=== PATIENT | female | born 1960 | race Caucasian/White ===

== ENCOUNTER → 2016-11-11 | Outpatient (CLI) | payer MEDICARE, OTHER | END | disposition home or self-care (01) | LOC: LABPAT 07:25 | PROVIDERS: ATTEND Orthopaedic Surgery | DX: Z01.812 Encounter for preprocedural laboratory examination (principal) | CPT/HCPCS: 86850; 86900; 86901; 87070 ==

== ENCOUNTER 2016-11-22 06:30 | Inpatient (IN) | payer MEDICARE, OTHER ==
[2016-11-18 10:45] VITALS: BMI 33.9
--- NOTE | 2016-11-21 20:51 | HP ---
DATE OF ADMISSION: CHIEF COMPLAINT: Right hip pain. HISTORY OF PRESENT ILLNESS: The patient is a 56-year-old female on disability who presents with progressive right hip pain secondary to osteoarthrosis despite conservative measures. She has pain that limits her normal weight-bearing activities. She has been taking Irwin for this. PAST MEDICAL HISTORY: Significant for asthma, arthritis, hypertension, and depression. PAST SURGICAL HISTORY: Significant for right and left knee arthroscopy. FAMILY HISTORY: Significant for heart disease and cancer. SOCIAL HISTORY: Significant for 1 pack per day tobacco use x 40 years; however, she quit 3 years ago. CURRENT MEDICATIONS: 1. Atorvastatin. 2. Lamictal. 3. Hydrochlorothiazide. 4. Losartan. 5. Lyrica. 6. Metformin. 7. Prilosec. 8. Xanax. 9. Irwin. She has GI upset with Motrin; however, no telly drug allergies. On examination, the patient is approximately 5 feet 4 inches, 172 pounds of endomorphic habitus. HEENT exam is nonfocal. Neck is supple. Passive motion of the right hip, flexion 80 degrees, external rotation with the hip flexed 60 degrees, internal rotation is 10 degrees with pain. Clinically, she has got 1 cm shortening of right lower extremity compared to the left. Her distal neurovascular exam appears be intact in the right lower extremity. AP of the pelvis obtained in the office show severe right hip osteoarthrosis. IMPRESSION: Right hip severe osteoarthrosis-symptomatic. RECOMMENDATIONS: I talked to the patient at length regarding her treatment options. At this point, she is quite limited because of pain related to her osteoarthrosis. After thorough discussion of her options, she opts to proceed with surgery. We will plan to proceed with right total hip arthroplasty. Risks and benefits are discussed at length in layman's terms. We will institute DVT prophylaxis postoperatively. Patient underwent preoperative cardiac evaluation by Dr. Salcedo. AYALA
[~2016-11-22 06:30] MED LIST: ACETAMINOPHEN TAB 500 MG TAB PO ONE; DEXAMETHASONE SOD PHOSPHATE 10 MG/ML 1 ML VIAL IV ONE; LIDOCAINE 1% 20 ML VIAL (10MG/ML) FOR IV START INTRADERMA PRN; MELOXICAM 7.5 MG TAB PO ONE; MIDAZOLAM 2 MG/2 ML VIAL IV PRN; ONDANSETRON 4 MG/2 ML VIAL IVP ONE; SCOPOLAMINE 1.5MG/72HR PATCH TRANSDERM ONE; TRANEXAMIC ACID 1,000 MG in SODIUM CHLORIDE 0.9% 100 ML IVPB ONE; ceFAZolin 2 GM in SODIUM CHLORIDE 0.9% 100 ML IVPB ONE
[2016-11-22] MEDS: LACTATED RINGERS 1,000 ML IV SCH ×2 (06:56→11:46)
[2016-11-22 07:12] LABS: Glucose,Whole Blood 122 mg/dL (75-99)
[2016-11-22] MEDS ORDERED: fentaNYL (PF) 50 MCG/ML 2 ML AMP ONE (08:00)
[2016-11-22] MEDS ORDERED: HYDROmorphone (PF) 1 MG/ML ONE (08:00)
[2016-11-22] MEDS ORDERED: SODIUM CHLORIDE 0.9% 100 ML BAG ONE (08:00)
[2016-11-22] MEDS ORDERED: MIDAZOLAM 2 MG/2 ML VIAL ONE (08:00)
[2016-11-22] MEDS ORDERED: PHENYLEPHRINE-0.9% NACL SYG 1 MG/10 ML SYRINGE ONE (08:00)
[2016-11-22] MEDS ORDERED: PROPOFOL 10 MG/ML 20 ML VIAL IV ONE (08:00)
[2016-11-22] MEDS ORDERED: TRANEXAMIC ACID 1,000 MG/10 ML VIAL ONE (08:00)
[2016-11-22] MEDS ORDERED: SODIUM CHLORIDE 0.9% IRRIG 1,000 ML BTL IRRIGATION ONE (08:00)
[2016-11-22] MEDS ORDERED: HEPARIN SODIUM,PORCINE 10,000 UNIT/ML 1 ML VIAL ONE (08:00)
[2016-11-22] MEDS ORDERED: LACTATED RINGERS 1,000 ML IV ONE (08:53)
[2016-11-22] MEDS ORDERED: ceFAZolin 3,000 MG in SODIUM CHLORIDE 0.9% IRRIGATIO 3,000 ML IRRIGATION ONE (10:08)
[2016-11-22] MEDS ORDERED: ONDANSETRON 4 MG/2 ML VIAL IVP PRN ×2 (10:18→11:24)
[2016-11-22] MEDS ORDERED: NALOXONE 0.4 MG/ML 1 ML VIAL IV PRN ×2 (10:18→11:24)
[2016-11-22] MEDS ORDERED: HYDROmorphone 1 MG/ML 1 ML SYRINGE IVP PRN ×2 (10:18)
[2016-11-22] MEDS ORDERED: traMADol 50 MG TAB PO PRN (10:18)
[2016-11-22] MEDS ORDERED: MAGNESIUM HYDROXIDE 2,400 MG/10 ML CUP PO PRN (10:18)
[2016-11-22] MEDS ORDERED: HYDROcodone/APAP 7.5-325MG 1 EACH TAB PO PRN (10:18)
--- NOTE | 2016-11-22 10:41 | P.OP ---
Date of Procedure: 11/22/16 Preoperative Diagnosis: Severe right hip osteoarthrosis-primary Postoperative Diagnosis: Same Procedure(s) Performed: Right total hip arthroplasty/anterior approach/press-fit Implants: Depuy Corail size 9 press-fit high offset collared femoral stem, 32 mm +1 cobalt chrome femoral head, 50 mm acetabular shell with neutral polyethylene liner. Anesthesia: spinal Surgeon: Alex Patel Manager Clinical #1: Chang Ramos Estimated Blood Loss (ml): 750 Pathology: other (Femoral head) Condition: stable Disposition: PACU Indications for Procedure: The patient's a 56-year-old female who presents to progressive right hip pain secondary osteoarthrosis despite conservative measures. A discussion of the risks and benefits of operative intervention versus continued conservative measures was made with the patient. She opted to proceed with surgery. Operative risks to include infection, neurovascular injury, development of blood clots, possible fracture, possible dislocation, possible leg length discrepancy and need for subsequent procedures was discussed. Informed consent was obtained. Operative Findings: As below Description of Procedure: The patient was brought to the operating room, and after induction of spinal anesthesia was placed supine on the Corrie table. Fluoroscopy used to confirm the pelvis was level. The right lower extremity was prepped and draped in normal fashion. Preoperative templating was previously performed to estimate component positioning and sizes. A 12 cm incision was then made starting 3 finger breaths posterior and 2 finger breaths distal to the ASIS. The skin was incised sharply. Subcutaneous tissues were divided sharply. Electrocautery was used for hemostasis. The underlying fascia was identified. This was opened just anterior to the perforators. The muscle fibers were bluntly dissected between the tensor fascia sebas and the sartorius. A retractors placed along the superior femoral neck. The posterior fascia was opened with electrocautery. The lateral circumflex vessels were identified and coagulated prior to transection. A retractor was placed perpendicular to the inguinal ligament over the anterior acetabular rim. A wide capsulotomy was performed. The saddle region was debrided. The hip was then gently dislocated utilizing a corkscrew. It was then relocated. A femoral neck osteotomy was made 1-1/2 cm above the level lesser trochanter with a sagittal saw at a 45 angle the shaft. The head was then extracted. Attention was paid towards preparing the acetabulum. Retractors were placed anterior and posteriorly. The remaining labral and capsular tissue sharply debrided clearly defining the acetabular margins. I began reaming with a 39 mm reamer taking care to initially medialize and then reaming at 45 of abduction and 20 of anteversion. Sequential reaming is performed up to 49 mm. This was down to a bleeding bony surface. A trial 50 mm acetabular shell was inserted in the same orientation and was fully seated. There is good rim fit and stability. This was verified with fluoroscopy. The trial acetabular shell was removed and the final one inserted in the same 45 of abduction and 20 of anteversion. This was fully seated. There was good rim fit and stability. I did place a posterior superior 6.5 mm x 25 mm cancellus screw with good purchase. A neutral polyethylene liner was gently impacted. Care was taken to avoid any soft tissue interposition. Pulsatile lavage was utilized. Attention was then paid towards preparing the proximal femur. The proximal femur was exposed and a box chisel was used to open the metaphyseal region. A canal finder was used to find the femoral canal. Sequential broaching was performed up to a size 9 high offset stem. A calcar mill was used to fashion the medial calcar. Care was taken to lateralize proximally. A high offset neck along with a 32 mm +1 trial head was placed. The hip was gently relocated. Fluoroscopy was used to verify leg length and component positioning. The hip was gently dislocated. The trial components were then removed. The size 9 high offset collared femoral stem was inserted parallel to the posterior cortex of the femur and was fully seated. There was good rotational stability. The 32 mm +1 cobalt chrome femoral head was gently impacted. The hip was gently relocated. Placed in full extension with 60 of external rotation and then 60 of extension and 60 of external rotation and was felt to be stable. I felt there was adequate taoism was leg length and soft tissue tension. Pulsatile lavage was again utilized. The fascia was closed with running 0 Vicryl suture. The subcutaneous tissues reapproximated interrupted 2-0 Vicryl sutures. The skin was reapproximated with 3-0 subcuticular strata fix suture. Skin tape and adhesive was applied. A sterile dressing was applied. The patient was awoken from sedation and transferred to the recovery room in good condition. Blood loss was estimated at 750 mL. She did receive over 300 cc of Cell Saver back. She also received 2 doses of IV TXA. Sponge and needle counts were correct at the end the case. No complications were incurred.
[2016-11-22] MEDS: HYDROmorphone 1 MG/ML 1 ML SYRINGE IVP PRN ×2 (10:54→11:02)
--- NOTE | 2016-11-22 11:08 | XR ---
Limited right hip HISTORY: Status post hip arthroplasty 2 intraoperative C-arm images document the procedure
--- NOTE | 2016-11-22 11:08 | FL ---
Fluoroscopy HISTORY: Pain 57 seconds fluoroscopy time supplied to the referring clinician. 2 intraoperative C-arm images docum ent the procedure. See dictated report from orthopedic surgery.
--- NOTE | 2016-11-22 11:16 | XR ---
Right hip HISTORY: Postop Single frontal view of the right hip is submitted. Patient is status post right hip arthroplasty. There is anatomic alignment. No evident fracture. This density present in the soft tissues compatible with postop day. Small ossific densities are also pre sent which are likely postoperative. IMPRESSION: Orthopedic follow-up
[2016-11-22] MEDS ORDERED: MORPHINE SULFATE 4 MG/ML SYRINGE IVP PRN (11:24)
[2016-11-22] MEDS ORDERED: diphenhydrAMINE 50 MG/ML 1 ML VIAL IVP PRN (11:24)
[2016-11-22 11:56] LABS: Glucose,Whole Blood 141 mg/dL (75-99)
[2016-11-22] MEDS: MORPHINE SULFATE 4 MG/ML SYRINGE IVP PRN ×3 (14:21→20:36)
[2016-11-22] MEDS: ceFAZolin 2 GM in SODIUM CHLORIDE 0.9% 100 ML IVPB SCH ×2 (15:47→23:13)
[2016-11-22 16:37] LABS: Glucose,Whole Blood 218 mg/dL (75-99)
[2016-11-22] MEDS: SENNOSIDES-DOCUSATE SODIUM 1 EACH TAB PO SCH (20:36)
[2016-11-22 20:45] LABS: Glucose,Whole Blood 153 mg/dL (75-99)
[2016-11-22] MEDS ORDERED: ALBUTEROL NEBULIZED 2.5 MG/3 ML INHALATION PRN (21:06)
--- NOTE | 2016-11-22 22:40 | CONS ---
DATE OF CONSULTATION: 11/22/2016 REASON FOR CONSULTATION: Medical management, requested by Dr. Patel. CONSULTATION: This is a very pleasant 56-year-old patient of Dr. Bowers whose chronic stable medical conditions include COPD, diabetes, fibromyalgia, hyperlipidemia, hypertension, bipolar and chronic respiratory failure, on 2 liters of oxygen at home. Patient has undergone a right total hip arthroplasty. Patient had nausea earlier today, which is now settling down. Oxygen is back on. Breathing is stable. Pain is controlled. No chest pain. REVIEW OF SYSTEMS: CONSTITUTIONAL: None. HEENT: None. RESPIRATORY: Occasionally short of breath. CARDIOVASCULAR: None. GASTROINTESTINAL: None. GENITOURINARY: None. MUSCULOSKELETAL: Aches and pains in the joints. DERMATOLOGICAL: None. HEMATOLOGIC: None. LYMPHATICS: None. PSYCHIATRY: None. NEUROLOGICAL: None. PAST MEDICAL HISTORY: 1. COPD. 2. Diabetes mellitus, type 2. 3. Fibromyalgia. 4. Hypertension. 5. Hyperlipidemia. 6. Bipolar disorder. 7. Schizoaffective disorder. 8. Chronic respiratory failure, on 2 liters of oxygen at home. 9. Sleep apnea; does not use a CPAP machine. PAST SURGICAL HISTORY: 1. Appendectomy. 2. Hernia repair. 3. Hysterectomy. 4. Tonsillectomy. 5. Right total knee arthroplasty. 6. ASD repair. 7. Bilateral eye muscle surgery. 8. Right cataract surgery. SOCIAL HISTORY: Patient smoked a pack to a pack and a half a day for 40 years; stopped in 2007. Lives with her daughter. FAMILY HISTORY: Alcoholism, brain cancer, stroke. HOME MEDICATIONS: 1. Metformin 500 mg p.o. b.i.d. 2. Lamictal 150 mg p.o. b.i.d. 3. Lyrica 100 mg p.o. b.i.d. 4. Potassium 10 mEq p.o. b.i.d. 5. Omeprazole 20 mg p.o. b.i.d. 6. Trileptal 150 mg p.o. b.i.d. 7. Antivert 50 mg p.o. b.i.d. 8. Cozaar 50 mg p.o. daily. 9. Garrison 7.5 one tablet q.4 p.r.n. 10. Advair HFA 2 puffs b.i.d. 11. Vitamin D3 1000 units p.o. daily. 12. Hydrochlorothiazide ( ) mg p.o. daily. 13. Lipitor 20 mg p.o. daily. 14. ProAir 1 puff q.6 p.r.n. 15. Xanax 0.5 p.o. q.i.d. 16. Xarelto 10 mg p.o. daily. ALLERGIES: IBUPROFEN causing vomiting. On examination, temperature 97.6, pulse 77, respiration 16, blood pressure 123/73, pulse ox 94% on room air. GENERAL APPEARANCE: Well built; BMI of 33.9. Sitting up in bed. EYES: Pupils equal. Conjunctivae normal. HEENT: External appearance of nose and ears normal. Oral cavity normal. NECK: JVD not raised. Mass not palpable. RESPIRATORY: Effort normal. LUNGS: Diminished breath sounds. CARDIOVASCULAR: First and second sounds normal. No edema. ABDOMEN: Soft, nontender. Liver and spleen not palpable. LYMPHATIC: No lymph node palpable in neck or axillae. PSYCHIATRY: Alert and oriented x3. Mood and affect normal. NEUROLOGICAL: Pupils equal. Cranial nerves grossly intact. INVESTIGATIONS: Accu-Cheks are noted. ASSESSMENT: 1. Right total knee arthroplasty. 2. Chronic obstructive pulmonary disease in an ex-smoker. 3. Diabetes mellitus, type 2, on oral hypoglycemic. 4. Chronic fibromyalgia. 5. Hyperlipidemia. 6. Essential hypertension. 7. Bipolar disorder, stable. 8. Chronic hypoxic respiratory failure, on home oxygen 2 liters. 9. Nausea as a side effect of pain medication, improved. PLAN: Patient's home medications will be resumed. Accu-Cheks will be followed. Patient is on Xarelto for DVT prophylaxis. Care was discussed with the patient. Patient should follow up with Dr. Bowers upon discharge. Thank you, Dr. Patel.
[2016-11-22] MEDS: LOSARTAN 50 MG TAB PO SCH (23:08)
[2016-11-22] MEDS: PREGABALIN 100 MG CAP PO SCH (23:10)
[2016-11-22] MEDS: OXcarbazepine 150 MG TAB PO SCH (23:11)
[2016-11-22] MEDS: PANTOPRAZOLE 40 MG TABLET PO SCH (23:11)
[2016-11-22] MEDS: ALPRAZolam 0.5 MG TAB PO SCH (23:11)
[2016-11-22] MEDS: lamoTRIgine 100 MG TAB PO SCH (23:12)
[2016-11-22] MEDS: POTASSIUM CHLORIDE ER 10 MEQ TAB.ER.PRT PO SCH (23:12)
[2016-11-22] MEDS: metFORMIN 500 MG TAB PO SCH (23:12)
[2016-11-23] MEDS: HYDROcodone/APAP 7.5-325MG 1 EACH TAB PO PRN ×3 (05:57→17:07)
[2016-11-23 07:18] LABS: Anisocytosis Slight; Basophils % (A) 0 %; CH 28.2; Eosinophils # (A) 0.1 k/uL (0-0.7); Eosinophils % (A) 2 %; HCT 32.4 % (34.0-46.0); HDW 2.83; HGB 10.4 gm/dL (11.4-16.0); Luc # (Auto) 0.14; Luc % (Auto) 2; Lymphocytes # (A) 1.9 k/uL (1.0-4.8); Lymphocytes % (A) 26 %; MCH 27.5 pg (25.0-35.0); MCHC 32.1 g/dL (31.0-37.0); MCV 85.7 fL (80.0-100.0); Mean Platelet Volume 6.7; Monocytes # (A) 0.5 k/uL (0-1.0); Monocytes % (A) 7 %; Neutrophils # (A) 4.5 k/uL (1.3-7.7); Neutrophils % (A) 62 %; RBC 3.78 m/uL (3.80-5.40); RDW 16.3 % (11.5-15.5); WBC 7.2 k/uL (3.8-10.6); WBC (Perox) 7.83
--- NOTE | 2016-11-23 07:24 | P.PN ---
Progress Note - Text Date: 11/23/2016 Time: 707 The patient is status post, total right hip arthroplasty. Vital signs stable VAS: 2-3-10 Patient received supplemental pain medications yesterday. Her pain at this time seems to be controlled. The patient incurred some minimal itching yesterday, this itching is now subsiding. Pain meds to be managed by service.
[2016-11-23] MEDS: lamoTRIgine 100 MG TAB PO SCH ×2 (07:37→22:55)
[2016-11-23] MEDS: PANTOPRAZOLE 40 MG TABLET PO SCH ×2 (07:37→17:07)
[2016-11-23] MEDS: POTASSIUM CHLORIDE ER 10 MEQ TAB.ER.PRT PO SCH ×2 (07:37→22:56)
[2016-11-23] MEDS: metFORMIN 500 MG TAB PO SCH ×2 (07:38→22:57)
[2016-11-23] MEDS: OXcarbazepine 150 MG TAB PO SCH ×2 (07:38→22:56)
[2016-11-23] MEDS: ALPRAZolam 0.5 MG TAB PO SCH ×4 (07:38→22:56)
[2016-11-23] MEDS: CHLORTHALIDONE 25 MG TAB PO SCH (07:39)
[2016-11-23] MEDS: PREGABALIN 100 MG CAP PO SCH ×2 (07:39→22:56)
[2016-11-23] MEDS: RIVAROXABAN 10 MG TAB PO SCH (07:39)
[2016-11-23] MEDS: ATORVASTATIN 20 MG TAB PO SCH (07:39)
[2016-11-23] MEDS: LOSARTAN 50 MG TAB PO SCH (07:40)
[2016-11-23 07:45] LABS: Glucose,Whole Blood 114 mg/dL (75-99)
[2016-11-23] MEDS: SYMBICORT 80-4.5 MCG INHALER INHALATION SCH (08:30)
[2016-11-23] MEDS ORDERED: FAMOTIDINE 20 MG TAB PO SCH (09:00)
[2016-11-23 11:14] LABS: Glucose,Whole Blood 117 mg/dL (75-99)
--- NOTE | 2016-11-23 11:53 | P.PN ---
Subjective Principal diagnosis: Status post right total hip arthroplasty Patient seen today resting in a hospital bed, she appears to be no acute distress. Objective - Vital Signs Vital signs: Vital Signs Temp 98.4 F 11/23/16 07:00 Pulse 81 11/23/16 07:00 Resp 16 11/23/16 07:00 BP 115/53 11/23/16 07:00 Pulse Ox 92 L 11/23/16 07:00 Intake & Output 11/22/16 11/23/16 11/23/16 18:59 06:59 18:59 Intake Total 1971 630 180 Output Total 1000 1500 600 Balance 971 -870 -420 Weight 86.183 kg Intake: IV 1851 630 Lactated Ringers 1,000 ml 140 630 @ 70 mls/hr IV .[id number] RAE Rx#:[id number] Oral 120 180 Output: Urine 250 1500 600 Uretheral (Almeida) 1500 500 Estimated Blood Loss 750 Other: Voiding Method Indwelling Catheter Indwelling Catheter Indwelling Catheter # Voids 1 - Exam Right lower extremity: Incision is clean, dry and intact. Minimal ecchymosis present on the medial and lateral aspects of the incision. Calf is soft, no tenderness with palpation. Plantar flexion, dorsiflexion, EHL, FHL are intact. Sensory exam to light touch throughout the extremities intact. Cap refills less than 2 seconds. - Labs CBC & Chem 7: 11/23/16 06:38 Labs: Abnormal Lab Results - Last 24 Hours (Table) 11/22/16 11/22/16 11/22/16 Range/Units 11:36 16:34 20:33 RBC (3.80-5.40) m/uL Hgb (11.4-16.0) gm/dL Hct (34.0-46.0) % RDW (11.5-15.5) % POC Glucose (mg/dL) 141 H 218 H 153 H (75-99) mg/dL 11/23/16 11/23/16 11/23/16 Range/Units 06:38 07:43 11:09 RBC 3.78 L (3.80-5.40) m/uL Hgb 10.4 L (11.4-16.0) gm/dL Hct 32.4 L (34.0-46.0) % RDW 16.3 H (11.5-15.5) % POC Glucose (mg/dL) 114 H 117 H (75-99) mg/dL Assessment and Plan Plan: Assessment: 1. Postop day #1 status post right total hip arthroplasty Plan: 1. Pain control, continue supportive oral medication 2. Continue patient on nasal cannula for oxygen and IV fluids due to lightheadedness with ambulation 3. GI and DVT prophylaxis, continue Xarelto 10 mg 4. Daily dressing changes/ice the hip region 5. Encourage incentive spirometer 6. Medical recommendations 7. Discharge planning: Patient likely be discharged home tomorrow Time with Patient: Less than 30
--- NOTE | 2016-11-23 11:54 | P.DS ---
Providers Date of admission: 11/22/16 06:30 Expected date of discharge: 11/24/16 Attending physician: Alex Patel Consults: 11/22/16 10:18 Consult Physician Routine Consulting Provider: Rhett Garcia Consult Reason/Comments: medical management Do you want consulting provider notified?: Yes Primary care physician: Amado Bowers Hospital Course: Date of admission: 11/22/2016 Date of discharge: 11/24/2016 Admission diagnosis: Status post right total hip arthroplasty Discharge diagnosis: Same Attending physician: Dr. Patel Surgical procedures: Right total hip arthroplasty Brief history: Patient is a 56-year-old female with a history of progressive primary right hip osteoarthritis. At this point patient has failed conservative treatment measures and has opted to proceed with a elective right total hip arthroplasty. Hospital course: Details of patient's surgery can be found in operative report. Patient tolerated the procedure well and was subsequently transported to orthopedic floor. Patient's orthopeidc and medical care was provided daily. Patient had daily laboratory tests performed for evaluation of overall blood counts. Patient had daily physical therapy to include strengthening range of motion as well as education with walker ambulation. Patient was treated with Xarelto for their postoperative DVT prophylaxis during their inpatient stay. Patient was noted to have a relatively uneventful postoperative course. Patient reported satisfactory pain control with oral pain medications by postoperative day 0. Patient showed satisfactory progress with physical therapy. Patient moved steadily through the program and had no difficulty meeting the goals by postoperative day 2. Given patient's otherwise satisfactory course and having met physical therapy goals, plan is to discharge patient home on postoperative day 2. Discharge condition/disposition: Patient will be discharged home in stable condition. Discharge medications: Instructions are given on resumption of patient's normal daily medications per primary care recommendation, in addition patient will be prescribed Roan[place] 7.5 mg/325 mg, Colace 100 mg, Xarelto 10 mg. Discharge instructions: 1. Wound care and infection precautions, keep incision dry and covered while showering, no lotions, creams, moisturizers. No soaking, tubs, pools, hottubs. Do not scrub over the incision. 2. Weight-bear as tolerated with walker / cane until follow-up. 3. Ice and elevate when necessary. Do not exceed 20 minutes per hour with ice pack. 4. Utilize compression sleeve until seen at first follow up appointment. 5. Visiting nursing care. 6. Home physical therapy. 7. Pain meds and anticoagulants per prescription. 8. Pain medication has potential to cause constipation. Increase oral fluid and fiber intake. Contact primary care provider if you have not had a bowel movement within 48 hours after discharge 9. No anti-inflammatory medication until discussed at first post operative visit, this including Motrin, Aleve, Mobic, Diclofenac. 10. Follow up in office at 2 weeks postop with Rolan Ramos PA-C 11. Follow up with your primary care doctor 7-10 days after discharge. 12. Contact [facility] with any questions, . Procedures: Right total hip arthroplasty Patient Condition at Discharge: Good Plan - Discharge Summary New Discharge Prescriptions: Docusate [Colace] 100 mg PO DAILY #30 capsule HYDROcodone/APAP 7.5-325MG [Roanoke 7.5] 1 - 2 each PO Q6HR PRN #60 tab PRN Reason: Pain Rivaroxaban [Xarelto] 10 mg PO DAILY #28 tab Discharge Medication List Atorvastatin [Lipitor] 20 mg PO DAILY tab 04/30/15 [Rx] Chlorthalidone [Hygroton] 50 mg PO DAILY tab 04/30/15 [Rx] Albuterol Sulfate [Proair Respiclick] 1 puff INHALATION RT-Q6H PRN 08/13/15 [ History] Losartan [Cozaar] 50 mg PO DAILY 08/13/15 [History] metFORMIN HCL 500 mg PO BID 08/13/15 [History] ALPRAZolam [Xanax] 0.5 mg PO QID 12/29/15 [History] Cholecalciferol [Vitamin D3] 1,000 unit PO DAILY 12/29/15 [History] Omeprazole 20 mg PO BID 12/29/15 [History] Pregabalin [Lyrica] 100 mg PO BID 01/07/16 [History] Fluticasone/Salmeterol [Advair Hfa 115-21 Mcg Inhaler] 2 puff INHALATION RT-BID 11/18/16 [History] Meclizine [Antivert] 50 mg PO BID 11/18/16 [History] OXcarbazepine [Trileptal] 150 mg PO BID 11/18/16 [History] Potassium Chloride [Klor-Con 10] 10 meq PO BID 11/18/16 [History] lamoTRIgine [LaMICtal] 150 mg PO BID 11/18/16 [History] Rivaroxaban [Xarelto] 10 mg PO DAILY #28 tab 11/22/16 [Rx] Docusate [Colace] 100 mg PO DAILY #30 capsule 11/24/16 [Rx] HYDROcodone/APAP 7.5-325MG [Ro[place] 7.5] 1 - 2 each PO Q6HR PRN #60 tab 11/24/16 [ Rx] Follow up Appointment(s)/Referral(s): [facility], [NON-STAFF] - 1 Week Chang Ramos PAC [PHYSICIAN PLYCOR OPERATOR] - 12/09/16 3:40 pm Activity/Diet/Wound Care/Special Instructions: Orthopedic Discharge Instructions: 1. Wound care and infection precautions, keep incision dry and covered while showering, no lotions, creams, moisturizers. No soaking, pools, hot tubs. Do not scrub over incision. 2. Weight-bear as tolerated with walker / cane until follow-up. 3. Ice and elevate when necessary. Do not exceed 20 minutes per hour with ice pack. 4. Utilize compression sleeve until seen at first follow up appointment. 5. Visiting nursing care. 6. Home physical therap. 7. Pain meds and anticoagulants per prescription. 8. Pain medication has potential to cause constipation. Increase oral fluid and fiber intake. Contact primary care provider if you have not had a bowel movement within 48 hours after discharge. 9. No anti-inflammatory medication until discussed at first post operative visit, this including Motrin, Aleve, Mobic, Diclofenac. 10. Follow up in office at 2 weeks postop with Rolan Ramos PA-C 11. Follow up with your primary care doctor 7-10 days after discharge. 12. Contact [facility] with any questions, . Discharge Disposition: HOME WITH HOME HEALTH SERVICES
[2016-11-23] MEDS: LACTATED RINGERS 1,000 ML IV SCH (16:08)
[2016-11-23] MEDS: INSULIN LISPRO (humaLOG) 300 UNIT/3 ML VIAL SQ SCH ×2 (17:21→22:54)
[2016-11-23 17:25] LABS: Glucose,Whole Blood 138 mg/dL (75-99)
[2016-11-23 20:17] LABS: Glucose,Whole Blood 119 mg/dL (75-99)
[2016-11-23 22:50] LABS: Hemoglobin A1C 6.6 % (4.2-6.1)
[2016-11-23] MEDS: SENNOSIDES-DOCUSATE SODIUM 1 EACH TAB PO SCH (22:56)
[2016-11-24 01:53] VITALS: RESP 16
[2016-11-24] MEDS: HYDROcodone/APAP 7.5-325MG 1 EACH TAB PO PRN ×2 (02:06→08:20)
[2016-11-24] MEDS: LACTATED RINGERS 1,000 ML IV SCH (03:06)
[2016-11-24] MEDS: SYMBICORT 80-4.5 MCG INHALER INHALATION SCH ×2 (05:05→08:49)
--- NOTE | 2016-11-24 06:23 | PN ---
DATE OF SERVICE: 11/23/2016 PRESENTING COMPLAINT: Right ( ) surgery. INTERVAL HISTORY: Patient was seen by me earlier today, status post right total ( ) arthroplasty. Nausea is better. No chest pain or shortness of breath. Has been out of bed. Did tolerate her breakfast. Review of systems done for constitutional, cardiovascular, GI, pulmonary; relevant findings as above. Current medications are reviewed. On examination, temperature 98.4, pulse 81, respirations 16, blood pressure 115/53, pulse ox 92% on room air. GENERAL APPEARANCE: Sitting up, comfortable. EYES: Pupils equal. Conjunctivae normal. NECK: JVD not raised. Mass not palpable. RESPIRATORY: Effort normal. LUNGS: Diminished breath sounds. CARDIOVASCULAR: First and second sounds normal. No edema. ABDOMEN: Soft, nontender. Liver and spleen not palpable. PSYCHIATRY: Alert and oriented x3. Mood and affect normal. INVESTIGATIONS: White count 7.2, hemoglobin 10.4 ASSESSMENT: 1. Right total ( ) arthroplasty. 2. Chronic obstructive pulmonary disease in an ex-smoker. 3. Diabetes mellitus type 2 on oral hypoglycemic. 4. Chronic fibromyalgia. 5. Hyperlipidemia. 6. Essential hypertension. 7. Bipolar disorder, stable. 8. Chronic hypoxic respiratory failure on home oxygen 2 L. 9. Nausea, a side effect of pain medication, improved. PLAN: Continue current medication and treatment plan. Care was discussed with the patient. Thank you, Dr. Patel.
[2016-11-24 07:16] LABS: Glucose,Whole Blood 104 mg/dL (75-99)
[2016-11-24 07:25] VITALS: BP 92/48; PULSE 79; TEMP 98.7
[2016-11-24] MEDS: INSULIN LISPRO (humaLOG) 300 UNIT/3 ML VIAL SQ SCH (08:09)
[2016-11-24] MEDS: ALPRAZolam 0.5 MG TAB PO SCH (08:15)
[2016-11-24] MEDS: lamoTRIgine 100 MG TAB PO SCH (08:17)
[2016-11-24] MEDS: ATORVASTATIN 20 MG TAB PO SCH (08:18)
[2016-11-24] MEDS: OXcarbazepine 150 MG TAB PO SCH (08:18)
[2016-11-24] MEDS: POTASSIUM CHLORIDE ER 10 MEQ TAB.ER.PRT PO SCH (08:18)
[2016-11-24] MEDS: PREGABALIN 100 MG CAP PO SCH (08:18)
[2016-11-24] MEDS: metFORMIN 500 MG TAB PO SCH (08:18)
[2016-11-24] MEDS: LOSARTAN 50 MG TAB PO SCH (08:19)
[2016-11-24] MEDS: PANTOPRAZOLE 40 MG TABLET PO SCH (08:19)
[2016-11-24] MEDS: CHLORTHALIDONE 25 MG TAB PO SCH (08:19)
[2016-11-24] MEDS: RIVAROXABAN 10 MG TAB PO SCH (08:19)
--- NOTE | 2016-11-24 11:10 | P.PN ---
Subjective Principal diagnosis: Status post right total hip arthroplasty Patient seen today resting in a hospital bed, she appears to be no acute distress. Objective - Vital Signs Vital signs: Vital Signs Temp 98.7 F 11/24/16 07:00 Pulse 79 11/24/16 07:00 Resp 16 11/24/16 07:00 BP 92/48 11/24/16 07:00 Pulse Ox 92 L 11/24/16 07:00 Intake & Output 11/23/16 11/24/16 11/24/16 18:59 06:59 18:59 Intake Total 1540 Output Total 600 Balance 940 Intake: IV 800 Lactated Ringers 1,000 ml 800 @ 70 mls/hr IV .[id number] RAE Rx#:[id number] Oral 740 Output: Urine 600 Uretheral ([place]me[place]) 500 Other: Voiding Method Indwelling Catheter Toilet Toilet # Voids 1 1 - Exam Right lower extremity: Incision is clean, dry and intact. Minimal ecchymosis present on the medial and lateral aspects of the incision. Calf is soft, no tenderness with palpation. Plantar flexion, dorsiflexion, EHL, FHL are intact. Sensory exam to light touch throughout the extremities intact. Cap refills less than 2 seconds. - Labs CBC & Chem 7: 11/23/16 06:38 Labs: Abnormal Lab Results - Last 24 Hours (Table) 11/23/16 11/23/16 11/23/16 Range/Units 06:38 11:09 17:09 POC Glucose (mg/dL) 117 H 138 H (75-99) mg/dL Hemoglobin A1c 6.6 H (4.2-6.1) % 11/23/16 11/24/16 Range/Units 20:15 07:11 POC Glucose (mg/dL) 119 H 104 H (75-99) mg/dL Hemoglobin A1c (4.2-6.1) % Assessment and Plan Plan: Assessment: 1. Postop day #2 status post right total hip arthroplasty Plan: 1. Pain control, continue supportive oral medication 2. Continue patient on nasal cannula for oxygen and IV fluids due to lightheadedness with ambulation 3. GI and DVT prophylaxis, continue Xarelto 10 mg 4. Daily dressing changes/ice the hip region 5. Encourage incentive spirometer 6. Medical recommendations 7. Discharge planning: Patient will be discharged home today Time with Patient: Less than 30
[2016-11-24 11:35] LABS: Glucose,Whole Blood 81 mg/dL (75-99)
--- NOTE | 2016-11-25 07:57 | PN ---
DATE OF SERVICE: 11/24/2016 PRESENTING COMPLAINT: Surgery. INTERVAL HISTORY: This is a patient, status post surgery, doing well; sitting up, comfortable. Nausea is much better. Review of systems done for constitutional, cardiovascular , GI, pulmonary; relevant findings as above. Current medications are reviewed. On examination, temperature 98.7, pulse 79, respirations 16, blood pressure 92/48, pulse ox 92% on 3 L. GENERAL APPEARANCE: Sitting up, comfortable. EYES: Pupils equal. Conjunctivae normal. NECK: JVD not raised. Mass not palpable. RESPIRATORY: Effort normal. Lungs are slightly decreased breath sounds. CARDIOVASCULAR: First and second sounds normal. No edema. ABDOMEN: Soft, nontender. Liver and spleen not palpable. PSYCHIATRY: Alert and oriented x3. Mood and affect normal. INVESTIGATIONS: Accu-Cheks are noted. ASSESSMENT AND PLAN: 1. Right total ( ) arthroplasty. 2. Chronic obstructive pulmonary disease in an ex-smoker. 3. Diabetes mellitus type 2 on oral hypoglycemic. 4. Chronic fibromyalgia. 5. Hyperlipidemia. 6. Essential hypertension. 7. Bipolar disorder, stable. 8. Chronic hypoxic respiratory failure on home oxygen 2 L. PLAN: Patient is doing well. Continue current medication and treatment plan. Should follow with her family doctor.
== END 2016-11-24 13:05 | disposition home health service (06) | DRG 470 ==
LOC: 2ORMAIN 06:30 → 3SUR 10:30
PROVIDERS: ADMIT Orthopaedic Surgery; ATTEND Orthopaedic Surgery
PROC: 30233N0 Transfusion of Autologous Red Blood Cells into Peripheral Vein, Percutaneous Approach (ICD-10-PCS; 2016-11-22)
PROC: 0SR902A Replacement of Right Hip Joint with Metal on Polyethylene Synthetic Substitute, Uncemented, Open Approach (ICD-10-PCS; principal; 2016-11-22 08:00)
DX: M16.11 Unilateral primary osteoarthritis, right hip (principal); J96.11 Chronic respiratory failure with hypoxia; Z99.81 Dependence on supplemental oxygen; F25.9 Schizoaffective disorder, unspecified; J45.909 Unspecified asthma, uncomplicated; J44.9 Chronic obstructive pulmonary disease, unspecified; I10 Essential (primary) hypertension; F31.9 Bipolar disorder, unspecified; T40.2X5A Adverse effect of other opioids, initial encounter; E78.5 Hyperlipidemia, unspecified; G47.33 Obstructive sleep apnea (adult) (pediatric); E11.9 Type 2 diabetes mellitus without complications; M79.7 Fibromyalgia; R11.0 Nausea; Z88.6 Allergy status to analgesic agent; Z86.69 Personal history of other diseases of the nervous system and sense organs; Z87.74 Personal history of (corrected) congenital malformations of heart and circulatory system; Z90.710 Acquired absence of both cervix and uterus; Z96.651 Presence of right artificial knee joint; Z80.8 Family history of malignant neoplasm of other organs or systems; Z82.3 Family history of stroke; Z87.891 Personal history of nicotine dependence; Z90.49 Acquired absence of other specified parts of digestive tract; Z98.41 Cataract extraction status, right eye; Z81.1 Family history of alcohol abuse and dependence; Z82.49 Family history of ischemic heart disease and other diseases of the circulatory system; Z79.01 Long term (current) use of anticoagulants; Z79.84 Long term (current) use of oral hypoglycemic drugs; Z79.891 Long term (current) use of opiate analgesic; Z79.899 Other long term (current) drug therapy; Z87.01 Personal history of pneumonia (recurrent); Z91.19 Patient's noncompliance with other medical treatment and regimen
CPT/HCPCS: 73501; 83036; 85025; 86850; 86891; 86900; 86901; 88300; 94640

== ENCOUNTER 2018-10-07 20:15 | Emergency (ER) | payer MEDICARE, OTHER ==
[2018-10-07 20:20] VITALS: RESP 18
--- NOTE | 2018-10-07 21:18 | XR ---
EXAMINATION TYPE: XR Hip Complete RT DATE OF EXAM: 10/07/2018 CLINICAL HISTORY: Right hip pain and osteoarthritis. TECHNIQUE: Single AP portable view of right hip. COMPARISON: Right hip radiograph 11/22/2016 FINDINGS: Metallic hardware from right hip arthroplasty is seen and appears satisfactory in alignment and position. No evidence of periprosthetic fracture or hardware loosening. No evidence of additional fracture. IMPRESSION: No acute fracture or dislocation this patient with a total right hip arthroplasty.
[2018-10-07] MEDS ORDERED: SODIUM CHLORIDE 0.9% 1,000 ML IV STA (21:39)
[2018-10-07 22:58] LABS: Basophils # (A) 0.1 k/uL (0-0.2); Basophils % (A) 1 %; Eosinophils # (A) 0.2 k/uL (0-0.7); Eosinophils % (A) 3 %; HCT 45.9 % (34.0-46.0); HGB 14.8 gm/dL (11.4-16.0); Lymphocytes % (A) 26 %; MCH 28.1 pg (25.0-35.0); MCHC 32.2 g/dL (31.0-37.0); MCV 87.1 fL (80.0-100.0); Mean Platelet Volume 6.3; Monocytes # (A) 0.5 k/uL (0-1.0); Monocytes % (A) 6 %; Neutrophils # (A) 4.6 k/uL (1.3-7.7); Neutrophils % (A) 62 %; Platelet Count 262 k/uL (150-450); RBC 5.26 m/uL (3.80-5.40); RDW 15.5 % (11.5-15.5); WBC 7.5 k/uL (3.8-10.6)
[2018-10-07 23:18] LABS: Albumin 3.9 g/dL (3.5-5.0); Calcium 8.9 mg/dL (8.4-10.2); Potassium 3.7 mmol/L (3.5-5.1); Total Bilirubin 0.4 mg/dL (0.2-1.3); Total Protein 7.1 g/dL (6.3-8.2)
[2018-10-07] MEDS ORDERED: oxyCODONE-APAP 5-325MG 1 EACH TAB PO STA (23:52)
--- NOTE | 2018-10-08 00:23 | CT ---
EXAMINATION TYPE: CT femur RT w con DATE OF EXAM: 10/07/2018 COMPARISON: None HISTORY: right hip pain. No known injury. CT DLP: 910 mGycm Automated exposure control for dose reduction was used. CONTRAST: Performed with IV Contrast, patient injected with 100mL mL of Isovue 300. FINDINGS: There is a right hip prosthesis. Exam is limited slightly by the metal artifact. Components appear in anatomic position. I see no fracture nor dislocation. The visualized right hemipelvis appears intact . The proximal right femur appears intact. There is no evidence of a soft tissue mass. I see no patho logic fluid collection. There is noted in the right knee prosthesis. There is no sign of knee joint e ffusion. I see no pathologic enhancement. IMPRESSION: RIGHT HIP PROSTHESIS. NO FRACTURE SEEN. NO EVIDENCE OF OSTEOMYELITIS.
--- NOTE | 2018-10-08 00:34 | ED ---
General Adult HPI - General Chief complaint: Extremity Problem,Nontraumatic Stated complaint: Hip pain Source: patient, RN notes reviewed, old records reviewed Mode of arrival: ambulatory Limitations: no limitations - History of Present Illness Initial comments: 58-year-old female patient with past medical history of chronic back pain, diabetes type 2, COPD with nighttime O2, schizophrenia, status post total hip arthroplasty of right hip presents to ED with right hip pain. Patient reports that she has been walking more than usual recently in order to improve cardiovascular fitness. Patient reports that she has had a four day exacerbation of right hip pain. Patient reports that she has baseline chronic right hip pain however the quality of this pain is burning in nature as opposed to the dull the pain which she normally experiences. Patient is ambulatory. Patient denies any other symptoms including fever, nausea vomiting diarrhea, chest pain, shortness of breath, abdominal pain. Patient currently takes Percocet 10/325 4 times a day for chronic pain. Systemic: Pt denies fatigue, fever, rash. Pt denies weakness, night sweats, weight loss. Neuro: Pt denies headache, visual disturbances, syncope or pre-syncope. HEENT: Pt denies ocular discharge or irritation, otalgia, rhinorrhea, pharyngitis or notable lymphadenopathy. Cardiopulmonary: Pt denies chest pain, SOB, heart palpitations, dyspnea on exertion. Abdominal/GI: Pt denies abdominal pain, n/v/d. : Pt denies dysuria, burning w/ urination, frequency/urgency. Denies new onset urinary or bowel incontinence. MSK: Pt denies loss of strength or function in extremities. Neuro: Pt denies new onset weakness, paresthesias. - Related Data Home Medications Medication Instructions Recorded Confirmed Albuterol Sulfate [Proair 1 puff INHALATION RT-Q6H PRN 08/13/15 11/22/16 Respiclick] Losartan [Cozaar] 50 mg PO DAILY 08/13/15 11/22/16 metFORMIN HCL 500 mg PO BID 08/13/15 11/22/16 ALPRAZolam [Xanax] 0.5 mg PO QID 12/29/15 11/22/16 Cholecalciferol [Vitamin D3] 1,000 unit PO DAILY 12/29/15 11/22/16 Omeprazole 20 mg PO BID 12/29/15 11/22/16 Pregabalin [Lyrica] 100 mg PO BID 01/07/16 11/22/16 Fluticasone/Salmeterol [Advair Hfa 2 puff INHALATION RT-BID 11/18/16 11/22/16 115-21 Mcg Inhaler] Meclizine [Antivert] 50 mg PO BID 11/18/16 11/22/16 OXcarbazepine [Trileptal] 150 mg PO BID 11/18/16 11/22/16 Potassium Chloride [Klor-Con 10] 10 meq PO BID 11/18/16 11/22/16 lamoTRIgine [LaMICtal] 150 mg PO BID 11/18/16 11/22/16 Previous Rx's Medication Instructions Recorded Atorvastatin [Lipitor] 20 mg PO DAILY tab 04/30/15 Chlorthalidone [Hygroton] 50 mg PO DAILY tab 04/30/15 Rivaroxaban [Xarelto] 10 mg PO DAILY #28 tab 11/22/16 Docusate [Colace] 100 mg PO DAILY #30 capsule 11/24/16 HYDROcodone/APAP 7.5-325MG [[place] 1 - 2 each PO Q6HR PRN #60 tab 11/24/16 7.5] Allergies Allergy/AdvReac Type Severity Reaction Status Date / Time ibuprofen [From Motrin] AdvReac Vomiting Verified 10/07/18 20:21 Review of Systems ROS Statement: Those systems with pertinent positive or pertinent negative responses have been documented in the HPI. ROS Other: All systems not noted in ROS Statement are negative. Past Medical History Past Medical History: Asthma, COPD, Diabetes Mellitus, Fibromyalgia, Hyperlipidemia, Hypertension Additional Past Medical History / Comment(s): uses O2 at night 2 liters n/c, migraines, CHI 16 YRS AGO-NO SKULL FX, frequent nite time urination, no cpap History of Any Multi-Drug Resistant Organisms: None Reported Past Surgical History: Breast Surgery, Hernia Repair, Joint Replacement, Orthopedic Surgery Additional Past Surgical History / Comment(s): rtknee replacement, knee scopes, left foot, cyst removed from ovary, "hole in heart repair > 10 years ago", bilateral eyes as (was cross eyed), cyst removed from rt breast. Past Anesthesia/Blood Transfusion Reactions: No Reported Reaction Additional Past Anesthesia/Blood Transfusion Reaction / Comment(s): PT STATES THAT PULSE OX DOES NOT WORK ON FINGER-NEEDS TO BE PUT ON EAR FOR CORRECT READING RELATED TO COPD Past Psychological History: Anxiety, Bipolar, Depression, Schizoaffective Disorder Smoking Status: Former smoker Past Alcohol Use History: None Reported Past Drug Use History: None Reported - Past Family History Sister(s) Family Medical History: Cancer Father Family Medical History: Congestive Heart Failure (CHF) Mother Family Medical History: Cancer, Seizure Disorder Additional Family Medical History / Comment(s): hx of alchoholiosm, hx brain ca, stroke General Exam - General Exam Comments Initial Comments: Constitutional: NAD, AOX3, Pt has pleasant affect. HEENT: NC/AT, trachea midline, neck supple, no lymphadenopathy. Posterior pharynx non erythematous, without exudates. External ears appear normal, without discharge. Mucous membranes moist. Eyes PERRLA, EOM intact. There is no scleral icterus. No pallor noted. Cardiopulmonary: RRR, no murmurs, rubs or gallops, no JVD noted. Lungs CTAB in anterior and posterior pool. No peripheral edema. Abdominal exam: Abdomen soft and non-distended. Abdomen non-tender to palpation in all 4 quadrants. Bowel sounds active in LLQ. No hepatosplenomegaly. No ecchymosis Neuro: CN II-XII grossly intact. No nuchal rigidity. MSK: No posterior calf tenderness bilaterally, homans sign negative bilaterally. Posterior tibialis and radial pulse +2 bilaterally. Sensation intact in upper and lower extremities. Full active and passive ROM in lower extremities bilaterally. Pt is able to fully range her right hip without difficulty. No localized erythema or drainage on R hip. R hip mildly tender to palpation on lateral asepct. Pt ambulatory, heel to toe walkin intact. 5/5 strength in lower extremities. Limitations: no limitations Course Vital Signs 10/07/18 10/08/18 20:18 00:52 Temperature 98.5 F 98.0 F Pulse Rate 70 67 Respiratory 18 18 Rate Blood Pressure 130/77 129/69 O2 Sat by Pulse 94 L 94 L Oximetry Medical Decision Making - Medical Decision Making 58-year-old female patient with past medical history of chronic back pain, diabetes type 2, COPD with nighttime O2, schizophrenia, status post total hip arthroplasty of right hip presents to ED with right hip pain. Patient reports that she has been walking more than usual recently in order to improve cardiovascular fitness. Patient reports that she has had a four-day exacerbation of right hip pain. Patient reports that she has baseline chronic right hip pain however the quality of this pain is burning in nature as opposed to the dull the pain which she normally experiences. Pt VSS, sp02 at baseline for pt. Physical exam displayed: No posterior calf tenderness bilaterally, homans sign negative bilaterally. Posterior tibialis and radial pulse +2 bilaterally. Sensation intact in upper and lower extremities. Full active and passive ROM in lower extremities bilaterally. Pt is able to fully range her right hip without difficulty. No localized erythema or drainage on R hip. R hip mildly tender to palpation on lateral asepct. Pt ambulatory, heel to toe walkin intact. 5/5 strength in lower extremities. Investigations revealed non- impressive CBC, CMP. Plain film of right hip revealed no acute fracture dislocation. CT of right femur with contrast did not display any acute pathology. Patient reassured that her prosthesis was intact and there were no signs of inflammation. Patient verbalized understanding. Patient pain controlled in ED w/ oral analgesic. Patient has right home with daughter. Patient to follow-up with orthopedic surgeon consult. Patient to follow-up with family. Provider in 1-2 days. Patient to return to ED if new signs or symptoms develop or if condition worsens in any way. Patient seen in case discussed with Dr. Vega. - Lab Data Result diagrams: 10/07/18 22:29 10/07/18 22:29 Lab Results 10/07/18 10/07/18 Range/Units 22:29 22:29 WBC 7.5 (3.8-10.6) k/uL RBC 5.26 (3.80-5.40) m/uL Hgb 14.8 (11.4-16.0) gm/dL Hct 45.9 (34.0-46.0) % MCV 87.1 (80.0-100.0) fL MCH 28.1 (25.0-35.0) pg MCHC 32.2 (31.0-37.0) g/dL RDW 15.5 (11.5-15.5) % Plt Count 262 (150-450) k/uL Neutrophils % 62 % Lymphocytes % 26 % Monocytes % 6 % Eosinophils % 3 % Basophils % 1 % Neutrophils # 4.6 (1.3-7.7) k/uL Lymphocytes # 2.0 (1.0-4.8) k/uL Monocytes # 0.5 (0-1.0) k/uL Eosinophils # 0.2 (0-0.7) k/uL Basophils # 0.1 (0-0.2) k/uL Sodium 137 (137-145) mmol/L Potassium 3.7 (3.5-5.1) mmol/L Chloride 102 (98-107) mmol/L Carbon Dioxide 28 (22-30) mmol/L Anion Gap 7 mmol/L BUN 18 H (7-17) mg/dL Creatinine 0.96 (0.52-1.04) mg/dL Est GFR (CKD-EPI)AfAm 74 (>60 ml/min/1.73 sqM) Est GFR (CKD-EPI)NonAf 65 (>60 ml/min/1.73 sqM) Glucose 123 H (74-99) mg/dL Calcium 8.9 (8.4-10.2) mg/dL Total Bilirubin 0.4 (0.2-1.3) mg/dL AST 28 (14-36) U/L ALT 39 (9-52) U/L Alkaline Phosphatase 95 (38-126) U/L Total Protein 7.1 (6.3-8.2) g/dL Albumin 3.9 (3.5-5.0) g/dL Disposition Clinical Impression: Chronic hip pain Disposition: HOME SELF-CARE Condition: Good Instructions: Arthralgia (ED), Hip Pain (ED) Additional Instructions: Patient to adhere to previously discussed treatment plan and will take medication(s) as directed. Patient to follow up with PCP in 1-2 days. Patient to return to ED if symptoms do not improve. Is patient prescribed a controlled substance at d/c from ED?: No Referrals: Amado Bowers MD [Primary Care Provider] - 1-2 days Domingo Ayers MD [Medical Doctor] - 1-2 days Time of Disposition: 00:34
[2018-10-08 00:53] VITALS: BP 129/69; PULSE 67; TEMP 98
== END 2018-10-08 00:52 | disposition home or self-care (01) ==
LOC: EC 20:15
DX: G89.29 Other chronic pain (principal); M25.552 Pain in left hip; J44.9 Chronic obstructive pulmonary disease, unspecified; E11.9 Type 2 diabetes mellitus without complications; I10 Essential (primary) hypertension; M79.7 Fibromyalgia; F41.9 Anxiety disorder, unspecified; F31.9 Bipolar disorder, unspecified; Z87.891 Personal history of nicotine dependence; Z96.651 Presence of right artificial knee joint; Z79.84 Long term (current) use of oral hypoglycemic drugs; Z79.51 Long term (current) use of inhaled steroids; Z79.899 Other long term (current) drug therapy; Z88.6 Allergy status to analgesic agent
CPT/HCPCS: 36415; 80053; 85025; 73502; 73701; 99284; 96360; Q9967

== ENCOUNTER 2020-10-21 08:18 | Inpatient (IN) | payer MEDICARE, OTHER ==
[2020-10-21] MEDS ORDERED: ALBUTEROL HFA INHALER INHALATION STA (08:44)
[2020-10-21] MEDS ORDERED: ACETAMINOPHEN TAB 500 MG TAB PO STA (08:44)
[2020-10-21] MEDS ORDERED: IBUPROFEN 600 MG TAB PO STA (08:45)
--- NOTE | 2020-10-21 09:05 | ED ---
General Adult HPI - General Chief complaint: Shortness of Breath Stated complaint: fever/headache/chest congestion Time Seen by Provider: 10/21/20 08:20 Source: patient, RN notes reviewed, old records reviewed Mode of arrival: ambulatory Limitations: no limitations - History of Present Illness Initial comments: This is a 60-year-old female presents emergency department with past medical history of COPD and diabetes. Patient states she normally uses 2 L at night but lately she's been using a lot more because her pulse ox is been lowered per patient states his been going on for months. Patient comes in today because she's had 103 fever since chest a slight cough and more short of breath. Patient denies any change in smell or taste. Patient denies any diarrhea. Patient denies any chest pain or palpitations. Patient states she has no leg swelling or calf tenderness. Patient denies any abdominal pain. Patient denies any nausea vomiting. Patient denies any known exposure to COVID. - Related Data Home Medications Medication Instructions Recorded Confirmed Albuterol Sulfate [Proair 1 puff INHALATION RT-Q6H PRN 08/13/15 11/22/16 Respiclick] Losartan [Cozaar] 50 mg PO DAILY 08/13/15 11/22/16 metFORMIN HCL 500 mg PO BID 08/13/15 11/22/16 ALPRAZolam [Xanax] 0.5 mg PO QID 12/29/15 11/22/16 Cholecalciferol [Vitamin D3 (25 1,000 unit PO DAILY 12/29/15 11/22/16 Mcg = 1000 Iu)] Omeprazole 20 mg PO BID 12/29/15 11/22/16 Pregabalin [Lyrica] 100 mg PO BID 01/07/16 11/22/16 Fluticasone/Salmeterol [Advair Hfa 2 puff INHALATION RT-BID 11/18/16 11/22/16 115-21 Mcg Inhaler] Meclizine [Antivert] 50 mg PO BID 11/18/16 11/22/16 OXcarbazepine [Trileptal] 150 mg PO BID 11/18/16 11/22/16 Potassium Chloride [Klor-Con 10] 10 meq PO BID 11/18/16 11/22/16 lamoTRIgine [LaMICtal] 150 mg PO BID 11/18/16 11/22/16 Previous Rx's Medication Instructions Recorded Atorvastatin [Lipitor] 20 mg PO DAILY tab 04/30/15 Chlorthalidone [Hygroton] 50 mg PO DAILY tab 04/30/15 Rivaroxaban [Xarelto] 10 mg PO DAILY #28 tab 11/22/16 Docusate [Colace] 100 mg PO DAILY #30 capsule 11/24/16 HYDROcodone/APAP 7.5-325MG [[place] 1 - 2 each PO Q6HR PRN #60 tab 11/24/16 7.5] Allergies Allergy/AdvReac Type Severity Reaction Status Date / Time ibuprofen [From Motrin] AdvReac Vomiting Verified 10/21/20 08:24 Review of Systems ROS Statement: Those systems with pertinent positive or pertinent negative responses have been documented in the HPI. ROS Other: All systems not noted in ROS Statement are negative. Past Medical History Past Medical History: Asthma, COPD, Diabetes Mellitus, Fibromyalgia, Hyperlipidemia, Hypertension Additional Past Medical History / Comment(s): uses O2 at night 2 liters n/c, migraines, CHI 16 YRS AGO-NO SKULL FX, frequent nite time urination, no cpap History of Any Multi-Drug Resistant Organisms: None Reported Past Surgical History: Breast Surgery, Hernia Repair, Joint Replacement, Orthopedic Surgery Additional Past Surgical History / Comment(s): rtknee replacement, knee scopes, left foot, cyst removed from ovary, "hole in heart repair > 10 years ago", bilateral eyes as (was cross eyed), cyst removed from rt breast. Past Anesthesia/Blood Transfusion Reactions: No Reported Reaction Additional Past Anesthesia/Blood Transfusion Reaction / Comment(s): PT STATES THAT PULSE OX DOES NOT WORK ON FINGER-NEEDS TO BE PUT ON EAR FOR CORRECT READING RELATED TO COPD Past Psychological History: Anxiety, Bipolar, Depression, Schizoaffective Disorder Smoking Status: Former smoker Past Alcohol Use History: None Reported Past Drug Use History: None Reported - Past Family History Sister(s) Family Medical History: Cancer Father Family Medical History: Congestive Heart Failure (CHF) Mother Family Medical History: Cancer, Seizure Disorder Additional Family Medical History / Comment(s): hx of alchoholiosm, hx brain ca,stroke General Exam - General Exam Comments Initial Comments: GENERAL: Patient is well-developed and well-nourished. Patient is nontoxic and well- hydrated and is in mild distress. ENT: Neck is soft and supple. No significant lymphadenopathy is noted. Oropharynx is clear. Moist mucous membranes. Neck has full range of motion without eliciting any pain. EYES: The sclera were anicteric and conjunctiva were pink and moist. Extraocular movements were intact and pupils were equal round and reactive to light. Eyelids were unremarkable. PULMONARY: Patient is crackles bilateral bases CARDIOVASCULAR: There is a regular rate and rhythm without any murmurs gallops or rubs. ABDOMEN: Soft and nontender with normal bowel sounds. SKIN: Skin is clear with no lesions or rashes and otherwise unremarkable. NEUROLOGIC: Patient is alert and oriented x3. Cranial nerves II through XII are grossly intact. Motor and sensory are also intact. Normal speech, volume and content. Symmetrical smile. MUSCULOSKELETAL: Normal extremities with adequate strength and full range of motion. LYMPHATICS: No significant lymphadenopathy is noted PSYCHIATRIC: Normal psychiatric evaluation. Limitations: no limitations Course Vital Signs 10/21/20 10/21/20 10/21/20 08:22 09:05 09:11 Temperature 103 F H Pulse Rate 114 H 108 H Respiratory 22 26 H Rate Blood Pressure 122/62 128/98 O2 Sat by Pulse 87 L 91 L 93 L Oximetry 10/21/20 10/21/20 09:40 09:49 Temperature 102.4 F H Pulse Rate 101 H Respiratory 25 H Rate Blood Pressure 113/64 O2 Sat by Pulse 90 L Oximetry Medical Decision Making - Medical Decision Making EKG shows sinus tachycardia at 100 bpm CA interval 138 QRS is 84 QT interval 326 QTC is 439. Patient's EKG shows no ST segment elevation or depression Chest x-ray shows bilateral infiltrates. Calm test is positive. Patient's: Pneumonia. Patient received Tylenol Motrin for the temperature in the emergency department. Patient also received a breathing treatment emergency department. - Lab Data Result diagrams: 10/21/20 08:49 10/21/20 08:49 Lab Results 10/21/20 10/21/20 10/21/20 Range/Units 08:40 08:49 08:49 WBC 7.2 (3.8-10.6) k/uL RBC 5.33 (3.80-5.40) m/uL Hgb 15.1 (11.4-16.0) gm/dL Hct 46.1 H (34.0-46.0) % MCV 86.6 (80.0-100.0) fL MCH 28.4 (25.0-35.0) pg MCHC 32.8 (31.0-37.0) g/dL RDW 15.4 (11.5-15.5) % Plt Count 212 (150-450) k/uL MPV 7.0 Neutrophils % 81 % Lymphocytes % 9 % Monocytes % 7 % Eosinophils % 1 % Basophils % 1 % Neutrophils # 5.9 (1.3-7.7) k/uL Lymphocytes # 0.6 L (1.0-4.8) k/uL Monocytes # 0.5 (0-1.0) k/uL Eosinophils # 0.1 (0-0.7) k/uL Basophils # 0.1 (0-0.2) k/uL PT 10.4 (9.0-12.0) sec INR 1.0 (<1.2) APTT 23.1 (22.0-30.0) sec D-Dimer 0.85 H (<0.60) mg/L FEU Sodium (137-145) mmol/L Potassium (3.5-5.1) mmol/L Chloride (98-107) mmol/L Carbon Dioxide (22-30) mmol/L Anion Gap mmol/L BUN (7-17) mg/dL Creatinine (0.52-1.04) mg/dL Est GFR (CKD-EPI)AfAm (>60 ml/min/1.73 sqM) Est GFR (CKD-EPI)NonAf (>60 ml/min/1.73 sqM) Glucose (74-99) mg/dL Plasma Lactic Acid Gael (0.7-2.0) mmol/L Calcium (8.4-10.2) mg/dL Magnesium (1.6-2.3) mg/dL Total Bilirubin (0.2-1.3) mg/dL AST (14-36) U/L ALT (4-34) U/L Alkaline Phosphatase (38-126) U/L Lactate Dehydrogenase (313-618) U/L C-Reactive Protein (<10.0) mg/L Total Protein (6.3-8.2) g/dL Albumin (3.5-5.0) g/dL Influenza Type A (PCR) Not Detected (Not Detectd) Influenza Type B (PCR) Not Detected (Not Detectd) RSV (PCR) Not Detected (Not Detectd) SARS-CoV-2 (PCR) Detected A (Not Detectd) 10/21/20 10/21/20 Range/Units 08:49 08:49 WBC (3.8-10.6) k/uL RBC (3.80-5.40) m/uL Hgb (11.4-16.0) gm/dL Hct (34.0-46.0) % MCV (80.0-100.0) fL MCH (25.0-35.0) pg MCHC (31.0-37.0) g/dL RDW (11.5-15.5) % Plt Count (150-450) k/uL MPV Neutrophils % % Lymphocytes % % Monocytes % % Eosinophils % % Basophils % % Neutrophils # (1.3-7.7) k/uL Lymphocytes # (1.0-4.8) k/uL Monocytes # (0-1.0) k/uL Eosinophils # (0-0.7) k/uL Basophils # (0-0.2) k/uL PT (9.0-12.0) sec INR (<1.2) APTT (22.0-30.0) sec D-Dimer (<0.60) mg/L FEU Sodium 135 L (137-145) mmol/L Potassium 3.3 L (3.5-5.1) mmol/L Chloride 98 (98-107) mmol/L Carbon Dioxide 26 (22-30) mmol/L Anion Gap 11 mmol/L BUN 12 (7-17) mg/dL Creatinine 0.90 (0.52-1.04) mg/dL Est GFR (CKD-EPI)AfAm 80 (>60 ml/min/1.73 sqM) Est GFR (CKD-EPI)NonAf 69 (>60 ml/min/1.73 sqM) Glucose 205 H (74-99) mg/dL Plasma Lactic Acid Gael 1.3 (0.7-2.0) mmol/L Calcium 9.2 (8.4-10.2) mg/dL Magnesium 1.4 L (1.6-2.3) mg/dL Total Bilirubin 0.5 (0.2-1.3) mg/dL AST 106 H (14-36) U/L ALT 103 H (4-34) U/L Alkaline Phosphatase 88 (38-126) U/L Lactate Dehydrogenase 645 H (313-618) U/L C-Reactive Protein 37.2 H (<10.0) mg/L Total Protein 7.4 (6.3-8.2) g/dL Albumin 4.2 (3.5-5.0) g/dL Influenza Type A (PCR) (Not Detectd) Influenza Type B (PCR) (Not Detectd) RSV (PCR) (Not Detectd) SARS-CoV-2 (PCR) (Not Detectd) Disposition Clinical Impression: Pneumonia due to COVID-19 virus Disposition: ADMITTED IP TO THIS HOSP Referrals: Amado Bowers MD [Primary Care Provider] - 1-2 days Time of Disposition: 10:10
[2020-10-21 09:08] LABS: Basophils # (A) 0.1 k/uL (0-0.2); Basophils % (A) 1 %; Eosinophils # (A) 0.1 k/uL (0-0.7); Eosinophils % (A) 1 %; HCT 46.1 % (34.0-46.0); HGB 15.1 gm/dL (11.4-16.0); Lymphocytes # (A) 0.6 k/uL (1.0-4.8); Lymphocytes % (A) 9 %; MCH 28.4 pg (25.0-35.0); MCHC 32.8 g/dL (31.0-37.0); MCV 86.6 fL (80.0-100.0); Monocytes # (A) 0.5 k/uL (0-1.0); Monocytes % (A) 7 %; Neutrophils # (A) 5.9 k/uL (1.3-7.7); Neutrophils % (A) 81 %; Platelet Count 212 k/uL (150-450); RBC 5.33 m/uL (3.80-5.40); RDW 15.4 % (11.5-15.5); WBC 7.2 k/uL (3.8-10.6)
[2020-10-21 09:18] LABS: Albumin 4.2 g/dL (3.5-5.0); Calcium 9.2 mg/dL (8.4-10.2); Magnesium 1.4 mg/dL (1.6-2.3); Potassium 3.3 mmol/L (3.5-5.1); Total Bilirubin 0.5 mg/dL (0.2-1.3); Total Protein 7.4 g/dL (6.3-8.2)
--- NOTE | 2020-10-21 09:20 | XR ---
EXAMINATION TYPE: XR chest 1V portable DATE OF EXAM: 10/21/2020 COMPARISON: 01/08/2016 HISTORY: Suspected Covid pneumonia, abnormal chest x-ray TECHNIQUE: Single frontal view of the chest is obtained. FINDINGS: There is persistent elevation of left hemidiaphragm. Bibasilar increased attenuation is ag ain noted. No evident pneumothorax. Cardiac mediastinal silhouette is not significant changed. Inters titium is increased. There are overlying leads. Aorta is dense. IMPRESSION: Possible basilar atelectasis versus pneumonia, difficult to exclude effusion. Consider i nterstitial edema.
[2020-10-21 09:29] LABS: C Reactive Protein 37.2 mg/L (<10.0)
[2020-10-21 09:36] LABS: Partial Thromboplastin Time 23.1 sec (22.0-30.0); Prothrombin Time 10.4 sec (9.0-12.0)
[2020-10-21 09:46] LABS: D-Dimer 0.85 mg/L FEU (<0.60)
[2020-10-21] MEDS ORDERED: HYDROmorphone 0.5 MG/0.5 ML SYRINGE IVP STA (09:53)
[2020-10-21] MEDS ORDERED: SODIUM CHLORIDE 0.9% 1,000 ML IV ONE (10:10)
[2020-10-21] MEDS ORDERED: dexAMETHasone 2 MG TAB PO STA (10:12)
[2020-10-21] MEDS ORDERED: SODIUM CHLORIDE 0.9% 1,000 ML IV STA (10:55)
[2020-10-21] MEDS ORDERED: ALBUTEROL HFA INHALER INHALATION PRN (11:43)
[2020-10-21] MEDS ORDERED: SUMAtriptan succinate 50 MG TAB PO PRN (11:43)
[2020-10-21 12:06] LABS: Glucose,Whole Blood 180 mg/dL (75-99)
[2020-10-21] MEDS: SYMBICORT 160-4.5 MCG INHALER INHALATION SCH ×2 (12:08→20:19)
[2020-10-21] MEDS ORDERED: REMDESIVIR 200 MG in SODIUM CHLORIDE 0.9% 250 ML IVPB ONE (13:00)
[2020-10-21] MEDS: clonazePAM 0.5 MG TAB PO SCH ×2 (13:18→20:26)
[2020-10-21] MEDS: OXcarbazepine 150 MG TAB PO SCH ×2 (13:19→20:28)
[2020-10-21] MEDS: lamoTRIgine 100 MG TAB PO SCH ×2 (13:19→20:27)
[2020-10-21] MEDS: LINAGLIPTIN 5 MG TABLET PO SCH (13:19)
[2020-10-21] MEDS: COLCHICINE 0.6 MG EACH PO SCH ×2 (13:19→20:27)
[2020-10-21] MEDS: LOSARTAN 50 MG TAB PO SCH (13:19)
[2020-10-21] MEDS: PREGABALIN 100 MG CAP PO SCH ×2 (13:20→20:29)
[2020-10-21] MEDS: TOPIRAMATE 25 MG TAB PO SCH ×2 (13:20→20:29)
[2020-10-21] MEDS: ENOXAPARIN 40 MG/0.4 ML SYRINGE SQ SCH (13:43)
[2020-10-21] MEDS: INSULIN ASPART (NovoLOG) 100 UNIT/ML VIAL SQ SCH ×3 (13:43→20:27)
--- NOTE | 2020-10-21 15:52 | P.CNPUL ---
History of Present Illness Consult date: 10/21/20 Requesting physician: Rhett Garcia Reason for consult: pneumonia Chief complaint: Shortness of breath and fever. History of present illness: This is a 60-year-old female with history of multiple medical problems including hypertension, type 2 diabetes, dyslipidemia, COPD, fibromyalgia, patient is also known to have history of obstructive sleep apnea, noncompliant with CPAP, patient uses mostly oxygen at night at 2 L. She is compliant with her oxygen for her presumptive obstructive sleep apnea syndrome and underlying COPD. Patient presented to the ER yesterday with 2 days history of shortness of breath, fever as high as 103, nonproductive cough, but she had no other symptoms, patient has chronic headaches, denies any loss of sensation of taste or smell. Denies any nausea vomiting abdominal pain melena or hematemesis. Patient denies exposure to Mayer virus, however she lives with her daughter was supposedly healthy at home. At any rate patient had a chest x-ray upon presentation to the ER that showed bibasilar infiltrates, the infiltrates were noted to be peripheral, and she had a PCR for covid 19 which came back positive. Patient was placed on 6 L nasal cannula, and her O2 saturations are 93%, she was later transitioned to 5 L and her O2 saturation remained at 95%. C onsidering her Covid 19 pneumonia, this consult was initiated. We saw the patient on consultation, recommended that we start the patient on remdesivir, will also recommended starting the patient on the Covid 19 cocktail, and also started colchicine at 0.6 mg by mouth twice a day. Upon presentation the patient had a temp of 102.4, and her temp this morning is 98.9. Patient had a relatively normal CBC. Normal platelets. She had lymphopenia. And she had a relatively normal electrolytes. Inflammatory markers including LDH and C- reactive protein with 645 and 37.2 respectively. Review of Systems Constitutional: Fever chills no weight loss. HEENT: Negative. Patient does have chronic headaches. Pulmonary: As noted in HPI. Cardiac: Negative. GI: Negative. Genitourinary: Negative. Musculoskeletal: Aches and pains Skin: Negative. Hematologic: No clotting bleeding or bruising. Psychiatric: Negative. Neurologic: Negative. Endocrine history of diabetes. Past Medical History Past Medical History: Asthma, COPD, Diabetes Mellitus, Fibromyalgia, GERD/Reflux, Hyperlipidemia, Hypertension, Osteoarthritis (OA), Pneumonia, Resp iratory Disorder, Sleep Apnea/CPAP/BIPAP Additional Past Medical History / Comment(s): Pt tested covid + 10/21/20 [facility]. Other hx: Chronic respiratory failure/O2 at 3L/NC at HS but has been wearing more often lately, bronchitis, pulse ox works best on her earlobe, NIDDM type II, neuropathy bilateral feet, CHI many years ago and migraines since, KIRA-does not wear cpap, CKD-monitoring labs, elevated liver function labs being monitored, vertigo, arthritis in multiple joints, post op pulmonary edema with hernia repair, benign colon polyps, frequent night time urination, UTIs. History of Any Multi-Drug Resistant Organisms: None Reported Past Surgical History: Breast Surgery, Hernia Repair, Joint Replacement, Orthopedic Surgery, Tonsillectomy Additional Past Surgical History / Comment(s): "hole in heart repaired", bilateral knee arthroscopies, total R knee, total R hip, L foot bunionectomy, l aparascopies, R ovarian cyst removed, colonoscopies/polypectomies, bilateral eye surgery for strabismus, umbilical hernia repair, surgery for deviated septum. Past Anesthesia/Blood Transfusion Reactions: No Reported Reaction Additional Past Anesthesia/Blood Transfusion Reaction / Comment(s): PT STATES THAT PULSE OX DOES NOT WORK ON FINGER-NEEDS TO BE PUT ON EAR FOR CORRECT READING Smoking Status: Former smoker - Past Family History Sister(s) Family Medical History: Cancer Father Family Medical History: Congestive Heart Failure (CHF) Additional Family Medical History / Comment(s): Father of CHF. Mother Family Medical History: Cancer, Seizure Disorder Additional Family Medical History / Comment(s): Mother from gallbladder cancer. Medications and Allergies Home Medications Medication Instructions Recorded Confirmed Type Atorvastatin [Lipitor] 20 mg PO DAILY tab 04/30/15 10/21/20 Rx Losartan [Cozaar] 50 mg PO DAILY 08/13/15 10/21/20 History Pregabalin [Lyrica] 100 mg PO BID 01/07/16 10/21/20 History Fluticasone/Salmeterol [Advair Hfa 2 puff INHALATION RT-BID 11/18/16 10/21/20 History 115-21 Mcg Inhaler] Meclizine [Antivert] 25 mg PO Q8H PRN 11/18/16 10/21/20 History OXcarbazepine [Trileptal] 150 mg PO BID 11/18/16 10/21/20 History Potassium Chloride [Klor-Con 10] 10 meq PO TID 11/18/16 10/21/20 History lamoTRIgine [LaMICtal] 150 mg PO BID 11/18/16 10/21/20 History ARIPiprazole [Abilify] 10 mg PO HS 10/21/20 10/21/20 History ARIPiprazole [Abilify] 20 mg PO DAILY 10/21/20 10/21/20 History Albuterol Sulfate [Accuneb] 0.63 mg INHALATION RT-TID PRN 10/21/20 10/21/20 History Albuterol Sulfate [Ventolin HFA] 2 puff INHALATION RT-QID PRN 10/21/20 10/21/20 History Chlorthalidone 50 mg PO DAILY 10/21/20 10/21/20 History SUMAtriptan SUCCINATE [Imitrex] 100 mg PO BID PRN 10/21/20 10/21/20 History Topiramate [Topamax] 50 mg PO BID 10/21/20 10/21/20 History clonazePAM [KlonoPIN] 0.5 mg PO BID 10/21/20 10/21/20 History dexAMETHasone [Dexamethasone] 2 mg PO Q8H PRN 10/21/20 10/21/20 History oxyCODONE-APAP 10-325MG [Percocet 1 tab PO Q6H PRN 10/21/20 10/21/20 History 10-325 mg] sitaGLIPtin [Januvia] 50 mg PO DAILY 10/21/20 10/21/20 History Allergies Allergy/AdvReac Type Severity Reaction Status Date / Time ibuprofen [From Motrin] AdvReac Vomiting Verified 10/21/20 10:20 Physical Exam Vitals: Vital Signs Temp Pulse Pulse Resp BP BP Pulse Ox 10/21/20 14:00 98.9 F 80 19 83/48 95 10/21/20 11:25 101 F H 96 24 97/58 93 L 10/21/20 11:05 101 F H 95 24 79/49 93 L 10/21/20 11:00 101 F H 96 24 97/58 93 L 10/21/20 09:49 102.4 F H 10/21/20 09:40 101 H 25 H 113/64 90 L 10/21/20 09:11 93 L 10/21/20 09:05 108 H 26 H 128/98 91 L 10/21/20 08:22 103 F H 114 H 22 122/62 87 L Intake and Output 10/21/20 10/21/20 10/21/20 06:59 14:59 22:59 Other: Weight 84.822 kg Physical Exam: Revealed 60-year-old female, obese, on 6 L nasal cannula, in no distress. Head: Atraumatic, normocephalic. HEENT:[Neck is supple.] [No neck masses.] [No thyromegaly.] [No JVD.] Chest: [Symmetrical chest expansion, crackles at the bases.] Cardiac Exam: [Normal S1 and S2, no S3 gallop, no murmur.] Abdomen: [These, Soft, nontender, no megaly, no rebound, no guarding, normal bowel sounds.] Extremities: [No clubbing, no edema, no cyanosis.] Neurological Exam: [No focal neurologic deficit.] Alert and oriented 3. Psychiatric: Normal mood, affect and normal mental status examination. Skin: No rashes. Musculoskeletal: No deformities noted limitation range of motion. Results - Laboratory Findings CBC and BMP: 10/21/20 08:49 10/21/20 08:49 PT/INR, D-dimer PT 10.4 sec (9.0-12.0) 10/21/20 08:49 INR 1.0 (<1.2) 10/21/20 08:49 D-Dimer 0.85 mg/L FEU (<0.60) H 10/21/20 08:49 Abnormal lab findings: Abnormal Labs 10/21/20 10/21/20 10/21/20 08:40 08:49 08:49 Hct 46.1 H Lymphocytes # 0.6 L D-Dimer 0.85 H Sodium Potassium Glucose POC Glucose (mg/dL) Magnesium AST ALT Lactate Dehydrogenase C-Reactive Protein SARS-CoV-2 (PCR) Detected A 10/21/20 10/21/20 08:49 12:04 Hct Lymphocytes # D-Dimer Sodium 135 L Potassium 3.3 L Glucose 205 H POC Glucose (mg/dL) 180 H Magnesium 1.4 L AST 106 H ALT 103 H Lactate Dehydrogenase 645 H C-Reactive Protein 37.2 H SARS-CoV-2 (PCR) - Diagnostic Findings Chest x-ray: image reviewed (As noted in HPI.) Assessment and Plan Assessment: Impression: Acute on chronic hypoxic respiratory failure secondary to acute covid 19 pneumonitis. History of chronic obstructive pulmonary disease Elevated transaminases secondary to Covid 19 infection. Type 2 diabetes. History of fibromyalgia. History of obstructive sleep apnea syndrome. Dyslipidemia. History of degenerative joint disease. History of bipolar disorder. Recommendation: Continue present supportive care measures. Continue Covid 19 cocktail. Continue oxygen and titrate accordingly. Continue colchicine. Started patient on remdesivir Continue Lovenox. Resume home meds. Continue bronchodilators. We will continue to follow. Time with Patient: Greater than 30
[2020-10-21 16:31] LABS: Ferritin 654.9 ng/mL (10.0-291.0)
[2020-10-21] MEDS ORDERED: SYMBICORT 160-4.5 MCG INHALER INHALATION SCH (20:00)
[2020-10-21 20:09] LABS: Glucose,Whole Blood 370 mg/dL (75-99)
[2020-10-21] MEDS: ARIPiprazole 10 MG TAB PO SCH (20:26)
--- NOTE | 2020-10-21 22:48 | P.HPIM ---
History of Present Illness H&P Date: 10/21/20 Chief Complaint: Short of breath History of presenting complaint: This is a 60-year-old patient who follows with Yajaira Barber. Chronic stable medical conditions include diabetes, fibromyalgia, GERD, hypertension, hyperlipidemia, osteoarthritis, obstructive sleep apnea. She is on 3 L of nasal cannula home. Night has been getting it more often lately. Diabetic peripheral neuropathy, obstructive sleep apnea does not use CPAP, chronic kidney disease, arthritis in multiple joints, bipolar schizoaffective disorder. Patient presents of 1 week of increasing shortness of breath. Cough. Slight phlegm. Has had fever for 2 days. Decrease appetite some headaches no loss of taste or smell. No diarrhea. Body aches all over. Patient tested for COVID 19 in the ER. Still somewhat tired rundown. Review of systems: GEN.: Fever tired EYES: None HEENT: None NECK: None RESPIRATORY: As above] CARDIOVASCULAR: None GASTROINTESTINAL: None GENITOURINARY: None MUSCULOSKELETAL: [Joint pains LYMPHATICS: None HEMATOLOGICAL: None PSYCHIATRY: None NEUROLOGICAL: None Past medical history to include: COPD, diabetes, fibromyalgia, GERD, hyperlipidemia, hypertension, obstructive sleep apnea does not use CPAP, home oxygen 3 L normal. Night, diabetic peripheral neuropathy, chronic kidney disease, bipolar depression, schizoaffective disorder. Social history: Lives with her daughter. Disabled. Home oxygen. Smoked from 9065 through 2009. In the past used several street drugs but not so since 1989. Physical examination: VITAL SIGNS: 103, 114, 22, 122 x 62, 87% room air-upon presentation GENERAL: BMI 35.3, propped up in bed, short of breath wheezing tired. EYES: Pupils equal. Conjunctiva normal. HEENT: External appearance of nose and ears normal, oral cavity grossly normal. NECK: JVD not raised; masses not palpable. HEART: First and second heart sounds are normal; no edema. LUNGS: Respiratory rate increased, diminished breath sounds prolonged expiration and wheezing. ABDOMEN: Soft, nontender, liver spleen not palpable, no masses palpable. PSYCH: Alert and oriented x3; mood and affect a bit anxiousl. MUSCULAR skeletal: Evidence of OA NEUROLOGICAL: Cranial nerves grossly intact; no facial asymmetry, power and sensation grossly intact. LYMPHATICS: No lymph nodes palpable in the axilla and neck INVESTIGATIONS, reviewed in the clinical context: White count 7.2 hemoglobin 15.1 decreased lymphocytes d-dimer 0.85 potassium 3.3 creatinine 0.90 glucose 205 EST 106 ALT 103 CRP 37.2 procalcitonin 0.27 Influenza type A, type B both not detected. RSV P/Cr-not detected. Coronavirus [PCR]-detected EKG tracing personally reviewed by me-normal sinus rhythm some slight ST segment changes Chest x-ray film personally reviewed by me-bilateral basilar infiltrates Assessment: -Bilateral COVID 19 pneumonia causing sepsis. Cannot rule out gram-negative bacterial component. Also, with antibiotics. -Acute COPD exacerbation in an ex-smoker -Diabetes mellitus type 2 -Chronic fibromyalgia -GERD -Essential hypertension -Hyperlipidemia -Obstructive sleep apnea does not use CPAP -Diabetic peripheral neuropathy -Primary osteoarthritis of multiple joints Plan: Patient be put on Ventolin bronchodilators every 4 hours. Home medications resumed. Dexamethasone subcu Lovenox. IV fluids. Pulmonary consulted. Started the patient on Remdesivir. Add supplemental vitamin C vitamin D and zinc. Care was discussed with the patient and questions answered. Past Medical History Past Medical History: Asthma, COPD, Diabetes Mellitus, Fibromyalgia, GERD/Reflux, Hyperlipidemia, Hypertension, Osteoarthritis (OA), Pneumonia, Respiratory Disorder, Sleep Apnea/CPAP/BIPAP Additional Past Medical History / Comment(s): Pt tested covid + 10/21/20 [facility]. Other hx: Chronic respiratory failure/O2 at 3L/NC at HS but has been wearing more often lately, bronchitis, pulse ox works best on her earlobe, NIDDM type II, neuropathy bilateral feet, CHI many years ago and migraines since, KIRA-does not wear cpap, CKD-monitoring labs, elevated liver function labs being monitored, vertigo, arthritis in multiple joints, post op pulmonary edema with hernia repair, benign colon polyps, frequent night time urination, UTIs. History of Any Multi-Drug Resistant Organisms: None Reported Past Surgical History: Breast Surgery, Hernia Repair, Joint Replacement, Orthopedic Surgery, Tonsillectomy Additional Past Surgical History / Comment(s): "hole in heart repaired", bilateral knee arthroscopies, total R knee, total R hip, L foot bunionectomy, laparascopies, R ovarian cyst removed, colonoscopies/polypectomies, bilateral eye surgery for strabismus, umbilical hernia repair, surgery for deviated septum. Past Anesthesia/Blood Transfusion Reactions: No Reported Reaction Additional Past Anesthesia/Blood Transfusion Reaction / Comment(s): PT STATES THAT PULSE OX DOES NOT WORK ON FINGER-NEEDS TO BE PUT ON EAR FOR CORRECT READING Smoking Status: Former smoker - Past Family History Sister(s) Family Medical History: Cancer Father Family Medical History: Congestive Heart Failure (CHF) Additional Family Medical History / Comment(s): Father of CHF. Mother Family Medical History: Cancer, Seizure Disorder Additional Family Medical History / Comment(s): Mother from gallbladder cancer. Medications and Allergies Home Medications Medication Instructions Recorded Confirmed Type Atorvastatin [Lipitor] 20 mg PO DAILY tab 04/30/15 10/21/20 Rx Losartan [Cozaar] 50 mg PO DAILY 08/13/15 10/21/20 History Pregabalin [Lyrica] 100 mg PO BID 01/07/16 10/21/20 History Fluticasone/Salmeterol [Advair Hfa 2 puff INHALATION RT-BID 11/18/16 10/21/20 History 115-21 Mcg Inhaler] Meclizine [Antivert] 25 mg PO Q8H PRN 11/18/16 10/21/20 History OXcarbazepine [Trileptal] 150 mg PO BID 11/18/16 10/21/20 History Potassium Chloride [Klor-Con 10] 10 meq PO TID 11/18/16 10/21/20 History lamoTRIgine [LaMICtal] 150 mg PO BID 11/18/16 10/21/20 History ARIPiprazole [Abilify] 10 mg PO HS 10/21/20 10/21/20 History ARIPiprazole [Abilify] 20 mg PO DAILY 10/21/20 10/21/20 History Albuterol Sulfate [Accuneb] 0.63 mg INHALATION RT-TID PRN 10/21/20 10/21/20 History Albuterol Sulfate [Ventolin HFA] 2 puff INHALATION RT-QID PRN 10/21/20 10/21/20 History Chlorthalidone 50 mg PO DAILY 10/21/20 10/21/20 History SUMAtriptan SUCCINATE [Imitrex] 100 mg PO BID PRN 10/21/20 10/21/20 History Topiramate [Topamax] 50 mg PO BID 10/21/20 10/21/20 History clonazePAM [KlonoPIN] 0.5 mg PO BID 10/21/20 10/21/20 History dexAMETHasone [Dexamethasone] 2 mg PO Q8H PRN 10/21/20 10/21/20 History oxyCODONE-APAP 10-325MG [Percocet 1 tab PO Q6H PRN 10/21/20 10/21/20 History 10-325 mg] sitaGLIPtin [Januvia] 50 mg PO DAILY 10/21/20 10/21/20 History Allergies Allergy/AdvReac Type Severity Reaction Status Date / Time ibuprofen [From Motrin] AdvReac Vomiting Verified 10/21/20 10:20 Physical Exam Vitals: Vital Signs Temp Pulse Resp BP Pulse Ox 10/21/20 11:25 101 F H 96 24 97/58 93 L 10/21/20 11:05 101 F H 95 24 79/49 93 L 10/21/20 11:00 101 F H 96 24 97/58 93 L 10/21/20 09:49 102.4 F H 10/21/20 09:40 101 H 25 H 113/64 90 L 10/21/20 09:11 93 L 10/21/20 09:05 108 H 26 H 128/98 91 L 10/21/20 08:22 103 F H 114 H 22 122/62 87 L Intake and Output 10/20/20 10/21/20 10/21/20 22:59 06:59 14:59 Other: Weight 84.822 kg Results CBC & Chem 7: 10/21/20 08:49 10/21/20 08:49 Labs: Abnormal Lab Results - Last 24 Hours (Table) 10/21/20 10/21/20 10/21/20 Range/Units 08:40 08:49 08:49 Hct 46.1 H (34.0-46.0) % Lymphocytes # 0.6 L (1.0-4.8) k/uL D-Dimer 0.85 H (<0.60) mg/L FEU Sodium (137-145) mmol/L Potassium (3.5-5.1) mmol/L Glucose (74-99) mg/dL Magnesium (1.6-2.3) mg/dL AST (14-36) U/L ALT (4-34) U/L Lactate Dehydrogenase (313-618) U/L C-Reactive Protein (<10.0) mg/L SARS-CoV-2 (PCR) Detected A (Not Detectd) 10/21/20 Range/Units 08:49 Hct (34.0-46.0) % Lymphocytes # (1.0-4.8) k/uL D-Dimer (<0.60) mg/L FEU Sodium 135 L (137-145) mmol/L Potassium 3.3 L (3.5-5.1) mmol/L Glucose 205 H (74-99) mg/dL Magnesium 1.4 L (1.6-2.3) mg/dL AST 106 H (14-36) U/L ALT 103 H (4-34) U/L Lactate Dehydrogenase 645 H (313-618) U/L C-Reactive Protein 37.2 H (<10.0) mg/L SARS-CoV-2 (PCR) (Not Detectd) Thrombosis Risk Factor Assmnt - Choose All That Apply Any of the Below Risk Factors Present?: Yes Each Factor Represents 1 point: Abnormal pulmonary function (COPD), Obesity (BMI >25), Serious lung disease incl. pneumonia (< 1month) Other Risk Factors: Yes Each Risk Factor Represents 2 Points: Age 61-74 years Other congenital or acquired thrombophilia - If yes, enter type in comment: No Thrombosis Risk Factor Assessment Total Risk Factor Score: 5 Thrombosis Risk Factor Assessment Level: High Risk
[2020-10-21] MEDS: ZINC SULFATE 220 MG CAP PO SCH (23:03)
[2020-10-21] MEDS: ASCORBIC ACID 500 MG TAB PO SCH (23:03)
[2020-10-21] MEDS: CHOLECALCIFEROL 25 MCG (1000 IU) TABLET PO SCH (23:03)
[2020-10-21] MEDS: oxyCODONE-APAP 10-325MG 1 EACH TAB PO PRN (23:03)
[2020-10-22] MEDS: ALBUTEROL HFA INHALER INHALATION SCH ×6 (00:51→19:24)
[2020-10-22] MEDS: oxyCODONE-APAP 10-325MG 1 EACH TAB PO PRN ×3 (04:44→22:49)
[2020-10-22 07:10] LABS: Glucose,Whole Blood 157 mg/dL (75-99)
[2020-10-22] MEDS: LOSARTAN 50 MG TAB PO SCH (08:02)
[2020-10-22] MEDS: SYMBICORT 160-4.5 MCG INHALER INHALATION SCH ×2 (08:17→19:24)
[2020-10-22] MEDS: lamoTRIgine 100 MG TAB PO SCH ×2 (08:42→20:46)
[2020-10-22] MEDS: ZINC SULFATE 220 MG CAP PO SCH (08:42)
[2020-10-22] MEDS: LINAGLIPTIN 5 MG TABLET PO SCH (08:43)
[2020-10-22] MEDS: dexAMETHasone 2 MG TAB PO SCH (08:43)
[2020-10-22] MEDS: PREGABALIN 100 MG CAP PO SCH ×2 (08:43→20:46)
[2020-10-22] MEDS: CHOLECALCIFEROL 25 MCG (1000 IU) TABLET PO SCH (08:43)
[2020-10-22] MEDS: ATORVASTATIN 20 MG TAB PO SCH (08:43)
[2020-10-22] MEDS: COLCHICINE 0.6 MG EACH PO SCH ×2 (08:43→21:13)
[2020-10-22] MEDS: ASCORBIC ACID 500 MG TAB PO SCH (08:43)
[2020-10-22] MEDS: TOPIRAMATE 25 MG TAB PO SCH ×2 (08:44→21:13)
[2020-10-22] MEDS: INSULIN ASPART (NovoLOG) 100 UNIT/ML VIAL SQ SCH ×4 (08:44→20:47)
[2020-10-22] MEDS: clonazePAM 0.5 MG TAB PO SCH ×2 (08:44→20:47)
[2020-10-22] MEDS: OXcarbazepine 150 MG TAB PO SCH ×2 (08:44→21:13)
[2020-10-22] MEDS: ENOXAPARIN 40 MG/0.4 ML SYRINGE SQ SCH (08:45)
[2020-10-22 11:44] LABS: Glucose,Whole Blood 170 mg/dL (75-99)
[2020-10-22] MEDS: REMDESIVIR 100 MG in SODIUM CHLORIDE 0.9% 250 ML IVPB SCH (12:44)
--- NOTE | 2020-10-22 13:08 | P.PN ---
Subjective Progress Note Date: 10/22/20 Principal diagnosis: Shortness of breath and fever This is a 60-year-old female with history of multiple medical problems including hypertension, type 2 diabetes, dyslipidemia, COPD, fibromyalgia, patient is also known to have history of obstructive sleep apnea, noncompliant with CPAP, patient uses mostly oxygen at night at 2 L. She is compliant with her oxygen for her presumptive obstructive sleep apnea syndrome and underlying COPD. Patient presented to the ER yesterday with 2 days history of shortness of breath, fever as high as 103, nonproductive cough, but she had no other symptoms, patient has chronic headaches, denies any loss of sensation of taste or smell. Denies any nausea vomiting abdominal pain melena or hematemesis. Patient denies exposure to Mayer virus, however she lives with her daughter was supposedly healthy at home. At any rate patient had a chest x-ray upon presentation to the ER that showed bibasilar infiltrates, the infiltrates were noted to be peripheral, and she had a PCR for covid 19 which came back positive. Patient was placed on 6 L nasal cannula, and her O2 saturations are 93%, she was later transitioned to 5 L and her O2 saturation remained at 95%. Considering her Covid 19 pneumonia, this consult was initiated. We saw the p atient on consultation, recommended that we start the patient on remdesivir, will also recommended starting the patient on the Covid 19 cocktail, and also started colchicine at 0.6 mg by mouth twice a day. Upon presentation the patient had a temp of 102.4, and her temp this morning is 98.9. Patient had a relatively normal CBC. Normal platelets. She had lymphopenia. And she had a relatively normal electrolytes. Inflammatory markers including LDH and C- reactive protein with 645 and 37.2 respectively. On 10/22/2020 patient seen in follow-up, she is awake and alert, she remains on 6 L of oxygen her pulse ox is 90-93%, she is breathing comfortably, although still having fever spikes, with a T-max of 101.8F this morning, today's day 2 of Remdesivir, we added colchicine, she is on oral Decadron 6 mg daily, she is on prophylactic dose of Lovenox, in addition to vitamins. Today's labs have been reviewed, showing d-dimer of 0.85, CRP is down to 4.6, associated LDH value from today, her pro-calcitonin level was 0.27, her influenza and RSV screen were negative. Objective - Vital Signs Vital signs: Vital Signs Temp 100.4 F H 10/22/20 10:00 Pulse 87 10/22/20 10:00 Resp 18 10/22/20 10:00 BP 99/59 10/22/20 10:00 Pulse Ox 90 L 10/22/20 10:00 Intake & Output 10/21/20 10/22/20 10/22/20 18:59 06:59 18:59 Weight 84.822 kg Other: Voiding Method Toilet # Voids 1 - Exam GENERAL EXAM: Alert, pleasant, 60-year-old white female, on 6 L of oxygen the pulse ox of 90-92% comfortable in no apparent distress. HEAD: Normocephalic/atraumatic. EYES: Normal reaction of pupils, equal size. Conjunctiva pink, sclera white. NOSE: Clear with pink turbinates. THROAT: No erythema or exudates. NECK: No masses, no JVD, no thyroid enlargement, no adenopathy. CHEST: No chest wall deformity. Symmetrical expansion. LUNGS: Equal air entry with no crackles, wheeze, rhonchi or dullness. CVS: Regular rate and rhythm, normal S1 and S2, no gallops, no murmurs, no rubs ABDOMEN: Soft, nontender. No hepatosplenomegaly, normal bowel sounds, no guarding or rigidity. EXTREMITIES: No clubbing, no edema, no cyanosis, 2+ pulses and upper and lower extremities. MUSCULOSKELETAL: Muscle strength and tone normal. SPINE: No scoliosis or deformity SKIN: No rashes CENTRAL NERVOUS SYSTEM: Alert and oriented -3. No focal deficits, tone is normal in all 4 extremities. PSYCHIATRIC: Alert and oriented -3. Appropriate affect. Intact judgment and insight. - Labs CBC & Chem 7: 10/21/20 08:49 10/21/20 08:49 Labs: Abnormal Lab Results - Last 24 Hours (Table) 10/21/20 10/21/20 10/21/20 Range/Units 08:49 08:49 20:08 D-Dimer (<0.60) mg/L FEU POC Glucose (mg/dL) 370 H (75-99) mg/dL Ferritin 654.9 H (10.0-291.0) ng/mL C-Reactive Protein (0.0-0.8) mg/dL Procalcitonin 0.27 H (0.02-0.09) ng/mL 10/22/20 10/22/20 10/22/20 Range/Units 05:29 05:29 07:08 D-Dimer 0.85 H (<0.60) mg/L FEU POC Glucose (mg/dL) 157 H (75-99) mg/dL Ferritin (10.0-291.0) ng/mL C-Reactive Protein 4.6 H (0.0-0.8) mg/dL Procalcitonin (0.02-0.09) ng/mL 10/22/20 Range/Units 11:42 D-Dimer (<0.60) mg/L FEU POC Glucose (mg/dL) 170 H (75-99) mg/dL Ferritin (10.0-291.0) ng/mL C-Reactive Protein (0.0-0.8) mg/dL Procalcitonin (0.02-0.09) ng/mL Microbiology - Last 24 Hours (Table) 10/21/20 08:48 Blood Culture - Preliminary Blood No Growth after 24 hours Assessment and Plan Plan: Assessment: #1. Acute on chronic hypoxic respiratory failure secondary to acute COVID 19 pneumonitis, influenza and RSV PCR were negative, started Remdesivir treatment on 10/21/2020 #2. History of COPD #3. Elevated transaminases secondary to COVID 19 infection #4. Type 2 diabetes mellitus #5. History of obstructive sleep apnea syndrome #6. Dyslipidemia #7. History of degenerative joint disease #8. History of bipolar disorder Plan: We will continue Remdesivir, today is day 2 of treatment, continue oral Decadron, continue prophylactic dose of Lovenox, continue vitamins, and Pepcid. Patient continues to be febrile, we'll send follow-up inflammatory markers and d-dimer tomorrow, continue monitoring oxygen demand, work of breathing, and fever pattern, we'll continue to follow I performed a history & physical examination of the patient and discussed their management with my nurse practitioner, Melany Stanton. I reviewed the nurse practitioner's note and agree with the documented findings and plan of care. Lung sounds are positive for diminished breath sounds. The findings and the impression was discussed with the patient. I attest to the documentation by the nurse practitioner. Time with Patient: Less than 30
--- NOTE | 2020-10-22 13:34 | CDI ---
Documentation Clarification Form Date: 10/22/2020 01:22:25 PM From: Linh Mcnulty CCS, CCDS Admit Date: 10/21/2020 10:12:00 AM Patient Name: Bobbi Chavira Visit Number: [id number] Discharge Date: ATTENTION: The Clinical Documentation Specialists (CDI) and [facility] Coding Staff appreciate your assistance in clarifying documentation. Please respond to the clarification below the line at the bottom and electronically sign. The CDI & [facility] Coding staff will review the response and follow-up if needed. Please note: Queries are made part of the Legal Health Record. If you have any questions, please contact the author of this message via ITS. Dr. Rhett Garcia: Chronic Kidney Disease is documented in the 10/21 History & Physical without further specificity. History/Risk Factors: IDDM II, Diabetic Peripheral Neuropathy, CKD nos, Hypertension, Hyperlipidemia, KIRA, OA in Multiple Joints, Fibromyalgia, GERD, COPD, Former Smoker. 10/21 History & Physical Assessment: Bilateral COVID-19 Pneumonia causing Sepsis. Clinical Indicators: 60 yo female, presented to the ED on 10/21 with low pulse ox on Home O2 2Lnc, Fever (T 103^), slight cough & more SOB. Tested positive for COVID in ED. ED Impression: Pneumonia due to COVID -19 virus. VS 10/21: T 103^, P 114^, R 22 (SOB, cough), BP 122/62, PO 87 RA Current BUN/CR/GFR 10/21: BUN (12), Cr 0.90), GFR 69. Historical GFR 01/08/2016: >60 Treatment: INH Ventolin, IV Rocephin, IV dilaudid, IV fluid 1,000 mls @ 50 mls/hr q20, po Hexadrol, IV fluid 1,000 mls @ 999 mls/hr q1H, INH Symbicort. Home Meds: Januvia, Percocet, Lamictal, Dexamethasone, Klonopin, Topamax, Imitrex, Lyrica, KlorCon, Trileptal, Antivert, Cozaar, INH Advair, Chlorthalidone, Lipitor, INH Ventolin, INH Accuneb, Abilify. Consults: Pulmonary. Nephrology is not consulted. In order to capture the severity of condition, please clarify the stage of the CKD, if known: CKD Stage 2 (GFR 60-89) CKD Stage 3a (GFR 45-59) Other, please specify Unable to determine [Template Last reviewed: May 2020] NO CKD MTDD
[2020-10-22] MEDS ORDERED: FUROSEMIDE 10 MG/ML 4 ML VIAL IV STA (14:25)
[2020-10-22] MEDS: ACETAMINOPHEN TAB 325 MG TAB PO PRN (15:11)
[2020-10-22 17:00] LABS: Glucose,Whole Blood 266 mg/dL (75-99)
[2020-10-22 20:36] LABS: Glucose,Whole Blood 283 mg/dL (75-99)
[2020-10-22] MEDS: ARIPiprazole 10 MG TAB PO SCH (21:13)
[2020-10-23] MEDS: ALBUTEROL HFA INHALER INHALATION SCH ×6 (00:25→19:51)
--- NOTE | 2020-10-23 00:31 | P.PN ---
Progress Note - Text Progress Note Date: 10/22/20 Chief Complaint: Short of breath History of presenting complaint: This is a 60-year-old patient who follows with Yajaira Barber. Chronic stable medical conditions include diabetes, fibromyalgia, GERD, hypertension, hyperlipidemia, osteoarthritis, obstructive sleep apnea. She is on 3 L of nasal cannula home. Night has been getting it more often lately. Diabetic peripheral neuropathy, obstructive sleep apnea does not use CPAP, chronic kidney disease, arthritis in multiple joints, bipolar schizoaffective disorder. Patient presents of 1 week of increasing shortness of breath. Cough. Slight phlegm. Has had fever for 2 days. Decrease appetite some headaches no loss of taste or smell. No diarrhea. Body aches all over. Patient tested for COVID 19 in the ER. Still somewhat tired rundown. Admitted with bilateral COVID 19 pneumonia causing sepsis, acute COPD exacerbation, acute hypoxic respiratory failure. Today-oxygen requirement about 12 L. Short of breath. Some cough. Fever. Tired. Review of systems: Was done for constitutional, cardiovascular, GI, pulmonary. relevant finding as above Active Medications Acetaminophen (Acetaminophen Tab 325 Mg Tab) 650 mg PO Q6HR PRN PRN Reason: Fever and/ or Pain Last Admin: 10/22/20 15:11 Dose: 650 mg Documented by: Albuterol Sulfate (Albuterol Hfa Inhaler) 4 puff INHALATION Q4H [facility] Last Admin: 10/23/20 00:25 Dose: 4 puff Documented by: Aripiprazole (Aripiprazole 10 Mg Tab) 10 mg PO HS [facility] Last Admin: 10/22/20 21:13 Dose: 10 mg Documented by: Aripiprazole (Aripiprazole 20 Mg Tab) 20 mg PO DAILY [facility] Last Admin: 10/22/20 08:44 Dose: 20 mg Documented by: Ascorbic Acid (Ascorbic Acid 500 Mg Tab) 500 mg PO DAILY [facility] Last Admin: 10/22/20 08:43 Dose: 500 mg Documented by: Atorvastatin Calcium (Atorvastatin 20 Mg Tab) 20 mg PO DAILY [facility] Last Admin: 10/22/20 08:43 Dose: 20 mg Documented by: Budesonide/Formoterol Fumarate (Symbicort 160-4.5 Mcg Inhaler) 2 puff INHALATION RT-BID [facility] Last Admin: 10/22/20 19:24 Dose: 2 puff Documented by: Cholecalciferol (Cholecalciferol 25 Mcg (1000 Iu) Tablet) 100 mcg PO DAILY [facility] Last Admin: 10/22/20 08:43 Dose: 100 mcg Documented by: Clonazepam (Clonazepam 0.5 Mg Tab) 0.5 mg PO BID [facility] Last Admin: 10/22/20 20:47 Dose: 0.5 mg Documented by: Colchicine (Colchicine 0.6 Mg Each) 0.6 mg PO BID [facility] Last Admin: 10/22/20 21:13 Dose: 0.6 mg Documented by: Dexamethasone (Dexamethasone 2 Mg Tab) 6 mg PO DAILY [facility] Last Admin: 10/22/20 08:43 Dose: 6 mg Documented by: Enoxaparin Sodium (Enoxaparin 40 Mg/0.4 Ml Syringe) 40 mg SQ DAILY [facility] Last Admin: 10/22/20 08:45 Dose: 40 mg Documented by: Remdesivir 100 mg/ Sodium (Chloride) 250 mls @ 250 mls/hr IVPB DAILY@1300 [facility] Stop: 10/25/20 13:59 Last Admin: 10/22/20 12:44 Dose: 250 mls/hr Documented by: Ceftriaxone Sodium 1 gm/ (Sodium Chloride) 50 mls @ 100 mls/hr IVPB Q24HR [facility] Last Admin: 10/22/20 08:44 Dose: 100 mls/hr Documented by: Insulin Aspart (Insulin Aspart (Novolog) 100 Unit/Ml Vial) 0 unit SQ ACHS [facility]; Protocol Last Admin: 10/22/20 20:47 Dose: 4 unit Documented by: Lamotrigine (Lamotrigine 100 Mg Tab) 150 mg PO BID [facility] Last Admin: 10/22/20 20:46 Dose: 150 mg Documented by: Linagliptin (Linagliptin 5 Mg Tablet) 5 mg PO DAILY [facility] Last Admin: 10/22/20 08:43 Dose: 5 mg Documented by: Losartan Potassium (Losartan 50 Mg Tab) 50 mg PO DAILY [facility] Last Admin: 10/22/20 08:02 Dose: Not Given Documented by: Oxcarbazepine (Oxcarbazepine 150 Mg Tab) 150 mg PO BID [facility] Last Admin: 10/22/20 21:13 Dose: 150 mg Documented by: Oxycodone/Acetaminophen (Oxycodone-Apap 10-325mg 1 Each Tab) 1 each PO Q6H PRN PRN Reason: Pain Last Admin: 10/22/20 22:49 Dose: 1 each Documented by: Pregabalin (Pregabalin 100 Mg Cap) 100 mg PO BID [facility] Last Admin: 10/22/20 20:46 Dose: 100 mg Documented by: Sumatriptan Succinate (Sumatriptan Succinate 50 Mg Tab) 100 mg PO BID PRN PRN Reason: Migraine Headache Topiramate (Topiramate 25 Mg Tab) 50 mg PO BID [facility] Last Admin: 10/22/20 21:13 Dose: 50 mg Documented by: Zinc Sulfate (Zinc Sulfate 220 Mg Cap) 220 mg PO DAILY [facility] Last Admin: 10/22/20 08:42 Dose: 220 mg Documented by: Past medical history to include: COPD, diabetes, fibromyalgia, GERD, hyperlipidemia, hypertension, obstructive sleep apnea does not use CPAP, home oxygen 3 L normal. Night, diabetic peripheral neuropathy, chronic kidney disease, bipolar depression, schizoaffec tive disorder. Social history: Lives with her daughter. Disabled. Home oxygen. Smoked from 9065 through 2009. In the past used several street drugs but not so since 1989. Physical examination: VITAL SIGNS: 102.4, 92, 18, 111/60, 91% on 2 L GENERAL: BMI 35.3, sitting up, short of breath EYES: Pupils equal. Conjunctiva normal. HEENT: External appearance of nose and ears normal, NEUROLOGICAL: Cranial nerves grossly intact; no facial asymmetry, power and sensation grossly intact. Rest of the exam as per pulmonary, nursing INVESTIGATIONS, reviewed in the clinical context: October 14: D-dimer 0.85, CRP 4.6 White count 7.2 hemoglobin 15.1 decreased lymphocytes d-dimer 0.85 potassium 3.3 creatinine 0.90 glucose 205 EST 106 ALT 103 CRP 37.2 procalcitonin 0.27 Influenza type A, type B both not detected. RSV P/Cr-not detected. Coronavirus [PCR]-detected EKG tracing personally reviewed by me-normal sinus rhythm some slight ST segment changes Chest x-ray film personally reviewed by me-bilateral basilar infiltrates Assessment: -Bilateral COVID 19 pneumonia causing sepsis. Cannot rule out gram-negative bacterial component.-Slow to respond -Acute COPD exacerbation in an [id number] to respond -Acute hypoxic respiratory failure worsening, currently at 12 L of nasal cannula -Diabetes mellitus type 2, uncontrolled with hyperglycemia -Chronic fibromyalgia -GERD -Essential hypertension -Hyperlipidemia -Obstructive sleep apnea does not use CPAP -Diabetic peripheral neuropathy -Primary osteoarthritis of multiple joints Plan: Continue ventilatory inhaler, Symbicort, IV ceftriaxone, Remdesivir, Decadron, other medications to continue.. Oxygen support.
[2020-10-23 06:41] LABS: Glucose,Whole Blood 154 mg/dL (75-99)
[2020-10-23] MEDS: lamoTRIgine 100 MG TAB PO SCH ×2 (08:00→20:51)
[2020-10-23] MEDS: LOSARTAN 50 MG TAB PO SCH (08:00)
[2020-10-23] MEDS: oxyCODONE-APAP 10-325MG 1 EACH TAB PO PRN ×3 (08:00→22:26)
[2020-10-23] MEDS: ASCORBIC ACID 500 MG TAB PO SCH (08:01)
[2020-10-23] MEDS: LINAGLIPTIN 5 MG TABLET PO SCH (08:01)
[2020-10-23] MEDS: ATORVASTATIN 20 MG TAB PO SCH (08:01)
[2020-10-23] MEDS: dexAMETHasone 2 MG TAB PO SCH (08:02)
[2020-10-23] MEDS: CHOLECALCIFEROL 25 MCG (1000 IU) TABLET PO SCH (08:02)
[2020-10-23] MEDS: ZINC SULFATE 220 MG CAP PO SCH (08:02)
[2020-10-23] MEDS: PREGABALIN 100 MG CAP PO SCH ×2 (08:02→20:52)
[2020-10-23] MEDS: clonazePAM 0.5 MG TAB PO SCH ×2 (08:02→20:50)
[2020-10-23] MEDS: ENOXAPARIN 40 MG/0.4 ML SYRINGE SQ SCH ×2 (08:03→20:53)
[2020-10-23] MEDS: INSULIN ASPART (NovoLOG) 100 UNIT/ML VIAL SQ SCH ×4 (08:03→20:53)
[2020-10-23] MEDS: OXcarbazepine 150 MG TAB PO SCH ×2 (08:04→20:52)
[2020-10-23] MEDS: TOPIRAMATE 25 MG TAB PO SCH ×2 (08:04→20:52)
[2020-10-23] MEDS: COLCHICINE 0.6 MG EACH PO SCH ×2 (08:04→20:51)
[2020-10-23] MEDS: SYMBICORT 160-4.5 MCG INHALER INHALATION SCH ×2 (08:16→19:51)
--- NOTE | 2020-10-23 08:19 | XR ---
EXAMINATION TYPE: XR chest 1V portable DATE OF EXAM: 10/23/2020 HISTORY: Shortness of breath. COMPARISON: Is otherwise identified. 10/21/2020 TECHNIQUE: Single view of the chest is submitted. FINDINGS: Demonstrated are scattered senescent parenchymal change. Patchy perihilar and basilar infiltrates persist without significant change. The heart is stable. Hilar and mediastinal structures are within normal limits. Degenerative changes are seen of the dorsal spine. IMPRESSION: 1. Patchy perihilar and basilar infiltrates persist without significant change.
[2020-10-23 09:38] LABS: C Reactive Protein 4.1 mg/dL (0.0-0.8)
[2020-10-23 11:34] LABS: Glucose,Whole Blood 172 mg/dL (75-99)
[2020-10-23] MEDS: REMDESIVIR 100 MG in SODIUM CHLORIDE 0.9% 250 ML IVPB SCH (12:12)
--- NOTE | 2020-10-23 12:53 | P.PN ---
Subjective Progress Note Date: 10/23/20 Principal diagnosis: Shortness of breath and fever This is a 60-year-old female with history of multiple medical problems including hypertension, type 2 diabetes, dyslipidemia, COPD, fibromyalgia, patient is also known to have history of obstructive sleep apnea, noncompliant with CPAP, patient uses mostly oxygen at night at 2 L. She is compliant with her oxygen for her presumptive obstructive sleep apnea syndrome and underlying COPD. Patient presented to the ER yesterday with 2 days history of shortness of breath, fever as high as 103, nonproductive cough, but she had no other symptoms, patient has chronic headaches, denies any loss of sensation of taste or smell. Denies any nausea vomiting abdominal pain melena or hematemesis. Patient denies exposure to Mayer virus, however she lives with her daughter was supposedly healthy at home. At any rate patient had a chest x-ray upon presentation to the ER that showed bibasilar infiltrates, the infiltrates were noted to be peripheral, and she had a PCR for covid 19 which came back positive. Patient was placed on 6 L nasal cannula, and her O2 saturations are 93%, she was later transitioned to 5 L and her O2 saturation remained at 95%. Considering her Covid 19 pneumonia, this consult was initiated. We saw the p atient on consultation, recommended that we start the patient on remdesivir, will also recommended starting the patient on the Covid 19 cocktail, and also started colchicine at 0.6 mg by mouth twice a day. Upon presentation the patient had a temp of 102.4, and her temp this morning is 98.9. Patient had a relatively normal CBC. Normal platelets. She had lymphopenia. And she had a relatively normal electrolytes. Inflammatory markers including LDH and C- reactive protein with 645 and 37.2 respectively. On 10/22/2020 patient seen in follow-up, she is awake and alert, she remains on 6 L of oxygen her pulse ox is 90-93%, she is breathing comfortably, although still having fever spikes, with a T-max of 101.8F this morning, today's day 2 of Remdesivir, we added colchicine, she is on oral Decadron 6 mg daily, she is on prophylactic dose of Lovenox, in addition to vitamins. Today's labs have been reviewed, showing d-dimer of 0.85, CRP is down to 4.6, associated LDH value from today, her pro-calcitonin level was 0.27, her influenza and RSV screen were negative. On 10/23/2020 patient seen in follow-up on medical floor, she is awake and alert, oriented 3, she is wheezy, has a congested cough, she is currently on 2 L of oxygen her pulse ox is between 87-93%, she still having some low-grade fevers, today's chest x-ray showing patchy perihilar and basilar infiltrates without significant change. Patient remains on Remdesivir, today is day 3 of treatment, in addition to Decadron, prophylactic doses of Lovenox in her d-dimer remains low at 0.62, in addition to vitamins and colchicine. Her inflammatory markers are coming down, her procalcitonin level was not elevated to 0.27 Objective - Vital Signs Vital signs: Vital Signs Temp 100.6 F H 10/23/20 09:04 Pulse 88 10/23/20 09:04 Resp 18 10/23/20 09:04 BP 100/58 10/23/20 09:04 Pulse Ox 87 L 10/23/20 09:04 Intake & Output 10/22/20 10/23/20 10/23/20 18:59 06:59 18:59 Other: Voiding Method Toilet Toilet # Voids 6 - Exam GENERAL EXAM: Alert, pleasant, 60-year-old white female, on 15 L of oxygen the pulse ox of 87-93% comfortable in no apparent distress. HEAD: Normocephalic/atraumatic. EYES: Normal reaction of pupils, equal size. Conjunctiva pink, sclera white. NOSE: Clear with pink turbinates. THROAT: No erythema or exudates. NECK: No masses, no JVD, no thyroid enlargement, no adenopathy. CHEST: No chest wall deformity. Symmetrical expansion. LUNGS: Equal air entry with no crackles, wheeze, rhonchi or dullness. CVS: Regular rate and rhythm, normal S1 and S2, no gallops, no murmurs, no rubs ABDOMEN: Soft, nontender. No hepatosplenomegaly, normal bowel sounds, no guar ding or rigidity. EXTREMITIES: No clubbing, no edema, no cyanosis, 2+ pulses and upper and lower extremities. MUSCULOSKELETAL: Muscle strength and tone normal. SPINE: No scoliosis or deformity SKIN: No rashes CENTRAL NERVOUS SYSTEM: Alert and oriented -3. No focal deficits, tone is normal in all 4 extremities. PSYCHIATRIC: Alert and oriented -3. Appropriate affect. Intact judgment and insight. - Labs CBC & Chem 7: 10/21/20 08:49 10/21/20 08:49 Labs: Abnormal Lab Results - Last 24 Hours (Table) 10/22/20 10/22/20 10/23/20 Range/Units 16:58 20:34 05:53 D-Dimer 0.62 H (<0.60) mg/L FEU POC Glucose (mg/dL) 266 H 283 H (75-99) mg/dL Lactate Dehydrogenase (120-246) U/L C-Reactive Protein (0.0-0.8) mg/dL 10/23/20 10/23/20 10/23/20 Range/Units 05:53 06:39 11:32 D-Dimer (<0.60) mg/L FEU POC Glucose (mg/dL) 154 H 172 H (75-99) mg/dL Lactate Dehydrogenase 252 H (120-246) U/L C-Reactive Protein 4.1 H (0.0-0.8) mg/dL Microbiology - Last 24 Hours (Table) 10/21/20 08:48 Blood Culture - Preliminary Blood No Growth after 48 hours Assessment and Plan Plan: Assessment: #1. Acute on chronic hypoxic respiratory failure secondary to acute COVID 19 pneumonitis, influenza and RSV PCR were negative, started Remdesivir treatment on 10/21/2020 #2. History of COPD #3. Elevated transaminases secondary to COVID 19 infection #4. Type 2 diabetes mellitus #5. History of obstructive sleep apnea syndrome #6. Dyslipidemia #7. History of degenerative joint disease #8. History of bipolar disorder Plan: Continue current medical treatment, today is day 3 of Remdesivir, continue current dose Decadron, colchicine, current dose Lovenox, and vitamins. Inflammatory markers are improving, her febrile pattern has improved although patient is still having low-grade fevers, we'll continue to follow, follow-up labs tomorrow including d-dimer, inflammatory markers, LFTs I performed a history & physical examination of the patient and discussed their management with my nurse practitioner, Melany Stanton. I reviewed the nurse practitioner's note and agree with the documented findings and plan of care. Lung sounds are positive for diminished breath sounds. The findings and the impression was discussed with the patient. I attest to the documentation by the nurse practitioner. Time with Patient: Less than 30
[2020-10-23] MEDS ORDERED: MECLIZINE 25 MG TAB PO PRN (14:37)
[2020-10-23] MEDS: POTASSIUM CHLORIDE ER 10 MEQ TAB.ER.PRT PO SCH ×2 (15:41→20:52)
--- NOTE | 2020-10-23 16:26 | CT ---
EXAMINATION TYPE: CT angio chest DATE OF EXAM: 10/23/2020 4:04 PM COMPARISON: CT Chest dated 11/20/2012. HISTORY: Cough, covid +. CT DLP: 426.7 mGycm Automated exposure control for dose reduction was used. CONTRAST: CTA scan of the thorax is performed with IV Contrast, patient injected with 77ml mL of Isovue 370, pu lmonary embolism protocol. MIP images are created and reviewed. FINDINGS: LUNGS: Moderate underlying emphysematous change redemonstrated. There are areas of increased intralob ular septal thickening with groundglass opacities greatest in the periphery of the mid to lower lungs . Additional scattered areas of mild to moderate linear atelectasis. Tiny left pleural effusion infer iorly. Elevated left hemidiaphragm. MEDIASTINUM: There is suboptimal bolus with heterogeneity, there is very little contrast in the right and left heart systems, no obvious acute central or peripheral pulmonary embolism. Satisfactory enha ncement of the aorta without aneurysm or dissection. Internal septal closure device. Heart size upper limits of normal. Coronary calcification is present. There are new enlarged bilateral hilar lymph n odes . No pericardial effusion is seen. OTHER: There is 3.2 cm thin-walled cyst in the anterior superior spleen. Visualized liver is hypoden se consistent with diffuse fatty infiltration. Underlying significant scoliosis with moderate multile karen spurring in the spine. Possible right breast lesion axial image 60, nonemergent follow-up advised with probable mammogram and ultrasound. IMPRESSION: Suboptimal study without acute pulmonary embolism identified. Background of moderate und erlying emphysematous change redemonstrated. Developing multifocal bilateral lower lung edema and/or infiltrates consistent with known covid 19 infection with reactive thoracic adenopathy. Attention to right breast as detailed above.
--- NOTE | 2020-10-23 16:39 | PN ---
PROGRESS NOTE DATE OF SERVICE: 10/23/2020 This 60-year-old woman who was being followed by Dr. Bowers in the outpatient setting was admitted with shortness of breath and bilateral COVID-19 pneumonia and acute hypoxic respiratory failure. The patient is requiring 15 L oxygen and her saturation is only 87%. The patient is being closely monitored. Dr. Virk is following the patient closely. The patient is on broad-spectrum IV antibiotics and dexamethasone as well as remdesivir also. Past medical history reviewed. REVIEW OF SYSTEMS: CARDIOVASCULAR SYSTEM: No angina, palpitations. RESPIRATORY SYSTEM: As mentioned earlier. GI: As mentioned earlier. : No dysuria or retention. NERVOUS SYSTEM: No numbness, weakness. CURRENT MEDICATIONS: Reviewed. They include Tylenol, Ventolin, Abilify, vitamin C, Lipitor, Symbicort, Klonopin, colchicine, NovoLog. Doses are reviewed. PHYSICAL EXAMINATION: Patient is alert, oriented x3. Pulse is 88, blood pressure 100/58, respiration 18, temperature 100.6, pulse 87% on 15 L. HEENT: Conjunctivae normal. NECK: No jugular venous distention. CARDIOVASCULAR SYSTEM: S1, S2 muffled. RESPIRATORY SYSTEM: Breath sounds diminished at the bases. A few scattered rhonchi and crackles. ABDOMEN: Soft, non-tender. LEGS: No edema. No swelling. NERVOUS SYSTEM: No focal deficit. LABS/IMAGING: WBC 7.2, hemoglobin 15.1, sodium 135, potassium 3.3. Chest x-ray reviewed. ASSESSMENT: 1. Acute bilateral COVID-19 pneumonia with acute hypoxic respiratory failure, on high- flow oxygen, with possible sepsis. 2. Elevated D-dimer. 3. Hyponatremia. 4. Hypokalemia. 5. Elevated blood glucose with diabetes mellitus, type 2, uncontrolled. 6. History of asthma, chronic obstructive pulmonary disease. 7. Fibromyalgia. 8. Gastroesophageal reflux disease. 9. Hypertension. 10.Hyperlipidemia. 11.History of degenerative joint disease. 12.History of sleep apnea. 13.Chronic hypoxic respiratory failure, on 3 L nasal cannula. 14.Chronic bronchitis. 15.Obesity with body mass index of 35.3. 16.History of anxiety, bipolar, depression, schizoaffective disorder. 17.Remote history of nicotine dependence. 18.Hypomagnesemia. 19.Elevated inflammatory markers of COVID-19. 20.Increased AST, ALT. 21.Elevated procalcitonin. RECOMMENDATIONS AND DISCUSSION: In this 60-year-old woman who presented with multiple complex medical issues, we will monitor the patient closely, continue the current medications, continue with symptomatic treatment. Chest x-ray, which was personally reviewed by me, showed extensive bilateral infiltrates. I would also recommend a CT angio of the chest to rule out the possibility of acute pulmonary embolism. Otherwise, closely follow with Dr. Virk and continue with remdesivir. Continue with dexamethasone. Continue with Lovenox. Continue the rest of the medications. Guarded prognosis because of multiple complex medical issues. Further recommendations to follow. A copy of this dictation is being forwarded to Dr. Bowers, who is the primary physician. JOSE G / BECK: [id number] /
[2020-10-23 17:02] LABS: Glucose,Whole Blood 262 mg/dL (75-99)
[2020-10-23 20:21] LABS: Glucose,Whole Blood 240 mg/dL (75-99)
[2020-10-23] MEDS: ARIPiprazole 10 MG TAB PO SCH (20:50)
[2020-10-24] MEDS: ALBUTEROL HFA INHALER INHALATION SCH ×7 (00:08→23:34)
[2020-10-24 06:45] LABS: Basophils # (A) 0.1 k/uL (0-0.2); Basophils % (A) 1 %; Eosinophils % (A) 0 %; HCT 40.3 % (34.0-46.0); HGB 13.7 gm/dL (11.4-16.0); Lymphocytes # (A) 1.2 k/uL (1.0-4.8); Lymphocytes % (A) 31 %; MCH 29.8 pg (25.0-35.0); MCHC 34.1 g/dL (31.0-37.0); MCV 87.3 fL (80.0-100.0); Mean Platelet Volume 7.5; Monocytes # (A) 0.3 k/uL (0-1.0); Monocytes % (A) 9 %; Neutrophils # (A) 2.2 k/uL (1.3-7.7); Neutrophils % (A) 57 %; Platelet Count 157 k/uL (150-450); RBC 4.62 m/uL (3.80-5.40); RDW 15.1 % (11.5-15.5); WBC 3.8 k/uL (3.8-10.6)
[2020-10-24] MEDS: SYMBICORT 160-4.5 MCG INHALER INHALATION SCH ×2 (07:42→20:08)
[2020-10-24 08:02] LABS: Glucose,Whole Blood 111 mg/dL (75-99)
[2020-10-24] MEDS: INSULIN ASPART (NovoLOG) 100 UNIT/ML VIAL SQ SCH ×4 (08:21→21:23)
[2020-10-24] MEDS: PREGABALIN 100 MG CAP PO SCH ×2 (08:22→21:25)
[2020-10-24] MEDS: LOSARTAN 50 MG TAB PO SCH (08:22)
[2020-10-24] MEDS: lamoTRIgine 100 MG TAB PO SCH ×2 (08:22→21:24)
[2020-10-24] MEDS: dexAMETHasone 2 MG TAB PO SCH (08:22)
[2020-10-24] MEDS: ZINC SULFATE 220 MG CAP PO SCH (08:22)
[2020-10-24] MEDS: CHLORTHALIDONE 25 MG TAB PO SCH (08:22)
[2020-10-24] MEDS: OXcarbazepine 150 MG TAB PO SCH ×2 (08:23→21:24)
[2020-10-24] MEDS: TOPIRAMATE 25 MG TAB PO SCH ×2 (08:23→21:25)
[2020-10-24] MEDS: ASCORBIC ACID 500 MG TAB PO SCH (08:23)
[2020-10-24] MEDS: LINAGLIPTIN 5 MG TABLET PO SCH (08:23)
[2020-10-24] MEDS: ATORVASTATIN 20 MG TAB PO SCH (08:23)
[2020-10-24] MEDS: POTASSIUM CHLORIDE ER 10 MEQ TAB.ER.PRT PO SCH ×2 (08:23→15:33)
[2020-10-24] MEDS: ENOXAPARIN 40 MG/0.4 ML SYRINGE SQ SCH ×2 (08:30→21:23)
[2020-10-24] MEDS: COLCHICINE 0.6 MG EACH PO SCH ×2 (08:31→21:22)
[2020-10-24] MEDS: CHOLECALCIFEROL 25 MCG (1000 IU) TABLET PO SCH (08:40)
[2020-10-24] MEDS: clonazePAM 0.5 MG TAB PO SCH ×2 (08:40→21:22)
[2020-10-24] MEDS: oxyCODONE-APAP 10-325MG 1 EACH TAB PO PRN ×2 (08:40→21:25)
[2020-10-24 09:42] LABS: African American GFR (CKD) 79.4 (60.0-200.0); Albumin 3.9 g/dL (3.80-4.90); Albumin/Globulin Ratio 1.86 (1.60-3.17); Anion Gap 8.3 mmol/L (4.00-12.00); BUN/Creat Ratio 17.78 Ratio (12.00-20.00); C Reactive Protein 3.8 mg/dL (0.0-0.8); Calcium 8.5 mg/dL (8.7-10.3); Carbon Dioxide 32.7 mmol/L (21.6-31.8); Globulin 2.1 g/dL (1.6-3.3); Non-African American GFR(CKD) 68.5 (60.0-200.0); Potassium 2.8 mmol/L (3.5-5.5); Total Bilirubin 0.3 mg/dL (0.3-1.2)
[2020-10-24 11:49] LABS: Glucose,Whole Blood 214 mg/dL (75-99)
[2020-10-24] MEDS: REMDESIVIR 100 MG in SODIUM CHLORIDE 0.9% 250 ML IVPB SCH (12:57)
--- NOTE | 2020-10-24 14:52 | P.PN ---
Subjective Progress Note Date: 10/24/20 Principal diagnosis: CoVID 19 pneumonia This is a 60-year-old female with history of multiple medical problems including hypertension, type 2 diabetes, dyslipidemia, COPD, fibromyalgia, patient is also known to have history of obstructive sleep apnea, noncompliant with CPAP, pat ient uses mostly oxygen at night at 2 L. She is compliant with her oxygen for her presumptive obstructive sleep apnea syndrome and underlying COPD. Patient presented to the ER yesterday with 2 days history of shortness of breath, fever as high as 103, nonproductive cough, but she had no other symptoms, patient has chronic headaches, denies any loss of sensation of taste or smell. Denies any nausea vomiting abdominal pain melena or hematemesis. Patient denies exposure to Mayer virus, however she lives with her daughter was supposedly healthy at home. At any rate patient had a chest x-ray upon presentation to the ER that showed bibasilar infiltrates, the infiltrates were noted to be peripheral, and she had a PCR for covid 19 which came back positive. Patient was placed on 6 L nasal cannula, and her O2 saturations are 93%, she was later transitioned to 5 L and her O2 saturation remained at 95%. Considering her Covid 19 pneumonia, this consult was initiated. We saw the patient on consultation, recommended that we start the patient on remdesivir, will also recommended starting the patient on the Covid 19 cocktail, and also started colchicine at 0.6 mg by mouth twice a day. Upon presentation the patient had a temp of 102.4, and her temp this morning is 98.9. Patient had a relatively normal CBC. Normal platelets. She had lymphopenia. And she had a relatively normal electrolytes. Inflammatory markers including LDH and C-reactive protein with 645 and 37.2 respectively. On 10/22/2020 patient seen in follow-up, she is awake and alert, she remains on 6 L of oxygen her pulse ox is 90-93%, she is breathing comfortably, although still having fever spikes, with a T-max of 101.8F this morning, today's day 2 of Remdesivir, we added colchicine, she is on oral Decadron 6 mg daily, she is on prophylactic dose of Lovenox, in addition to vitamins. Today's labs have been reviewed, showing d-dimer of 0.85, CRP is down to 4.6, associated LDH value from today, her pro-calcitonin level was 0.27, her influenza and RSV screen were negative. On 10/23/2020 patient seen in follow-up on medical floor, she is awake and alert, oriented 3, she is wheezy, has a congested cough, she is currently on 2 L of oxygen her pulse ox is between 87-93%, she still having some low-grade fev ers, today's chest x-ray showing patchy perihilar and basilar infiltrates without significant change. Patient remains on Remdesivir, today is day 3 of treatment, in addition to Decadron, prophylactic doses of Lovenox in her d-dimer remains low at 0.62, in addition to vitamins and colchicine. Her inflammatory markers are coming down, her procalcitonin level was not elevated to 0.27 The patient is seen today 10/24/2020 in follow-up on the regular medical floor. She is currently sitting up in a chair at the bedside. Awake and alert in no acute distress. He denies any worsening shortness of breath, cough or congestion. Slightly better today compared to yesterday. Still requiring 15 L high flow nasal cannula to maintain O2 saturation the 90s. CT angiogram ruled out pulmonary embolism. Blood cultures revealing no growth. White count 3.8. Hemoglobin 13.7. D-dimer 0.55. Sodium 137. Potassium 3.8. Creatinine 0.9. LDH 309. C-reactive protein 3.8. This is day #4 of Remdesivir. Remains on dexamethasone, colchicine, Lovenox, vitamin supplements. Continue on Symbicort and Ventolin. Ceftriaxone. Objective - Vital Signs Vital signs: Vital Signs Temp 99.2 F 10/24/20 10:00 Pulse 72 10/24/20 10:00 Resp 22 10/24/20 10:00 BP 93/59 10/24/20 10:00 Pulse Ox 89 L 10/24/20 10:00 Intake & Output 10/23/20 10/24/20 10/24/20 18:59 06:59 18:59 Intake Total 1100 Balance 1100 Intake: Intake, IV Titration 300 Amount Remdesivir 100 mg In 250 Sodium Chloride 0.9% 250 ml @ 250 mls/hr IVPB DAILY@1300 [facility] Rx#: [id number] cefTRIAXone 1 gm In 50 Sodium Chloride 0.9% 50 ml @ 100 mls/hr IVPB Q24HR [facility] Rx#:[id number] Oral 800 Other: Voiding Method Toilet Toilet # Voids 3 3 - Exam GENERAL EXAM: Alert, pleasant, obese, 60-year-old female patient, on 15 L of oxygen the pulse ox of 89% comfortable in no apparent distress. HEAD: Normocephalic/atraumatic. EYES: Normal reaction of pupils, equal size. Conjunctiva pink, sclera white. NOSE: Clear with pink turbinates. THROAT: No erythema or exudates. NECK: No masses, no JVD, no thyroid enlargement, no adenopathy. CHEST: No chest wall deformity. Symmetrical expansion. LUNGS: Equal air entry with scattered rhonchi, crackles in the posterior bases. CVS: Regular rate and rhythm, normal S1 and S2, no gallops, no murmurs, no rubs ABDOMEN: Soft, nontender. No hepatosplenomegaly, normal bowel sounds, no guarding or rigidity. EXTREMITIES: No clubbing, no edema, no cyanosis, 2+ pulses and upper and lower extremities. MUSCULOSKELETAL: Muscle strength and tone normal. SPINE: No scoliosis or deformity SKIN: No rashes CENTRAL NERVOUS SYSTEM: No focal deficits, tone is normal in all 4 extremities. PSYCHIATRIC: Alert and oriented -3. Appropriate affect. Intact judgment and insight. - Labs CBC & Chem 7: 10/24/20 06:25 10/24/20 06:25 Labs: Abnormal Lab Results - Last 24 Hours (Table) 10/23/20 10/23/20 10/24/20 Range/Units 17:00 20:19 06:25 Potassium 2.8 L (3.5-5.5) mmol/L Carbon Dioxide 32.7 H (21.6-31.8) mmol/L Glucose 131 H (70-110) mg/dL POC Glucose (mg/dL) 262 H 240 H (75-99) mg/dL Calcium 8.5 L (8.7-10.3) mg/dL AST 60 H (13-35) U/L ALT 67 H (8-44) U/L Lactate Dehydrogenase 309 H (120-246) U/L C-Reactive Protein 3.8 H (0.0-0.8) mg/dL Total Protein 6.0 L (6.2-8.2) g/dL 10/24/20 10/24/20 Range/Units 08:00 11:45 Potassium (3.5-5.5) mmol/L Carbon Dioxide (21.6-31.8) mmol/L Glucose (70-110) mg/dL POC Glucose (mg/dL) 111 H 214 H (75-99) mg/dL Calcium (8.7-10.3) mg/dL AST (13-35) U/L ALT (8-44) U/L Lactate Dehydrogenase (120-246) U/L C-Reactive Protein (0.0-0.8) mg/dL Total Protein (6.2-8.2) g/dL Microbiology - Last 24 Hours (Table) 10/21/20 08:48 Blood Culture - Preliminary Blood No Growth after 72 hours Assessment and Plan Assessment: 1 Acute on chronic hypoxic respiratory failure secondary to acute COVID 19 pneumonitis, influenza and RSV PCR were negative, started Remdesivir treatment on 10/21/2020 2 History of COPD 3 Elevated transaminases secondary to COVID 19 infection 4 Type 2 diabetes mellitus 5 History of obstructive sleep apnea syndrome 6 Dyslipidemia 7 History of degenerative joint disease 8 History of bipolar disorder Plan: The patient was seen and evaluated by Dr. Virk Continue the current treatment plan Titrate down the FiO2 as tolerated Day number 4 of Remdesivir Follow-up chest x-ray, inflammatory markers in a.m. We'll continue to follow I, the cosigning physician, performed a history & physical examination of the patient. Lungs sounds bilateral scattered rhonchi, crackles in the posterior bases. Maintaining good O2 saturations in the 90s on 15 L high flow nasal cannula. I discussed the assessment and plan of care with my nurse practitioner, Nicki Torres. I attest to the above note as dictated by her.
[2020-10-24] MEDS ORDERED: Magnesium Replacement Protocol 1 EACH MISC MISCELLANE PRN (16:53)
[2020-10-24] MEDS ORDERED: Potassium Replacement Protocol 1 EACH MISC MISCELLANE PRN (16:53)
[2020-10-24 17:25] LABS: Glucose,Whole Blood 258 mg/dL (75-99)
[2020-10-24] MEDS: POTASSIUM CHLORIDE ER 20 MEQ TAB.ER PO SCH ×3 (17:40→22:54)
[2020-10-24] MEDS: POTASSIUM CHLORIDE 20 MEQ in WATER FOR INJECTION 1 100ML.BAG IVPB SCH ×3 (17:54→21:32)
--- NOTE | 2020-10-24 20:13 | PN ---
PROGRESS NOTE DATE OF SERVICE: 10/24/2020 This 60-year-old woman who was being followed Dr. Bowers in the outpatient setting, had acute COVID-19 pneumonia, bilateral, with acute hypoxic respiratory failure. The patient also had a chest CT because of elevated D-dimer. The chest CTA showed a 3.2 cm thin-walled cyst in the anterior superior spleen. Otherwise study was thought to be suboptimal, multifocal bilateral infiltrates suspected. CT scan is reviewed personally by me. The patient is on high-flow oxygen also. The CT scan findings very typical of interstitial pneumonia associated with Covid 19 pneumonia. Past medical history reviewed. REVIEW OF SYSTEMS: CARDIOVASCULAR SYSTEM: No angina. RESPIRATORY: As mentioned earlier. GI mentioned earlier. no dysuria. NERVOUS SYSTEM: No numbness or weakness. CURRENT MEDICATIONS: Reviewed and include: Ventolin, Abilify, vitamin C, Lipitor, Symbicort, Rocephin. Klonopin, Colcrys, Hexadrol, Lovenox, Antivert, Trileptal, Cozaar. Doses reviewed. PHYSICAL EXAMINATION: Alert and oriented times three. Pulse 77. Blood pressure 114/60, respiration 20, temperature 98.2, pulse ox 88 percent on 15 L. HEENT: Conjunctivae normal. NECK: No JVD. CARDIOVASCULAR: S1, S2. RESPIRATION: Breath sounds diminished in the bases. Bilateral scattered rhonchi and crackles. ABDOMEN: Soft. Nontender. LEGS are no edema. No swelling. NERVOUS SYSTEM: No focal deficits. LABORATORY DATA: CBC within normal. Potassium 2.8. C-reactive protein noted. Other labs noted. ASSESSMENT: 1. Acute bilateral COVID-19 pneumonia with acute hypoxic respiratory failure on high- flow oxygen with possible sepsis present on admission. 2. Elevated D-dimer. 3. Severe hypokalemia. 4. Hyponatremia. 5. Elevated blood glucose with diabetes mellitus, type 2 uncontrolled with hyperglycemia. 6. History of asthma, chronic obstructive pulmonary disease. 7. Fibromyalgia. 8. Gastroesophageal reflux disease. 9. Hypertension. 10.Hyperlipidemia. 11.History of degenerative joint disease. 12.History of sleep apnea. 13.Chronic hypoxic respiratory failure on 3 L nasal cannula. 14.Chronic bronchitis. 15.Obesity with body mass index of 34.3. 16.History of anxiety, bipolar depression/ schizoaffective disorder. 17.Remote history of nicotine dependence. 18.Hypomagnesemia. 19.Elevated inflammatory markers of Covid 19. 20.Increased AST/ALT. 21.Elevated procalcitonin. RECOMMENDATIONS AND DISCUSSION: In this 60-year-old woman who presented with multiple complex medical issues, at this time I recommend to continue current management and symptomatic treatment. Continue the bronchodilators. Continue the Remdesivir. One more dose remaining at this time. I would recommend potassium and magnesium replacements. Continue to monitor. Guarded prognosis because of multiple complex medical issues. Further recommendations to follow. See orders for details. Please refer for the potassium supplementation. Chest x-ray was also reviewed. MMODL / IJN: [id number] /
[2020-10-24 20:36] LABS: Glucose,Whole Blood 195 mg/dL (75-99)
[2020-10-24] MEDS: ARIPiprazole 10 MG TAB PO SCH (21:22)
[2020-10-25] MEDS: POTASSIUM CHLORIDE ER 20 MEQ TAB.ER PO SCH (00:07)
[2020-10-25] MEDS: POTASSIUM CHLORIDE 20 MEQ in WATER FOR INJECTION 1 100ML.BAG IVPB SCH (00:10)
[2020-10-25] MEDS: ALBUTEROL HFA INHALER INHALATION SCH ×6 (03:44→23:40)
[2020-10-25 06:54] LABS: Glucose,Whole Blood 125 mg/dL (75-99)
[2020-10-25] MEDS: INSULIN ASPART (NovoLOG) 100 UNIT/ML VIAL SQ SCH ×4 (07:06→20:37)
[2020-10-25] MEDS: SYMBICORT 160-4.5 MCG INHALER INHALATION SCH ×2 (07:20→19:43)
[2020-10-25] MEDS: dexAMETHasone 2 MG TAB PO SCH (07:26)
--- NOTE | 2020-10-25 07:26 | XR ---
EXAMINATION TYPE: XR chest 1V portable DATE OF EXAM: 10/25/2020 COMPARISON: Chest x-ray 10/23/2020 HISTORY: Covid pneumonia TECHNIQUE: Single frontal view of the chest is obtained. FINDINGS: Bilateral airspace disease is noted. No evident pneumothorax or pleural effusion. Cardiome diastinal silhouette is unchanged. IMPRESSION: Findings consistent with patient's history of pneumonia
[2020-10-25] MEDS: PREGABALIN 100 MG CAP PO SCH ×2 (07:27→20:38)
[2020-10-25] MEDS: LOSARTAN 50 MG TAB PO SCH (07:27)
[2020-10-25] MEDS: ATORVASTATIN 20 MG TAB PO SCH (07:27)
[2020-10-25] MEDS: ASCORBIC ACID 500 MG TAB PO SCH (07:27)
[2020-10-25] MEDS: lamoTRIgine 100 MG TAB PO SCH ×2 (07:27→20:37)
[2020-10-25] MEDS: LINAGLIPTIN 5 MG TABLET PO SCH (07:27)
[2020-10-25] MEDS: CHLORTHALIDONE 25 MG TAB PO SCH (07:27)
[2020-10-25] MEDS: POTASSIUM CHLORIDE ER 10 MEQ TAB.ER.PRT PO SCH ×3 (07:28→20:38)
[2020-10-25] MEDS: ZINC SULFATE 220 MG CAP PO SCH (07:28)
[2020-10-25] MEDS: OXcarbazepine 150 MG TAB PO SCH ×2 (07:29→20:38)
[2020-10-25] MEDS: TOPIRAMATE 25 MG TAB PO SCH ×2 (07:29→20:38)
[2020-10-25] MEDS: COLCHICINE 0.6 MG EACH PO SCH ×2 (07:33→20:37)
[2020-10-25] MEDS: ENOXAPARIN 40 MG/0.4 ML SYRINGE SQ SCH ×2 (07:33→20:37)
[2020-10-25] MEDS: oxyCODONE-APAP 10-325MG 1 EACH TAB PO PRN ×2 (07:47→22:29)
[2020-10-25] MEDS: CHOLECALCIFEROL 25 MCG (1000 IU) TABLET PO SCH (07:47)
[2020-10-25] MEDS: clonazePAM 0.5 MG TAB PO SCH ×2 (07:47→20:37)
[2020-10-25 11:26] LABS: Glucose,Whole Blood 231 mg/dL (75-99)
[2020-10-25 11:46] LABS: African American GFR (CKD) >90 (>60 ml/min/1.73 sqM); Anion Gap 7 mmol/L; Blood Urea Nitrogen 16 mg/dL (7-17); Calcium 8.4 mg/dL (8.4-10.2); Carbon Dioxide 32 mmol/L (22-30); Chloride 96 mmol/L (98-107); Glucose 136 mg/dL (74-99); Non-African American GFR(CKD) 82 (>60 ml/min/1.73 sqM); Potassium 3.9 mmol/L (3.5-5.1); Sodium 135 mmol/L (137-145)
[2020-10-25] MEDS: FAMOTIDINE 20 MG TAB PO SCH ×2 (11:47→20:37)
[2020-10-25] MEDS: REMDESIVIR 100 MG in SODIUM CHLORIDE 0.9% 250 ML IVPB SCH (11:47)
[2020-10-25] MEDS ORDERED: POTASSIUM CHLORIDE ER 20 MEQ TAB.ER PO STA (11:53)
--- NOTE | 2020-10-25 12:01 | P.PN ---
Subjective Progress Note Date: 10/25/20 Principal diagnosis: CoVID 19 pneumonia This is a 60-year-old female with history of multiple medical problems including hypertension, type 2 diabetes, dyslipidemia, COPD, fibromyalgia, patient is also known to have history of obstructive sleep apnea, noncompliant with CPAP, pat ient uses mostly oxygen at night at 2 L. She is compliant with her oxygen for her presumptive obstructive sleep apnea syndrome and underlying COPD. Patient presented to the ER yesterday with 2 days history of shortness of breath, fever as high as 103, nonproductive cough, but she had no other symptoms, patient has chronic headaches, denies any loss of sensation of taste or smell. Denies any nausea vomiting abdominal pain melena or hematemesis. Patient denies exposure to Mayer virus, however she lives with her daughter was supposedly healthy at home. At any rate patient had a chest x-ray upon presentation to the ER that showed bibasilar infiltrates, the infiltrates were noted to be peripheral, and she had a PCR for covid 19 which came back positive. Patient was placed on 6 L nasal cannula, and her O2 saturations are 93%, she was later transitioned to 5 L and her O2 saturation remained at 95%. Considering her Covid 19 pneumonia, this consult was initiated. We saw the patient on consultation, recommended that we start the patient on remdesivir, will also recommended starting the patient on the Covid 19 cocktail, and also started colchicine at 0.6 mg by mouth twice a day. Upon presentation the patient had a temp of 102.4, and her temp this morning is 98.9. Patient had a relatively normal CBC. Normal platelets. She had lymphopenia. And she had a relatively normal electrolytes. Inflammatory markers including LDH and C-reactive protein with 645 and 37.2 respectively. On 10/22/2020 patient seen in follow-up, she is awake and alert, she remains on 6 L of oxygen her pulse ox is 90-93%, she is breathing comfortably, although still having fever spikes, with a T-max of 101.8F this morning, today's day 2 of Remdesivir, we added colchicine, she is on oral Decadron 6 mg daily, she is on prophylactic dose of Lovenox, in addition to vitamins. Today's labs have been reviewed, showing d-dimer of 0.85, CRP is down to 4.6, associated LDH value from today, her pro-calcitonin level was 0.27, her influenza and RSV screen were negative. On 10/23/2020 patient seen in follow-up on medical floor, she is awake and alert, oriented 3, she is wheezy, has a congested cough, she is currently on 2 L of oxygen her pulse ox is between 87-93%, she still having some low-grade fev ers, today's chest x-ray showing patchy perihilar and basilar infiltrates without significant change. Patient remains on Remdesivir, today is day 3 of treatment, in addition to Decadron, prophylactic doses of Lovenox in her d-dimer remains low at 0.62, in addition to vitamins and colchicine. Her inflammatory markers are coming down, her procalcitonin level was not elevated to 0.27 The patient is seen today 10/24/2020 in follow-up on the regular medical floor. She is currently sitting up in a chair at the bedside. Awake and alert in no acute distress. He denies any worsening shortness of breath, cough or congestion. Slightly better today compared to yesterday. Still requiring 15 L high flow nasal cannula to maintain O2 saturation the 90s. CT angiogram ruled out pulmonary embolism. Blood cultures revealing no growth. White count 3.8. Hemoglobin 13.7. D-dimer 0.55. Sodium 137. Potassium 3.8. Creatinine 0.9. LDH 309. C-reactive protein 3.8. This is day #4 of Remdesivir. Remains on dexamethasone, colchicine, Lovenox, vitamin supplements. Continue on Symbicort and Ventolin. Ceftriaxone. The patient is seen today 10/25/2020 in follow-up on the regular medical floor. She is currently resting comfortably in bed. Awake and alert in no acute distress. She continues to require 15 L high flow nasal cannula to maintain O2 saturation in the mid to upper 80s. She states she is feeling better today compared to yesterday. Her chest x-ray continues to show significant bilateral airspace disease. D-dimer 0.48. Sodium 135. Potassium 3.9. Creatinine 0.78. Today is her last dose of Remdesivir. Remains on dexamethasone, colchicine, Lovenox, vitamin supplements. Continue on Symbicort and Ventolin. Antibiotics in the form of ceftriaxone. Objective - Vital Signs Vital signs: Vital Signs Temp 98.8 F 10/25/20 10:00 Pulse 82 10/25/20 10:00 Resp 22 10/25/20 10:00 BP 107/65 10/25/20 10:00 Pulse Ox 91 L 10/25/20 11:51 Intake & Output 10/24/20 10/25/20 10/25/20 18:59 06:59 18:59 Other: Voiding Method Toilet Toilet # Voids 2 1 # Bowel Movements 1 - Exam GENERAL EXAM: Alert, pleasant, obese, 60-year-old female patient, on 15 L of oxygen the pulse ox of 85% comfortable in no apparent distress. HEAD: Normocephalic/atraumatic. EYES: Normal reaction of pupils, equal size. Conjunctiva pink, sclera white. NOSE: Clear with pink turbinates. THROAT: No erythema or exudates. NECK: No masses, no JVD, no thyroid enlargement, no adenopathy. CHEST: No chest wall deformity. Symmetrical expansion. LUNGS: Equal air entry with scattered rhonchi, crackles in the posterior bases. CVS: Regular rate and rhythm, normal S1 and S2, no gallops, no murmurs, no rubs ABDOMEN: Soft, nontender. No hepatosplenomegaly, normal bowel sounds, no guarding or rigidity. EXTREMITIES: No clubbing, no edema, no cyanosis, 2+ pulses and upper and lower extremities. MUSCULOSKELETAL: Muscle strength and tone normal. SPINE: No scoliosis or deformity SKIN: No rashes CENTRAL NERVOUS SYSTEM: No focal deficits, tone is normal in all 4 extremities. PSYCHIATRIC: Alert and oriented -3. Appropriate affect. Intact judgment and insight. - Labs CBC & Chem 7: 10/24/20 06:25 10/25/20 06:09 Labs: Abnormal Lab Results - Last 24 Hours (Table) 10/24/20 10/24/20 10/25/20 Range/Units 17:15 20:34 06:09 Sodium 135 L (137-145) mmol/L Chloride 96 L (98-107) mmol/L Carbon Dioxide 32 H (22-30) mmol/L Glucose 136 H (74-99) mg/dL POC Glucose (mg/dL) 258 H 195 H (75-99) mg/dL 10/25/20 10/25/20 Range/Units 06:53 11:25 Sodium (137-145) mmol/L Chloride (98-107) mmol/L Carbon Dioxide (22-30) mmol/L Glucose (74-99) mg/dL POC Glucose (mg/dL) 125 H 231 H (75-99) mg/dL Microbiology - Last 24 Hours (Table) 10/21/20 08:48 Blood Culture - Preliminary Blood No Growth after 96 hours Assessment and Plan Assessment: 1 Acute on chronic hypoxic respiratory failure secondary to acute COVID 19 pneumonitis, started Remdesivir treatment on 10/21/2020 2 History of COPD 3 Elevated transaminases secondary to COVID 19 infection 4 Type 2 diabetes mellitus 5 History of obstructive sleep apnea syndrome 6 Dyslipidemia 7 History of degenerative joint disease 8 History of bipolar disorder Plan: The patient was seen and evaluated by Dr. Virk Chest x-ray and labs reviewed Continue the current treatment plan We'll place her on AirVo to maintain O2 saturations greater than 90% Follow-up chest x-ray, inflammatory markers in a.m. We'll continue to follow I, the cosigning physician, performed a history & physical examination of the patient. Lungs sounds bilateral scattered rhonchi, crackles in the posterior bases. Maintaining good O2 saturations in the 90s on 15 L high flow nasal cannula. I discussed the assessment and plan of care with my nurse practitioner, Nicki Torres. I attest to the above note as dictated by her.
[2020-10-25 12:39] LABS: C Reactive Protein 2.9 mg/dL (0.0-0.8); Magnesium 1.7 mg/dL (1.5-2.4); Potassium 3.9 mmol/L (3.5-5.5)
[2020-10-25 16:37] LABS: Glucose,Whole Blood 236 mg/dL (75-99)
[2020-10-25] MEDS: MAGNESIUM SULFATE-D5W PMX 1 GM in DEXTROSE/WATER 1 100ML.BAG IVPB SCH ×2 (18:27→19:54)
--- NOTE | 2020-10-25 18:45 | PN ---
PROGRESS NOTE DATE OF SERVICE: 10/25/2020 This 60-year-old woman who was admitted with acute bilateral Covid pneumonia had significant hypoxia. The patient is on AIRVO at this time. Dr. Virk is following the patient closely. Chest x-ray showed some minimal worsening today. The patient is finishing 5 day course of Remdesivir today. No chest pain. No palpitation. Past medical history reviewed. REVIEW OF SYSTEMS: CARDIOVASCULAR: S1, S2. RESPIRATION: As mentioned earlier. GI as mentioned earlier. : No dysuria. NERVOUS SYSTEM: No numbness or weakness. CURRENT MEDICATIONS: Reviewed and include: Tylenol, Ventolin, Abilify, vitamin C, [place], vitamin D3, Klonopin, Colcrys. Doses reviewed. PHYSICAL EXAMINATION: The patient is alert and oriented times three. Pulse 83, blood pressure 104/50, respiration 20, temperature 98.4, pulse ox 90 percent on 15% nonrebreather. HEENT: Conjunctivae normal. NECK: No JVD. CARDIOVASCULAR: S1, S2 muffled. RESPIRATORY: Breath sounds diminished in the bases. Bilateral scattered rhonchi and crackles. ABDOMEN: Soft. Nontender. LEGS are no edema, no swelling. NERVOUS SYSTEM: No focal deficits. LABS: Sodium 135. C-reactive protein is 2.9. LDH is 337. CBC noted. ASSESSMENT: 1. Acute bilateral Covid interstitial pneumonia with acute hypoxic respiratory failure on high-flow oxygen with possible sepsis present on admission. 2. Elevated D-dimer. 3. Severe hypokalemia improved. 4. Hyponatremia. 5. Elevated blood glucose with diabetes mellitus, type 2 uncontrolled with hyperglycemia. 6. History of asthma, chronic obstructive pulmonary disease. 7. Fibromyalgia. 8. Gastroesophageal reflux disease. 9. Hypertension. 10.Hyperlipidemia. 11.History of degenerative joint disease. 12.History of sleep apnea. 13.Chronic hypoxic respiratory failure on 3 L nasal cannula. 14.Chronic bronchitis. 15.Obesity body, mass index of 34.3. 16.History of anxiety/bipolar depression/ schizoaffective disorder. 17.Remote history of nicotine dependence. 18.Hypomagnesemia. 19.Elevated inflammatory markers of Covid 19. 20.Increased AST/ALT. 21.Elevated procalcitonin. RECOMMENDATIONS AND DISCUSSION: I recommend to continue current medications, continue with monitoring and symptomatic treatment. Continue the bronchodilators. Continue the rest of medications including steroids and Remdesivir. Overall prognosis extremely guarded because of multiple complex medical issues. Further recommendations to follow. The patient might be a candidate for extended course of Remdesivir. MMMIHAELAL / SHON: [id number] /
[2020-10-25 20:18] LABS: Glucose,Whole Blood 175 mg/dL (75-99)
[2020-10-25] MEDS: ARIPiprazole 10 MG TAB PO SCH (20:37)
[2020-10-26] MEDS: ALBUTEROL HFA INHALER INHALATION SCH ×5 (04:01→20:07)
[2020-10-26 06:47] LABS: Basophils # (A) 0.1 k/uL (0-0.2); Basophils % (A) 1 %; Eosinophils % (A) 1 %; HCT 41.8 % (34.0-46.0); HGB 13.9 gm/dL (11.4-16.0); Lymphocytes % (A) 17 %; MCH 29.3 pg (25.0-35.0); MCHC 33.2 g/dL (31.0-37.0); MCV 88.2 fL (80.0-100.0); Mean Platelet Volume 7.4; Monocytes # (A) 0.4 k/uL (0-1.0); Monocytes % (A) 7 %; Neutrophils # (A) 4.2 k/uL (1.3-7.7); Neutrophils % (A) 72 %; Platelet Count 176 k/uL (150-450); RBC 4.74 m/uL (3.80-5.40); RDW 15.1 % (11.5-15.5); WBC 5.8 k/uL (3.8-10.6)
[2020-10-26 07:18] LABS: Glucose,Whole Blood 146 mg/dL (75-99)
[2020-10-26] MEDS: SYMBICORT 160-4.5 MCG INHALER INHALATION SCH ×2 (08:11→20:07)
--- NOTE | 2020-10-26 08:22 | XR ---
EXAMINATION TYPE: XR chest 1V portable DATE OF EXAM: 10/26/2020 HISTORY: Shortness of breath. COMPARISON: 10/25/2020 TECHNIQUE: Single view of the chest is submitted. FINDINGS: Demonstrated are scattered senescent parenchymal change. Coarse perihilar and basilar infiltrates noted unchanged from prior study. The heart is stable. Hilar and mediastinal structures are within normal limits. Degenerative changes are seen of the dorsal spine. IMPRESSION: 1. Coarse perihilar and basilar infiltrates noted unchanged from prior study.
[2020-10-26] MEDS: INSULIN ASPART (NovoLOG) 100 UNIT/ML VIAL SQ SCH ×4 (08:23→21:08)
[2020-10-26] MEDS: CHLORTHALIDONE 25 MG TAB PO SCH (08:25)
[2020-10-26] MEDS: FAMOTIDINE 20 MG TAB PO SCH ×2 (08:26→21:08)
[2020-10-26] MEDS: POTASSIUM CHLORIDE ER 10 MEQ TAB.ER.PRT PO SCH ×3 (08:26→21:08)
[2020-10-26] MEDS: lamoTRIgine 100 MG TAB PO SCH ×2 (08:26→21:09)
[2020-10-26] MEDS: ATORVASTATIN 20 MG TAB PO SCH (08:27)
[2020-10-26] MEDS: ZINC SULFATE 220 MG CAP PO SCH (08:28)
[2020-10-26] MEDS: LOSARTAN 50 MG TAB PO SCH (08:28)
[2020-10-26] MEDS: PREGABALIN 100 MG CAP PO SCH ×2 (08:28→21:08)
[2020-10-26] MEDS: COLCHICINE 0.6 MG EACH PO SCH ×2 (08:28→21:09)
[2020-10-26] MEDS: CHOLECALCIFEROL 25 MCG (1000 IU) TABLET PO SCH (08:29)
[2020-10-26] MEDS: dexAMETHasone 2 MG TAB PO SCH (08:30)
[2020-10-26] MEDS: ASCORBIC ACID 500 MG TAB PO SCH (08:31)
[2020-10-26] MEDS: clonazePAM 0.5 MG TAB PO SCH ×2 (08:31→21:08)
[2020-10-26] MEDS: LINAGLIPTIN 5 MG TABLET PO SCH (08:32)
[2020-10-26] MEDS: OXcarbazepine 150 MG TAB PO SCH ×2 (08:33→21:08)
[2020-10-26] MEDS: TOPIRAMATE 25 MG TAB PO SCH ×2 (08:33→21:08)
[2020-10-26] MEDS: ENOXAPARIN 40 MG/0.4 ML SYRINGE SQ SCH ×2 (08:34→21:09)
[2020-10-26] MEDS: oxyCODONE-APAP 10-325MG 1 EACH TAB PO PRN ×3 (08:42→21:16)
[2020-10-26 08:45] LABS: African American GFR (CKD) 91.6 (60.0-200.0); Anion Gap 7.7 mmol/L (4.00-12.00); BUN/Creat Ratio 18.75 Ratio (12.00-20.00); C Reactive Protein 2.3 mg/dL (0.0-0.8); Calcium 8.9 mg/dL (8.7-10.3); Carbon Dioxide 32.3 mmol/L (21.6-31.8); Potassium 4.2 mmol/L (3.5-5.5)
[2020-10-26 11:21] LABS: Glucose,Whole Blood 179 mg/dL (75-99)
--- NOTE | 2020-10-26 13:51 | P.PN ---
Subjective Progress Note Date: 10/26/20 HISTORY OF PRESENT ILLNESS This is a 60-year-old female admitted to the hospital for COVID 19 pn eumonia and acute on chronic hypoxic respiratory failure. Patient was started on Remdesivir and completed course yesterday. She is also maintained on Rocephin, dexamethasone, Lovenox and supplements. She is currently pulse 91% on high flow Airvo 50%, FiO2 of 82% area and patient states she still has a cough. No chest pain. She states in general she feels decent. She denies abdominal pain, nausea vomiting or diarrhea. She has been afebrile since October 23. Heart rate 72, blood pressure 95/58. CBC 5.8, lymphocytes normal. Creatinine 0.8. LDH 346, C-reactive protein 2.3. PHYSICAL EXAMINATION Gen: This is a 60-year-old female. Patient is resting bed appears to be comfortable at rest. HEENT: Head is atraumatic, normocephalic. Pupils equal, round. Sclerae is anicteric. NECK: Supple. No JVD. No lymphadenopathy. LUNGS: Clear to auscultation. No wheezes or rhonchi. No intercostal retractions. HEART: Regular rate and rhythm. No murmur. ABDOMEN: Soft. Bowel sounds are present. No masses. No tenderness. EXTREMITIES: No pedal edema. No calf tenderness. NEUROLOGICAL: Patient is awake, alert and oriented x3. ASSESSMENT COVID-19 pneumonia Acute on chronic hypoxic respiratory failure PLAN Patient completed a course of Remdesivir Continue Rocephin, dexamethasone, Lovenox and supplements Continue supportive care Further recommendations based upon patient's clinical course. The above dictated assessment and findings were discussed with Dr. Stevens. The impression and plan of care have been directed as dictated. Moon Evans nurse practitioner acting as scribe for Dr. Stevens. Objective - Vital Signs Vital signs: Vital Signs Temp 98.5 F 10/26/20 05:10 Pulse 69 10/26/20 05:10 Resp 20 10/26/20 05:10 BP 132/70 10/26/20 05:10 Pulse Ox 91 L 10/26/20 05:10 Intake & Output 10/25/20 10/26/20 10/26/20 18:59 06:59 18:59 Other: Voiding Method Toilet Toilet # Voids 4 2 # Bowel Movements 2 1 - Labs CBC & Chem 7: 10/26/20 06:10 10/26/20 06:10 Labs: Abnormal Lab Results - Last 24 Hours (Table) 10/25/20 10/25/20 10/25/20 Range/Units 06:09 06:09 11:25 Sodium 135 L (137-145) mmol/L Chloride 96 L (98-107) mmol/L Carbon Dioxide 32 H (22-30) mmol/L Glucose 136 H (74-99) mg/dL POC Glucose (mg/dL) 231 H (75-99) mg/dL Lactate Dehydrogenase 337 H (120-246) U/L C-Reactive Protein 2.9 H (0.0-0.8) mg/dL 10/25/20 10/25/20 10/26/20 Range/Units 16:35 20:16 06:10 Sodium (137-145) mmol/L Chloride (98-107) mmol/L Carbon Dioxide 32.3 H (22-30) mmol/L Glucose 133 H (74-99) mg/dL POC Glucose (mg/dL) 236 H 175 H (75-99) mg/dL Lactate Dehydrogenase 346 H (120-246) U/L C-Reactive Protein 2.3 H (0.0-0.8) mg/dL 10/26/20 Range/Units 07:16 Sodium (137-145) mmol/L Chloride (98-107) mmol/L Carbon Dioxide (22-30) mmol/L Glucose (74-99) mg/dL POC Glucose (mg/dL) 146 H (75-99) mg/dL Lactate Dehydrogenase (120-246) U/L C-Reactive Protein (0.0-0.8) mg/dL Microbiology - Last 24 Hours (Table) 10/21/20 08:48 Blood Culture - Preliminary Blood No Growth after 96 hours
--- NOTE | 2020-10-26 14:59 | P.PN ---
Subjective Progress Note Date: 10/26/20 Principal diagnosis: Shortness of breath and fever This is a 60-year-old female with history of multiple medical problems including hypertension, type 2 diabetes, dyslipidemia, COPD, fibromyalgia, patient is also known to have history of obstructive sleep apnea, noncompliant with CPAP, patient uses mostly oxygen at night at 2 L. She is compliant with her oxygen for her presumptive obstructive sleep apnea syndrome and underlying COPD. Patient presented to the ER yesterday with 2 days history of shortness of breath, fever as high as 103, nonproductive cough, but she had no other symptoms, patient has chronic headaches, denies any loss of sensation of taste or smell. Denies any nausea vomiting abdominal pain melena or hematemesis. Patient denies exposure to Mayer virus, however she lives with her daughter was supposedly healthy at home. At any rate patient had a chest x-ray upon presentation to the ER that showed bibasilar infiltrates, the infiltrates were noted to be peripheral, and she had a PCR for covid 19 which came back positive. Patient was placed on 6 L nasal cannula, and her O2 saturations are 93%, she was later transitioned to 5 L and her O2 saturation remained at 95%. Considering her Covid 19 pneumonia, this consult was initiated. We saw the p atient on consultation, recommended that we start the patient on remdesivir, will also recommended starting the patient on the Covid 19 cocktail, and also started colchicine at 0.6 mg by mouth twice a day. Upon presentation the patient had a temp of 102.4, and her temp this morning is 98.9. Patient had a relatively normal CBC. Normal platelets. She had lymphopenia. And she had a relatively normal electrolytes. Inflammatory markers including LDH and C- reactive protein with 645 and 37.2 respectively. On 10/22/2020 patient seen in follow-up, she is awake and alert, she remains on 6 L of oxygen her pulse ox is 90-93%, she is breathing comfortably, although still having fever spikes, with a T-max of 101.8F this morning, today's day 2 of Remdesivir, we added colchicine, she is on oral Decadron 6 mg daily, she is on prophylactic dose of Lovenox, in addition to vitamins. Today's labs have been reviewed, showing d-dimer of 0.85, CRP is down to 4.6, associated LDH value from today, her pro-calcitonin level was 0.27, her influenza and RSV screen were negative. On 10/23/2020 patient seen in follow-up on medical floor, she is awake and alert, oriented 3, she is wheezy, has a congested cough, she is currently on 2 L of oxygen her pulse ox is between 87-93%, she still having some low-grade fevers, today's chest x-ray showing patchy perihilar and basilar infiltrates without significant change. Patient remains on Remdesivir, today is day 3 of treatment, in addition to Decadron, prophylactic doses of Lovenox in her d-dimer remains low at 0.62, in addition to vitamins and colchicine. Her inflammatory markers are coming down, her procalcitonin level was not elevated to 0.27 On 10/26/2019 patient seen in follow-up on medical floor, she is currently on high flow oxygen per year flow at 50 L and FiO2 of 82%, and her pulse ox is 91%, she states his breathing comfortably, overall her breathing is better, she is feeling better, she's had that no fever or chills, hemodynamically stable, no chest discomfort. 0.9 normal saline is infusing at 20 ML per hour, chest x-ray today showed coarse perihilar and basilar infiltrates unchanged from prior study. She finished her Remdesivir treatment yesterday, she remains on bronchodilators, she remains on dexamethasone 6 mg daily, subcu Lovenox 40 mg twice daily, oral Pepcid, vitamin C D and zinc. Today's labs have been reviewed, CBC is within normal limits, d-dimer 0.49, renal profile is unremarkable, CO2 was mildly elevated at 32, the rest of electrolytes were within normal limits, LDH is 346, and CRP is 2.3. No Altered mentation, patient is tolerating oral diet, no nausea vomiting no abdominal pain Objective - Vital Signs Vital signs: Vital Signs Temp 99.1 F 10/26/20 10:00 Pulse 72 10/26/20 10:00 Resp 16 10/26/20 10:00 BP 95/58 10/26/20 10:00 Pulse Ox 91 L 10/26/20 10:00 Intake & Output 10/25/20 10/26/20 10/26/20 18:59 06:59 18:59 Other: Voiding Method Toilet Toilet # Voids 4 2 # Bowel Movements 2 1 - Exam GENERAL EXAM: Alert, pleasant, 60-year-old white female, on Airvo at 50%, and FiO2 of 82% comfortable in no apparent distress. HEAD: Normocephalic/atraumatic. EYES: Normal reaction of pupils, equal size. Conjunctiva pink, sclera white. NOSE: Clear with pink turbinates. THROAT: No erythema or exudates. NECK: No masses, no JVD, no thyroid enlargement, no adenopathy. CHEST: No chest wall deformity. Symmetrical expansion. LUNGS: Equal air entry with no crackles, wheeze, rhonchi or dullness. CVS: Regular rate and rhythm, normal S1 and S2, no gallops, no murmurs, no rubs ABDOMEN: Soft, nontender. No hepatosplenomegaly, normal bowel sounds, no guardi ng or rigidity. EXTREMITIES: No clubbing, no edema, no cyanosis, 2+ pulses and upper and lower extremities. MUSCULOSKELETAL: Muscle strength and tone normal. SPINE: No scoliosis or deformity SKIN: No rashes CENTRAL NERVOUS SYSTEM: Alert and oriented -3. No focal deficits, tone is normal in all 4 extremities. PSYCHIATRIC: Alert and oriented -3. Appropriate affect. Intact judgment and insight. - Labs CBC & Chem 7: 10/26/20 06:10 10/26/20 06:10 Labs: Abnormal Lab Results - Last 24 Hours (Table) 10/25/20 10/25/20 10/26/20 Range/Units 16:35 20:16 06:10 Carbon Dioxide 32.3 H (21.6-31.8) mmol/L Glucose 133 H (70-110) mg/dL POC Glucose (mg/dL) 236 H 175 H (75-99) mg/dL Lactate Dehydrogenase 346 H (120-246) U/L C-Reactive Protein 2.3 H (0.0-0.8) mg/dL 10/26/20 10/26/20 Range/Units 07:16 11:20 Carbon Dioxide (21.6-31.8) mmol/L Glucose (70-110) mg/dL POC Glucose (mg/dL) 146 H 179 H (75-99) mg/dL Lactate Dehydrogenase (120-246) U/L C-Reactive Protein (0.0-0.8) mg/dL Microbiology - Last 24 Hours (Table) 10/21/20 08:48 Blood Culture - Preliminary Blood No Growth after 120 hours Assessment and Plan Plan: Assessment: #1. Acute on chronic hypoxic respiratory failure secondary to acute COVID 19 pneumonitis, influenza and RSV PCR were negative, started Remdesivir treatment on 10/21/2020, completed Remdesivir on 10/25/2020 #2. History of COPD #3. Elevated transaminases secondary to COVID 19 infection #4. Type 2 diabetes mellitus #5. History of obstructive sleep apnea syndrome #6. Dyslipidemia #7. History of degenerative joint disease #8. History of bipolar disorder Plan: Patient has completed Remdesivir treatment, continues on high flow oxygen, renal inflammatory markers have improved since admission, today's d-dimer was noted, c ontinue with current dose of Lovenox, oral Decadron, vitamin C and zinc. Continue to monitor oxygenation pattern, febrile pattern, work of breathing. We'll follow I performed a history & physical examination of the patient and discussed their management with my nurse practitioner, Melany Stanton. I reviewed the nurse practitioner's note and agree with the documented findings and plan of care. Lung sounds are positive for diminished breath sounds. The findings and the impression was discussed with the patient. I attest to the documentation by the nurse practitioner. Time with Patient: Less than 30
[2020-10-26 16:33] LABS: Glucose,Whole Blood 256 mg/dL (75-99)
--- NOTE | 2020-10-26 18:01 | PN ---
PROGRESS NOTE DATE OF SERVICE: 10/26/2020 This is a 60-year-old woman who was admitted with bilateral COVID interstitial pneumonia and acute hypoxic respiratory failure. She is being closely monitored at this time. Patient is on AIRVO at this time. is following the patient closely. Most recent chest x-ray was reviewed personally by me showed bilateral interstitial pneumonia indicative of COVID pneumonia. PAST MEDICAL HISTORY: Reviewed. REVIEW OF SYSTEMS: CARDIOVASCULAR: As mentioned earlier. RESPIRATORY: As mentioned earlier. GI: As mentioned earlier. : No dysuria. NERVOUS SYSTEM: No numbness or weakness. CURRENT MEDICATIONS: Tylenol, Ventolin, Abilify, vitamin C, Lipitor, Symbicort, hygroton, Klonopin, Colcrys, Hexadrol, Lovenox, Pepcid. PHYSICAL EXAMINATION: GENERAL: Patient is alert, oriented x3. VITAL SIGNS: Pulse 82, blood pressure 140/60, respirations 16, temperature 98.2, pulse ox 89 percent on high-flow AIRVO. HEENT: Conjunctivae normal. Oral mucosa moist. NECK: No jugular venous distention. No carotid bruits. No lymph node enlargement. RESPIRATORY: Breath sounds diminished at the bases. A few scattered rhonchi. HEART: S1 and S2, muffled. ABDOMEN: Soft, obese. NERVOUS: No focal deficits. LABS: CBC within normal limits. Sodium 137, potassium 4.2. C-reactive protein is 2.3, LDH is 346. ASSESSMENT: 1. Acute bilateral COVID interstitial pneumonia with acute hypoxic respiratory failure on high-flow oxygen with possible sepsis present on admission. 2. Elevated D-dimer. 3. Severe hypokalemia, improved. 4. Status post remdesivir. 5. Hyponatremia. 6. Elevated blood glucose with diabetes mellitus, type 2 uncontrolled with hyperglycemia. 7. History of asthma and chronic obstructive pulmonary disease. 8. Fibromyalgia. 9. Gastroesophageal reflux disease. 10.Hypertension. 11.Hyperlipidemia. 12.History of degenerative joint disease. 13.History of sleep apnea. 14.Chronic hypoxic respiratory failure on 3 L nasal cannula. 15.Chronic bronchitis. 16.Obesity with body mass index of 34.3. 17.History of anxiety, bipolar depression, schizoaffective disorder. 18.Remote history of nicotine dependence. 19.Hypomagnesemia. 20.Elevated inflammatory markers of COVID-19. 21.Increased AST and ALT. 22.Elevated procalcitonin. 23.FULL CODE. RECOMMENDATIONS AND DISCUSSION: In this 60-year-old woman who presents with multiple complex medical issues including COVID-19 pneumonia still has significant respiratory failure. The patient has extensive bilateral lung lesions. We will continue to monitor with consult line of management. Continue with Lovenox and dexamethasone. The patient did finish the course of Remdesivir. Otherwise, I would also repeat procalcitonin. Continue to monitor. Further recommendations to follow. MMODL / IJN: [id number] / MTDSilvino
[2020-10-26 21:02] LABS: Glucose,Whole Blood 192 mg/dL (75-99)
[2020-10-26] MEDS: ARIPiprazole 10 MG TAB PO SCH (21:09)
[2020-10-27] MEDS: ALBUTEROL HFA INHALER INHALATION SCH ×7 (00:18→20:56)
[2020-10-27 07:18] LABS: Glucose,Whole Blood 101 mg/dL (75-99)
[2020-10-27] MEDS: SYMBICORT 160-4.5 MCG INHALER INHALATION SCH ×2 (07:48→20:50)
[2020-10-27] MEDS: INSULIN ASPART (NovoLOG) 100 UNIT/ML VIAL SQ SCH ×4 (08:35→21:23)
[2020-10-27] MEDS: FAMOTIDINE 20 MG TAB PO SCH ×2 (08:48→21:25)
[2020-10-27] MEDS: CHLORTHALIDONE 25 MG TAB PO SCH (08:49)
[2020-10-27] MEDS: ASCORBIC ACID 500 MG TAB PO SCH (08:49)
[2020-10-27] MEDS: clonazePAM 0.5 MG TAB PO SCH ×2 (08:49→21:23)
[2020-10-27] MEDS: dexAMETHasone 2 MG TAB PO SCH (08:50)
[2020-10-27] MEDS: POTASSIUM CHLORIDE ER 10 MEQ TAB.ER.PRT PO SCH ×3 (08:50→21:23)
[2020-10-27] MEDS: CHOLECALCIFEROL 25 MCG (1000 IU) TABLET PO SCH (08:51)
[2020-10-27] MEDS: LINAGLIPTIN 5 MG TABLET PO SCH (08:52)
[2020-10-27] MEDS: lamoTRIgine 100 MG TAB PO SCH ×2 (08:53→21:23)
[2020-10-27] MEDS: ATORVASTATIN 20 MG TAB PO SCH (08:53)
[2020-10-27] MEDS: LOSARTAN 50 MG TAB PO SCH (08:53)
[2020-10-27] MEDS: PREGABALIN 100 MG CAP PO SCH ×2 (08:54→21:23)
[2020-10-27] MEDS: ZINC SULFATE 220 MG CAP PO SCH (08:54)
[2020-10-27] MEDS: COLCHICINE 0.6 MG EACH PO SCH ×2 (08:56→21:23)
[2020-10-27] MEDS: ENOXAPARIN 40 MG/0.4 ML SYRINGE SQ SCH ×2 (08:57→21:29)
[2020-10-27] MEDS: OXcarbazepine 150 MG TAB PO SCH ×2 (08:57→21:23)
[2020-10-27] MEDS: oxyCODONE-APAP 10-325MG 1 EACH TAB PO PRN ×2 (08:58→21:29)
[2020-10-27] MEDS: TOPIRAMATE 25 MG TAB PO SCH ×2 (08:58→21:23)
[2020-10-27] MEDS: ACETAMINOPHEN TAB 325 MG TAB PO PRN (08:59)
[2020-10-27 09:18] LABS: Basophils # (A) 0.02 X 10*3/uL (0.00-0.10); Basophils % (A) 0.3 %; Eosinophils # (A) 0.04 X 10*3/uL (0.04-0.35); Eosinophils % (A) 0.6 %; HCT 41.7 % (37.2-46.3); HGB 13.5 g/dL (12.0-15.0); Lymphocytes % (A) 17.2 %; MCH 28.7 pg (27.0-32.0); MCHC 32.4 g/dL (32.0-37.0); MCV 88.5 fL (80.0-97.0); Monocytes # (A) 0.53 X 10*3/uL (0.20-1.00); Monocytes % (A) 7.6 %; Neutrophils # (A) 5.09 X 10*3/uL (1.80-7.70); Neutrophils % (A) 72.7 %; Platelet Count 217 X 10*3/uL (140-440); RBC 4.71 X 10*6/uL (4.10-5.20); RDW 15.6 % (11.5-14.5); WBC 6.99 X 10*3/uL (4.50-10.00)
--- NOTE | 2020-10-27 09:23 | XR ---
EXAMINATION TYPE: XR chest 1V portable DATE OF EXAM: 10/27/2020 HISTORY: Shortness of breath. COMPARISON: 10/26/2020 TECHNIQUE: Single view of the chest is submitted. FINDINGS: Demonstrated are scattered senescent parenchymal change. Patchy perihilar and basilar infiltrates persist although may be slightly improved. The heart is stable. Hilar and mediastinal structures are within normal limits. Degenerative changes are seen of the dorsal spine. IMPRESSION: 1. Patchy perihilar and basilar infiltrates persist although may be slightly improved.
[2020-10-27 10:13] LABS: African American GFR (CKD) 107.6 (60.0-200.0); BUN/Creat Ratio 21.43 Ratio (12.00-20.00); C Reactive Protein 2.7 mg/dL (0.0-0.8); Calcium 8.9 mg/dL (8.7-10.3); Ferritin 629.1 ng/mL (10.0-291.0); Non-African American GFR(CKD) 92.9 (60.0-200.0); Potassium 3.5 mmol/L (3.5-5.5)
[2020-10-27 11:27] LABS: Glucose,Whole Blood 179 mg/dL (75-99)
--- NOTE | 2020-10-27 16:35 | P.PN ---
Subjective Progress Note Date: 10/27/20 Principal diagnosis: Shortness of breath and fever This is a 60-year-old female with history of multiple medical problems including hypertension, type 2 diabetes, dyslipidemia, COPD, fibromyalgia, patient is also known to have history of obstructive sleep apnea, noncompliant with CPAP, patient uses mostly oxygen at night at 2 L. She is compliant with her oxygen for her presumptive obstructive sleep apnea syndrome and underlying COPD. Patient presented to the ER yesterday with 2 days history of shortness of breath, fever as high as 103, nonproductive cough, but she had no other symptoms, patient has chronic headaches, denies any loss of sensation of taste or smell. Denies any nausea vomiting abdominal pain melena or hematemesis. Patient denies exposure to Mayer virus, however she lives with her daughter was supposedly healthy at home. At any rate patient had a chest x-ray upon presentation to the ER that showed bibasilar infiltrates, the infiltrates were noted to be peripheral, and she had a PCR for covid 19 which came back positive. Patient was placed on 6 L nasal cannula, and her O2 saturations are 93%, she was later transitioned to 5 L and her O2 saturation remained at 95%. Considering her Covid 19 pneumonia, this consult was initiated. We saw the p atient on consultation, recommended that we start the patient on remdesivir, will also recommended starting the patient on the Covid 19 cocktail, and also started colchicine at 0.6 mg by mouth twice a day. Upon presentation the patient had a temp of 102.4, and her temp this morning is 98.9. Patient had a relatively normal CBC. Normal platelets. She had lymphopenia. And she had a relatively normal electrolytes. Inflammatory markers including LDH and C- reactive protein with 645 and 37.2 respectively. On 10/22/2020 patient seen in follow-up, she is awake and alert, she remains on 6 L of oxygen her pulse ox is 90-93%, she is breathing comfortably, although still having fever spikes, with a T-max of 101.8F this morning, today's day 2 of Remdesivir, we added colchicine, she is on oral Decadron 6 mg daily, she is on prophylactic dose of Lovenox, in addition to vitamins. Today's labs have been reviewed, showing d-dimer of 0.85, CRP is down to 4.6, associated LDH value from today, her pro-calcitonin level was 0.27, her influenza and RSV screen were negative. On 10/23/2020 patient seen in follow-up on medical floor, she is awake and alert, oriented 3, she is wheezy, has a congested cough, she is currently on 2 L of oxygen her pulse ox is between 87-93%, she still having some low-grade fevers, today's chest x-ray showing patchy perihilar and basilar infiltrates without significant change. Patient remains on Remdesivir, today is day 3 of treatment, in addition to Decadron, prophylactic doses of Lovenox in her d-dimer remains low at 0.62, in addition to vitamins and colchicine. Her inflammatory markers are coming down, her procalcitonin level was not elevated to 0.27 On 10/26/2019 patient seen in follow-up on medical floor, she is currently on high flow oxygen per year flow at 50 L and FiO2 of 82%, and her pulse ox is 91%, she states his breathing comfortably, overall her breathing is better, she is feeling better, she's had that no fever or chills, hemodynamically stable, no chest discomfort. 0.9 normal saline is infusing at 20 ML per hour, chest x-ray today showed coarse perihilar and basilar infiltrates unchanged from prior study. She finished her Remdesivir treatment yesterday, she remains on bronchodilators, she remains on dexamethasone 6 mg daily, subcu Lovenox 40 mg twice daily, oral Pepcid, vitamin C D and zinc. Today's labs have been reviewed, CBC is within normal limits, d-dimer 0.49, renal profile is unremarkable, CO2 was mildly elevated at 32, the rest of electrolytes were within normal limits, LDH is 346, and CRP is 2.3. No Altered mentation, patient is tolerating oral diet, no nausea vomiting no abdominal pain On 10/27/2020 patient seen in follow-up on medical floor. Patient remains on high flow oxygen per Airvo with 50 L and FiO2 of 82%, and her pulse ox has been 87-89%, patient feels more dyspneic on today's exam, she did have a fever spike earlier today in the morning however it is not recorded. She is coughing, however her cough is dry, nonproductive. No chest pain. Today's chest x-ray shows patchy perihilar basilar infiltrates noted to be slightly improved. Patient remains on empiric antibiotics in the form of Rocephin, she is on 6 mg oral dose of Decadron on a daily basis, she is on Lovenox 40 mg twice a day, patient to vitamin C D and zinc. Her last d-dimer yesterday was 0.49, today's labs have been reviewed. Pro-calcitonin is 0.22 on today's labs, inflammatory markers are improving. Objective - Vital Signs Vital signs: Vital Signs Temp 98.9 F 10/27/20 14:00 Pulse 86 10/27/20 14:00 Resp 16 10/27/20 14:00 BP 114/60 10/27/20 14:00 Pulse Ox 92 L 10/27/20 14:00 Intake & Output 10/26/20 10/27/20 10/27/20 18:59 06:59 18:59 Intake Total 100 340 240 Balance 100 340 240 Intake: Oral 100 340 240 Other: # Voids 4 2 - Exam GENERAL EXAM: Alert, pleasant, 60-year-old white female, on Airvo at 50%, and FiO2 of 82% or more dyspneic on today's exam, and her pulse ox is 87-89% comfortable in no apparent distress. HEAD: Normocephalic/atraumatic. EYES: Normal reaction of pupils, equal size. Conjunctiva pink, sclera white. NOSE: Clear with pink turbinates. THROAT: No erythema or exudates. NECK: No masses, no JVD, no thyroid enlargement, no adenopathy. CHEST: No chest wall deformity. Symmetrical expansion. LUNGS: Equal air entry with no crackles, wheeze, rhonchi or dullness. CVS: Regular rate and rhythm, normal S1 and S2, no gallops, no murmurs, no rubs ABDOMEN: Soft, nontender. No hepatosplenomegaly, normal bowel sounds, no guarding or rigidity. EXTREMITIES: No clubbing, no edema, no cyanosis, 2+ pulses and upper and lower extremities. MUSCULOSKELETAL: Muscle strength and tone normal. SPINE: No scoliosis or deformity SKIN: No rashes CENTRAL NERVOUS SYSTEM: Alert and oriented -3. No focal deficits, tone is normal in all 4 extremities. PSYCHIATRIC: Alert and oriented -3. Appropriate affect. Intact judgment and insight. - Labs CBC & Chem 7: 10/27/20 06:09 10/27/20 06:09 Labs: Abnormal Lab Results - Last 24 Hours (Table) 10/26/20 10/26/20 10/26/20 Range/Units 06:10 16:30 20:42 RDW (11.5-14.5) % Immature Gran # (0.00-0.04) X 10*3/uL Chloride (96-109) mmol/L Carbon Dioxide (21.6-31.8) mmol/L BUN/Creatinine Ratio (12.00-20.00) Ratio POC Glucose (mg/dL) 256 H 192 H (75-99) mg/dL Ferritin (10.0-291.0) ng/mL Lactate Dehydrogenase (120-246) U/L C-Reactive Protein (0.0-0.8) mg/dL Procalcitonin 0.30 H (0.02-0.09) ng/mL 10/27/20 10/27/20 10/27/20 Range/Units 06:09 06:09 06:09 RDW 15.6 H (11.5-14.5) % Immature Gran # 0.11 H (0.00-0.04) X 10*3/uL Chloride 94 L (96-109) mmol/L Carbon Dioxide 35.0 H (21.6-31.8) mmol/L BUN/Creatinine Ratio 21.43 H (12.00-20.00) Ratio POC Glucose (mg/dL) (75-99) mg/dL Ferritin 629.1 H (10.0-291.0) ng/mL Lactate Dehydrogenase 339 H (120-246) U/L C-Reactive Protein 2.7 H (0.0-0.8) mg/dL Procalcitonin 0.22 H (0.02-0.09) ng/mL 10/27/20 10/27/20 Range/Units 07:07 11:18 RDW (11.5-14.5) % Immature Gran # (0.00-0.04) X 10*3/uL Chloride (96-109) mmol/L Carbon Dioxide (21.6-31.8) mmol/L BUN/Creatinine Ratio (12.00-20.00) Ratio POC Glucose (mg/dL) 101 H 179 H (75-99) mg/dL Ferritin (10.0-291.0) ng/mL Lactate Dehydrogenase (120-246) U/L C-Reactive Protein (0.0-0.8) mg/dL Procalcitonin (0.02-0.09) ng/mL Microbiology - Last 24 Hours (Table) 10/21/20 08:48 Blood Culture - Final Blood No Growth after 144 hours Assessment and Plan Plan: Assessment: #1. Acute on chronic hypoxic respiratory failure secondary to acute COVID 19 pneumonitis, influenza and RSV PCR were negative, started Remdesivir treatment on 10/21/2020, completed Remdesivir on 10/25/2020 #2. History of COPD #3. Elevated transaminases secondary to COVID 19 infection #4. Type 2 diabetes mellitus #5. History of obstructive sleep apnea syndrome #6. Dyslipidemia #7. History of degenerative joint disease #8. History of bipolar disorder Plan: Continue current medical treatment, continue same dose Lovenox, patient has completed Remdesivir treatment, continue Decadron, vitamin C D and zinc, today's chest x-ray shows some improvement in appearance of perihilar and basilar infiltrates. Provide incentive spirometer, encourage deep breathing and coughing, encouraged patient to sit up in the chair. Titrate FiO2, Airvo up to 60 L and FiO2 of 90% to keep O2 sat at 90% or better. We'll continue to closely follow. I performed a history & physical examination of the patient and discussed their management with my nurse practitioner, Melany Stanton. I reviewed the nurse practitioner's note and agree with the documented findings and plan of care. Lung sounds are positive for diminished breath sounds. The findings and the impression was discussed with the patient. I attest to the documentation by the nurse practitioner. Time with Patient: Less than 30
--- NOTE | 2020-10-27 16:51 | PN ---
PROGRESS NOTE DATE OF SERVICE: 10/27/2020 This 60-year-old woman who was admitted with bilateral COVID-19 pneumonia was significantly hypoxic. Patient is on AIRVO at this time. The patient is still having significant cough and sputum also. The patient has completed a course of remdesivir at this time. The patient still has slightly elevated inflammatory markers of COVID-19. The procalcitonin was also found to be 0.22. Past medical history reviewed. REVIEW OF SYSTEMS: CARDIOVASCULAR SYSTEM: No angina, palpitations. RESPIRATORY SYSTEM: As mentioned earlier. GI: As mentioned earlier. : No dysuria or retention. NERVOUS SYSTEM: No numbness, weakness. CURRENT MEDICATIONS: Tylenol, Ventolin, Abilify, vitamin C, Lipitor, Symbicort, Rocephin 1 gram, vitamin D3, Klonopin, Colcrys, Hexadrol, Lovenox, Lamictal, Tradjenta, Antivert. Doses are reviewed. PHYSICAL EXAMINATION: Patient is alert and oriented x3. Pulse 86, blood pressure 114/60, respirations 16, temperature 98.9, pulse ox 92% on 15 L AIRVO. HEENT: Conjunctivae normal. NECK: No jugular venous distention. CARDIOVASCULAR SYSTEM: S1, S2 muffled. RESPIRATORY SYSTEM: Breath sounds diminished at the bases. A few scattered rhonchi and crackles. ABDOMEN: Soft, non-tender. NERVOUS SYSTEM: No focal deficit. LABS: WBC 6.9, hemoglobin 13.5. Sodium 136, potassium 3.5 and glucose is 101. ASSESSMENT: 1. Acute bilateral COVID-19 interstitial pneumonia with acute hypoxic respiratory failure, on high-flow oxygen with possible sepsis, present on admission. 2. Elevated D-dimer. 3. Severe hypokalemia, improved. 4. Status post remdesivir. 5. Hyponatremia. 6. Elevated blood glucose with diabetes mellitus, type 2, uncontrolled with hyperglycemia. 7. History of asthma, chronic obstructive pulmonary disease. 8. Fibromyalgia. 9. Gastroesophageal reflux disease. 10.Hypertension. 11.Hyperlipidemia. 12.History of degenerative joint disease. 13.History of sleep apnea. 14.Chronic hypoxic respiratory failure, on 3 L nasal cannula. 15.Chronic bronchitis. 16.Obesity with body mass index of 34.3. 17.History of anxiety, bipolar, depression, schizoaffective disorder. 18.Remote history of nicotine dependence. 19.Hypomagnesemia. 20.Elevated inflammatory markers of COVID-19. 21.Increased AST, ALT. 22.Elevated procalcitonin. 23.FULL CODE. RECOMMENDATIONS AND DISCUSSION: I recommend to continue current medications, continue with the monitoring, symptomatic treatment. Otherwise at this time I would recommend continuing the bronchodilators. Continue with oxygenation. Continue with dexamethasone. Continue with the Lovenox. Continue the rest of the supplementation. Closely follow with Pulmonary. Prognosis extremely guarded because of multiple complex medical issues. Further recommendations to follow. MMODL / IJN: [id number] /
[2020-10-27 17:00] LABS: Glucose,Whole Blood 248 mg/dL (75-99)
--- NOTE | 2020-10-27 18:19 | PN ---
PROGRESS NOTE DATE OF SERVICE: 10/27/2020 REASON FOR FOLLOWUP: COVID-19 pneumonia. INTERVAL HISTORY: The patient is currently afebrile. The patient mentioned she is feeling better. She is breathing more comfortably. Still requiring high-flow nasal oxygen. No chest pain. No abdominal pain or diarrhea. PHYSICAL EXAMINATION: Blood pressure 114/60 with a pulse of 86, temperature 98.9. She is 92% on 15 L high- flow oxygen. General description is a middle-aged female lying in bed in no distress. RESPIRATORY SYSTEM: Unlabored breathing with decreased intensity of breath sounds. No wheeze. HEART: S1, S2. Regular rate and rhythm. ABDOMEN: Soft. No tenderness. LABS/IMAGING: Hemoglobin 13.5, white count 6.9, BUN of 15, creatinine 0.7. Chest x-ray: patchy perihilar infiltrate persists. DIAGNOSTIC IMPRESSION AND PLAN: Patient with acute COVID-19 pneumonia. This patient seems to have shown some clinical improvement. The patient is currently covered with dexamethasone, Lovenox, zinc; to continue along with respiratory support. No need for antibiotic therapy bacterial pneumonia. MMODL / IJN: [id number] /
[2020-10-27 20:57] LABS: Glucose,Whole Blood 137 mg/dL (75-99)
[2020-10-27] MEDS: ARIPiprazole 10 MG TAB PO SCH (21:23)
[2020-10-28] MEDS: ACETAMINOPHEN TAB 325 MG TAB PO PRN (00:12)
[2020-10-28] MEDS: ALBUTEROL HFA INHALER INHALATION SCH ×6 (04:29→23:37)
[2020-10-28] MEDS: oxyCODONE-APAP 10-325MG 1 EACH TAB PO PRN ×4 (05:28→23:11)
[2020-10-28 06:53] LABS: Glucose,Whole Blood 94 mg/dL (75-99)
[2020-10-28] MEDS: SYMBICORT 160-4.5 MCG INHALER INHALATION SCH ×2 (07:52→19:43)
[2020-10-28] MEDS: INSULIN ASPART (NovoLOG) 100 UNIT/ML VIAL SQ SCH ×4 (08:15→20:19)
[2020-10-28] MEDS: lamoTRIgine 100 MG TAB PO SCH ×2 (08:38→21:15)
[2020-10-28] MEDS: ENOXAPARIN 40 MG/0.4 ML SYRINGE SQ SCH ×2 (08:38→08:40)
[2020-10-28] MEDS: LINAGLIPTIN 5 MG TABLET PO SCH (08:39)
[2020-10-28] MEDS: CHOLECALCIFEROL 25 MCG (1000 IU) TABLET PO SCH (08:39)
[2020-10-28] MEDS: ZINC SULFATE 220 MG CAP PO SCH (08:39)
[2020-10-28] MEDS: ASCORBIC ACID 500 MG TAB PO SCH (08:39)
[2020-10-28] MEDS: PREGABALIN 100 MG CAP PO SCH ×2 (08:39→21:15)
[2020-10-28] MEDS: FAMOTIDINE 20 MG TAB PO SCH ×2 (08:40→21:15)
[2020-10-28] MEDS: ATORVASTATIN 20 MG TAB PO SCH (08:40)
[2020-10-28] MEDS: TOPIRAMATE 25 MG TAB PO SCH ×2 (08:40→21:15)
[2020-10-28] MEDS: OXcarbazepine 150 MG TAB PO SCH ×2 (08:40→21:40)
[2020-10-28] MEDS: POTASSIUM CHLORIDE ER 10 MEQ TAB.ER.PRT PO SCH ×3 (08:40→21:15)
[2020-10-28] MEDS: dexAMETHasone 2 MG TAB PO SCH (08:40)
[2020-10-28] MEDS: COLCHICINE 0.6 MG EACH PO SCH ×2 (08:40→21:15)
[2020-10-28] MEDS: clonazePAM 0.5 MG TAB PO SCH ×2 (08:40→21:15)
[2020-10-28] MEDS: CHLORTHALIDONE 25 MG TAB PO SCH (08:40)
[2020-10-28] MEDS: LOSARTAN 50 MG TAB PO SCH (08:41)
[2020-10-28 09:17] LABS: Basophils # (A) 0.02 X 10*3/uL (0.00-0.10); Basophils % (A) 0.3 %; Eosinophils # (A) 0.04 X 10*3/uL (0.04-0.35); Eosinophils % (A) 0.7 %; HCT 39.8 % (37.2-46.3); HGB 12.9 g/dL (12.0-15.0); Lymphocytes # (A) 1.01 X 10*3/uL (0.90-5.00); Lymphocytes % (A) 17.7 %; MCH 28.9 pg (27.0-32.0); MCHC 32.4 g/dL (32.0-37.0); Mean Platelet Volume 10.5 fL (9.5-12.2); Neutrophils # (A) 4.23 X 10*3/uL (1.80-7.70); Platelet Count 224 X 10*3/uL (140-440); RBC 4.47 X 10*6/uL (4.10-5.20); RDW 15.5 % (11.5-14.5); WBC 5.72 X 10*3/uL (4.50-10.00)
[2020-10-28 09:42] LABS: African American GFR (CKD) 91.6 (60.0-200.0); Anion Gap 8.8 mmol/L (4.00-12.00); BUN/Creat Ratio 18.75 Ratio (12.00-20.00); Calcium 8.5 mg/dL (8.7-10.3); Carbon Dioxide 31.2 mmol/L (21.6-31.8)
[2020-10-28] MEDS ORDERED: FUROSEMIDE 10 MG/ML 4 ML VIAL IV STA (09:53)
[2020-10-28 11:40] LABS: Glucose,Whole Blood 184 mg/dL (75-99)
--- NOTE | 2020-10-28 14:27 | P.PN ---
Subjective Progress Note Date: 10/28/20 Principal diagnosis: Shortness of breath. On 10/22/2020 patient seen in follow-up, she is awake and alert, she remains on 6 L of oxygen her pulse ox is 90-93%, she is breathing comfortably, although still having fever spikes, with a T-max of 101.8F this morning, today's day 2 o f Remdesivir, we added colchicine, she is on oral Decadron 6 mg daily, she is on prophylactic dose of Lovenox, in addition to vitamins. Today's labs have been reviewed, showing d-dimer of 0.85, CRP is down to 4.6, associated LDH value from today, her pro-calcitonin level was 0.27, her influenza and RSV screen were negative. On 10/23/2020 patient seen in follow-up on medical floor, she is awake and alert, oriented 3, she is wheezy, has a congested cough, she is currently on 2 L of oxygen her pulse ox is between 87-93%, she still having some low-grade fevers, today's chest x-ray showing patchy perihilar and basilar infiltrates without significant change. Patient remains on Remdesivir, today is day 3 of treatment, in addition to Decadron, prophylactic doses of Lovenox in her d-dimer remains low at 0.62, in addition to vitamins and colchicine. Her inflammatory markers are coming down, her procalcitonin level was not elevated to 0.27 On 10/26/2019 patient seen in follow-up on medical floor, she is currently on high flow oxygen per year flow at 50 L and FiO2 of 82%, and her pulse ox is 91%, she states his breathing comfortably, overall her breathing is better, she is feeling better, she's had that no fever or chills, hemodynamically stable, no chest discomfort. 0.9 normal saline is infusing at 20 ML per hour, chest x-ray today showed coarse perihilar and basilar infiltrates unchanged from prior study. She finished her Remdesivir treatment yesterday, she remains on bronchodilators, she remains on dexamethasone 6 mg daily, subcu Lovenox 40 mg twice daily, oral Pepcid, vitamin C D and zinc. Today's labs have been reviewed, CBC is within normal limits, d-dimer 0.49, renal profile is unremarkable, CO2 was mildly elevated at 32, the rest of electrolytes were within normal limits, LDH is 346, and CRP is 2.3. No Altered mentation, patient is tolerating oral diet, no nausea vomiting no abdominal pain On 10/27/2020 patient seen in follow-up on medical floor. Patient remains on high flow oxygen per Airvo with 50 L and FiO2 of 82%, and her pulse ox has been 87-89%, patient feels more dyspneic on today's exam, she did have a fever spike earlier today in the morning however it is not recorded. She is coughing, however her cough is dry, nonproductive. No chest pain. Today's chest x-ray shows patchy perihilar basilar infiltrates noted to be slightly improved. Tory ent remains on empiric antibiotics in the form of Rocephin, she is on 6 mg oral dose of Decadron on a daily basis, she is on Lovenox 40 mg twice a day, patient to vitamin C D and zinc. Her last d-dimer yesterday was 0.49, today's labs have been reviewed. Pro-calcitonin is 0.22 on today's labs, inflammatory markers are improving. Progress note dated 10/28/2020. 60-year-old female with a history of severe hypoxemic respiratory failure, secondary to COVID 19 pneumonia. Today, the patient was on AIRVO at 60 L/m, and 90% FiO2, as well as a partial rebreather mask. Her saturations were only in the mid to high 80s and for that reason, the patient was transferred to the intensive care unit for further monitoring and treatment. The patient really has not shown much improvement over the last couple of days. Her chest x-ray actually looked a bit worse to us, but we did give her some Lasix just in case some of what we were seeing related to fluid overload. White count was 5.72, hemoglobin 12.9, hematocrit 39.8, and platelet count 224,000. Sodium was 134, potassium 4, chloride 94, CO2 31, anion gap 9, BUN 15, and creatinine 0.8. Vital signs showed a blood pressure of 87/45, heart rate 79, respiratory rate 24, and a normal temperature. Medications were reviewed and were appropriate. Objective - Vital Signs Vital signs: Vital Signs Temp 101.5 F H 10/28/20 12:30 Pulse 93 10/28/20 13:00 Resp 21 10/28/20 13:00 BP 97/55 10/28/20 13:00 Pulse Ox 90 L 10/28/20 13:00 Intake & Output 10/27/20 10/28/20 10/28/20 18:59 06:59 18:59 Intake Total 476 20 Output Total 1999 Balance 476 -1980 Weight 84.822 kg Intake: IV 20 0.9NS 20 Oral 476 Output: Urine 1999 Other: Voiding Method Bedside Commode Indwelling Catheter # Voids 1 4 # Bowel Movements 1 - Exam Mild respiratory distress, oriented 3. The patient has AIRVO cannula in place as well as a partial rebreather. HEENT examination is grossly unremarkable. Mucous membranes are moist. No oral lesions. Neck supple. Full range of motion. No adenopathy thyromegaly or neck vein distention. Cardiovascular examination reveals regular rhythm rate. S1-S2 normal. No S3 or S4. No discernible murmur noted. Heart sounds are distant and heart rate is 79 bpm. Lungs reveal coarse bilateral rhonchi, and a few crackles. Breath sounds equal bilaterally but diminished throughout. No wheezes. Abdomen soft bowel sounds are heard. No masses or tenderness. Extremities are intact. No cyanosis clubbing or edema. Skin is without rash or lesion. Neurologic examination is brief but nonfocal. - Labs CBC & Chem 7: 10/28/20 06:16 10/28/20 06:16 Labs: Abnormal Lab Results - Last 24 Hours (Table) 10/27/20 10/27/20 10/28/20 Range/Units 16:58 20:55 06:16 RDW 15.5 H (11.5-14.5) % Sodium (135-145) mmol/L Chloride (96-109) mmol/L POC Glucose (mg/dL) 248 H 137 H (75-99) mg/dL Calcium (8.7-10.3) mg/dL 10/28/20 10/28/20 Range/Units 06:16 11:38 RDW (11.5-14.5) % Sodium 134 L (135-145) mmol/L Chloride 94 L (96-109) mmol/L POC Glucose (mg/dL) 184 H (75-99) mg/dL Calcium 8.5 L (8.7-10.3) mg/dL Microbiology - Last 24 Hours (Table) 10/21/20 08:48 Blood Culture - Final Blood No Growth after 144 hours Assessment and Plan Assessment: #1. Acute on chronic hypoxic respiratory failure secondary to acute COVID 19 pneumonitis, influenza and RSV PCR were negative, started Remdesivir treatment on 10/21/2020, completed Remdesivir on 10/25/2020 #2. History of COPD #3. Elevated transaminases secondary to COVID 19 infection #4. Type 2 diabetes mellitus #5. History of obstructive sleep apnea syndrome #6. Dyslipidemia #7. History of degenerative joint disease #8. History of bipolar disorder Plan: Plan dated 10/28/2020. Because of the patient's worsening oxygenation, the patient was transferred to the intensive care unit for further evaluation and management, as well as further monitoring. Additional recommendations and suggestions are forthcoming. The patient's on appropriate medications. We will continue to follow. These m edications include Decadron, vitamin C, vitamin D3, and zinc. remdesivir The patient also received and has completed remdesivir. Prognosis is guarded, and the patient may end up on mechanical ventilation if she does not improve. Time with Patient: Less than 30
[2020-10-28] MEDS ORDERED: VANCOMYCIN IV PER PHARMACY 1 EACH MISC MISCELLANE PRN (15:39)
[2020-10-28] MEDS: VANCOMYCIN 1,500 MG in SODIUM CHLORIDE 0.9% 250 ML IVPB SCH (16:08)
--- NOTE | 2020-10-28 16:17 | PN ---
PROGRESS NOTE DATE OF SERVICE: 10/28/2020 REASON FOR FOLLOWUP: Pneumonia. INTERVAL HISTORY: The patient had worsening of her respiratory status, became hypoxic and has been transferred to the ICU, currently on BiPAP. The patient also spiked a fever of 101.5 degrees Fahrenheit. The patient is borderline hypotensive with a systolic of 99. The patient she is awake and alert. Denies having any worsening chest pain or shortness of breath. Minimal cough. No abdominal pain or diarrhea. PHYSICAL EXAMINATION: Blood pressure is 99/49 with a pulse of 89, temperature of 101.5. She is 90% on 100% BiPAP. General description is a middle-aged female lying in bed in no distress. RESPIRATORY SYSTEM: Unlabored breathing with decreased intensity of breath sounds. No wheeze. HEART: S1, S2. Regular rate and rhythm. ABDOMEN: Soft. No tenderness. No guarding or rigidity. EXTREMITIES: No edema of the feet. LABS: Hemoglobin is 12.9, white count of 5.72, BUN of 15, creatinine 0.80. DIAGNOSTIC IMPRESSION AND PLAN: Patient with acute respiratory failure, multifactorial, in this patient who did have COVID-19 pneumonia and has completed her remdesivir therapy, now with significant worsening respiratory status with concern for possible secondary bacterial pneumonia versus cytokine storm. The patient has been brought to the ICU. May benefit from escalation of her steroids to q.6 hours. Will leave that to Pulmonary. Will obtain blood cultures, check inflammatory markers and broaden her antibiotics while waiting for her condition to stabilize and cultures to finalize. Overall prognosis remains guarded. Continue supportive care. MMODL / IJN: [id number] /
[2020-10-28 17:28] LABS: Glucose,Whole Blood 190 mg/dL (75-99)
[2020-10-28 20:10] LABS: Glucose,Whole Blood 149 mg/dL (75-99)
[2020-10-28] MEDS ORDERED: CEFEPIME 2 GM in SODIUM CHLORIDE 0.9% 100 ML IVPB ONE (21:00)
[2020-10-28] MEDS: ARIPiprazole 10 MG TAB PO SCH (21:15)
--- NOTE | 2020-10-28 21:19 | P.PN ---
Progress Note - Text Progress Note Date: 10/28/20 Chief Complaint: Short of breath History of presenting complaint: This is a 60-year-old patient who follows with Yajaira Barber. Chronic stable medical conditions include diabetes, fibromyalgia, GERD, hypertension, hyperlipidemia, osteoarthritis, obstructive sleep apnea. She is on 3 L of nasal cannula home. Night has been getting it more often lately. Diabetic peripheral neuropathy, obstructive sleep apnea does not use CPAP, chronic kidney disease, arthritis in multiple joints, bipolar schizoaffective disorder. Patient presents of 1 week of increasing shortness of breath. Cough. Slight phlegm. Has had fever for 2 days. Decrease appetite some headaches no loss of taste or smell. No diarrhea. Body aches all over. Patient tested for COVID 19 in the ER. Still somewhat tired rundown. Admitted with bilateral COVID 19 pneumonia, acute hypoxic respiratory failure, acute COPD exacerbation. Patient was started on dexamethasone, Lovenox, Remdesivir, vitamin C vitamin D and zinc. Pulmonary was consulted. Today-for last 5 days patient was being covered by my colleagues [facility]. Patient remained short of breath. Has been requiring BiPAP. Decreased oral intake.: I came in the room she was on a smart phone. Able to talk no short of breath. Review of systems: Was done for constitutional, cardiovascular, GI, pulmonary. relevant finding as above Active Medications Acetaminophen (Acetaminophen Tab 325 Mg Tab) 650 mg PO Q6HR PRN PRN Reason: Fever and/ or Pain Last Admin: 10/28/20 00:12 Dose: 650 mg Documented by: Albuterol Sulfate (Albuterol Hfa Inhaler) 4 puff INHALATION Q4H [facility] Last Admin: 10/28/20 19:33 Dose: 4 puff Documented by: Aripiprazole (Aripiprazole 10 Mg Tab) 10 mg PO HS [facility] Last Admin: 10/27/20 21:23 Dose: 10 mg Documented by: Aripiprazole (Aripiprazole 20 Mg Tab) 20 mg PO DAILY [facility] Last Admin: 10/28/20 08:40 Dose: 20 mg Documented by: Ascorbic Acid (Ascorbic Acid 500 Mg Tab) 500 mg PO DAILY [facility] Last Admin: 10/28/20 08:39 Dose: 500 mg Documented by: Atorvastatin Calcium (Atorvastatin 20 Mg Tab) 20 mg PO DAILY [facility] Last Admin: 10/28/20 08:40 Dose: 20 mg Documented by: Budesonide/Formoterol Fumarate (Symbicort 160-4.5 Mcg Inhaler) 2 puff INHALATIO N RT-BID [facility] Last Admin: 10/28/20 19:43 Dose: 2 puff Documented by: Chlorthalidone (Chlorthalidone 25 Mg Tab) 50 mg PO DAILY [facility] Last Admin: 10/28/20 08:40 Dose: 50 mg Documented by: Cholecalciferol (Cholecalciferol 25 Mcg (1000 Iu) Tablet) 100 mcg PO DAILY [facility] Last Admin: 10/28/20 08:39 Dose: 100 mcg Documented by: Clonazepam (Clonazepam 0.5 Mg Tab) 0.5 mg PO BID [facility] Last Admin: 10/28/20 08:40 Dose: 0.5 mg Documented by: Colchicine (Colchicine 0.6 Mg Each) 0.6 mg PO BID [facility] Last Admin: 10/28/20 08:40 Dose: 0.6 mg Documented by: Dexamethasone (Dexamethasone 2 Mg Tab) 6 mg PO DAILY [facility] Last Admin: 10/28/20 08:40 Dose: 6 mg Documented by: Enoxaparin Sodium (Enoxaparin 40 Mg/0.4 Ml Syringe) 40 mg SQ BID [facility] Last Admin: 10/28/20 08:40 Dose: 40 mg Documented by: Famotidine (Famotidine 20 Mg Tab) 20 mg PO BID [facility] Last Admin: 10/28/20 08:40 Dose: 20 mg Documented by: Cefepime HCl 2 gm/ Sodium (Chloride) 100 mls @ 25 mls/hr IVPB Q12HR RAE Cefepime HCl 2 gm/ Sodium (Chloride) 100 mls @ 200 mls/hr IVPB ONCE ONE Stop: 10/28/20 21:29 Vancomycin HCl 1,500 mg/ (Sodium Chloride) 250 mls @ 125 mls/hr IVPB Q16H [facility] Last Admin: 10/28/20 16:08 Dose: 125 mls/hr Documented by: Insulin Aspart (Insulin Aspart (Novolog) 100 Unit/Ml Vial) 0 unit SQ ACHS [facility]; Protocol Last Admin: 10/28/20 20:19 Dose: 1 unit Documented by: Lamotrigine (Lamotrigine 100 Mg Tab) 150 mg PO BID [facility] Last Admin: 10/28/20 08:38 Dose: 150 mg Documented by: Linagliptin (Linagliptin 5 Mg Tablet) 5 mg PO DAILY [facility] Last Admin: 10/28/20 08:39 Dose: 5 mg Documented by: Losartan Potassium (Losartan 50 Mg Tab) 50 mg PO DAILY [facility] Last Admin: 10/28/20 08:41 Dose: 50 mg Documented by: Meclizine HCl (Meclizine 25 Mg Tab) 25 mg PO Q8H PRN PRN Reason: Nausea And Vomiting Miscellaneous Information (Magnesium Replacement Protocol 1 Each Misc) 1 each MISCELLANE DAILY PRN; Protocol PRN Reason: Per Protocol Miscellaneous Information (Potassium Replacement Protocol 1 Each Misc) 1 each MISCELLANE DAILY PRN; Protocol PRN Reason: Per Protocol Oxcarbazepine (Oxcarbazepine 150 Mg Tab) 150 mg PO BID [facility] Last Admin: 10/28/20 08:40 Dose: 150 mg Documented by: Oxycodone/Acetaminophen (Oxycodone-Apap 10-325mg 1 Each Tab) 1 each PO Q6H PRN PRN Reason: Pain Last Admin: 10/28/20 16:08 Dose: 1 each Documented by: Potassium Chloride (Potassium Chloride Er 10 Meq Tab.Er.Prt) 10 meq PO TID [facility] Last Admin: 10/28/20 16:08 Dose: 10 meq Documented by: Pregabalin (Pregabalin 100 Mg Cap) 100 mg PO BID [facility] Last Admin: 10/28/20 08:39 Dose: 100 mg Documented by: Sumatriptan Succinate (Sumatriptan Succinate 50 Mg Tab) 100 mg PO BID PRN PRN Reason: Migraine Headache Topiramate (Topiramate 25 Mg Tab) 50 mg PO BID [facility] Last Admin: 10/28/20 08:40 Dose: 50 mg Documented by: Zinc Sulfate (Zinc Sulfate 220 Mg Cap) 220 mg PO DAILY [facility] Last Admin: 10/28/20 08:39 Dose: 220 mg Documented by: Past medical history to include: COPD, diabetes, fibromyalgia, GERD, hyperlipidemia, hypertension, obstructive sleep apnea does not use CPAP, home oxygen 3 L normal. Night, diabetic peripheral neuropathy, chronic kidney disease, bipolar depression, schizoaf fective disorder. Social history: Lives with her daughter. Disabled. Home oxygen. Smoked from 9065 through 2009. In the past used several street drugs but not so since 1989. Physical examination: VITAL SIGNS: 101.5, 90, 24, 97/55, 88% on BiPAP GENERAL: Reclining in bed, short of breath, using a smartphone Psychiatry: AO 3, mood and affect normal Neurological: Moving all 4 limbs. Rest of exam as per pulmonary and nursing INVESTIGATIONS, reviewed in the clinical context: October 28: D-dimer 0.78 CRP 169 pro-calcitonin 0.38 Chest x-ray from yesterday-scattered infiltrates Admission labs: White count 7.2 hemoglobin 15.1 decreased lymphocytes d-dimer 0.85 potassium 3.3 creatinine 0.90 glucose 205 EST 106 ALT 103 CRP 37.2 procalcitonin 0.27 Influenza type A, type B both not detected. RSV P/Cr-not detected. Coronavirus [PCR]-detected EKG tracing personally reviewed by me-normal sinus rhythm some slight ST segment changes Chest x-ray film personally reviewed by me-bilateral basilar infiltrates Assessment: -Bilateral COVID 19 pneumonia causing sepsis. Worsening -Acute COPD exacerbation in an [id number] to respond -acute hypoxic respiratory failure, worsening on BiPAP -Diabetes mellitus type 2 -Chronic fibromyalgia -GERD -Essential hypertension -Hyperlipidemia -Obstructive sleep apnea does not use CPAP -Diabetic peripheral neuropathy -Primary osteoarthritis of multiple joints Plan: IV cefepime is being added. For secondary infection. Also vancomycin. By pulmonary. We'll check a nasal swab for MRSA. Patient is requiring more oxygen. Other medications to continue. Follow d-dimer and procalcitonin. Follow with pulmonary
[2020-10-29] MEDS: ALBUTEROL HFA INHALER INHALATION SCH ×5 (03:44→20:04)
[2020-10-29 04:23] LABS: Basophils % (A) 0 %; Eosinophils % (A) 0 %; HGB 12.9 gm/dL (11.4-16.0); Lymphocytes # (A) 0.7 k/uL (1.0-4.8); Lymphocytes % (A) 12 %; MCH 29.2 pg (25.0-35.0); MCHC 33.8 g/dL (31.0-37.0); MCV 86.3 fL (80.0-100.0); Mean Platelet Volume 7.3; Monocytes # (A) 0.3 k/uL (0-1.0); Monocytes % (A) 6 %; Neutrophils # (A) 4.5 k/uL (1.3-7.7); Neutrophils % (A) 80 %; Platelet Count 217 k/uL (150-450); RDW 14.7 % (11.5-15.5); WBC 5.6 k/uL (3.8-10.6)
[2020-10-29 04:52] LABS: ALT 77 U/L (4-34); AST 72 U/L (14-36); African American GFR (CKD) >90 (>60 ml/min/1.73 sqM); Albumin 3.3 g/dL (3.5-5.0); Alkaline Phosphatase 71 U/L (38-126); Anion Gap 9 mmol/L; Blood Urea Nitrogen 16 mg/dL (7-17); Calcium 8.1 mg/dL (8.4-10.2); Carbon Dioxide 32 mmol/L (22-30); Chloride 90 mmol/L (98-107); Glucose 94 mg/dL (74-99); LDH 757 U/L (313-618); Non-African American GFR(CKD) 88 (>60 ml/min/1.73 sqM); Potassium 3.3 mmol/L (3.5-5.1); Sodium 131 mmol/L (137-145); Total Bilirubin 0.7 mg/dL (0.2-1.3); Total Protein 6.4 g/dL (6.3-8.2)
[2020-10-29 05:44] LABS: ABG Base Excess 7.6 mmol/L; ABG HCO3 32 mmol/L (21-25); ABG Oxygen Saturation 93.3 % (94-97); ABG PCO2 46 mmHg (35-45); ABG PH 7.45 (7.35-7.45); ABG PO2 65 mmHg (83-108); ABG TCO2 33 mmol/L (19-24); Allen Test Performed? Yes
[2020-10-29] MEDS: POTASSIUM CHLORIDE 10 MEQ in WATER FOR INJECTION 1 100ML.BAG IVPB SCH ×4 (05:45→10:59)
[2020-10-29 06:13] LABS: C Reactive Protein 179.6 mg/L (<10.0)
[2020-10-29] MEDS: INSULIN ASPART (NovoLOG) 100 UNIT/ML VIAL SQ SCH ×4 (06:58→21:30)
[2020-10-29 07:07] LABS: Glucose,Whole Blood 87 mg/dL (75-99)
--- NOTE | 2020-10-29 07:38 | XR ---
EXAMINATION TYPE: XR chest 1V portable DATE OF EXAM: 10/29/2020 COMPARISON: 10/27/2020 INDICATION: Covid TECHNIQUE: Single frontal view of the chest is obtained. FINDINGS: The heart size is normal. The pulmonary vasculature is normal. Bibasilar infiltrates are present. This is nonspecific. Atypical pneumonia would be within the differ ential. IMPRESSION: 1. Nonspecific bibasilar infiltrates similar to prior exam. Findings can be compatible with atypical pneumonia.
[2020-10-29] MEDS: SYMBICORT 160-4.5 MCG INHALER INHALATION SCH ×2 (08:49→20:04)
--- NOTE | 2020-10-29 08:52 | P.PN ---
Subjective Progress Note Date: 10/29/20 Principal diagnosis: Shortness of breath and fever This is a 60-year-old female with history of multiple medical problems including hypertension, type 2 diabetes, dyslipidemia, COPD, fibromyalgia, patient is also known to have history of obstructive sleep apnea, noncompliant with CPAP, patient uses mostly oxygen at night at 2 L. She is compliant with her oxygen for her presumptive obstructive sleep apnea syndrome and underlying COPD. Patient presented to the ER yesterday with 2 days history of shortness of breath, fever as high as 103, nonproductive cough, but she had no other symptoms, patient has chronic headaches, denies any loss of sensation of taste or smell. Denies any nausea vomiting abdominal pain melena or hematemesis. Patient denies exposure to Mayer virus, however she lives with her daughter was supposedly healthy at home. At any rate patient had a chest x-ray upon presentation to the ER that showed bibasilar infiltrates, the infiltrates were noted to be peripheral, and she had a PCR for covid 19 which came back positive. Patient was placed on 6 L nasal cannula, and her O2 saturations are 93%, she was later transitioned to 5 L and her O2 saturation remained at 95%. Considering her Covid 19 pneumonia, this consult was initiated. We saw the p atient on consultation, recommended that we start the patient on remdesivir, will also recommended starting the patient on the Covid 19 cocktail, and also started colchicine at 0.6 mg by mouth twice a day. Upon presentation the patient had a temp of 102.4, and her temp this morning is 98.9. Patient had a relatively normal CBC. Normal platelets. She had lymphopenia. And she had a relatively normal electrolytes. Inflammatory markers including LDH and C- reactive protein with 645 and 37.2 respectively. On 10/22/2020 patient seen in follow-up, she is awake and alert, she remains on 6 L of oxygen her pulse ox is 90-93%, she is breathing comfortably, although still having fever spikes, with a T-max of 101.8F this morning, today's day 2 of Remdesivir, we added colchicine, she is on oral Decadron 6 mg daily, she is on prophylactic dose of Lovenox, in addition to vitamins. Today's labs have been reviewed, showing d-dimer of 0.85, CRP is down to 4.6, associated LDH value from today, her pro-calcitonin level was 0.27, her influenza and RSV screen were negative. On 10/23/2020 patient seen in follow-up on medical floor, she is awake and alert, oriented 3, she is wheezy, has a congested cough, she is currently on 2 L of oxygen her pulse ox is between 87-93%, she still having some low-grade fevers, today's chest x-ray showing patchy perihilar and basilar infiltrates without significant change. Patient remains on Remdesivir, today is day 3 of treatment, in addition to Decadron, prophylactic doses of Lovenox in her d-dimer remains low at 0.62, in addition to vitamins and colchicine. Her inflammatory markers are coming down, her procalcitonin level was not elevated to 0.27 On 10/26/2019 patient seen in follow-up on medical floor, she is currently on high flow oxygen per year flow at 50 L and FiO2 of 82%, and her pulse ox is 91%, she states his breathing comfortably, overall her breathing is better, she is feeling better, she's had that no fever or chills, hemodynamically stable, no chest discomfort. 0.9 normal saline is infusing at 20 ML per hour, chest x-ray today showed coarse perihilar and basilar infiltrates unchanged from prior study. She finished her Remdesivir treatment yesterday, she remains on bronchodilators, she remains on dexamethasone 6 mg daily, subcu Lovenox 40 mg twice daily, oral Pepcid, vitamin C D and zinc. Today's labs have been reviewed, CBC is within normal limits, d-dimer 0.49, renal profile is unremarkable, CO2 was mildly elevated at 32, the rest of electrolytes were within normal limits, LDH is 346, and CRP is 2.3. No Altered mentation, patient is tolerating oral diet, no nausea vomiting no abdominal pain On 10/27/2020 patient seen in follow-up on medical floor. Patient remains on high flow oxygen per [employer] with 50 L and FiO2 of 82%, and her pulse ox has been 87-89%, patient feels more dyspneic on today's exam, she did have a fever spike earlier today in the morning however it is not recorded. She is coughing, however her cough is dry, nonproductive. No chest pain. Today's chest x-ray shows patchy perihilar basilar infiltrates noted to be slightly improved. Patient remains on empiric antibiotics in the form of Rocephin, she is on 6 mg oral dose of Decadron on a daily basis, she is on Lovenox 40 mg twice a day, patient to vitamin C D and zinc. Her last d-dimer yesterday was 0.49, today's labs have been reviewed. Pro-calcitonin is 0.22 on today's labs, inflammatory markers are improving. On 10/28/2020 patient seen in follow-up in intensive care unit. Patient was transferred from the medical surgical floor to the intensive care unit yesterday in view of worsening dyspnea and hypoxemia, patient is on BiPAP support with pressures of 12 and 6 and FiO2 of 100%. Patient was febrile in the last 24 hours, with a T-max of 101.5F. Low-grade fevers overnight. today's chest x-ray shows nonspecific bibasilar infiltrates similar to prior exam.this morning his blood gases revealed pO2 of 65 pCO2 46, and pH of 7.45 this was done on FiO2 100%, CBC was within normal limits except with a lymphocyte count which was low at 0.7, d-dimer today 0.65, sodium is 131, potassium 3.3, chloride is 90, CO2 is 32. CRP is up to 179, LDH is 757. patient continues on cefepime and vancomycin for empiric antibiotic coverage, Decadron and yesterday she received 1 dose of IV Lasix. Anticoagulation in the form of Lovenox 40 mg twice daily. Objective - Vital Signs Vital signs: Vital Signs Temp 99.4 F 10/29/20 04:00 Pulse 76 10/29/20 07:00 Resp 13 10/29/20 07:00 BP 140/62 10/29/20 07:00 Pulse Ox 86 L 10/29/20 07:00 Intake & Output 10/28/20 10/29/20 10/29/20 18:59 06:59 18:59 Intake Total 370 540 120 Output Total 2795 515 40 Balance -2425 25 80 Weight 84.822 kg 85.5 kg Intake: IV 120 440 120 0.9NS 120 240 20 Cefepime 2 gm In Sodium 100 Chloride 0.9% 100 ml @ 200 mls/hr IVPB ONCE ONE Rx#:[id number] Potassium Chloride 10 meq 100 100 In Water For Injection 1 100ml.bag @ 100 mls/hr IVPB Q1HR [facility] Rx#: [id number] Intake, IV Titration 250 Amount Vancomycin 1,500 mg In 250 Sodium Chloride 0.9% 250 ml @ 125 mls/hr IVPB Q16H [facility] Rx#:[id number] Oral 100 Output: Urine 2795 515 40 Other: Voiding Method Indwelling Catheter Indwelling Catheter - Exam GENERAL EXAM: Alert, pleasant, 60-year-old white female, on the BiPAP support with pressures of 12 and 6 and FiO2 of 100%. HEAD: Normocephalic/atraumatic. EYES: Normal reaction of pupils, equal size. Conjunctiva pink, sclera white. NOSE: Clear with pink turbinates. THROAT: No erythema or exudates. NECK: No masses, no JVD, no thyroid enlargement, no adenopathy. CHEST: No chest wall deformity. Symmetrical expansion. LUNGS: Equal air entry with no crackles, wheeze, rhonchi or dullness. CVS: Regular rate and rhythm, normal S1 and S2, no gallops, no murmurs, no rubs ABDOMEN: Soft, nontender. No hepatosplenomegaly, normal bowel sounds, no guarding or rigidity. EXTREMITIES: No clubbing, no edema, no cyanosis, 2+ pulses and upper and lower extremities. MUSCULOSKELETAL: Muscle strength and tone normal. SPINE: No scoliosis or deformity SKIN: No rashes CENTRAL NERVOUS SYSTEM: Alert and oriented -3. No focal deficits, tone is normal in all 4 extremities. PSYCHIATRIC: Alert and oriented -3. Appropriate affect. Intact judgment and insight. - Labs CBC & Chem 7: 10/29/20 04:00 10/29/20 03:31 Labs: Abnormal Lab Results - Last 24 Hours (Table) 10/28/20 10/28/20 10/28/20 Range/Units 06:16 06:16 11:38 RDW 15.5 H (11.5-14.5) % Lymphocytes # (1.0-4.8) k/uL D-Dimer (<0.60) mg/L FEU ABG pCO2 (35-45) mmHg ABG pO2 (83-108) mmHg ABG HCO3 (21-25) mmol/L ABG Total CO2 (19-24) mmol/L ABG O2 Saturation (94-97) % Sodium 134 L (135-145) mmol/L Potassium (3.5-5.1) mmol/L Chloride 94 L (96-109) mmol/L Carbon Dioxide (22-30) mmol/L POC Glucose (mg/dL) 184 H (75-99) mg/dL Calcium 8.5 L (8.7-10.3) mg/dL AST (14-36) U/L ALT (4-34) U/L Lactate Dehydrogenase (313-618) U/L C-Reactive Protein (<10.0) mg/L Albumin (3.5-5.0) g/dL Procalcitonin (0.02-0.09) ng/mL 10/28/20 10/28/20 10/28/20 Range/Units 15:41 15:41 15:41 RDW (11.5-14.5) % Lymphocytes # (1.0-4.8) k/uL D-Dimer 0.78 H (<0.60) mg/L FEU ABG pCO2 (35-45) mmHg ABG pO2 (83-108) mmHg ABG HCO3 (21-25) mmol/L ABG Total CO2 (19-24) mmol/L ABG O2 Saturation (94-97) % Sodium (135-145) mmol/L Potassium (3.5-5.1) mmol/L Chloride (96-109) mmol/L Carbon Dioxide (22-30) mmol/L POC Glucose (mg/dL) (75-99) mg/dL Calcium (8.7-10.3) mg/dL AST (14-36) U/L ALT (4-34) U/L Lactate Dehydrogenase 837 H (313-618) U/L C-Reactive Protein 169.0 H (<10.0) mg/L Albumin (3.5-5.0) g/dL Procalcitonin 0.38 H (0.02-0.09) ng/mL 10/28/20 10/28/20 10/29/20 Range/Units 17:26 20:08 03:31 RDW (11.5-14.5) % Lymphocytes # (1.0-4.8) k/uL D-Dimer (<0.60) mg/L FEU ABG pCO2 (35-45) mmHg ABG pO2 (83-108) mmHg ABG HCO3 (21-25) mmol/L ABG Total CO2 (19-24) mmol/L ABG O2 Saturation (94-97) % Sodium 131 L (135-145) mmol/L Potassium 3.3 L (3.5-5.1) mmol/L Chloride 90 L (96-109) mmol/L Carbon Dioxide 32 H (22-30) mmol/L POC Glucose (mg/dL) 190 H 149 H (75-99) mg/dL Calcium 8.1 L (8.7-10.3) mg/dL AST 72 H (14-36) U/L ALT 77 H (4-34) U/L Lactate Dehydrogenase 757 H (313-618) U/L C-Reactive Protein 179.6 H (<10.0) mg/L Albumin 3.3 L (3.5-5.0) g/dL Procalcitonin (0.02-0.09) ng/mL 10/29/20 10/29/20 10/29/20 Range/Units 04:00 04:00 05:32 RDW (11.5-14.5) % Lymphocytes # 0.7 L (1.0-4.8) k/uL D-Dimer 0.65 H (<0.60) mg/L FEU ABG pCO2 46 H (35-45) mmHg ABG pO2 65 L (83-108) mmHg ABG HCO3 32 H (21-25) mmol/L ABG Total CO2 33 H (19-24) mmol/L ABG O2 Saturation 93.3 L (94-97) % Sodium (135-145) mmol/L Potassium (3.5-5.1) mmol/L Chloride (96-109) mmol/L Carbon Dioxide (22-30) mmol/L POC Glucose (mg/dL) (75-99) mg/dL Calcium (8.7-10.3) mg/dL AST (14-36) U/L ALT (4-34) U/L Lactate Dehydrogenase (313-618) U/L C-Reactive Protein (<10.0) mg/L Albumin (3.5-5.0) g/dL Procalcitonin (0.02-0.09) ng/mL Assessment and Plan Plan: Assessment: #1. Acute on chronic hypoxic respiratory failure secondary to acute COVID 19 pneumonitis, influenza and RSV PCR were negative, started Remdesivir treatment on 10/21/2020, completed Remdesivir on 10/25/2020 On 10/28/2020 patient has been transferred to the ICU in view of worsening dyspnea and hypoxemia and was placed on BiPAP support with pressures of 12.6 on FiO2 100% #2. History of COPD #3. Elevated transaminases secondary to COVID 19 infection #4. Type 2 diabetes mellitus #5. History of obstructive sleep apnea syndrome #6. Dyslipidemia #7. History of degenerative joint disease #8. History of bipolar disorder Plan: continue current dose of Decadron, continue current dose Lovenox, continue BiPAP support, correct potassium per protocol, antibiotics per ID service recommendations.continue following d-dimer inflammatory markers, she close monitoring in the intensive care unit. I performed a history & physical examination of the patient and discussed their management with my nurse practitioner, Melany Stanton. I reviewed the nurse practitioner's note and agree with the documented findings and plan of care. Lung sounds are positive for diminished breath sounds. The findings and the impression was discussed with the patient. I attest to the documentation by the nurse practitioner. Time with Patient: Greater than 30
[2020-10-29] MEDS: ATORVASTATIN 20 MG TAB PO SCH (09:10)
[2020-10-29] MEDS: CHOLECALCIFEROL 25 MCG (1000 IU) TABLET PO SCH (09:10)
[2020-10-29] MEDS: CEFEPIME 2 GM in SODIUM CHLORIDE 0.9% 100 ML IVPB SCH ×2 (09:10→21:32)
[2020-10-29] MEDS: clonazePAM 0.5 MG TAB PO SCH ×2 (09:10→21:31)
[2020-10-29] MEDS: ASCORBIC ACID 500 MG TAB PO SCH (09:10)
[2020-10-29] MEDS: FAMOTIDINE 20 MG TAB PO SCH ×2 (09:11→21:31)
[2020-10-29] MEDS: LOSARTAN 50 MG TAB PO SCH (09:11)
[2020-10-29] MEDS: LINAGLIPTIN 5 MG TABLET PO SCH (09:11)
[2020-10-29] MEDS: lamoTRIgine 100 MG TAB PO SCH ×2 (09:11→21:31)
[2020-10-29] MEDS: COLCHICINE 0.6 MG EACH PO SCH ×2 (09:11→21:33)
[2020-10-29] MEDS: dexAMETHasone 2 MG TAB PO SCH (09:11)
[2020-10-29] MEDS: ENOXAPARIN 40 MG/0.4 ML SYRINGE SQ SCH ×2 (09:11→22:34)
[2020-10-29] MEDS: TOPIRAMATE 25 MG TAB PO SCH ×2 (09:12→21:32)
[2020-10-29] MEDS: OXcarbazepine 150 MG TAB PO SCH ×2 (09:12→21:33)
[2020-10-29] MEDS: PREGABALIN 100 MG CAP PO SCH ×2 (09:12→21:31)
[2020-10-29] MEDS: POTASSIUM CHLORIDE ER 10 MEQ TAB.ER.PRT PO SCH ×3 (09:12→21:31)
[2020-10-29] MEDS: ZINC SULFATE 220 MG CAP PO SCH (09:13)
[2020-10-29] MEDS: VANCOMYCIN 1,500 MG in SODIUM CHLORIDE 0.9% 250 ML IVPB SCH (10:59)
[2020-10-29 11:46] LABS: Glucose,Whole Blood 139 mg/dL (75-99)
--- NOTE | 2020-10-29 13:20 | PN ---
PROGRESS NOTE DATE OF SERVICE: 10/29/2020 REASON FOR FOLLOWUP: Pneumonia. INTERVAL HISTORY: The patient is currently afebrile. The patient remains to be on a BiPAP, sating around 86% to 87% . The patient though denies having any chest pain. Mentioned breathing slightly comfortably. Minimal cough. No abdominal pain. No diarrhea. PHYSICAL EXAMINATION: Blood pressure 115/50 with a pulse of 87, temperature 99.1. She is 87% on 100% BiPAP. General description is a middle-aged female up in the bed in no distress. RESPIRATORY SYSTEM: Unlabored breathing, decreased intensity of breath sounds. No wheeze. HEART: S1, S2. Regular rate and rhythm. ABDOMEN: Soft. No tenderness. LABS: Hemoglobin is 12.9, white count 5.6. D-dimer is 0.65. BUN of 16, creatinine 0.74. Liver enzymes mildly elevated. CRP is 179. Blood cultures currently pending. DIAGNOSTIC IMPRESSION AND PLAN: Patient with acute respiratory failure which is multifactorial in this patient who did have COVID-19 infection. This patient completed her remdesivir therapy subsequently with a new fever and worsening respiratory status. Concern for possible secondary bacterial pneumonia. Will wait for the procalcitonin to finalize. Continue cefepime and vancomycin and adjust antibiotic further on the basis of culture and clinical response. MMODL / IJN: [id number] /
[2020-10-29 17:49] LABS: Glucose,Whole Blood 180 mg/dL (75-99)
[2020-10-29] MEDS ORDERED: ARTIFICIAL TEARS-HYPROMELLOSE DROPS 15 ML BTL BOTH EYES PRN (17:56)
--- NOTE | 2020-10-29 19:29 | P.PN ---
Progress Note - Text Progress Note Date: 10/29/20 Chief Complaint: Short of breath History of presenting complaint: This is a 60-year-old patient who follows with Yajaira Barber. Chronic stable medical conditions include diabetes, fibromyalgia, GERD, hypertension, hyperlipidemia, osteoarthritis, obstructive sleep apnea. She is on 3 L of nasal cannula home. Night has been getting it more often lately. Diabetic peripheral neuropathy, obstructive sleep apnea does not use CPAP, chronic kidney disease, arthritis in multiple joints, bipolar schizoaffective disorder. Patient presents of 1 week of increasing shortness of breath. Cough. Slight phlegm. Has had fever for 2 days. Decrease appetite some headaches no loss of taste or smell. No diarrhea. Body aches all over. Patient tested for COVID 19 in the ER. Still somewhat tired rundown. Admitted with bilateral COVID 19 pneumonia, acute hypoxic respiratory failure, acute COPD exacerbation. Patient was started on dexamethasone, Lovenox, Remdesivir, vitamin C vitamin D and zinc. Pulmonary was consulted. Patient has been requiring BiPAP. On October 28 because of increasing oxygen requirement patient is moved to the ICU. Patient was started on IV cefepime and vancomycin. Today-ICU: patient on BiPAP. Awake. Short of breath. Reclining in bed Review of systems: Was done for constitutional, cardiovascular, GI, pulmonary. relevant finding as above Active Medications Acetaminophen (Acetaminophen Tab 325 Mg Tab) 650 mg PO Q6HR PRN PRN Reason: Fever and/ or Pain Last Admin: 10/28/20 00:12 Dose: 650 mg Documented by: Albuterol Sulfate (Albuterol Hfa Inhaler) 4 puff INHALATION Q4H [facility] Last Admin: 10/29/20 15:15 Dose: 4 puff Documented by: Aripiprazole (Aripiprazole 10 Mg Tab) 10 mg PO HS [facility] Last Admin: 10/28/20 21:15 Dose: 10 mg Documented by: Aripiprazole (Aripiprazole 20 Mg Tab) 20 mg PO DAILY [facility] Last Admin: 10/29/20 09:09 Dose: 20 mg Documented by: Artificial Tears (Artificial Tears-Hypromellose Drops 15 Ml Btl) 1 drops BOTH EYES QID PRN PRN Reason: Dry Eye(s) Last Admin: 10/29/20 18:47 Dose: 1 drops Documented by: Ascorbic Acid (Ascorbic Acid 500 Mg Tab) 500 mg PO DAILY [facility] Last Admin: 10/29/20 09:10 Dose: 500 mg Documented by: Atorvastatin Calcium (Atorvastatin 20 Mg Tab) 20 mg PO DAILY [facility] Last Admin: 10/29/20 09:10 Dose: 20 mg Documented by: Budesonide/Formoterol Fumarate (Symbicort 160-4.5 Mcg Inhaler) 2 puff INHALATION RT-BID [facility] Last Admin: 10/29/20 08:49 Dose: 2 puff Documented by: Cholecalciferol (Cholecalciferol 25 Mcg (1000 Iu) Tablet) 100 mcg PO DAILY [facility] Last Admin: 10/29/20 09:10 Dose: 100 mcg Documented by: Clonazepam (Clonazepam 0.5 Mg Tab) 0.5 mg PO BID [facility] Last Admin: 10/29/20 09:10 Dose: 0.5 mg Documented by: Colchicine (Colchicine 0.6 Mg Each) 0.6 mg PO BID [facility] Last Admin: 10/29/20 09:11 Dose: 0.6 mg Documented by: Dexamethasone (Dexamethasone 2 Mg Tab) 6 mg PO DAILY [facility] Last Admin: 10/29/20 09:11 Dose: 6 mg Documented by: Enoxaparin Sodium (Enoxaparin 40 Mg/0.4 Ml Syringe) 40 mg SQ BID [facility] Last Admin: 10/29/20 09:11 Dose: 40 mg Documented by: Famotidine (Famotidine 20 Mg Tab) 20 mg PO BID [facility] Last Admin: 10/29/20 09:11 Dose: 20 mg Documented by: Cefepime HCl 2 gm/ Sodium (Chloride) 100 mls @ 25 mls/hr IVPB Q12HR [facility] Last Admin: 10/29/20 09:10 Dose: 25 mls/hr Documented by: Vancomycin HCl 1,500 mg/ (Sodium Chloride) 250 mls @ 125 mls/hr IVPB Q16H [facility] Last Admin: 10/29/20 10:59 Dose: 125 mls/hr Documented by: Insulin Aspart (Insulin Aspart (Novolog) 100 Unit/Ml Vial) 0 unit SQ ACHS [facility]; Protocol Last Admin: 10/29/20 17:59 Dose: 2 unit Documented by: Lamotrigine (Lamotrigine 100 Mg Tab) 150 mg PO BID [facility] Last Admin: 10/29/20 09:11 Dose: 150 mg Documented by: Linagliptin (Linagliptin 5 Mg Tablet) 5 mg PO DAILY [facility] Last Admin: 10/29/20 09:11 Dose: 5 mg Documented by: Losartan Potassium (Losartan 50 Mg Tab) 50 mg PO DAILY [facility] Last Admin: 10/29/20 09:11 Dose: 50 mg Documented by: Meclizine HCl (Meclizine 25 Mg Tab) 25 mg PO Q8H PRN PRN Reason: Nausea And Vomiting Miscellaneous Information (Magnesium Replacement Protocol 1 Each Misc) 1 each MISCELLANE DAILY PRN; Protocol PRN Reason: Per Protocol Miscellaneous Information (Potassium Replacement Protocol 1 Each Misc) 1 each MISCELLANE DAILY PRN; Protocol PRN Reason: Per Protocol Oxcarbazepine (Oxcarbazepine 150 Mg Tab) 150 mg PO BID [facility] Last Admin: 10/29/20 09:12 Dose: 150 mg Documented by: Oxycodone/Acetaminophen (Oxycodone-Apap 10-325mg 1 Each Tab) 1 each PO Q6H PRN PRN Reason: Pain Last Admin: 10/28/20 23:11 Dose: 1 each Documented by: Potassium Chloride (Potassium Chloride Er 10 Meq Tab.Er.Prt) 10 meq PO TID [facility] Last Admin: 10/29/20 17:34 Dose: 10 meq Documented by: Pregabalin (Pregabalin 100 Mg Cap) 100 mg PO BID [facility] Last Admin: 10/29/20 09:12 Dose: 100 mg Documented by: Sumatriptan Succinate (Sumatriptan Succinate 50 Mg Tab) 100 mg PO BID PRN PRN Reason: Migraine Headache Topiramate (Topiramate 25 Mg Tab) 50 mg PO BID [facility] Last Admin: 10/29/20 09:12 Dose: 50 mg Documented by: Zinc Sulfate (Zinc Sulfate 220 Mg Cap) 220 mg PO DAILY [facility] Last Admin: 10/29/20 09:13 Dose: 220 mg Documented by: Past medical history to include: COPD, diabetes, fibromyalgia, GERD, hyperlipidemia, hypertension, obstructive sleep apnea does not use CPAP, home oxygen 3 L normal. Night, diabetic peripheral neuropathy, chronic kidney disease, bipolar depression, schizoaffective disorder. Social history: Lives with her daughter. Disabled. Home oxygen. Smoked from 9065 through 2009. In the past used several street drugs but not so since 1989. Physical examination: VITAL SIGNS: 99.8, 94, 21, 116/50, 89% on BiPAP GENERAL: Reclining in bed, short of breath, awake Psychiatry: AO 3, mood and affect normal Neurological: Moving all 4 limbs. Rest of exam as per pulmonary and nursing INVESTIGATIONS, reviewed in the clinical context: October 29: D-dimer 0.65 CRP 179 sodium 131 potassium 3.3 white count 32 October 28: D-dimer 0.78 CRP 169 pro-calcitonin 0.38 Chest x-ray from yesterday-scattered infiltrates Admission labs: White count 7.2 hemoglobin 15.1 decreased lymphocytes d-dimer 0.85 potassium 3.3 creatinine 0.90 glucose 205 EST 106 ALT 103 CRP 37.2 procalcitonin 0.27 Influenza type A, type B both not detected. RSV P/Cr-not detected. Coronavirus [PCR]-detected EKG tracing personally reviewed by me-normal sinus rhythm some slight ST segment changes Chest x-ray film personally reviewed by me-bilateral basilar infiltrates Assessment: -Bilateral COVID 19 pneumonia causing sepsis. Slow to respond -Acute COPD exacerbation in an [id number] to respond -acute hypoxic respiratory failure, requiring BiPAP-slow to respond -Diabetes mellitus type 2 -Chronic fibromyalgia -GERD -Essential hypertension -Hyperlipidemia -Obstructive sleep apnea does not use CPAP -Diabetic peripheral neuropathy -Primary osteoarthritis of multiple joints Plan: IV cefepime, vancomycin. Requiring BiPAP. Other medications to continue. Follow with machine fancy stitcher. Critical
[2020-10-29 20:34] LABS: Glucose,Whole Blood 141 mg/dL (75-99)
[2020-10-29] MEDS: ARIPiprazole 10 MG TAB PO SCH (21:33)
[2020-10-29] MEDS: oxyCODONE-APAP 10-325MG 1 EACH TAB PO PRN (21:45)
[2020-10-29 22:38] LABS: LD Isoenzymes 1 18 % (19-38); LD Isoenzymes 2 37 % (30-43); LD Isoenzymes 3 23 % (16-26); LD Isoenzymes 4 8 % (3-12); LD Isoenzymes 5 14 % (3-14); Lactacte Dehydrogenase(LD) ISO 299 U/L (120-250)
[2020-10-30] MEDS: ALBUTEROL HFA INHALER INHALATION SCH ×6 (00:06→21:33)
[2020-10-30] MEDS: VANCOMYCIN 1,500 MG in SODIUM CHLORIDE 0.9% 250 ML IVPB SCH ×2 (00:25→17:24)
[2020-10-30 04:49] LABS: Basophils % (A) 1 %; Eosinophils % (A) 0 %; HCT 40.3 % (34.0-46.0); HGB 13.4 gm/dL (11.4-16.0); Lymphocytes # (A) 0.5 k/uL (1.0-4.8); Lymphocytes % (A) 8 %; MCHC 33.1 g/dL (31.0-37.0); MCV 87.6 fL (80.0-100.0); Monocytes # (A) 0.3 k/uL (0-1.0); Monocytes % (A) 6 %; Neutrophils # (A) 4.7 k/uL (1.3-7.7); Neutrophils % (A) 84 %; Platelet Count 268 k/uL (150-450); RDW 14.7 % (11.5-15.5); WBC 5.7 k/uL (3.8-10.6)
[2020-10-30 05:00] LABS: ALT 66 U/L (4-34); AST 71 U/L (14-36); African American GFR (CKD) >90 (>60 ml/min/1.73 sqM); Albumin 3.2 g/dL (3.5-5.0); Alkaline Phosphatase 70 U/L (38-126); Anion Gap 8 mmol/L; Blood Urea Nitrogen 24 mg/dL (7-17); Calcium 8.5 mg/dL (8.4-10.2); Carbon Dioxide 30 mmol/L (22-30); Chloride 96 mmol/L (98-107); Glucose 103 mg/dL (74-99); Non-African American GFR(CKD) 80 (>60 ml/min/1.73 sqM); Potassium 3.8 mmol/L (3.5-5.1); Sodium 134 mmol/L (137-145); Total Bilirubin 0.7 mg/dL (0.2-1.3); Total Protein 6.6 g/dL (6.3-8.2)
[2020-10-30] MEDS: oxyCODONE-APAP 10-325MG 1 EACH TAB PO PRN ×2 (05:07→21:48)
[2020-10-30 05:14] LABS: C Reactive Protein 201.7 mg/L (<10.0)
[2020-10-30] MEDS: INSULIN ASPART (NovoLOG) 100 UNIT/ML VIAL SQ SCH ×4 (06:47→20:32)
[2020-10-30 06:48] LABS: Glucose,Whole Blood 101 mg/dL (75-99)
[2020-10-30] MEDS ORDERED: POTASSIUM CHLORIDE ER 20 MEQ TAB.ER PO SCH (07:00)
--- NOTE | 2020-10-30 07:38 | XR ---
EXAMINATION TYPE: XR chest 1V portable DATE OF EXAM: 10/30/2020 HISTORY: Shortness of breath. COMPARISON: 10/29/2020 TECHNIQUE: Single view of the chest is submitted. FINDINGS: Demonstrated are scattered senescent parenchymal change. Persistent but slightly improving infiltrates at the lung bases and midlung zones. The heart is stable. Hilar and mediastinal structures are within normal limits. Degenerative changes are seen of the dorsal spine. IMPRESSION: 1. Persistent but slightly improving infiltrates at the lung bases and midlung zones.
[2020-10-30] MEDS: ZINC SULFATE 220 MG CAP PO SCH (08:00)
[2020-10-30] MEDS: PREGABALIN 100 MG CAP PO SCH ×2 (08:00→20:03)
[2020-10-30] MEDS: OXcarbazepine 150 MG TAB PO SCH ×2 (08:00→20:03)
[2020-10-30] MEDS: POTASSIUM CHLORIDE ER 10 MEQ TAB.ER.PRT PO SCH ×3 (08:00→20:02)
[2020-10-30] MEDS: lamoTRIgine 100 MG TAB PO SCH ×2 (08:00→20:02)
[2020-10-30] MEDS: COLCHICINE 0.6 MG EACH PO SCH ×2 (08:03→20:03)
[2020-10-30] MEDS: CEFEPIME 2 GM in SODIUM CHLORIDE 0.9% 100 ML IVPB SCH ×2 (08:03→20:03)
[2020-10-30] MEDS: ASCORBIC ACID 500 MG TAB PO SCH (08:03)
[2020-10-30] MEDS: ATORVASTATIN 20 MG TAB PO SCH (08:03)
[2020-10-30] MEDS: methylPREDNISolone SOD SUCCI 125 MG/2 ML VIAL IV SCH ×4 (08:03→23:20)
[2020-10-30] MEDS: clonazePAM 0.5 MG TAB PO SCH ×2 (08:04→20:02)
[2020-10-30] MEDS: LOSARTAN 50 MG TAB PO SCH (08:04)
[2020-10-30] MEDS: ENOXAPARIN 40 MG/0.4 ML SYRINGE SQ SCH ×3 (08:04→20:01)
[2020-10-30] MEDS: LINAGLIPTIN 5 MG TABLET PO SCH (08:04)
[2020-10-30] MEDS: TOPIRAMATE 25 MG TAB PO SCH ×2 (08:04→20:02)
[2020-10-30] MEDS: FAMOTIDINE 20 MG TAB PO SCH ×2 (08:04→20:03)
[2020-10-30] MEDS: CHOLECALCIFEROL 25 MCG (1000 IU) TABLET PO SCH (08:04)
[2020-10-30 08:21] LABS: Prothrombin Time 10.5 sec (9.0-12.0)
[2020-10-30] MEDS: SYMBICORT 160-4.5 MCG INHALER INHALATION SCH ×2 (08:27→21:33)
--- NOTE | 2020-10-30 10:41 | P.PN ---
Subjective Progress Note Date: 10/30/20 Principal diagnosis: Shortness of breath. On 10/22/2020 patient seen in follow-up, she is awake and alert, she remains on 6 L of oxygen her pulse ox is 90-93%, she is breathing comfortably, although still having fever spikes, with a T-max of 101.8F this morning, today's day 2 o f Remdesivir, we added colchicine, she is on oral Decadron 6 mg daily, she is on prophylactic dose of Lovenox, in addition to vitamins. Today's labs have been reviewed, showing d-dimer of 0.85, CRP is down to 4.6, associated LDH value from today, her pro-calcitonin level was 0.27, her influenza and RSV screen were negative. On 10/23/2020 patient seen in follow-up on medical floor, she is awake and alert, oriented 3, she is wheezy, has a congested cough, she is currently on 2 L of oxygen her pulse ox is between 87-93%, she still having some low-grade fevers, today's chest x-ray showing patchy perihilar and basilar infiltrates without significant change. Patient remains on Remdesivir, today is day 3 of treatment, in addition to Decadron, prophylactic doses of Lovenox in her d-dimer remains low at 0.62, in addition to vitamins and colchicine. Her inflammatory markers are coming down, her procalcitonin level was not elevated to 0.27 On 10/26/2019 patient seen in follow-up on medical floor, she is currently on high flow oxygen per year flow at 50 L and FiO2 of 82%, and her pulse ox is 91%, she states his breathing comfortably, overall her breathing is better, she is feeling better, she's had that no fever or chills, hemodynamically stable, no chest discomfort. 0.9 normal saline is infusing at 20 ML per hour, chest x-ray today showed coarse perihilar and basilar infiltrates unchanged from prior study. She finished her Remdesivir treatment yesterday, she remains on bronchodilators, she remains on dexamethasone 6 mg daily, subcu Lovenox 40 mg twice daily, oral Pepcid, vitamin C D and zinc. Today's labs have been reviewed, CBC is within normal limits, d-dimer 0.49, renal profile is unremarkable, CO2 was mildly elevated at 32, the rest of electrolytes were within normal limits, LDH is 346, and CRP is 2.3. No Altered mentation, patient is tolerating oral diet, no nausea vomiting no abdominal pain On 10/27/2020 patient seen in follow-up on medical floor. Patient remains on high flow oxygen per Airvo with 50 L and FiO2 of 82%, and her pulse ox has been 87-89%, patient feels more dyspneic on today's exam, she did have a fever spike earlier today in the morning however it is not recorded. She is coughing, however her cough is dry, nonproductive. No chest pain. Today's chest x-ray shows patchy perihilar basilar infiltrates noted to be slightly improved. Tory ent remains on empiric antibiotics in the form of Rocephin, she is on 6 mg oral dose of Decadron on a daily basis, she is on Lovenox 40 mg twice a day, patient to vitamin C D and zinc. Her last d-dimer yesterday was 0.49, today's labs have been reviewed. Pro-calcitonin is 0.22 on today's labs, inflammatory markers are improving. Progress note dated 10/28/2020. 60-year-old female with a history of severe hypoxemic respiratory failure, secondary to COVID 19 pneumonia. Today, the patient was on AIRVO at 60 L/m, and 90% FiO2, as well as a partial rebreather mask. Her saturations were only in the mid to high 80s and for that reason, the patient was transferred to the intensive care unit for further monitoring and treatment. The patient really has not shown much improvement over the last couple of days. Her chest x-ray actually looked a bit worse to us, but we did give her some Lasix just in case some of what we were seeing related to fluid overload. White count was 5.72, hemoglobin 12.9, hematocrit 39.8, and platelet count 224,000. Sodium was 134, potassium 4, chloride 94, CO2 31, anion gap 9, BUN 15, and creatinine 0.8. Vital signs showed a blood pressure of 87/45, heart rate 79, respiratory rate 24, and a normal temperature. Medications were reviewed and were appropriate. Progress note dated 10/30/2020 60-year-old female with a history of severe hypoxemic respiratory failure. The patient has a history of COVID 19 pneumonia. Currently, the patient is on BiPAP with an IPAP of 12 and EPAP of 6, and 100%. Yesterday, the nurse had a conversation with the patient and before the end that shift, the patient had decided to be a DO NOT RESUSCITATE. Sometime after that, the patient changed her mind. In addition to BiPAP, the patient is on saline at 10 mL an hour. The patient was admitted on 10/21/2020. We did have a long discussion again today about CODE STATUS. The patient did agree to go on life support if necessary. She stated though that if it appeared that she was not going to improve, that she would want to come off of life support and be made comfortable. The patient would not agree to tracheostomy or PEG tube placement. She has not eaten anyt warner she's been on the BiPAP 17/04. Today, we'll place a PICC line, and start her on total parenteral nutrition. Today's temperature is 97.9, heart rate 95, respiratory rate 17, blood pressure 108/59, and saturations between 85-90%. White count is 5.7, hemoglobin 13.4, hematocrit 40.3, and platelet count 268,000. D-dimer is 0.92. Sodium 134, potassium 3.8, chloride 96, CO2 30, anion gap 8, BUN 24, and creatinine 0.8. LDH is 905, C-reactive protein is 202. Chest x-ray stable to minimally improved. Objective - Vital Signs Vital signs: Vital Signs Temp 98.7 F 10/30/20 04:00 Pulse 69 10/30/20 07:00 Resp 10 L 10/30/20 07:00 BP 125/60 10/30/20 07:00 Pulse Ox 90 L 10/30/20 07:00 Intake & Output 10/29/20 10/30/20 10/30/20 18:59 06:59 18:59 Intake Total 340 320 20 Output Total 545 1045 50 Balance -205 -725 -30 Weight 89.6 kg Intake: IV 340 320 20 0.9NS 240 220 20 Cefepime 2 gm In Sodium 100 Chloride 0.9% 100 ml @ 25 mls/hr IVPB Q12HR [facility] Rx #:[id number] Potassium Chloride 10 meq 100 In Water For Injection 1 100ml.bag @ 100 mls/hr IVPB Q1HR [facility] Rx#: [id number] Output: Urine 545 1045 50 Other: Voiding Method Indwelling Catheter Indwelling Catheter - Exam Mild respiratory distress, oriented 3. The patient's on BiPAP with settings of IPAP 12/EPAP 6, and 100%. HEENT examination is grossly unremarkable. Mucous membranes are moist. No oral lesions. Neck supple. Full range of motion. No adenopathy thyromegaly or neck vein distention. Cardiovascular examination reveals regular rhythm rate. S1-S2 normal. No S3 or S4. No discernible murmur noted. Heart sounds are distant and heart rate is 95 bpm. Lungs reveal coarse bilateral rhonchi, and a few crackles. Breath sounds equal bilaterally but diminished throughout. No wheezes. Abdomen soft bowel sounds are heard. No masses or tenderness. Extremities are intact. No cyanosis clubbing or edema. Skin is without rash or lesion. Neurologic examination is brief but nonfocal. - Labs CBC & Chem 7: 10/30/20 04:15 10/30/20 04:15 Labs: Abnormal Lab Results - Last 24 Hours (Table) 10/27/20 10/29/20 10/29/20 Range/Units 10:30 11:45 17:48 Lymphocytes # (1.0-4.8) k/uL D-Dimer (<0.60) mg/L FEU Sodium (137-145) mmol/L Chloride (98-107) mmol/L BUN (7-17) mg/dL Glucose (74-99) mg/dL POC Glucose (mg/dL) 139 H 180 H (75-99) mg/dL AST (14-36) U/L ALT (4-34) U/L Lactate Dehydrogenase (313-618) U/L LD Isoenzymes 299 H (120-250) U/L LD 1 18 L (19-38) % C-Reactive Protein (<10.0) mg/L Albumin (3.5-5.0) g/dL 10/29/20 10/30/20 10/30/20 Range/Units 20:32 04:15 04:15 Lymphocytes # 0.5 L (1.0-4.8) k/uL D-Dimer (<0.60) mg/L FEU Sodium 134 L (137-145) mmol/L Chloride 96 L (98-107) mmol/L BUN 24 H (7-17) mg/dL Glucose 103 H (74-99) mg/dL POC Glucose (mg/dL) 141 H (75-99) mg/dL AST 71 H (14-36) U/L ALT 66 H (4-34) U/L Lactate Dehydrogenase (313-618) U/L LD Isoenzymes (120-250) U/L LD 1 (19-38) % C-Reactive Protein (<10.0) mg/L Albumin 3.2 L (3.5-5.0) g/dL 10/30/20 10/30/20 10/30/20 Range/Units 04:15 04:15 06:46 Lymphocytes # (1.0-4.8) k/uL D-Dimer 0.92 H (<0.60) mg/L FEU Sodium (137-145) mmol/L Chloride (98-107) mmol/L BUN (7-17) mg/dL Glucose (74-99) mg/dL POC Glucose (mg/dL) 101 H (75-99) mg/dL AST (14-36) U/L ALT (4-34) U/L Lactate Dehydrogenase 905 H (313-618) U/L LD Isoenzymes (120-250) U/L LD 1 (19-38) % C-Reactive Protein 201.7 H (<10.0) mg/L Albumin (3.5-5.0) g/dL Microbiology - Last 24 Hours (Table) 10/28/20 15:41 Blood Culture - Preliminary Blood No Growth after 24 hours Assessment and Plan Assessment: #1. Acute on chronic hypoxic respiratory failure secondary to acute COVID 19 pneumonitis, status post remdesivir. #2. History of COPD #3. Elevated transaminases secondary to COVID 19 infection #4. Type 2 diabetes mellitus #5. History of obstructive sleep apnea syndrome #6. Dyslipidemia #7. History of degenerative joint disease #8. History of bipolar disorder Plan: Plan dated 10/30/2020. The patient remains on all appropriate medications. Currently, she is on BiPAP, at 100%. IPAP is 12 and EPAP of 6. She's getting saline at 10 mL an hour. A PICC line will be placed. She'll get TPN. Patient has not been able to take any nutrition orally because of her high oxygen requirements. We had a conversation today about CODE STATUS. The patient does agree to intubation and mechanical ventilation for a short period of time anyway. If it appears that she is not going to improve, she would not want a tracheostomy and/or a PEG tube. The patient would like to be taken off of life support and just be made comfortable. Time with Patient: Greater than 30
[2020-10-30 11:59] LABS: Glucose,Whole Blood 150 mg/dL (75-99)
[2020-10-30 12:43] LABS: Ionized Calcium 4.9 mg/dL (4.5-5.3)
[2020-10-30] MEDS ORDERED: IV FLUID CONTINUATION 1,000 ML IV ONE (12:59)
[2020-10-30 13:06] LABS: Magnesium 2.2 mg/dL (1.6-2.3)
[2020-10-30] MEDS ORDERED: LIDOCAINE 1% INJ 10MG/ML (20 ML MDV) SQ ONE (13:08)
--- NOTE | 2020-10-30 13:40 | XR ---
EXAMINATION TYPE: XR chest 1V portable DATE OF EXAM: 10/30/2020 HISTORY: Shortness of breath. COMPARISON: 10/30/2020 TECHNIQUE: Single view of the chest is submitted. FINDINGS: Demonstrated are scattered senescent parenchymal change. Persistent reticulonodular infiltrates throughout both lungs greatest at the lung bases. Left-sided P ICC line with its distal tip overlying the SVC. No evidence for pneumothorax. The heart is stable. Hilar and mediastinal structures are within normal limits. Degenerative changes are seen of the dorsal spine. IMPRESSION: 1. Persistent reticulonodular infiltrates throughout both lungs greatest at the lung bases. Left-leyda ed PICC line with its distal tip overlying the SVC. No evidence for pneumothorax.
[2020-10-30] MEDS ORDERED: FAT EMULSION 20% 250 ML IV SCH (15:00)
[2020-10-30] MEDS ORDERED: MVI, ADULT NO.4 WITH VIT K 10 ML, TRACE (CONC-1ML/DOSE) 1 ML in AMINO ACID 5%-D15W+LYTE... IV SCH ×3 (15:00)
[2020-10-30] MEDS: FAT EMULSION 20% 250 ML IV SCH (15:27)
--- NOTE | 2020-10-30 15:29 | PN ---
PROGRESS NOTE DATE OF SURGERY: 10/30/2020 REASON FOR FOLLOWUP: Pneumonia. INTERVAL HISTORY: The patient is currently afebrile. The patient remains BiPAP-dependent. The patient denies having any chest pain, though. Minimal cough. No nausea. No vomiting. No abdominal pain or diarrhea. PHYSICAL EXAMINATION: Blood pressure 107/82 with a pulse of 86, temperature 98.4. She is 90% on BiPAP. General description is a middle-aged female lying in bed in no distress. RESPIRATORY SYSTEM: Unlabored breathing with decreased intensity of breath sounds. No wheeze. HEART: S1, S2. Regular rate and rhythm. ABDOMEN: Soft. No tenderness. LABS: Hemoglobin is 13.4, white count 5.7, creatinine 0.80. Blood culture has been negative. DIAGNOSTIC IMPRESSION AND PLAN: Patient with pneumonia in this patient initially diagnosed with COVID-19. She completed her remdesivir therapy, now with significant worsening and concern for possible secondary bacterium. Procalcitonin was ordered and was elevated at 0.38. We will keep the patient on cefepime and vancomycin. Try to obtain a sputum sample and monitor her clinical course closely. Continue with supportive care. MMODL / IJN: [id number] /
--- NOTE | 2020-10-30 16:30 | IR ---
EXAMINATION TYPE: IR cvc insert >=5 years DATE OF EXAM: 10/30/2020 COMPARISON: NONE HISTORY: Needs long-term intravenous access for total parenteral nutrition FINDINGS: Maximal barrier technique was utilized. Hand hygiene obtained with soap and water and alco hol-based hand rub. The skin overlying the left basilic vein was localized with ultrasound and noted to be compressible and patent by ultrasound. An ultrasound image was obtained [facility]. Sterile technique utilized with the ultrasound machine. The skin overlying was prepped an d draped and Lidocaine used for local anesthesia. A skin antoine was made with a scalpel. Access was g ained to the vein under direct ultrasound guidance with a 21-gauge needle and a 0.018 inch wire was a dvanced. Access site was dilated with a peel-away sheath and the catheter tailored to length. Mojgan ter advanced centrally and a post procedure chest x-ray verified placement. Catheter was fixed to th e skin and a sterile dressing placed. Hemostasis achieved and the catheter was aspirated and flushed with sterile saline. The patient remained in stable condition. IMPRESSION: STATUS POST ULTRASOUND GUIDED PICC LINE PLACEMENT, READY FOR USE. THIS PROCEDURE WAS PER FORMED BY THE UNDERSIGNED.
[2020-10-30 17:09] LABS: Glucose,Whole Blood 218 mg/dL (75-99)
--- NOTE | 2020-10-30 19:20 | P.PN ---
Progress Note - Text Progress Note Date: 10/30/20 Chief Complaint: Short of breath History of presenting complaint: This is a 60-year-old patient who follows with Yajaira Barber. Chronic stable medical conditions include diabetes, fibromyalgia, GERD, hypertension, hyperlipidemia, osteoarthritis, obstructive sleep apnea. She is on 3 L of nasal cannula home. Night has been getting it more often lately. Diabetic peripheral neuropathy, obstructive sleep apnea does not use CPAP, chronic kidney disease, arthritis in multiple joints, bipolar schizoaffective disorder. Patient presents of 1 week of increasing shortness of breath. Cough. Slight phlegm. Has had fever for 2 days. Decrease appetite some headaches no loss of taste or smell. No diarrhea. Body aches all over. Patient tested for COVID 19 in the ER. Still somewhat tired rundown. Admitted with bilateral COVID 19 pneumonia, acute hypoxic respiratory failure, acute COPD exacerbation. Patient was started on dexamethasone, Lovenox, Remdesivir, vitamin C vitamin D and zinc. Pulmonary was consulted. Patient has been requiring BiPAP. On October 28 because of increasing oxygen requirement patient is moved to the ICU. Patient was started on IV cefepime and vancomycin. Today-ICU: Remains on BiPAP at all times. Not able to take oral intake because of the same. Desaturates rapidly. PICC line was placed earlier today. Feeding purposes. Short of breath. Some cough. Review of systems: Was done for constitutional, cardiovascular, GI, pulmonary. relevant finding as above Active Medications Acetaminophen (Acetaminophen Tab 325 Mg Tab) 650 mg PO Q6HR PRN PRN Reason: Fever and/ or Pain Last Admin: 10/28/20 00:12 Dose: 650 mg Documented by: Albuterol Sulfate (Albuterol Hfa Inhaler) 4 puff INHALATION Q4H [facility] Last Admin: 10/30/20 15:36 Dose: 4 puff Documented by: Aripiprazole (Aripiprazole 10 Mg Tab) 10 mg PO HS [facility] Last Admin: 10/29/20 21:33 Dose: 10 mg Documented by: Aripiprazole (Aripiprazole 20 Mg Tab) 20 mg PO DAILY [facility] Last Admin: 10/30/20 08:03 Dose: 20 mg Documented by: Artificial Tears (Artificial Tears-Hypromellose Drops 15 Ml Btl) 1 drops BOTH EYES QID PRN PRN Reason: Dry Eye(s) Last Admin: 10/29/20 18:47 Dose: 1 drops Documented by: Ascorbic Acid (Ascorbic Acid 500 Mg Tab) 500 mg PO DAILY [facility] Last Admin: 10/30/20 08:03 Dose: 500 mg Documented by: Atorvastatin Calcium (Atorvastatin 20 Mg Tab) 20 mg PO DAILY [facility] Last Admin: 10/30/20 08:03 Dose: 20 mg Documented by: Budesonide/Formoterol Fumarate (Symbicort 160-4.5 Mcg Inhaler) 2 puff INHALATION RT-BID [facility] Last Admin: 10/30/20 08:27 Dose: 2 puff Documented by: Cholecalciferol (Cholecalciferol 25 Mcg (1000 Iu) Tablet) 100 mcg PO DAILY [facility] Last Admin: 10/30/20 08:04 Dose: 100 mcg Documented by: Clonazepam (Clonazepam 0.5 Mg Tab) 0.5 mg PO BID [facility] Last Admin: 10/30/20 08:04 Dose: 0.5 mg Documented by: Colchicine (Colchicine 0.6 Mg Each) 0.6 mg PO BID [facility] Last Admin: 10/30/20 08:03 Dose: 0.6 mg Documented by: Enoxaparin Sodium (Enoxaparin 40 Mg/0.4 Ml Syringe) 40 mg SQ BID [facility] Last Admin: 10/30/20 13:57 Dose: 40 mg Documented by: Famotidine (Famotidine 20 Mg Tab) 20 mg PO BID [facility] Last Admin: 10/30/20 08:04 Dose: 20 mg Documented by: Cefepime HCl 2 gm/ Sodium (Chloride) 100 mls @ 25 mls/hr IVPB Q12HR [facility] Last Admin: 10/30/20 08:03 Dose: 25 mls/hr Documented by: Vancomycin HCl 1,500 mg/ (Sodium Chloride) 250 mls @ 125 mls/hr IVPB Q16H [facility] Last Admin: 10/30/20 17:24 Dose: 125 mls/hr Documented by: Parenteral Vitamin Supplement 10 ml/ Chromium/Copper/Manganese/Seleni/Zn 1 ml/Amino Ac/Electrol/Dextrose/Calcium 1,011 mls @ 30 mls/hr IV .Q24H [facility] Stop: 10/31/20 14:59 Last Admin: 10/30/20 15:27 Dose: 30 mls/hr Documented by: Amino Ac/Electrol/Dextrose/Calcium (Clinimix E 5%-D15% Solution) 1,000 mls @ 60 mls/hr IV .BY DURATION [facility] Parenteral Vitamin Supplement 10 ml/ Chromium/Copper/Manganese/Seleni/Zn 1 ml/Amino Ac/Electrol/Dextrose/Calcium 1,011 mls @ 60 mls/hr IV .BY DURATION [facility] Fat Emulsion Intravenous (Lipids 20%) 250 mls @ 20.833 mls/hr IV MoWeFr [facility] Last Admin: 10/30/20 15:27 Dose: 20.833 mls/hr Documented by: Insulin Aspart (Insulin Aspart (Novolog) 100 Unit/Ml Vial) 0 unit SQ ACHS [facility]; Protocol Last Admin: 10/30/20 17:24 Dose: 7 unit Documented by: Lamotrigine (Lamotrigine 100 Mg Tab) 150 mg PO BID [facility] Last Admin: 10/30/20 08:00 Dose: 150 mg Documented by: Linagliptin (Linagliptin 5 Mg Tablet) 5 mg PO DAILY [facility] Last Admin: 10/30/20 08:04 Dose: 5 mg Documented by: Losartan Potassium (Losartan 50 Mg Tab) 50 mg PO DAILY [facility] Last Admin: 10/30/20 08:04 Dose: 50 mg Documented by: Meclizine HCl (Meclizine 25 Mg Tab) 25 mg PO Q8H PRN PRN Reason: Nausea And Vomiting Methylprednisolone Sodium Succinate (Methylprednisolone Sod Succi 125 Mg/2 Ml Vial) 60 mg IV Q6HR [facility] Last Admin: 10/30/20 17:27 Dose: 60 mg Documented by: Miscellaneous Information (Magnesium Replacement Protocol 1 Each Misc) 1 each MISCELLANE DAILY PRN; Protocol PRN Reason: Per Protocol Miscellaneous Information (Potassium Replacement Protocol 1 Each Misc) 1 each MISCELLANE DAILY PRN; Protocol PRN Reason: Per Protocol Miscellaneous Information (Vancomycin Trough Due 1 Each Misc) 0 each MISCELLANE DIRECTED ONE Stop: 10/31/20 07:01 Oxcarbazepine (Oxcarbazepine 150 Mg Tab) 150 mg PO BID [facility] Last Admin: 10/30/20 08:00 Dose: 150 mg Documented by: Oxycodone/Acetaminophen (Oxycodone-Apap 10-325mg 1 Each Tab) 1 each PO Q6H PRN PRN Reason: Pain Last Admin: 10/30/20 05:07 Dose: 1 each Documented by: Potassium Chloride (Potassium Chloride Er 10 Meq Tab.Er.Prt) 10 meq PO TID [facility] Last Admin: 10/30/20 17:24 Dose: 10 meq Documented by: Pregabalin (Pregabalin 100 Mg Cap) 100 mg PO BID [facility] Last Admin: 10/30/20 08:00 Dose: 100 mg Documented by: Sumatriptan Succinate (Sumatriptan Succinate 50 Mg Tab) 100 mg PO BID PRN PRN Reason: Migraine Headache Topiramate (Topiramate 25 Mg Tab) 50 mg PO BID [facility] Last Admin: 10/30/20 08:04 Dose: 50 mg Documented by: Zinc Sulfate (Zinc Sulfate 220 Mg Cap) 220 mg PO DAILY [facility] Last Admin: 10/30/20 08:00 Dose: 220 mg Documented by: Past medical history to include: COPD, diabetes, fibromyalgia, GERD, hyperlipidemia, hypertension, obstructive sleep apnea does not use CPAP, home oxygen 3 L normal. Night, diabetic peripheral neuropathy, chronic kidney disease, bipolar depression, schizoaffective disorder. Social history: Lives with her daughter. Disabled. Home oxygen. Smoked from 9065 through 2009. In the past used several street drugs but not so since 1989. Physical examination: VITAL SIGNS: 98.6, 89, 19, 97/47, 86% on BiPAP GENERAL: Reclining in bed, short of breath, awake Psychiatry: AO 3, mood and affect normal Neurological: Moving all 4 limbs. Rest of exam as per pulmonary and nursing INVESTIGATIONS, reviewed in the clinical context: October 30: CRP 201.7 October 29: D-dimer 0.65 CRP 179 sodium 131 potassium 3.3 white count October 28: D-dimer 0.78 CRP 169 pro-calcitonin 0.38 Chest x-ray from yesterday-scattered infiltrates Admission labs: White count 7.2 hemoglobin 15.1 decreased lymphocytes d-dimer 0.85 potassium 3.3 creatinine 0.90 glucose 205 EST 106 ALT 103 CRP 37.2 procalcitonin 0.27 Influenza type A, type B both not detected. RSV P/Cr-not detected. Coronavirus [PCR]-detected EKG tracing personally reviewed by me-normal sinus rhythm some slight ST segment changes Chest x-ray film personally reviewed by me-bilateral basilar infiltrates Assessment: -Bilateral COVID 19 pneumonia causing sepsis. Slow to respond -Acute COPD exacerbation in an [id number] to respond -acute hypoxic respiratory failure, requiring BiPAP-slow to respond -Diabetes mellitus type 2 -Chronic fibromyalgia -GERD -Essential hypertension -Hyperlipidemia -Obstructive sleep apnea does not use CPAP -Diabetic peripheral neuropathy -Primary osteoarthritis of multiple joints Plan: IV cefepime, vancomycin. Requiring BiPAP-at all times. PICC line was placed to start peripheral nutrition.. TPN and lipids ordered.
[2020-10-30] MEDS: ARIPiprazole 10 MG TAB PO SCH (20:02)
[2020-10-30 20:20] LABS: Glucose,Whole Blood 203 mg/dL (75-99)
[2020-10-31] MEDS: ALBUTEROL HFA INHALER INHALATION SCH ×6 (00:58→19:23)
[2020-10-31] MEDS: methylPREDNISolone SOD SUCCI 125 MG/2 ML VIAL IV SCH ×4 (05:51→23:13)
[2020-10-31 05:58] LABS: Glucose,Whole Blood 211 mg/dL (75-99)
[2020-10-31] MEDS: INSULIN ASPART (NovoLOG) 100 UNIT/ML VIAL SQ SCH ×5 (05:59→23:31)
[2020-10-31] MEDS: clonazePAM 0.5 MG TAB PO SCH ×2 (06:29→20:05)
[2020-10-31] MEDS ORDERED: VANCOMYCIN TROUGH DUE 1 EACH MISC MISCELLANE ONE (07:00)
--- NOTE | 2020-10-31 07:28 | XR ---
EXAMINATION TYPE: XR chest 1V portable DATE OF EXAM: 10/31/2020 HISTORY: Shortness of breath. COMPARISON: 10/30/2020 TECHNIQUE: Single view of the chest is submitted. FINDINGS: Demonstrated are scattered senescent parenchymal change. Reticulonodular infiltrates throughout both lung pool are essentially unchanged. The heart is stable. Hilar and mediastinal structures are within normal limits. Degenerative changes are seen of the dorsal spine. IMPRESSION: 1. Reticulonodular infiltrates throughout both lung pool are essentially unchanged.
[2020-10-31] MEDS: VANCOMYCIN 1,500 MG in SODIUM CHLORIDE 0.9% 250 ML IVPB SCH ×2 (07:48→17:37)
[2020-10-31 07:54] LABS: Basophils % (A) 0 %; Eosinophils % (A) 0 %; HCT 40.5 % (34.0-46.0); HGB 13.5 gm/dL (11.4-16.0); Lymphocytes # (A) 0.3 k/uL (1.0-4.8); Lymphocytes % (A) 4 %; MCH 28.9 pg (25.0-35.0); MCHC 33.4 g/dL (31.0-37.0); MCV 86.6 fL (80.0-100.0); Mean Platelet Volume 6.8; Monocytes # (A) 0.4 k/uL (0-1.0); Monocytes % (A) 5 %; Neutrophils # (A) 6.7 k/uL (1.3-7.7); Neutrophils % (A) 89 %; Platelet Count 283 k/uL (150-450); RBC 4.68 m/uL (3.80-5.40); RDW 14.6 % (11.5-15.5); WBC 7.5 k/uL (3.8-10.6)
[2020-10-31 08:11] LABS: ALT 62 U/L (4-34); AST 64 U/L (14-36); African American GFR (CKD) >90 (>60 ml/min/1.73 sqM); Albumin 3.2 g/dL (3.5-5.0); Alkaline Phosphatase 70 U/L (38-126); Anion Gap 8 mmol/L; Blood Urea Nitrogen 23 mg/dL (7-17); Calcium 8.7 mg/dL (8.4-10.2); Carbon Dioxide 27 mmol/L (22-30); Chloride 99 mmol/L (98-107); Creatine Kinase 55 U/L (30-135); Glucose 156 mg/dL (74-99); LDH 906 U/L (313-618); Magnesium 2.2 mg/dL (1.6-2.3); Non-African American GFR(CKD) >90 (>60 ml/min/1.73 sqM); Potassium 3.8 mmol/L (3.5-5.1); Sodium 134 mmol/L (137-145); Total Bilirubin 0.6 mg/dL (0.2-1.3); Total Protein 6.4 g/dL (6.3-8.2)
[2020-10-31] MEDS: SYMBICORT 160-4.5 MCG INHALER INHALATION SCH ×2 (08:21→19:23)
[2020-10-31] MEDS: lamoTRIgine 100 MG TAB PO SCH ×2 (08:44→20:06)
[2020-10-31] MEDS: ASCORBIC ACID 500 MG TAB PO SCH (08:44)
[2020-10-31] MEDS: CHOLECALCIFEROL 25 MCG (1000 IU) TABLET PO SCH (08:44)
[2020-10-31] MEDS: oxyCODONE-APAP 10-325MG 1 EACH TAB PO PRN ×3 (08:45→21:18)
[2020-10-31] MEDS: FAMOTIDINE 20 MG TAB PO SCH ×2 (08:45→20:06)
[2020-10-31] MEDS: ZINC SULFATE 220 MG CAP PO SCH (08:45)
[2020-10-31] MEDS: LOSARTAN 50 MG TAB PO SCH (08:45)
[2020-10-31] MEDS: ATORVASTATIN 20 MG TAB PO SCH (08:45)
[2020-10-31] MEDS: POTASSIUM CHLORIDE ER 10 MEQ TAB.ER.PRT PO SCH ×3 (08:45→20:05)
[2020-10-31] MEDS: PREGABALIN 100 MG CAP PO SCH ×2 (08:45→20:06)
[2020-10-31] MEDS: ENOXAPARIN 40 MG/0.4 ML SYRINGE SQ SCH ×2 (08:46→20:10)
[2020-10-31] MEDS: CEFEPIME 2 GM in SODIUM CHLORIDE 0.9% 100 ML IVPB SCH ×2 (08:46→20:04)
[2020-10-31] MEDS: LINAGLIPTIN 5 MG TABLET PO SCH (08:47)
[2020-10-31] MEDS: OXcarbazepine 150 MG TAB PO SCH ×2 (08:48→20:09)
[2020-10-31] MEDS: TOPIRAMATE 25 MG TAB PO SCH ×2 (08:48→20:10)
[2020-10-31] MEDS: COLCHICINE 0.6 MG EACH PO SCH ×2 (09:12→20:07)
--- NOTE | 2020-10-31 10:44 | P.PN ---
Subjective Progress Note Date: 10/31/20 Principal diagnosis: Shortness of breath. On 10/22/2020 patient seen in follow-up, she is awake and alert, she remains on 6 L of oxygen her pulse ox is 90-93%, she is breathing comfortably, although still having fever spikes, with a T-max of 101.8F this morning, today's day 2 o f Remdesivir, we added colchicine, she is on oral Decadron 6 mg daily, she is on prophylactic dose of Lovenox, in addition to vitamins. Today's labs have been reviewed, showing d-dimer of 0.85, CRP is down to 4.6, associated LDH value from today, her pro-calcitonin level was 0.27, her influenza and RSV screen were negative. On 10/23/2020 patient seen in follow-up on medical floor, she is awake and alert, oriented 3, she is wheezy, has a congested cough, she is currently on 2 L of oxygen her pulse ox is between 87-93%, she still having some low-grade fevers, today's chest x-ray showing patchy perihilar and basilar infiltrates without significant change. Patient remains on Remdesivir, today is day 3 of treatment, in addition to Decadron, prophylactic doses of Lovenox in her d-dimer remains low at 0.62, in addition to vitamins and colchicine. Her inflammatory markers are coming down, her procalcitonin level was not elevated to 0.27 On 10/26/2019 patient seen in follow-up on medical floor, she is currently on high flow oxygen per year flow at 50 L and FiO2 of 82%, and her pulse ox is 91%, she states his breathing comfortably, overall her breathing is better, she is feeling better, she's had that no fever or chills, hemodynamically stable, no chest discomfort. 0.9 normal saline is infusing at 20 ML per hour, chest x-ray today showed coarse perihilar and basilar infiltrates unchanged from prior study. She finished her Remdesivir treatment yesterday, she remains on bronchodilators, she remains on dexamethasone 6 mg daily, subcu Lovenox 40 mg twice daily, oral Pepcid, vitamin C D and zinc. Today's labs have been reviewed, CBC is within normal limits, d-dimer 0.49, renal profile is unremarkable, CO2 was mildly elevated at 32, the rest of electrolytes were within normal limits, LDH is 346, and CRP is 2.3. No Altered mentation, patient is tolerating oral diet, no nausea vomiting no abdominal pain On 10/27/2020 patient seen in follow-up on medical floor. Patient remains on high flow oxygen per Airvo with 50 L and FiO2 of 82%, and her pulse ox has been 87-89%, patient feels more dyspneic on today's exam, she did have a fever spike earlier today in the morning however it is not recorded. She is coughing, however her cough is dry, nonproductive. No chest pain. Today's chest x-ray shows patchy perihilar basilar infiltrates noted to be slightly improved. Tory ent remains on empiric antibiotics in the form of Rocephin, she is on 6 mg oral dose of Decadron on a daily basis, she is on Lovenox 40 mg twice a day, patient to vitamin C D and zinc. Her last d-dimer yesterday was 0.49, today's labs have been reviewed. Pro-calcitonin is 0.22 on today's labs, inflammatory markers are improving. Progress note dated 10/28/2020. 60-year-old female with a history of severe hypoxemic respiratory failure, secondary to COVID 19 pneumonia. Today, the patient was on AIRVO at 60 L/m, and 90% FiO2, as well as a partial rebreather mask. Her saturations were only in the mid to high 80s and for that reason, the patient was transferred to the intensive care unit for further monitoring and treatment. The patient really has not shown much improvement over the last couple of days. Her chest x-ray actually looked a bit worse to us, but we did give her some Lasix just in case some of what we were seeing related to fluid overload. White count was 5.72, hemoglobin 12.9, hematocrit 39.8, and platelet count 224,000. Sodium was 134, potassium 4, chloride 94, CO2 31, anion gap 9, BUN 15, and creatinine 0.8. Vital signs showed a blood pressure of 87/45, heart rate 79, respiratory rate 24, and a normal temperature. Medications were reviewed and were appropriate. Progress note dated 10/30/2020 60-year-old female with a history of severe hypoxemic respiratory failure. The patient has a history of COVID 19 pneumonia. Currently, the patient is on BiPAP with an IPAP of 12 and EPAP of 6, and 100%. Yesterday, the nurse had a conversation with the patient and before the end that shift, the patient had decided to be a DO NOT RESUSCITATE. Sometime after that, the patient changed her mind. In addition to BiPAP, the patient is on saline at 10 mL an hour. The patient was admitted on 10/21/2020. We did have a long discussion again today about CODE STATUS. The patient did agree to go on life support if necessary. She stated though that if it appeared that she was not going to improve, that she would want to come off of life support and be made comfortable. The patient would not agree to tracheostomy or PEG tube placement. She has not eaten anyt warner she's been on the BiPAP 17/04. Today, we'll place a PICC line, and start her on total parenteral nutrition. Today's temperature is 97.9, heart rate 95, respiratory rate 17, blood pressure 108/59, and saturations between 85-90%. White count is 5.7, hemoglobin 13.4, hematocrit 40.3, and platelet count 268,000. D-dimer is 0.92. Sodium 134, potassium 3.8, chloride 96, CO2 30, anion gap 8, BUN 24, and creatinine 0.8. LDH is 905, C-reactive protein is 202. Chest x-ray stable to minimally improved. Progress note dated 10/31/2020. 60-year-old female, with a history of severe hypoxemic respiratory failure, secondary to COVID 19 pneumonia. The patient remains about the same. The patient is currently on BiPAP, with an IPAP of 12 pending EPAP 6. The patient's FiO2 is set at 100%. She's getting saline at 20 mL an hour and TPN at 30 mL/h with a goal of 60. She has a PICC line in place. The patient did receive, convalescent plasma yesterday. We have talked to her numerous times about CODE STATUS. The patient is currently a full code and would agree to at least short- term intubation and mechanical ventilation. She would not agree to tracheostomy or PEG tube placement. Currently, her white count is 7.5, hemoglobin 13.5, hematocrit 40.5, platelet count 283,000. The patient's d-dimer is 1.03. Sodium 134, potassium 3.8, chlorides 99, CO2 27, anion gap 8, BUN 23, and creatinine 0.67. Chest x-ray is stable to slightly improved. Objective - Vital Signs Vital signs: Vital Signs Temp 99.2 F 10/31/20 08:00 Pulse 70 10/31/20 10:00 Resp 16 10/31/20 10:00 BP 104/67 10/31/20 10:00 Pulse Ox 87 L 10/31/20 10:00 Intake & Output 10/30/20 10/31/20 10/31/20 18:59 06:59 18:59 Intake Total 469 818 240 Output Total 590 715 210 Balance -121 103 30 Weight 89.6 kg 82.6 kg Intake: IV 260 220 80 0.9NS 240 220 80 Intake, IV Titration 598 60 Amount Cefepime 2 gm In Sodium 100 Chloride 0.9% 100 ml @ 25 mls/hr IVPB Q12HR [facility] Rx #:[id number] Fat Emulsion 20% 250 ml @ 168 0 20.833 mls/hr IV MoWeFr [facility] Rx#:[id number] Mvi, Adult No.4 with Vit 330 60 K 10 ml Trace (Conc-1Ml/ Dose) 1 ml In Amino Acid 5%-D15w+Lytes*E* 1,000 ml @ 30 mls/hr IV .Q24H [facility] Rx#:[id number] Oral 100 Blood Product 209 Ffp Pher Conval Covid19 209 Acda 2 Unit [id number] Output: Urine 590 715 210 Other: Voiding Method Indwelling Catheter Indwelling Catheter Indwelling Catheter - Exam Mild respiratory distress, oriented 3. The patient's on BiPAP with settings of IPAP 12/EPAP 6, and 100%. HEENT examination is grossly unremarkable. Mucous membranes are moist. No oral lesions. Neck supple. Full range of motion. No adenopathy thyromegaly or neck vein distention. Cardiovascular examination reveals regular rhythm rate. S1-S2 normal. No S3 or S4. No discernible murmur noted. Heart sounds are distant and heart rate is 970 bpm. Lungs reveal coarse bilateral rhonchi, and a few crackles. Breath sounds equal bilaterally but diminished throughout. No wheezes. Breath sounds aren't changed compared to the last 2 days examinations. Abdomen soft bowel sounds are heard. No masses or tenderness. Extremities are intact. No cyanosis clubbing or edema. Skin is without rash or lesion. Neurologic examination is brief but nonfocal. - Labs CBC & Chem 7: 10/31/20 07:37 10/31/20 07:37 Labs: Abnormal Lab Results - Last 24 Hours (Table) 10/30/20 10/30/20 10/30/20 Range/Units 11:46 11:58 16:57 Lymphocytes # (1.0-4.8) k/uL D-Dimer (<0.60) mg/L FEU Sodium (137-145) mmol/L BUN (7-17) mg/dL Glucose (74-99) mg/dL POC Glucose (mg/dL) 150 H 218 H (75-99) mg/dL AST (14-36) U/L ALT (4-34) U/L Lactate Dehydrogenase (313-618) U/L C-Reactive Protein (<10.0) mg/L Albumin (3.5-5.0) g/dL Triglycerides 154 H (<150) mg/dL 10/30/20 10/31/20 10/31/20 Range/Units 20:18 05:56 07:37 Lymphocytes # 0.3 L (1.0-4.8) k/uL D-Dimer (<0.60) mg/L FEU Sodium (137-145) mmol/L BUN (7-17) mg/dL Glucose (74-99) mg/dL POC Glucose (mg/dL) 203 H 211 H (75-99) mg/dL AST (14-36) U/L ALT (4-34) U/L Lactate Dehydrogenase (313-618) U/L C-Reactive Protein (<10.0) mg/L Albumin (3.5-5.0) g/dL Triglycerides (<150) mg/dL 10/31/20 10/31/20 Range/Units 07:37 07:37 Lymphocytes # (1.0-4.8) k/uL D-Dimer 1.03 H (<0.60) mg/L FEU Sodium 134 L (137-145) mmol/L BUN 23 H (7-17) mg/dL Glucose 156 H (74-99) mg/dL POC Glucose (mg/dL) (75-99) mg/dL AST 64 H (14-36) U/L ALT 62 H (4-34) U/L Lactate Dehydrogenase 906 H (313-618) U/L C-Reactive Protein 74.0 H (<10.0) mg/L Albumin 3.2 L (3.5-5.0) g/dL Triglycerides (<150) mg/dL Microbiology - Last 24 Hours (Table) 10/28/20 15:41 Blood Culture - Preliminary Blood No Growth after 48 hours Assessment and Plan Assessment: #1. Acute on chronic hypoxic respiratory failure secondary to acute COVID 19 pneumonitis, status post remdesivir. #2. History of COPD #3. Elevated transaminases secondary to COVID 19 infection #4. Type 2 diabetes mellitus #5. History of obstructive sleep apnea syndrome #6. Dyslipidemia #7. History of degenerative joint disease #8. History of bipolar disorder Plan: Plan dated 10/31/2020. The patient remains on 100% oxygen, and is BiPAP dependent. The patient would agree to short-term mechanical ventilation if it came to that. She would not want long-term mechanical ventilation, and she would not want a tracheostomy tube and a PEG tube, and potential transfer to long-term acute care. Currently, she is holding her own. She is a full code. She did receive convalescent plasma yesterday. She remains on TPN with a goal of 60 mL an hour. She's half of that right now. Prognosis is guarded. We will continue to follow make additional recommendations were appropriate. Time with Patient: Greater than 30
[2020-10-31 11:57] LABS: Glucose,Whole Blood 221 mg/dL (75-99)
[2020-10-31] MEDS: POTASSIUM CHLORIDE 10 MEQ in WATER FOR INJECTION 1 100ML.BAG IVPB SCH ×2 (14:19→15:16)
[2020-10-31] MEDS: 1: AMINO ACID 5%-D15W+LYTES*E* 1,000 ML 2: MVI, ADULT NO.4 WITH VIT K 10 ML, TRACE (CON IV SCH ×3 (15:16)
[2020-10-31 17:06] LABS: Glucose,Whole Blood 192 mg/dL (75-99)
--- NOTE | 2020-10-31 18:14 | PN ---
PROGRESS NOTE DATE OF SERVICE: 10/31/2020 REASON FOR FOLLOWUP: Pneumonia. INTERVAL HISTORY: Patient is currently afebrile. Patient is breathing comfortably. Patient denies having any chest pain. Did have cough. No sputum. No nausea. No vomiting. No abdominal pain. No diarrhea. PHYSICAL EXAMINATION: Blood pressure 105/54, pulse of 80, temperature of 98. She is 91% on BiPAP. General description is a middle-aged female lying in bed in no distress. Respiratory system: Unlabored breathing with decreased breath sounds in the base, with no wheeze. Heart S1, S2. Regular rate and rhythm. Abdomen soft. No tenderness. LABS: Hemoglobin 13.5, white count 7.0, BUN of 23, creatinine 0.67. DIAGNOSTIC IMPRESSION AND PLAN: Patient admitted to the hospital initially with Covid 19 pneumonia, subsequently did have worsening of her respiratory status. Did have elevated procalcitonin, concern for possible secondary bacterial pneumonia. Patient is covered with Cefepime and Vanco though the Vanco trough is low. Blood culture has been negative. Continue supportive care. MMODL / IJN: [id number] /
--- NOTE | 2020-10-31 19:51 | P.PN ---
Progress Note - Text Progress Note Date: 10/31/20 Chief Complaint: Short of breath History of presenting complaint: This is a 60-year-old patient who follows with Yajaira Barber. Chronic stable medical conditions include diabetes, fibromyalgia, GERD, hypertension, hyperlipidemia, osteoarthritis, obstructive sleep apnea. She is on 3 L of nasal cannula home. Night has been getting it more often lately. Diabetic peripheral neuropathy, obstructive sleep apnea does not use CPAP, chronic kidney disease, arthritis in multiple joints, bipolar schizoaffective disorder. Patient presents of 1 week of increasing shortness of breath. Cough. Slight phlegm. Has had fever for 2 days. Decrease appetite some headaches no loss of taste or smell. No diarrhea. Body aches all over. Patient tested for COVID 19 in the ER. Still somewhat tired rundown. Admitted with bilateral COVID 19 pneumonia, acute hypoxic respiratory failure, acute COPD exacerbation. Patient was started on dexamethasone, Lovenox, Remdesivir, vitamin C vitamin D and zinc. Pulmonary was consulted. Patient has been requiring BiPAP. On October 28 because of increasing oxygen requirement patient is moved to the ICU. Patient was started on IV cefepime and vancomycin. Given convalescent plasma on October 30. Today-ICU: Remains on BiPAP at all times. PICC line placed yesterday. Started on TPN and lipids. Remains short of breath. Able to communicate Review of systems: Was done for constitutional, cardiovascular, GI, pulmonary. relevant finding as above Active Medications Acetaminophen (Acetaminophen Tab 325 Mg Tab) 650 mg PO Q6HR PRN PRN Reason: Fever and/ or Pain Last Admin: 10/28/20 00:12 Dose: 650 mg Documented by: Albuterol Sulfate (Albuterol Hfa Inhaler) 4 puff INHALATION Q4H [facility] Last Admin: 10/31/20 19:23 Dose: 4 puff Documented by: Aripiprazole (Aripiprazole 10 Mg Tab) 10 mg PO HS [facility] Last Admin: 10/30/20 20:02 Dose: 10 mg Documented by: Aripiprazole (Aripiprazole 20 Mg Tab) 20 mg PO DAILY [facility] Last Admin: 10/31/20 08:46 Dose: 20 mg Documented by: Artificial Tears (Artificial Tears-Hypromellose Drops 15 Ml Btl) 1 drops BOTH EYES QID PRN PRN Reason: Dry Eye(s) Last Admin: 10/29/20 18:47 Dose: 1 drops Documented by: Ascorbic Acid (Ascorbic Acid 500 Mg Tab) 500 mg PO DAILY [facility] Last Admin: 10/31/20 08:44 Dose: 500 mg Documented by: Atorvastatin Calcium (Atorvastatin 20 Mg Tab) 20 mg PO DAILY [facility] Last Admin: 10/31/20 08:45 Dose: 20 mg Documented by: Budesonide/Formoterol Fumarate (Symbicort 160-4.5 Mcg Inhaler) 2 puff INHALATION RT-BID [facility] Last Admin: 10/31/20 19:23 Dose: 2 puff Documented by: Cholecalciferol (Cholecalciferol 25 Mcg (1000 Iu) Tablet) 100 mcg PO DAILY [facility] Last Admin: 10/31/20 08:44 Dose: 100 mcg Documented by: Clonazepam (Clonazepam 0.5 Mg Tab) 0.5 mg PO BID [facility] Last Admin: 10/31/20 06:29 Dose: 0.5 mg Documented by: Colchicine (Colchicine 0.6 Mg Each) 0.6 mg PO BID [facility] Last Admin: 10/31/20 09:12 Dose: 0.6 mg Documented by: Enoxaparin Sodium (Enoxaparin 40 Mg/0.4 Ml Syringe) 40 mg SQ BID [facility] Last Admin: 10/31/20 08:46 Dose: 40 mg Documented by: Famotidine (Famotidine 20 Mg Tab) 20 mg PO BID [facility] Last Admin: 10/31/20 08:45 Dose: 20 mg Documented by: Cefepime HCl 2 gm/ Sodium (Chloride) 100 mls @ 25 mls/hr IVPB Q12HR [facility] Last Admin: 10/31/20 08:46 Dose: 25 mls/hr Documented by: Amino Ac/Electrol/Dextrose/Calcium (Clinimix E 5%-D15% Solution) 1,000 mls @ 60 mls/hr IV .BY DURATION [facility] Last Admin: 10/31/20 15:16 Dose: 60 mls/hr Documented by: Parenteral Vitamin Supplement 10 ml/ Chromium/Copper/Manganese/Seleni/Zn 1 ml/Amino Ac/Electrol/Dextrose/Calcium 1,011 mls @ 60 mls/hr IV .BY DURATION [facility] Fat Emulsion Intravenous (Lipids 20%) 250 mls @ 20.833 mls/hr IV MoWeFr [facility] Last Admin: 10/30/20 15:27 Dose: 20.833 mls/hr Documented by: Vancomycin HCl 1,500 mg/ (Sodium Chloride) 250 mls @ 125 mls/hr IVPB Q12H [facility] Last Admin: 10/31/20 17:37 Dose: 125 mls/hr Documented by: Insulin Aspart (Insulin Aspart (Novolog) 100 Unit/Ml Vial) 0 unit SQ Q6H [facility]; Protocol Last Admin: 10/31/20 17:33 Dose: 5 unit Documented by: Insulin Detemir (Insulin Detemir (Levemir) 100 Unit/Ml Syr) 15 unit SQ [facility] Lamotrigine (Lamotrigine 100 Mg Tab) 150 mg PO BID [facility] Last Admin: 10/31/20 08:44 Dose: 150 mg Documented by: Linagliptin (Linagliptin 5 Mg Tablet) 5 mg PO DAILY [facility] Last Admin: 10/31/20 08:47 Dose: 5 mg Documented by: Losartan Potassium (Losartan 50 Mg Tab) 50 mg PO DAILY [facility] Last Admin: 10/31/20 08:45 Dose: 50 mg Documented by: Meclizine HCl (Meclizine 25 Mg Tab) 25 mg PO Q8H PRN PRN Reason: Nausea And Vomiting Methylprednisolone Sodium Succinate (Methylprednisolone Sod Succi 125 Mg/2 Ml Vial) 60 mg IV Q6HR [facility] Last Admin: 10/31/20 17:33 Dose: 60 mg Documented by: Miscellaneous Information (Magnesium Replacement Protocol 1 Each Misc) 1 each MISCELLANE DAILY PRN; Protocol PRN Reason: Per Protocol Miscellaneous Information (Potassium Replacement Protocol 1 Each Misc) 1 each MISCELLANE DAILY PRN; Protocol PRN Reason: Per Protocol Oxcarbazepine (Oxcarbazepine 150 Mg Tab) 150 mg PO BID [facility] Last Admin: 10/31/20 08:48 Dose: 150 mg Documented by: Oxycodone/Acetaminophen (Oxycodone-Apap 10-325mg 1 Each Tab) 1 each PO Q6H PRN PRN Reason: Pain Last Admin: 10/31/20 15:51 Dose: 1 each Documented by: Potassium Chloride (Potassium Chloride Er 10 Meq Tab.Er.Prt) 10 meq PO TID [facility] Last Admin: 10/31/20 15:51 Dose: 10 meq Documented by: Pregabalin (Pregabalin 100 Mg Cap) 100 mg PO BID [facility] Last Admin: 10/31/20 08:45 Dose: 100 mg Documented by: Sumatriptan Succinate (Sumatriptan Succinate 50 Mg Tab) 100 mg PO BID PRN PRN Reason: Migraine Headache Topiramate (Topiramate 25 Mg Tab) 50 mg PO BID [facility] Last Admin: 10/31/20 08:48 Dose: 50 mg Documented by: Zinc Sulfate (Zinc Sulfate 220 Mg Cap) 220 mg PO DAILY [facility] Last Admin: 10/31/20 08:45 Dose: 220 mg Documented by: Past medical history to include: COPD, diabetes, fibromyalgia, GERD, hyperlipidemia, hypertension, obstructive sleep apnea does not use CPAP, home oxygen 3 L normal. Night, diabetic peripheral neuropathy, chronic kidney disease, bipolar depression, schizoaffective disorder. Social history: Lives with her daughter. Disabled. Home oxygen. Smoked from 9065 through 2009. In the past used several street drugs but not so since 1989. Physical examination: VITAL SIGNS: 98, 80, 16, 105/54, 91% on BiPAP GENERAL: Reclining in bed, short of breath, awake Psychiatry: AO 3, mood and affect normal Neurological: Moving all 4 limbs. Rest of exam as per pulmonary and nursing INVESTIGATIONS, reviewed in the clinical context: Fabry 16: D-dimer 1.03 CRP 74 October 30: CRP 201.7 October 29: D-dimer 0.65 CRP 179 sodium 131 potassium 3.3 white count October 28: D-dimer 0.78 CRP 169 pro-calcitonin 0.38 Chest x-ray from yesterday-scattered infiltrates Admission labs: White count 7.2 hemoglobin 15.1 decreased lymphocytes d-dimer 0.85 potassium 3.3 creatinine 0.90 glucose 205 EST 106 ALT 103 CRP 37.2 procalcitonin 0.27 Influenza type A, type B both not detected. RSV P/Cr-not detected. Coronavirus [PCR]-detected EKG tracing personally reviewed by me-normal sinus rhythm some slight ST segment changes Chest x-ray film personally reviewed by me-bilateral basilar infiltrates Assessment: -Bilateral COVID 19 pneumonia causing sepsis. Slow to respond. Has received Remdesivir. Convalescent plasma. On colchicine. Change from dexamethasone to IV Solu-Medrol on October 30. -Acute COPD exacerbation in an [id number] to respond -acute hypoxic respiratory failure, requiring BiPAP-slow to respond -Diabetes mellitus type 2, uncontrolled with hyperglycemia from steroids -Chronic fibromyalgia -GERD -Essential hypertension -Hyperlipidemia -Obstructive sleep apnea does not use CPAP -Diabetic peripheral neuropathy -Primary osteoarthritis of multiple joints -TPN and lipids Plan: IV cefepime, vancomycin. Requiring BiPAP-at all times. On TPN and lipids. Dose of Solu-Medrol increased by pulmonary.
[2020-10-31] MEDS: ARIPiprazole 10 MG TAB PO SCH (20:08)
[2020-10-31] MEDS: INSULIN DETEMIR (LEVEMIR) 100 UNIT/ML SYR SQ SCH (20:12)
[2020-10-31 20:21] LABS: Glucose,Whole Blood 206 mg/dL (75-99)
[2020-10-31 23:29] LABS: Glucose,Whole Blood 225 mg/dL (75-99)
[2020-11-01] MEDS: ALBUTEROL HFA INHALER INHALATION SCH ×7 (00:25→23:32)
[2020-11-01 03:53] LABS: African American GFR (CKD) >90 (>60 ml/min/1.73 sqM); Anion Gap 5 mmol/L; Blood Urea Nitrogen 23 mg/dL (7-17); C Reactive Protein 33.4 mg/L (<10.0); Calcium 8.5 mg/dL (8.4-10.2); Carbon Dioxide 30 mmol/L (22-30); Chloride 101 mmol/L (98-107); Creatine Kinase 41 U/L (30-135); Glucose 160 mg/dL (74-99); LDH 802 U/L (313-618); Magnesium 2.1 mg/dL (1.6-2.3); Non-African American GFR(CKD) >90 (>60 ml/min/1.73 sqM); Phosphorus 3.2 mg/dL (2.5-4.5); Potassium 4.1 mmol/L (3.5-5.1); Sodium 136 mmol/L (137-145)
[2020-11-01 05:29] LABS: Glucose,Whole Blood 203 mg/dL (75-99)
[2020-11-01] MEDS: methylPREDNISolone SOD SUCCI 125 MG/2 ML VIAL IV SCH ×4 (05:49→23:16)
[2020-11-01] MEDS: INSULIN ASPART (NovoLOG) 100 UNIT/ML VIAL SQ SCH ×4 (05:49→23:24)
[2020-11-01] MEDS: VANCOMYCIN 1,500 MG in SODIUM CHLORIDE 0.9% 250 ML IVPB SCH ×2 (05:50→17:30)
[2020-11-01] MEDS: oxyCODONE-APAP 10-325MG 1 EACH TAB PO PRN ×3 (06:07→20:52)
--- NOTE | 2020-11-01 07:27 | XR ---
EXAMINATION TYPE: XR chest 1V portable DATE OF EXAM: 11/01/2020 HISTORY: Shortness of breath. COMPARISON: October 31, 2020 TECHNIQUE: Single view of the chest is submitted. FINDINGS: Demonstrated are scattered senescent parenchymal change. Bilateral patchy infiltrates persist. Small effusions are noted. The heart is stable. Hilar and mediastinal structures are within normal limits. Degenerative changes are seen of the dorsal spine. IMPRESSION: 1. Stable appearance of the chest.
[2020-11-01] MEDS: SYMBICORT 160-4.5 MCG INHALER INHALATION SCH ×2 (07:50→19:11)
[2020-11-01] MEDS: 1: AMINO ACID 5%-D15W+LYTES*E* 1,000 ML 2: MVI, ADULT NO.4 WITH VIT K 10 ML, TRACE (CON IV SCH ×3 (07:59)
[2020-11-01] MEDS: POTASSIUM CHLORIDE ER 10 MEQ TAB.ER.PRT PO SCH ×3 (08:36→20:52)
[2020-11-01] MEDS: lamoTRIgine 100 MG TAB PO SCH ×2 (08:36→20:51)
[2020-11-01] MEDS: LOSARTAN 50 MG TAB PO SCH (08:36)
[2020-11-01] MEDS: FAMOTIDINE 20 MG TAB PO SCH ×2 (08:36→20:51)
[2020-11-01] MEDS: PREGABALIN 100 MG CAP PO SCH ×2 (08:36→20:51)
[2020-11-01] MEDS: clonazePAM 0.5 MG TAB PO SCH ×2 (08:36→20:50)
[2020-11-01] MEDS: ASCORBIC ACID 500 MG TAB PO SCH (08:36)
[2020-11-01] MEDS: ZINC SULFATE 220 MG CAP PO SCH (08:36)
[2020-11-01] MEDS: ENOXAPARIN 40 MG/0.4 ML SYRINGE SQ SCH ×2 (08:36→20:50)
[2020-11-01] MEDS: ATORVASTATIN 20 MG TAB PO SCH (08:36)
[2020-11-01] MEDS: CHOLECALCIFEROL 25 MCG (1000 IU) TABLET PO SCH (08:36)
[2020-11-01] MEDS: CEFEPIME 2 GM in SODIUM CHLORIDE 0.9% 100 ML IVPB SCH ×2 (08:36→20:53)
[2020-11-01] MEDS: TOPIRAMATE 25 MG TAB PO SCH ×2 (08:38→20:52)
[2020-11-01] MEDS: OXcarbazepine 150 MG TAB PO SCH ×2 (08:38→20:51)
[2020-11-01] MEDS: LINAGLIPTIN 5 MG TABLET PO SCH (08:38)
[2020-11-01] MEDS: COLCHICINE 0.6 MG EACH PO SCH ×2 (08:38→20:50)
[2020-11-01 11:47] LABS: Glucose,Whole Blood 213 mg/dL (75-99)
--- NOTE | 2020-11-01 11:51 | P.PN ---
Subjective Progress Note Date: 11/01/20 Principal diagnosis: Shortness of breath. On 10/22/2020 patient seen in follow-up, she is awake and alert, she remains on 6 L of oxygen her pulse ox is 90-93%, she is breathing comfortably, although still having fever spikes, with a T-max of 101.8F this morning, today's day 2 o f Remdesivir, we added colchicine, she is on oral Decadron 6 mg daily, she is on prophylactic dose of Lovenox, in addition to vitamins. Today's labs have been reviewed, showing d-dimer of 0.85, CRP is down to 4.6, associated LDH value from today, her pro-calcitonin level was 0.27, her influenza and RSV screen were negative. On 10/23/2020 patient seen in follow-up on medical floor, she is awake and alert, oriented 3, she is wheezy, has a congested cough, she is currently on 2 L of oxygen her pulse ox is between 87-93%, she still having some low-grade fevers, today's chest x-ray showing patchy perihilar and basilar infiltrates without significant change. Patient remains on Remdesivir, today is day 3 of treatment, in addition to Decadron, prophylactic doses of Lovenox in her d-dimer remains low at 0.62, in addition to vitamins and colchicine. Her inflammatory markers are coming down, her procalcitonin level was not elevated to 0.27 On 10/26/2019 patient seen in follow-up on medical floor, she is currently on high flow oxygen per year flow at 50 L and FiO2 of 82%, and her pulse ox is 91%, she states his breathing comfortably, overall her breathing is better, she is feeling better, she's had that no fever or chills, hemodynamically stable, no chest discomfort. 0.9 normal saline is infusing at 20 ML per hour, chest x-ray today showed coarse perihilar and basilar infiltrates unchanged from prior study. She finished her Remdesivir treatment yesterday, she remains on bronchodilators, she remains on dexamethasone 6 mg daily, subcu Lovenox 40 mg twice daily, oral Pepcid, vitamin C D and zinc. Today's labs have been reviewed, CBC is within normal limits, d-dimer 0.49, renal profile is unremarkable, CO2 was mildly elevated at 32, the rest of electrolytes were within normal limits, LDH is 346, and CRP is 2.3. No Altered mentation, patient is tolerating oral diet, no nausea vomiting no abdominal pain On 10/27/2020 patient seen in follow-up on medical floor. Patient remains on high flow oxygen per Airvo with 50 L and FiO2 of 82%, and her pulse ox has been 87-89%, patient feels more dyspneic on today's exam, she did have a fever spike earlier today in the morning however it is not recorded. She is coughing, however her cough is dry, nonproductive. No chest pain. Today's chest x-ray shows patchy perihilar basilar infiltrates noted to be slightly improved. Tory ent remains on empiric antibiotics in the form of Rocephin, she is on 6 mg oral dose of Decadron on a daily basis, she is on Lovenox 40 mg twice a day, patient to vitamin C D and zinc. Her last d-dimer yesterday was 0.49, today's labs have been reviewed. Pro-calcitonin is 0.22 on today's labs, inflammatory markers are improving. Progress note dated 10/28/2020. 60-year-old female with a history of severe hypoxemic respiratory failure, secondary to COVID 19 pneumonia. Today, the patient was on AIRVO at 60 L/m, and 90% FiO2, as well as a partial rebreather mask. Her saturations were only in the mid to high 80s and for that reason, the patient was transferred to the intensive care unit for further monitoring and treatment. The patient really has not shown much improvement over the last couple of days. Her chest x-ray actually looked a bit worse to us, but we did give her some Lasix just in case some of what we were seeing related to fluid overload. White count was 5.72, hemoglobin 12.9, hematocrit 39.8, and platelet count 224,000. Sodium was 134, potassium 4, chloride 94, CO2 31, anion gap 9, BUN 15, and creatinine 0.8. Vital signs showed a blood pressure of 87/45, heart rate 79, respiratory rate 24, and a normal temperature. Medications were reviewed and were appropriate. Progress note dated 10/30/2020 60-year-old female with a history of severe hypoxemic respiratory failure. The patient has a history of COVID 19 pneumonia. Currently, the patient is on BiPAP with an IPAP of 12 and EPAP of 6, and 100%. Yesterday, the nurse had a conversation with the patient and before the end that shift, the patient had decided to be a DO NOT RESUSCITATE. Sometime after that, the patient changed her mind. In addition to BiPAP, the patient is on saline at 10 mL an hour. The patient was admitted on 10/21/2020. We did have a long discussion again today about CODE STATUS. The patient did agree to go on life support if necessary. She stated though that if it appeared that she was not going to improve, that she would want to come off of life support and be made comfortable. The patient would not agree to tracheostomy or PEG tube placement. She has not eaten anyt warner she's been on the BiPAP 17/04. Today, we'll place a PICC line, and start her on total parenteral nutrition. Today's temperature is 97.9, heart rate 95, respiratory rate 17, blood pressure 108/59, and saturations between 85-90%. White count is 5.7, hemoglobin 13.4, hematocrit 40.3, and platelet count 268,000. D-dimer is 0.92. Sodium 134, potassium 3.8, chloride 96, CO2 30, anion gap 8, BUN 24, and creatinine 0.8. LDH is 905, C-reactive protein is 202. Chest x-ray stable to minimally improved. Progress note dated 10/31/2020. 60-year-old female, with a history of severe hypoxemic respiratory failure, secondary to COVID 19 pneumonia. The patient remains about the same. The patient is currently on BiPAP, with an IPAP of 12 pending EPAP 6. The patient's FiO2 is set at 100%. She's getting saline at 20 mL an hour and TPN at 30 mL/h with a goal of 60. She has a PICC line in place. The patient did receive, convalescent plasma yesterday. We have talked to her numerous times about CODE STATUS. The patient is currently a full code and would agree to at least short- term intubation and mechanical ventilation. She would not agree to tracheostomy or PEG tube placement. Currently, her white count is 7.5, hemoglobin 13.5, hematocrit 40.5, platelet count 283,000. The patient's d-dimer is 1.03. Sodium 134, potassium 3.8, chlorides 99, CO2 27, anion gap 8, BUN 23, and creatinine 0.67. Chest x-ray is stable to slightly improved. Progress note dated 11/01/2020. 60-year-old female, with a history of severe hypoxemic respiratory failure, secondary to COVID 19 pneumonia. The patient remains in the intensive care unit. She is in room 251. She is on BiPAP with settings of IPAP 12 and EPAP 6, and 100%. She's getting TPN at 60 mL and saline at KVO. The patient's x-ray continues to show bilateral diffuse patchy infiltrates. Today's sodium is 136, potassium 4.1, chloride 101, CO2 30, anion gap 5, BUN 23, and creatinine 0.65. LDH is 8 O2. C-reactive protein is 33.4. Chest x-ray shows bilateral patchy infiltrates, which are unchanged. The patient remains on appropriate medications. Objective - Vital Signs Vital signs: Vital Signs Temp 98.2 F 11/01/20 08:00 Pulse 64 11/01/20 11:00 Resp 17 11/01/20 11:00 BP 101/61 11/01/20 11:00 Pulse Ox 89 L 11/01/20 11:00 Intake & Output 10/31/20 11/01/20 11/01/20 18:59 06:59 18:59 Intake Total 1150 1120 520 Output Total 905 1020 225 Balance 245 100 295 Weight 84.1 kg 84.1 kg Intake: IV 240 340 180 0.9NS 240 240 80 Cefepime 2 gm In Sodium 100 100 Chloride 0.9% 100 ml @ 25 mls/hr IVPB Q12HR [facility] Rx #:[id number] Intake, IV Titration 710 780 240 Amount Amino Acid 5%-D15w+Lytes* 720 E* 1,000 ml @ 60 mls/hr IV .BY DURATION [facility] Rx#: [id number] Fat Emulsion 20% 250 ml @ 0 20.833 mls/hr IV MoWeFr [facility] Rx#:[id number] Mvi, Adult No.4 with Vit 240 K 10 ml Trace (Conc-1Ml/ Dose) 1 ml In Amino Acid 5%-D15w+Lytes*E* 1,000 ml @ 30 mls/hr IV .Q24H [facility] Rx#:[id number] Mvi, Adult No.4 with Vit 120 60 240 K 10 ml Trace (Conc-1Ml/ Dose) 1 ml In Amino Acid 5%-D15w+Lytes*E* 1,000 ml @ 60 mls/hr IV .BY DURATION [facility] Rx#: [id number] Potassium Chloride 10 meq 100 In Water For Injection 1 100ml.bag @ 100 mls/hr IVPB Q1H [facility] Rx#: [id number] Vancomycin 1,500 mg In 250 Sodium Chloride 0.9% 250 ml @ 125 mls/hr IVPB Q12H [facility] Rx#:[id number] Oral 200 100 Output: Urine 905 1020 225 Other: Voiding Method Indwelling Catheter Indwelling Catheter Indwelling Catheter - Exam Mild respiratory distress, oriented 3. The patient's on BiPAP with settings of IPAP 12/EPAP 6, and 100%. HEENT examination is grossly unremarkable. Mucous membranes are moist. No oral lesions. Neck supple. Full range of motion. No adenopathy thyromegaly or neck vein distention. Cardiovascular examination reveals regular rhythm rate. S1-S2 normal. No S3 or S4. No discernible murmur noted. Heart sounds are distant and heart rate is 64 bpm. Lungs reveal coarse bilateral rhonchi, and a few crackles. Breath sounds equal bilaterally but diminished throughout. No wheezes. Breath sounds have not changed. Abdomen soft bowel sounds are heard. No masses or tenderness. Extremities are intact. No cyanosis clubbing or edema. Skin is without rash or lesion. Neurologic examination is brief but nonfocal. - Labs CBC & Chem 7: 10/31/20 07:37 11/01/20 03:16 Labs: Abnormal Lab Results - Last 24 Hours (Table) 10/31/20 10/31/20 10/31/20 Range/Units 07:37 11:56 17:05 Sodium (137-145) mmol/L BUN (7-17) mg/dL Glucose (74-99) mg/dL POC Glucose (mg/dL) 221 H 192 H (75-99) mg/dL Lactate Dehydrogenase (313-618) U/L C-Reactive Protein (<10.0) mg/L Procalcitonin 0.30 H (0.02-0.09) ng/mL 10/31/20 10/31/20 11/01/20 Range/Units 20:20 23:27 03:16 Sodium 136 L (137-145) mmol/L BUN 23 H (7-17) mg/dL Glucose 160 H (74-99) mg/dL POC Glucose (mg/dL) 206 H 225 H (75-99) mg/dL Lactate Dehydrogenase 802 H (313-618) U/L C-Reactive Protein 33.4 H (<10.0) mg/L Procalcitonin (0.02-0.09) ng/mL 11/01/20 Range/Units 05:27 Sodium (137-145) mmol/L BUN (7-17) mg/dL Glucose (74-99) mg/dL POC Glucose (mg/dL) 203 H (75-99) mg/dL Lactate Dehydrogenase (313-618) U/L C-Reactive Protein (<10.0) mg/L Procalcitonin (0.02-0.09) ng/mL Microbiology - Last 24 Hours (Table) 10/28/20 15:41 Blood Culture - Preliminary Blood No Growth after 72 hours Assessment and Plan Assessment: #1. Acute on chronic hypoxemic respiratory failure secondary to acute COVID 19 pneumonitis, status post remdesivir. #2. History of COPD #3. Elevated transaminases secondary to COVID 19 infection #4. Type 2 diabetes mellitus #5. History of obstructive sleep apnea syndrome #6. Dyslipidemia #7. History of degenerative joint disease #8. History of bipolar disorder Plan: Plan dated 11/01/2020. The patient remains on BiPAP and 100%. She's getting nurse with TPN at 60 mL an hour. We will attempt to get her off the BiPAP today so she can take something by mouth. The patient's prognosis is very guarded. We had a conversation with the patient a couple days ago about intubation and mechanical ventilation. She would agree to that for a short period of time maybe 3-5 days or up to 7 days, but she would not want long-term mechanical ventilation before meals certainly would not want a tracheostomy tube or a feeding tube. She made that very clear to me. I'm hoping that we can get her through this without intubation or mechanical ventilation. Her medications are appropriate. Chest x-ray is unchanged. We will continue to follow and make recommendations when necessary. Prognosis is guarded. Time with Patient: Greater than 30
--- NOTE | 2020-11-01 17:10 | P.PN ---
Progress Note - Text Progress Note Date: 11/01/20 Chief Complaint: Short of breath History of presenting complaint: This is a 60-year-old patient who follows with Yajaira Barber. Chronic stable medical conditions include diabetes, fibromyalgia, GERD, hypertension, hyperlipidemia, osteoarthritis, obstructive sleep apnea. She is on 3 L of nasal cannula home. Night has been getting it more often lately. Diabetic peripheral neuropathy, obstructive sleep apnea does not use CPAP, chronic kidney disease, arthritis in multiple joints, bipolar schizoaffective disorder. Patient presents of 1 week of increasing shortness of breath. Cough. Slight phlegm. Has had fever for 2 days. Decrease appetite some headaches no loss of taste or smell. No diarrhea. Body aches all over. Patient tested for COVID 19 in the ER. Still somewhat tired rundown. Admitted with bilateral COVID 19 pneumonia, acute hypoxic respiratory failure, acute COPD exacerbation. Patient was started on dexamethasone, Lovenox, Remdesivir, vitamin C vitamin D and zinc. Pulmonary was consulted. Patient has been requiring BiPAP. On October 28 because of increasing oxygen requirement patient is moved to the ICU. Patient was started on IV cefepime and vancomycin. Given convalescent plasma on October 30. PICC line placed-started on TPN and lipids Today-ICU: Remains on BiPAP at all times. on TPN and lipids. Remains short of breath. Able to communicate Review of systems: Was done for constitutional, cardiovascular, GI, pulmonary. relevant finding as above Active Medications Acetaminophen (Acetaminophen Tab 325 Mg Tab) 650 mg PO Q6HR PRN PRN Reason: Fever and/ or Pain Last Admin: 10/28/20 00:12 Dose: 650 mg Documented by: Albuterol Sulfate (Albuterol Hfa Inhaler) 4 puff INHALATION Q4H [facility] Last Admin: 11/01/20 15:15 Dose: 4 puff Documented by: Aripiprazole (Aripiprazole 10 Mg Tab) 10 mg PO HS [facility] Last Admin: 10/31/20 20:08 Dose: 10 mg Documented by: Aripiprazole (Aripiprazole 20 Mg Tab) 20 mg PO DAILY [facility] Last Admin: 11/01/20 08:38 Dose: 20 mg Documented by: Artificial Tears (Artificial Tears-Hypromellose Drops 15 Ml Btl) 1 drops BOTH EYES QID PRN PRN Reason: Dry Eye(s) Last Admin: 10/29/20 18:47 Dose: 1 drops Documented by: Ascorbic Acid (Ascorbic Acid 500 Mg Tab) 500 mg PO DAILY [facility] Last Admin: 11/01/20 08:36 Dose: 500 mg Documented by: Atorvastatin Calcium (Atorvastatin 20 Mg Tab) 20 mg PO DAILY [facility] Last Admin: 11/01/20 08:36 Dose: 20 mg Documented by: Budesonide/Formoterol Fumarate (Symbicort 160-4.5 Mcg Inhaler) 2 puff INHALATION RT-BID [facility] Last Admin: 11/01/20 07:50 Dose: 2 puff Documented by: Cholecalciferol (Cholecalciferol 25 Mcg (1000 Iu) Tablet) 100 mcg PO DAILY [facility] Last Admin: 11/01/20 08:36 Dose: 100 mcg Documented by: Clonazepam (Clonazepam 0.5 Mg Tab) 0.5 mg PO BID [facility] Last Admin: 11/01/20 08:36 Dose: 0.5 mg Documented by: Colchicine (Colchicine 0.6 Mg Each) 0.6 mg PO BID [facility] Last Admin: 11/01/20 08:38 Dose: 0.6 mg Documented by: Enoxaparin Sodium (Enoxaparin 40 Mg/0.4 Ml Syringe) 40 mg SQ BID [facility] Last Admin: 11/01/20 08:36 Dose: 40 mg Documented by: Famotidine (Famotidine 20 Mg Tab) 20 mg PO BID [facility] Last Admin: 11/01/20 08:36 Dose: 20 mg Documented by: Cefepime HCl 2 gm/ Sodium (Chloride) 100 mls @ 25 mls/hr IVPB Q12HR [facility] Last Admin: 11/01/20 08:36 Dose: 25 mls/hr Documented by: Amino Ac/Electrol/Dextrose/Calcium (Clinimix E 5%-D15% Solution) 1,000 mls @ 60 mls/hr IV .BY DURATION [facility] Last Admin: 10/31/20 15:16 Dose: 60 mls/hr Documented by: Parenteral Vitamin Supplement 10 ml/ Chromium/Copper/Manganese/Seleni/Zn 1 ml/Amino Ac/Electrol/Dextrose/Calcium 1,011 mls @ 60 mls/hr IV .BY DURATION [facility] Last Admin: 11/01/20 07:59 Dose: 60 mls/hr Documented by: Fat Emulsion Intravenous (Lipids 20%) 250 mls @ 20.833 mls/hr IV MoWeFr [facility] Last Admin: 10/30/20 15:27 Dose: 20.833 mls/hr Documented by: Vancomycin HCl 1,500 mg/ (Sodium Chloride) 250 mls @ 125 mls/hr IVPB Q12H [facility] Last Admin: 11/01/20 05:50 Dose: 125 mls/hr Documented by: Insulin Aspart (Insulin Aspart (Novolog) 100 Unit/Ml Vial) 0 unit SQ Q6H [facility]; Protocol Last Admin: 11/01/20 11:49 Dose: 6 unit Documented by: Insulin Detemir (Insulin Detemir (Levemir) 100 Unit/Ml Syr) 15 unit SQ HS [facility] Last Admin: 10/31/20 20:12 Dose: 15 unit Documented by: Lamotrigine (Lamotrigine 100 Mg Tab) 150 mg PO BID [facility] Last Admin: 11/01/20 08:36 Dose: 150 mg Documented by: Linagliptin (Linagliptin 5 Mg Tablet) 5 mg PO DAILY [facility] Last Admin: 11/01/20 08:38 Dose: 5 mg Documented by: Losartan Potassium (Losartan 50 Mg Tab) 50 mg PO DAILY [facility] Last Admin: 11/01/20 08:36 Dose: 50 mg Documented by: Meclizine HCl (Meclizine 25 Mg Tab) 25 mg PO Q8H PRN PRN Reason: Nausea And Vomiting Methylprednisolone Sodium Succinate (Methylprednisolone Sod Succi 125 Mg/2 Ml Vial) 60 mg IV Q6HR [facility] Last Admin: 11/01/20 11:49 Dose: 60 mg Documented by: Miscellaneous Information (Magnesium Replacement Protocol 1 Each Misc) 1 each MISCELLANE DAILY PRN; Protocol PRN Reason: Per Protocol Miscellaneous Information (Potassium Replacement Protocol 1 Each Misc) 1 each MISCELLANE DAILY PRN; Protocol PRN Reason: Per Protocol Miscellaneous Information (Vancomycin Trough Due 1 Each Misc) 0 each MISCELLANE DIRECTED ONE Stop: 11/03/20 05:01 Oxcarbazepine (Oxcarbazepine 150 Mg Tab) 150 mg PO BID [facility] Last Admin: 11/01/20 08:38 Dose: 150 mg Documented by: Oxycodone/Acetaminophen (Oxycodone-Apap 10-325mg 1 Each Tab) 1 each PO Q6H PRN PRN Reason: Pain Last Admin: 11/01/20 15:08 Dose: 1 each Documented by: Potassium Chloride (Potassium Chloride Er 10 Meq Tab.Er.Prt) 10 meq PO TID [facility] Last Admin: 11/01/20 08:36 Dose: 10 meq Documented by: Pregabalin (Pregabalin 100 Mg Cap) 100 mg PO BID [facility] Last Admin: 11/01/20 08:36 Dose: 100 mg Documented by: Sumatriptan Succinate (Sumatriptan Succinate 50 Mg Tab) 100 mg PO BID PRN PRN Reason: Migraine Headache Topiramate (Topiramate 25 Mg Tab) 50 mg PO BID [facility] Last Admin: 11/01/20 08:38 Dose: 50 mg Documented by: Zinc Sulfate (Zinc Sulfate 220 Mg Cap) 220 mg PO DAILY [facility] Last Admin: 11/01/20 08:36 Dose: 220 mg Documented by: Past medical history to include: COPD, diabetes, fibromyalgia, GERD, hyperlipidemia, hypertension, obstructive sleep apnea does not use CPAP, home oxygen 3 L normal. Night, diabetic peripheral neuropathy, chronic kidney disease, bipolar depression, schizoaffective disorder. Social history: Lives with her daughter. Disabled. Home oxygen. Smoked from 9065 through 2009. In the past used several street drugs but not so since 1989. Physical examination: VITAL SIGNS: 98.7, 68, 15, 89/65, 92% on BiPAP GENERAL: Reclining in bed, short of breath, awake, tired Psychiatry: AO 3, mood and affect anxious Neurological: Moving all 4 limbs. Rest of exam as per pulmonary and nursing INVESTIGATIONS, reviewed in the clinical context: November 01: Potassium 4.1 creatinine 0.65 CRP 33.4 Fabry 6: D-dimer 1.03 CRP 74 October 5: CRP 201.7 October 4: D-dimer 0.65 CRP 179 sodium 131 potassium 3.3 white count October 3: D-dimer 0.78 CRP 169 pro-calcitonin 0.38 Chest x-ray from yesterday-scattered infiltrates Admission labs: White count 7.2 hemoglobin 15.1 decreased lymphocytes d-dimer 0.85 potassium 3.3 creatinine 0.90 glucose 205 EST 106 ALT 103 CRP 37.2 procalcitonin 0.27 Influenza type A, type B both not detected. RSV P/Cr-not detected. Coronavirus [PCR]-detected EKG tracing personally reviewed by me-normal sinus rhythm some slight ST segment changes Chest x-ray film personally reviewed by me-bilateral basilar infiltrates Assessment: -Bilateral COVID 19 pneumonia causing sepsis. Slow to respond. Has received Remdesivir. Convalescent plasma. On colchicine. Change from dexamethasone to IV Solu-Medrol on October 30. -Acute COPD exacerbation in an [id number] to respond -acute hypoxic respiratory failure, requiring BiPAP-slow to respond -Diabetes mellitus type 2, uncontrolled with hyperglycemia from steroids -Chronic fibromyalgia -GERD -Essential hypertension -Hyperlipidemia -Obstructive sleep apnea does not use CPAP -Diabetic peripheral neuropathy -Primary osteoarthritis of multiple joints -TPN and lipids Plan: IV cefepime, vancomycin. Requiring BiPAP-at all times. On TPN and lipids. IV Solu-Medrol. Prognosis guarded
[2020-11-01 17:19] LABS: Glucose,Whole Blood 258 mg/dL (75-99)
[2020-11-01] MEDS: ARIPiprazole 10 MG TAB PO SCH (20:50)
[2020-11-01] MEDS: INSULIN DETEMIR (LEVEMIR) 100 UNIT/ML SYR SQ SCH (20:51)
--- NOTE | 2020-11-01 22:51 | PN ---
PROGRESS NOTE DATE OF SERVICE: 11/01/2020 REASON FOR FOLLOWUP: Pneumonia. INTERVAL HISTORY: Patient is currently afebrile. The patient is hemodynamically stable, still requiring to be BiPAP dependent though sating better. No vomiting or diarrhea has been reported. PHYSICAL EXAMINATION: Blood pressure is 139/51 with a pulse of 72, temperature 98. She is 91% on 100% BIPAP. General description is a middle-aged female lying in bed in no distress. Respiratory system: Unlabored breathing. Diminished breath sounds. No wheeze. Heart S1, S2. Regular rate and rhythm. Abdomen: Soft, no tenderness. LABS: BUN of 23, creatinine 0.65. DIAGNOSTIC IMPRESSION AND PLAN: Patient with acute respiratory failure which is multifactorial, the patient did have a component of pneumonia concerning for possible bacterial component in this patient Pt is covered with vancomycin and cefepime. We will try to obtain a sputum to narrow down antibiotics and monitor clinical course closely. MMODL / IJN: [id number] / MTDD
[2020-11-01 23:23] LABS: Glucose,Whole Blood 250 mg/dL (75-99)
[2020-11-01] MEDS: ACETAMINOPHEN TAB 325 MG TAB PO PRN (23:44)
[2020-11-02] MEDS: 1: AMINO ACID 5%-D15W+LYTES*E* 1,000 ML 2: MVI, ADULT NO.4 WITH VIT K 10 ML, TRACE (CON IV SCH ×6 (01:36→15:47)
[2020-11-02] MEDS: ALBUTEROL HFA INHALER INHALATION SCH ×6 (03:31→23:54)
[2020-11-02 05:00] LABS: Glucose,Whole Blood 185 mg/dL (75-99)
[2020-11-02] MEDS: VANCOMYCIN 1,500 MG in SODIUM CHLORIDE 0.9% 250 ML IVPB SCH ×2 (05:11→18:04)
[2020-11-02] MEDS: methylPREDNISolone SOD SUCCI 125 MG/2 ML VIAL IV SCH ×3 (05:11→18:03)
[2020-11-02] MEDS: INSULIN ASPART (NovoLOG) 100 UNIT/ML VIAL SQ SCH ×3 (05:11→18:04)
[2020-11-02] MEDS: oxyCODONE-APAP 10-325MG 1 EACH TAB PO PRN ×3 (05:19→18:18)
[2020-11-02 05:54] LABS: Appearance,Urine Clear (Clear); Bacteria,Urine Rare /hpf; Bilirubin,Urine Negative (Negative); Blood,Urine Large (Negative); Color,Urine Yellow; Glucose,Urine (UA) Negative (Negative); Ketones,Urine Negative (Negative); Leukocyte Esterase,Urine Small (Negative); Mucus,Urine Occasional /hpf; Nitrite,Urine Negative (Negative); PH, Urine 6.5 (5.0-8.0); Protein,Urine 1+ (Negative); RBC,Urine >182 /hpf (0-5); Specific Gravity,Urine 1.019 (1.001-1.035); Squamous Epithelial Cell,Urine <1 /hpf (0-4); Urobilinogen,Urine <2.0 mg/dL (<2.0); WBC,Urine 19 /hpf (0-5)
[2020-11-02 06:29] LABS: Basophils % (A) 0 %; Eosinophils % (A) 0 %; HCT 40.9 % (34.0-46.0); HGB 13.7 gm/dL (11.4-16.0); Lymphocytes # (A) 0.3 k/uL (1.0-4.8); Lymphocytes % (A) 3 %; MCH 29.6 pg (25.0-35.0); MCHC 33.5 g/dL (31.0-37.0); MCV 88.4 fL (80.0-100.0); Monocytes # (A) 0.5 k/uL (0-1.0); Monocytes % (A) 5 %; Neutrophils % (A) 90 %; Platelet Count 309 k/uL (150-450); RBC 4.63 m/uL (3.80-5.40); RDW 14.4 % (11.5-15.5)
[2020-11-02 06:41] LABS: ALT 69 U/L (4-34); AST 65 U/L (14-36); African American GFR (CKD) >90 (>60 ml/min/1.73 sqM); Albumin 3.2 g/dL (3.5-5.0); Alkaline Phosphatase 81 U/L (38-126); Anion Gap 6 mmol/L; Blood Urea Nitrogen 22 mg/dL (7-17); C Reactive Protein 16.7 mg/L (<10.0); Calcium 8.9 mg/dL (8.4-10.2); Carbon Dioxide 30 mmol/L (22-30); Chloride 101 mmol/L (98-107); Glucose 194 mg/dL (74-99); Magnesium 2.1 mg/dL (1.6-2.3); Non-African American GFR(CKD) >90 (>60 ml/min/1.73 sqM); Phosphorus 3.9 mg/dL (2.5-4.5); Potassium 4.2 mmol/L (3.5-5.1); Sodium 137 mmol/L (137-145); Total Bilirubin 0.5 mg/dL (0.2-1.3); Total Protein 6.3 g/dL (6.3-8.2)
[2020-11-02] MEDS: SYMBICORT 160-4.5 MCG INHALER INHALATION SCH ×2 (07:55→20:05)
--- NOTE | 2020-11-02 08:32 | XR ---
EXAMINATION TYPE: XR chest 1V portable DATE OF EXAM: 11/02/2020 Comparison: 11/01/2020 Clinical History: 60-year-old female COVID pneumonia, assess lungs FINDINGS: Dextroconvex curvature of the thoracic and lumbar spines suggesting underlying scoliosis. Left PICC t ip at the lower SVC. Heart upper limits of normal in size. Diffuse interstitial and patchy peripheral and basilar airspace opacities persist. Densities may be slightly less confluent in the right lower lung. No sizable effusion. Impression: Diffuse interstitial and patchy peripheral and basilar airspace infiltrates persist. There may be sli ght improvement in the right lower lung.
[2020-11-02] MEDS: ATORVASTATIN 20 MG TAB PO SCH (08:43)
[2020-11-02] MEDS: TOPIRAMATE 25 MG TAB PO SCH ×2 (08:43→20:28)
[2020-11-02] MEDS: ZINC SULFATE 220 MG CAP PO SCH (08:44)
[2020-11-02] MEDS: lamoTRIgine 100 MG TAB PO SCH ×2 (08:44→20:29)
[2020-11-02] MEDS: CEFEPIME 2 GM in SODIUM CHLORIDE 0.9% 100 ML IVPB SCH ×2 (08:44→20:29)
[2020-11-02] MEDS: ENOXAPARIN 40 MG/0.4 ML SYRINGE SQ SCH (08:44)
[2020-11-02] MEDS: LINAGLIPTIN 5 MG TABLET PO SCH (08:45)
[2020-11-02] MEDS: CHOLECALCIFEROL 25 MCG (1000 IU) TABLET PO SCH (08:45)
[2020-11-02] MEDS: COLCHICINE 0.6 MG EACH PO SCH ×2 (08:45→20:29)
[2020-11-02] MEDS: FAMOTIDINE 20 MG TAB PO SCH ×2 (08:45→20:28)
[2020-11-02] MEDS: ASCORBIC ACID 500 MG TAB PO SCH (08:45)
[2020-11-02] MEDS: POTASSIUM CHLORIDE ER 10 MEQ TAB.ER.PRT PO SCH ×3 (08:45→20:28)
[2020-11-02] MEDS: clonazePAM 0.5 MG TAB PO SCH ×2 (08:45→20:28)
[2020-11-02] MEDS: OXcarbazepine 150 MG TAB PO SCH ×2 (08:45→20:30)
[2020-11-02] MEDS: PREGABALIN 100 MG CAP PO SCH ×2 (08:50→20:28)
[2020-11-02] MEDS: LOSARTAN 50 MG TAB PO SCH (08:50)
--- NOTE | 2020-11-02 09:05 | P.PN ---
Subjective Progress Note Date: 11/02/20 This is a 58-year-old female patient with COVID 19 related pneumonia. The patient has developed progressive worsening and hypoxic respiratory failure secondary to coronavirus/COVID 19 pneumonia. The patient was treated with a combination of treatment including Remdesivir and steroids and the patient was also treated with colchicine. The patient was given anticoagulation with Lovenox. With progressive respiratory failure, the patient was placed on high flow oxygen and subsequently the patient was switched to BiPAP for respiratory support. The patient was initially a DNR/DNI status and somewhat at a later stage she changed her mind and she was consented for short-term intubation mechanical ventilation if needed. She did not want any form of long-term aspiratory support, tracheostomy and feeding tube. The patient currently is on a BiPAP at a pressure of 12/6 cm of water and FiO2 of 100%. Chest x-ray has not shown any significant improvement. For now, the patient is on BiPAP for respira tory support, she is receiving colchicine 0.6 mg by mouth twice a day. She is on Lovenox 40 mg subcu every 12 hours. She is on Levemir insulin 15 units at bedtime in addition to a sliding scale coverage. She is receiving albuterol HFA 4 puffs every 4 hours when necessary and his Symbicort on a 160/4.52 puffs twice a day. The patient is also on IV Solu-Medrol 60 mg every 6 hours. The patient is also on antibiotic coverage with vancomycin. The patient is on BiPAP at a pressure of 12/6 cm of water with an FiO2 of 100%. The chest x-ray shows stable findings. While on the BiPAP, she is able to generate a tidal volume as high as 800. Nevertheless she is quite tachypneic and her minute ventilation is around 18-20 L per minute. Her pulse ox is order of 91%. Even while being given her medication, she seems to be desaturating out of it. Otherwise, she is hemodynamically stable. No chest pain. No altered mentation. No fever. No chills. She was unable to eat and she is currently on TPN for nutritional support. Is a PICC line in the left upper extremity. She remains on IV Solu-Medrol Objective - Vital Signs Vital signs: Vital Signs Temp 98.6 F 11/02/20 08:00 Pulse 92 11/02/20 08:00 Resp 25 H 11/02/20 08:00 BP 117/50 11/02/20 08:00 Pulse Ox 87 L 11/02/20 08:00 Intake & Output 11/01/20 11/02/20 11/02/20 18:59 06:59 18:59 Intake Total 2430 800 270 Output Total 1350 945 210 Balance 1080 -145 60 Weight 84.1 kg 83.9 kg Intake: IV 320 320 20 0.9NS 220 220 20 Cefepime 2 gm In Sodium 100 100 Chloride 0.9% 100 ml @ 25 mls/hr IVPB Q12HR [facility] Rx #:[id number] Intake, IV Titration 1910 480 250 Amount Amino Acid 5%-D15w+Lytes* 1000 120 E* 1,000 ml @ 60 mls/hr IV .BY DURATION [facility] Rx#: [id number] Mvi, Adult No.4 with Vit 660 360 K 10 ml Trace (Conc-1Ml/ Dose) 1 ml In Amino Acid 5%-D15w+Lytes*E* 1,000 ml @ 60 mls/hr IV .BY DURATION [facility] Rx#: [id number] Vancomycin 1,500 mg In 250 250 Sodium Chloride 0.9% 250 ml @ 125 mls/hr IVPB Q12H [facility] Rx#:[id number] Oral 200 Output: Urine 1350 945 210 Other: Voiding Method Indwelling Catheter Indwelling Catheter - Exam Mild respiratory distress, oriented 3. The patient's on BiPAP with settings of IPAP 12/EPAP 6, and 100%. HEENT examination is grossly unremarkable. Mucous membranes are moist. No oral lesions. Neck supple. Full range of motion. No adenopathy thyromegaly or neck vein distention. Cardiovascular examination reveals regular rhythm rate. S1-S2 normal. No S3 or S4. No discernible murmur noted. Heart sounds are distant Lungs reveal coarse bilateral rhonchi, and a few crackles. Breath sounds equal bilaterally but diminished throughout. No wheezes. Breath sounds aren't brady ged compared to the last 2 days examinations. Abdomen soft bowel sounds are heard. No masses or tenderness. Extremities are intact. No cyanosis clubbing or edema. Skin is without rash or lesion. Neurologic examination is brief but nonfocal. - Labs CBC & Chem 7: 11/02/20 06:03 11/02/20 06:03 Labs: Abnormal Lab Results - Last 24 Hours (Table) 11/01/20 11/01/20 11/01/20 Range/Units 11:36 17:17 23:21 Neutrophils # (1.3-7.7) k/uL Lymphocytes # (1.0-4.8) k/uL D-Dimer (<0.60) mg/L FEU BUN (7-17) mg/dL Glucose (74-99) mg/dL POC Glucose (mg/dL) 213 H 258 H 250 H (75-99) mg/dL AST (14-36) U/L ALT (4-34) U/L Lactate Dehydrogenase (313-618) U/L C-Reactive Protein (<10.0) mg/L Albumin (3.5-5.0) g/dL Urine Protein (Negative) Urine Blood (Negative) Ur Leukocyte Esterase (Negative) Urine RBC (0-5) /hpf Urine WBC (0-5) /hpf Urine Bacteria (None) /hpf Urine Mucus (None) /hpf 11/02/20 11/02/20 11/02/20 Range/Units 04:58 05:25 06:03 Neutrophils # (1.3-7.7) k/uL Lymphocytes # (1.0-4.8) k/uL D-Dimer (<0.60) mg/L FEU BUN (7-17) mg/dL Glucose (74-99) mg/dL POC Glucose (mg/dL) 185 H (75-99) mg/dL AST (14-36) U/L ALT (4-34) U/L Lactate Dehydrogenase 878 H (313-618) U/L C-Reactive Protein 16.7 H (<10.0) mg/L Albumin (3.5-5.0) g/dL Urine Protein 1+ H (Negative) Urine Blood Large H (Negative) Ur Leukocyte Esterase Small H (Negative) Urine RBC >182 H (0-5) /hpf Urine WBC 19 H (0-5) /hpf Urine Bacteria Rare H (None) /hpf Urine Mucus Occasional H (None) /hpf 11/02/20 11/02/20 11/02/20 Range/Units 06:03 06:03 06:03 Neutrophils # 9.0 H (1.3-7.7) k/uL Lymphocytes # 0.3 L (1.0-4.8) k/uL D-Dimer 1.95 H (<0.60) mg/L FEU BUN 22 H (7-17) mg/dL Glucose 194 H (74-99) mg/dL POC Glucose (mg/dL) (75-99) mg/dL AST 65 H (14-36) U/L ALT 69 H (4-34) U/L Lactate Dehydrogenase (313-618) U/L C-Reactive Protein (<10.0) mg/L Albumin 3.2 L (3.5-5.0) g/dL Urine Protein (Negative) Urine Blood (Negative) Ur Leukocyte Esterase (Negative) Urine RBC (0-5) /hpf Urine WBC (0-5) /hpf Urine Bacteria (None) /hpf Urine Mucus (None) /hpf Microbiology - Last 24 Hours (Table) 10/28/20 15:41 Blood Culture - Preliminary Blood No Growth after 96 hours Assessment and Plan Plan: #1. Acute on chronic hypoxemic respiratory failure secondary to acute COVID 19 pneumonitis, status post remdesivir, currently on IV Solu-Medrol, and she is also on colchicine and Lovenox today. The d-dimer is at 1.95. Rest of the inflammatory markers show shows a CRP of 16.7 which is lower compared to yesterday and the LDH is down to 878, essentially comparable over the past 1 we ek.. Patient is BIPAP dependent and the patient is receiving TPN for nutritional support. The chest x-ray findings are stable for now. #2. History of COPD #3. Elevated transaminases secondary to COVID 19 infection #4. Type 2 diabetes mellitus #5. History of obstructive sleep apnea syndrome #6. Dyslipidemia #7. History of degenerative joint disease #8. History of bipolar disorder Plan: The patient is able to generate enough tidal volume. I'm going to drop the IPAP down to 10 and will try EPAP of 5 and will continue with FiO2 of 100%. She is able to tolerate, we'll may transition her to high flow oxygen at a later stage. Monitor the minute ventilation. Continue Decadron, continue Lovenox, repeat inflammatory markers, daily chest x-rays, TPN for nutritional support, questionable value of colchicine in the patient's yet we'll give the patient the benefit of the doubt and will continue to follow.
[2020-11-02 11:59] LABS: Glucose,Whole Blood 212 mg/dL (75-99)
[2020-11-02] MEDS: FAT EMULSION 20% 250 ML IV SCH (15:43)
[2020-11-02 17:56] LABS: Glucose,Whole Blood 220 mg/dL (75-99)
[2020-11-02] MEDS: ARIPiprazole 10 MG TAB PO SCH (20:29)
--- NOTE | 2020-11-02 20:39 | P.PN ---
Progress Note - Text Progress Note Date: 11/02/20 Chief Complaint: Short of breath History of presenting complaint: This is a 60-year-old patient who follows with Yajaira Barber. Chronic stable medical conditions include diabetes, fibromyalgia, GERD, hypertension, hyperlipidemia, osteoarthritis, obstructive sleep apnea. She is on 3 L of nasal cannula home. Night has been getting it more often lately. Diabetic peripheral neuropathy, obstructive sleep apnea does not use CPAP, chronic kidney disease, arthritis in multiple joints, bipolar schizoaffective disorder. Patient presents of 1 week of increasing shortness of breath. Cough. Slight phlegm. Has had fever for 2 days. Decrease appetite some headaches no loss of taste or smell. No diarrhea. Body aches all over. Patient tested for COVID 19 in the ER. Still somewhat tired rundown. Admitted with bilateral COVID 19 pneumonia, acute hypoxic respiratory failure, acute COPD exacerbation. Patient was started on dexamethasone, Lovenox, Remdesivir, vitamin C vitamin D and zinc. Pulmonary was consulted. Patient has been requiring BiPAP. On October 28 because of increasing oxygen requirement patient is moved to the ICU. Patient was started on IV cefepime and vancomycin. Given convalescent plasma on October 30. PICC line placed-started on TPN and lipids Today-ICU: Remains on BiPAP at all times. on TPN and lipids. Remains short of breath. Hasn't been out of bed. Sinus rhythm. Review of systems: Was done for constitutional, cardiovascular, GI, pulmonary. relevant finding as above Active Medications Acetaminophen (Acetaminophen Tab 325 Mg Tab) 650 mg PO Q6HR PRN PRN Reason: Fever and/ or Pain Last Admin: 11/01/20 23:44 Dose: 650 mg Documented by: Albuterol Sulfate (Albuterol Hfa Inhaler) 4 puff INHALATION Q4H [facility] Last Admin: 11/02/20 20:04 Dose: 4 puff Documented by: Aripiprazole (Aripiprazole 10 Mg Tab) 10 mg PO HS [facility] Last Admin: 11/02/20 20:29 Dose: 10 mg Documented by: Aripiprazole (Aripiprazole 20 Mg Tab) 20 mg PO DAILY [facility] Last Admin: 11/02/20 08:45 Dose: 20 mg Documented by: Artificial Tears (Artificial Tears-Hypromellose Drops 15 Ml Btl) 1 drops BOTH EYES QID PRN PRN Reason: Dry Eye(s) Last Admin: 10/29/20 18:47 Dose: 1 drops Documented by: Ascorbic Acid (Ascorbic Acid 500 Mg Tab) 500 mg PO DAILY [facility] Last Admin: 11/02/20 08:45 Dose: 500 mg Documented by: Atorvastatin Calcium (Atorvastatin 20 Mg Tab) 20 mg PO DAILY [facility] Last Admin: 11/02/20 08:43 Dose: 20 mg Documented by: Budesonide/Formoterol Fumarate (Symbicort 160-4.5 Mcg Inhaler) 2 puff INHALATION RT-BID [facility] Last Admin: 11/02/20 20:05 Dose: 2 puff Documented by: Cholecalciferol (Cholecalciferol 25 Mcg (1000 Iu) Tablet) 100 mcg PO DAILY [facility] Last Admin: 11/02/20 08:45 Dose: 100 mcg Documented by: Clonazepam (Clonazepam 0.5 Mg Tab) 0.5 mg PO BID [facility] Last Admin: 11/02/20 20:28 Dose: 0.5 mg Documented by: Colchicine (Colchicine 0.6 Mg Each) 0.6 mg PO BID [facility] Last Admin: 11/02/20 20:29 Dose: 0.6 mg Documented by: Enoxaparin Sodium (Enoxaparin 40 Mg/0.4 Ml Syringe) 40 mg SQ DAILY [facility] Famotidine (Famotidine 20 Mg Tab) 20 mg PO BID [facility] Last Admin: 11/02/20 20:28 Dose: 20 mg Documented by: Cefepime HCl 2 gm/ Sodium (Chloride) 100 mls @ 25 mls/hr IVPB Q12HR [facility] Last Admin: 11/02/20 20:29 Dose: 25 mls/hr Documented by: Amino Ac/Electrol/Dextrose/Calcium (Clinimix E 5%-D15% Solution) 1,000 mls @ 60 mls/hr IV .BY DURATION [facility] Last Admin: 11/02/20 01:36 Dose: 60 mls/hr Documented by: Parenteral Vitamin Supplement 10 ml/ Chromium/Copper/Manganese/Seleni/Zn 1 ml/Amino Ac/Electrol/Dextrose/Calcium 1,011 mls @ 60 mls/hr IV .BY DURATION [facility] Last Admin: 11/02/20 15:47 Dose: 60 mls/hr Documented by: Fat Emulsion Intravenous (Lipids 20%) 250 mls @ 20.833 mls/hr IV MoWeFr [facility] Last Admin: 11/02/20 15:43 Dose: 20.833 mls/hr Documented by: Vancomycin HCl 1,500 mg/ (Sodium Chloride) 250 mls @ 125 mls/hr IVPB Q12H [facility] Last Admin: 11/02/20 18:04 Dose: 125 mls/hr Documented by: Insulin Aspart (Insulin Aspart (Novolog) 100 Unit/Ml Vial) 0 unit SQ Q6H [facility]; Protocol Last Admin: 11/02/20 18:04 Dose: 7 unit Documented by: Insulin Detemir (Insulin Detemir (Levemir) 100 Unit/Ml Syr) 22 unit SQ [facility] Lamotrigine (Lamotrigine 100 Mg Tab) 150 mg PO BID [facility] Last Admin: 11/02/20 20:29 Dose: 150 mg Documented by: Linagliptin (Linagliptin 5 Mg Tablet) 5 mg PO DAILY [facility] Last Admin: 11/02/20 08:45 Dose: 5 mg Documented by: Losartan Potassium (Losartan 50 Mg Tab) 50 mg PO DAILY [facility] Last Admin: 11/02/20 08:50 Dose: 50 mg Documented by: Meclizine HCl (Meclizine 25 Mg Tab) 25 mg PO Q8H PRN PRN Reason: Nausea And Vomiting Methylprednisolone Sodium Succinate (Methylprednisolone Sod Succi 125 Mg/2 Ml Vial) 60 mg IV Q6HR [facility] Last Admin: 11/02/20 18:03 Dose: 60 mg Documented by: Miscellaneous Information (Magnesium Replacement Protocol 1 Each Misc) 1 each MISCELLANE DAILY PRN; Protocol PRN Reason: Per Protocol Miscellaneous Information (Potassium Replacement Protocol 1 Each Misc) 1 each MISCELLANE DAILY PRN; Protocol PRN Reason: Per Protocol Miscellaneous Information (Vancomycin Trough Due 1 Each Misc) 0 each MISCELLANE DIRECTED ONE Stop: 11/03/20 05:01 Oxcarbazepine (Oxcarbazepine 150 Mg Tab) 150 mg PO BID [facility] Last Admin: 11/02/20 20:30 Dose: 150 mg Documented by: Oxycodone/Acetaminophen (Oxycodone-Apap 10-325mg 1 Each Tab) 1 each PO Q6H PRN PRN Reason: Pain Last Admin: 11/02/20 18:18 Dose: 1 each Documented by: Potassium Chloride (Potassium Chloride Er 10 Meq Tab.Er.Prt) 10 meq PO TID [facility] Last Admin: 11/02/20 20:28 Dose: 10 meq Documented by: Pregabalin (Pregabalin 100 Mg Cap) 100 mg PO BID [facility] Last Admin: 11/02/20 20:28 Dose: 100 mg Documented by: Sumatriptan Succinate (Sumatriptan Succinate 50 Mg Tab) 100 mg PO BID PRN PRN Reason: Migraine Headache Topiramate (Topiramate 25 Mg Tab) 50 mg PO BID [facility] Last Admin: 11/02/20 20:28 Dose: 50 mg Documented by: Zinc Sulfate (Zinc Sulfate 220 Mg Cap) 220 mg PO DAILY [facility] Last Admin: 11/02/20 08:44 Dose: 220 mg Documented by: Past medical history to include: COPD, diabetes, fibromyalgia, GERD, hyperlipidemia, hypertension, obstructive sleep apnea does not use CPAP, home oxygen 3 L normal. Night, diabetic perip heral neuropathy, chronic kidney disease, bipolar depression, schizoaffective disorder. Social history: Lives with her daughter. Disabled. Home oxygen. Smoked from 9065 through 2009. In the past used several street drugs but not so since 1989. Physical examination: VITAL SIGNS: 98.6, 24, 111/57, 91% on 100% BiPAP. GENERAL: Reclining in bed, short of breath, awake, using smart phone Psychiatry: AO 3, mood and affect anxious Neurological: Moving all 4 limbs. Rest of exam as per pulmonary and nursing INVESTIGATIONS, reviewed in the clinical context: November 02: White count 10 lymphocytes 0.3 d-dimer 1.95 CRP 16.7 November 01: Potassium 4.1 creatinine 0.65 CRP 33.4 Fabry 6: D-dimer 1.03 CRP 74 October 5: CRP 201.7 October 29: D-dimer 0.65 CRP 179 sodium 131 potassium 3.3 white count October 3: D-dimer 0.78 CRP 169 pro-calcitonin 0.38 Chest x-ray from yesterday-scattered infiltrates Admission labs: White count 7.2 hemoglobin 15.1 decreased lymphocytes d-dimer 0.85 potassium 3.3 creatinine 0.90 glucose 205 EST 106 ALT 103 CRP 37.2 procalcitonin 0.27 Influenza type A, type B both not detected. RSV P/Cr-not detected. Coronavirus [PCR]-detected EKG tracing personally reviewed by me-normal sinus rhythm some slight ST segment changes Chest x-ray film personally reviewed by me-bilateral basilar infiltrates Assessment: -Bilateral COVID 19 pneumonia causing sepsis. Slow to respond. Has received Remdesivir. Convalescent plasma. On colchicine. Change from dexamethasone to IV Solu-Medrol on October 30. -Also being covered for secondary bacterial infection with antibiotics. -Acute COPD exacerbation in an [id number] to respond -acute hypoxic respiratory failure, requiring BiPAP-slow to respond -Diabetes mellitus type 2, uncontrolled with hyperglycemia from steroids -Chronic fibromyalgia -GERD -Essential hypertension -Hyperlipidemia -Obstructive sleep apnea does not use CPAP -Diabetic peripheral neuropathy -Primary osteoarthritis of multiple joints -TPN and lipids Plan: IV cefepime, vancomycin. Requiring BiPAP-at all times. On TPN and lipids. Cutback on Solu-Medrol to 40 mg IV every 8. Spoke to the nurse and patient to sit the patient had the side of the bed.
[2020-11-02] MEDS ORDERED: INSULIN DETEMIR (LEVEMIR) 100 UNIT/ML SYR SQ SCH (21:00)
--- NOTE | 2020-11-02 22:16 | P.PN ---
Progress Note - Text Progress Note Date: 11/02/20 REASON FOR FOLLOWUP: Pneumonia. INTERVAL HISTORY: Patient is afebrile. The patient is hemodynamically stable, Pt still requiring BiPAP for respiratory support . No vomiting or diarrhea has been reported. PHYSICAL EXAMINATION: Blood pressure is 130/50 with a pulse of 70, temperature 98. She is 91% on 100% BIPAP. General description is a middle-aged female lying in bed in no distress. Respiratory system: Unlabored breathing. coarse breath sounds. No wheeze. Heart S1, S2. Regular rate and rhythm. Abdomen: Soft, no tenderness. LABS: reviewed DIAGNOSTIC IMPRESSION AND PLAN: Patient with acute respiratory failure which is multifactorial, the patient did have a component of Covid 19 pneumonia with subsequent worsening respiratory status concerning for possible bacterial component in this patient currently covered with vancomycin and cefepime. We will try to obtain a sputum to narrow down antibiotics and monitor clinical course closely.
--- NOTE | 2020-11-02 23:35 | XR ---
EXAMINATION TYPE: XR chest 1V portable DATE OF EXAM: 11/02/2020 COMPARISON: Today HISTORY: Short of breath TECHNIQUE: FINDINGS: There is coarse interstitial edema throughout the lungs. There is some coalescent infiltrat e left lung base. There are chest leads. IMPRESSION: There is moderate pulmonary interstitial edema that could relate to heart failure or RDS that is not changed compared to the exam this morning.
[2020-11-03 00:01] LABS: Glucose,Whole Blood 240 mg/dL (75-99)
[2020-11-03] MEDS: methylPREDNISolone SOD SUCCI 40 MG/ML 1 ML VIAL IV SCH ×4 (00:01→23:36)
[2020-11-03] MEDS: oxyCODONE-APAP 10-325MG 1 EACH TAB PO PRN ×4 (00:01→18:58)
[2020-11-03] MEDS: INSULIN ASPART (NovoLOG) 100 UNIT/ML VIAL SQ SCH ×5 (00:14→23:36)
[2020-11-03] MEDS: ALBUTEROL HFA INHALER INHALATION SCH ×5 (04:15→19:21)
[2020-11-03] MEDS ORDERED: VANCOMYCIN TROUGH DUE 1 EACH MISC MISCELLANE ONE (05:00)
[2020-11-03 06:48] LABS: Glucose,Whole Blood 218 mg/dL (75-99)
[2020-11-03 06:54] LABS: African American GFR (CKD) >90 (>60 ml/min/1.73 sqM); Anion Gap 5 mmol/L; Blood Urea Nitrogen 19 mg/dL (7-17); C Reactive Protein 13.6 mg/L (<10.0); Calcium 9.2 mg/dL (8.4-10.2); Carbon Dioxide 34 mmol/L (22-30); Chloride 99 mmol/L (98-107); Glucose 233 mg/dL (74-99); LDH 864 U/L (313-618); Magnesium 2.2 mg/dL (1.6-2.3); Non-African American GFR(CKD) 89 (>60 ml/min/1.73 sqM); Phosphorus 3.6 mg/dL (2.5-4.5); Sodium 138 mmol/L (137-145)
[2020-11-03] MEDS: SYMBICORT 160-4.5 MCG INHALER INHALATION SCH ×2 (07:31→19:22)
[2020-11-03] MEDS: VANCOMYCIN 1,500 MG in SODIUM CHLORIDE 0.9% 250 ML IVPB SCH ×2 (07:35→18:17)
[2020-11-03] MEDS: FAMOTIDINE 20 MG TAB PO SCH ×2 (08:30→20:55)
[2020-11-03] MEDS: POTASSIUM CHLORIDE ER 10 MEQ TAB.ER.PRT PO SCH ×3 (08:30→20:55)
[2020-11-03] MEDS: ZINC SULFATE 220 MG CAP PO SCH (08:30)
[2020-11-03] MEDS: CHOLECALCIFEROL 25 MCG (1000 IU) TABLET PO SCH (08:30)
[2020-11-03] MEDS: clonazePAM 0.5 MG TAB PO SCH ×2 (08:31→20:56)
[2020-11-03] MEDS: CEFEPIME 2 GM in SODIUM CHLORIDE 0.9% 100 ML IVPB SCH ×2 (08:31→20:54)
[2020-11-03] MEDS: PREGABALIN 100 MG CAP PO SCH ×2 (08:31→20:55)
[2020-11-03] MEDS: ASCORBIC ACID 500 MG TAB PO SCH (08:31)
[2020-11-03] MEDS: ATORVASTATIN 20 MG TAB PO SCH (08:31)
[2020-11-03] MEDS: lamoTRIgine 100 MG TAB PO SCH ×2 (08:31→20:55)
[2020-11-03] MEDS: LOSARTAN 50 MG TAB PO SCH (08:31)
[2020-11-03] MEDS: LINAGLIPTIN 5 MG TABLET PO SCH (08:32)
[2020-11-03] MEDS: COLCHICINE 0.6 MG EACH PO SCH ×2 (08:32→20:56)
[2020-11-03] MEDS: OXcarbazepine 150 MG TAB PO SCH ×2 (08:33→20:56)
[2020-11-03] MEDS: TOPIRAMATE 25 MG TAB PO SCH ×2 (08:33→20:55)
[2020-11-03] MEDS ORDERED: ENOXAPARIN 40 MG/0.4 ML SYRINGE SQ SCH (09:00)
[2020-11-03] MEDS: 1: AMINO ACID 5%-D15W+LYTES*E* 1,000 ML 2: MVI, ADULT NO.4 WITH VIT K 10 ML, TRACE (CON IV SCH ×3 (09:11)
--- NOTE | 2020-11-03 09:35 | P.PN ---
Subjective Progress Note Date: 11/03/20 This is a 58-year-old female patient with COVID 19 related pneumonia. The patient has developed progressive worsening and hypoxic respiratory failure secondary to coronavirus/COVID 19 pneumonia. The patient was treated with a combination of treatment including Remdesivir and steroids and the patient was also treated with colchicine. The patient was given anticoagulation with Lovenox. With progressive respiratory failure, the patient was placed on high flow oxygen and subsequently the patient was switched to BiPAP for respiratory support. The patient was initially a DNR/DNI status and somewhat at a later stage she changed her mind and she was consented for short-term intubation mechanical ventilation if needed. She did not want any form of long-term aspiratory support, tracheostomy and feeding tube. The patient currently is on a BiPAP at a pressure of 12/6 cm of water and FiO2 of 100%. Chest x-ray has not shown any significant improvement. For now, the patient is on BiPAP for respir atory support, she is receiving colchicine 0.6 mg by mouth twice a day. She is on Lovenox 40 mg subcu every 12 hours. She is on Levemir insulin 15 units at bedtime in addition to a sliding scale coverage. She is receiving albuterol HFA 4 puffs every 4 hours when necessary and his Symbicort on a 160/4.52 puffs twice a day. The patient is also on IV Solu-Medrol 60 mg every 6 hours. The patient is also on antibiotic coverage with vancomycin. The patient is on BiPAP at a pressure of 12/6 cm of water with an FiO2 of 100%. The chest x-ray shows stable findings. While on the BiPAP, she is able to generate a tidal volume as high as 800. Nevertheless she is quite tachypneic and her minute ventilation is around 18-20 L per minute. Her pulse ox is order of 91%. Even while being given her medication, she seems to be desaturating out of it. Otherwise, she is hemodynamically stable. No chest pain. No altered mentation. No fever. No chills. She was unable to eat and she is currently on TPN for nutritional support. Is a PICC line in the left upper extremity. She remains on IV Solu-Medrol On 11/03/2020, the patient is being seen for a follow-up in the ICU. The patient is essentially the same as yesterday. I did some adjustment on a BiPAP setting knowing that the patient was able to generate adequate tidal volumes. Based on that, I put on a pressure of 10/5 cm of water and FiO2 started on the percent. On today's evaluation, while off the BiPAP mask for less than a mini te, the patient desaturated to the low 80s and she seems to be very much BiPAP dependent for now. The patient is sexually yesterday evening and the chest x- ray showed diffuse bilateral pulmonary infiltrates which is essentially unchanged compared to the previous chest x-ray. There may be a small effusion the left lung. In terms of her blood work, the patient's d-dimer is at 3.21 which is higher compared to yesterday. She also has an LDH which is a 64 which is comparable to yesterday and his CRP is down to 13.6, slightly improved compared to yesterday. Her blood cultures of been negative. The white cell count was not elevated from yesterday. She remains on IV Solu-Medrol 60 mg every 6 hours. She is also on a combination of colchicine 0.6 mg by mouth twice a day, Lovenox 40 mg subcu daily, zinc and the patient also is on a combination antibiotics including cefepime and vancomycin due to suspicion for a superimposed bacterial infection. Objective - Vital Signs Vital signs: Vital Signs Temp 98.7 F 11/03/20 08:00 Pulse 72 11/03/20 09:00 Resp 24 11/03/20 09:00 BP 106/58 11/03/20 09:00 Pulse Ox 89 L 11/03/20 09:00 Intake & Output 11/02/20 11/03/20 11/03/20 18:59 06:59 18:59 Intake Total 2021 320 160 Output Total 1340 1150 350 Balance 682 -830 -190 Weight 83.5 kg Intake: IV 250 220 160 0.9NS 200 220 60 Cefepime 2 gm In Sodium 50 100 Chloride 0.9% 100 ml @ 25 mls/hr IVPB Q12HR [facility] Rx #:[id number] Intake, IV Titration 1772 Amount Amino Acid 5%-D15w+Lytes* 1000 E* 1,000 ml @ 60 mls/hr IV .BY DURATION RAE Rx#: [id number] Fat Emulsion 20% 250 ml @ 42 20.833 mls/hr IV MoWeFr RAE Rx#:[id number] Mvi, Adult No.4 with Vit 480 K 10 ml Trace (Conc-1Ml/ Dose) 1 ml In Amino Acid 5%-D15w+Lytes*E* 1,000 ml @ 60 mls/hr IV .BY DURATION RAE Rx#: [id number] Vancomycin 1,500 mg In 250 Sodium Chloride 0.9% 250 ml @ 125 mls/hr IVPB Q12H RAE Rx#:[id number] Oral 100 Output: Urine 1340 1150 350 Other: Voiding Method Indwelling Catheter Indwelling Catheter Indwelling Catheter - Exam Mild respiratory distress, oriented 3. The patient's on BiPAP with settings of IPAP 10/EPAP 5, and 100%. HEENT examination is grossly unremarkable. Mucous membranes are moist. No oral lesions. Neck supple. Full range of motion. No adenopathy thyromegaly or neck vein distention. Cardiovascular examination reveals regular rhythm rate. S1-S2 normal. No S3 or S4. No discernible murmur noted. Heart sounds are distant Lungs reveal coarse bilateral rhonchi, and a few crackles. Breath sounds equal bilaterally but diminished throughout. No wheezes. Breath sounds aren't changed compared to the last 2 days examinations. Abdomen soft bowel sounds are heard. No masses or tenderness. Extremities are intact. No cyanosis clubbing or edema. Skin is without rash or lesion. Neurologic examination is brief but nonfocal. - Labs CBC & Chem 7: 11/02/20 06:03 11/03/20 05:21 Labs: Abnormal Lab Results - Last 24 Hours (Table) 11/02/20 11/02/20 11/02/20 Range/Units 11:58 17:44 23:59 D-Dimer (<0.60) mg/L FEU Carbon Dioxide (22-30) mmol/L BUN (7-17) mg/dL Glucose (74-99) mg/dL POC Glucose (mg/dL) 212 H 220 H 240 H (75-99) mg/dL Lactate Dehydrogenase (313-618) U/L C-Reactive Protein (<10.0) mg/L 11/03/20 11/03/20 11/03/20 Range/Units 05:21 05:21 06:47 D-Dimer 3.21 H (<0.60) mg/L FEU Carbon Dioxide 34 H (22-30) mmol/L BUN 19 H (7-17) mg/dL Glucose 233 H (74-99) mg/dL POC Glucose (mg/dL) 218 H (75-99) mg/dL Lactate Dehydrogenase 864 H (313-618) U/L C-Reactive Protein 13.6 H (<10.0) mg/L Microbiology - Last 24 Hours (Table) 10/28/20 15:41 Blood Culture - Preliminary Blood No Growth after 120 hours 11/02/20 05:25 Urine Culture - Preliminary Urine,Voided Assessment and Plan Plan: #1. Acute on chronic hypoxemic respiratory failure secondary to acute COVID 19 pneumonitis, status post remdesivir, currently on IV Solu-Medrol, and she is also on colchicine and Lovenox today. The d-dimer is at 3.21. Rest of the inflammatory markers show shows a CRP of 13 which is lower compared to yesterday and the LDH is down to 864, essentially comparable over the past 1 week.. Patient is BIPAP dependent and the patient is receiving TPN for nutritional support. The chest x-ray findings are stable for now. No major interval change compared to yesterday. The patient's BiPAP setting is currently 10/5 with an FiO2 of 100%. Chest x-ray findings are stable and the patient is seen broad- spectrum antibiotics for a suspected superinfection although this is unclear. The pro calcitonin level was also consistently low in the last one was 0.3. #2. History of COPD #3. Elevated transaminases secondary to COVID 19 infection #4. Type 2 diabetes mellitus #5. History of obstructive sleep apnea syndrome #6. Dyslipidemia #7. History of degenerative joint disease #8. History of bipolar disorder Plan: The patient is on BiPAP and will continue the same setting IPAP down to 10 and will try EPAP of 5 and will continue with FiO2 of 100%. Unable to tolerate high flow oxygen for now. Monitor the minute ventilation. Continue Solu-Medrol, continue Lovenox, repeat inflammatory markers, daily chest x-rays, TPN for nutritional support, questionable value of colchicine in the patient's yet we'll give the patient the benefit of the doubt and will continue to follow. Condition is critical. The patient will be kept. ICU. She has limited reserving the patient desaturates very easily once off the BiPAP. The value of antibiotics is questionable. We'll raise this with infectious disease and discuss. Increase the Lovenox 40 mg subcu every 12 hours, we'll continue to follow make further recommendations based on her progress. Should be kept in ICU for now.
[2020-11-03 11:59] LABS: Glucose,Whole Blood 152 mg/dL (75-99)
--- NOTE | 2020-11-03 12:48 | PN ---
PROGRESS NOTE DATE OF SERVICE: 11/03/2020 REASON FOR FOLLOWUP: Pneumonia. INTERVAL HISTORY: The patient is currently afebrile. The patient is hemodynamically stable on pressor support. The patient remains to be BiPAP dependent and currently maintaining saturations are 90%. No vomiting or diarrhea or any other changes reported by nursing staff. PHYSICAL EXAMINATION: Blood pressure 112/68 with a pulse of 105, temperature 98.5. She is 90% on 100% BiPAP. General description is a middle-aged female lying in bed in no distress. RESPIRATORY SYSTEM: Unlabored breathing with coarse breath sounds bilaterally. ABDOMEN: Soft. EXTREMITIES: No edema of the feet. LABS: BUN of 19, creatinine 0.73. Vancomycin trough is 14.5. CRP is 13.6. Blood culture has been negative. Chest x-ray this morning, moderate pulmonary interstitial edema could be related to heart failure or RDS. No change compared to yesterday. DIAGNOSTIC IMPRESSION AND PLAN: Patient admitted to hospital with acute COVID-19 pneumonia, subsequently did have significant worsening and new fever with concern for possible secondary bacterial pneumonia with elevated procalcitonin. Patient covered with vancomycin and cefepime. minimal improvement. Continue normal supportive care. Prognosis remains to be guarded. MMODL / IJN: [id number] /
--- NOTE | 2020-11-03 17:46 | P.PN ---
Progress Note - Text Progress Note Date: 11/03/20 Chief Complaint: Short of breath History of presenting complaint: This is a 60-year-old patient who follows with Yajaira Barber. Chronic stable medical conditions include diabetes, fibromyalgia, GERD, hypertension, hyperlipidemia, osteoarthritis, obstructive sleep apnea. She is on 3 L of nasal cannula home. Night has been getting it more often lately. Diabetic peripheral neuropathy, obstructive sleep apnea does not use CPAP, chronic kidney disease, arthritis in multiple joints, bipolar schizoaffective disorder. Patient presents of 1 week of increasing shortness of breath. Cough. Slight phlegm. Has had fever for 2 days. Decrease appetite some headaches no loss of taste or smell. No diarrhea. Body aches all over. Patient tested for COVID 19 in the ER. Still somewhat tired rundown. Admitted with bilateral COVID 19 pneumonia, acute hypoxic respiratory failure, acute COPD exacerbation. Patient was started on dexamethasone, Lovenox, Remdesivir, vitamin C vitamin D and zinc. Pulmonary was consulted. Patient has been requiring BiPAP. On October 28 because of increasing oxygen requirement patient is moved to the ICU. Patient was started on IV cefepime and vancomycin. Given convalescent plasma on October 30. PICC line placed-started on TPN and lipids Today-ICU: Remains failure on BiPAP. Laying in bed. Able to answer questions. Getting TPN and lipids. Review of systems: Was done for constitutional, cardiovascular, GI, pulmonary. relevant finding as above Active Medications Acetaminophen (Acetaminophen Tab 325 Mg Tab) 650 mg PO Q6HR PRN PRN Reason: Fever and/ or Pain Last Admin: 11/01/20 23:44 Dose: 650 mg Documented by: Albuterol Sulfate (Albuterol Hfa Inhaler) 4 puff INHALATION Q4H COUNT INCLUDES THE [facility] Last Admin: 11/03/20 16:39 Dose: 4 puff Documented by: Aripiprazole (Aripiprazole 10 Mg Tab) 10 mg PO HS COUNT INCLUDES THE [facility] Last Admin: 11/02/20 20:29 Dose: 10 mg Documented by: Aripiprazole (Aripiprazole 20 Mg Tab) 20 mg PO DAILY COUNT INCLUDES THE [facility] Last Admin: 11/03/20 08:32 Dose: 20 mg Documented by: Artificial Tears (Artificial Tears-Hypromellose Drops 15 Ml Btl) 1 drops BOTH EYES QID PRN PRN Reason: Dry Eye(s) Last Admin: 10/29/20 18:47 Dose: 1 drops Documented by: Ascorbic Acid (Ascorbic Acid 500 Mg Tab) 500 mg PO DAILY COUNT INCLUDES THE [facility] Last Admin: 11/03/20 08:31 Dose: 500 mg Documented by: Atorvastatin Calcium (Atorvastatin 20 Mg Tab) 20 mg PO DAILY COUNT INCLUDES THE [facility] Last Admin: 11/03/20 08:31 Dose: 20 mg Documented by: Budesonide/Formoterol Fumarate (Symbicort 160-4.5 Mcg Inhaler) 2 puff INHALATION RT-BID COUNT INCLUDES THE [facility] Last Admin: 11/03/20 07:31 Dose: 2 puff Documented by: Cholecalciferol (Cholecalciferol 25 Mcg (1000 Iu) Tablet) 100 mcg PO DAILY COUNT INCLUDES THE [facility] Last Admin: 11/03/20 08:30 Dose: 100 mcg Documented by: Clonazepam (Clonazepam 0.5 Mg Tab) 0.5 mg PO BID COUNT INCLUDES THE [facility] Last Admin: 11/03/20 08:31 Dose: 0.5 mg Documented by: Colchicine (Colchicine 0.6 Mg Each) 0.6 mg PO BID COUNT INCLUDES THE [facility] Last Admin: 11/03/20 08:32 Dose: 0.6 mg Documented by: Enoxaparin Sodium (Enoxaparin 40 Mg/0.4 Ml Syringe) 40 mg SQ BID COUNT INCLUDES THE [facility] Famotidine (Famotidine 20 Mg Tab) 20 mg PO BID COUNT INCLUDES THE [facility] Last Admin: 11/03/20 08:30 Dose: 20 mg Documented by: Cefepime HCl 2 gm/ Sodium (Chloride) 100 mls @ 25 mls/hr IVPB Q12HR COUNT INCLUDES THE [facility] Last Admin: 11/03/20 08:31 Dose: 25 mls/hr Documented by: Amino Ac/Electrol/Dextrose/Calcium (Clinimix E 5%-D15% Solution) 1,000 mls @ 60 mls/hr IV .BY DURATION COUNT INCLUDES THE [facility] Last Admin: 11/03/20 09:11 Dose: 60 mls/hr Documented by: Parenteral Vitamin Supplement 10 ml/ Chromium/Copper/Manganese/Seleni/Zn 1 ml/Amino Ac/Electrol/Dextrose/Calcium 1,011 mls @ 60 mls/hr IV .BY DURATION COUNT INCLUDES THE [facility] Last Admin: 11/02/20 15:47 Dose: 60 mls/hr Documented by: Fat Emulsion Intravenous (Lipids 20%) 250 mls @ 20.833 mls/hr IV MoWeFr COUNT INCLUDES THE [facility] Last Admin: 11/02/20 15:43 Dose: 20.833 mls/hr Documented by: Vancomycin HCl 1,500 mg/ (Sodium Chloride) 250 mls @ 125 mls/hr IVPB Q12H COUNT INCLUDES THE [facility] Last Admin: 11/03/20 07:35 Dose: 125 mls/hr Documented by: Insulin Aspart (Insulin Aspart (Novolog) 100 Unit/Ml Vial) 0 unit SQ Q6H COUNT INCLUDES THE [facility]; Protocol Last Admin: 11/03/20 12:02 Dose: 2 unit Documented by: Insulin Detemir (Insulin Detemir (Levemir) 100 Unit/Ml Syr) 22 unit SQ HS COUNT INCLUDES THE [facility] Last Admin: 11/02/20 21:28 Dose: 22 unit Documented by: Lamotrigine (Lamotrigine 100 Mg Tab) 150 mg PO BID COUNT INCLUDES THE [facility] Last Admin: 11/03/20 08:31 Dose: 150 mg Documented by: Linagliptin (Linagliptin 5 Mg Tablet) 5 mg PO DAILY COUNT INCLUDES THE [facility] Last Admin: 11/03/20 08:32 Dose: 5 mg Documented by: Losartan Potassium (Losartan 50 Mg Tab) 50 mg PO DAILY COUNT INCLUDES THE [facility] Last Admin: 11/03/20 08:31 Dose: 50 mg Documented by: Meclizine HCl (Meclizine 25 Mg Tab) 25 mg PO Q8H PRN PRN Reason: Nausea And Vomiting Methylprednisolone Sodium Succinate (Methylprednisolone Sod Succi 40 Mg/Ml 1 Ml Vial) 40 mg IV Q8HR COUNT INCLUDES THE [facility] Last Admin: 11/03/20 15:50 Dose: 40 mg Documented by: Miscellaneous Information (Magnesium Replacement Protocol 1 Each Misc) 1 each MISCELLANE DAILY PRN; Protocol PRN Reason: Per Protocol Miscellaneous Information (Potassium Replacement Protocol 1 Each Misc) 1 each MISCELLANE DAILY PRN; Protocol PRN Reason: Per Protocol Oxcarbazepine (Oxcarbazepine 150 Mg Tab) 150 mg PO BID COUNT INCLUDES THE [facility] Last Admin: 11/03/20 08:33 Dose: 150 mg Documented by: Oxycodone/Acetaminophen (Oxycodone-Apap 10-325mg 1 Each Tab) 1 each PO Q6H PRN PRN Reason: Pain Last Admin: 11/03/20 12:02 Dose: 1 each Documented by: Potassium Chloride (Potassium Chloride Er 10 Meq Tab.Er.Prt) 10 meq PO TID COUNT INCLUDES THE [facility] Last Admin: 11/03/20 15:50 Dose: 10 meq Documented by: Pregabalin (Pregabalin 100 Mg Cap) 100 mg PO BID COUNT INCLUDES THE [facility] Last Admin: 11/03/20 08:31 Dose: 100 mg Documented by: Sumatriptan Succinate (Sumatriptan Succinate 50 Mg Tab) 100 mg PO BID PRN PRN Reason: Migraine Headache Topiramate (Topiramate 25 Mg Tab) 50 mg PO BID COUNT INCLUDES THE [facility] Last Admin: 11/03/20 08:33 Dose: 50 mg Documented by: Zinc Sulfate (Zinc Sulfate 220 Mg Cap) 220 mg PO DAILY COUNT INCLUDES THE [facility] Last Admin: 11/03/20 08:30 Dose: 220 mg Documented by: Past medical history to include: COPD, diabetes, fibromyalgia, GERD, hyperlipidemia, hypertension, obstructive sleep apnea does not use CPAP, home oxygen 3 L normal. Night, diabetic peripheral neuropathy, chronic kidney disease, bipolar depression, schizoaffective disorder. Social history: Lives with her daughter. Disabled. Home oxygen. Smoked from 9065 through 2009. In the past used several street drugs but not so since 1989. Physical examination: VITAL SIGNS: 98.4, 86, 25, 106/48, 90% on BiPAP GENERAL: Reclining in bed, short of breath, awake, Psychiatry: AO 3, mood and affect anxious Neurological: Moving all 4 limbs. Rest of exam as per pulmonary and nursing INVESTIGATIONS, reviewed in the clinical context: November 03: D-dimer 3.21 CRP 13.6 November 02: White count 10 lymphocytes 0.3 d-dimer 1.95 CRP 16.7 November 01: Potassium 4.1 creatinine 0.65 CRP 33.4 Fabry 6: D-dimer 1.03 CRP 74 October 5: CRP 201.7 October 29: D-dimer 0.65 CRP 179 sodium 131 potassium 3.3 white count 32 October 3: D-dimer 0.78 CRP 169 pro-calcitonin 0.38 Chest x-ray from yesterday-scattered infiltrates Admission labs: White count 7.2 hemoglobin 15.1 decreased lymphocytes d-dimer 0.85 potassium 3.3 creatinine 0.90 glucose 205 EST 106 ALT 103 CRP 37.2 procalcitonin 0.27 Influenza type A, type B both not detected. RSV P/Cr-not detected. Coronavirus [PCR]-detected EKG tracing personally reviewed by me-normal sinus rhythm some slight ST segment changes Chest x-ray film personally reviewed by me-bilateral basilar infiltrates Assessment: -Bilateral COVID 19 pneumonia causing sepsis. Slow to respond. Has received Remdesivir. Convalescent plasma. On colchicine. Change from dexamethasone to IV Solu-Medrol on October 30. Subcu Lovenox -Also being covered for secondary bacterial infection with antibiotics. -Acute COPD exacerbation in an [id number] to respond -acute hypoxic respiratory failure, requiring BiPAP-slow to respond -Diabetes mellitus type 2, uncontrolled with hyperglycemia from steroids -Chronic fibromyalgia -GERD -Essential hypertension -Hyperlipidemia -Obstructive sleep apnea does not use CPAP -Diabetic peripheral neuropathy -Primary osteoarthritis of multiple joints -TPN and lipids Plan: IV cefepime, vancomycin. Requiring BiPAP-at all times. On TPN and lipids. IV Solu-Medrol colchicine. Increase Levemir to 26 units at night. Discussed with patient.
[2020-11-03 17:59] LABS: Glucose,Whole Blood 212 mg/dL (75-99)
[2020-11-03] MEDS: ENOXAPARIN 40 MG/0.4 ML SYRINGE SQ SCH (20:54)
[2020-11-03] MEDS: ARIPiprazole 10 MG TAB PO SCH (20:56)
[2020-11-03] MEDS ORDERED: INSULIN DETEMIR (LEVEMIR) 100 UNIT/ML SYR SQ SCH (21:00)
[2020-11-03 23:28] LABS: Glucose,Whole Blood 177 mg/dL (75-99)
[2020-11-03] MEDS: ACETAMINOPHEN TAB 325 MG TAB PO PRN (23:48)
[2020-11-04] MEDS: ALBUTEROL HFA INHALER INHALATION SCH ×6 (00:46→20:59)
[2020-11-04] MEDS: oxyCODONE-APAP 10-325MG 1 EACH TAB PO PRN ×4 (02:43→20:52)
[2020-11-04] MEDS: 1: AMINO ACID 5%-D15W+LYTES*E* 1,000 ML 2: MVI, ADULT NO.4 WITH VIT K 10 ML, TRACE (CON IV SCH ×9 (02:44→17:37)
[2020-11-04 04:22] LABS: African American GFR (CKD) >90 (>60 ml/min/1.73 sqM); Anion Gap 8 mmol/L; Blood Urea Nitrogen 20 mg/dL (7-17); C Reactive Protein 40.1 mg/L (<10.0); Carbon Dioxide 29 mmol/L (22-30); Chloride 101 mmol/L (98-107); Glucose 154 mg/dL (74-99); LDH 911 U/L (313-618); Magnesium 2.1 mg/dL (1.6-2.3); Non-African American GFR(CKD) >90 (>60 ml/min/1.73 sqM); Phosphorus 3.7 mg/dL (2.5-4.5); Potassium 4.8 mmol/L (3.5-5.1); Sodium 138 mmol/L (137-145)
[2020-11-04] MEDS: INSULIN ASPART (NovoLOG) 100 UNIT/ML VIAL SQ SCH ×3 (05:23→17:40)
[2020-11-04 05:24] LABS: Glucose,Whole Blood 244 mg/dL (75-99)
[2020-11-04] MEDS: VANCOMYCIN 1,500 MG in SODIUM CHLORIDE 0.9% 250 ML IVPB SCH ×2 (05:24→17:41)
--- NOTE | 2020-11-04 07:46 | XR ---
EXAMINATION TYPE: XR chest 1V portable DATE OF EXAM: 11/04/2020 Comparison: 11/02/2020 Clinical History: 60-year-old female assess lungs, covid Findings: Left PICC tip at the mid to lower SVC. Heart upper limits of normal size. Diffuse interstitial densit y in fact a confluent peripheral and basilar opacities persist without significant change. Aeration m ay be minimally worsened at the peripheral right base. Impression: Continued diffuse interstitial as well as patchy and confluent peripheral and basilar airspace diseas e. Aeration may be slightly worsened at the peripheral right base.
[2020-11-04] MEDS: FAMOTIDINE 20 MG TAB PO SCH ×2 (07:58→21:04)
[2020-11-04] MEDS: clonazePAM 0.5 MG TAB PO SCH ×2 (07:58→20:54)
[2020-11-04] MEDS: CHOLECALCIFEROL 25 MCG (1000 IU) TABLET PO SCH (07:58)
[2020-11-04] MEDS: ASCORBIC ACID 500 MG TAB PO SCH (07:58)
[2020-11-04] MEDS: lamoTRIgine 100 MG TAB PO SCH ×2 (07:59→20:55)
[2020-11-04] MEDS: COLCHICINE 0.6 MG EACH PO SCH ×2 (08:02→20:54)
[2020-11-04] MEDS: SYMBICORT 160-4.5 MCG INHALER INHALATION SCH ×2 (08:24→21:04)
[2020-11-04] MEDS: CEFEPIME 2 GM in SODIUM CHLORIDE 0.9% 100 ML IVPB SCH ×2 (08:33→20:54)
[2020-11-04] MEDS: methylPREDNISolone SOD SUCCI 40 MG/ML 1 ML VIAL IV SCH ×2 (09:06→16:07)
[2020-11-04] MEDS: LINAGLIPTIN 5 MG TABLET PO SCH (09:06)
[2020-11-04] MEDS: ENOXAPARIN 40 MG/0.4 ML SYRINGE SQ SCH (09:07)
[2020-11-04] MEDS: TOPIRAMATE 25 MG TAB PO SCH ×2 (09:07→20:54)
[2020-11-04] MEDS: LOSARTAN 50 MG TAB PO SCH (09:08)
[2020-11-04] MEDS: ATORVASTATIN 20 MG TAB PO SCH (09:08)
[2020-11-04] MEDS: OXcarbazepine 150 MG TAB PO SCH ×2 (09:08→20:54)
[2020-11-04] MEDS: PREGABALIN 100 MG CAP PO SCH ×2 (09:13→20:54)
[2020-11-04] MEDS: POTASSIUM CHLORIDE ER 10 MEQ TAB.ER.PRT PO SCH ×2 (09:13→10:30)
[2020-11-04] MEDS: ZINC SULFATE 220 MG CAP PO SCH (09:13)
--- NOTE | 2020-11-04 09:49 | P.PN ---
Subjective Progress Note Date: 11/04/20 This is a 58-year-old female patient with COVID 19 related pneumonia. The patient has developed progressive worsening and hypoxic respiratory failure secondary to coronavirus/COVID 19 pneumonia. The patient was treated with a combination of treatment including Remdesivir and steroids and the patient was also treated with colchicine. The patient was given anticoagulation with Lovenox. With progressive respiratory failure, the patient was placed on high flow oxygen and subsequently the patient was switched to BiPAP for respiratory support. The patient was initially a DNR/DNI status and somewhat at a later stage she changed her mind and she was consented for short-term intubation mechanical ventilation if needed. She did not want any form of long-term aspiratory support, tracheostomy and feeding tube. The patient currently is on a BiPAP at a pressure of 12/6 cm of water and FiO2 of 100%. Chest x-ray has not shown any significant improvement. For now, the patient is on BiPAP for respir atory support, she is receiving colchicine 0.6 mg by mouth twice a day. She is on Lovenox 40 mg subcu every 12 hours. She is on Levemir insulin 15 units at bedtime in addition to a sliding scale coverage. She is receiving albuterol HFA 4 puffs every 4 hours when necessary and his Symbicort on a 160/4.52 puffs twice a day. The patient is also on IV Solu-Medrol 60 mg every 6 hours. The patient is also on antibiotic coverage with vancomycin. The patient is on BiPAP at a pressure of 12/6 cm of water with an FiO2 of 100%. The chest x-ray shows stable findings. While on the BiPAP, she is able to generate a tidal volume as high as 800. Nevertheless she is quite tachypneic and her minute ventilation is around 18-20 L per minute. Her pulse ox is order of 91%. Even while being given her medication, she seems to be desaturating out of it. Otherwise, she is hemodynamically stable. No chest pain. No altered mentation. No fever. No chills. She was unable to eat and she is currently on TPN for nutritional support. Is a PICC line in the left upper extremity. She remains on IV Solu-Medrol On 11/03/2020, the patient is being seen for a follow-up in the ICU. The patient is essentially the same as yesterday. I did some adjustment on a BiPAP setting knowing that the patient was able to generate adequate tidal volumes. Based on that, I put on a pressure of 10/5 cm of water and FiO2 started on the percent. On today's evaluation, while off the BiPAP mask for less than a mini te, the patient desaturated to the low 80s and she seems to be very much BiPAP dependent for now. The patient is sexually yesterday evening and the chest x- ray showed diffuse bilateral pulmonary infiltrates which is essentially unchanged compared to the previous chest x-ray. There may be a small effusion the left lung. In terms of her blood work, the patient's d-dimer is at 3.21 which is higher compared to yesterday. She also has an LDH which is a 64 which is comparable to yesterday and his CRP is down to 13.6, slightly improved compared to yesterday. Her blood cultures of been negative. The white cell count was not elevated from yesterday. She remains on IV Solu-Medrol 60 mg every 6 hours. She is also on a combination of colchicine 0.6 mg by mouth twice a day, Lovenox 40 mg subcu daily, zinc and the patient also is on a combination antibiotics including cefepime and vancomycin due to suspicion for a superimposed bacterial infection. 11/04/2020 I'm seeing patient for a follow-up. The patient is still struggling with her breathing. Very much BiPAP dependent at the pressure of 10/5 and FiO2 has been reduced down to 90%. The chest x-ray still showing stable bilateral pulmonary infiltrates. The patient is afebrile. The patient is on IV Solu- Medrol. The patient is on colchicine. Inflammatory markers from today show an LDH level which is slightly higher at 911 and his CRP which is slightly higher at 40.1. Renal function is stable. Her IV Solu-Medrol is currently at a dose of 40 mg every 8 hours. She remains on IV cefepime. She remains on IV vancomycin. No chest pain. She is still receiving TPN for nutritional support. This will be very difficult for this patient to take oral medication for feeding as the patient has limited reserve and she would desaturate within a few minutes after taken off the BiPAP.She is also on a combination of colchicine 0.6 mg by mouth twice a day, Lovenox 40 mg subcu daily, zinc and the patient also is on a combination antibiotics including cefepime and vancomycin due to suspicion for a superimposed bacterial infection. Objective - Vital Signs Vital signs: Vital Signs Temp 98.6 F 11/04/20 08:00 Pulse 92 11/04/20 08:00 Resp 27 H 11/04/20 08:00 BP 104/54 11/04/20 08:00 Pulse Ox 92 L 11/04/20 08:00 Intake & Output 11/03/20 11/04/20 11/04/20 18:59 06:59 18:59 Intake Total 1901 1570 140 Output Total 1450 1180 150 Balance 451 390 -10 Weight 84.3 kg Intake: IV 340 320 140 0.9NS 240 220 40 Cefepime 2 gm In Sodium 100 100 100 Chloride 0.9% 100 ml @ 25 mls/hr IVPB Q12HR [facility] Rx #:[id number] Intake, IV Titration 1261 1000 Amount Amino Acid 5%-D15w+Lytes* 1000 E* 1,000 ml @ 60 mls/hr IV .BY DURATION [facility] Rx#: [id number] Mvi, Adult No.4 with Vit 1011 K 10 ml Trace (Conc-1Ml/ Dose) 1 ml In Amino Acid 5%-D15w+Lytes*E* 1,000 ml @ 60 mls/hr IV .BY DURATION [facility] Rx#: [id number] Vancomycin 1,500 mg In 250 Sodium Chloride 0.9% 250 ml @ 125 mls/hr IVPB Q12H [facility] Rx#:[id number] Oral 300 250 Output: Urine 1450 1180 150 Other: Voiding Method Indwelling Catheter Indwelling Catheter # Bowel Movements 1 1 - Exam Mild respiratory distress, oriented 3. The patient's on BiPAP with settings of IPAP 10/EPAP 5, and 100%. HEENT examination is grossly unremarkable. Mucous membranes are moist. No oral lesions. Neck supple. Full range of motion. No adenopathy thyromegaly or neck vein dis tention. Cardiovascular examination reveals regular rhythm rate. S1-S2 normal. No S3 or S4. No discernible murmur noted. Heart sounds are distant Lungs reveal coarse bilateral rhonchi, and a few crackles. Breath sounds equal bilaterally but diminished throughout. No wheezes. Breath sounds aren't changed compared to the last 2 days examinations. Abdomen soft bowel sounds are heard. No masses or tenderness. Extremities are intact. No cyanosis clubbing or edema. Skin is without rash or lesion. Neurologic examination is brief but nonfocal. - Labs CBC & Chem 7: 11/02/20 06:03 11/04/20 02:56 Labs: Abnormal Lab Results - Last 24 Hours (Table) 11/03/20 11/03/20 11/03/20 Range/Units 11:58 17:57 23:26 D-Dimer (<0.60) mg/L FEU BUN (7-17) mg/dL Glucose (74-99) mg/dL POC Glucose (mg/dL) 152 H 212 H 177 H (75-99) mg/dL Lactate Dehydrogenase (313-618) U/L C-Reactive Protein (<10.0) mg/L 11/04/20 11/04/20 11/04/20 Range/Units 02:56 02:56 05:22 D-Dimer 4.40 H (<0.60) mg/L FEU BUN 20 H (7-17) mg/dL Glucose 154 H (74-99) mg/dL POC Glucose (mg/dL) 244 H (75-99) mg/dL Lactate Dehydrogenase 911 H (313-618) U/L C-Reactive Protein 40.1 H (<10.0) mg/L Microbiology - Last 24 Hours (Table) 11/03/20 18:30 Nasal Screen MRSA/MSSA - Preliminary Nasal Swab 10/28/20 15:41 Blood Culture - Final Blood No Growth after 144 hours 11/02/20 05:25 Urine Culture - Final Urine,Voided Assessment and Plan Plan: #1. Acute on chronic hypoxemic respiratory failure secondary to acute COVID 19 pneumonitis, status post remdesivir, currently on IV Solu-Medrol, and she is also on colchicine and Lovenox today. The d-dimer is at 3.21. Rest of the inflammatory markers show shows a CRP of 13 which is lower compared to yesterday and the LDH is down to 864, essentially comparable over the past 1 week.. Patient is BIPAP dependent and the patient is receiving TPN for nutritional support. The chest x-ray findings are stable for now. No major interval change compared to yesterday. The patient's BiPAP setting is currently 10/5 with an FiO2 of 90%Chest x-ray findings are stable and the CRP and LDH is slightly higher on today's evaluation. The patient is currently on Solu-Medrol 40 mg every 8 hours. She is on Lovenox 40 mg subcu every 12 hours. She is also on colchicine in addition to the rest of the supplements. No major improvement in her condition compared to yesterday. Chest x-ray findings are stable. #2. History of COPD #3. Elevated transaminases secondary to COVID 19 infection #4. Type 2 diabetes mellitus #5. History of obstructive sleep apnea syndrome #6. Dyslipidemia #7. History of degenerative joint disease #8. History of bipolar disorder Plan: The patient is on BiPAP and will continue the same setting IPAP down to 10 and will try EPAP of 5 and will continue with FiO2 of 90% , and a minute ventilation remains quite elevated at 17-18 L per minute. The patient is able to generate higher tidal volumes at her respiratory rate is quite high above 25 times a minutes. As such, I do not think she will tolerate a high flow nasal cannula. Continue Solu-Medrol, continue Lovenox, repeat inflammatory markers, daily chest x-rays, TPN for nutritional support, questionable value of colchicine in the patient's yet we'll give the patient the benefit of the doubt and will continue to follow. Condition is critical. The patient will be kept. ICU.
[2020-11-04 11:51] LABS: Glucose,Whole Blood 201 mg/dL (75-99)
[2020-11-04] MEDS: LIDOCAINE 5% PATCH TOPICAL SCH (12:25)
[2020-11-04] MEDS: FAT EMULSION 20% 250 ML IV SCH (16:04)
[2020-11-04 17:16] LABS: Glucose,Whole Blood 252 mg/dL (75-99)
--- NOTE | 2020-11-04 19:54 | P.PN ---
Progress Note - Text Progress Note Date: 11/04/20 Chief Complaint: Short of breath History of presenting complaint: This is a 60-year-old patient who follows with Yajaira Barber. Chronic stable medical conditions include diabetes, fibromyalgia, GERD, hypertension, hyperlipidemia, osteoarthritis, obstructive sleep apnea. She is on 3 L of nasal cannula home. Night has been getting it more often lately. Diabetic peripheral neuropathy, obstructive sleep apnea does not use CPAP, chronic kidney disease, arthritis in multiple joints, bipolar schizoaffective disorder. Patient presents of 1 week of increasing shortness of breath. Cough. Slight phlegm. Has had fever for 2 days. Decrease appetite some headaches no loss of taste or smell. No diarrhea. Body aches all over. Patient tested for COVID 19 in the ER. Still somewhat tired rundown. Admitted with bilateral COVID 19 pneumonia, acute hypoxic respiratory failure, acute COPD exacerbation. Patient was started on dexamethasone, Lovenox, Remdesivir, vitamin C vitamin D and zinc. Pulmonary was consulted. Patient has been requiring BiPAP. On October 28 because of increasing oxygen requirement patient is moved to the ICU. Patient was started on IV cefepime and vancomycin. Given convalescent plasma on October 30. PICC line placed-started on TPN and lipids Today-ICU: Remains failure on BiPAP. Getting TPN and lipids. Able to communicate. Short of breath. Tired. Sinus rhythm Review of systems: Was done for constitutional, cardiovascular, GI, pulmonary. relevant finding as above Active Medications Acetaminophen (Acetaminophen Tab 325 Mg Tab) 650 mg PO Q6HR PRN PRN Reason: Fever and/ or Pain Last Admin: 11/03/20 23:48 Dose: 650 mg Documented by: Albuterol Sulfate (Albuterol Hfa Inhaler) 4 puff INHALATION Q4H [facility] Last Admin: 11/04/20 15:56 Dose: 4 puff Documented by: Aripiprazole (Aripiprazole 10 Mg Tab) 10 mg PO HS [facility] Last Admin: 11/03/20 20:56 Dose: 10 mg Documented by: Aripiprazole (Aripiprazole 20 Mg Tab) 20 mg PO DAILY [facility] Last Admin: 11/04/20 09:08 Dose: 20 mg Documented by: Artificial Tears (Artificial Tears-Hypromellose Drops 15 Ml Btl) 1 drops BOTH EYES QID PRN PRN Reason: Dry Eye(s) Last Admin: 10/29/20 18:47 Dose: 1 drops Documented by: Ascorbic Acid (Ascorbic Acid 500 Mg Tab) 500 mg PO DAILY [facility] Last Admin: 11/04/20 07:58 Dose: 500 mg Documented by: Atorvastatin Calcium (Atorvastatin 20 Mg Tab) 20 mg PO DAILY [facility] Last Admin: 11/04/20 09:08 Dose: 20 mg Documented by: Budesonide/Formoterol Fumarate (Symbicort 160-4.5 Mcg Inhaler) 2 puff INHALATION RT-BID [facility] Last Admin: 11/04/20 08:24 Dose: 2 puff Documented by: Cholecalciferol (Cholecalciferol 25 Mcg (1000 Iu) Tablet) 100 mcg PO DAILY [facility] Last Admin: 11/04/20 07:58 Dose: 100 mcg Documented by: Clonazepam (Clonazepam 0.5 Mg Tab) 0.5 mg PO BID [facility] Last Admin: 11/04/20 07:58 Dose: 0.5 mg Documented by: Colchicine (Colchicine 0.6 Mg Each) 0.6 mg PO BID [facility] Last Admin: 11/04/20 08:02 Dose: 0.6 mg Documented by: Enoxaparin Sodium (Enoxaparin 40 Mg/0.4 Ml Syringe) 40 mg SQ BID [facility] Last Admin: 11/04/20 09:07 Dose: 40 mg Documented by: Famotidine (Famotidine 20 Mg Tab) 20 mg PO BID [facility] Last Admin: 11/04/20 07:58 Dose: 20 mg Documented by: Cefepime HCl 2 gm/ Sodium (Chloride) 100 mls @ 25 mls/hr IVPB Q12HR [facility] Last Admin: 11/04/20 08:33 Dose: 25 mls/hr Documented by: Amino Ac/Electrol/Dextrose/Calcium (Clinimix E 5%-D15% Solution) 1,000 mls @ 60 mls/hr IV .BY DURATION [facility] Last Admin: 11/04/20 17:37 Dose: 60 mls/hr Documented by: Parenteral Vitamin Supplement 10 ml/ Chromium/Copper/Manganese/Seleni/Zn 1 ml/Amino Ac/Electrol/Dextrose/Calcium 1,011 mls @ 60 mls/hr IV .BY DURATION [facility] Last Admin: 11/04/20 02:58 Dose: 60 mls/hr Documented by: Fat Emulsion Intravenous (Lipids 20%) 250 mls @ 20.833 mls/hr IV MoWeFr [facility] Last Admin: 11/04/20 16:04 Dose: 20.833 mls/hr Documented by: Vancomycin HCl 1,500 mg/ (Sodium Chloride) 250 mls @ 125 mls/hr IVPB Q12H [facility] Last Admin: 11/04/20 17:41 Dose: 125 mls/hr Documented by: Insulin Aspart (Insulin Aspart (Novolog) 100 Unit/Ml Vial) 0 unit SQ Q6H [facility]; Protocol Last Admin: 11/04/20 17:40 Dose: 8 unit Documented by: Insulin Detemir (Insulin Detemir (Levemir) 100 Unit/Ml Syr) 26 unit SQ HS [facility] Last Admin: 11/03/20 20:54 Dose: 26 unit Documented by: Lamotrigine (Lamotrigine 100 Mg Tab) 150 mg PO BID [facility] Last Admin: 11/04/20 07:59 Dose: 150 mg Documented by: Lidocaine (Lidocaine 5% Patch) 1 patch TOPICAL DAILY [facility] Last Admin: 11/04/20 12:25 Dose: 1 patch Documented by: Linagliptin (Linagliptin 5 Mg Tablet) 5 mg PO DAILY [facility] Last Admin: 11/04/20 09:06 Dose: 5 mg Documented by: Losartan Potassium (Losartan 50 Mg Tab) 50 mg PO DAILY [facility] Last Admin: 11/04/20 09:08 Dose: 50 mg Documented by: Meclizine HCl (Meclizine 25 Mg Tab) 25 mg PO Q8H PRN PRN Reason: Nausea And Vomiting Methylprednisolone Sodium Succinate (Methylprednisolone Sod Succi 40 Mg/Ml 1 Ml Vial) 40 mg IV Q8HR [facility] Last Admin: 11/04/20 16:07 Dose: 40 mg Documented by: Miscellaneous Information (Magnesium Replacement Protocol 1 Each Misc) 1 each MISCELLANE DAILY PRN; Protocol PRN Reason: Per Protocol Miscellaneous Information (Potassium Replacement Protocol 1 Each Misc) 1 each MISCELLANE DAILY PRN; Protocol PRN Reason: Per Protocol Oxcarbazepine (Oxcarbazepine 150 Mg Tab) 150 mg PO BID [facility] Last Admin: 11/04/20 09:08 Dose: 150 mg Documented by: Oxycodone/Acetaminophen (Oxycodone-Apap 10-325mg 1 Each Tab) 1 each PO Q6H PRN PRN Reason: Pain Last Admin: 11/04/20 14:43 Dose: 1 each Documented by: Pregabalin (Pregabalin 100 Mg Cap) 100 mg PO BID [facility] Last Admin: 11/04/20 09:13 Dose: 100 mg Documented by: Sumatriptan Succinate (Sumatriptan Succinate 50 Mg Tab) 100 mg PO BID PRN PRN Reason: Migraine Headache Topiramate (Topiramate 25 Mg Tab) 50 mg PO BID [facility] Last Admin: 11/04/20 09:07 Dose: 50 mg Documented by: Zinc Sulfate (Zinc Sulfate 220 Mg Cap) 220 mg PO DAILY [facility] Last Admin: 11/04/20 09:13 Dose: 220 mg Documented by: Past medical history to include: COPD, diabetes, fibromyalgia, GERD, hyperlipidemia, hypertension, obstructive sleep apnea does not use CPAP, home oxygen 3 L normal. Night, diabetic peripheral neuropathy, chronic kidney disease, bipolar depression, schizoaffective disorder. Social history: Lives with her daughter. Disabled. Home oxygen. Smoked from 9065 through 2009. In the past used several street drugs but not so since 1989. Physical examination: VITAL SIGNS: 99.4, 90, 19, 116/56, 87% on BiPAP GENERAL: Reclining in bed, short of breath, awake, Psychiatry: AO 3, mood and affect anxious Neurological: Moving all 4 limbs. Rest of exam as per pulmonary and nursing INVESTIGATIONS, reviewed in the clinical context: November 04: D-dimer 4.4 CRP 40.1 pro-calcitonin 0.11 November 03: D-dimer 3.21 CRP 13.6 October 8: White count 10 lymphocytes 0.3 d-dimer 1.95 CRP 16.7 October 7: Potassium 4.1 creatinine 0.65 CRP 33.4 Fabry 6: D-dimer 1.03 CRP 74 October 5: CRP 201.7 October 4: D-dimer 0.65 CRP 179 sodium 131 potassium 3.3 white count 32 October 3: D-dimer 0.78 CRP 169 pro-calcitonin 0.38 Chest x-ray from yesterday-scattered infiltrates Admission labs: White count 7.2 hemoglobin 15.1 decreased lymphocytes d-dimer 0.85 potassium 3.3 creatinine 0.90 glucose 205 EST 106 ALT 103 CRP 37.2 procalcitonin 0.27 Influenza type A, type B both not detected. RSV P/Cr-not detected. Coronavirus [PCR]-detected EKG tracing personally reviewed by me-normal sinus rhythm some slight ST segment changes Chest x-ray film personally reviewed by me-bilateral basilar infiltrates Assessment: -Bilateral COVID 19 pneumonia causing sepsis. Slow to respond. Has received Remdesivir. Convalescent plasma. On colchicine. Change from dexamethasone to IV Solu-Medrol on October 30. Subcu Lovenox-increased dose to 80 mg subcu every 12. Has COVID 19 doesn't thrombogenic condition and d-dimer is going up -Also being covered for secondary bacterial pneumonia infection with IV cefepime, IV vancomycin.. Pending MRSA nasal screening results -Acute COPD exacerbation in an [id number] to respond -acute hypoxic respiratory failure, requiring BiPAP-slow to respond -Diabetes mellitus type 2, uncontrolled with hyperglycemia from steroids. Increase Levemir to 32 units subcu daily at bedtime -Chronic fibromyalgia -GERD -Essential hypertension -Hyperlipidemia -Obstructive sleep apnea does not use CPAP -Diabetic peripheral neuropathy -Primary osteoarthritis of multiple joints -TPN and lipids
[2020-11-04] MEDS: ARIPiprazole 10 MG TAB PO SCH (20:54)
[2020-11-04] MEDS: ENOXAPARIN 80 MG/0.8 ML SYRINGE SQ SCH (20:57)
[2020-11-04] MEDS: INSULIN DETEMIR (LEVEMIR) 100 UNIT/ML SYR SQ SCH (20:58)
--- NOTE | 2020-11-04 22:03 | PN ---
PROGRESS NOTE DATE OF SERVICE: 11/04/2020 REASON FOR FOLLOWUP: Pneumonia. INTERVAL HISTORY: The patient is currently afebrile. The patient is hemodynamically stable, not on any pressor support. Patient's FiO2 is currently down to 90% on BiPAP. The patient denies having any chest pain. Cough but no sputum. No abdominal pain or diarrhea. PHYSICAL EXAMINATION: Blood pressure is 122/67, pulse of 90, temperature 98. She is 89% on BiPAP. General description is a middle-aged female lying in bed in no distress. RESPIRATORY SYSTEM: Unlabored breathing with decreased intensity of breath sounds. No wheeze. HEART: S1, S2. Regular rate and rhythm. ABDOMEN: Soft. No tenderness. LABS: BUN of 20, creatinine 0.63. Procalcitonin 0.11. CRP 40.1. DIAGNOSTIC IMPRESSION AND PLAN: Patient with acute respiratory failure which is multifactorial in this patient who did have a component of COVID-19 infection followed by pneumonia, possible bacterial. With elevated Procalcitonin, the patient is covered with cefepime and vancomycin; to continue and monitor clinical course closely. MMODL / IJN: [id number] /
[2020-11-04 23:59] LABS: Glucose,Whole Blood 215 mg/dL (75-99)
[2020-11-05] MEDS: ACETAMINOPHEN TAB 325 MG TAB PO PRN (00:06)
[2020-11-05] MEDS: methylPREDNISolone SOD SUCCI 40 MG/ML 1 ML VIAL IV SCH ×2 (00:11→07:50)
[2020-11-05] MEDS: INSULIN ASPART (NovoLOG) 100 UNIT/ML VIAL SQ SCH ×6 (00:11→23:33)
[2020-11-05] MEDS: ALBUTEROL HFA INHALER INHALATION SCH ×7 (01:16→23:20)
[2020-11-05] MEDS: oxyCODONE-APAP 10-325MG 1 EACH TAB PO PRN ×4 (03:02→23:58)
[2020-11-05 04:34] LABS: Basophils % (A) 0 %; Eosinophils # (A) 0.1 k/uL (0-0.7); Eosinophils % (A) 1 %; HCT 40.1 % (34.0-46.0); HGB 13.1 gm/dL (11.4-16.0); Lymphocytes # (A) 0.3 k/uL (1.0-4.8); Lymphocytes % (A) 2 %; MCH 29.2 pg (25.0-35.0); MCHC 32.6 g/dL (31.0-37.0); MCV 89.4 fL (80.0-100.0); Mean Platelet Volume 7.1; Monocytes # (A) 0.5 k/uL (0-1.0); Monocytes % (A) 4 %; Neutrophils # (A) 13.2 k/uL (1.3-7.7); Neutrophils % (A) 93 %; Platelet Count 281 k/uL (150-450); RBC 4.49 m/uL (3.80-5.40); RDW 14.6 % (11.5-15.5); WBC 14.2 k/uL (3.8-10.6)
[2020-11-05 04:52] LABS: African American GFR (CKD) >90 (>60 ml/min/1.73 sqM); Anion Gap 3 mmol/L; Blood Urea Nitrogen 20 mg/dL (7-17); C Reactive Protein 45.2 mg/L (<10.0); Calcium 8.9 mg/dL (8.4-10.2); Carbon Dioxide 32 mmol/L (22-30); Chloride 101 mmol/L (98-107); Glucose 133 mg/dL (74-99); LDH 1030 U/L (313-618); Non-African American GFR(CKD) >90 (>60 ml/min/1.73 sqM); Phosphorus 3.4 mg/dL (2.5-4.5); Potassium 4.8 mmol/L (3.5-5.1); Sodium 136 mmol/L (137-145)
[2020-11-05 05:59] LABS: Glucose,Whole Blood 193 mg/dL (75-99)
[2020-11-05] MEDS: VANCOMYCIN 1,500 MG in SODIUM CHLORIDE 0.9% 250 ML IVPB SCH ×2 (06:06→17:01)
--- NOTE | 2020-11-05 07:34 | XR ---
EXAMINATION TYPE: XR chest 1V portable DATE OF EXAM: 11/05/2020 COMPARISON: 11/04/2020 INDICATION: Covid pneumonia TECHNIQUE: Single frontal view of the chest is obtained. FINDINGS: The heart size is normal. The pulmonary vasculature is normal. There is diffuse increased lung markings present bilaterally which can be compatible with Covid pneum onia IMPRESSION: 1. Stable appearing infiltrates which can be compatible with atypical pneumonia.
[2020-11-05] MEDS: lamoTRIgine 100 MG TAB PO SCH ×2 (07:50→20:33)
[2020-11-05] MEDS: OXcarbazepine 150 MG TAB PO SCH ×2 (07:51→21:12)
[2020-11-05] MEDS: FAMOTIDINE 20 MG TAB PO SCH ×2 (07:51→20:33)
[2020-11-05] MEDS: TOPIRAMATE 25 MG TAB PO SCH ×2 (07:52→21:12)
[2020-11-05] MEDS: CEFEPIME 2 GM in SODIUM CHLORIDE 0.9% 100 ML IVPB SCH ×2 (07:52→20:32)
[2020-11-05] MEDS: ENOXAPARIN 80 MG/0.8 ML SYRINGE SQ SCH (07:52)
[2020-11-05] MEDS: ATORVASTATIN 20 MG TAB PO SCH (07:53)
[2020-11-05] MEDS: LOSARTAN 50 MG TAB PO SCH (07:53)
[2020-11-05] MEDS: PREGABALIN 100 MG CAP PO SCH ×2 (07:53→20:33)
[2020-11-05] MEDS: ZINC SULFATE 220 MG CAP PO SCH (07:54)
[2020-11-05] MEDS: ASCORBIC ACID 500 MG TAB PO SCH (07:54)
[2020-11-05] MEDS: COLCHICINE 0.6 MG EACH PO SCH ×2 (07:54→21:12)
[2020-11-05] MEDS: CHOLECALCIFEROL 25 MCG (1000 IU) TABLET PO SCH (07:55)
[2020-11-05] MEDS: LINAGLIPTIN 5 MG TABLET PO SCH (07:58)
[2020-11-05 08:54] LABS: ABG Base Excess 4.5 mmol/L; ABG HCO3 30 mmol/L (21-25); ABG Oxygen Saturation 89.7 % (94-97); ABG PCO2 50 mmHg (35-45); ABG PH 7.38 (7.35-7.45); ABG TCO2 31 mmol/L (19-24); Allen Test Performed? Yes
[2020-11-05 08:58] LABS: ABG PO2 57 mmHg (83-108)
[2020-11-05] MEDS: SYMBICORT 160-4.5 MCG INHALER INHALATION SCH ×2 (08:59→20:13)
--- NOTE | 2020-11-05 09:47 | P.PN ---
Subjective Progress Note Date: 11/05/20 This is a 58-year-old female patient with COVID 19 related pneumonia. The patient has developed progressive worsening and hypoxic respiratory failure secondary to coronavirus/COVID 19 pneumonia. The patient was treated with a combination of treatment including Remdesivir and steroids and the patient was also treated with colchicine. The patient was given anticoagulation with Lovenox. With progressive respiratory failure, the patient was placed on high flow oxygen and subsequently the patient was switched to BiPAP for respiratory support. The patient was initially a DNR/DNI status and somewhat at a later stage she changed her mind and she was consented for short-term intubation mechanical ventilation if needed. She did not want any form of long-term aspiratory support, tracheostomy and feeding tube. The patient currently is on a BiPAP at a pressure of 12/6 cm of water and FiO2 of 100%. Chest x-ray has not shown any significant improvement. For now, the patient is on BiPAP for respir atory support, she is receiving colchicine 0.6 mg by mouth twice a day. She is on Lovenox 40 mg subcu every 12 hours. She is on Levemir insulin 15 units at bedtime in addition to a sliding scale coverage. She is receiving albuterol HFA 4 puffs every 4 hours when necessary and his Symbicort on a 160/4.52 puffs twice a day. The patient is also on IV Solu-Medrol 60 mg every 6 hours. The patient is also on antibiotic coverage with vancomycin. The patient is on BiPAP at a pressure of 12/6 cm of water with an FiO2 of 100%. The chest x-ray shows stable findings. While on the BiPAP, she is able to generate a tidal volume as high as 800. Nevertheless she is quite tachypneic and her minute ventilation is around 18-20 L per minute. Her pulse ox is order of 91%. Even while being given her medication, she seems to be desaturating out of it. Otherwise, she is hemodynamically stable. No chest pain. No altered mentation. No fever. No chills. She was unable to eat and she is currently on TPN for nutritional support. Is a PICC line in the left upper extremity. She remains on IV Solu-Medrol On 11/03/2020, the patient is being seen for a follow-up in the ICU. The patient is essentially the same as yesterday. I did some adjustment on a BiPAP setting knowing that the patient was able to generate adequate tidal volumes. Based on that, I put on a pressure of 10/5 cm of water and FiO2 started on the percent. On today's evaluation, while off the BiPAP mask for less than a mini te, the patient desaturated to the low 80s and she seems to be very much BiPAP dependent for now. The patient is sexually yesterday evening and the chest x- ray showed diffuse bilateral pulmonary infiltrates which is essentially unchanged compared to the previous chest x-ray. There may be a small effusion the left lung. In terms of her blood work, the patient's d-dimer is at 3.21 which is higher compared to yesterday. She also has an LDH which is a 64 which is comparable to yesterday and his CRP is down to 13.6, slightly improved compared to yesterday. Her blood cultures of been negative. The white cell count was not elevated from yesterday. She remains on IV Solu-Medrol 60 mg every 6 hours. She is also on a combination of colchicine 0.6 mg by mouth twice a day, Lovenox 40 mg subcu daily, zinc and the patient also is on a combination antibiotics including cefepime and vancomycin due to suspicion for a superimposed bacterial infection. 11/04/2020 I'm seeing patient for a follow-up. The patient is still struggling with her breathing. Very much BiPAP dependent at the pressure of 10/5 and FiO2 has been reduced down to 90%. The chest x-ray still showing stable bilateral pulmonary infiltrates. The patient is afebrile. The patient is on IV Solu- Medrol. The patient is on colchicine. Inflammatory markers from today show an LDH level which is slightly higher at 911 and his CRP which is slightly higher at 40.1. Renal function is stable. Her IV Solu-Medrol is currently at a dose of 40 mg every 8 hours. She remains on IV cefepime. She remains on IV vancomycin. No chest pain. She is still receiving TPN for nutritional support. This will be very difficult for this patient to take oral medication for feeding as the patient has limited reserve and she would desaturate within a few minutes after taken off the BiPAP.She is also on a combination of colchicine 0.6 mg by mouth twice a day, Lovenox 40 mg subcu daily, zinc and the patient also is on a combination antibiotics including cefepime and vancomycin due to suspicion for a superimposed bacterial infection. On 11/05/2020, the patient is being seen for a follow-up. Unfortunately she is struggling with her breathing and she seems to be more short of breath. I would say she is slightly worse compared to yesterday. I reviewed the chest x-ray and there is diffuse bilateral pulmonary infiltration and more than 50 in the right lower lobe and the area and the right lower lobe is quite dense. States that she's having some pain on the right lateral chest wall area extending posteriorly. In terms of her inflammatory markers, the patient has an LDH level of 1030 which is higher compared to yesterday. She also has a CRP of 45 which is higher compared to yesterday. Her blood gases from today was done on a BiPAP at a pressure of 10/6 6 cm of water with an FiO2 of 100% showed a pH of 7.38 with a pCO2 of 50 and pO2 of 57. Note that the patient or the covered with broad-spectrum antibiotics. She is on a combination of cefepime and vancomycin for a possible superinfection involving the right lower lobe. I also noted an elevation of d-dimer up to 5.41. As such, the patient's condition is gradually decompensating. She remains on TPN for nutritional support. She remains on Lovenox and the dose has been modified. I would suggest half a dose of Lovenox due to increased risk of bleeding on going to suggest 40 mg of Lovenox every 12 hours. She is on colchicine 0.6 mg by mouth twice a day. She is on Levemir insulin 50 units at bedtime addition to his thigh scale coverage. She remains on IV Solu-Medrol. Objective - Vital Signs Vital signs: Vital Signs Temp 98.6 F 11/05/20 04:00 Pulse 96 11/05/20 09:00 Resp 25 H 11/05/20 09:00 BP 119/67 11/05/20 09:00 Pulse Ox 87 L 11/05/20 09:00 Intake & Output 11/04/20 11/05/20 11/05/20 18:59 06:59 18:59 Intake Total 403 381 40 Output Total 1150 1385 95 Balance -747 -1004 -55 Weight 84.3 kg 84.7 kg Intake: IV 340 360 40 0.9NS 240 260 40 Cefepime 2 gm In Sodium 100 100 Chloride 0.9% 100 ml @ 25 mls/hr IVPB Q12HR RAE Rx #:[id number] Intake, IV Titration 63 21 Amount Fat Emulsion 20% 250 ml @ 63 21 20.833 mls/hr IV MoWeFr RAE Rx#:[id number] Output: Urine 1150 1385 95 Other: Voiding Method Indwelling Catheter Indwelling Catheter - Exam Mild moderate amount of respiratory distress, oriented 3. The patient's on BiPAP with settings of IPAP 10/EPAP 5, and 100%. HEENT examination is grossly unremarkable. Mucous membranes are moist. No oral lesions. Neck supple. Full range of motion. No adenopathy thyromegaly or neck vein distention. Cardiovascular examination reveals regular rhythm rate. S1-S2 normal. No S3 or S4. No discernible murmur noted. Heart sounds are distant Lungs reveal coarse bilateral rhonchi, and a few crackles. Breath sounds equal bilaterally but diminished throughout. No wheezes. Breath sounds aren't changed compared to the last 2 days examinations. Abdomen soft bowel sounds are heard. No masses or tenderness. Extremities are intact. No cyanosis clubbing or edema. Skin is without rash or lesion. Neurologic examination is brief but nonfocal. - Labs CBC & Chem 7: 11/05/20 04:02 11/05/20 04:02 Labs: Abnormal Lab Results - Last 24 Hours (Table) 11/04/20 11/04/20 11/04/20 Range/Units 02:56 11:50 17:14 WBC (3.8-10.6) k/uL Neutrophils # (1.3-7.7) k/uL Lymphocytes # (1.0-4.8) k/uL D-Dimer (<0.60) mg/L FEU ABG pCO2 (35-45) mmHg ABG pO2 (83-108) mmHg ABG HCO3 (21-25) mmol/L ABG Total CO2 (19-24) mmol/L ABG O2 Saturation (94-97) % Sodium (137-145) mmol/L Carbon Dioxide (22-30) mmol/L BUN (7-17) mg/dL Glucose (74-99) mg/dL POC Glucose (mg/dL) 201 H 252 H (75-99) mg/dL Lactate Dehydrogenase (313-618) U/L C-Reactive Protein (<10.0) mg/L Procalcitonin 0.11 H (0.02-0.09) ng/mL 11/04/20 11/05/20 11/05/20 Range/Units 23:58 04:02 04:02 WBC (3.8-10.6) k/uL Neutrophils # (1.3-7.7) k/uL Lymphocytes # (1.0-4.8) k/uL D-Dimer 5.41 H (<0.60) mg/L FEU ABG pCO2 (35-45) mmHg ABG pO2 (83-108) mmHg ABG HCO3 (21-25) mmol/L ABG Total CO2 (19-24) mmol/L ABG O2 Saturation (94-97) % Sodium 136 L (137-145) mmol/L Carbon Dioxide 32 H (22-30) mmol/L BUN 20 H (7-17) mg/dL Glucose 133 H (74-99) mg/dL POC Glucose (mg/dL) 215 H (75-99) mg/dL Lactate Dehydrogenase 1030 H (313-618) U/L C-Reactive Protein 45.2 H (<10.0) mg/L Procalcitonin (0.02-0.09) ng/mL 11/05/20 11/05/20 11/05/20 Range/Units 04:02 05:57 08:52 WBC 14.2 H (3.8-10.6) k/uL Neutrophils # 13.2 H (1.3-7.7) k/uL Lymphocytes # 0.3 L (1.0-4.8) k/uL D-Dimer (<0.60) mg/L FEU ABG pCO2 50 H (35-45) mmHg ABG pO2 57 L* (83-108) mmHg ABG HCO3 30 H (21-25) mmol/L ABG Total CO2 31 H (19-24) mmol/L ABG O2 Saturation 89.7 L (94-97) % Sodium (137-145) mmol/L Carbon Dioxide (22-30) mmol/L BUN (7-17) mg/dL Glucose (74-99) mg/dL POC Glucose (mg/dL) 193 H (75-99) mg/dL Lactate Dehydrogenase (313-618) U/L C-Reactive Protein (<10.0) mg/L Procalcitonin (0.02-0.09) ng/mL Assessment and Plan Plan: #1. Acute on chronic hypoxemic respiratory failure secondary to acute COVID 19 pneumonitis, status post remdesivir, currently on IV Solu-Medrol, and she is also on colchicine and Lovenox today. Condition is gradually decompensating. The patient's inflammatory markers on the rise. Chest x-ray is not showing any improvement and in fact there is worsening in the consolidation of the right lower lobe. The patient is currently on a combination of colchicine, IV Solu- Medrol, Lovenox, and she is utilizing BiPAP for respiratory support. TPN is being utilized for nutritional support.. #2. History of COPD #3. Elevated transaminases secondary to COVID 19 infection #4. Type 2 diabetes mellitus, currently on Levemir insulin 30 units at bedtime addition to a slight scale coverage. She is receiving TPN for nutritional sup port. Current blood sugars are in the range of 200 #5. History of obstructive sleep apnea syndrome #6. Dyslipidemia #7. History of degenerative joint disease #8. History of bipolar disorder Plan: Change the BiPAP to 12 at 8 cm of water. By visiting the EPAP, I'm hoping to obtain a better oxygenation. The patient is an FiO2 of 100%. Repeated blood In 2 hours Will stop the IV Solu-Medrol we'll try high-dose Decadron for the next few days at a dose of 20 mg IV every 24 hours Drop the Lovenox dose to 40 mg every 12 hours as the patient has not confirmed to have any venous thrombolic disease and this is prophylactic Continue colchicine for now Monitor inflammatory markers and repeat them in a.m. Continue same antibiotic coverage Blood sugar management as per medicine. With increased dose of Decadron, she may need a higher dose of Levemir and will make adjustments based on her blood sugar control Continue TPN for nutritional support Condition is critical and we'll keep the patient ICU for now.
[2020-11-05] MEDS ORDERED: DEXAMETHASONE SOD PHOSPHATE 10 MG/ML 1 ML VIAL IV SCH (10:00)
[2020-11-05] MEDS: LIDOCAINE 5% PATCH TOPICAL SCH (10:24)
[2020-11-05] MEDS: 1: AMINO ACID 5%-D15W+LYTES*E* 1,000 ML 2: MVI, ADULT NO.4 WITH VIT K 10 ML, TRACE (CON IV SCH ×3 (10:24)
[2020-11-05] MEDS: DEXAMETHASONE SOD PHOSPHATE 20 MG in DEXTROSE 5% IN WATER 50 ML IV SCH ×2 (10:25)
[2020-11-05 11:55] LABS: Glucose,Whole Blood 231 mg/dL (75-99)
[2020-11-05 12:19] LABS: ABG Base Excess 4.5 mmol/L; ABG HCO3 30 mmol/L (21-25); ABG PCO2 51 mmHg (35-45); ABG PH 7.37 (7.35-7.45); ABG TCO2 31 mmol/L (19-24); Allen Test Performed? Yes
[2020-11-05 12:21] LABS: ABG PO2 54 mmHg (83-108)
--- NOTE | 2020-11-05 12:21 | CDI ---
Documentation Clarification Form Date: 11/05/2020 12:01:48 PM From: Linh Mcnulty CCS, CCDS Admit Date: 10/21/2020 10:12:00 AM Patient Name: Bobbi Chavira Visit Number: [id number] Discharge Date: ATTENTION: The Clinical Documentation Specialists (CDI) and [facility] Coding Staff appreciate your assistance in clarifying documentation. Please respond to the clarification below the line at the bottom and electronically sign. The CDI & [facility] Coding staff will review the response and follow-up if needed. Please note: Queries are made part of the Legal Health Record. If you have any questions, please contact the author of this message via ITS. Dr. Edin Brice: RDS is documented in the 11/02 CXR Impression and also in the 11/03 Infectious Disease Progress Note. History/Risk Factors Per the 10/21 History & Physical Patient Past Medical History: DM, CKD, Fibromyalgia, GERD, Hypertension, Hyperlipidemia, Osteoarthritis, COPD, KIRA, Home O2 2Lnc at night, Diabetic Neuropathy, Former Smoker. Clinical Indicators: The patient presented to the ED on 10/21 with SOB, Fever, Headache, Chest Congestion. ED Clinical Impression: Pneumonia due to COVID 19 virus. VS 10/21: T 103, P 114, R 22 (sob, cough) - 26; BP 122/62, PO 87 RA - 91 6Lnc BMI: 35.3 VS 11/05: T 98.6, P 104, R 25, BP 130/78, PO 87 BiPAP 100% LAB 10/21: Lymph 0.6, D Dimer 0.85, Na 135, K 3.3, Glucose 205, Lactic Acid 1.3, Mag 1.4, Ferritin 654.9, AST 106, ALT 103, LDH 645, CRP 37.2, Procalcitonin 0.27 LAB 11/05: WBC 14.2, Neut 13.2, Lymph 0.3, D Dimer 5.41, Na 136, CO2 32, BUN 20, Gluc 133, LDH 1030, CRP 45.2 ABG 11/05: pH 7.38, pCO2 50, pO2 57, HCO3 30, Total CO2 31, O2 Sat 89.7 RAD: 10/21 CXR: Possible basilar atelectasis vs pneumonia, difficult to exclude effusion. Consider interstitial edema. 11/05 CXR: There is diffuse increased lung markings present bilaterally which can be compatible with COVID pneumonia. IMPRESSION: Stable appearing infiltrates which can be compatible with atypical pneumonia. Treatment 10/21: INH Ventolin, IV Rocephin, IV Dilaudid, IV fluid 1,000 mls @ 50, IV fluid bolus 1,000 mls @ 999 mls/hr q1H, INH Symbicort, Lovenox sq, Insulin sq, IV Remdesivir, Vit C, Vit D3, Orazinc, po Hexadrol. 10/22: IV Remdesivir, IV Lasix. 10/31 IV Vancomycin. 10/30 PICC Line for TPN, Convalescent Plasma Transfusion The patient has been on BiPAP since 10/28, desats when off BiPAP per the 11/03 Pulmonary Progress Note. In order to accurately reflect the severity of condition, please indicate if the above clinical findings and treatment signify a respiratory condition, such as: Acute Respiratory Distress Syndrome Other Respiratory Condition, please specify: Other, please specify Unable to determine (Last Revision: June 2017) Acute Respiratory Distress Syndrome MTDD
[2020-11-05] MEDS: MORPHINE SULFATE 2 MG/ML SYRINGE IVP PRN ×3 (12:51→21:11)
[2020-11-05 15:30] LABS: Glucose,Whole Blood 241 mg/dL (75-99)
[2020-11-05 18:01] LABS: Glucose,Whole Blood 206 mg/dL (75-99)
--- NOTE | 2020-11-05 19:55 | P.PN ---
Progress Note - Text Progress Note Date: 11/05/20 Chief Complaint: Short of breath History of presenting complaint: This is a 60-year-old patient who follows with Yajaira Barber. Chronic stable medical conditions include diabetes, fibromyalgia, GERD, hypertension, hyperlipidemia, osteoarthritis, obstructive sleep apnea. She is on 3 L of nasal cannula home. Night has been getting it more often lately. Diabetic peripheral neuropathy, obstructive sleep apnea does not use CPAP, chronic kidney disease, arthritis in multiple joints, bipolar schizoaffective disorder. Patient presents of 1 week of increasing shortness of breath. Cough. Slight phlegm. Has had fever for 2 days. Decrease appetite some headaches no loss of taste or smell. No diarrhea. Body aches all over. Patient tested for COVID 19 in the ER. Still somewhat tired rundown. Admitted with bilateral COVID 19 pneumonia, acute hypoxic respiratory failure, acute COPD exacerbation. Patient was started on dexamethasone, Lovenox, Remdesivir, vitamin C vitamin D and zinc. Pulmonary was consulted. Patient has been requiring BiPAP. On October 28 because of increasing oxygen requirement patient is moved to the ICU. Patient was started on IV cefepime and vancomycin. Given convalescent plasma on October 30. PICC line placed-started on TPN and lipids Today-ICU: Patient remains on BiPAP dependent. TPN and lipids. Mostly been in bed. Tired. Short of breath Review of systems: Was done for constitutional, cardiovascular, GI, pulmonary. r elevant finding as above Active Medications Acetaminophen (Acetaminophen Tab 325 Mg Tab) 650 mg PO Q6HR PRN PRN Reason: Fever and/ or Pain Last Admin: 11/05/20 00:06 Dose: 650 mg Documented by: Albuterol Sulfate (Albuterol Hfa Inhaler) 4 puff INHALATION Q4H [facility] Last Admin: 11/05/20 16:22 Dose: 4 puff Documented by: Aripiprazole (Aripiprazole 10 Mg Tab) 10 mg PO HS [facility] Last Admin: 11/04/20 20:54 Dose: 10 mg Documented by: Aripiprazole (Aripiprazole 20 Mg Tab) 20 mg PO DAILY [facility] Last Admin: 11/05/20 07:51 Dose: 20 mg Documented by: Artificial Tears (Artificial Tears-Hypromellose Drops 15 Ml Btl) 1 drops BOTH EYES QID PRN PRN Reason: Dry Eye(s) Last Admin: 10/29/20 18:47 Dose: 1 drops Documented by: Ascorbic Acid (Ascorbic Acid 500 Mg Tab) 500 mg PO DAILY [facility] Last Admin: 11/05/20 07:54 Dose: 500 mg Documented by: Atorvastatin Calcium (Atorvastatin 20 Mg Tab) 20 mg PO DAILY [facility] Last Admin: 11/05/20 07:53 Dose: 20 mg Documented by: Budesonide/Formoterol Fumarate (Symbicort 160-4.5 Mcg Inhaler) 2 puff INHALATION RT-BID [facility] Last Admin: 11/05/20 08:59 Dose: 2 puff Documented by: Cholecalciferol (Cholecalciferol 25 Mcg (1000 Iu) Tablet) 100 mcg PO DAILY [facility] Last Admin: 11/05/20 07:55 Dose: 100 mcg Documented by: Clonazepam (Clonazepam 0.5 Mg Tab) 0.5 mg PO HS [facility] Last Admin: 11/04/20 20:54 Dose: 0.5 mg Documented by: Colchicine (Colchicine 0.6 Mg Each) 0.6 mg PO BID [facility] Last Admin: 11/05/20 07:54 Dose: 0.6 mg Documented by: Enoxaparin Sodium (Enoxaparin 40 Mg/0.4 Ml Syringe) 40 mg SQ Q12HR [facility] Famotidine (Famotidine 20 Mg Tab) 20 mg PO BID [facility] Last Admin: 11/05/20 07:51 Dose: 20 mg Documented by: Cefepime HCl 2 gm/ Sodium (Chloride) 100 mls @ 25 mls/hr IVPB Q12HR [facility] Last Admin: 11/05/20 07:52 Dose: 25 mls/hr Documented by: Amino Ac/Electrol/Dextrose/Calcium (Clinimix E 5%-D15% Solution) 1,000 mls @ 60 mls/hr IV .BY DURATION [facility] Last Admin: 11/04/20 17:37 Dose: 60 mls/hr Documented by: Parenteral Vitamin Supplement 10 ml/ Chromium/Copper/Manganese/Seleni/Zn 1 ml/Amino Ac/Electrol/Dextrose/Calcium 1,011 mls @ 60 mls/hr IV .BY DURATION [facility] Last Admin: 11/05/20 10:24 Dose: 60 mls/hr Documented by: Fat Emulsion Intravenous (Lipids 20%) 250 mls @ 20.833 mls/hr IV MoWeFr [facility] Last Admin: 11/04/20 16:04 Dose: 20.833 mls/hr Documented by: Vancomycin HCl 1,500 mg/ (Sodium Chloride) 250 mls @ 125 mls/hr IVPB Q12H [facility] Last Admin: 11/05/20 17:01 Dose: 125 mls/hr Documented by: Dexamethasone Sodium Phosphate (20 mg/ Dextrose/Water) 52 mls @ 100 mls/hr IV DAILY [facility] Stop: 11/07/20 09:32 Last Admin: 11/05/20 10:25 Dose: 100 mls/hr Documented by: Insulin Aspart (Insulin Aspart (Novolog) 100 Unit/Ml Vial) 0 unit SQ Q4H [facility]; Protocol Last Admin: 11/05/20 15:41 Dose: 8 unit Documented by: Insulin Detemir (Insulin Detemir (Levemir) 100 Unit/Ml Syr) 32 unit SQ HS [facility] Last Admin: 11/04/20 20:58 Dose: 32 unit Documented by: Lamotrigine (Lamotrigine 100 Mg Tab) 150 mg PO BID [facility] Last Admin: 11/05/20 07:50 Dose: 150 mg Documented by: Lidocaine (Lidocaine 5% Patch) 1 patch TOPICAL DAILY [facility] Last Admin: 11/05/20 10:24 Dose: 1 patch Documented by: Linagliptin (Linagliptin 5 Mg Tablet) 5 mg PO DAILY [facility] Last Admin: 11/05/20 07:58 Dose: 5 mg Documented by: Losartan Potassium (Losartan 50 Mg Tab) 50 mg PO DAILY [facility] Last Admin: 11/05/20 07:53 Dose: 50 mg Documented by: Meclizine HCl (Meclizine 25 Mg Tab) 25 mg PO Q8H PRN PRN Reason: Nausea And Vomiting Miscellaneous Information (Magnesium Replacement Protocol 1 Each Misc) 1 each MISCELLANE DAILY PRN; Protocol PRN Reason: Per Protocol Miscellaneous Information (Potassium Replacement Protocol 1 Each Misc) 1 each MISCELLANE DAILY PRN; Protocol PRN Reason: Per Protocol Miscellaneous Information (Vancomycin Trough Due 1 Each Misc) 0 each MISCELLANE DIRECTED ONE Stop: 11/06/20 05:01 Morphine Sulfate (Morphine Sulfate 2 Mg/Ml Syringe) 2 mg IVP Q4H PRN PRN Reason: Pain/Discomfort Last Admin: 11/05/20 17:02 Dose: 2 mg Documented by: Oxcarbazepine (Oxcarbazepine 150 Mg Tab) 150 mg PO BID [facility] Last Admin: 11/05/20 07:51 Dose: 150 mg Documented by: Oxycodone/Acetaminophen (Oxycodone-Apap 10-325mg 1 Each Tab) 1 each PO Q6H PRN PRN Reason: Pain Last Admin: 11/05/20 15:42 Dose: 1 each Documented by: Pregabalin (Pregabalin 100 Mg Cap) 100 mg PO BID [facility] Last Admin: 11/05/20 07:53 Dose: 100 mg Documented by: Sumatriptan Succinate (Sumatriptan Succinate 50 Mg Tab) 100 mg PO BID PRN PRN Reason: Migraine Headache Topiramate (Topiramate 25 Mg Tab) 50 mg PO BID [facility] Last Admin: 11/05/20 07:52 Dose: 50 mg Documented by: Zinc Sulfate (Zinc Sulfate 220 Mg Cap) 220 mg PO DAILY [facility] Last Admin: 11/05/20 07:54 Dose: 220 mg Documented by: Past medical history to include: COPD, diabetes, fibromyalgia, GERD, hyperlipidemia, hypertension, obstructive sleep apnea does not use CPAP, home oxygen 3 L normal. Night, diabetic peripheral neuropathy, chronic kidney disease, bipolar depression, schizoaffective disorder. Social history: Lives with her daughter. Disabled. Home oxygen. Smoked from 9065 through 2009. In the past used several street drugs but not so since 1989. Physical examination: VITAL SIGNS: 99.3, 80, 27, 118/58, 88% on BiPAP/100% GENERAL: Laying in bed, short of breath, awake, Psychiatry: AO 3, mood and affect anxious Neurological: Moving all 4 limbs. Rest of exam as per pulmonary and nursing INVESTIGATIONS, reviewed in the clinical context: November 05: WBC-14.2 lymphocytes 0.3 d-dimer 5.41, CRP 45.2. ABG-pH 7.38, pO2 57 pCO2 50 MRSA nasal screen-negative. November 04: D-dimer 4.4 CRP 40.1 pro-calcitonin 0.11 November 03: D-dimer 3.21 CRP 13.6 October 8: White count 10 lymphocytes 0.3 d-dimer 1.95 CRP 16.7 October 7: Potassium 4.1 creatinine 0.65 CRP 33.4 Fabry 6: D-dimer 1.03 CRP 74 October 5: CRP 201.7 October 29: D-dimer 0.65 CRP 179 sodium 131 potassium 3.3 white count October 28: D-dimer 0.78 CRP 169 pro-calcitonin 0.38 Chest x-ray from yesterday-scattered infiltrates Admission labs: White count 7.2 hemoglobin 15.1 decreased lymphocytes d-dimer 0.85 potassium 3.3 creatinine 0.90 glucose 205 EST 106 ALT 103 CRP 37.2 procalcitonin 0.27 Influenza type A, type B both not detected. RSV P/Cr-not detected. Coronavirus [PCR]-detected EKG tracing personally reviewed by me-normal sinus rhythm some slight ST segment changes Chest x-ray film personally reviewed by me-bilateral basilar infiltrates Assessment and plan: -Bilateral COVID 19 pneumonia causing sepsis. Slow to respond. Has received Remdesivir. Convalescent plasma. On colchicine. Change from dexamethasone to IV Solu-Medrol on October 30. Dr. Brice today adjusted and DC'd the Solu- Medrol. Started the patient dexamethasone 20 mg IV daily, and Lovenox was decreased to 40 mg subcu every 12 -Also being covered for secondary bacterial pneumonia infection with IV cefepime, IV vancomycin.. MRSA nasal screen negative. Will DC vancomycin, if okay with Dr. Stevens. -Acute COPD exacerbation in an [id number] to respond -acute hypoxic respiratory failure, requiring BiPAP-slow to respond -Diabetes mellitus type 2, uncontrolled with hyperglycemia from steroids. Increase Levemir to 32 units subcu daily at bedtime -Chronic fibromyalgia -GERD -Essential hypertension, on Cozaar -Hyperlipidemia, on Lipitor -Obstructive sleep apnea does not use CPAP -Diabetic peripheral neuropathy -Primary osteoarthritis of multiple joints -TPN and lipids
[2020-11-05 20:25] LABS: Glucose,Whole Blood 176 mg/dL (75-99)
[2020-11-05] MEDS: INSULIN DETEMIR (LEVEMIR) 100 UNIT/ML SYR SQ SCH (20:32)
[2020-11-05] MEDS: clonazePAM 0.5 MG TAB PO SCH (20:33)
[2020-11-05] MEDS: ENOXAPARIN 40 MG/0.4 ML SYRINGE SQ SCH (20:33)
[2020-11-05] MEDS: ARIPiprazole 10 MG TAB PO SCH (21:12)
--- NOTE | 2020-11-05 21:51 | PN ---
PROGRESS NOTE DATE OF SERVICE: 11/05/2020 REASON FOR FOLLOWUP: Pneumonia. INTERVAL HISTORY: The patient is currently afebrile. The patient is breathing slightly comfortably still requiring BiPAP for respiratory support; currently on 100% FiO2. Denies having any chest pain. Cough but no sputum. No abdominal pain. No diarrhea has been reported. PHYSICAL EXAMINATION: Blood pressure 140/76, pulse of 89, temperature 99.3. She is 91% on BiPAP. General description is a middle-aged female lying in bed in no distress. RESPIRATORY SYSTEM: Unlabored breathing. Some coarse breath sounds at the bases. HEART: S1, S2. Regular rate and rhythm. ABDOMEN: Soft. No tenderness. LABS: Hemoglobin is 13.1, white count 14.2, BUN of 20, creatinine 0.54. LDH is elevated. DIAGNOSTIC IMPRESSION AND PLAN: Patient with acute respiratory failure which is multifactorial in this patient who did have COVID-19 infection with concern for possible secondary bacterial pneumonia. Patient is covered with cefepime. MRSA nasal swab came back negative. Vancomycin will be discontinued. Discussed with the admitting physician. Continue with supportive care. MMODL / IJN: [id number] /
[2020-11-05 23:16] LABS: Glucose,Whole Blood 173 mg/dL (75-99)
[2020-11-06] MEDS: MORPHINE SULFATE 2 MG/ML SYRINGE IVP PRN ×2 (01:22→08:43)
[2020-11-06] MEDS: ALBUTEROL HFA INHALER INHALATION SCH ×6 (02:57→23:44)
[2020-11-06] MEDS: 1: AMINO ACID 5%-D15W+LYTES*E* 1,000 ML 2: MVI, ADULT NO.4 WITH VIT K 10 ML, TRACE (CON IV SCH ×3 (03:36)
[2020-11-06 03:45] LABS: Glucose,Whole Blood 136 mg/dL (75-99)
[2020-11-06] MEDS: INSULIN ASPART (NovoLOG) 100 UNIT/ML VIAL SQ SCH ×5 (03:47→20:32)
[2020-11-06] MEDS ORDERED: VANCOMYCIN TROUGH DUE 1 EACH MISC MISCELLANE ONE (05:00)
[2020-11-06 06:34] LABS: African American GFR (CKD) >90 (>60 ml/min/1.73 sqM); Anion Gap 7 mmol/L; Blood Urea Nitrogen 22 mg/dL (7-17); Calcium 8.9 mg/dL (8.4-10.2); Carbon Dioxide 30 mmol/L (22-30); Chloride 100 mmol/L (98-107); Glucose 136 mg/dL (74-99); Magnesium 1.9 mg/dL (1.6-2.3); Non-African American GFR(CKD) >90 (>60 ml/min/1.73 sqM); Phosphorus 3.6 mg/dL (2.5-4.5); Potassium 3.9 mmol/L (3.5-5.1); Sodium 137 mmol/L (137-145)
--- NOTE | 2020-11-06 07:19 | XR ---
EXAMINATION TYPE: XR chest 1V portable DATE OF EXAM: 11/06/2020 HISTORY: Shortness of breath. COMPARISON: 11/05/2020 TECHNIQUE: Single view of the chest is submitted. FINDINGS: Demonstrated are scattered senescent parenchymal change. Coarse infiltrates throughout both lung pool with more confluent process right lower lobe remain un changed. PICC line is stable in position. The heart is stable. Hilar and mediastinal structures are within normal limits. Degenerative changes are seen of the dorsal spine. IMPRESSION: 1. Stable chest
[2020-11-06 07:24] LABS: Basophils # (A) 0.1 k/uL (0-0.2); Basophils % (A) 1 %; Eosinophils # (A) 0.3 k/uL (0-0.7); Eosinophils % (A) 2 %; HCT 39.1 % (34.0-46.0); HGB 12.5 gm/dL (11.4-16.0); Lymphocytes # (A) 0.8 k/uL (1.0-4.8); Lymphocytes % (A) 6 %; MCH 28.6 pg (25.0-35.0); MCV 89.4 fL (80.0-100.0); Monocytes # (A) 0.8 k/uL (0-1.0); Monocytes % (A) 5 %; Neutrophils # (A) 12.3 k/uL (1.3-7.7); Neutrophils % (A) 85 %; Platelet Count 277 k/uL (150-450); RBC 4.37 m/uL (3.80-5.40); RDW 14.7 % (11.5-15.5); WBC 14.5 k/uL (3.8-10.6)
[2020-11-06] MEDS: SYMBICORT 160-4.5 MCG INHALER INHALATION SCH ×2 (08:31→19:50)
[2020-11-06 08:40] LABS: Glucose,Whole Blood 134 mg/dL (75-99)
[2020-11-06] MEDS: LIDOCAINE 5% PATCH TOPICAL SCH (08:42)
[2020-11-06] MEDS: DEXAMETHASONE SOD PHOSPHATE 20 MG in DEXTROSE 5% IN WATER 50 ML IV SCH ×2 (08:44)
[2020-11-06] MEDS: ENOXAPARIN 40 MG/0.4 ML SYRINGE SQ SCH ×2 (08:44→20:31)
[2020-11-06] MEDS: CEFEPIME 2 GM in SODIUM CHLORIDE 0.9% 100 ML IVPB SCH ×2 (08:44→20:30)
[2020-11-06] MEDS: COLCHICINE 0.6 MG EACH PO SCH ×2 (08:45→20:31)
[2020-11-06] MEDS: ATORVASTATIN 20 MG TAB PO SCH (08:45)
[2020-11-06] MEDS: ZINC SULFATE 220 MG CAP PO SCH (08:45)
[2020-11-06] MEDS: OXcarbazepine 150 MG TAB PO SCH ×2 (08:46→20:31)
[2020-11-06] MEDS: ASCORBIC ACID 500 MG TAB PO SCH (08:46)
[2020-11-06] MEDS: FAMOTIDINE 20 MG TAB PO SCH (08:46)
[2020-11-06] MEDS: PREGABALIN 100 MG CAP PO SCH ×2 (08:46→20:31)
[2020-11-06] MEDS: CHOLECALCIFEROL 25 MCG (1000 IU) TABLET PO SCH (08:46)
[2020-11-06] MEDS: LINAGLIPTIN 5 MG TABLET PO SCH (08:46)
[2020-11-06] MEDS: TOPIRAMATE 25 MG TAB PO SCH ×2 (08:47→20:31)
[2020-11-06] MEDS: lamoTRIgine 100 MG TAB PO SCH ×2 (08:49→20:31)
[2020-11-06] MEDS: LOSARTAN 50 MG TAB PO SCH (08:50)
--- NOTE | 2020-11-06 10:52 | P.PN ---
Subjective Progress Note Date: 11/06/20 This is a 58-year-old female patient with COVID 19 related pneumonia. The patient has developed progressive worsening and hypoxic respiratory failure secondary to coronavirus/COVID 19 pneumonia. The patient was treated with a combination of treatment including Remdesivir and steroids and the patient was also treated with colchicine. The patient was given anticoagulation with Lovenox. With progressive respiratory failure, the patient was placed on high flow oxygen and subsequently the patient was switched to BiPAP for respiratory support. The patient was initially a DNR/DNI status and somewhat at a later stage she changed her mind and she was consented for short-term intubation mechanical ventilation if needed. She did not want any form of long-term aspiratory support, tracheostomy and feeding tube. The patient currently is on a BiPAP at a pressure of 12/6 cm of water and FiO2 of 100%. Chest x-ray has not shown any significant improvement. For now, the patient is on BiPAP for respir atory support, she is receiving colchicine 0.6 mg by mouth twice a day. She is on Lovenox 40 mg subcu every 12 hours. She is on Levemir insulin 15 units at bedtime in addition to a sliding scale coverage. She is receiving albuterol HFA 4 puffs every 4 hours when necessary and his Symbicort on a 160/4.52 puffs twice a day. The patient is also on IV Solu-Medrol 60 mg every 6 hours. The patient is also on antibiotic coverage with vancomycin. The patient is on BiPAP at a pressure of 12/6 cm of water with an FiO2 of 100%. The chest x-ray shows stable findings. While on the BiPAP, she is able to generate a tidal volume as high as 800. Nevertheless she is quite tachypneic and her minute ventilation is around 18-20 L per minute. Her pulse ox is order of 91%. Even while being given her medication, she seems to be desaturating out of it. Otherwise, she is hemodynamically stable. No chest pain. No altered mentation. No fever. No chills. She was unable to eat and she is currently on TPN for nutritional support. Is a PICC line in the left upper extremity. She remains on IV Solu-Medrol On 11/03/2020, the patient is being seen for a follow-up in the ICU. The patient is essentially the same as yesterday. I did some adjustment on a BiPAP setting knowing that the patient was able to generate adequate tidal volumes. Based on that, I put on a pressure of 10/5 cm of water and FiO2 started on the percent. On today's evaluation, while off the BiPAP mask for less than a mini te, the patient desaturated to the low 80s and she seems to be very much BiPAP dependent for now. The patient is sexually yesterday evening and the chest x- ray showed diffuse bilateral pulmonary infiltrates which is essentially unchanged compared to the previous chest x-ray. There may be a small effusion the left lung. In terms of her blood work, the patient's d-dimer is at 3.21 which is higher compared to yesterday. She also has an LDH which is a 64 which is comparable to yesterday and his CRP is down to 13.6, slightly improved compared to yesterday. Her blood cultures of been negative. The white cell count was not elevated from yesterday. She remains on IV Solu-Medrol 60 mg every 6 hours. She is also on a combination of colchicine 0.6 mg by mouth twice a day, Lovenox 40 mg subcu daily, zinc and the patient also is on a combination antibiotics including cefepime and vancomycin due to suspicion for a superimposed bacterial infection. 11/04/2020 I'm seeing patient for a follow-up. The patient is still struggling with her breathing. Very much BiPAP dependent at the pressure of 10/5 and FiO2 has been reduced down to 90%. The chest x-ray still showing stable bilateral pulmonary infiltrates. The patient is afebrile. The patient is on IV Solu- Medrol. The patient is on colchicine. Inflammatory markers from today show an LDH level which is slightly higher at 911 and his CRP which is slightly higher at 40.1. Renal function is stable. Her IV Solu-Medrol is currently at a dose of 40 mg every 8 hours. She remains on IV cefepime. She remains on IV vancomycin. No chest pain. She is still receiving TPN for nutritional support. This will be very difficult for this patient to take oral medication for feeding as the patient has limited reserve and she would desaturate within a few minutes after taken off the BiPAP.She is also on a combination of colchicine 0.6 mg by mouth twice a day, Lovenox 40 mg subcu daily, zinc and the patient also is on a combination antibiotics including cefepime and vancomycin due to suspicion for a superimposed bacterial infection. On 11/05/2020, the patient is being seen for a follow-up. Unfortunately she is struggling with her breathing and she seems to be more short of breath. I would say she is slightly worse compared to yesterday. I reviewed the chest x-ray and there is diffuse bilateral pulmonary infiltration and more than 50 in the right lower lobe and the area and the right lower lobe is quite dense. States that she's having some pain on the right lateral chest wall area extending posteriorly. In terms of her inflammatory markers, the patient has an LDH level of 1030 which is higher compared to yesterday. She also has a CRP of 45 which is higher compared to yesterday. Her blood gases from today was done on a BiPAP at a pressure of 10/6 6 cm of water with an FiO2 of 100% showed a pH of 7.38 with a pCO2 of 50 and pO2 of 57. Note that the patient or the covered with broad-spectrum antibiotics. She is on a combination of cefepime and vancomycin for a possible superinfection involving the right lower lobe. I also noted an elevation of d-dimer up to 5.41. As such, the patient's condition is gradually decompensating. She remains on TPN for nutritional support. She remains on Lovenox and the dose has been modified. I would suggest half a dose of Lovenox due to increased risk of bleeding on going to suggest 40 mg of Lovenox every 12 hours. She is on colchicine 0.6 mg by mouth twice a day. She is on Levemir insulin 50 units at bedtime addition to his thigh scale coverage. She remains on IV Solu-Medrol. On 11/06/2020 the patient is being seen for a follow-up. Still very much BiPAP dependent which is running at a pressure of 12 and 5 cm of water with an FiO2 of 20%. The patient is becoming progressively more fatigued, more discouraged, as the patient has been hospital for [facility]. The family she feels she is unable to do much progress. I concur that affected the patient hasn't done much progress despite our treatment. She is still short of breath. Minute ventilation remains high around 18-19 L per minute. She is able to generate a adequate tidal volume, however, her respiratory rate remains quite elevated. Her chest x-ray still showing diffuse breath and pulmonary infiltrates. I did make some adjustments yesterday. I increased the Decadron up to 20 mg IV for the next 3 days. I kept on the colchicine. She is on Lovenox 40 mg subcu every 12 hours. Inflammatory markers were high and repeat levels were not obtained today. Chest x-ray is unchanged. She has a congested cough. Unable to bring up much sputum. The right-sided chest wall is still sore. She still receiving TPN for nutrition support. She is on broad-spectrum antibiotics with a combination of c efepime and vancomycin due to suspicion for superinfection and the vancomycin has been discontinued. No fever. No chills. She is anxious. She is taking Klonopin 0.5 mg twice a day and she is also getting intermittent doses of morphine Objective - Vital Signs Vital signs: Vital Signs Temp 98.2 F 11/06/20 03:00 Pulse 99 11/06/20 09:00 Resp 40 H 11/06/20 09:00 BP 131/87 11/06/20 09:00 Pulse Ox 86 L 11/06/20 09:00 Intake & Output 11/05/20 11/06/20 11/06/20 18:59 06:59 18:59 Intake Total 1240 795 160 Output Total 1130 1250 225 Balance 110 -455 -65 Weight 82.5 kg Intake: IV 240 295 160 0.9NS 240 220 40 Cefepime 2 gm In Sodium 75 Chloride 0.9% 100 ml @ 25 mls/hr IVPB Q12HR RAE Rx #:[id number] TPN 120 Intake, IV Titration 1000 Amount Amino Acid 5%-D15w+Lytes* 1000 E* 1,000 ml @ 60 mls/hr IV .BY DURATION RAE Rx#: [id number] Oral 500 Output: Urine 1130 1250 225 Other: Voiding Method Indwelling Catheter Indwelling Catheter - Exam Mild moderate amount of respiratory distress, oriented 3. The patient's on BiPAP with settings of IPAP 12/EPAP 5, and 100%. HEENT examination is grossly unremarkable. Mucous membranes are moist. No oral lesions. Neck supple. Full range of motion. No adenopathy thyromegaly or neck vein distention. Cardiovascular examination reveals regular rhythm rate. S1-S2 normal. No S3 or S4. No discernible murmur noted. Heart sounds are distant Lungs reveal coarse bilateral rhonchi, and a few crackles. Breath sounds equal bilaterally but diminished throughout. No wheezes. Breath sounds aren't changed compared to the last 2 days examinations. Abdomen soft bowel sounds are heard. No masses or tenderness. Extremities are intact. No cyanosis clubbing or edema. Skin is without rash or lesion. Neurologic examination is brief but nonfocal. Patient is anxious. The patient is awake and alert. She is communicating. His heart to talk to her as the patient is very much BiPAP dependent and she desaturates upon talking and she also has coughing spells. She is moving all 4 extremities without any limitation. No altered mentation this point in time. She has been also communicated by writing. - Labs CBC & Chem 7: 11/06/20 05:40 11/06/20 05:40 Labs: Abnormal Lab Results - Last 24 Hours (Table) 11/05/20 11/05/20 11/05/20 Range/Units 11:54 12:17 15:28 WBC (3.8-10.6) k/uL Neutrophils # (1.3-7.7) k/uL Lymphocytes # (1.0-4.8) k/uL ABG pCO2 51 H (35-45) mmHg ABG pO2 54 L* (83-108) mmHg ABG HCO3 30 H (21-25) mmol/L ABG Total CO2 31 H (19-24) mmol/L ABG O2 Saturation 88.0 L (94-97) % BUN (7-17) mg/dL Glucose (74-99) mg/dL POC Glucose (mg/dL) 231 H 241 H (75-99) mg/dL Procalcitonin (0.02-0.09) ng/mL 11/05/20 11/05/20 11/05/20 Range/Units 17:49 20:24 23:14 WBC (3.8-10.6) k/uL Neutrophils # (1.3-7.7) k/uL Lymphocytes # (1.0-4.8) k/uL ABG pCO2 (35-45) mmHg ABG pO2 (83-108) mmHg ABG HCO3 (21-25) mmol/L ABG Total CO2 (19-24) mmol/L ABG O2 Saturation (94-97) % BUN (7-17) mg/dL Glucose (74-99) mg/dL POC Glucose (mg/dL) 206 H 176 H 173 H (75-99) mg/dL Procalcitonin (0.02-0.09) ng/mL 11/06/20 11/06/20 11/06/20 Range/Units 03:43 05:40 05:40 WBC (3.8-10.6) k/uL Neutrophils # (1.3-7.7) k/uL Lymphocytes # (1.0-4.8) k/uL ABG pCO2 (35-45) mmHg ABG pO2 (83-108) mmHg ABG HCO3 (21-25) mmol/L ABG Total CO2 (19-24) mmol/L ABG O2 Saturation (94-97) % BUN 22 H (7-17) mg/dL Glucose 136 H (74-99) mg/dL POC Glucose (mg/dL) 136 H (75-99) mg/dL Procalcitonin 0.10 H (0.02-0.09) ng/mL 11/06/20 11/06/20 Range/Units 05:40 08:39 WBC 14.5 H (3.8-10.6) k/uL Neutrophils # 12.3 H (1.3-7.7) k/uL Lymphocytes # 0.8 L (1.0-4.8) k/uL ABG pCO2 (35-45) mmHg ABG pO2 (83-108) mmHg ABG HCO3 (21-25) mmol/L ABG Total CO2 (19-24) mmol/L ABG O2 Saturation (94-97) % BUN (7-17) mg/dL Glucose (74-99) mg/dL POC Glucose (mg/dL) 134 H (75-99) mg/dL Procalcitonin (0.02-0.09) ng/mL Microbiology - Last 24 Hours (Table) 11/03/20 18:30 Nasal Screen MRSA/MSSA - Final Nasal Swab Assessment and Plan Plan: #1. Acute on chronic hypoxemic respiratory failure secondary to acute COVID 19 pneumonitis, status post remdesivir, currently on IV Decadron and she is also on colchicine and Lovenox today. Condition is gradually decompensating. The patient's inflammatory markers from yesterday were elevated and the chest x-ray from today shows no major interval change. Progressively becoming more fatigued and anxious and tired while being on a BiPAP. We discussed the possibility of intubation mechanical ventilation. She is open to this idea. However I would suggest an early tracheostomy tube insertion if we go that route as the patient may end up having a prolonged course and a prolonged recovery and I would like to support her with a trach rather than regular orotracheal tube, knowing that the patient will and up having a prolonged intubation mechanical ventilation. #2. History of COPD #3. Elevated transaminases secondary to COVID 19 infection #4. Type 2 diabetes mellitus, currently on Levemir insulin 32 units at bedtime addition to a slight scale coverage, and addition to oral hypoglycemic medication including Januvia and Tradjenta. She is receiving TPN for nutritional support. #5. History of obstructive sleep apnea syndrome #6. Dyslipidemia #7. History of degenerative joint disease #8. History of bipolar disorder Plan: Highly considering intubation mechanical ventilation this patient. She is progressively decompensating and she is developing respiratory insufficiency and she would benefit from mechanical ventilation. I acknowledge the fact that this may end up being a lengthy process and I may suggest early tracheostomy tube insertion of this patient. Continue Decadron for the next few days at a dose of 20 mg IV every 24 hours Drop the Lovenox dose to 40 mg every 12 hours as the patient has not confirmed to have any venous thrombolic disease and this is prophylactic Continue colchicine for now Monitor inflammatory markers Continue same antibiotic coverage Blood sugar management as per medicine. With increased dose of Decadron, she may need a higher dose of Levemir and will make adjustments based on her blood sugar control Continue TPN for nutritional support Condition is critical and we'll keep the patient ICU for now. Condition is critical. Intubation process will be done in the ICU and will make further recommendations based on her progress. Critical care evaluation, >30min. Time with Patient: Greater than 30
[2020-11-06] MEDS ORDERED: ROCURONIUM 10 MG/ML (5 ML VIAL) IV ONE (11:00)
[2020-11-06] MEDS ORDERED: DEXMEDETOMIDINE/0.9% NACL(PMX) 400 MCG in EMPTY BAG 1 BAG IV SCH (11:00)
[2020-11-06] MEDS ORDERED: PROPOFOL 10 MG/ML 20 ML VIAL IV ONE (11:00)
[2020-11-06] MEDS ORDERED: SUCCINYLCHOLINE CHLORIDE VIAL 200 MG/10 ML VIAL IV ONE (11:00)
[2020-11-06] MEDS ORDERED: propofoL 50 ML IV ONE (11:19)
[2020-11-06 11:48] LABS: ABG Base Excess 3.2 mmol/L; ABG HCO3 31 mmol/L (21-25); ABG Oxygen Saturation 33.3 % (94-97); ABG PH 7.23 (7.35-7.45); ABG TCO2 33 mmol/L (19-24); Allen Test Performed? Yes
[2020-11-06 11:51] LABS: ABG PCO2 74 mmHg (35-45); ABG PO2 24 mmHg (83-108)
[2020-11-06] MEDS ORDERED: CISATRACURIUM 2 MG/ML 5 ML VIAL IV ONE (11:53)
[2020-11-06] MEDS ORDERED: CLEVIDIPINE BUTYRATE 25 MG/50 ML VIAL IV ONE (12:03)
[2020-11-06] MEDS: CLEVIDIPINE BUTYRATE 25 MG in EMPTY BAG 1 BAG IV SCH (12:06)
--- NOTE | 2020-11-06 12:10 | XR ---
EXAMINATION TYPE: XR chest 1V portable DATE OF EXAM: 11/06/2020 COMPARISON: 1221 HISTORY: SOB, Follow Up FINDINGS: Endotracheal tube is well-positioned. NG tube is seen coursing into the stomach. Left-sided PICC line is unchanged in position. Coarse bilateral infiltrates persist bilaterally with more confluent process at the bases with interv al progression. Stable appearance of the cardio-mediastinal structures at this time. Pleural effusion unchanged. IMPRESSION: 1. Indwelling tubes and catheters as noted. Progressive infiltrates.
[2020-11-06 12:24] LABS: Glucose,Whole Blood 227 mg/dL (75-99)
[2020-11-06 12:57] LABS: ABG Base Excess 1.9 mmol/L; ABG HCO3 30 mmol/L (21-25); ABG Oxygen Saturation 98.8 % (94-97); ABG PH 7.21 (7.35-7.45); ABG PO2 159 mmHg (83-108); ABG TCO2 32 mmol/L (19-24); Allen Test Performed? Yes
[2020-11-06 13:00] LABS: ABG PCO2 75 mmHg (35-45)
[2020-11-06] MEDS: FAT EMULSION 20% 250 ML IV SCH (15:31)
[2020-11-06] MEDS: PANTOPRAZOLE 40 MG/10 ML VIAL IVP SCH (15:38)
[2020-11-06 16:26] LABS: Glucose,Whole Blood 281 mg/dL (75-99)
--- NOTE | 2020-11-06 16:33 | PN ---
PROGRESS NOTE DATE OF SERVICE: 11/06/2020 REASON FOR FOLLOWUP: Pneumonia. INTERVAL HISTORY: The patient did have overall worsening on her clinical condition. This patient went into respiratory distress. The patient ended up getting intubated. reported by the nursing staff. The patient is currently hemodynamically stable, not on pressor support. Currently on 100% FiO2. No significant purulent secretions in the ET has been reported or any diarrhea. PHYSICAL EXAMINATION: Blood pressure 147/91 with a pulse of 125, temperature 98. She is 96% on 100% on FiO2. General description is a middle-aged female lying in bed, intubated on the vent. RESPIRATORY SYSTEM: Unlabored breathing, coarse breath sounds bilaterally. HEART: S1, S2. Tachycardic. ABDOMEN: Soft. LABS: Hemoglobin 12.5, white count 14.5, BUN of 22, creatinine 0.60. DIAGNOSTIC IMPRESSION AND PLAN: Patient with acute respiratory failure, multifactorial in this patient did have a component of pneumonia and possible ARDS pattern from COVID-19. The patient has been intubated. Sputum culture has been requested. On empiric cefepime to continue and monitor clinical course closely. MMODL / IJN: [id number] /
--- NOTE | 2020-11-06 18:53 | P.PN ---
Progress Note - Text Progress Note Date: 11/06/20 Chief Complaint: Short of breath History of presenting complaint: This is a 60-year-old patient who follows with Yajaira Barber. Chronic stable medical conditions include diabetes, fibromyalgia, GERD, hypertension, hyperlipidemia, osteoarthritis, obstructive sleep apnea. She is on 3 L of nasal cannula home. Night has been getting it more often lately. Diabetic peripheral neuropathy, obstructive sleep apnea does not use CPAP, chronic kidney disease, arthritis in multiple joints, bipolar schizoaffective disorder. Patient presents of 1 week of increasing shortness of breath. Cough. Slight phlegm. Has had fever for 2 days. Decrease appetite some headaches no loss of taste or smell. No diarrhea. Body aches all over. Patient tested for COVID 19 in the ER. Still somewhat tired rundown. Admitted with bilateral COVID 19 pneumonia, acute hypoxic respiratory failure, acute COPD exacerbation. Patient was started on dexamethasone, Lovenox, Remdesivir, vitamin C vitamin D and zinc. Pulmonary was consulted. Patient has been requiring BiPAP. On October 28 because of increasing oxygen requirement patient is moved to the ICU. Patient was started on IV cefepime and vancomycin. Given convalescent plasma on October 30. PICC line placed-started on TPN and lipids. intubated November 06 Today-ICU: Patient was intubated earlier today. On FiO2 100% and a PEEP of 20. Sinus tachycardia. On a propofol drip. Prone position. Review of systems: Patient intubated Active Medications Acetaminophen (Acetaminophen Tab 325 Mg Tab) 650 mg PO Q6HR PRN PRN Reason: Fever and/ or Pain Last Admin: 11/05/20 00:06 Dose: 650 mg Documented by: Albuterol Sulfate (Albuterol Hfa Inhaler) 4 puff INHALATION Q4H [facility] Last Admin: 11/06/20 15:58 Dose: 4 puff Documented by: Aripiprazole (Aripiprazole 10 Mg Tab) 10 mg PO HS [facility] Last Admin: 11/05/20 21:12 Dose: 10 mg Documented by: Aripiprazole (Aripiprazole 20 Mg Tab) 20 mg PO DAILY [facility] Last Admin: 11/06/20 08:46 Dose: 20 mg Documented by: Artificial Tears (Artificial Tears-Hypromellose Drops 15 Ml Btl) 1 drops BOTH EYES QID PRN PRN Reason: Dry Eye(s) Last Admin: 10/29/20 18:47 Dose: 1 drops Documented by: Ascorbic Acid (Ascorbic Acid 500 Mg Tab) 500 mg PO DAILY [facility] Last Admin: 11/06/20 08:46 Dose: 500 mg Documented by: Atorvastatin Calcium (Atorvastatin 20 Mg Tab) 20 mg PO DAILY [facility] Last Admin: 11/06/20 08:45 Dose: 20 mg Documented by: Budesonide/Formoterol Fumarate (Symbicort 160-4.5 Mcg Inhaler) 2 puff INHALATION RT-BID [facility] Last Admin: 11/06/20 08:31 Dose: 2 puff Documented by: Chlorhexidine Gluconate (Chlorhexidine Gluconate 15 Ml Cup) 15 ml MUCOUS MEM BID [facility] Cholecalciferol (Cholecalciferol 25 Mcg (1000 Iu) Tablet) 100 mcg PO DAILY [facility] Last Admin: 11/06/20 08:46 Dose: 100 mcg Documented by: Clonazepam (Clonazepam 0.5 Mg Tab) 0.5 mg PO HS [facility] Last Admin: 11/05/20 20:33 Dose: 0.5 mg Documented by: Colchicine (Colchicine 0.6 Mg Each) 0.6 mg PO BID [facility] Last Admin: 11/06/20 08:45 Dose: 0.6 mg Documented by: Enoxaparin Sodium (Enoxaparin 40 Mg/0.4 Ml Syringe) 40 mg SQ Q12HR [facility] Last Admin: 11/06/20 08:44 Dose: 40 mg Documented by: Cefepime HCl 2 gm/ Sodium (Chloride) 100 mls @ 25 mls/hr IVPB Q12HR [facility] Last Admin: 11/06/20 08:44 Dose: 25 mls/hr Documented by: Amino Ac/Electrol/Dextrose/Calcium (Clinimix E 5%-D15% Solution) 1,000 mls @ 60 mls/hr IV .BY DURATION [facility] Stop: 11/06/20 19:59 Last Admin: 11/06/20 03:36 Dose: 60 mls/hr Documented by: Parenteral Vitamin Supplement 10 ml/ Chromium/Copper/Manganese/Seleni/Zn 1 ml/Amino Ac/Electrol/Dextrose/Calcium 1,011 mls @ 60 mls/hr IV .BY DURATION [facility] Stop: 11/06/20 19:59 Last Admin: 11/05/20 10:24 Dose: 60 mls/hr Documented by: Fat Emulsion Intravenous (Lipids 20%) 250 mls @ 20.833 mls/hr IV MoWeFr [facility] Last Admin: 11/06/20 15:31 Dose: Not Given Documented by: Dexamethasone Sodium Phosphate (20 mg/ Dextrose/Water) 52 mls @ 100 mls/hr IV DAILY [facility] Stop: 11/07/20 09:32 Last Admin: 11/06/20 08:44 Dose: 100 mls/hr Documented by: Propofol 500 mg/ IV Solution 50 mls @ 0 mls/hr IV .Q0M [facility]; Protocol Last Admin: 11/06/20 18:00 Dose: 60 mcg/kg/min, 29.7 mls/hr Documented by: Clevidipine 25 mg/ IV Solution 50 mls @ 2 mls/hr IV .Q24H [facility]; Protocol Last Admin: 11/06/20 12:06 Dose: 1 mg/hr, 2 mls/hr Documented by: Parenteral Vitamin Supplement 10 ml/ Zinc/Copper/Manganese/Selenium 1 ml/ Amino Ac/Electrol/Dextrose/Calcium 1,011 mls @ 40 mls/hr IV .Q24H [facility] Insulin Aspart (Insulin Aspart (Novolog) 100 Unit/Ml Vial) 0 unit SQ Q4H [facility]; Protocol Last Admin: 11/06/20 16:40 Dose: 8 unit Documented by: Insulin Detemir (Insulin Detemir (Levemir) 100 Unit/Ml Syr) 32 unit SQ HS [facility] Last Admin: 11/05/20 20:32 Dose: 32 unit Documented by: Lamotrigine (Lamotrigine 100 Mg Tab) 150 mg PO BID [facility] Last Admin: 11/06/20 08:49 Dose: 150 mg Documented by: Lidocaine (Lidocaine 5% Patch) 1 patch TOPICAL DAILY [facility] Last Admin: 11/06/20 08:42 Dose: 1 patch Documented by: Linagliptin (Linagliptin 5 Mg Tablet) 5 mg PO DAILY [facility] Last Admin: 11/06/20 08:46 Dose: 5 mg Documented by: Losartan Potassium (Losartan 50 Mg Tab) 50 mg PO DAILY [facility] Last Admin: 11/06/20 08:50 Dose: 50 mg Documented by: Meclizine HCl (Meclizine 25 Mg Tab) 25 mg PO Q8H PRN PRN Reason: Nausea And Vomiting Miscellaneous Information (Magnesium Replacement Protocol 1 Each Misc) 1 each MISCELLANE DAILY PRN; Protocol PRN Reason: Per Protocol Miscellaneous Information (Potassium Replacement Protocol 1 Each Mis) 1 each MISCELLANE DAILY PRN; Protocol PRN Reason: Per Protocol Morphine Sulfate (Morphine Sulfate 2 Mg/Ml Syringe) 2 mg IVP Q4H PRN PRN Reason: Pain/Discomfort Last Admin: 11/06/20 08:43 Dose: 2 mg Documented by: Oxcarbazepine (Oxcarbazepine 150 Mg Tab) 150 mg PO BID [facility] Last Admin: 11/06/20 08:46 Dose: 150 mg Documented by: Pantoprazole Sodium (Pantoprazole 40 Mg/10 Ml Vial) 40 mg IVP DAILY [facility] Last Admin: 11/06/20 15:38 Dose: 40 mg Documented by: Pregabalin (Pregabalin 100 Mg Cap) 100 mg PO BID [facility] Last Admin: 11/06/20 08:46 Dose: 100 mg Documented by: Sumatriptan Succinate (Sumatriptan Succinate 50 Mg Tab) 100 mg PO BID PRN PRN Reason: Migraine Headache Topiramate (Topiramate 25 Mg Tab) 50 mg PO BID [facility] Last Admin: 11/06/20 08:47 Dose: 50 mg Documented by: Zinc Sulfate (Zinc Sulfate 220 Mg Cap) 220 mg PO DAILY [facility] Last Admin: 11/06/20 08:45 Dose: 220 mg Documented by: Past medical history to include: COPD, diabetes, fibromyalgia, GERD, hyperlipidemia, hypertension, obstructive sleep apnea does not use CPAP, home oxygen 3 L normal. Night, diabetic periphe ral neuropathy, chronic kidney disease, bipolar depression, schizoaffective disorder. Social history: Lives with her daughter. Disabled. Home oxygen. Smoked from 9065 through 2009. In the past used several street drugs but not so since 1989. Physical examination: VITAL SIGNS: 99.1, 126, 23, 147/91, 95% on ventilator GENERAL: Prone position, intubated Physical exam as per pulmonary and nursing INVESTIGATIONS, reviewed in the clinical context: November 06: WBC 14.5 hemoglobin 12.5 potassium 3.9 creatinine 0.60 pro- calcitonin 0.106 November 05: WBC-14.2 lymphocytes 0.3 d-dimer 5.41, CRP 45.2. ABG-pH 7.38, pO2 57 pCO2 50 MRSA nasal screen-negative. November 04: D-dimer 4.4 CRP 40.1 pro-calcitonin 0.11 November 03: D-dimer 3.21 CRP 13.6 October 8: White count 10 lymphocytes 0.3 d-dimer 1.95 CRP 16.7 October 7: Potassium 4.1 creatinine 0.65 CRP 33.4 Fabry 6: D-dimer 1.03 CRP 74 October 5: CRP 201.7 October 4: D-dimer 0.65 CRP 179 sodium 131 potassium 3.3 white count 32 October 28: D-dimer 0.78 CRP 169 pro-calcitonin 0.38 Chest x-ray from yesterday-scattered infiltrates Admission labs: White count 7.2 hemoglobin 15.1 decreased lymphocytes d-dimer 0.85 potassium 3.3 creatinine 0.90 glucose 205 EST 106 ALT 103 CRP 37.2 procalcitonin 0.27 Influenza type A, type B both not detected. RSV P/Cr-not detected. Coronavirus [PCR]-detected EKG tracing personally reviewed by me-normal sinus rhythm some slight ST segment changes Chest x-ray film personally reviewed by me-bilateral basilar infiltrates Assessment and plan: -Bilateral COVID 19 pneumonia causing sepsis. Slow to respond. Has received Remdesivir. Convalescent plasma. On colchicine. Change from dexamethasone to IV Solu-Medrol on October 30. then changed over to dexamethasone 20 mg IV daily, and Lovenox was decreased to 40 mg subcu every 12 -Also being covered for secondary bacterial pneumonia infection with IV cefepime, IV vancomycin.. MRSA nasal screen negative. vancomycin discontinued -Acute COPD exacerbation in an [id number] to respond -acute hypoxic respiratory failure, requiring BiPAP-; intubated November 06. Worsening on 100% FiO2 -Diabetes mellitus type 2, uncontrolled with hyperglycemia from steroids. Levemir to 32 units bedtime -Chronic fibromyalgia -GERD -Essential hypertension, on Cozaar -Hyperlipidemia, on Lipitor -Obstructive sleep apnea does not use CPAP -Diabetic peripheral neuropathy -Primary osteoarthritis of multiple joint -TPN and lipids Prognosis guardeds
[2020-11-06] MEDS ORDERED: 1: AMINO ACID 5%-D15W+LYTES*E* 1,000 ML 2: MVI, ADULT NO.4 WITH VIT K 10 ML, TRACE (CON IV SCH ×3 (20:00)
[2020-11-06 20:02] LABS: Glucose,Whole Blood 239 mg/dL (75-99)
[2020-11-06] MEDS: CHLORHEXIDINE GLUCONATE 15 ML CUP MUCOUS MEM SCH (20:30)
[2020-11-06] MEDS: ARIPiprazole 10 MG TAB PO SCH (20:31)
[2020-11-06] MEDS: clonazePAM 0.5 MG TAB PO SCH (20:31)
[2020-11-06] MEDS: MVI, ADULT NO.4 WITH VIT K 10 ML, TRACE (CONC-1ML/DOSE) 1 ML in AMINO ACID 4.25%-D10W+L... IV SCH ×3 (20:31)
[2020-11-06] MEDS: INSULIN DETEMIR (LEVEMIR) 100 UNIT/ML SYR SQ SCH (20:32)
[2020-11-06 23:44] LABS: Glucose,Whole Blood 192 mg/dL (75-99)
[2020-11-07] MEDS: INSULIN ASPART (NovoLOG) 100 UNIT/ML VIAL SQ SCH ×7 (00:21→23:54)
[2020-11-07] MEDS: ALBUTEROL HFA INHALER INHALATION SCH ×5 (03:47→19:55)
[2020-11-07 04:22] LABS: Basophils % (A) 0 %; Eosinophils % (A) 0 %; HCT 38.7 % (34.0-46.0); HGB 12.6 gm/dL (11.4-16.0); Lymphocytes # (A) 0.2 k/uL (1.0-4.8); Lymphocytes % (A) 1 %; MCH 29.1 pg (25.0-35.0); MCHC 32.5 g/dL (31.0-37.0); MCV 89.6 fL (80.0-100.0); Mean Platelet Volume 7.5; Monocytes # (A) 0.2 k/uL (0-1.0); Monocytes % (A) 2 %; Neutrophils # (A) 12.1 k/uL (1.3-7.7); Neutrophils % (A) 96 %; Platelet Count 321 k/uL (150-450); RBC 4.32 m/uL (3.80-5.40); WBC 12.6 k/uL (3.8-10.6)
[2020-11-07 04:42] LABS: African American GFR (CKD) >90 (>60 ml/min/1.73 sqM); Anion Gap 5 mmol/L; Blood Urea Nitrogen 33 mg/dL (7-17); Calcium 8.7 mg/dL (8.4-10.2); Carbon Dioxide 34 mmol/L (22-30); Chloride 96 mmol/L (98-107); Glucose 248 mg/dL (74-99); LDH 782 U/L (313-618); Magnesium 2.2 mg/dL (1.6-2.3); Non-African American GFR(CKD) 79 (>60 ml/min/1.73 sqM); Phosphorus 5.1 mg/dL (2.5-4.5); Potassium 4.6 mmol/L (3.5-5.1); Sodium 135 mmol/L (137-145)
[2020-11-07 04:57] LABS: Glucose,Whole Blood 230 mg/dL (75-99)
[2020-11-07 04:58] LABS: ABG Base Excess 6.1 mmol/L; ABG HCO3 32 mmol/L (21-25); ABG Oxygen Saturation 99.4 % (94-97); ABG PCO2 61 mmHg (35-45); ABG PH 7.33 (7.35-7.45); ABG PO2 139 mmHg (83-108); ABG TCO2 34 mmol/L (19-24); Allen Test Performed? Yes
[2020-11-07 05:11] LABS: C Reactive Protein 179.2 mg/L (<10.0)
[2020-11-07] MEDS ORDERED: SODIUM CHLORIDE 0.9% 250 ML IV ONE (06:00)
[2020-11-07 07:40] LABS: Glucose,Whole Blood 211 mg/dL (75-99)
[2020-11-07] MEDS: lamoTRIgine 100 MG TAB PO SCH ×2 (09:12→20:01)
[2020-11-07] MEDS: OXcarbazepine 150 MG TAB PO SCH ×2 (09:13→20:04)
[2020-11-07] MEDS: PANTOPRAZOLE 40 MG/10 ML VIAL IVP SCH (09:13)
[2020-11-07] MEDS: LINAGLIPTIN 5 MG TABLET PO SCH (09:13)
[2020-11-07] MEDS: LOSARTAN 50 MG TAB PO SCH (09:13)
[2020-11-07] MEDS: LIDOCAINE 5% PATCH TOPICAL SCH (09:13)
[2020-11-07] MEDS: TOPIRAMATE 25 MG TAB PO SCH ×2 (09:14→20:04)
[2020-11-07] MEDS: PREGABALIN 100 MG CAP PO SCH ×2 (09:14→20:01)
[2020-11-07] MEDS: ZINC SULFATE 220 MG CAP PO SCH (09:14)
[2020-11-07] MEDS: CHLORHEXIDINE GLUCONATE 15 ML CUP MUCOUS MEM SCH ×2 (09:15→20:07)
[2020-11-07] MEDS: ATORVASTATIN 20 MG TAB PO SCH (09:15)
[2020-11-07] MEDS: CEFEPIME 2 GM in SODIUM CHLORIDE 0.9% 100 ML IVPB SCH ×2 (09:15→20:07)
[2020-11-07] MEDS: COLCHICINE 0.6 MG EACH PO SCH ×2 (09:15→20:04)
[2020-11-07] MEDS: ASCORBIC ACID 500 MG TAB PO SCH (09:15)
[2020-11-07] MEDS: CHOLECALCIFEROL 25 MCG (1000 IU) TABLET PO SCH (09:15)
[2020-11-07] MEDS: SYMBICORT 160-4.5 MCG INHALER INHALATION SCH ×2 (09:22→19:55)
[2020-11-07] MEDS: DEXAMETHASONE SOD PHOSPHATE 20 MG in DEXTROSE 5% IN WATER 50 ML IV SCH ×2 (10:41)
--- NOTE | 2020-11-07 11:13 | P.PN ---
Subjective Progress Note Date: 11/07/20 This is a 58-year-old female patient with COVID 19 related pneumonia. The patient has developed progressive worsening and hypoxic respiratory failure secondary to coronavirus/COVID 19 pneumonia. The patient was treated with a combination of treatment including Remdesivir and steroids and the patient was also treated with colchicine. The patient was given anticoagulation with Lovenox. With progressive respiratory failure, the patient was placed on high flow oxygen and subsequently the patient was switched to BiPAP for respiratory support. The patient was initially a DNR/DNI status and somewhat at a later stage she changed her mind and she was consented for short-term intubation mechanical ventilation if needed. She did not want any form of long-term aspiratory support, tracheostomy and feeding tube. The patient currently is on a BiPAP at a pressure of 12/6 cm of water and FiO2 of 100%. Chest x-ray has not shown any significant improvement. For now, the patient is on BiPAP for respir atory support, she is receiving colchicine 0.6 mg by mouth twice a day. She is on Lovenox 40 mg subcu every 12 hours. She is on Levemir insulin 15 units at bedtime in addition to a sliding scale coverage. She is receiving albuterol HFA 4 puffs every 4 hours when necessary and his Symbicort on a 160/4.52 puffs twice a day. The patient is also on IV Solu-Medrol 60 mg every 6 hours. The patient is also on antibiotic coverage with vancomycin. The patient is on BiPAP at a pressure of 12/6 cm of water with an FiO2 of 100%. The chest x-ray shows stable findings. While on the BiPAP, she is able to generate a tidal volume as high as 800. Nevertheless she is quite tachypneic and her minute ventilation is around 18-20 L per minute. Her pulse ox is order of 91%. Even while being given her medication, she seems to be desaturating out of it. Otherwise, she is hemodynamically stable. No chest pain. No altered mentation. No fever. No chills. She was unable to eat and she is currently on TPN for nutritional support. Is a PICC line in the left upper extremity. She remains on IV Solu-Medrol On 11/03/2020, the patient is being seen for a follow-up in the ICU. The patient is essentially the same as yesterday. I did some adjustment on a BiPAP setting knowing that the patient was able to generate adequate tidal volumes. Based on that, I put on a pressure of 10/5 cm of water and FiO2 started on the percent. On today's evaluation, while off the BiPAP mask for less than a mini te, the patient desaturated to the low 80s and she seems to be very much BiPAP dependent for now. The patient is sexually yesterday evening and the chest x- ray showed diffuse bilateral pulmonary infiltrates which is essentially unchanged compared to the previous chest x-ray. There may be a small effusion the left lung. In terms of her blood work, the patient's d-dimer is at 3.21 which is higher compared to yesterday. She also has an LDH which is a 64 which is comparable to yesterday and his CRP is down to 13.6, slightly improved compared to yesterday. Her blood cultures of been negative. The white cell count was not elevated from yesterday. She remains on IV Solu-Medrol 60 mg every 6 hours. She is also on a combination of colchicine 0.6 mg by mouth twice a day, Lovenox 40 mg subcu daily, zinc and the patient also is on a combination antibiotics including cefepime and vancomycin due to suspicion for a superimposed bacterial infection. 11/04/2020 I'm seeing patient for a follow-up. The patient is still struggling with her breathing. Very much BiPAP dependent at the pressure of 10/5 and FiO2 has been reduced down to 90%. The chest x-ray still showing stable bilateral pulmonary infiltrates. The patient is afebrile. The patient is on IV Solu- Medrol. The patient is on colchicine. Inflammatory markers from today show an LDH level which is slightly higher at 911 and his CRP which is slightly higher at 40.1. Renal function is stable. Her IV Solu-Medrol is currently at a dose of 40 mg every 8 hours. She remains on IV cefepime. She remains on IV vancomycin. No chest pain. She is still receiving TPN for nutritional support. This will be very difficult for this patient to take oral medication for feeding as the patient has limited reserve and she would desaturate within a few minutes after taken off the BiPAP.She is also on a combination of colchicine 0.6 mg by mouth twice a day, Lovenox 40 mg subcu daily, zinc and the patient also is on a combination antibiotics including cefepime and vancomycin due to suspicion for a superimposed bacterial infection. On 11/05/2020, the patient is being seen for a follow-up. Unfortunately she is struggling with her breathing and she seems to be more short of breath. I would say she is slightly worse compared to yesterday. I reviewed the chest x-ray and there is diffuse bilateral pulmonary infiltration and more than 50 in the right lower lobe and the area and the right lower lobe is quite dense. States that she's having some pain on the right lateral chest wall area extending posteriorly. In terms of her inflammatory markers, the patient has an LDH level of 1030 which is higher compared to yesterday. She also has a CRP of 45 which is higher compared to yesterday. Her blood gases from today was done on a BiPAP at a pressure of 10/6 6 cm of water with an FiO2 of 100% showed a pH of 7.38 with a pCO2 of 50 and pO2 of 57. Note that the patient or the covered with broad-spectrum antibiotics. She is on a combination of cefepime and vancomycin for a possible superinfection involving the right lower lobe. I also noted an elevation of d-dimer up to 5.41. As such, the patient's condition is gradually decompensating. She remains on TPN for nutritional support. She remains on Lovenox and the dose has been modified. I would suggest half a dose of Lovenox due to increased risk of bleeding on going to suggest 40 mg of Lovenox every 12 hours. She is on colchicine 0.6 mg by mouth twice a day. She is on Levemir insulin 50 units at bedtime addition to his thigh scale coverage. She remains on IV Solu-Medrol. On 11/06/2020 the patient is being seen for a follow-up. Still very much BiPAP dependent which is running at a pressure of 12 and 5 cm of water with an FiO2 of 20%. The patient is becoming progressively more fatigued, more discouraged, as the patient has been hospital for [facility]. The family she feels she is unable to do much progress. I concur that affected the patient hasn't done much progress despite our treatment. She is still short of breath. Minute ventilation remains high around 18-19 L per minute. She is able to generate a adequate tidal volume, however, her respiratory rate remains quite elevated. Her chest x-ray still showing diffuse breath and pulmonary infiltrates. I did make some adjustments yesterday. I increased the Decadron up to 20 mg IV for the next 3 days. I kept on the colchicine. She is on Lovenox 40 mg subcu every 12 hours. Inflammatory markers were high and repeat levels were not obtained today. Chest x-ray is unchanged. She has a congested cough. Unable to bring up much sputum. The right-sided chest wall is still sore. She still receiving TPN for nutrition support. She is on broad-spectrum antibiotics with a combination of c efepime and vancomycin due to suspicion for superinfection and the vancomycin has been discontinued. No fever. No chills. She is anxious. She is taking Klonopin 0.5 mg twice a day and she is also getting intermittent doses of morphine On 11/07/2020, the patient is being seen in follow-up. The patient was intubated yesterday and postintubation she became profoundly hypoxic and based on that, the appropriate ventilator changes were done. I ultimately put the patient on an assist-control mode at the rate of 78 with a tidal volume of 350 and the PEEP was at 20 with an FiO2 of 100%. Subsequently, we were able to wean down the PEEP down to 75%. The most recent blood gases was a 75% FiO2 showed a pH of 7.33 with a pCO2 of 51 and pO2 of 139. She is currently in a prone body positioning. I'm going to liver back to supine today after being thrown for the past 16 hours. No chest x-rays available from today. Meanwhile, the patient has a peak airway pressure that around 33 while she is been in a prone body position. On today's evaluation, she is sedated with propofol which is curren tly running at 45 micrograms per KG per minute. She is still on TPN for nutritional support. She is hemodynamically stable on no pressors. IV fluids are all. She has a PICC line and she also has an arterial line. On today's blood work, his CRP level is up to 179, pro calcitonin from yesterday was 0.1, her LDH level is at 782, there was a causative 12.6 with a hemoglobin of 12.6. Platelet count is at 96. Renal function stable with a creatinine of 0.1. The net fluid balance over the past 24 hours is been negative to 45 mL. The patient remains on Decadron 20 mg IV, colchicine 0.6 mg by mouth twice a day, she is also on zinc sulfate and multivitamins. Antibiotic coverage is with IV ce fepime. Lovenox Discontinued yesterday as the patient developed coffee-ground emesis and this was also noted in her OG. Based on that, no enteral feeding has been done and the patient is still on TPN for nutritional support. Objective - Vital Signs Vital signs: Vital Signs Temp 101.3 F H 11/06/20 20:00 Pulse 108 H 11/07/20 07:00 Resp 30 H 11/07/20 07:00 BP 147/91 11/06/20 19:00 Pulse Ox 96 11/07/20 07:00 Intake & Output 11/06/20 11/07/20 11/07/20 18:59 06:59 18:59 Intake Total 233.148 0157.708 19.599 Output Total 675 975 Balance 266.875 170.708 19.599 Weight 82.5 kg 82.7 kg Intake: IV 880 909 .9 NS pressure bag 9 0.9NS 220 260 Cefepime 2 gm In Sodium 100 Chloride 0.9% 100 ml @ 25 mls/hr IVPB Q12HR RAE Rx #:[id number] TPN 660 540 Intake, IV Titration 61.875 236.708 19.599 Amount propofoL 500 mg In Empty 61.875 236.708 19.599 Bag 1 bag @ Titrate IV . Q0M RAE Rx#:[id number] Output: Gastric Drainage 450 Urine 675 525 Other: Voiding Method Indwelling Catheter Indwelling Catheter ABP, PAP, CO, CI - Last Documented Arterial Blood Pressure 104/57 - Exam The patient is currently in a prone body positioning. The patient is intubated on a mechanical ventilator. She is been prone for the past 16 hours and I'm going to put her back supine. Head exam was generally normal. There was no scleral icterus or corneal arcus. Mucous membranes were moist. Neck was supple and without jugular venous distension, thyromegaly, or carotid bruits. Carotids were easily palpable bilaterally. There was no adenopathy. Orogastric and orotracheal tube are both in place No nausea. No adenopathy thyromegaly or neck vein distention. Cardiovascular examination reveals regular rhythm rate. S1-S2 normal. No S3 or S4. No discernible murmur noted. Heart sounds are distant Lungs reveal coarse bilateral rhonchi, and a few crackles. Breath sounds equal bilaterally but diminished throughout. No wheezes. Breath sounds aren't changed compared to the last 2 days examinations. Abdomen soft bowel sounds are heard. No masses or tenderness. Extremities are intact. No cyanosis clubbing or edema. Skin is without rash or lesion. Neurologic examination is brief but nonfocal. Patient is sedated. The patient is not paralyzed for now. - Labs CBC & Chem 7: 11/07/20 04:05 11/07/20 04:05 Labs: Abnormal Lab Results - Last 24 Hours (Table) 11/06/20 11/06/20 11/06/20 Range/Units 11:47 12:23 12:55 WBC (3.8-10.6) k/uL Neutrophils # (1.3-7.7) k/uL Lymphocytes # (1.0-4.8) k/uL D-Dimer (<0.60) mg/L FEU ABG pH 7.23 L 7.21 L (7.35-7.45) ABG pCO2 74 H* 75 H* (35-45) mmHg ABG pO2 24 L* 159 H (83-108) mmHg ABG HCO3 31 H 30 H (21-25) mmol/L ABG Total CO2 33 H 32 H (19-24) mmol/L ABG O2 Saturation 33.3 L 98.8 H (94-97) % Sodium (137-145) mmol/L Chloride (98-107) mmol/L Carbon Dioxide (22-30) mmol/L BUN (7-17) mg/dL Glucose (74-99) mg/dL POC Glucose (mg/dL) 227 H (75-99) mg/dL Phosphorus (2.5-4.5) mg/dL Lactate Dehydrogenase (313-618) U/L C-Reactive Protein (<10.0) mg/L 11/06/20 11/06/20 11/06/20 Range/Units 16:24 20:00 23:42 WBC (3.8-10.6) k/uL Neutrophils # (1.3-7.7) k/uL Lymphocytes # (1.0-4.8) k/uL D-Dimer (<0.60) mg/L FEU ABG pH (7.35-7.45) ABG pCO2 (35-45) mmHg ABG pO2 (83-108) mmHg ABG HCO3 (21-25) mmol/L ABG Total CO2 (19-24) mmol/L ABG O2 Saturation (94-97) % Sodium (137-145) mmol/L Chloride (98-107) mmol/L Carbon Dioxide (22-30) mmol/L BUN (7-17) mg/dL Glucose (74-99) mg/dL POC Glucose (mg/dL) 281 H 239 H 192 H (75-99) mg/dL Phosphorus (2.5-4.5) mg/dL Lactate Dehydrogenase (313-618) U/L C-Reactive Protein (<10.0) mg/L 11/07/20 11/07/20 11/07/20 Range/Units 04:05 04:05 04:05 WBC 12.6 H (3.8-10.6) k/uL Neutrophils # 12.1 H (1.3-7.7) k/uL Lymphocytes # 0.2 L (1.0-4.8) k/uL D-Dimer 2.46 H (<0.60) mg/L FEU ABG pH (7.35-7.45) ABG pCO2 (35-45) mmHg ABG pO2 (83-108) mmHg ABG HCO3 (21-25) mmol/L ABG Total CO2 (19-24) mmol/L ABG O2 Saturation (94-97) % Sodium 135 L (137-145) mmol/L Chloride 96 L (98-107) mmol/L Carbon Dioxide 34 H (22-30) mmol/L BUN 33 H (7-17) mg/dL Glucose 248 H (74-99) mg/dL POC Glucose (mg/dL) (75-99) mg/dL Phosphorus 5.1 H (2.5-4.5) mg/dL Lactate Dehydrogenase 782 H (313-618) U/L C-Reactive Protein 179.2 H (<10.0) mg/L 11/07/20 11/07/20 11/07/20 Range/Units 04:55 04:55 07:39 WBC (3.8-10.6) k/uL Neutrophils # (1.3-7.7) k/uL Lymphocytes # (1.0-4.8) k/uL D-Dimer (<0.60) mg/L FEU ABG pH 7.33 L (7.35-7.45) ABG pCO2 61 H (35-45) mmHg ABG pO2 139 H (83-108) mmHg ABG HCO3 32 H (21-25) mmol/L ABG Total CO2 34 H (19-24) mmol/L ABG O2 Saturation 99.4 H (94-97) % Sodium (137-145) mmol/L Chloride (98-107) mmol/L Carbon Dioxide (22-30) mmol/L BUN (7-17) mg/dL Glucose (74-99) mg/dL POC Glucose (mg/dL) 230 H 211 H (75-99) mg/dL Phosphorus (2.5-4.5) mg/dL Lactate Dehydrogenase (313-618) U/L C-Reactive Protein (<10.0) mg/L Microbiology - Last 24 Hours (Table) 11/06/20 16:16 Gram Stain - Preliminary Sputum Sputum Culture - Preliminary Assessment and Plan Plan: #1. Acute on chronic hypoxemic respiratory failure secondary to acute COVID 19 pneumonitis, status post remdesivir, currently on IV Decadron and she is also on colchicine and Lovenox had to be discontinued because of an upper GI bleeding. The patient was intubated and started on a mechanical ventilator yesterday. We are allowing permissive hypercapnia and the patient is on low tidal volume ventilation. The patient was in a prone body positioning for the past 16 hours and she is going to be turned back supine and his chest x-rays to follow and the blood gases to follow. She is currently on a PEEP of 20 with an FiO2 of 75%. Oxidation is improved in the morning blood gases showed a pO2 of 139. I'm going to repeat the blood gases prior to doing any weaning on an FiO2. Meanwhile inflammatory markers showed an elevated CRP, reduced LDH level, her d-dimer is at 2.46.. Is intubation day #1. #2. History of COPD #3. Elevated transaminases secondary to COVID 19 infection #4. Type 2 diabetes mellitus, currently on Levemir insulin 32 units at bedtime addition to a slight scale coverage, and addition to oral hypoglycemic medication including Januvia and Tradjenta. She is receiving TPN for nutritional support. #5. History of obstructive sleep apnea syndrome #6. Dyslipidemia #7. History of degenerative joint disease #8. History of bipolar disorder #9 upper GI bleed with a fasting is coffee-ground emesis Plan: Continue ventilator support and prone positioning was done for the past 16 hours and the patient will be turned back to supine Continue Decadron for the next few days at a dose of 6 mg IV every 24 hours Continue colchicine Stop Lovenox for now because of a coffee-ground emesis and suspected upper GI bleeding put the patient IV Protonix Monitor inflammatory markers Continue same antibiotic coverage Continue TPN for nutritional support Condition is critical and we'll keep the patient ICU for now. Condition is critical. Intubation process will be done in the ICU and will make further recommendations based on her progress. Critical care evaluation, >30min. Time with Patient: Greater than 30
[2020-11-07 11:25] LABS: Glucose,Whole Blood 196 mg/dL (75-99)
[2020-11-07] MEDS ORDERED: SODIUM CHLORIDE 0.9% 1,000 ML IV ONE (11:35)
[2020-11-07] MEDS: CLEVIDIPINE BUTYRATE 25 MG in EMPTY BAG 1 BAG IV SCH (11:40)
[2020-11-07 12:02] LABS: ABG Base Excess 5.2 mmol/L; ABG HCO3 32 mmol/L (21-25); ABG Oxygen Saturation 99.1 % (94-97); ABG PCO2 64 mmHg (35-45); ABG PO2 131 mmHg (83-108); ABG TCO2 34 mmol/L (19-24)
--- NOTE | 2020-11-07 12:22 | XR ---
EXAMINATION TYPE: XR chest 1V portable DATE OF EXAM: 11/07/2020 Comparison: 11/06/2020 Clinical History: 60-year-old female Tube placement Findings: The patient is obliqued towards the left. Heart upper limits of normal in size. Hyperinflation. A sma ll left effusion may have slightly decreased in the interval. Extensive interstitial density bilatera lly and consolidation throughout the periphery of the right lung and right base. Left PICC tip not we ll seen, probably in the SVC. NG tube courses below the diaphragm. However, the sidehole appears to b e in the distal chest. Overlying catheter limits assessment. Attention on follow-up. PFO closure jenifer ce. ET tube satisfactory. Impression: 1. COPD. Correlate for asymmetric pulmonary edema, right greater than left, versus pneumonia. 2. Attention on follow-up for the patient's NG tube. The sidehole seems to be above the GE junction.
[2020-11-07 12:29] LABS: HCT 36.3 % (34.0-46.0); HGB 11.7 gm/dL (11.4-16.0); MCHC 32.2 g/dL (31.0-37.0); MCV 90.1 fL (80.0-100.0); Mean Platelet Volume 7.1; Platelet Count 270 k/uL (150-450); RBC 4.03 m/uL (3.80-5.40); WBC 13.9 k/uL (3.8-10.6)
[2020-11-07 12:51] LABS: D-Dimer 1.86 mg/L FEU (<0.60); INR 0.9 (<1.2); Partial Thromboplastin Time 22.8 sec (22.0-30.0); Prothrombin Time 10.1 sec (9.0-12.0)
[2020-11-07 15:26] LABS: Glucose,Whole Blood 169 mg/dL (75-99)
[2020-11-07] MEDS: MVI, ADULT NO.4 WITH VIT K 10 ML, TRACE (CONC-1ML/DOSE) 1 ML, PARENTERAL ELECTROLYTES 2... IV SCH ×4 (20:00)
[2020-11-07] MEDS: clonazePAM 0.5 MG TAB PO SCH (20:01)
[2020-11-07] MEDS: ARIPiprazole 10 MG TAB PO SCH (20:16)
[2020-11-07 20:36] LABS: Glucose,Whole Blood 253 mg/dL (75-99)
[2020-11-07] MEDS: INSULIN DETEMIR (LEVEMIR) 100 UNIT/ML SYR SQ SCH (20:38)
[2020-11-07] MEDS: MVI, ADULT NO.4 WITH VIT K 10 ML, TRACE (CONC-1ML/DOSE) 1 ML in AMINO ACID 4.25%-D10W+L... IV SCH ×3 (20:39)
[2020-11-07 20:50] LABS: Glucose,Whole Blood 295 mg/dL (75-99)
--- NOTE | 2020-11-07 20:52 | P.PN ---
Progress Note - Text Progress Note Date: 11/07/20 Chief Complaint: Short of breath History of presenting complaint: This is a 60-year-old patient who follows with Yajaira Barber. Chronic stable medical conditions include diabetes, fibromyalgia, GERD, hypertension, hyperlipidemia, osteoarthritis, obstructive sleep apnea. She is on 3 L of nasal cannula home. Night has been getting it more often lately. Diabetic peripheral neuropathy, obstructive sleep apnea does not use CPAP, chronic kidney disease, arthritis in multiple joints, bipolar schizoaffective disorder. Patient presents of 1 week of increasing shortness of breath. Cough. Slight phlegm. Has had fever for 2 days. Decrease appetite some headaches no loss of taste or smell. No diarrhea. Body aches all over. Patient tested for COVID 19 in the ER. Still somewhat tired rundown. Admitted with bilateral COVID 19 pneumonia, acute hypoxic respiratory failure, acute COPD exacerbation. Patient was started on dexamethasone, Lovenox, Remdesivir, vitamin C vitamin D and zinc. Pulmonary was consulted. Patient has been requiring BiPAP. On October 28 because of increasing oxygen requirement patient is moved to the ICU. Patient was started on IV cefepime and vancomycin. Given convalescent plasma on October 30. PICC line placed-started on TPN and lipids. intubated November 06 Today-ICU: Intubated: On the ventilator. Drips included propofol. Telemetry- sinus rhythm. Sedated Review of systems: Patient intubated Active Medications Acetaminophen (Acetaminophen Tab 325 Mg Tab) 650 mg PO Q6HR PRN PRN Reason: Fever and/ or Pain Last Admin: 11/05/20 00:06 Dose: 650 mg Documented by: Albuterol Sulfate (Albuterol Hfa Inhaler) 4 puff INHALATION Q4H [facility] Last Admin: 11/07/20 19:55 Dose: 4 puff Documented by: Aripiprazole (Aripiprazole 10 Mg Tab) 10 mg PO HS [facility] Last Admin: 11/07/20 20:16 Dose: 10 mg Documented by: Aripiprazole (Aripiprazole 20 Mg Tab) 20 mg PO DAILY [facility] Last Admin: 11/07/20 09:16 Dose: 20 mg Documented by: Artificial Tears (Artificial Tears-Hypromellose Drops 15 Ml Btl) 1 drops BOTH EYES QID PRN PRN Reason: Dry Eye(s) Last Admin: 10/29/20 18:47 Dose: 1 drops Documented by: Ascorbic Acid (Ascorbic Acid 500 Mg Tab) 500 mg PO DAILY [facility] Last Admin: 11/07/20 09:15 Dose: 500 mg Documented by: Atorvastatin Calcium (Atorvastatin 20 Mg Tab) 20 mg PO DAILY [facility] Last Admin: 11/07/20 09:15 Dose: 20 mg Documented by: Budesonide/Formoterol Fumarate (Symbicort 160-4.5 Mcg Inhaler) 2 puff INHALATION RT-BID [facility] Last Admin: 11/07/20 19:55 Dose: 2 puff Documented by: Chlorhexidine Gluconate (Chlorhexidine Gluconate 15 Ml Cup) 15 ml MUCOUS MEM BID [facility] Last Admin: 11/07/20 20:07 Dose: 15 ml Documented by: Cholecalciferol (Cholecalciferol 25 Mcg (1000 Iu) Tablet) 100 mcg PO DAILY [facility] Last Admin: 11/07/20 09:15 Dose: 100 mcg Documented by: Clonazepam (Clonazepam 0.5 Mg Tab) 0.5 mg PO HS [facility] Last Admin: 11/07/20 20:01 Dose: 0.5 mg Documented by: Colchicine (Colchicine 0.6 Mg Each) 0.6 mg PO BID [facility] Last Admin: 11/07/20 20:04 Dose: 0.6 mg Documented by: Dexamethasone Sodium Phosphate (Dexamethasone Sod Phosphate 10 Mg/Ml 1 Ml Vial) 6 mg IV DAILY [facility] Cefepime HCl 2 gm/ Sodium (Chloride) 100 mls @ 25 mls/hr IVPB Q12HR [facility] Last Admin: 11/07/20 20:07 Dose: 25 mls/hr Documented by: Fat Emulsion Intravenous (Lipids 20%) 250 mls @ 20.833 mls/hr IV MoWeFr [facility] Last Admin: 11/06/20 15:31 Dose: Not Given Documented by: Propofol 500 mg/ IV Solution 50 mls @ 0 mls/hr IV .Q0M [facility]; Protocol Last Admin: 11/07/20 20:00 Dose: 45 mcg/kg/min, 22.329 mls/hr Documented by: Clevidipine 25 mg/ IV Solution 50 mls @ 2 mls/hr IV .Q24H [facility]; Protocol Last Admin: 11/07/20 11:40 Dose: Not Given Documented by: Parenteral Vitamin Supplement 10 ml/ Zinc/Copper/Manganese/Selenium 1 ml/ Amino Ac/Electrol/Dextrose/Calcium 1,011 mls @ 40 mls/hr IV .Q24H [facility] Stop: 11/07/20 20:59 Last Admin: 11/07/20 20:39 Dose: Not Given Documented by: Parenteral Vitamin Supplement 10 ml/ Zinc/Copper/Manganese/Selenium 1 ml/ Parenteral Electrolytes 20 ml/ Amino Acids/Dextrose 1,031 mls @ 40 mls/hr IV .Q24H [facility] Last Admin: 11/07/20 20:00 Dose: 40 mls/hr Documented by: Insulin Aspart (Insulin Aspart (Novolog) 100 Unit/Ml Vial) 0 unit SQ Q4H [facility]; Protocol Last Admin: 11/07/20 20:38 Dose: 8 unit Documented by: Insulin Detemir (Insulin Detemir (Levemir) 100 Unit/Ml Syr) 32 unit SQ HS [facility] Last Admin: 11/07/20 20:38 Dose: 32 unit Documented by: Lamotrigine (Lamotrigine 100 Mg Tab) 150 mg PO BID [facility] Last Admin: 11/07/20 20:01 Dose: 150 mg Documented by: Lidocaine (Lidocaine 5% Patch) 1 patch TOPICAL DAILY [facility] Last Admin: 11/07/20 09:13 Dose: 1 patch Documented by: Linagliptin (Linagliptin 5 Mg Tablet) 5 mg PO DAILY [facility] Last Admin: 11/07/20 09:13 Dose: 5 mg Documented by: Losartan Potassium (Losartan 50 Mg Tab) 50 mg PO DAILY [facility] Last Admin: 11/07/20 09:13 Dose: 50 mg Documented by: Meclizine HCl (Meclizine 25 Mg Tab) 25 mg PO Q8H PRN PRN Reason: Nausea And Vomiting Miscellaneous Information (Magnesium Replacement Protocol 1 Each Misc) 1 each MISCELLANE DAILY PRN; Protocol PRN Reason: Per Protocol Miscellaneous Information (Potassium Replacement Protocol 1 Each Misc) 1 each MISCELLANE DAILY PRN; Protocol PRN Reason: Per Protocol Morphine Sulfate (Morphine Sulfate 2 Mg/Ml Syringe) 2 mg IVP Q4H PRN PRN Reason: Pain/Discomfort Last Admin: 11/06/20 08:43 Dose: 2 mg Documented by: Oxcarbazepine (Oxcarbazepine 150 Mg Tab) 150 mg PO BID [facility] Last Admin: 11/07/20 20:04 Dose: 150 mg Documented by: Pantoprazole Sodium (Pantoprazole 40 Mg/10 Ml Vial) 40 mg IVP DAILY [facility] Last Admin: 11/07/20 09:13 Dose: 40 mg Documented by: Pregabalin (Pregabalin 100 Mg Cap) 100 mg PO BID [facility] Last Admin: 11/07/20 20:01 Dose: 100 mg Documented by: Sumatriptan Succinate (Sumatriptan Succinate 50 Mg Tab) 100 mg PO BID PRN PRN Reason: Migraine Headache Topiramate (Topiramate 25 Mg Tab) 50 mg PO BID [facility] Last Admin: 11/07/20 20:04 Dose: 50 mg Documented by: Zinc Sulfate (Zinc Sulfate 220 Mg Cap) 220 mg PO DAILY [facility] Last Admin: 11/07/20 09:14 Dose: 220 mg Documented by: Past medical history to include: COPD, diabetes, fibromyalgia, GERD, hyperlipidemia, hypertension, obstructive sleep apnea does not use CPAP, home oxygen 3 L normal. Night, diabetic peripheral neuropathy, chronic kidney disease, bipolar depression, schizoaffective disorder. Social history: Lives with her daughter. Disabled. Home oxygen. Smoked from 9065 through 2009. In the past used several street drugs but not so since 1989. Physical examination: VITAL SIGNS: 100, 106, 39, 75/65, 70 6/76, 96% on the ventilator GENERAL: Prone position, intubated Physical exam as per pulmonary and nursing INVESTIGATIONS, reviewed in the clinical context: November 07: WBC 13.9 hemoglobin 11.7 platelets 270 ABG-pH 7.3 pCO2 64 pO2 131 MRSA nasal screen-negative. November 04: D-dimer 4.4 CRP 40.1 pro-calcitonin 0.11 October 28: D-dimer 0.78 CRP 169 pro-calcitonin 0.38 Chest x-ray from yesterday-scattered infiltrates Admission labs: White count 7.2 hemoglobin 15.1 decreased lymphocytes d-dimer 0.85 potassium 3.3 creatinine 0.90 glucose 205 EST 106 ALT 103 CRP 37.2 procalcitonin 0.27 Influenza type A, type B both not detected. RSV P/Cr-not detected. Coronavirus [PCR]-detected EKG tracing personally reviewed by me-normal sinus rhythm some slight ST segment changes Chest x-ray film personally reviewed by me-bilateral basilar infiltrates Assessment and plan: -Bilateral COVID 19 pneumonia causing sepsis. Slow to respond. Has received Remdesivir. Convalescent plasma. On colchicine. from dexamethasone to IV Solu-Medrol on October 30.- changed over to dexamethasone 20 mg IV daily-, and Lovenox -Also being covered for secondary bacterial pneumonia infection with IV cefepime, IV vancomycin.. MRSA nasal screen negative. vancomycin discontinued -Acute COPD exacerbation in an [id number] to respond -acute hypoxic respiratory failure, requiring BiPAP-; intubated November 06. Slow to respond on the ventilator -Diabetes mellitus 2, uncontrolled with hyperglycemia from steroids. Levemir to 32 units bedtime -Chronic fibromyalgia -GERD -Essential hypertension, on Cozaar -Hyperlipidemia, on Lipitor -Obstructive sleep apnea does not use CPAP -Diabetic peripheral neuropathy -Primary osteoarthritis of multiple joint -TPN and lipids Prognosis guardeds
[2020-11-07 21:25] LABS: Glucose,Whole Blood 217 mg/dL (75-99)
--- NOTE | 2020-11-07 22:37 | PN ---
PROGRESS NOTE DATE OF SERVICE: 11/07/2020. REASON FOR FOLLOW UP: Pneumonia. INTERVAL HISTORY: Patient is currently afebrile. Patient remains to be intubated on the vent. FiO2 is currently 60%. The patient did have a fever last night of 100.3. No diarrhea or other changes reported by the nursing staff. PHYSICAL EXAMINATION: Blood pressure 117/60 with a pulse of 112. Temperature 98. He is 95% on 50% FiO2. General description: Middle aged female intubated on the vent. Respiratory system: Unlabored breathing with diminished breath sounds per staff. HEART: S1, S2. Regular rate and rhythm. ABDOMEN: Soft. LABS: Hemoglobin 11.1, white count of 13.9. Sputum culture so far negative. DIAGNOSTIC IMPRESSION AND PLAN: Patient with acute respiratory failure which is multifactorial in this patient who did have a Covid-19 pneumonia with concern for pneumonia with worsening respiratory status and requiring intubation. Covered with cefepime to continue while waiting for the sputum culture to finalize. Continue supportive care. MMODL / IJN: [id number] /
[2020-11-07 23:53] LABS: Glucose,Whole Blood 208 mg/dL (75-99)
[2020-11-08] MEDS: ALBUTEROL HFA INHALER INHALATION SCH ×7 (00:59→23:03)
[2020-11-08 03:51] LABS: Glucose,Whole Blood 166 mg/dL (75-99)
[2020-11-08] MEDS: INSULIN ASPART (NovoLOG) 100 UNIT/ML VIAL SQ SCH ×6 (04:01→23:24)
[2020-11-08 04:28] LABS: Basophils % (A) 0 %; Eosinophils % (A) 0 %; HCT 36.7 % (34.0-46.0); HGB 11.4 gm/dL (11.4-16.0); Hypochromasia Slight; Lymphocytes # (A) 0.5 k/uL (1.0-4.8); Lymphocytes % (A) 4 %; MCHC 31.2 g/dL (31.0-37.0); MCV 89.8 fL (80.0-100.0); Mean Platelet Volume 7.4; Monocytes # (A) 0.8 k/uL (0-1.0); Monocytes % (A) 5 %; Neutrophils # (A) 12.9 k/uL (1.3-7.7); Neutrophils % (A) 90 %; Platelet Count 316 k/uL (150-450); RBC 4.08 m/uL (3.80-5.40); WBC 14.4 k/uL (3.8-10.6)
[2020-11-08 04:33] LABS: African American GFR (CKD) >90 (>60 ml/min/1.73 sqM); Anion Gap 2 mmol/L; Blood Urea Nitrogen 31 mg/dL (7-17); C Reactive Protein 83.1 mg/L (<10.0); Calcium 8.4 mg/dL (8.4-10.2); Carbon Dioxide 35 mmol/L (22-30); Chloride 101 mmol/L (98-107); Glucose 175 mg/dL (74-99); LDH 745 U/L (313-618); Magnesium 2.4 mg/dL (1.6-2.3); Non-African American GFR(CKD) >90 (>60 ml/min/1.73 sqM); Phosphorus 3.3 mg/dL (2.5-4.5); Potassium 4.6 mmol/L (3.5-5.1); Sodium 138 mmol/L (137-145)
[2020-11-08] MEDS: MORPHINE SULFATE 2 MG/ML SYRINGE IVP PRN (04:39)
[2020-11-08 05:19] LABS: ABG Base Excess 6.6 mmol/L; ABG HCO3 33 mmol/L (21-25); ABG PCO2 67 mmHg (35-45); ABG PO2 101 mmHg (83-108); ABG TCO2 35 mmol/L (19-24); Allen Test Performed? Yes
[2020-11-08 07:34] LABS: Glucose,Whole Blood 168 mg/dL (75-99)
[2020-11-08] MEDS: CHOLECALCIFEROL 25 MCG (1000 IU) TABLET PO SCH (07:55)
[2020-11-08] MEDS: LOSARTAN 50 MG TAB PO SCH (07:56)
[2020-11-08] MEDS: DEXAMETHASONE SOD PHOSPHATE 10 MG/ML 1 ML VIAL IV SCH (07:56)
[2020-11-08] MEDS: ATORVASTATIN 20 MG TAB PO SCH (07:56)
[2020-11-08] MEDS: PANTOPRAZOLE 40 MG/10 ML VIAL IVP SCH (07:56)
[2020-11-08] MEDS: lamoTRIgine 100 MG TAB PO SCH ×2 (07:56→20:38)
[2020-11-08] MEDS: PREGABALIN 100 MG CAP PO SCH ×2 (07:56→20:36)
[2020-11-08] MEDS: CEFEPIME 2 GM in SODIUM CHLORIDE 0.9% 100 ML IVPB SCH ×2 (07:57→20:37)
[2020-11-08] MEDS: ASCORBIC ACID 500 MG TAB PO SCH (07:57)
[2020-11-08] MEDS: ZINC SULFATE 220 MG CAP PO SCH (07:57)
[2020-11-08] MEDS: COLCHICINE 0.6 MG EACH PO SCH (08:02)
[2020-11-08] MEDS: CHLORHEXIDINE GLUCONATE 15 ML CUP MUCOUS MEM SCH ×2 (08:02→20:34)
[2020-11-08] MEDS: LINAGLIPTIN 5 MG TABLET PO SCH (08:02)
[2020-11-08] MEDS: LIDOCAINE 5% PATCH TOPICAL SCH (08:02)
[2020-11-08] MEDS: OXcarbazepine 150 MG TAB PO SCH ×2 (08:02→20:37)
[2020-11-08] MEDS: TOPIRAMATE 25 MG TAB PO SCH ×2 (08:03→20:36)
[2020-11-08] MEDS: SYMBICORT 160-4.5 MCG INHALER INHALATION SCH ×2 (08:17→19:29)
--- NOTE | 2020-11-08 10:45 | P.PN ---
Subjective Progress Note Date: 11/08/20 Principal diagnosis: Acute on chronic hypoxic respiratory failure secondary to covid 19 pneumonitis. This is a 58-year-old female patient with COVID 19 related pneumonia. The kailey ent has developed progressive worsening and hypoxic respiratory failure secondary to coronavirus/COVID 19 pneumonia. The patient was treated with a combination of treatment including Remdesivir and steroids and the patient was also treated with colchicine. The patient was given anticoagulation with Lovenox. With progressive respiratory failure, the patient was placed on high flow oxygen and subsequently the patient was switched to BiPAP for respiratory support. The patient was initially a DNR/DNI status and somewhat at a later stage she changed her mind and she was consented for short-term intubation mechanical ventilation if needed. She did not want any form of long-term aspiratory support, tracheostomy and feeding tube. The patient currently is on a BiPAP at a pressure of 12/6 cm of water and FiO2 of 100%. Chest x-ray has not shown any significant improvement. For now, the patient is on BiPAP for respiratory support, she is receiving colchicine 0.6 mg by mouth twice a day. She is on Lovenox 40 mg subcu every 12 hours. She is on Levemir insulin 15 units at bedtime in addition to a sliding scale coverage. She is receiving albuterol HFA 4 puffs every 4 hours when necessary and his Symbicort on a 160/4.52 puffs twice a day. The patient is also on IV Solu-Medrol 60 mg every 6 hours. The patient is also on antibiotic coverage with vancomycin. The patient is on BiPAP at a pressure of 12/6 cm of water with an FiO2 of 100%. The chest x-ray shows stable findings. While on the BiPAP, she is able to generate a tidal volume as high as 800. Nevertheless she is quite tachypneic and her minute ventilation is around 18-20 L per minute. Her pulse ox is order of 91%. Even while being given her medication, she seems to be desaturating out of it. Otherwise, she is hemodynamically stable. No chest pain. No altered mentation. No fever. No chills. She was unable to eat and she is currently on TPN for nutritional support. On 11/07/2020, the patient is being seen in follow-up. The patient was intubated yesterday and postintubation she became profoundly hypoxic and based on that, the appropriate ventilator changes were done. I ultimately put the patient on an assist-control mode at the rate of 78 with a tidal volume of 350 and the PEEP was at 20 with an FiO2 of 100%. Subsequently, we were able to wean down the PEEP down to 75%. The most recent blood gases was a 75% FiO2 showed a pH of 7.33 with a pCO2 of 51 and pO2 of 139. She is currently in a prone body positioning. I'm going to liver back to supine today after being thrown for the past 16 hours. No chest x-rays available from today. Meanwhile, the patient has a peak airway pressure that around 33 while she is been in a prone body position. On today's evaluation, she is sedated with propofol which is currently running at 45 micrograms per KG per minute. She is still on TPN for nutritional support. She is hemodynamically stable on no pressors. IV fluids are all. She has a PICC line and she also has an arterial line. On today's blood work, his CRP level is up to 179, pro calcitonin from yesterday was 0.1, her LDH level is at 782, there was a causative 12.6 with a hemoglobin of 12.6. Platelet count is at 96. Renal function stable with a creatinine of 0.1. The net fluid balance over the past 24 hours is been negative to 45 mL. The patient remains on Decadron 20 mg IV, colchicine 0.6 mg by mouth twice a day, she is also on zinc sulfate and multivitamins. Antibiotic coverage is with IV cefepime. Lovenox Discontinued yesterday as the patient developed coffee-ground emesis and this was also noted in her OG. Based on that, no enteral feeding has been done and the patient is still on TPN for nutritional support. Patient was reevaluated today on 11/08/2020, patient remains in the ICU, intubated and mechanically ventilated. She is presently on assist control mode of mechanical ventilation, tidal volume is 350 rate of 28 FiO2 60% PEEP was 18 and I cut it down to 16. ABG showed a pO2 of 106 pCO2 of 67 pH of 7.30. Patient is now in prone position. She remains on propofol at 45 mcg/kg/m, she is also on TPN. She is not requiring any pressors. Chest x-ray showed significant interstitial edema involving the right lung, more so than the left lung. CBC showed WBC count of 14.4, hemoglobin is 11.4 d-dimer is 1.90, electrolytes and renal profile are normal LDH is 745 C-reactive protein 83.1 blood sugar is 168. Patient is on TPN. Continues to have some coffee-ground material in the orogastric tube. Patient has been intermittently in prone position for about 16 hours. And this morning she was still in prone position from earlier today. After reviewing the ABG, I recommended cutting down the PEEP from 18-16 and kept her on 60% FiO2. Patient remains on Decadron, colchicine, she is also on zinc and multivitamins. Remains on cefepime, Lovenox is presently on hold. Objective - Vital Signs Vital signs: Vital Signs Temp 100.2 F H 11/08/20 08:00 Pulse 100 11/08/20 10:00 Resp 28 H 11/08/20 10:00 BP 98/55 11/07/20 22:00 Pulse Ox 96 11/08/20 10:00 Intake & Output 11/07/20 11/08/20 11/08/20 18:59 06:59 18:59 Intake Total 8990.848 1237.744 349 Output Total 450 765 210 Balance 654.652 381.744 139 Weight 82.7 kg 84.7 kg Intake: IV 843 916 289 .9 NS pressure bag 33 36 9 0.9NS 220 300 60 Cefepime 2 gm In Sodium 100 100 100 Chloride 0.9% 100 ml @ 25 mls/hr IVPB Q12HR [facility] Rx #:[id number] Dexamethasone Sod 50 Phosphate 20 mg In Dextrose 5% in Water 50 ml @ 100 mls/hr IV DAILY [facility] Rx#:[id number] TPN 440 480 120 Intake, IV Titration 161.652 200.744 Amount propofoL 500 mg In Empty 161.652 200.744 Bag 1 bag @ Titrate IV . Q0M [facility] Rx#:[id number] Oral 100 60 Other 30 Output: Gastric Drainage 100 Urine 450 665 210 Other: Voiding Method Indwelling Catheter Indwelling Catheter Indwelling Catheter # Bowel Movements 1 1 ABP, PAP, CO, CI - Last Documented Arterial Blood Pressure 112/56 - Exam Physical Exam: Revealed a 60-year-old female in prone position, on mechanical ventilation, sedated, in no distress. Head: Atraumatic, normocephalic. HEENT:[Neck is supple.] [No neck masses.] [No thyromegaly.] [No JVD.] brandon,eomi, orogastric tube and endotracheal tube are intact. No neck masses, no JVD. Chest: [Symmetrical chest expansion, crackles and rhonchi noted bilaterally..] Cardiac Exam: [Normal S1 and S2, no S3 gallop, no murmur.] Abdomen: [Obese, Soft, nontender, no megaly, no rebound, no guarding, normal bowel sounds.] Extremities: [No clubbing, no edema, no cyanosis.] Skin: No rashes. Neurological Exam: Could not assess, patient is intubated, and sedated on propofol. Not requiring any fentanyl or Nimbex at this point yet. Psychiatric: Could not be assessed - Labs CBC & Chem 7: 11/08/20 04:00 11/08/20 04:00 Labs: Abnormal Lab Results - Last 24 Hours (Table) 11/07/20 11/07/20 11/07/20 Range/Units 11:23 11:59 12:26 WBC 13.9 H (3.8-10.6) k/uL Neutrophils # (1.3-7.7) k/uL Lymphocytes # (1.0-4.8) k/uL D-Dimer (<0.60) mg/L FEU ABG pH 7.30 L (7.35-7.45) ABG pCO2 64 H (35-45) mmHg ABG pO2 131 H (83-108) mmHg ABG HCO3 32 H (21-25) mmol/L ABG Total CO2 34 H (19-24) mmol/L ABG O2 Saturation 99.1 H (94-97) % Carbon Dioxide (22-30) mmol/L BUN (7-17) mg/dL Glucose (74-99) mg/dL POC Glucose (mg/dL) 196 H (75-99) mg/dL Magnesium (1.6-2.3) mg/dL Lactate Dehydrogenase (313-618) U/L C-Reactive Protein (<10.0) mg/L 11/07/20 11/07/20 11/07/20 Range/Units 12:26 15:24 20:35 WBC (3.8-10.6) k/uL Neutrophils # (1.3-7.7) k/uL Lymphocytes # (1.0-4.8) k/uL D-Dimer 1.86 H (<0.60) mg/L FEU ABG pH (7.35-7.45) ABG pCO2 (35-45) mmHg ABG pO2 (83-108) mmHg ABG HCO3 (21-25) mmol/L ABG Total CO2 (19-24) mmol/L ABG O2 Saturation (94-97) % Carbon Dioxide (22-30) mmol/L BUN (7-17) mg/dL Glucose (74-99) mg/dL POC Glucose (mg/dL) 169 H 253 H (75-99) mg/dL Magnesium (1.6-2.3) mg/dL Lactate Dehydrogenase (313-618) U/L C-Reactive Protein (<10.0) mg/L 11/07/20 11/07/20 11/07/20 Range/Units 20:50 21:24 23:51 WBC (3.8-10.6) k/uL Neutrophils # (1.3-7.7) k/uL Lymphocytes # (1.0-4.8) k/uL D-Dimer (<0.60) mg/L FEU ABG pH (7.35-7.45) ABG pCO2 (35-45) mmHg ABG pO2 (83-108) mmHg ABG HCO3 (21-25) mmol/L ABG Total CO2 (19-24) mmol/L ABG O2 Saturation (94-97) % Carbon Dioxide (22-30) mmol/L BUN (7-17) mg/dL Glucose (74-99) mg/dL POC Glucose (mg/dL) 295 H 217 H 208 H (75-99) mg/dL Magnesium (1.6-2.3) mg/dL Lactate Dehydrogenase (313-618) U/L C-Reactive Protein (<10.0) mg/L 11/08/20 11/08/20 11/08/20 Range/Units 03:50 04:00 04:00 WBC 14.4 H (3.8-10.6) k/uL Neutrophils # 12.9 H (1.3-7.7) k/uL Lymphocytes # 0.5 L (1.0-4.8) k/uL D-Dimer (<0.60) mg/L FEU ABG pH (7.35-7.45) ABG pCO2 (35-45) mmHg ABG pO2 (83-108) mmHg ABG HCO3 (21-25) mmol/L ABG Total CO2 (19-24) mmol/L ABG O2 Saturation (94-97) % Carbon Dioxide 35 H (22-30) mmol/L BUN 31 H (7-17) mg/dL Glucose 175 H (74-99) mg/dL POC Glucose (mg/dL) 166 H (75-99) mg/dL Magnesium 2.4 H (1.6-2.3) mg/dL Lactate Dehydrogenase 745 H (313-618) U/L C-Reactive Protein 83.1 H (<10.0) mg/L 11/08/20 11/08/20 11/08/20 Range/Units 04:00 05:15 07:32 WBC (3.8-10.6) k/uL Neutrophils # (1.3-7.7) k/uL Lymphocytes # (1.0-4.8) k/uL D-Dimer 1.90 H (<0.60) mg/L FEU ABG pH 7.30 L (7.35-7.45) ABG pCO2 67 H (35-45) mmHg ABG pO2 (83-108) mmHg ABG HCO3 33 H (21-25) mmol/L ABG Total CO2 35 H (19-24) mmol/L ABG O2 Saturation 98.0 H (94-97) % Carbon Dioxide (22-30) mmol/L BUN (7-17) mg/dL Glucose (74-99) mg/dL POC Glucose (mg/dL) 168 H (75-99) mg/dL Magnesium (1.6-2.3) mg/dL Lactate Dehydrogenase (313-618) U/L C-Reactive Protein (<10.0) mg/L Microbiology - Last 24 Hours (Table) 11/06/20 16:16 Gram Stain - Final Sputum Sputum Culture - Final Assessment and Plan Assessment: Impression: Acute on chronic hypoxic respiratory failure secondary to acute covid 19 pneumonitis. Patient has received them to severe, remains on IV Decadron, rem ains on colchicine, Lovenox is presently on hold. Mostly because of GI bleeding. Patient remains intubated and mechanically ventilated. Still requiring significantly high FiO2 of 60% and high PEEP of 16. History of severe COPD. Elevated transaminases secondary to Covid 19 infection Type 2 diabetes. History of dyslipidemia. Obstructive sleep apnea syndrome. History of bipolar disorder. Acute upper GI bleeding with coffee-ground emesis, most likely secondary to erosive gastritis. Recommendation: Continue ventilatory support. Continue nutritional support. Continue intermittent prone positions. Cut down colchicine to 0.6 mg daily. Stop Lovenox. Continue to monitor inflammatory markers. Continue present antibiotics coverage. Continue GI and DVT prophylaxis. Continue intermittent prone positions. Patient remains extremely ill and prognosis is extremely poor and guarded. We'll discuss CODE STATUS again with the family in the next 24 hours. Critical care time is over 30 minutes. Time with Patient: Greater than 30
[2020-11-08] MEDS: CLEVIDIPINE BUTYRATE 25 MG in EMPTY BAG 1 BAG IV SCH (11:12)
[2020-11-08 13:02] LABS: Glucose,Whole Blood 242 mg/dL (75-99)
[2020-11-08 15:23] LABS: Glucose,Whole Blood 240 mg/dL (75-99)
--- NOTE | 2020-11-08 15:23 | XR ---
EXAMINATION TYPE: XR chest 1V portable DATE OF EXAM: 11/08/2020 COMPARISON: 11/07/2020. HISTORY: 2 placement. TECHNIQUE: Single frontal view of the chest is obtained. FINDINGS: Stable line and tubes. Again NG tube side-port is seen at the level of the GE junction. Th ere is unchanged bilateral interstitial opacities, diffuse on the right and mild on the left. No sign ificant pleural effusion, or pneumothorax seen. The cardiac silhouette size is within normal limits. The osseous structures are intact. IMPRESSION: No significant interval change.
--- NOTE | 2020-11-08 20:17 | P.PN ---
Progress Note - Text Progress Note Date: 11/08/20 Chief Complaint: Short of breath History of presenting complaint: This is a 60-year-old patient who follows with Yajaira Barber. Chronic stable medical conditions include diabetes, fibromyalgia, GERD, hypertension, hyperlipidemia, osteoarthritis, obstructive sleep apnea. She is on 3 L of nasal cannula home. Night has been getting it more often lately. Diabetic peripheral neuropathy, obstructive sleep apnea does not use CPAP, chronic kidney disease, arthritis in multiple joints, bipolar schizoaffective disorder. Patient presents of 1 week of increasing shortness of breath. Cough. Slight phlegm. Has had fever for 2 days. Decrease appetite some headaches no loss of taste or smell. No diarrhea. Body aches all over. Patient tested for COVID 19 in the ER. Still somewhat tired rundown. Admitted with bilateral COVID 19 pneumonia, acute hypoxic respiratory failure, acute COPD exacerbation. Patient was started on dexamethasone, Lovenox, Remdesivir, vitamin C vitamin D and zinc. Pulmonary was consulted. Patient has been requiring BiPAP. On October 28 because of increasing oxygen requirement patient is moved to the ICU. Patient was started on IV cefepime and vancomycin. Given convalescent plasma on October 30. PICC line placed-started on TPN and lipids. intubated November 06 Today-ICU: On the ventilator: FiO2 -60, PEEP of 16. Drips include propofol, TPN. Telemetry-sinus rhythm. Review of systems: Patient intubated Active Medications Acetaminophen (Acetaminophen Tab 325 Mg Tab) 650 mg PO Q6HR PRN PRN Reason: Fever and/ or Pain Last Admin: 11/05/20 00:06 Dose: 650 mg Documented by: Albuterol Sulfate (Albuterol Hfa Inhaler) 4 puff INHALATION Q4H [facility] Last Admin: 11/08/20 19:28 Dose: 4 puff Documented by: Aripiprazole (Aripiprazole 10 Mg Tab) 10 mg PO HS [facility] Last Admin: 11/07/20 20:16 Dose: 10 mg Documented by: Aripiprazole (Aripiprazole 20 Mg Tab) 20 mg PO DAILY [facility] Last Admin: 11/08/20 08:02 Dose: 20 mg Documented by: Artificial Tears (Artificial Tears-Hypromellose Drops 15 Ml Btl) 1 drops BOTH EYES QID PRN PRN Reason: Dry Eye(s) Last Admin: 10/29/20 18:47 Dose: 1 drops Documented by: Ascorbic Acid (Ascorbic Acid 500 Mg Tab) 500 mg PO DAILY [facility] Last Admin: 11/08/20 07:57 Dose: 500 mg Documented by: Atorvastatin Calcium (Atorvastatin 20 Mg Tab) 20 mg PO DAILY [facility] Last Admin: 11/08/20 07:56 Dose: 20 mg Documented by: Budesonide/Formoterol Fumarate (Symbicort 160-4.5 Mcg Inhaler) 2 puff INHALATION RT-BID [facility] Last Admin: 11/08/20 19:29 Dose: 2 puff Documented by: Chlorhexidine Gluconate (Chlorhexidine Gluconate 15 Ml Cup) 15 ml MUCOUS MEM BID [facility] Last Admin: 11/08/20 08:02 Dose: 15 ml Documented by: Cholecalciferol (Cholecalciferol 25 Mcg (1000 Iu) Tablet) 100 mcg PO DAILY [facility] Last Admin: 11/08/20 07:55 Dose: 100 mcg Documented by: Clonazepam (Clonazepam 0.5 Mg Tab) 0.5 mg PO HS [facility] Last Admin: 11/07/20 20:01 Dose: 0.5 mg Documented by: Colchicine (Colchicine 0.6 Mg Each) 0.6 mg PO DAILY [facility] Dexamethasone Sodium Phosphate (Dexamethasone Sod Phosphate 10 Mg/Ml 1 Ml Vial) 6 mg IV DAILY [facility] Last Admin: 11/08/20 07:56 Dose: 6 mg Documented by: Cefepime HCl 2 gm/ Sodium (Chloride) 100 mls @ 25 mls/hr IVPB Q12HR [facility] Last Admin: 11/08/20 07:57 Dose: 25 mls/hr Documented by: Fat Emulsion Intravenous (Lipids 20%) 250 mls @ 20.833 mls/hr IV MoWeFr [facility] Last Admin: 11/06/20 15:31 Dose: Not Given Documented by: Propofol 500 mg/ IV Solution 50 mls @ 0 mls/hr IV .Q0M [facility]; Protocol Last Admin: 11/08/20 20:14 Dose: 45 mcg/kg/min, 22.869 mls/hr Documented by: Clevidipine 25 mg/ IV Solution 50 mls @ 2 mls/hr IV .Q24H [facility]; Protocol Last Admin: 11/08/20 11:12 Dose: Not Given Documented by: Parenteral Vitamin Supplement 10 ml/ Zinc/Copper/Manganese/Selenium 1 ml/ Parenteral Electrolytes 20 ml/ Amino Acids/Dextrose 1,031 mls @ 40 mls/hr IV .Q24H [facility] Last Admin: 11/07/20 20:00 Dose: 40 mls/hr Documented by: Insulin Aspart (Insulin Aspart (Novolog) 100 Unit/Ml Vial) 0 unit SQ Q4H [facility]; Protocol Last Admin: 11/08/20 17:09 Dose: 8 unit Documented by: Insulin Detemir (Insulin Detemir (Levemir) 100 Unit/Ml Syr) 32 unit SQ HS [facility] Last Admin: 11/07/20 20:38 Dose: 32 unit Documented by: Lamotrigine (Lamotrigine 100 Mg Tab) 150 mg PO BID [facility] Last Admin: 11/08/20 07:56 Dose: 150 mg Documented by: Lidocaine (Lidocaine 5% Patch) 1 patch TOPICAL DAILY [facility] Last Admin: 11/08/20 08:02 Dose: 1 patch Documented by: Linagliptin (Linagliptin 5 Mg Tablet) 5 mg PO DAILY [facility] Last Admin: 11/08/20 08:02 Dose: 5 mg Documented by: Losartan Potassium (Losartan 50 Mg Tab) 50 mg PO DAILY [facility] Last Admin: 11/08/20 07:56 Dose: 50 mg Documented by: Meclizine HCl (Meclizine 25 Mg Tab) 25 mg PO Q8H PRN PRN Reason: Nausea And Vomiting Miscellaneous Information (Magnesium Replacement Protocol 1 Each Misc) 1 each MISCELLANE DAILY PRN; Protocol PRN Reason: Per Protocol Miscellaneous Information (Potassium Replacement Protocol 1 Each Misc) 1 each MISCELLANE DAILY PRN; Protocol PRN Reason: Per Protocol Morphine Sulfate (Morphine Sulfate 2 Mg/Ml Syringe) 2 mg IVP Q4H PRN PRN Reason: Pain/Discomfort Last Admin: 11/08/20 04:39 Dose: 2 mg Documented by: Oxcarbazepine (Oxcarbazepine 150 Mg Tab) 150 mg PO BID [facility] Last Admin: 11/08/20 08:02 Dose: 150 mg Documented by: Pantoprazole Sodium (Pantoprazole 40 Mg/10 Ml Vial) 40 mg IVP DAILY [facility] Last Admin: 11/08/20 07:56 Dose: 40 mg Documented by: Pregabalin (Pregabalin 100 Mg Cap) 100 mg PO BID [facility] Last Admin: 11/08/20 07:56 Dose: 100 mg Documented by: Sumatriptan Succinate (Sumatriptan Succinate 50 Mg Tab) 100 mg PO BID PRN PRN Reason: Migraine Headache Topiramate (Topiramate 25 Mg Tab) 50 mg PO BID [facility] Last Admin: 11/08/20 08:03 Dose: 50 mg Documented by: Zinc Sulfate (Zinc Sulfate 220 Mg Cap) 220 mg PO DAILY [facility] Last Admin: 11/08/20 07:57 Dose: 220 mg Documented by: Past medical history to include: COPD, diabetes, fibromyalgia, GERD, hyperlipidemia, hypertension, obstructive sleep apnea does not use CPAP, home oxygen 3 L normal. Night, diabetic peripheral neuropathy, chronic kidney disease, bipolar depression, schizoaffective disorder. Social history: Lives with her daughter. Disabled. Home oxygen. Smoked from 9065 through 2009. In the past used several street drugs but not so since 1989. Physical examination: VITAL SIGNS: 100, 101, 29, 116/58, 96% on the ventilator GENERAL: Laying in bed, intubated Physical exam as per pulmonary and nursing INVESTIGATIONS, reviewed in the clinical context: November 08: WBC 40.4 hemoglobin 11.4 d-dimer 1.9 potassium 4.6 creatinine 0.71 CRP 83 November 07: WBC 13.9 hemoglobin 11.7 platelets 270 ABG-pH 7.3 pCO2 64 pO2 131 MRSA nasal screen-negative. November 04: D-dimer 4.4 CRP 40.1 pro-calcitonin 0.11 October 28: D-dimer 0.78 CRP 169 pro-calcitonin 0.38 Chest x-ray from yesterday-scattered infiltrates Admission labs: White count 7.2 hemoglobin 15.1 decreased lymphocytes d-dimer 0.85 potassium 3.3 creatinine 0.90 glucose 205 EST 106 ALT 103 CRP 37.2 procalcitonin 0.27 Influenza type A, type B both not detected. RSV P/Cr-not detected. Coronavirus [PCR]-detected EKG tracing personally reviewed by me-normal sinus rhythm some slight ST segment changes Chest x-ray film personally reviewed by me-bilateral basilar infiltrates Assessment and plan: -Bilateral COVID 19 pneumonia causing sepsis. Slow to respond. Has received Remdesivir. Convalescent plasma. On colchicine. from dexamethasone to IV Solu-Medrol on October 30.- changed over to dexamethasone 20 mg IV daily-being changed over to Decadron, and Lovenox -Also being covered for secondary bacterial pneumonia infection with IV cefepime, IV vancomycin.. MRSA nasal screen negative. vancomycin discontinued -Acute COPD exacerbation in an [id number] to respond -acute hypoxic respiratory failure, requiring BiPAP-; intubated November 06. Slow to respond on the ventilator -Diabetes mellitus 2, uncontrolled with hyperglycemia from steroids. Increase Levemir to 36 units -Chronic fibromyalgia -GERD -Essential hypertension, on Cozaar -Hyperlipidemia, on Lipitor -Obstructive sleep apnea does not use CPAP -Diabetic peripheral neuropathy -Primary osteoarthritis of multiple joint -TPN and lipids Prognosis guarded
[2020-11-08] MEDS: clonazePAM 0.5 MG TAB PO SCH (20:35)
[2020-11-08] MEDS: ARIPiprazole 10 MG TAB PO SCH (20:36)
[2020-11-08 20:52] LABS: Glucose,Whole Blood 175 mg/dL (75-99)
[2020-11-08] MEDS: MVI, ADULT NO.4 WITH VIT K 10 ML, TRACE (CONC-1ML/DOSE) 1 ML, PARENTERAL ELECTROLYTES 2... IV SCH ×4 (20:57)
[2020-11-08] MEDS: INSULIN DETEMIR (LEVEMIR) 100 UNIT/ML SYR SQ SCH (21:06)
--- NOTE | 2020-11-08 21:16 | PN ---
PROGRESS NOTE DATE OF SERVICE: 11/08/2020 REASON FOR FOLLOWUP: Pneumonia. INTERVAL HISTORY: The patient has been running a low-grade fever with a T-max of 100.8 Fahrenheit. The patient is hemodynamically stable, not on any pressor support. FiO2 is currently 60%. No significant purulent secretions through the ET or any diarrhea reported by the nursing staff. PHYSICAL EXAMINATION: Blood pressure 118/60 with a pulse of 108. Temperature of 99, T-max 100.3. She is 96% on 60% FiO2. General description is a middle-aged female lying in bed in no distress. Respiratory system: Unlabored breathing with decreased breath sounds at the bases. No wheeze. HEART: S1, S2. Regular rate and rhythm. ABDOMEN: Soft. LABS: Hemoglobin 11.4, white count 14.4, BUN of 21, creatinine 0.71. Sputum has been . Those are negative so far. DIAGNOSTIC IMPRESSION AND PLAN: Patient admitted with acute respiratory failure which is multifactorial in this patient who had Covid 19 pneumonia now with worsening respiratory failure, elevated procalcitonin, concern for possible bacterial component. Sputum has been negative for resistant pathogen. She is covered with cefepime to continue in view of the fever. Blood cultures will be checked and clinical course monitored closely. MMODL / IJN: [id number] /
[2020-11-08 23:23] LABS: Glucose,Whole Blood 135 mg/dL (75-99)
[2020-11-09] MEDS: ALBUTEROL HFA INHALER INHALATION SCH ×6 (03:07→23:01)
[2020-11-09 04:47] LABS: Glucose,Whole Blood 175 mg/dL (75-99)
[2020-11-09] MEDS: INSULIN ASPART (NovoLOG) 100 UNIT/ML VIAL SQ SCH ×5 (04:58→21:16)
[2020-11-09 05:05] LABS: Basophils % (A) 0 %; Eosinophils # (A) 0.2 k/uL (0-0.7); Eosinophils % (A) 1 %; HCT 33.4 % (34.0-46.0); HGB 10.3 gm/dL (11.4-16.0); Hypochromasia Slight; Lymphocytes # (A) 0.8 k/uL (1.0-4.8); Lymphocytes % (A) 6 %; MCH 28.4 pg (25.0-35.0); MCHC 30.9 g/dL (31.0-37.0); MCV 91.8 fL (80.0-100.0); Mean Platelet Volume 7.9; Monocytes # (A) 0.7 k/uL (0-1.0); Monocytes % (A) 6 %; Neutrophils # (A) 10.8 k/uL (1.3-7.7); Neutrophils % (A) 86 %; Platelet Count 268 k/uL (150-450); RBC 3.64 m/uL (3.80-5.40); RDW 15.2 % (11.5-15.5); WBC 12.6 k/uL (3.8-10.6)
[2020-11-09 05:17] LABS: African American GFR (CKD) >90 (>60 ml/min/1.73 sqM); Anion Gap 1 mmol/L; Blood Urea Nitrogen 33 mg/dL (7-17); C Reactive Protein 36.3 mg/L (<10.0); Calcium 8.5 mg/dL (8.4-10.2); Carbon Dioxide 35 mmol/L (22-30); Chloride 102 mmol/L (98-107); Glucose 179 mg/dL (74-99); LDH 593 U/L (313-618); Magnesium 2.2 mg/dL (1.6-2.3); Non-African American GFR(CKD) >90 (>60 ml/min/1.73 sqM); Phosphorus 2.8 mg/dL (2.5-4.5); Potassium 4.6 mmol/L (3.5-5.1); Sodium 138 mmol/L (137-145)
[2020-11-09 05:26] LABS: ABG Base Excess 7.2 mmol/L; ABG HCO3 34 mmol/L (21-25); ABG PCO2 67 mmHg (35-45); ABG PH 7.31 (7.35-7.45); ABG PO2 114 mmHg (83-108); ABG TCO2 36 mmol/L (19-24); Allen Test Performed? Yes
[2020-11-09] MEDS: SYMBICORT 160-4.5 MCG INHALER INHALATION SCH ×2 (08:29→20:07)
[2020-11-09] MEDS: CEFEPIME 2 GM in SODIUM CHLORIDE 0.9% 100 ML IVPB SCH ×2 (08:57→21:18)
[2020-11-09] MEDS: ASCORBIC ACID 500 MG TAB PO SCH (08:57)
[2020-11-09] MEDS: CHOLECALCIFEROL 25 MCG (1000 IU) TABLET PO SCH (08:57)
[2020-11-09] MEDS: CHLORHEXIDINE GLUCONATE 15 ML CUP MUCOUS MEM SCH ×2 (08:57→21:16)
[2020-11-09] MEDS: ATORVASTATIN 20 MG TAB PO SCH (08:57)
[2020-11-09] MEDS: LIDOCAINE 5% PATCH TOPICAL SCH (08:58)
[2020-11-09] MEDS: COLCHICINE 0.6 MG EACH PO SCH (08:58)
[2020-11-09] MEDS: DEXAMETHASONE SOD PHOSPHATE 10 MG/ML 1 ML VIAL IV SCH (08:58)
[2020-11-09] MEDS: lamoTRIgine 100 MG TAB PO SCH ×2 (08:58→21:17)
[2020-11-09] MEDS: LINAGLIPTIN 5 MG TABLET PO SCH (08:59)
[2020-11-09] MEDS: PREGABALIN 100 MG CAP PO SCH ×2 (08:59→21:18)
[2020-11-09] MEDS: TOPIRAMATE 25 MG TAB PO SCH ×2 (08:59→21:21)
[2020-11-09] MEDS: OXcarbazepine 150 MG TAB PO SCH ×2 (08:59→21:19)
[2020-11-09] MEDS: PANTOPRAZOLE 40 MG/10 ML VIAL IVP SCH (08:59)
[2020-11-09] MEDS: LOSARTAN 50 MG TAB PO SCH (08:59)
[2020-11-09] MEDS: ZINC SULFATE 220 MG CAP PO SCH (09:00)
[2020-11-09 09:54] LABS: Glucose,Whole Blood 184 mg/dL (75-99)
[2020-11-09 11:47] LABS: Glucose,Whole Blood 179 mg/dL (75-99)
--- NOTE | 2020-11-09 13:07 | PN ---
PROGRESS NOTE DATE OF SERVICE: 11/09/2019 REASON FOR FOLLOWUP: Pneumonia. INTERVAL HISTORY: The patient is currently running a low-grade fever of 99.7. The patient is hemodynamically stable, currently not on any pressor support. The patient's FiO2 is down to 55% with a PEEP of 14. No significant purulent secretions through the ET or any diarrhea reported by nursing staff. PHYSICAL EXAMINATION: Blood pressure is 127/54 with a pulse of 96, temperature 99.7. She is 97% on 55% FiO2. General description is a middle-aged female lying in bed in no distress. RESPIRATORY SYSTEM: Unlabored breathing with diminished breath sounds. No wheeze. HEART: ABDOMEN: Soft. EXTREMITIES: No edema of feet. LABS: Hemoglobin is 10.3, white count 12.6. BUN of 33, creatinine 0.70. Sputum culture repeat has been negative. DIAGNOSTIC IMPRESSION AND PLAN: Patient with acute respiratory failure, multifactorial in this patient who did have COVID-19 infection, subsequently did have worsening of respiratory status and with concern for possible bacterial pneumonia. The patient is currently covered with cefepime. Culture has been negative for resistant pathogen. Prognosis remains to be guarded. MMODL / IJN: [id number] /
--- NOTE | 2020-11-09 14:00 | P.PN ---
Subjective Progress Note Date: 11/09/20 Principal diagnosis: Acute on chronic hypoxic respiratory failure secondary to covid 19 pneumonitis. This is a 58-year-old female patient with COVID 19 related pneumonia. The kailey ent has developed progressive worsening and hypoxic respiratory failure secondary to coronavirus/COVID 19 pneumonia. The patient was treated with a combination of treatment including Remdesivir and steroids and the patient was also treated with colchicine. The patient was given anticoagulation with Lovenox. With progressive respiratory failure, the patient was placed on high flow oxygen and subsequently the patient was switched to BiPAP for respiratory support. The patient was initially a DNR/DNI status and somewhat at a later stage she changed her mind and she was consented for short-term intubation mechanical ventilation if needed. She did not want any form of long-term aspiratory support, tracheostomy and feeding tube. The patient currently is on a BiPAP at a pressure of 12/6 cm of water and FiO2 of 100%. Chest x-ray has not shown any significant improvement. For now, the patient is on BiPAP for respiratory support, she is receiving colchicine 0.6 mg by mouth twice a day. She is on Lovenox 40 mg subcu every 12 hours. She is on Levemir insulin 15 units at bedtime in addition to a sliding scale coverage. She is receiving albuterol HFA 4 puffs every 4 hours when necessary and his Symbicort on a 160/4.52 puffs twice a day. The patient is also on IV Solu-Medrol 60 mg every 6 hours. The patient is also on antibiotic coverage with vancomycin. The patient is on BiPAP at a pressure of 12/6 cm of water with an FiO2 of 100%. The chest x-ray shows stable findings. While on the BiPAP, she is able to generate a tidal volume as high as 800. Nevertheless she is quite tachypneic and her minute ventilation is around 18-20 L per minute. Her pulse ox is order of 91%. Even while being given her medication, she seems to be desaturating out of it. Otherwise, she is hemodynamically stable. No chest pain. No altered mentation. No fever. No chills. She was unable to eat and she is currently on TPN for nutritional support. On 11/07/2020, the patient is being seen in follow-up. The patient was intubated yesterday and postintubation she became profoundly hypoxic and based on that, the appropriate ventilator changes were done. I ultimately put the patient on an assist-control mode at the rate of 78 with a tidal volume of 350 and the PEEP was at 20 with an FiO2 of 100%. Subsequently, we were able to wean down the PEEP down to 75%. The most recent blood gases was a 75% FiO2 showed a pH of 7.33 with a pCO2 of 51 and pO2 of 139. She is currently in a prone body positioning. I'm going to liver back to supine today after being thrown for the past 16 hours. No chest x-rays available from today. Meanwhile, the patient has a peak airway pressure that around 33 while she is been in a prone body position. On today's evaluation, she is sedated with propofol which is currently running at 45 micrograms per KG per minute. She is still on TPN for nutritional support. She is hemodynamically stable on no pressors. IV fluids are all. She has a PICC line and she also has an arterial line. On today's blood work, his CRP level is up to 179, pro calcitonin from yesterday was 0.1, her LDH level is at 782, there was a causative 12.6 with a hemoglobin of 12.6. Platelet count is at 96. Renal function stable with a creatinine of 0.1. The net fluid balance over the past 24 hours is been negative to 45 mL. The patient remains on Decadron 20 mg IV, colchicine 0.6 mg by mouth twice a day, she is also on zinc sulfate and multivitamins. Antibiotic coverage is with IV cefepime. Lovenox Discontinued yesterday as the patient developed coffee-ground emesis and this was also noted in her OG. Based on that, no enteral feeding has been done and the patient is still on TPN for nutritional support. Patient was reevaluated today on 11/08/2020, patient remains in the ICU, intubated and mechanically ventilated. She is presently on assist control mode of mechanical ventilation, tidal volume is 350 rate of 28 FiO2 60% PEEP was 18 and I cut it down to 16. ABG showed a pO2 of 106 pCO2 of 67 pH of 7.30. Patient is now in prone position. She remains on propofol at 45 mcg/kg/m, she is also on TPN. She is not requiring any pressors. Chest x-ray showed significant interstitial edema involving the right lung, more so than the left lung. CBC showed WBC count of 14.4, hemoglobin is 11.4 d-dimer is 1.90, electrolytes and renal profile are normal LDH is 745 C-reactive protein 83.1 blood sugar is 168. Patient is on TPN. Continues to have some coffee-ground material in the orogastric tube. Patient has been intermittently in prone position for about 16 hours. And this morning she was still in prone position from earlier today. After reviewing the ABG, I recommended cutting down the PEEP from 18-16 and kept her on 60% FiO2. Patient remains on Decadron, colchicine, she is also on zinc and multivitamins. Remains on cefepime, Lovenox is presently on hold. Reevaluated today on 11/09/2020, patient remains in the ICU, intubated and mechanically ventilated. She is back in a prone position this morning. Her ventilator settings are assist control rate of 28 tidal volume 350 FiO2 is 60% PEEP is 16 after reviewing her ABG, I cut down her PEEP down to 14 and her FiO2 is down to 55%. ABG showed a pO2 of 114 pCO2 of 67 pH of 7.31. Patient remains on propofol at 45 mcg/kg/m, she is also on TPN which is presently on hold and the patient is receiving enteral feeding. Patient was intubated on 11/06/2020, and she has been intermittently late in prone positioning. Chest x-ray continues to show bilateral infiltrates, right more so than left. CBC is relatively normal. Basic metabolic profile is normal. Renal profile is normal. C-reactive protein is 36 and her LDH is 593, both are trending down Objective - Vital Signs Vital signs: Vital Signs Temp 99.7 F H 11/09/20 08:00 Pulse 108 H 11/09/20 13:00 Resp 28 H 11/09/20 13:00 BP 98/55 11/07/20 22:00 Pulse Ox 95 11/09/20 13:00 Intake & Output 11/08/20 11/09/20 11/09/20 18:59 06:59 18:59 Intake Total 2664.818 5721.549 528.381 Output Total 690 655 400 Balance 953.944 0208.549 128.381 Weight 85.6 kg 85.6 kg Intake: IV 856 756 478 .9 NS pressure bag 36 36 18 0.9NS 240 240 120 Cefepime 2 gm In Sodium 100 100 Chloride 0.9% 100 ml @ 25 mls/hr IVPB Q12HR [facility] Rx #:[id number] TPN 480 480 240 Intake, IV Titration 876.234 9268.549 50.381 Amount Mvi, Adult No.4 with Vit 998 K 10 ml Trace (Conc-1Ml/ Dose) 1 ml Parenteral Electrolytes 20 ml In Amino Acid 4.25%-D10w 1, 000 ml @ 40 mls/hr IV . Q24H [facility] Rx#:[id number] propofoL 500 mg In Empty 150.753 149.549 50.381 Bag 1 bag @ Titrate IV . Q0M [facility] Rx#:[id number] Oral 60 Other 30 Output: Gastric Drainage 50 Urine 690 605 400 Other: Voiding Method Indwelling Catheter Indwelling Catheter Indwelling Catheter ABP, PAP, CO, CI - Last Documented Arterial Blood Pressure 140/59 - Exam Physical Exam: Revealed a 60-year-old female in prone position, on mechanical ventilation, sedated, in no distress. Head: Atraumatic, normocephalic. HEENT:[Neck is supple.] [No neck masses.] [No thyromegaly.] [No JVD.] brandon,eomi, orogastric tube and endotracheal tube are intact. No neck masses, no JVD. Chest: [Symmetrical chest expansion, crackles and rhonchi noted bilaterally..] Cardiac Exam: [Normal S1 and S2, no S3 gallop, no murmur.] Abdomen: [Obese, Soft, nontender, no megaly, no rebound, no guarding, normal bowel sounds.] Extremities: [No clubbing, no edema, no cyanosis.] Skin: No rashes. Neurological Exam: Could not assess, patient is intubated, and sedated on propofol. Not requiring any fentanyl or Nimbex at this point yet. Psychiatric: Could not be assessed - Labs CBC & Chem 7: 11/09/20 04:55 11/09/20 04:55 Labs: Abnormal Lab Results - Last 24 Hours (Table) 11/08/20 11/08/20 11/08/20 Range/Units 15:22 20:51 23:21 WBC (3.8-10.6) k/uL RBC (3.80-5.40) m/uL Hgb (11.4-16.0) gm/dL Hct (34.0-46.0) % MCHC (31.0-37.0) g/dL Neutrophils # (1.3-7.7) k/uL Lymphocytes # (1.0-4.8) k/uL ABG pH (7.35-7.45) ABG pCO2 (35-45) mmHg ABG pO2 (83-108) mmHg ABG HCO3 (21-25) mmol/L ABG Total CO2 (19-24) mmol/L ABG O2 Saturation (94-97) % Carbon Dioxide (22-30) mmol/L BUN (7-17) mg/dL Glucose (74-99) mg/dL POC Glucose (mg/dL) 240 H 175 H 135 H (75-99) mg/dL C-Reactive Protein (<10.0) mg/L 11/09/20 11/09/20 11/09/20 Range/Units 04:45 04:55 04:55 WBC 12.6 H (3.8-10.6) k/uL RBC 3.64 L (3.80-5.40) m/uL Hgb 10.3 L (11.4-16.0) gm/dL Hct 33.4 L (34.0-46.0) % MCHC 30.9 L (31.0-37.0) g/dL Neutrophils # 10.8 H (1.3-7.7) k/uL Lymphocytes # 0.8 L (1.0-4.8) k/uL ABG pH (7.35-7.45) ABG pCO2 (35-45) mmHg ABG pO2 (83-108) mmHg ABG HCO3 (21-25) mmol/L ABG Total CO2 (19-24) mmol/L ABG O2 Saturation (94-97) % Carbon Dioxide 35 H (22-30) mmol/L BUN 33 H (7-17) mg/dL Glucose 179 H (74-99) mg/dL POC Glucose (mg/dL) 175 H (75-99) mg/dL C-Reactive Protein 36.3 H (<10.0) mg/L 11/09/20 11/09/20 11/09/20 Range/Units 05:22 09:52 11:46 WBC (3.8-10.6) k/uL RBC (3.80-5.40) m/uL Hgb (11.4-16.0) gm/dL Hct (34.0-46.0) % MCHC (31.0-37.0) g/dL Neutrophils # (1.3-7.7) k/uL Lymphocytes # (1.0-4.8) k/uL ABG pH 7.31 L (7.35-7.45) ABG pCO2 67 H (35-45) mmHg ABG pO2 114 H (83-108) mmHg ABG HCO3 34 H (21-25) mmol/L ABG Total CO2 36 H (19-24) mmol/L ABG O2 Saturation 99.0 H (94-97) % Carbon Dioxide (22-30) mmol/L BUN (7-17) mg/dL Glucose (74-99) mg/dL POC Glucose (mg/dL) 184 H 179 H (75-99) mg/dL C-Reactive Protein (<10.0) mg/L Assessment and Plan Assessment: Impression: Acute on chronic hypoxic respiratory failure secondary to acute covid 19 pneumonitis. Patient has received remdesivir, remains on IV Decadron, remains on colchicine, Lovenox is presently on hold. Mostly because of GI bleeding. Patient remains intubated and mechanically ventilated. FiO2 is down to 55% and PEEP is down to 14 History of severe COPD. Elevated transaminases secondary to Covid 19 infection Type 2 diabetes. History of dyslipidemia. Obstructive sleep apnea syndrome. History of bipolar disorder. Acute upper GI bleeding with coffee-ground emesis, most likely secondary to erosive gastritis. Recommendation: Continue ventilatory support. Continue nutritional support. Continue intermittent prone positions. Stop Lovenox. Keep Lovenox on hold for now because of her GI bleed. Continue to monitor inflammatory markers. Seem to be trending down nicely. Continue present antibiotics coverage. Continue GI and DVT prophylaxis. Continue intermittent prone positions. Patient remains extremely ill and prognosis is extremely poor and guarded. Her daughter today change her CODE STATUS to DO NOT RESUSCITATE. Critical care time is over 30 minutes. Time with Patient: Greater than 30
[2020-11-09] MEDS: CLEVIDIPINE BUTYRATE 25 MG in EMPTY BAG 1 BAG IV SCH (14:49)
[2020-11-09 15:55] LABS: Glucose,Whole Blood 213 mg/dL (75-99)
--- NOTE | 2020-11-09 16:16 | XR ---
EXAMINATION TYPE: XR chest 1V portable DATE OF EXAM: 11/09/2020 Comparison: 11/08/2020 Clinical History: 60-year-old female Tube placement Findings: ET tube tip just below the level of the medial clavicular heads. NG tube sidehole at the level of the GE junction. Left PICC tip near the cavoatrial junction region. Scoliosis. Heart borderline in size. The outflow occluded device. Diffuse interstitial and patchy air space opacity redemonstrated. Opacity has become slightly less confluent within the periphery of the right base. No sizable effusion. IMPRESSION: Diffuse bilateral interstitial and patchy airspace infiltrates persist. Slightly improving aeration a t the right base.
[2020-11-09] MEDS: FAT EMULSION 20% 250 ML IV SCH (16:32)
[2020-11-09 21:03] LABS: Glucose,Whole Blood 172 mg/dL (75-99)
[2020-11-09] MEDS: clonazePAM 0.5 MG TAB PO SCH (21:18)
[2020-11-09] MEDS: INSULIN DETEMIR (LEVEMIR) 100 UNIT/ML SYR SQ SCH (21:19)
[2020-11-09] MEDS: ARIPiprazole 10 MG TAB PO SCH (21:19)
[2020-11-09] MEDS: MVI, ADULT NO.4 WITH VIT K 10 ML, TRACE (CONC-1ML/DOSE) 1 ML, PARENTERAL ELECTROLYTES 2... IV SCH ×4 (22:16)
--- NOTE | 2020-11-09 23:18 | P.PN ---
Subjective From records: Patient is intubated and cannot provide information This is a 60-year-old patient who follows with Yajaira Barber. Chronic stable medical conditions include diabetes, fibromyalgia, GERD, hypertension, hyperlipidemia, osteoarthritis, obstructive sleep apnea. She is on 3 L of nasal cannula home. Night has been getting it more often lately. Diabetic peripheral neuropathy, obstructive sleep apnea does not use CPAP, chronic kidney disease, arthritis in multiple joints, bipolar schizoaffective disorder. Patient presents of 1 week of increasing shortness of breath. Cough. Slight phlegm. Has had fever for 2 days. Decrease appetite some headaches no loss of taste or smell. No diarrhea. Body aches all over. Patient tested for COVID 19 in the ER. Still somewhat tired rundown. Admitted with bilateral COVID 19 pneumonia, acute hypoxic respiratory failure, acute COPD exacerbation. Patient was started on dexamethasone, Lovenox, Remdesivir, vitamin C vitamin D and zinc. Pulmonary was consulted. Patient has been requiring BiPAP. On October 28 because of increasing oxygen requirement patient is moved to the ICU. Patient was started on IV cefepime and vancomycin. Given convalescent plasma on October 30. PICC line placed-started on TPN and lipids. intubated November 06 Today-ICU: On the ventilator: FiO2 -60, PEEP of 16. Drips include propofol, TPN. Telemetry-sinus rhythm. 11/09/2020 Patient remains in the ICU, intubated and sedated, she is minimally for bilateral Covid pneumonia Patient is not doing well and her prognosis looks guarded She is exposed to Marla hour of prone position with little improvement and blood gases today Daughter today May the patient DO NOT RESUSCITATE per staff Pulmonary/critical care team on the case Review of systems: N/a Active Medications Generic Name Dose Route Start Last Admin Trade Name Freq PRN Reason Stop Dose Admin Acetaminophen 650 mg 10/22/20 14:24 11/05/20 00:06 Acetaminophen Tab 325 Mg Tab PO 650 mg Q6HR PRN Administration Fever and/ or Pain Albuterol Sulfate 4 puff 10/21/20 23:00 11/09/20 23:01 Albuterol Hfa Inhaler INHALATION 4 puff Q4H RAE Administration Aripiprazole 10 mg 10/21/20 21:00 11/09/20 21:19 Aripiprazole 10 Mg Tab PO 10 mg HS RAE Administration Aripiprazole 20 mg 10/21/20 11:45 11/09/20 08:59 Aripiprazole 20 Mg Tab PO 20 mg DAILY RAE Administration Artificial Tears 1 drops 10/29/20 17:56 10/29/20 18:47 Artificial Tears-Hypromellose Drops 15 Ml Btl BOTH EYES 1 drops QID PRN Administration Dry Eye(s) Ascorbic Acid 500 mg 10/21/20 23:00 11/09/20 08:57 Ascorbic Acid 500 Mg Tab PO 500 mg DAILY RAE Administration Atorvastatin Calcium 20 mg 10/22/20 09:00 11/09/20 08:57 Atorvastatin 20 Mg Tab PO 20 mg DAILY RAE Administration Budesonide/Formoterol Fumarate 2 puff 10/21/20 11:43 11/09/20 20:07 Symbicort 160-4.5 Mcg Inhaler INHALATION 2 puff RT-BID REA Administration Chlorhexidine Gluconate 15 ml 11/06/20 21:00 11/09/20 21:16 Chlorhexidine Gluconate 15 Ml Cup MUCOUS MEM 15 ml BID RAE Administration Cholecalciferol 100 mcg 10/21/20 23:00 11/09/20 08:57 Cholecalciferol 25 Mcg (1000 Iu) Tablet PO 100 mcg DAILY RAE Administration Clonazepam 0.5 mg 11/04/20 21:00 11/09/20 21:18 Clonazepam 0.5 Mg Tab PO 0.5 mg HS RAE Administration Colchicine 0.6 mg 11/09/20 09:00 11/09/20 08:58 Colchicine 0.6 Mg Each PO 0.6 mg DAILY RAE Administration Dexamethasone Sodium Phosphate 6 mg 11/08/20 09:00 11/09/20 08:58 Dexamethasone Sod Phosphate 10 Mg/Ml 1 Ml Vial IV 6 mg DAILY RAE Administration Cefepime HCl 2 gm/ Sodium 100 mls @ 25 mls/hr 10/29/20 09:00 11/09/20 21:18 Chloride IVPB 25 mls/hr Q12HR RAE Administration Fat Emulsion Intravenous 250 mls @ 20.833 mls/hr 10/30/20 15:00 11/09/20 16:32 Lipids 20% IV 20.833 mls/hr MoWeFr RAE Administration Propofol 500 mg/ IV Solution 50 mls @ 0 mls/hr 11/06/20 11:45 11/09/20 23:03 IV 40 mcg/kg/min .Q0M RAE 20.544 mls/hr Administration Protocol Titrate Clevidipine 25 mg/ IV Solution 50 mls @ 2 mls/hr 11/06/20 12:15 11/09/20 14:49 IV Not Given .Q24H RAE Protocol 1 MG/HR Parenteral Vitamin Supplement 1,031 mls @ 40 mls/hr 11/07/20 21:00 11/09/20 22:16 10 ml/ Zinc/Copper/Manganese/ IV 40 mls/hr Selenium 1 ml/ Parenteral .Q24H RAE Administration Electrolytes 20 ml/ Amino Acids/Dextrose Insulin Aspart 0 unit 11/05/20 12:00 11/09/20 21:16 Insulin Aspart (Novolog) 100 Unit/Ml Vial SQ 4 unit Q4H RAE Administration Protocol Insulin Detemir 36 unit 11/08/20 21:00 11/09/20 21:19 Insulin Detemir (Levemir) 100 Unit/Ml Syr SQ 36 unit HS RAE Administration Lamotrigine 150 mg 10/21/20 11:45 11/09/20 21:17 Lamotrigine 100 Mg Tab PO 150 mg BID RAE Administration Lidocaine 1 patch 11/04/20 10:45 11/09/20 08:58 Lidocaine 5% Patch TOPICAL 1 patch DAILY RAE Administration Linagliptin 5 mg 10/21/20 11:45 11/09/20 08:59 Linagliptin 5 Mg Tablet PO 5 mg DAILY RAE Administration Losartan Potassium 50 mg 10/21/20 11:45 11/09/20 08:59 Losartan 50 Mg Tab PO 50 mg DAILY RAE Administration Meclizine HCl 25 mg 10/23/20 14:37 Meclizine 25 Mg Tab PO Q8H PRN Nausea And Vomiting Miscellaneous Information 1 each 10/24/20 16:53 Magnesium Replacement Protocol 1 Each Misc MISCELLANE DAILY PRN Per Protocol Protocol Miscellaneous Information 1 each 10/24/20 16:53 Potassium Replacement Protocol 1 Each Misc MISCELLANE DAILY PRN Per Protocol Protocol Morphine Sulfate 2 mg 11/05/20 09:59 11/08/20 04:39 Morphine Sulfate 2 Mg/Ml Syringe IVP 2 mg Q4H PRN Administration Pain/Discomfort Oxcarbazepine 150 mg 10/21/20 11:45 11/09/20 21:19 Oxcarbazepine 150 Mg Tab PO 150 mg BID RAE Administration Pantoprazole Sodium 40 mg 11/06/20 11:00 11/09/20 08:59 Pantoprazole 40 Mg/10 Ml Vial IVP 40 mg DAILY RAE Administration Pregabalin 100 mg 10/21/20 11:45 11/09/20 21:18 Pregabalin 100 Mg Cap PO 100 mg BID RAE Administration Sumatriptan Succinate 100 mg 10/21/20 11:43 Sumatriptan Succinate 50 Mg Tab PO BID PRN Migraine Headache Topiramate 50 mg 10/21/20 11:45 11/09/20 21:21 Topiramate 25 Mg Tab PO 50 mg BID RAE Administration Zinc Sulfate 220 mg 10/21/20 23:00 11/09/20 09:00 Zinc Sulfate 220 Mg Cap PO 220 mg DAILY RAE Administration Objective - Vital Signs Vital signs: Vital Signs Temp 99.7 F H 11/09/20 08:00 Pulse 108 H 11/09/20 13:00 Resp 28 H 11/09/20 13:00 BP 98/55 11/07/20 22:00 Pulse Ox 95 11/09/20 13:00 Intake & Output 11/08/20 11/09/20 11/09/20 18:59 06:59 18:59 Intake Total 7694.305 1630.549 528.381 Output Total 690 655 400 Balance 618.650 2562.549 128.381 Weight 85.6 kg 85.6 kg Intake: IV 856 756 478 .9 NS pressure bag 36 36 18 0.9NS 240 240 120 Cefepime 2 gm In Sodium 100 100 Chloride 0.9% 100 ml @ 25 mls/hr IVPB Q12HR [facility] [place] Rx #:[id number] TPN 480 480 240 Intake, IV Titration 912.648 1831.549 50.381 Amount Mvi, Adult No.4 with Vit 998 K 10 ml Trace (Conc-1Ml/ Dose) 1 ml Parenteral Electrolytes 20 ml In Amino Acid 4.25%-D10w 1, 000 ml @ 40 mls/hr IV . Q24H [facility] [place] Rx#:[id number] propofoL 500 mg In Empty 150.753 149.549 50.381 Bag 1 bag @ Titrate IV . Q0M [facility] Rx#:[id number] Oral 60 Other 30 Output: Gastric Drainage 50 Urine 690 605 400 Other: Voiding Method Indwelling Catheter Indwelling Catheter Indwelling Catheter ABP, PAP, CO, CI - Last Documented Arterial Blood Pressure 140/59 - Exam -GENERAL: The patient is intubated and sedated. HEENT: Pupils are round and equally reacting to light. EOMI. No scleral icterus. No conjunctival pallor. Normocephalic, atraumatic. No pharyngeal erythema. No thyromegaly. CARDIOVASCULAR: S1 and S2 present. No murmurs, rubs, or gallops. PULMONARY: Chest is clear to auscultation, no wheezing or crackles. ABDOMEN: Soft, nontender, nondistended, normoactive bowel sounds. No palpable organomegaly. MUSCULOSKELETAL: No joint swelling or deformity. EXTREMITIES: No cyanosis, clubbing, or pedal edema. NEUROLOGICAL: Gross neurological examination did not reveal any focal deficits. SKIN: No rashes. no petechiae. - Labs CBC & Chem 7: 11/09/20 04:55 11/09/20 04:55 Labs: Abnormal Lab Results - Last 24 Hours (Table) 11/08/20 11/08/20 11/08/20 Range/Units 15:22 20:51 23:21 WBC (3.8-10.6) k/uL RBC (3.80-5.40) m/uL Hgb (11.4-16.0) gm/dL Hct (34.0-46.0) % MCHC (31.0-37.0) g/dL Neutrophils # (1.3-7.7) k/uL Lymphocytes # (1.0-4.8) k/uL ABG pH (7.35-7.45) ABG pCO2 (35-45) mmHg ABG pO2 (83-108) mmHg ABG HCO3 (21-25) mmol/L ABG Total CO2 (19-24) mmol/L ABG O2 Saturation (94-97) % Carbon Dioxide (22-30) mmol/L BUN (7-17) mg/dL Glucose (74-99) mg/dL POC Glucose (mg/dL) 240 H 175 H 135 H (75-99) mg/dL C-Reactive Protein (<10.0) mg/L 11/09/20 11/09/20 11/09/20 Range/Units 04:45 04:55 04:55 WBC 12.6 H (3.8-10.6) k/uL RBC 3.64 L (3.80-5.40) m/uL Hgb 10.3 L (11.4-16.0) gm/dL Hct 33.4 L (34.0-46.0) % MCHC 30.9 L (31.0-37.0) g/dL Neutrophils # 10.8 H (1.3-7.7) k/uL Lymphocytes # 0.8 L (1.0-4.8) k/uL ABG pH (7.35-7.45) ABG pCO2 (35-45) mmHg ABG pO2 (83-108) mmHg ABG HCO3 (21-25) mmol/L ABG Total CO2 (19-24) mmol/L ABG O2 Saturation (94-97) % Carbon Dioxide 35 H (22-30) mmol/L BUN 33 H (7-17) mg/dL Glucose 179 H (74-99) mg/dL POC Glucose (mg/dL) 175 H (75-99) mg/dL C-Reactive Protein 36.3 H (<10.0) mg/L 11/09/20 11/09/20 11/09/20 Range/Units 05:22 09:52 11:46 WBC (3.8-10.6) k/uL RBC (3.80-5.40) m/uL Hgb (11.4-16.0) gm/dL Hct (34.0-46.0) % MCHC (31.0-37.0) g/dL Neutrophils # (1.3-7.7) k/uL Lymphocytes # (1.0-4.8) k/uL ABG pH 7.31 L (7.35-7.45) ABG pCO2 67 H (35-45) mmHg ABG pO2 114 H (83-108) mmHg ABG HCO3 34 H (21-25) mmol/L ABG Total CO2 36 H (19-24) mmol/L ABG O2 Saturation 99.0 H (94-97) % Carbon Dioxide (22-30) mmol/L BUN (7-17) mg/dL Glucose (74-99) mg/dL POC Glucose (mg/dL) 184 H 179 H (75-99) mg/dL C-Reactive Protein (<10.0) mg/L Assessment and Plan Assessment: -Bilateral COVID 19 pneumonia causing sepsis. Slow to respond. Has received Remdesivir. Convalescent plasma. on dexamethasone 20 mg IV daily-being changed over to Decadron, -Also being covered for secondary bacterial pneumonia infection with IV cefepime -Acute COPD exacerbation in an [id number] to respond -acute hypoxic respiratory failure, requiring BiPAP-; intubated November 06. Slow to respond on the ventilator -Possible GI bleed -Diabetes mellitus 2, uncontrolled with hyperglycemia from steroids. Increase Levemir to 36 units -Chronic fibromyalgia -GERD -Essential hypertension, on Cozaar -Hyperlipidemia, on Lipitor -Obstructive sleep apnea does not use CPAP -Diabetic peripheral neuropathy -Primary osteoarthritis of multiple joint -TPN and lipids DVT prophylaxis: Mechanical, hold Lovenox for possible GI bleed GI prophylaxis: PPI Prognosis guarded
[2020-11-10 00:17] LABS: Glucose,Whole Blood 164 mg/dL (75-99)
[2020-11-10] MEDS: INSULIN ASPART (NovoLOG) 100 UNIT/ML VIAL SQ SCH ×6 (00:17→20:21)
[2020-11-10] MEDS: ALBUTEROL HFA INHALER INHALATION SCH ×6 (03:21→23:17)
[2020-11-10 04:14] LABS: Glucose,Whole Blood 167 mg/dL (75-99)
[2020-11-10 04:38] LABS: Basophils % (A) 0 %; Eosinophils # (A) 0.2 k/uL (0-0.7); Eosinophils % (A) 2 %; HCT 34.4 % (34.0-46.0); HGB 10.7 gm/dL (11.4-16.0); Hypochromasia Slight; Lymphocytes # (A) 0.8 k/uL (1.0-4.8); Lymphocytes % (A) 6 %; MCH 28.5 pg (25.0-35.0); MCHC 31.1 g/dL (31.0-37.0); MCV 91.9 fL (80.0-100.0); Mean Platelet Volume 7.4; Monocytes # (A) 0.7 k/uL (0-1.0); Monocytes % (A) 5 %; Neutrophils # (A) 11.2 k/uL (1.3-7.7); Neutrophils % (A) 86 %; Platelet Count 289 k/uL (150-450); RBC 3.74 m/uL (3.80-5.40); RDW 14.8 % (11.5-15.5)
[2020-11-10 04:43] LABS: Ionized Calcium 5.2 mg/dL (4.5-5.3)
[2020-11-10 04:47] LABS: ALT 67 U/L (4-34); AST 53 U/L (14-36); African American GFR (CKD) >90 (>60 ml/min/1.73 sqM); Albumin 2.6 g/dL (3.5-5.0); Alkaline Phosphatase 78 U/L (38-126); Anion Gap 0 mmol/L; Blood Urea Nitrogen 29 mg/dL (7-17); Calcium 8.3 mg/dL (8.4-10.2); Carbon Dioxide 38 mmol/L (22-30); Chloride 101 mmol/L (98-107); Glucose 180 mg/dL (74-99); Non-African American GFR(CKD) >90 (>60 ml/min/1.73 sqM); Phosphorus 2.7 mg/dL (2.5-4.5); Potassium 4.2 mmol/L (3.5-5.1); Sodium 139 mmol/L (137-145); Total Bilirubin 0.5 mg/dL (0.2-1.3); Total Protein 5.4 g/dL (6.3-8.2); Triglycerides 174 mg/dL (<150)
[2020-11-10 05:11] LABS: ABG Base Excess 9.4 mmol/L; ABG HCO3 35 mmol/L (21-25); ABG Oxygen Saturation 98.7 % (94-97); ABG PCO2 59 mmHg (35-45); ABG PH 7.38 (7.35-7.45); ABG PO2 109 mmHg (83-108); ABG TCO2 36 mmol/L (19-24); Allen Test Performed? Yes
[2020-11-10] MEDS: SYMBICORT 160-4.5 MCG INHALER INHALATION SCH ×2 (07:38→19:28)
[2020-11-10 08:01] LABS: Glucose,Whole Blood 172 mg/dL (75-99)
[2020-11-10] MEDS: CHLORHEXIDINE GLUCONATE 15 ML CUP MUCOUS MEM SCH ×2 (08:24→20:21)
[2020-11-10] MEDS: PANTOPRAZOLE 40 MG/10 ML VIAL IVP SCH (08:24)
[2020-11-10] MEDS: DEXAMETHASONE SOD PHOSPHATE 10 MG/ML 1 ML VIAL IV SCH (08:24)
[2020-11-10] MEDS: lamoTRIgine 100 MG TAB PO SCH ×2 (08:25→20:22)
[2020-11-10] MEDS: ASCORBIC ACID 500 MG TAB PO SCH (08:25)
[2020-11-10] MEDS: CHOLECALCIFEROL 25 MCG (1000 IU) TABLET PO SCH (08:25)
[2020-11-10] MEDS: CEFEPIME 2 GM in SODIUM CHLORIDE 0.9% 100 ML IVPB SCH ×2 (08:26→20:21)
[2020-11-10] MEDS: LIDOCAINE 5% PATCH TOPICAL SCH (08:26)
[2020-11-10] MEDS: ZINC SULFATE 220 MG CAP PO SCH (08:26)
[2020-11-10] MEDS: ATORVASTATIN 20 MG TAB PO SCH (08:26)
[2020-11-10] MEDS: PREGABALIN 100 MG CAP PO SCH ×2 (08:26→20:22)
[2020-11-10] MEDS: OXcarbazepine 150 MG TAB PO SCH ×2 (08:27→20:22)
[2020-11-10] MEDS: COLCHICINE 0.6 MG EACH PO SCH (08:27)
[2020-11-10] MEDS: TOPIRAMATE 25 MG TAB PO SCH ×2 (08:28→20:23)
[2020-11-10] MEDS: LOSARTAN 50 MG TAB PO SCH (08:30)
[2020-11-10] MEDS: LINAGLIPTIN 5 MG TABLET PO SCH (08:30)
--- NOTE | 2020-11-10 12:43 | P.PN ---
Subjective Progress Note Date: 11/10/20 Principal diagnosis: Acute on chronic hypoxic respiratory failure secondary to covid 19 pneumonitis. This is a 58-year-old female patient with COVID 19 related pneumonia. The kailey ent has developed progressive worsening and hypoxic respiratory failure secondary to coronavirus/COVID 19 pneumonia. The patient was treated with a combination of treatment including Remdesivir and steroids and the patient was also treated with colchicine. The patient was given anticoagulation with Lovenox. With progressive respiratory failure, the patient was placed on high flow oxygen and subsequently the patient was switched to BiPAP for respiratory support. The patient was initially a DNR/DNI status and somewhat at a later stage she changed her mind and she was consented for short-term intubation mechanical ventilation if needed. She did not want any form of long-term aspiratory support, tracheostomy and feeding tube. The patient currently is on a BiPAP at a pressure of 12/6 cm of water and FiO2 of 100%. Chest x-ray has not shown any significant improvement. For now, the patient is on BiPAP for respiratory support, she is receiving colchicine 0.6 mg by mouth twice a day. She is on Lovenox 40 mg subcu every 12 hours. She is on Levemir insulin 15 units at bedtime in addition to a sliding scale coverage. She is receiving albuterol HFA 4 puffs every 4 hours when necessary and his Symbicort on a 160/4.52 puffs twice a day. The patient is also on IV Solu-Medrol 60 mg every 6 hours. The patient is also on antibiotic coverage with vancomycin. The patient is on BiPAP at a pressure of 12/6 cm of water with an FiO2 of 100%. The chest x-ray shows stable findings. While on the BiPAP, she is able to generate a tidal volume as high as 800. Nevertheless she is quite tachypneic and her minute ventilation is around 18-20 L per minute. Her pulse ox is order of 91%. Even while being given her medication, she seems to be desaturating out of it. Otherwise, she is hemodynamically stable. No chest pain. No altered mentation. No fever. No chills. She was unable to eat and she is currently on TPN for nutritional support. On 11/07/2020, the patient is being seen in follow-up. The patient was intubated yesterday and postintubation she became profoundly hypoxic and based on that, the appropriate ventilator changes were done. I ultimately put the patient on an assist-control mode at the rate of 78 with a tidal volume of 350 and the PEEP was at 20 with an FiO2 of 100%. Subsequently, we were able to wean down the PEEP down to 75%. The most recent blood gases was a 75% FiO2 showed a pH of 7.33 with a pCO2 of 51 and pO2 of 139. She is currently in a prone body positioning. I'm going to liver back to supine today after being thrown for the past 16 hours. No chest x-rays available from today. Meanwhile, the patient has a peak airway pressure that around 33 while she is been in a prone body position. On today's evaluation, she is sedated with propofol which is currently running at 45 micrograms per KG per minute. She is still on TPN for nutritional support. She is hemodynamically stable on no pressors. IV fluids are all. She has a PICC line and she also has an arterial line. On today's blood work, his CRP level is up to 179, pro calcitonin from yesterday was 0.1, her LDH level is at 782, there was a causative 12.6 with a hemoglobin of 12.6. Platelet count is at 96. Renal function stable with a creatinine of 0.1. The net fluid balance over the past 24 hours is been negative to 45 mL. The patient remains on Decadron 20 mg IV, colchicine 0.6 mg by mouth twice a day, she is also on zinc sulfate and multivitamins. Antibiotic coverage is with IV cefepime. Lovenox Discontinued yesterday as the patient developed coffee-ground emesis and this was also noted in her OG. Based on that, no enteral feeding has been done and the patient is still on TPN for nutritional support. Patient was reevaluated today on 11/08/2020, patient remains in the ICU, intubated and mechanically ventilated. She is presently on assist control mode of mechanical ventilation, tidal volume is 350 rate of 28 FiO2 60% PEEP was 18 and I cut it down to 16. ABG showed a pO2 of 106 pCO2 of 67 pH of 7.30. Patient is now in prone position. She remains on propofol at 45 mcg/kg/m, she is also on TPN. She is not requiring any pressors. Chest x-ray showed significant interstitial edema involving the right lung, more so than the left lung. CBC showed WBC count of 14.4, hemoglobin is 11.4 d-dimer is 1.90, electrolytes and renal profile are normal LDH is 745 C-reactive protein 83.1 blood sugar is 168. Patient is on TPN. Continues to have some coffee-ground material in the orogastric tube. Patient has been intermittently in prone position for about 16 hours. And this morning she was still in prone position from earlier today. After reviewing the ABG, I recommended cutting down the PEEP from 18-16 and kept her on 60% FiO2. Patient remains on Decadron, colchicine, she is also on zinc and multivitamins. Remains on cefepime, Lovenox is presently on hold. Reevaluated today on 11/09/2020, patient remains in the ICU, intubated and mechanically ventilated. She is back in a prone position this morning. Her ventilator settings are assist control rate of 28 tidal volume 350 FiO2 is 60% PEEP is 16 after reviewing her ABG, I cut down her PEEP down to 14 and her FiO2 is down to 55%. ABG showed a pO2 of 114 pCO2 of 67 pH of 7.31. Patient remains on propofol at 45 mcg/kg/m, she is also on TPN which is presently on hold and the patient is receiving enteral feeding. Patient was intubated on 11/06/2020, and she has been intermittently late in prone positioning. Chest x-ray continues to show bilateral infiltrates, right more so than left. CBC is relatively normal. Basic metabolic profile is normal. Renal profile is normal. C-reactive protein is 36 and her LDH is 593, both are trending down Patient was reevaluated today on 11/10/2020, patient remains in the ICU, remains intubated and mechanically ventilated. Her ventilator settings are assist control rate of 28, tidal volume 350 FiO2 is down to 55% this morning and the PEEP is down to 12. ABG on 60% and PEEP of 14 showed a pO2 of 109 pCO2 of 59 pH of 7.38. Patient remains on TPN, up to goal, propofol at 45 mcg/kg/m, I will fluid at KVO. Pressure is 25 her plateau pressure is 20 chest x-ray continues to show diffuse interstitial infiltrates bilaterally. Right more so than left. Today after reevaluating the patient, I have recommended cutting down the PEEP to 12 and FiO2 down to 50%. I also increased the flow to 75 L/m. Patient is now in prone position, however when she is in supine position, I have instructed holding sedation, and assessment of mental status today this afternoon. Chest x-ray was reviewed CBC is relatively normal ABG was reviewed. Basic metabolic profile is normal and her renal profile is normal. Liver profile is relatively unremarkable except for slightly elevated transaminases. Patient remains on the Coumadin 19 cocktail, she is also on cefepime. Colchicine Decadron 6 mg IV push daily, insulin Trileptal, Protonix, and zinc. Is also on cefepime which I will continue for the time being. Objective - Vital Signs Vital signs: Vital Signs Temp 99 F 11/10/20 08:00 Pulse 98 11/10/20 10:00 Resp 30 H 11/10/20 10:00 BP 98/53 11/10/20 10:00 Pulse Ox 95 11/10/20 10:00 Intake & Output 11/09/20 11/10/20 11/10/20 18:59 06:59 18:59 Intake Total 4762.398 9033.248 212 Output Total 950 665 540 Balance 81.618 1209.248 -328 Weight 85.6 kg 85 kg Intake: IV 877 716 212 .9 NS pressure bag 36 36 12 0.9NS 240 200 80 Cefepime 2 gm In Sodium 100 Chloride 0.9% 100 ml @ 25 mls/hr IVPB Q12HR [facility] Rx #:[id number] Fat Emulsion 20% 250 ml @ 21 20.833 mls/hr IV MoWeFr [facility] Rx#:[id number] TPN 480 480 120 Intake, IV Titration 764.120 4320.248 Amount Mvi, Adult No.4 with Vit 1012.667 K 10 ml Trace (Conc-1Ml/ Dose) 1 ml Parenteral Electrolytes 20 ml In Amino Acid 4.25%-D10w 1, 000 ml @ 40 mls/hr IV . Q24H [facility] Rx#:[id number] propofoL 500 mg In Empty 154.618 145.581 Bag 1 bag @ Titrate IV . Q0M [facility] Rx#:[id number] Output: Gastric Drainage 300 Urine 950 665 240 Other: Voiding Method Indwelling Catheter Indwelling Catheter Indwelling Catheter # Bowel Movements 2 ABP, PAP, CO, CI - Last Documented Arterial Blood Pressure 114/51 - Exam Physical Exam: Revealed a 60-year-old female in prone position, until 3 PM this afternoon on mechanical ventilation, sedated, in no distress. On propofol only. Head: Atraumatic, normocephalic. HEENT:[Neck is supple.] [No neck masses.] [No thyromegaly.] [No JVD.] brandon,eomi, orogastric tube and endotracheal tube are intact. No neck masses, no JVD. Chest: [Symmetrical chest expansion, crackles and rhonchi noted bilaterally..] Cardiac Exam: [Normal S1 and S2, no S3 gallop, no murmur.] Abdomen: [Obese, Soft, nontender, no megaly, no rebound, no guarding, normal bowel sounds.] Extremities: [No clubbing, no edema, no cyanosis.] Skin: No rashes. Neurological Exam: Could not assess, patient is intubated, and sedated on propofol. Not requiring any fentanyl or Nimbex at this point yet. Psychiatric: Could not be assessed - Labs CBC & Chem 7: 11/10/20 04:15 11/10/20 04:15 Labs: Abnormal Lab Results - Last 24 Hours (Table) 11/06/20 11/09/20 11/09/20 Range/Units 05:40 15:54 21:01 WBC (3.8-10.6) k/uL RBC (3.80-5.40) m/uL Hgb (11.4-16.0) gm/dL Neutrophils # (1.3-7.7) k/uL Lymphocytes # (1.0-4.8) k/uL ABG pCO2 (35-45) mmHg ABG pO2 (83-108) mmHg ABG HCO3 (21-25) mmol/L ABG Total CO2 (19-24) mmol/L ABG O2 Saturation (94-97) % Carbon Dioxide (22-30) mmol/L BUN (7-17) mg/dL Glucose (74-99) mg/dL POC Glucose (mg/dL) 213 H 172 H (75-99) mg/dL Calcium (8.4-10.2) mg/dL AST (14-36) U/L ALT (4-34) U/L Total Protein (6.3-8.2) g/dL Albumin (3.5-5.0) g/dL Triglycerides (<150) mg/dL Procalcitonin 0.10 H (0.02-0.09) ng/mL 11/10/20 11/10/20 11/10/20 Range/Units 00:06 04:11 04:15 WBC 13.0 H (3.8-10.6) k/uL RBC 3.74 L (3.80-5.40) m/uL Hgb 10.7 L (11.4-16.0) gm/dL Neutrophils # 11.2 H (1.3-7.7) k/uL Lymphocytes # 0.8 L (1.0-4.8) k/uL ABG pCO2 (35-45) mmHg ABG pO2 (83-108) mmHg ABG HCO3 (21-25) mmol/L ABG Total CO2 (19-24) mmol/L ABG O2 Saturation (94-97) % Carbon Dioxide (22-30) mmol/L BUN (7-17) mg/dL Glucose (74-99) mg/dL POC Glucose (mg/dL) 164 H 167 H (75-99) mg/dL Calcium (8.4-10.2) mg/dL AST (14-36) U/L ALT (4-34) U/L Total Protein (6.3-8.2) g/dL Albumin (3.5-5.0) g/dL Triglycerides (<150) mg/dL Procalcitonin (0.02-0.09) ng/mL 11/10/20 11/10/20 11/10/20 Range/Units 04:15 05:07 08:00 WBC (3.8-10.6) k/uL RBC (3.80-5.40) m/uL Hgb (11.4-16.0) gm/dL Neutrophils # (1.3-7.7) k/uL Lymphocytes # (1.0-4.8) k/uL ABG pCO2 59 H (35-45) mmHg ABG pO2 109 H (83-108) mmHg ABG HCO3 35 H (21-25) mmol/L ABG Total CO2 36 H (19-24) mmol/L ABG O2 Saturation 98.7 H (94-97) % Carbon Dioxide 38 H (22-30) mmol/L BUN 29 H (7-17) mg/dL Glucose 180 H (74-99) mg/dL POC Glucose (mg/dL) 172 H (75-99) mg/dL Calcium 8.3 L (8.4-10.2) mg/dL AST 53 H (14-36) U/L ALT 67 H (4-34) U/L Total Protein 5.4 L (6.3-8.2) g/dL Albumin 2.6 L (3.5-5.0) g/dL Triglycerides 174 H (<150) mg/dL Procalcitonin (0.02-0.09) ng/mL Microbiology - Last 24 Hours (Table) 11/08/20 20:58 Blood Culture - Preliminary Blood No Growth after 24 hours Assessment and Plan Assessment: Impression: Acute on chronic hypoxic respiratory failure secondary to acute covid 19 pneumonitis. Patient has been treated with multiple regimens for her pneumonitis, I believe there is definite slight improvement but the patient remains critically ill. And my plan is to cut down the FiO2 further, cut down the PEEP further, and today I plan to assess mental status off for possibly on a lower dose of propofol. Elevated transaminases secondary to Covid 19 infection, improving Type 2 diabetes. History of dyslipidemia. Obstructive sleep apnea syndrome. History of bipolar disorder. Acute upper GI bleeding with coffee-ground emesis, most likely secondary to erosive gastritis. Recommendation: Continue ventilatory support. Cut down her FiO2 to 55% cut down PEEP to 12 increased flow rates to 75 L/m Continue nutritional support. Patient is on TPN, may transitioned to enteral feeding. Her GI bleeding has resolved Continue intermittent prone positions. Keep Lovenox on hold for now because of her GI bleed. Continue cefepime. Continue GI and DVT prophylaxis. Continue intermittent prone positions. Patient remains extremely ill and prognosis is extremely poor and guarded. CODE STATUS has been changed to DO NOT RESUSCITATE Critical care time is over 30 minutes. Time with Patient: Greater than 30
[2020-11-10 12:59] LABS: Glucose,Whole Blood 190 mg/dL (75-99)
[2020-11-10] MEDS: CLEVIDIPINE BUTYRATE 25 MG in EMPTY BAG 1 BAG IV SCH (13:00)
--- NOTE | 2020-11-10 16:02 | XR ---
EXAMINATION TYPE: XR chest 1V portable DATE OF EXAM: 11/10/2020 COMPARISON: 11/09/2020 INDICATION: Tube placement TECHNIQUE: Single frontal view of the chest is obtained. FINDINGS: The heart size is normal. The pulmonary vasculature is normal. Diffuse increased lung markings are present bilaterally. Greater focal consolidations at the lung bas es bilaterally. Endotracheal tube tip is above the sancho. Nasogastric tube transverses the thorax with tip in the pr oximal left upper quadrant of the abdomen. PICC line enters on the left with the tip in the distal waddell perior vena cava region. IMPRESSION: 1. Diffuse bilateral lung infiltrates similar to comparison.
[2020-11-10 16:20] LABS: Glucose,Whole Blood 201 mg/dL (75-99)
[2020-11-10 20:09] LABS: Glucose,Whole Blood 145 mg/dL (75-99)
[2020-11-10] MEDS: clonazePAM 0.5 MG TAB PO SCH (20:21)
[2020-11-10] MEDS: ARIPiprazole 10 MG TAB PO SCH (20:21)
[2020-11-10] MEDS: INSULIN DETEMIR (LEVEMIR) 100 UNIT/ML SYR SQ SCH (20:21)
--- NOTE | 2020-11-10 20:56 | P.PN ---
Subjective From records: Patient is intubated and cannot provide information This is a 60-year-old patient who follows with Yajaira Barber. Chronic stable medical conditions include diabetes, fibromyalgia, GERD, hypertension, hyperlipidemia, osteoarthritis, obstructive sleep apnea. She is on 3 L of nasal cannula home. Night has been getting it more often lately. Diabetic peripheral neuropathy, obstructive sleep apnea does not use CPAP, chronic kidney disease, arthritis in multiple joints, bipolar schizoaffective disorder. Patient presents of 1 week of increasing shortness of breath. Cough. Slight phlegm. Has had fever for 2 days. Decrease appetite some headaches no loss of taste or smell. No diarrhea. Body aches all over. Patient tested for COVID 19 in the ER. Still somewhat tired rundown. Admitted with bilateral COVID 19 pneumonia, acute hypoxic respiratory failure, acute COPD exacerbation. Patient was started on dexamethasone, Lovenox, Remdesivir, vitamin C vitamin D and zinc. Pulmonary was consulted. Patient has been requiring BiPAP. On October 28 because of increasing oxygen requirement patient is moved to the ICU. Patient was started on IV cefepime and vancomycin. Given convalescent plasma on October 30. PICC line placed-started on TPN and lipids. intubated November 06 Today-ICU: On the ventilator: FiO2 -60, PEEP of 16. Drips include propofol, TPN. Telemetry-sinus rhythm. 11/09/2020 Patient remains in the ICU, intubated and sedated, she is minimally for bilateral Covid pneumonia Patient is not doing well and her prognosis looks guarded She is exposed to Marla hour of prone position with little improvement and blood gases today Daughter today May the patient DO NOT RESUSCITATE per staff Pulmonary/critical care team on the case 11/10/2020 pt remains in the ICU intubated and sedated and she is followed closely by pulmonary/critical care team who manage her vent setting. Patient remains in critical condition and slowly to progress. She spends about 16 hours in the prone position, however in supine position she is undergoing weaning off sedation to assess her mental status. Suctioning showing moderate amount of whitish secretion, we will send for sputum culture. Also patient has Almeida cat heter. She is still running fever around 100. She is tachypneic. Blood pressure is stable with no need for pressors. With that showed leukocytosis of 13 K today. While creatinine and electrolytes are normal. LDH was normal yesterday and C-reactive protein trending down to 36.3. D-dimer is 1.92 days ago. Patient is not on anticoagulation because of possible upper GI bleed Review of systems: N/a Active Medications Generic Name Dose Route Start Last Admin Trade Name Freq PRN Reason Stop Dose Admin Acetaminophen 650 mg 10/22/20 14:24 11/05/20 00:06 Acetaminophen Tab 325 Mg Tab PO 650 mg Q6HR PRN Administration Fever and/ or Pain Albuterol Sulfate 4 puff 10/21/20 23:00 11/10/20 11:18 Albuterol Hfa Inhaler INHALATION 4 puff Q4H RAE Administration Aripiprazole 10 mg 10/21/20 21:00 11/09/20 21:19 Aripiprazole 10 Mg Tab PO 10 mg HS RAE Administration Aripiprazole 20 mg 10/21/20 11:45 11/10/20 08:29 Aripiprazole 20 Mg Tab PO 20 mg DAILY RAE Administration Artificial Tears 1 drops 10/29/20 17:56 10/29/20 18:47 Artificial Tears-Hypromellose Drops 15 Ml Btl BOTH EYES 1 drops QID PRN Administration Dry Eye(s) Ascorbic Acid 500 mg 10/21/20 23:00 11/10/20 08:25 Ascorbic Acid 500 Mg Tab PO 500 mg DAILY RAE Administration Atorvastatin Calcium 20 mg 10/22/20 09:00 11/10/20 08:26 Atorvastatin 20 Mg Tab PO 20 mg DAILY RAE Administration Budesonide/Formoterol Fumarate 2 puff 10/21/20 11:43 11/10/20 07:38 Symbicort 160-4.5 Mcg Inhaler INHALATION 2 puff RT-BID RAE Administration Chlorhexidine Gluconate 15 ml 11/06/20 21:00 11/10/20 08:24 Chlorhexidine Gluconate 15 Ml Cup MUCOUS MEM 15 ml BID RAE Administration Cholecalciferol 100 mcg 10/21/20 23:00 11/10/20 08:25 Cholecalciferol 25 Mcg (1000 Iu) Tablet PO 100 mcg DAILY RAE Administration Clonazepam 0.5 mg 11/04/20 21:00 11/09/20 21:18 Clonazepam 0.5 Mg Tab PO 0.5 mg HS RAE Administration Colchicine 0.6 mg 11/09/20 09:00 11/10/20 08:27 Colchicine 0.6 Mg Each PO 0.6 mg DAILY RAE Administration Dexamethasone Sodium Phosphate 6 mg 11/08/20 09:00 11/10/20 08:24 Dexamethasone Sod Phosphate 10 Mg/Ml 1 Ml Vial IV 6 mg DAILY RAE Administration Cefepime HCl 2 gm/ Sodium 100 mls @ 25 mls/hr 10/29/20 09:00 11/10/20 08:26 Chloride IVPB 25 mls/hr Q12HR RAE Administration Fat Emulsion Intravenous 250 mls @ 20.833 mls/hr 10/30/20 15:00 11/09/20 16:32 Lipids 20% IV 20.833 mls/hr MoWeFr RAE Administration Propofol 500 mg/ IV Solution 50 mls @ 0 mls/hr 11/06/20 11:45 11/10/20 05:40 IV 45 mcg/kg/min .Q0M RAE 23.112 mls/hr Administration Protocol Titrate Clevidipine 25 mg/ IV Solution 50 mls @ 2 mls/hr 11/06/20 12:15 11/09/20 14:49 IV Not Given .Q24H RAE Protocol 1 MG/HR Parenteral Vitamin Supplement 1,031 mls @ 40 mls/hr 11/07/20 21:00 11/09/20 22:16 10 ml/ Zinc/Copper/Manganese/ IV 40 mls/hr Selenium 1 ml/ Parenteral .Q24H RAE Administration Electrolytes 20 ml/ Amino Acids/Dextrose Insulin Aspart 0 unit 11/05/20 12:00 11/10/20 08:31 Insulin Aspart (Novolog) 100 Unit/Ml Vial SQ 4 unit Q4H RAE Administration Protocol Insulin Detemir 36 unit 11/08/20 21:00 11/09/20 21:19 Insulin Detemir (Levemir) 100 Unit/Ml Syr SQ 36 unit HS RAE Administration Lamotrigine 150 mg 10/21/20 11:45 11/10/20 08:25 Lamotrigine 100 Mg Tab PO 150 mg BID RAE Administration Lidocaine 1 patch 11/04/20 10:45 11/10/20 08:26 Lidocaine 5% Patch TOPICAL 1 patch DAILY RAE Administration Linagliptin 5 mg 10/21/20 11:45 11/10/20 08:30 Linagliptin 5 Mg Tablet PO 5 mg DAILY RAE Administration Losartan Potassium 50 mg 10/21/20 11:45 11/10/20 08:30 Losartan 50 Mg Tab PO 50 mg DAILY RAE Administration Meclizine HCl 25 mg 10/23/20 14:37 Meclizine 25 Mg Tab PO Q8H PRN Nausea And Vomiting Miscellaneous Information 1 each 10/24/20 16:53 Magnesium Replacement Protocol 1 Each Misc MISCELLANE DAILY PRN Per Protocol Protocol Miscellaneous Information 1 each 10/24/20 16:53 Potassium Replacement Protocol 1 Each Misc MISCELLANE DAILY PRN Per Protocol Protocol Morphine Sulfate 2 mg 11/05/20 09:59 11/08/20 04:39 Morphine Sulfate 2 Mg/Ml Syringe IVP 2 mg Q4H PRN Administration Pain/Discomfort Oxcarbazepine 150 mg 10/21/20 11:45 11/10/20 08:27 Oxcarbazepine 150 Mg Tab PO 150 mg BID RAE Administration Pantoprazole Sodium 40 mg 11/06/20 11:00 11/10/20 08:24 Pantoprazole 40 Mg/10 Ml Vial IVP 40 mg DAILY RAE Administration Pregabalin 100 mg 10/21/20 11:45 11/10/20 08:26 Pregabalin 100 Mg Cap PO 100 mg BID RAE Administration Sumatriptan Succinate 100 mg 10/21/20 11:43 Sumatriptan Succinate 50 Mg Tab PO BID PRN Migraine Headache Topiramate 50 mg 10/21/20 11:45 11/10/20 08:28 Topiramate 25 Mg Tab PO 50 mg BID RAE Administration Zinc Sulfate 220 mg 10/21/20 23:00 11/10/20 08:26 Zinc Sulfate 220 Mg Cap PO 220 mg DAILY RAE Administration Objective - Vital Signs Vital signs: Vital Signs Temp 99 F 11/10/20 08:00 Pulse 98 11/10/20 10:00 Resp 30 H 11/10/20 10:00 BP 98/53 11/10/20 10:00 Pulse Ox 95 11/10/20 10:00 Intake & Output 11/09/20 11/10/20 11/10/20 18:59 06:59 18:59 Intake Total 5447.542 2289.248 212 Output Total 950 665 540 Balance 81.618 1209.248 -328 Weight 85.6 kg 85 kg Intake: IV 877 716 212 .9 NS pressure bag 36 36 12 0.9NS 240 200 80 Cefepime 2 gm In Sodium 100 Chloride 0.9% 100 ml @ 25 mls/hr IVPB Q12HR RAE Rx #:[id number] Fat Emulsion 20% 250 ml @ 21 20.833 mls/hr IV MoWeFr RAE Rx#:[id number] TPN 480 480 120 Intake, IV Titration 834.315 2296.248 Amount Mvi, Adult No.4 with Vit 1012.667 K 10 ml Trace (Conc-1Ml/ Dose) 1 ml Parenteral Electrolytes 20 ml In Amino Acid 4.25%-D10w 1, 000 ml @ 40 mls/hr IV . Q24H RAE Rx#:[id number] propofoL 500 mg In Empty 154.618 145.581 Bag 1 bag @ Titrate IV . Q0M RAE Rx#:[id number] Output: Gastric Drainage 300 Urine 950 665 240 Other: Voiding Method Indwelling Catheter Indwelling Catheter Indwelling Catheter # Bowel Movements 2 ABP, PAP, CO, CI - Last Documented Arterial Blood Pressure 114/51 - Exam -GENERAL: The patient is intubated and sedated. HEENT: Pupils are round and equally reacting to light. EOMI. No scleral icterus. No conjunctival pallor. Normocephalic, atraumatic. No pharyngeal erythema. No thyromegaly. CARDIOVASCULAR: S1 and S2 present. No murmurs, rubs, or gallops. PULMONARY: Chest is clear to auscultation, no wheezing or crackles. ABDOMEN: Soft, nontender, nondistended, normoactive bowel sounds. No palpable organomegaly. MUSCULOSKELETAL: No joint swelling or deformity. EXTREMITIES: No cyanosis, clubbing, or pedal edema. NEUROLOGICAL: Gross neurological examination did not reveal any focal deficits. SKIN: No rashes. no petechiae. - Labs CBC & Chem 7: 11/10/20 04:15 11/10/20 04:15 Labs: Abnormal Lab Results - Last 24 Hours (Table) 11/09/20 11/09/20 11/09/20 Range/Units 11:46 15:54 21:01 WBC (3.8-10.6) k/uL RBC (3.80-5.40) m/uL Hgb (11.4-16.0) gm/dL Neutrophils # (1.3-7.7) k/uL Lymphocytes # (1.0-4.8) k/uL ABG pCO2 (35-45) mmHg ABG pO2 (83-108) mmHg ABG HCO3 (21-25) mmol/L ABG Total CO2 (19-24) mmol/L ABG O2 Saturation (94-97) % Carbon Dioxide (22-30) mmol/L BUN (7-17) mg/dL Glucose (74-99) mg/dL POC Glucose (mg/dL) 179 H 213 H 172 H (75-99) mg/dL Calcium (8.4-10.2) mg/dL AST (14-36) U/L ALT (4-34) U/L Total Protein (6.3-8.2) g/dL Albumin (3.5-5.0) g/dL Triglycerides (<150) mg/dL 11/10/20 11/10/20 11/10/20 Range/Units 00:06 04:11 04:15 WBC 13.0 H (3.8-10.6) k/uL RBC 3.74 L (3.80-5.40) m/uL Hgb 10.7 L (11.4-16.0) gm/dL Neutrophils # 11.2 H (1.3-7.7) k/uL Lymphocytes # 0.8 L (1.0-4.8) k/uL ABG pCO2 (35-45) mmHg ABG pO2 (83-108) mmHg ABG HCO3 (21-25) mmol/L ABG Total CO2 (19-24) mmol/L ABG O2 Saturation (94-97) % Carbon Dioxide (22-30) mmol/L BUN (7-17) mg/dL Glucose (74-99) mg/dL POC Glucose (mg/dL) 164 H 167 H (75-99) mg/dL Calcium (8.4-10.2) mg/dL AST (14-36) U/L ALT (4-34) U/L Total Protein (6.3-8.2) g/dL Albumin (3.5-5.0) g/dL Triglycerides (<150) mg/dL 11/10/20 11/10/20 11/10/20 Range/Units 04:15 05:07 08:00 WBC (3.8-10.6) k/uL RBC (3.80-5.40) m/uL Hgb (11.4-16.0) gm/dL Neutrophils # (1.3-7.7) k/uL Lymphocytes # (1.0-4.8) k/uL ABG pCO2 59 H (35-45) mmHg ABG pO2 109 H (83-108) mmHg ABG HCO3 35 H (21-25) mmol/L ABG Total CO2 36 H (19-24) mmol/L ABG O2 Saturation 98.7 H (94-97) % Carbon Dioxide 38 H (22-30) mmol/L BUN 29 H (7-17) mg/dL Glucose 180 H (74-99) mg/dL POC Glucose (mg/dL) 172 H (75-99) mg/dL Calcium 8.3 L (8.4-10.2) mg/dL AST 53 H (14-36) U/L ALT 67 H (4-34) U/L Total Protein 5.4 L (6.3-8.2) g/dL Albumin 2.6 L (3.5-5.0) g/dL Triglycerides 174 H (<150) mg/dL Microbiology - Last 24 Hours (Table) 11/08/20 20:58 Blood Culture - Preliminary Blood No Growth after 24 hours Assessment and Plan Assessment: -Bilateral COVID 19 pneumonia causing sepsis. Slow to respond. Has received Remdesivir. Convalescent plasma. on dexamethasone -Also being covered for secondary bacterial pneumonia infection with IV cefepime -Acute COPD exacerbation in an [id number] to respond -acute hypoxic respiratory failure, requiring BiPAP-; intubated November 06. Slow to respond on the ventilator -Upper GI bleed, hold anticoagulation -Diabetes mellitus 2, uncontrolled with hyperglycemia from steroids. Increase Levemir to 36 units -Chronic fibromyalgia -GERD -Essential hypertension, on Cozaar -Hyperlipidemia, on Lipitor -Obstructive sleep apnea does not use CPAP -Diabetic peripheral neuropathy -Primary osteoarthritis of multiple joint -TPN and lipids DVT prophylaxis: Mechanical, hold Lovenox for possible GI bleed GI prophylaxis: PPI Prognosis guarded No code
--- NOTE | 2020-11-10 21:54 | PN ---
PROGRESS NOTE DATE OF SERVICE: 11/10/2020 REASON FOR FOLLOWUP: Pneumonia. INTERVAL HISTORY: The patient is currently afebrile. The patient remains intubated on the vent. FiO2 is cut down to 55%. No significant purulent secretions in ET or diarrhea or any other changes reported by the nursing staff. PHYSICAL EXAMINATION: Blood pressure 145/58 with a pulse of 90, temperature 98.8. She is 93% on 55% FiO2. General description is a middle-aged female intubated on the vent. RESPIRATORY SYSTEM: Unlabored breathing with decreased intensity of breath sounds. HEART: S1, S2 ABDOMEN: Soft. No tenderness. LABS: Hemoglobin is 10.7, white count 13,000. BUN of 29, creatinine 0.70. Liver enzymes are mildly elevated. DIAGNOSTIC IMPRESSION AND PLAN: Patient with acute respiratory failure, multifactorial, in this patient who did have a confirmed COVID-19 infection and completed her remdesivir therapy, with subsequent worsening. Did have elevated Procalcitonin and was empirically treated with cefepime. Culture has been negative. Monitor clinical course closely. Continue supportive care. MMODL / IJN: [id number] /
[2020-11-10 23:57] LABS: Glucose,Whole Blood 123 mg/dL (75-99)
[2020-11-11] MEDS: INSULIN ASPART (NovoLOG) 100 UNIT/ML VIAL SQ SCH ×6 (00:30→20:18)
[2020-11-11] MEDS: MVI, ADULT NO.4 WITH VIT K 10 ML, TRACE (CONC-1ML/DOSE) 1 ML, PARENTERAL ELECTROLYTES 2... IV SCH ×4 (01:27)
[2020-11-11] MEDS: ALBUTEROL HFA INHALER INHALATION SCH ×6 (03:04→22:58)
[2020-11-11 04:25] LABS: Glucose,Whole Blood 160 mg/dL (75-99)
[2020-11-11 04:29] LABS: HGB 9.9 gm/dL (11.4-16.0); MCH 28.8 pg (25.0-35.0); MCHC 31.8 g/dL (31.0-37.0); MCV 90.6 fL (80.0-100.0); Mean Platelet Volume 7.5; Platelet Count 242 k/uL (150-450); RBC 3.42 m/uL (3.80-5.40); RDW 14.9 % (11.5-15.5); WBC 11.4 k/uL (3.8-10.6)
[2020-11-11 04:51] LABS: ALT 56 U/L (4-34); AST 46 U/L (14-36); African American GFR (CKD) >90 (>60 ml/min/1.73 sqM); Albumin 2.5 g/dL (3.5-5.0); Alkaline Phosphatase 71 U/L (38-126); Anion Gap 2 mmol/L; Blood Urea Nitrogen 26 mg/dL (7-17); C Reactive Protein 31.2 mg/L (<10.0); Calcium 8.2 mg/dL (8.4-10.2); Carbon Dioxide 35 mmol/L (22-30); Chloride 102 mmol/L (98-107); Glucose 160 mg/dL (74-99); LDH 505 U/L (313-618); Magnesium 1.9 mg/dL (1.6-2.3); Non-African American GFR(CKD) >90 (>60 ml/min/1.73 sqM); Phosphorus 2.8 mg/dL (2.5-4.5); Potassium 3.8 mmol/L (3.5-5.1); Sodium 139 mmol/L (137-145); Total Bilirubin 0.5 mg/dL (0.2-1.3); Total Protein 5.2 g/dL (6.3-8.2)
[2020-11-11 04:58] LABS: ABG HCO3 34 mmol/L (21-25); ABG Oxygen Saturation 98.3 % (94-97); ABG PCO2 59 mmHg (35-45); ABG PH 7.37 (7.35-7.45); ABG PO2 97 mmHg (83-108); ABG TCO2 36 mmol/L (19-24)
[2020-11-11 05:07] LABS: Allen Test Performed? no
[2020-11-11] MEDS ORDERED: POTASSIUM BICARBONATE/CIT AC 20 MEQ TABLET.EFF NG-TUBE SCH (06:00)
[2020-11-11] MEDS: SYMBICORT 160-4.5 MCG INHALER INHALATION SCH ×2 (07:17→19:24)
[2020-11-11 07:46] LABS: Glucose,Whole Blood 134 mg/dL (75-99)
[2020-11-11] MEDS: PANTOPRAZOLE 40 MG/10 ML VIAL IVP SCH (08:12)
[2020-11-11] MEDS: DEXAMETHASONE SOD PHOSPHATE 10 MG/ML 1 ML VIAL IV SCH (08:12)
[2020-11-11] MEDS: ATORVASTATIN 20 MG TAB PO SCH (08:12)
[2020-11-11] MEDS: CHLORHEXIDINE GLUCONATE 15 ML CUP MUCOUS MEM SCH ×2 (08:12→20:22)
[2020-11-11] MEDS: ASCORBIC ACID 500 MG TAB PO SCH (08:13)
[2020-11-11] MEDS: CHOLECALCIFEROL 25 MCG (1000 IU) TABLET PO SCH (08:13)
[2020-11-11] MEDS: ZINC SULFATE 220 MG CAP PO SCH (08:13)
[2020-11-11] MEDS: CEFEPIME 2 GM in SODIUM CHLORIDE 0.9% 100 ML IVPB SCH ×2 (08:13→20:23)
[2020-11-11] MEDS: lamoTRIgine 100 MG TAB PO SCH ×2 (08:13→20:23)
[2020-11-11] MEDS: LOSARTAN 50 MG TAB PO SCH (08:13)
[2020-11-11] MEDS: PREGABALIN 100 MG CAP PO SCH ×2 (08:13→20:22)
[2020-11-11] MEDS: LIDOCAINE 5% PATCH TOPICAL SCH (08:14)
[2020-11-11] MEDS: TOPIRAMATE 25 MG TAB PO SCH ×2 (08:15→20:25)
[2020-11-11] MEDS: LINAGLIPTIN 5 MG TABLET PO SCH (08:16)
[2020-11-11] MEDS: COLCHICINE 0.6 MG EACH PO SCH (08:16)
[2020-11-11] MEDS: OXcarbazepine 150 MG TAB PO SCH ×2 (08:16→20:25)
[2020-11-11 11:56] LABS: Glucose,Whole Blood 159 mg/dL (75-99)
--- NOTE | 2020-11-11 12:33 | P.PN ---
Subjective Progress Note Date: 11/11/20 Principal diagnosis: Acute on chronic hypoxic respiratory failure secondary to covid 19 pneumonitis. This is a 58-year-old female patient with COVID 19 related pneumonia. The kailey ent has developed progressive worsening and hypoxic respiratory failure secondary to coronavirus/COVID 19 pneumonia. The patient was treated with a combination of treatment including Remdesivir and steroids and the patient was also treated with colchicine. The patient was given anticoagulation with Lovenox. With progressive respiratory failure, the patient was placed on high flow oxygen and subsequently the patient was switched to BiPAP for respiratory support. The patient was initially a DNR/DNI status and somewhat at a later stage she changed her mind and she was consented for short-term intubation mechanical ventilation if needed. She did not want any form of long-term aspiratory support, tracheostomy and feeding tube. The patient currently is on a BiPAP at a pressure of 12/6 cm of water and FiO2 of 100%. Chest x-ray has not shown any significant improvement. For now, the patient is on BiPAP for respiratory support, she is receiving colchicine 0.6 mg by mouth twice a day. She is on Lovenox 40 mg subcu every 12 hours. She is on Levemir insulin 15 units at bedtime in addition to a sliding scale coverage. She is receiving albuterol HFA 4 puffs every 4 hours when necessary and his Symbicort on a 160/4.52 puffs twice a day. The patient is also on IV Solu-Medrol 60 mg every 6 hours. The patient is also on antibiotic coverage with vancomycin. The patient is on BiPAP at a pressure of 12/6 cm of water with an FiO2 of 100%. The chest x-ray shows stable findings. While on the BiPAP, she is able to generate a tidal volume as high as 800. Nevertheless she is quite tachypneic and her minute ventilation is around 18-20 L per minute. Her pulse ox is order of 91%. Even while being given her medication, she seems to be desaturating out of it. Otherwise, she is hemodynamically stable. No chest pain. No altered mentation. No fever. No chills. She was unable to eat and she is currently on TPN for nutritional support. On 11/07/2020, the patient is being seen in follow-up. The patient was intubated yesterday and postintubation she became profoundly hypoxic and based on that, the appropriate ventilator changes were done. I ultimately put the patient on an assist-control mode at the rate of 78 with a tidal volume of 350 and the PEEP was at 20 with an FiO2 of 100%. Subsequently, we were able to wean down the PEEP down to 75%. The most recent blood gases was a 75% FiO2 showed a pH of 7.33 with a pCO2 of 51 and pO2 of 139. She is currently in a prone body positioning. I'm going to liver back to supine today after being thrown for the past 16 hours. No chest x-rays available from today. Meanwhile, the patient has a peak airway pressure that around 33 while she is been in a prone body position. On today's evaluation, she is sedated with propofol which is currently running at 45 micrograms per KG per minute. She is still on TPN for nutritional support. She is hemodynamically stable on no pressors. IV fluids are all. She has a PICC line and she also has an arterial line. On today's blood work, his CRP level is up to 179, pro calcitonin from yesterday was 0.1, her LDH level is at 782, there was a causative 12.6 with a hemoglobin of 12.6. Platelet count is at 96. Renal function stable with a creatinine of 0.1. The net fluid balance over the past 24 hours is been negative to 45 mL. The patient remains on Decadron 20 mg IV, colchicine 0.6 mg by mouth twice a day, she is also on zinc sulfate and multivitamins. Antibiotic coverage is with IV cefepime. Lovenox Discontinued yesterday as the patient developed coffee-ground emesis and this was also noted in her OG. Based on that, no enteral feeding has been done and the patient is still on TPN for nutritional support. Patient was reevaluated today on 11/08/2020, patient remains in the ICU, intubated and mechanically ventilated. She is presently on assist control mode of mechanical ventilation, tidal volume is 350 rate of 28 FiO2 60% PEEP was 18 and I cut it down to 16. ABG showed a pO2 of 106 pCO2 of 67 pH of 7.30. Patient is now in prone position. She remains on propofol at 45 mcg/kg/m, she is also on TPN. She is not requiring any pressors. Chest x-ray showed significant interstitial edema involving the right lung, more so than the left lung. CBC showed WBC count of 14.4, hemoglobin is 11.4 d-dimer is 1.90, electrolytes and renal profile are normal LDH is 745 C-reactive protein 83.1 blood sugar is 168. Patient is on TPN. Continues to have some coffee-ground material in the orogastric tube. Patient has been intermittently in prone position for about 16 hours. And this morning she was still in prone position from earlier today. After reviewing the ABG, I recommended cutting down the PEEP from 18-16 and kept her on 60% FiO2. Patient remains on Decadron, colchicine, she is also on zinc and multivitamins. Remains on cefepime, Lovenox is presently on hold. Reevaluated today on 11/09/2020, patient remains in the ICU, intubated and mechanically ventilated. She is back in a prone position this morning. Her ventilator settings are assist control rate of 28 tidal volume 350 FiO2 is 60% PEEP is 16 after reviewing her ABG, I cut down her PEEP down to 14 and her FiO2 is down to 55%. ABG showed a pO2 of 114 pCO2 of 67 pH of 7.31. Patient remains on propofol at 45 mcg/kg/m, she is also on TPN which is presently on hold and the patient is receiving enteral feeding. Patient was intubated on 11/06/2020, and she has been intermittently late in prone positioning. Chest x-ray continues to show bilateral infiltrates, right more so than left. CBC is relatively normal. Basic metabolic profile is normal. Renal profile is normal. C-reactive protein is 36 and her LDH is 593, both are trending down Patient was reevaluated today on 11/10/2020, patient remains in the ICU, remains intubated and mechanically ventilated. Her ventilator settings are assist control rate of 28, tidal volume 350 FiO2 is down to 55% this morning and the PEEP is down to 12. ABG on 60% and PEEP of 14 showed a pO2 of 109 pCO2 of 59 pH of 7.38. Patient remains on TPN, up to goal, propofol at 45 mcg/kg/m, I will fluid at KVO. Pressure is 25 her plateau pressure is 20 chest x-ray continues to show diffuse interstitial infiltrates bilaterally. Right more so than left. Today after reevaluating the patient, I have recommended cutting down the PEEP to 12 and FiO2 down to 50%. I also increased the flow to 75 L/m. Patient is now in prone position, however when she is in supine position, I have instructed holding sedation, and assessment of mental status today this afternoon. Chest x-ray was reviewed CBC is relatively normal ABG was reviewed. Basic metabolic profile is normal and her renal profile is normal. Liver profile is relatively unremarkable except for slightly elevated transaminases. Patient remains on the Coumadin 19 cocktail, she is also on cefepime. Colchicine Decadron 6 mg IV push daily, insulin Trileptal, Protonix, and zinc. Is also on cefepime which I will continue for the time being. Patient was reevaluated today on 11/11/2020, remains in the ICU, intubated and mechanically ventilated, intermittently in prone position for 16 hours every day. Today she is back in prone position, however considering the patient's improvement in oxygenation, I was able to cut down her FiO2 to 50%, and her PEEP is down to 12. Patient was awakened yesterday, sedation was placed on hold, and the patient was appropriate according to the nurse taking care of the patient, and she was following very simple instructions. Chest x-ray continues to show diffuse bilateral infiltrates. Patient remains on TPN, and she'll be transitioned today to enteral feeding. ABG showed a pO2 of 97 pCO2 of 59 pH of 7.37. Her ventilator settings at present are FiO2 of 50% PEEP of 12 tidal volume is 350 rate is 28. Remains on propofol at 40 mcg/kg/m. CBC is relatively low-normal normal, hemoglobin is 9.9. Electrolytes are normal renal profile is normal. Inflammatory markers have trended down significantly. LDH is 505 and C-reactive protein is 31.2 Objective - Vital Signs Vital signs: Vital Signs Temp 99.7 F H 11/11/20 08:00 Pulse 92 11/11/20 11:00 Resp 28 H 11/11/20 11:00 BP 104/50 11/11/20 11:00 Pulse Ox 92 L 11/11/20 11:34 Intake & Output 11/10/20 11/11/20 11/11/20 18:59 06:59 18:59 Intake Total 900.439 0877.102 315 Output Total 1130 610 800 Balance -103.958 4697.102 -485 Weight 86.1 kg 86.1 kg Intake: IV 716 746 315 .9 NS pressure bag 36 36 15 0.9NS 240 240 100 TPN 440 470 200 Intake, IV Titration 277.151 6596.102 Amount Mvi, Adult No.4 with Vit 1031 K 10 ml Trace (Conc-1Ml/ Dose) 1 ml Parenteral Electrolytes 20 ml In Amino Acid 4.25%-D10w 1, 000 ml @ 40 mls/hr IV . Q24H R[facility] Rx#:[id number] propofoL 500 mg In Empty 147.812 188.102 Bag 1 bag @ Titrate IV . Q0M RAE Rx#:[id number] Output: Gastric Drainage 300 150 Urine 830 610 650 Other: Voiding Method Indwelling Catheter Indwelling Catheter Indwelling Catheter # Bowel Movements 2 1 ABP, PAP, CO, CI - Last Documented Arterial Blood Pressure 115/39 - Exam Physical Exam: Revealed a 60-year-old female in prone position, sedated, on propofol, not requiring any paralytic agents. Head: Atraumatic, normocephalic. HEENT:[Neck is supple.] [No neck masses.] [No thyromegaly.] [No JVD.] brandon,eomi, orogastric tube and endotracheal tube are intact. No neck masses, no JVD. Chest: [Symmetrical chest expansion, crackles and rhonchi noted bilaterally..] Cardiac Exam: [Normal S1 and S2, no S3 gallop, no murmur.] Abdomen: [Obese, Soft, nontender, no megaly, no rebound, no guarding, normal bowel sounds.] Extremities: [No clubbing, no edema, no cyanosis.] Skin: No rashes. Neurological Exam: Could not assess, patient is intubated, and sedated on propofol. Patient was appropriate yesterday off propofol and she followed simple instructions based on the nurses findings Psychiatric: Could not be assessed - Labs CBC & Chem 7: 11/11/20 04:15 11/11/20 04:15 Labs: Abnormal Lab Results - Last 24 Hours (Table) 11/10/20 11/10/20 11/10/20 Range/Units 12:55 16:19 20:07 WBC (3.8-10.6) k/uL RBC (3.80-5.40) m/uL Hgb (11.4-16.0) gm/dL Hct (34.0-46.0) % ABG pCO2 (35-45) mmHg ABG HCO3 (21-25) mmol/L ABG Total CO2 (19-24) mmol/L ABG O2 Saturation (94-97) % Carbon Dioxide (22-30) mmol/L BUN (7-17) mg/dL Glucose (74-99) mg/dL POC Glucose (mg/dL) 190 H 201 H 145 H (75-99) mg/dL Calcium (8.4-10.2) mg/dL AST (14-36) U/L ALT (4-34) U/L C-Reactive Protein (<10.0) mg/L Total Protein (6.3-8.2) g/dL Albumin (3.5-5.0) g/dL 11/10/20 11/11/20 11/11/20 Range/Units 23:55 04:13 04:15 WBC (3.8-10.6) k/uL RBC (3.80-5.40) m/uL Hgb (11.4-16.0) gm/dL Hct (34.0-46.0) % ABG pCO2 (35-45) mmHg ABG HCO3 (21-25) mmol/L ABG Total CO2 (19-24) mmol/L ABG O2 Saturation (94-97) % Carbon Dioxide 35 H (22-30) mmol/L BUN 26 H (7-17) mg/dL Glucose 160 H (74-99) mg/dL POC Glucose (mg/dL) 123 H 160 H (75-99) mg/dL Calcium 8.2 L (8.4-10.2) mg/dL AST 46 H (14-36) U/L ALT 56 H (4-34) U/L C-Reactive Protein 31.2 H (<10.0) mg/L Total Protein 5.2 L (6.3-8.2) g/dL Albumin 2.5 L (3.5-5.0) g/dL 11/11/20 11/11/20 11/11/20 Range/Units 04:15 04:57 07:44 WBC 11.4 H (3.8-10.6) k/uL RBC 3.42 L (3.80-5.40) m/uL Hgb 9.9 L (11.4-16.0) gm/dL Hct 31.0 L (34.0-46.0) % ABG pCO2 59 H (35-45) mmHg ABG HCO3 34 H (21-25) mmol/L ABG Total CO2 36 H (19-24) mmol/L ABG O2 Saturation 98.3 H (94-97) % Carbon Dioxide (22-30) mmol/L BUN (7-17) mg/dL Glucose (74-99) mg/dL POC Glucose (mg/dL) 134 H (75-99) mg/dL Calcium (8.4-10.2) mg/dL AST (14-36) U/L ALT (4-34) U/L C-Reactive Protein (<10.0) mg/L Total Protein (6.3-8.2) g/dL Albumin (3.5-5.0) g/dL 11/11/20 Range/Units 11:55 WBC (3.8-10.6) k/uL RBC (3.80-5.40) m/uL Hgb (11.4-16.0) gm/dL Hct (34.0-46.0) % ABG pCO2 (35-45) mmHg ABG HCO3 (21-25) mmol/L ABG Total CO2 (19-24) mmol/L ABG O2 Saturation (94-97) % Carbon Dioxide (22-30) mmol/L BUN (7-17) mg/dL Glucose (74-99) mg/dL POC Glucose (mg/dL) 159 H (75-99) mg/dL Calcium (8.4-10.2) mg/dL AST (14-36) U/L ALT (4-34) U/L C-Reactive Protein (<10.0) mg/L Total Protein (6.3-8.2) g/dL Albumin (3.5-5.0) g/dL Microbiology - Last 24 Hours (Table) 11/08/20 20:58 Blood Culture - Preliminary Blood No Growth after 48 hours Assessment and Plan Assessment: Impression: Acute on chronic hypoxic respiratory failure secondary to acute covid 19 pneumonitis. Patient has been treated with multiple regimens for her pneumonitis, continues to improve slowly, hence I recommended today no more pronating, also recommending cutting down the FiO2 to 50%. Keep the PEEP at 12. Elevated transaminases secondary to Covid 19 infection, improving Type 2 diabetes. History of dyslipidemia. Obstructive sleep apnea syndrome. History of bipolar disorder. Acute upper GI bleeding with coffee-ground emesis, most likely secondary to erosive gastritis. Resolved. Remains on Protonix. Recommendation: Continue ventilatory support. FiO2 down to 50% PEEP remains at 12. No more pronating position. Consider starting enteral feeding and discontinue TPN. Daily assessment of mental status and possibly weaning parameters off sedat ion/propofol. Keep Lovenox on hold for now because of her GI bleed. Continue cefepime. Continue GI and DVT prophylaxis. Continue Decadron at 6 mg IV push daily. Continue colchicine 0.6 mg daily Continue home medications. Patient remains extremely ill and prognosis is extremely poor and guarded. But nonetheless patient is showing slow but definite improvement CODE STATUS has been changed to DO NOT RESUSCITATE Critical care time is over 30 minutes. Time with Patient: Greater than 30
[2020-11-11] MEDS: CLEVIDIPINE BUTYRATE 25 MG in EMPTY BAG 1 BAG IV SCH (12:44)
[2020-11-11] MEDS: FAT EMULSION 20% 250 ML IV SCH (15:14)
--- NOTE | 2020-11-11 15:25 | XR ---
EXAMINATION TYPE: XR chest 1V portable DATE OF EXAM: 11/11/2020 COMPARISON: 11/10/2020 HISTORY: SOB, Follow Up FINDINGS: Indwelling tubes and catheters are unchanged. Diffuse coarse infiltrates noted without significant interval change. Stable appearance of the cardio-mediastinal structures at this time. Pleural effusion unchanged. IMPRESSION: 1. Stable portable chest. Clinical correlation and follow up until resolution is recommended.
--- NOTE | 2020-11-11 15:32 | PN ---
PROGRESS NOTE DATE OF SERVICE: 11/11/2020 REASON FOR FOLLOWUP: Pneumonia. INTERVAL HISTORY: The patient is currently afebrile. The patient is hemodynamically stable, not on any pressor support. FiO2 is currently down to 50%. She is on 12 of PEEP. No significant purulent secretion reported currently and no diarrhea has been reported or any other change in her clinical condition. PHYSICAL EXAMINATION: Blood pressure 104/50 with a pulse of 80, temperature 99.2. She is 92% on 50% FiO2. General description is a middle-aged female intubated on the vent. RESPIRATORY SYSTEM: Unlabored breathing with bilateral rhonchi. HEART: S1, S2. Regular. ABDOMEN: Soft. No tenderness. LABS: Hemoglobin is 9.8, white count 11.4, BUN of 26, creatinine 0.66. Blood culture has been negative. Sputum is negative. DIAGNOSTIC IMPRESSION AND PLAN: Patient with acute respiratory failure which is multifactorial in this patient who completed her treatment for COVID-19 infection, now with concern for possible bacterial pneumonia, covered with empiric cefepime. Culture has been negative. She seems to have shown clinical response. Continue current treatment protocol and monitor clinical course closely. MMODL / IJN: [id number] /
[2020-11-11 15:46] LABS: Glucose,Whole Blood 217 mg/dL (75-99)
[2020-11-11 20:18] LABS: Glucose,Whole Blood 130 mg/dL (75-99)
[2020-11-11] MEDS: clonazePAM 0.5 MG TAB PO SCH (20:23)
[2020-11-11] MEDS: INSULIN DETEMIR (LEVEMIR) 100 UNIT/ML SYR SQ SCH (20:23)
[2020-11-11] MEDS: ARIPiprazole 10 MG TAB PO SCH (20:39)
--- NOTE | 2020-11-11 23:44 | P.PN ---
Subjective From records: Patient is intubated and cannot provide information This is a 60-year-old patient who follows with Yajaira Barber. Chronic stable medical conditions include diabetes, fibromyalgia, GERD, hypertension, hyperlipidemia, osteoarthritis, obstructive sleep apnea. She is on 3 L of nasal cannula home. Night has been getting it more often lately. Diabetic peripheral neuropathy, obstructive sleep apnea does not use CPAP, chronic kidney disease, arthritis in multiple joints, bipolar schizoaffective disorder. Patient presents of 1 week of increasing shortness of breath. Cough. Slight phlegm. Has had fever for 2 days. Decrease appetite some headaches no loss of taste or smell. No diarrhea. Body aches all over. Patient tested for COVID 19 in the ER. Still somewhat tired rundown. Admitted with bilateral COVID 19 pneumonia, acute hypoxic respiratory failure, acute COPD exacerbation. Patient was started on dexamethasone, Lovenox, Remdesivir, vitamin C vitamin D and zinc. Pulmonary was consulted. Patient has been requiring BiPAP. On October 28 because of increasing oxygen requirement patient is moved to the ICU. Patient was started on IV cefepime and vancomycin. Given convalescent plasma on October 30. PICC line placed-started on TPN and lipids. intubated November 06 Today-ICU: On the ventilator: FiO2 -60, PEEP of 16. Drips include propofol, TPN. Telemetry-sinus rhythm. 11/09/2020 Patient remains in the ICU, intubated and sedated, she is minimally for bilateral Covid pneumonia Patient is not doing well and her prognosis looks guarded She is exposed to Marla hour of prone position with little improvement and blood gases today Daughter today May the patient DO NOT RESUSCITATE per staff Pulmonary/critical care team on the case 11/10/2020 pt remains in the ICU intubated and sedated and she is followed closely by pulmonary/critical care team who manage her vent setting. Patient remains in critical condition and slowly to progress. She spends about 16 hours in the prone position, however in supine position she is undergoing weaning off sedation to assess her mental status. Suctioning showing moderate amount of whitish secretion, we will send for sputum culture. Also patient has Almeida cat heter. She is still running fever around 100. She is tachypneic. Blood pressure is stable with no need for pressors. With that showed leukocytosis of 13 K today. While creatinine and electrolytes are normal. LDH was normal yesterday and C-reactive protein trending down to 36.3. D-dimer is 1.92 days ago. Patient is not on anticoagulation because of possible upper GI bleed 11/11/2020 Patient remains intubated and sedated in the ICU with pulmonary/critical care team on the case, they help with vent management She has some improvement where she was awakened, showing understanding and follo w some commands Patient remains febrile at 99.8. She is tachycardic, tachypneic, saturating 90% on FiO2 50%, Slight improvement from 55% to day earlier WBC is 11.4 K. Hemoglobin stable at 9.9. LDH still normal at 505, C-reactive protein is still low at 31.2 Chest x-ray showing diffuse coarse infiltrates without significant change She's a still on cefepime per ID team. Basically for bacterial pneumonia. Also she is on dexamethasone. Also she is getting TPN Review of systems: N/a Active Medications Generic Name Dose Route Start Last Admin Trade Name Freq PRN Reason Stop Dose Admin Acetaminophen 650 mg 10/22/20 14:24 11/05/20 00:06 Acetaminophen Tab 325 Mg Tab PO 650 mg Q6HR PRN Administration Fever and/ or Pain Albuterol Sulfate 4 puff 10/21/20 23:00 11/10/20 11:18 Albuterol Hfa Inhaler INHALATION 4 puff Q4H RAE Administration Aripiprazole 10 mg 10/21/20 21:00 11/09/20 21:19 Aripiprazole 10 Mg Tab PO 10 mg HS RAE Administration Aripiprazole 20 mg 10/21/20 11:45 11/10/20 08:29 Aripiprazole 20 Mg Tab PO 20 mg DAILY RAE Administration Artificial Tears 1 drops 10/29/20 17:56 10/29/20 18:47 Artificial Tears-Hypromellose Drops 15 Ml Btl BOTH EYES 1 drops QID PRN Administration Dry Eye(s) Ascorbic Acid 500 mg 10/21/20 23:00 11/10/20 08:25 Ascorbic Acid 500 Mg Tab PO 500 mg DAILY RAE Administration Atorvastatin Calcium 20 mg 10/22/20 09:00 11/10/20 08:26 Atorvastatin 20 Mg Tab PO 20 mg DAILY RAE Administration Budesonide/Formoterol Fumarate 2 puff 10/21/20 11:43 11/10/20 07:38 Symbicort 160-4.5 Mcg Inhaler INHALATION 2 puff RT-BID RAE Administration Chlorhexidine Gluconate 15 ml 11/06/20 21:00 11/10/20 08:24 Chlorhexidine Gluconate 15 Ml Cup MUCOUS MEM 15 ml BID RAE Administration Cholecalciferol 100 mcg 10/21/20 23:00 11/10/20 08:25 Cholecalciferol 25 Mcg (1000 Iu) Tablet PO 100 mcg DAILY RAE Administration Clonazepam 0.5 mg 11/04/20 21:00 11/09/20 21:18 Clonazepam 0.5 Mg Tab PO 0.5 mg HS RAE Administration Colchicine 0.6 mg 11/09/20 09:00 11/10/20 08:27 Colchicine 0.6 Mg Each PO 0.6 mg DAILY RAE Administration Dexamethasone Sodium Phosphate 6 mg 11/08/20 09:00 11/10/20 08:24 Dexamethasone Sod Phosphate 10 Mg/Ml 1 Ml Vial IV 6 mg DAILY RAE Administration Cefepime HCl 2 gm/ Sodium 100 mls @ 25 mls/hr 10/29/20 09:00 11/10/20 08:26 Chloride IVPB 25 mls/hr Q12HR RAE Administration Fat Emulsion Intravenous 250 mls @ 20.833 mls/hr 10/30/20 15:00 11/09/20 16:32 Lipids 20% IV 20.833 mls/hr MoWeFr RAE Administration Propofol 500 mg/ IV Solution 50 mls @ 0 mls/hr 11/06/20 11:45 11/10/20 05:40 IV 45 mcg/kg/min .Q0M RAE 23.112 mls/hr Administration Protocol Titrate Clevidipine 25 mg/ IV Solution 50 mls @ 2 mls/hr 11/06/20 12:15 11/09/20 14:49 IV Not Given .Q24H RAE Protocol 1 MG/HR Parenteral Vitamin Supplement 1,031 mls @ 40 mls/hr 11/07/20 21:00 11/09/20 22:16 10 ml/ Zinc/Copper/Manganese/ IV 40 mls/hr Selenium 1 ml/ Parenteral .Q24H RAE Administration Electrolytes 20 ml/ Amino Acids/Dextrose Insulin Aspart 0 unit 11/05/20 12:00 11/10/20 08:31 Insulin Aspart (Novolog) 100 Unit/Ml Vial SQ 4 unit Q4H RAE Administration Protocol Insulin Detemir 36 unit 11/08/20 21:00 11/09/20 21:19 Insulin Detemir (Levemir) 100 Unit/Ml Syr SQ 36 unit HS RAE Administration Lamotrigine 150 mg 10/21/20 11:45 11/10/20 08:25 Lamotrigine 100 Mg Tab PO 150 mg BID RAE Administration Lidocaine 1 patch 11/04/20 10:45 11/10/20 08:26 Lidocaine 5% Patch TOPICAL 1 patch DAILY RAE Administration Linagliptin 5 mg 10/21/20 11:45 11/10/20 08:30 Linagliptin 5 Mg Tablet PO 5 mg DAILY RAE Administration Losartan Potassium 50 mg 10/21/20 11:45 11/10/20 08:30 Losartan 50 Mg Tab PO 50 mg DAILY RAE Administration Meclizine HCl 25 mg 10/23/20 14:37 Meclizine 25 Mg Tab PO Q8H PRN Nausea And Vomiting Miscellaneous Information 1 each 10/24/20 16:53 Magnesium Replacement Protocol 1 Each Misc MISCELLANE DAILY PRN Per Protocol Protocol Miscellaneous Information 1 each 10/24/20 16:53 Potassium Replacement Protocol 1 Each Misc MISCELLANE DAILY PRN Per Protocol Protocol Morphine Sulfate 2 mg 11/05/20 09:59 11/08/20 04:39 Morphine Sulfate 2 Mg/Ml Syringe IVP 2 mg Q4H PRN Administration Pain/Discomfort Oxcarbazepine 150 mg 10/21/20 11:45 11/10/20 08:27 Oxcarbazepine 150 Mg Tab PO 150 mg BID RAE Administration Pantoprazole Sodium 40 mg 11/06/20 11:00 11/10/20 08:24 Pantoprazole 40 Mg/10 Ml Vial IVP 40 mg DAILY RAE Administration Pregabalin 100 mg 10/21/20 11:45 11/10/20 08:26 Pregabalin 100 Mg Cap PO 100 mg BID RAE Administration Sumatriptan Succinate 100 mg 10/21/20 11:43 Sumatriptan Succinate 50 Mg Tab PO BID PRN Migraine Headache Topiramate 50 mg 10/21/20 11:45 11/10/20 08:28 Topiramate 25 Mg Tab PO 50 mg BID RAE Administration Zinc Sulfate 220 mg 10/21/20 23:00 11/10/20 08:26 Zinc Sulfate 220 Mg Cap PO 220 mg DAILY RAE Administration Objective - Vital Signs Vital signs: Vital Signs Temp 99.7 F H 11/11/20 08:00 Pulse 100 11/11/20 09:00 Resp 30 H 11/11/20 09:00 BP 104/50 11/11/20 09:00 Pulse Ox 95 11/11/20 09:00 Intake & Output 11/10/20 11/11/20 11/11/20 18:59 06:59 18:59 Intake Total 517.999 5164.102 63 Output Total 1130 610 200 Balance -746.261 1456.102 -137 Weight 86.1 kg Intake: IV 716 746 63 .9 NS pressure bag 36 36 3 0.9NS 240 240 20 TPN 440 470 40 Intake, IV Titration 137.781 3990.102 Amount Mvi, Adult No.4 with Vit 1031 K 10 ml Trace (Conc-1Ml/ Dose) 1 ml Parenteral Electrolytes 20 ml In Amino Acid 4.25%-D10w 1, 000 ml @ 40 mls/hr IV . Q24H RAE Rx#:[id number] propofoL 500 mg In Empty 147.812 188.102 Bag 1 bag @ Titrate IV . Q0M RAE Rx#:[id number] Output: Gastric Drainage 300 150 Urine 830 610 50 Other: Voiding Method Indwelling Catheter Indwelling Catheter Indwelling Catheter # Bowel Movements 2 1 ABP, PAP, CO, CI - Last Documented Arterial Blood Pressure 135/49 - Exam -GENERAL: The patient is intubated and sedated. HEENT: Pupils are round and equally reacting to light. EOMI. No scleral icterus. No conjunctival pallor. Normocephalic, atraumatic. No pharyngeal erythema. No thyromegaly. CARDIOVASCULAR: S1 and S2 present. No murmurs, rubs, or gallops. PULMONARY: Chest is clear to auscultation, no wheezing or crackles. ABDOMEN: Soft, nontender, nondistended, normoactive bowel sounds. No palpable organomegaly. MUSCULOSKELETAL: No joint swelling or deformity. EXTREMITIES: No cyanosis, clubbing, or pedal edema. NEUROLOGICAL: Gross neurological examination did not reveal any focal deficits. SKIN: No rashes. no petechiae. - Labs CBC & Chem 7: 11/11/20 04:15 11/11/20 04:15 Labs: Abnormal Lab Results - Last 24 Hours (Table) 11/06/20 11/10/20 11/10/20 Range/Units 05:40 12:55 16:19 WBC (3.8-10.6) k/uL RBC (3.80-5.40) m/uL Hgb (11.4-16.0) gm/dL Hct (34.0-46.0) % ABG pCO2 (35-45) mmHg ABG HCO3 (21-25) mmol/L ABG Total CO2 (19-24) mmol/L ABG O2 Saturation (94-97) % Carbon Dioxide (22-30) mmol/L BUN (7-17) mg/dL Glucose (74-99) mg/dL POC Glucose (mg/dL) 190 H 201 H (75-99) mg/dL Calcium (8.4-10.2) mg/dL AST (14-36) U/L ALT (4-34) U/L C-Reactive Protein (<10.0) mg/L Total Protein (6.3-8.2) g/dL Albumin (3.5-5.0) g/dL Procalcitonin 0.10 H (0.02-0.09) ng/mL 11/10/20 11/10/20 11/11/20 Range/Units 20:07 23:55 04:13 WBC (3.8-10.6) k/uL RBC (3.80-5.40) m/uL Hgb (11.4-16.0) gm/dL Hct (34.0-46.0) % ABG pCO2 (35-45) mmHg ABG HCO3 (21-25) mmol/L ABG Total CO2 (19-24) mmol/L ABG O2 Saturation (94-97) % Carbon Dioxide (22-30) mmol/L BUN (7-17) mg/dL Glucose (74-99) mg/dL POC Glucose (mg/dL) 145 H 123 H 160 H (75-99) mg/dL Calcium (8.4-10.2) mg/dL AST (14-36) U/L ALT (4-34) U/L C-Reactive Protein (<10.0) mg/L Total Protein (6.3-8.2) g/dL Albumin (3.5-5.0) g/dL Procalcitonin (0.02-0.09) ng/mL 11/11/20 11/11/20 11/11/20 Range/Units 04:15 04:15 04:57 WBC 11.4 H (3.8-10.6) k/uL RBC 3.42 L (3.80-5.40) m/uL Hgb 9.9 L (11.4-16.0) gm/dL Hct 31.0 L (34.0-46.0) % ABG pCO2 59 H (35-45) mmHg ABG HCO3 34 H (21-25) mmol/L ABG Total CO2 36 H (19-24) mmol/L ABG O2 Saturation 98.3 H (94-97) % Carbon Dioxide 35 H (22-30) mmol/L BUN 26 H (7-17) mg/dL Glucose 160 H (74-99) mg/dL POC Glucose (mg/dL) (75-99) mg/dL Calcium 8.2 L (8.4-10.2) mg/dL AST 46 H (14-36) U/L ALT 56 H (4-34) U/L C-Reactive Protein 31.2 H (<10.0) mg/L Total Protein 5.2 L (6.3-8.2) g/dL Albumin 2.5 L (3.5-5.0) g/dL Procalcitonin (0.02-0.09) ng/mL 11/11/20 Range/Units 07:44 WBC (3.8-10.6) k/uL RBC (3.80-5.40) m/uL Hgb (11.4-16.0) gm/dL Hct (34.0-46.0) % ABG pCO2 (35-45) mmHg ABG HCO3 (21-25) mmol/L ABG Total CO2 (19-24) mmol/L ABG O2 Saturation (94-97) % Carbon Dioxide (22-30) mmol/L BUN (7-17) mg/dL Glucose (74-99) mg/dL POC Glucose (mg/dL) 134 H (75-99) mg/dL Calcium (8.4-10.2) mg/dL AST (14-36) U/L ALT (4-34) U/L C-Reactive Protein (<10.0) mg/L Total Protein (6.3-8.2) g/dL Albumin (3.5-5.0) g/dL Procalcitonin (0.02-0.09) ng/mL Microbiology - Last 24 Hours (Table) 11/08/20 20:58 Blood Culture - Preliminary Blood No Growth after 48 hours Assessment and Plan Assessment: -Bilateral COVID 19 pneumonia causing sepsis. Slow to respond. Has received Remdesivir. Convalescent plasma. on dexamethasone -Also being covered for secondary bacterial pneumonia infection with IV cefepime, patient showing marginal improvement -Acute COPD exacerbation in an [id number] to respond -acute hypoxic respiratory failure, requiring BiPAP-; intubated November 06. Slow to respond on the ventilator -Upper GI bleed, hold anticoagulation -Diabetes mellitus 2, uncontrolled with hyperglycemia from steroids. Increase Levemir to 36 units -Chronic fibromyalgia -GERD -Essential hypertension, on Cozaar -Hyperlipidemia, on Lipitor -Obstructive sleep apnea does not use CPAP -Diabetic peripheral neuropathy -Primary osteoarthritis of multiple joint -TPN and lipids DVT prophylaxis: Mechanical, hold Lovenox for possible GI bleed GI prophylaxis: PPI Prognosis guarded No code
[2020-11-12 00:15] LABS: Glucose,Whole Blood 130 mg/dL (75-99)
[2020-11-12] MEDS: INSULIN ASPART (NovoLOG) 100 UNIT/ML VIAL SQ SCH ×6 (00:17→20:12)
[2020-11-12] MEDS ORDERED: MVI, ADULT NO.4 WITH VIT K 10 ML, TRACE (CONC-1ML/DOSE) 1 ML, PARENTERAL ELECTROLYTES 2... IV SCH ×4 (01:30)
[2020-11-12] MEDS: ALBUTEROL HFA INHALER INHALATION SCH ×6 (02:58→23:13)
[2020-11-12 05:01] LABS: Glucose,Whole Blood 144 mg/dL (75-99)
[2020-11-12 05:13] LABS: Basophils % (A) 0 %; Eosinophils # (A) 0.3 k/uL (0-0.7); Eosinophils % (A) 3 %; HCT 30.8 % (34.0-46.0); HGB 9.8 gm/dL (11.4-16.0); Lymphocytes # (A) 0.9 k/uL (1.0-4.8); Lymphocytes % (A) 9 %; MCV 90.7 fL (80.0-100.0); Mean Platelet Volume 8.3; Monocytes # (A) 0.4 k/uL (0-1.0); Monocytes % (A) 4 %; Neutrophils # (A) 8.9 k/uL (1.3-7.7); Neutrophils % (A) 84 %; Platelet Count 240 k/uL (150-450); RBC 3.39 m/uL (3.80-5.40); RDW 15.1 % (11.5-15.5); WBC 10.6 k/uL (3.8-10.6)
[2020-11-12 05:18] LABS: ABG Base Excess 8.1 mmol/L; ABG HCO3 33 mmol/L (21-25); ABG Oxygen Saturation 94.7 % (94-97); ABG PCO2 53 mmHg (35-45); ABG PO2 67 mmHg (83-108); ABG TCO2 34 mmol/L (19-24); Allen Test Performed? Yes
[2020-11-12 05:22] LABS: ALT 55 U/L (4-34); AST 47 U/L (14-36); African American GFR (CKD) >90 (>60 ml/min/1.73 sqM); Albumin 2.7 g/dL (3.5-5.0); Alkaline Phosphatase 69 U/L (38-126); Anion Gap 2 mmol/L; Blood Urea Nitrogen 29 mg/dL (7-17); Calcium 8.6 mg/dL (8.4-10.2); Carbon Dioxide 33 mmol/L (22-30); Chloride 102 mmol/L (98-107); Glucose 145 mg/dL (74-99); Non-African American GFR(CKD) >90 (>60 ml/min/1.73 sqM); Sodium 137 mmol/L (137-145); Total Bilirubin 0.6 mg/dL (0.2-1.3); Total Protein 5.4 g/dL (6.3-8.2)
--- NOTE | 2020-11-12 07:57 | XR ---
EXAMINATION TYPE: XR chest 1V portable DATE OF EXAM: 11/12/2020 Comparison: 11/11/2020 Clinical History: 60-year-old female Tube placement Findings: ET tube satisfactory. NG tube courses below the diaphragm. Left CVC tip at the lower SVC level. Heart normal size. PFO closure device. Diffuse interstitial opacities persist. More patchy and confluent o pacities especially in the periphery of the right lung and at the lung bases. Slight improving aerati on on the left. Impression: Persistent diffuse interstitial infiltrates and patchy peripheral and basilar infiltrates with slight improving aeration on the left.
[2020-11-12 08:07] LABS: Glucose,Whole Blood 131 mg/dL (75-99)
[2020-11-12] MEDS: CEFEPIME 2 GM in SODIUM CHLORIDE 0.9% 100 ML IVPB SCH ×2 (09:46→20:15)
[2020-11-12] MEDS: CHLORHEXIDINE GLUCONATE 15 ML CUP MUCOUS MEM SCH ×2 (09:47→20:14)
[2020-11-12] MEDS: PANTOPRAZOLE 40 MG/10 ML VIAL IVP SCH (09:52)
[2020-11-12] MEDS: LINAGLIPTIN 5 MG TABLET PO SCH (09:57)
[2020-11-12] MEDS: LOSARTAN 50 MG TAB PO SCH (09:59)
[2020-11-12] MEDS: PREGABALIN 100 MG CAP PO SCH ×2 (09:59→20:28)
[2020-11-12] MEDS: OXcarbazepine 150 MG TAB PO SCH ×2 (09:59→20:14)
[2020-11-12] MEDS: ZINC SULFATE 220 MG CAP PO SCH (10:00)
[2020-11-12] MEDS: TOPIRAMATE 25 MG TAB PO SCH ×2 (10:00→20:16)
[2020-11-12] MEDS: CHOLECALCIFEROL 25 MCG (1000 IU) TABLET PO SCH (10:01)
[2020-11-12] MEDS: ATORVASTATIN 20 MG TAB PO SCH (10:01)
[2020-11-12] MEDS: ASCORBIC ACID 500 MG TAB PO SCH (10:01)
[2020-11-12] MEDS: COLCHICINE 0.6 MG EACH PO SCH (10:02)
[2020-11-12] MEDS: lamoTRIgine 100 MG TAB PO SCH ×2 (10:02→20:13)
[2020-11-12] MEDS: DEXAMETHASONE SOD PHOSPHATE 10 MG/ML 1 ML VIAL IV SCH (10:02)
[2020-11-12] MEDS: LIDOCAINE 5% PATCH TOPICAL SCH (10:03)
--- NOTE | 2020-11-12 11:40 | P.PN ---
Subjective Progress Note Date: 11/12/20 Principal diagnosis: Acute on chronic hypoxic respiratory failure secondary to covid 19 pneumonitis. This is a 58-year-old female patient with COVID 19 related pneumonia. The kailey ent has developed progressive worsening and hypoxic respiratory failure secondary to coronavirus/COVID 19 pneumonia. The patient was treated with a combination of treatment including Remdesivir and steroids and the patient was also treated with colchicine. The patient was given anticoagulation with Lovenox. With progressive respiratory failure, the patient was placed on high flow oxygen and subsequently the patient was switched to BiPAP for respiratory support. The patient was initially a DNR/DNI status and somewhat at a later stage she changed her mind and she was consented for short-term intubation mechanical ventilation if needed. She did not want any form of long-term aspiratory support, tracheostomy and feeding tube. The patient currently is on a BiPAP at a pressure of 12/6 cm of water and FiO2 of 100%. Chest x-ray has not shown any significant improvement. For now, the patient is on BiPAP for respiratory support, she is receiving colchicine 0.6 mg by mouth twice a day. She is on Lovenox 40 mg subcu every 12 hours. She is on Levemir insulin 15 units at bedtime in addition to a sliding scale coverage. She is receiving albuterol HFA 4 puffs every 4 hours when necessary and his Symbicort on a 160/4.52 puffs twice a day. The patient is also on IV Solu-Medrol 60 mg every 6 hours. The patient is also on antibiotic coverage with vancomycin. The patient is on BiPAP at a pressure of 12/6 cm of water with an FiO2 of 100%. The chest x-ray shows stable findings. While on the BiPAP, she is able to generate a tidal volume as high as 800. Nevertheless she is quite tachypneic and her minute ventilation is around 18-20 L per minute. Her pulse ox is order of 91%. Even while being given her medication, she seems to be desaturating out of it. Otherwise, she is hemodynamically stable. No chest pain. No altered mentation. No fever. No chills. She was unable to eat and she is currently on TPN for nutritional support. On 11/07/2020, the patient is being seen in follow-up. The patient was intubated yesterday and postintubation she became profoundly hypoxic and based on that, the appropriate ventilator changes were done. I ultimately put the patient on an assist-control mode at the rate of 78 with a tidal volume of 350 and the PEEP was at 20 with an FiO2 of 100%. Subsequently, we were able to wean down the PEEP down to 75%. The most recent blood gases was a 75% FiO2 showed a pH of 7.33 with a pCO2 of 51 and pO2 of 139. She is currently in a prone body positioning. I'm going to liver back to supine today after being thrown for the past 16 hours. No chest x-rays available from today. Meanwhile, the patient has a peak airway pressure that around 33 while she is been in a prone body position. On today's evaluation, she is sedated with propofol which is currently running at 45 micrograms per KG per minute. She is still on TPN for nutritional support. She is hemodynamically stable on no pressors. IV fluids are all. She has a PICC line and she also has an arterial line. On today's blood work, his CRP level is up to 179, pro calcitonin from yesterday was 0.1, her LDH level is at 782, there was a causative 12.6 with a hemoglobin of 12.6. Platelet count is at 96. Renal function stable with a creatinine of 0.1. The net fluid balance over the past 24 hours is been negative to 45 mL. The patient remains on Decadron 20 mg IV, colchicine 0.6 mg by mouth twice a day, she is also on zinc sulfate and multivitamins. Antibiotic coverage is with IV cefepime. Lovenox Discontinued yesterday as the patient developed coffee-ground emesis and this was also noted in her OG. Based on that, no enteral feeding has been done and the patient is still on TPN for nutritional support. Patient was reevaluated today on 11/08/2020, patient remains in the ICU, intubated and mechanically ventilated. She is presently on assist control mode of mechanical ventilation, tidal volume is 350 rate of 28 FiO2 60% PEEP was 18 and I cut it down to 16. ABG showed a pO2 of 106 pCO2 of 67 pH of 7.30. Patient is now in prone position. She remains on propofol at 45 mcg/kg/m, she is also on TPN. She is not requiring any pressors. Chest x-ray showed significant interstitial edema involving the right lung, more so than the left lung. CBC showed WBC count of 14.4, hemoglobin is 11.4 d-dimer is 1.90, electrolytes and renal profile are normal LDH is 745 C-reactive protein 83.1 blood sugar is 168. Patient is on TPN. Continues to have some coffee-ground material in the orogastric tube. Patient has been intermittently in prone position for about 16 hours. And this morning she was still in prone position from earlier today. After reviewing the ABG, I recommended cutting down the PEEP from 18-16 and kept her on 60% FiO2. Patient remains on Decadron, colchicine, she is also on zinc and multivitamins. Remains on cefepime, Lovenox is presently on hold. Reevaluated today on 11/09/2020, patient remains in the ICU, intubated and mechanically ventilated. She is back in a prone position this morning. Her ventilator settings are assist control rate of 28 tidal volume 350 FiO2 is 60% PEEP is 16 after reviewing her ABG, I cut down her PEEP down to 14 and her FiO2 is down to 55%. ABG showed a pO2 of 114 pCO2 of 67 pH of 7.31. Patient remains on propofol at 45 mcg/kg/m, she is also on TPN which is presently on hold and the patient is receiving enteral feeding. Patient was intubated on 11/06/2020, and she has been intermittently late in prone positioning. Chest x-ray continues to show bilateral infiltrates, right more so than left. CBC is relatively normal. Basic metabolic profile is normal. Renal profile is normal. C-reactive protein is 36 and her LDH is 593, both are trending down Patient was reevaluated today on 11/10/2020, patient remains in the ICU, remains intubated and mechanically ventilated. Her ventilator settings are assist control rate of 28, tidal volume 350 FiO2 is down to 55% this morning and the PEEP is down to 12. ABG on 60% and PEEP of 14 showed a pO2 of 109 pCO2 of 59 pH of 7.38. Patient remains on TPN, up to goal, propofol at 45 mcg/kg/m, I will fluid at KVO. Pressure is 25 her plateau pressure is 20 chest x-ray continues to show diffuse interstitial infiltrates bilaterally. Right more so than left. Today after reevaluating the patient, I have recommended cutting down the PEEP to 12 and FiO2 down to 50%. I also increased the flow to 75 L/m. Patient is now in prone position, however when she is in supine position, I have instructed holding sedation, and assessment of mental status today this afternoon. Chest x-ray was reviewed CBC is relatively normal ABG was reviewed. Basic metabolic profile is normal and her renal profile is normal. Liver profile is relatively unremarkable except for slightly elevated transaminases. Patient remains on the Coumadin 19 cocktail, she is also on cefepime. Colchicine Decadron 6 mg IV push daily, insulin Trileptal, Protonix, and zinc. Is also on cefepime which I will continue for the time being. Patient was reevaluated today on 11/11/2020, remains in the ICU, intubated and mechanically ventilated, intermittently in prone position for 16 hours every day. Today she is back in prone position, however considering the patient's improvement in oxygenation, I was able to cut down her FiO2 to 50%, and her PEEP is down to 12. Patient was awakened yesterday, sedation was placed on hold, and the patient was appropriate according to the nurse taking care of the patient, and she was following very simple instructions. Chest x-ray continues to show diffuse bilateral infiltrates. Patient remains on TPN, and she'll be transitioned today to enteral feeding. ABG showed a pO2 of 97 pCO2 of 59 pH of 7.37. Her ventilator settings at present are FiO2 of 50% PEEP of 12 tidal volume is 350 Patient was reevaluated today on 11/12/2020, patient remains in the ICU, remains intubated and mechanically ventilated. She is not in prone position today anymore, her ventilator settings are assist control rate 28 tidal volume is 350 FiO2 50% and PEEP of 12. ABG showed a pO2 of 67 pCO2 of 53 pH of 7.40. Patient is on IV fluid at KVO, propofol at 35 mcg/kg/m, she is also on enteral feeding, and TPN is off. Chest x-ray is showing slight improvement especially on the left side. Patient is arousable even with propofol on board, and she'll follow simple instructions like wiggling toes and squeezing hands. However she is noted to be generally weak, and considering his overall picture I believe the patient has critical illness polyneuropathy. Hence I am feeling that the patient will not wean easily, and tracheostomy and PEG tube placement would be appropriate at this time. We will consult general surgery for possible tracheostomy in the next 24 hours CBC is relatively normal ABG as noted above electrolytes are normal renal profile is normal. Liver enzymes are normalizing. Objective - Vital Signs Vital signs: Vital Signs Temp 100.1 F H 11/12/20 08:00 Pulse 94 11/12/20 11:00 Resp 28 H 11/12/20 11:00 BP 104/50 11/11/20 15:00 Pulse Ox 92 L 11/12/20 11:00 Intake & Output 11/11/20 11/12/20 11/12/20 18:59 06:59 18:59 Intake Total 1014.780 801.597 363 Output Total 1485 385 375 Balance -470.220 416.597 -12 Weight 86.1 kg 87.7 kg Intake: IV 799 463 215 .9 NS pressure bag 39 33 15 0.9NS 260 220 100 Cefepime 2 gm In Sodium 100 100 Chloride 0.9% 100 ml @ 25 mls/hr IVPB Q12HR RAE Rx #:[id number] Fat Emulsion 20% 250 ml @ 60 20.833 mls/hr IV MoWeFr RAE Rx#:[id number] TPN 440 110 Intake, IV Titration 215.780 68.597 Amount propofoL 500 mg In Empty 215.780 68.597 Bag 1 bag @ Titrate IV . Q0M RAE Rx#:[id number] Tube Feeding 180 148 Other 90 Output: Gastric Drainage 150 Urine 1335 385 375 Other: Voiding Method Indwelling Catheter Indwelling Catheter Indwelling Catheter # Bowel Movements 1 ABP, PAP, CO, CI - Last Documented Arterial Blood Pressure 133/51 - Exam Physical Exam: Revealed a 60-year-old female intubated, in no distress. Head: Atraumatic, normocephalic. HEENT:[Neck is supple.] [No neck masses.] [No thyromegaly.] [No JVD.] brandon,eomi, orogastric tube and endotracheal tube are intact. No neck masses, no JVD. Chest: [Symmetrical chest expansion, crackles and rhonchi noted bilaterally..] Cardiac Exam: [Normal S1 and S2, no S3 gallop, no murmur.] Abdomen: [Obese, Soft, nontender, no megaly, no rebound, no guarding, normal bowel sounds.] Extremities: [No clubbing, no edema, no cyanosis.] Skin: No rashes. Neurological Exam: Arousable, follows eyes upon verbal commands, follows simple instructions like wiggling toes and squeezing hands, however the patient is profoundly weak. Psychiatric: Depressed mood, blunt affect, could not fully assess mental status but seems to follow simple instructions. - Labs CBC & Chem 7: 11/12/20 05:00 11/12/20 05:00 Labs: Abnormal Lab Results - Last 24 Hours (Table) 11/11/20 11/11/20 11/11/20 Range/Units 11:00 11:55 15:45 RBC (3.80-5.40) m/uL Hgb (11.4-16.0) gm/dL Hct (34.0-46.0) % Neutrophils # (1.3-7.7) k/uL Lymphocytes # (1.0-4.8) k/uL ABG pCO2 (35-45) mmHg ABG pO2 (83-108) mmHg ABG HCO3 (21-25) mmol/L ABG Total CO2 (19-24) mmol/L Carbon Dioxide (22-30) mmol/L BUN (7-17) mg/dL Glucose (74-99) mg/dL POC Glucose (mg/dL) 159 H 217 H (75-99) mg/dL AST (14-36) U/L ALT (4-34) U/L Total Protein (6.3-8.2) g/dL Albumin (3.5-5.0) g/dL Coronavirus (PCR) Detected A (Not Detected) 11/11/20 11/12/20 11/12/20 Range/Units 20:17 00:15 04:59 RBC (3.80-5.40) m/uL Hgb (11.4-16.0) gm/dL Hct (34.0-46.0) % Neutrophils # (1.3-7.7) k/uL Lymphocytes # (1.0-4.8) k/uL ABG pCO2 (35-45) mmHg ABG pO2 (83-108) mmHg ABG HCO3 (21-25) mmol/L ABG Total CO2 (19-24) mmol/L Carbon Dioxide (22-30) mmol/L BUN (7-17) mg/dL Glucose (74-99) mg/dL POC Glucose (mg/dL) 130 H 130 H 144 H (75-99) mg/dL AST (14-36) U/L ALT (4-34) U/L Total Protein (6.3-8.2) g/dL Albumin (3.5-5.0) g/dL Coronavirus (PCR) (Not Detected) 11/12/20 11/12/20 11/12/20 Range/Units 05:00 05:00 05:12 RBC 3.39 L (3.80-5.40) m/uL Hgb 9.8 L (11.4-16.0) gm/dL Hct 30.8 L (34.0-46.0) % Neutrophils # 8.9 H (1.3-7.7) k/uL Lymphocytes # 0.9 L (1.0-4.8) k/uL ABG pCO2 53 H (35-45) mmHg ABG pO2 67 L (83-108) mmHg ABG HCO3 33 H (21-25) mmol/L ABG Total CO2 34 H (19-24) mmol/L Carbon Dioxide 33 H (22-30) mmol/L BUN 29 H (7-17) mg/dL Glucose 145 H (74-99) mg/dL POC Glucose (mg/dL) (75-99) mg/dL AST 47 H (14-36) U/L ALT 55 H (4-34) U/L Total Protein 5.4 L (6.3-8.2) g/dL Albumin 2.7 L (3.5-5.0) g/dL Coronavirus (PCR) (Not Detected) 11/12/20 Range/Units 08:05 RBC (3.80-5.40) m/uL Hgb (11.4-16.0) gm/dL Hct (34.0-46.0) % Neutrophils # (1.3-7.7) k/uL Lymphocytes # (1.0-4.8) k/uL ABG pCO2 (35-45) mmHg ABG pO2 (83-108) mmHg ABG HCO3 (21-25) mmol/L ABG Total CO2 (19-24) mmol/L Carbon Dioxide (22-30) mmol/L BUN (7-17) mg/dL Glucose (74-99) mg/dL POC Glucose (mg/dL) 131 H (75-99) mg/dL AST (14-36) U/L ALT (4-34) U/L Total Protein (6.3-8.2) g/dL Albumin (3.5-5.0) g/dL Coronavirus (PCR) (Not Detected) Microbiology - Last 24 Hours (Table) 11/08/20 20:58 Blood Culture - Preliminary Blood No Growth after 72 hours Assessment and Plan Assessment: Impression: Acute on chronic hypoxic respiratory failure secondary to acute covid 19 pneumonitis. Still requiring mechanical ventilation. Will be difficult to wean this patient considering her critical illness polyneuropathy. Elevated transaminases secondary to Covid 19 infection, improving Type 2 diabetes. History of dyslipidemia. Obstructive sleep apnea syndrome. History of bipolar disorder. Acute upper GI bleeding with coffee-ground emesis, most likely secondary to erosive gastritis. Resolved. Remains on Protonix. Critical illness polyneuropathy with generalized weakness. Recommendation: Continue ventilatory support. Keep FiO2 at 50% and keep PEEP of 12. Surgical consultation for possible tracheostomy and PEG tube placement. Continue nutritional support/enteral feedings. Daily assessment of mental status , not quite ready for weaning trials. Keep Lovenox on hold for now because of her GI bleed. Continue cefepime. Continue GI and DVT prophylaxis. Continue Decadron at 6 mg IV push daily. Continue colchicine 0.6 mg daily Daily assessment of mental status on lower dose of propofol. Patient remains extremely ill and prognosis is extremely poor and guarded. But nonetheless patient is showing slow but definite improvement Critical care time is over 30 minutes. Time with Patient: Greater than 30
[2020-11-12 12:11] LABS: Glucose,Whole Blood 139 mg/dL (75-99)
--- NOTE | 2020-11-12 14:24 | P.GSCN ---
History of Present Illness Consult date: 11/12/20 History of present illness: CHIEF COMPLAINT: Shortness of breath HISTORY OF PRESENT ILLNESS: This is a 60-year-old female with a past medical history of COPD, diabetes mellitus, hyperlipidemia, hypertension and fibromyalgia. Patient admitted to the hospital on 10/21/2020 with the diagnoses Covid 19 pneumonia. She has undergone treatment for over 19 related pneumonia. Patient remains in the ICU and is intubated and on mechanical ventilation. Patient is considerably weak. Critical care service feels that patient will be difficult to wean considering her critical illness polyneuropathy. Surgical consult was placed for tracheostomy and PEG tube placement. Patient seen and examined with Dr. Herrera PAST MEDICAL HISTORY: See list. PAST SURGICAL HISTORY: See list. MEDICATIONS: See list. ALLERGIES: See list. SOCIAL HISTORY: No illicit drug use. REVIEW OF SYSTEMS: CONSTITUTIONAL: Denies fever or chills. HEENT: Denies blurred vision, vision changes, or eye pain. Denies hemoptysis CARDIOVASCULAR: Denies chest pain or pressure. RESPIRATORY: No shortness of breath. GASTROINTESTINAL: See HPI for pertinent findings HEMATOLOGIC: Denies bleeding disorders. GENITOURINARY: Denies any blood in urine or increased urinary frequency. SKIN: Denies pruitis. Denies rash. PHYSICAL EXAM: VITAL SIGNS: Reviewed GENERAL: Well-developed in no acute distress. HEENT: No sclera icterus. Extraocular movements grossly intact. Moist buccal mucosa. Head is atraumatic, normocephalic. No nasal drainage. ABDOMEN: Soft. Nondistended. Nontender NEUROLOGIC: Patient is intubated and is able to follow a few commands. LABORATORY DATA: WBC 10.6 Hgb 9.8 Albumin 2.7 AST 47 ALT 55 IMAGING: ASSESSMENT: 1. Acute on chronic hypoxic respiratory failure secondary to Covid 19 pneumonitis 2. Generalized weakness 3. Severe protein calorie malnutrition PLAN: -Patient scheduled for tracheostomy and PEG tube placement tomorrow, 11/13/[address] Herrera Thank you for this consult Physician Hydraulic Chair Assembler note has been reviewed by physician. Signing provider agrees with the documented findings, assessment, and plan of care. Past Medical History Past Medical History: Asthma, COPD, Diabetes Mellitus, Fibromyalgia, GERD/Reflux, Hyperlipidemia, Hypertension, Osteoarthritis (OA), Pneumonia, Respiratory Disorder, Sleep Apnea/CPAP/BIPAP Additional Past Medical History / Comment(s): Pt tested covid + 10/21/20 [facility]. Other hx: Chronic respiratory failure/O2 at 3L/NC at HS but has been wearing more often lately, bronchitis, pulse ox works best on her earlobe, NIDDM type II, neuropathy bilateral feet, CHI many years ago and migraines since, KIRA-does not wear cpap, CKD-monitoring labs, elevated liver function labs being monitored, vertigo, arthritis in multiple joints, post op pulmonary edema with hernia repair, benign colon polyps, frequent night time urination, UTIs. History of Any Multi-Drug Resistant Organisms: None Reported Past Surgical History: Breast Surgery, Hernia Repair, Joint Replacement, Orthopedic Surgery, Tonsillectomy Additional Past Surgical History / Comment(s): "hole in heart repaired", bilateral knee arthroscopies, total R knee, total R hip, L foot bunionectomy, laparascopies, R ovarian cyst removed, colonoscopies/polypectomies, bilateral eye surgery for strabismus, umbilical hernia repair, surgery for deviated septum. Past Anesthesia/Blood Transfusion Reactions: No Reported Reaction Additional Past Anesthesia/Blood Transfusion Reaction / Comm: PT STATES THAT PULSE OX DOES NOT WORK ON FINGER-NEEDS TO BE PUT ON EAR FOR CORRECT READING Smoking Status: Former smoker - Past Family History Sister(s) Family Medical History: Cancer Father Family Medical History: Congestive Heart Failure (CHF) Additional Family Medical History / Comment(s): Father of CHF. Mother Family Medical History: Cancer, Seizure Disorder Additional Family Medical History / Comment(s): Mother from gallbladder cancer. Medications and Allergies Home Medications Medication Instructions Recorded Confirmed Type Atorvastatin [Lipitor] 20 mg PO DAILY tab 04/30/15 10/21/20 Rx Losartan [Cozaar] 50 mg PO DAILY 08/13/15 10/21/20 History Pregabalin [Lyrica] 100 mg PO BID 01/07/16 10/21/20 History Fluticasone/Salmeterol [Advair Hfa 2 puff INHALATION RT-BID 11/18/16 10/21/20 History 115-21 Mcg Inhaler] Meclizine [Antivert] 25 mg PO Q8H PRN 11/18/16 10/21/20 History OXcarbazepine [Trileptal] 150 mg PO BID 11/18/16 10/21/20 History Potassium Chloride [Klor-Con 10] 10 meq PO TID 11/18/16 10/21/20 History lamoTRIgine [LaMICtal] 150 mg PO BID 11/18/16 10/21/20 History ARIPiprazole [Abilify] 10 mg PO HS 10/21/20 10/21/20 History ARIPiprazole [Abilify] 20 mg PO DAILY 10/21/20 10/21/20 History Albuterol Sulfate [Accuneb] 0.63 mg INHALATION RT-TID PRN 10/21/20 10/21/20 History Albuterol Sulfate [Ventolin HFA] 2 puff INHALATION RT-QID PRN 10/21/20 10/21/20 History Chlorthalidone 50 mg PO DAILY 10/21/20 10/21/20 History SUMAtriptan SUCCINATE [Imitrex] 100 mg PO BID PRN 10/21/20 10/21/20 History Topiramate [Topamax] 50 mg PO BID 10/21/20 10/21/20 History clonazePAM [KlonoPIN] 0.5 mg PO BID 10/21/20 10/21/20 History dexAMETHasone [Dexamethasone] 2 mg PO Q8H PRN 10/21/20 10/21/20 History oxyCODONE-APAP 10-325MG [Percocet 1 tab PO Q6H PRN 10/21/20 10/21/20 History 10-325 mg] sitaGLIPtin [Januvia] 50 mg PO DAILY 10/21/20 10/21/20 History Allergies Allergy/AdvReac Type Severity Reaction Status Date / Time ibuprofen [From Motrin] AdvReac Vomiting Verified 10/21/20 10:20 Surgical - Exam Vital Signs Temp Pulse Resp BP Pulse Ox 103 F H 114 H 22 122/62 87 L 10/21/20 08:22 10/21/20 08:22 10/21/20 08:22 10/21/20 08:22 10/21/20 08:22 Results - Labs 11/12/20 05:00 11/12/20 05:00 Abnormal Lab Results - Last 24 Hours (Table) 11/11/20 11/11/20 11/11/20 Range/Units 11:00 15:45 20:17 RBC (3.80-5.40) m/uL Hgb (11.4-16.0) gm/dL Hct (34.0-46.0) % Neutrophils # (1.3-7.7) k/uL Lymphocytes # (1.0-4.8) k/uL ABG pCO2 (35-45) mmHg ABG pO2 (83-108) mmHg ABG HCO3 (21-25) mmol/L ABG Total CO2 (19-24) mmol/L Carbon Dioxide (22-30) mmol/L BUN (7-17) mg/dL Glucose (74-99) mg/dL POC Glucose (mg/dL) 217 H 130 H (75-99) mg/dL AST (14-36) U/L ALT (4-34) U/L Total Protein (6.3-8.2) g/dL Albumin (3.5-5.0) g/dL Coronavirus (PCR) Detected A (Not Detected) 11/12/20 11/12/20 11/12/20 Range/Units 00:15 04:59 05:00 RBC (3.80-5.40) m/uL Hgb (11.4-16.0) gm/dL Hct (34.0-46.0) % Neutrophils # (1.3-7.7) k/uL Lymphocytes # (1.0-4.8) k/uL ABG pCO2 (35-45) mmHg ABG pO2 (83-108) mmHg ABG HCO3 (21-25) mmol/L ABG Total CO2 (19-24) mmol/L Carbon Dioxide 33 H (22-30) mmol/L BUN 29 H (7-17) mg/dL Glucose 145 H (74-99) mg/dL POC Glucose (mg/dL) 130 H 144 H (75-99) mg/dL AST 47 H (14-36) U/L ALT 55 H (4-34) U/L Total Protein 5.4 L (6.3-8.2) g/dL Albumin 2.7 L (3.5-5.0) g/dL Coronavirus (PCR) (Not Detected) 11/12/20 11/12/20 11/12/20 Range/Units 05:00 05:12 08:05 RBC 3.39 L (3.80-5.40) m/uL Hgb 9.8 L (11.4-16.0) gm/dL Hct 30.8 L (34.0-46.0) % Neutrophils # 8.9 H (1.3-7.7) k/uL Lymphocytes # 0.9 L (1.0-4.8) k/uL ABG pCO2 53 H (35-45) mmHg ABG pO2 67 L (83-108) mmHg ABG HCO3 33 H (21-25) mmol/L ABG Total CO2 34 H (19-24) mmol/L Carbon Dioxide (22-30) mmol/L BUN (7-17) mg/dL Glucose (74-99) mg/dL POC Glucose (mg/dL) 131 H (75-99) mg/dL AST (14-36) U/L ALT (4-34) U/L Total Protein (6.3-8.2) g/dL Albumin (3.5-5.0) g/dL Coronavirus (PCR) (Not Detected) 11/12/20 Range/Units 12:09 RBC (3.80-5.40) m/uL Hgb (11.4-16.0) gm/dL Hct (34.0-46.0) % Neutrophils # (1.3-7.7) k/uL Lymphocytes # (1.0-4.8) k/uL ABG pCO2 (35-45) mmHg ABG pO2 (83-108) mmHg ABG HCO3 (21-25) mmol/L ABG Total CO2 (19-24) mmol/L Carbon Dioxide (22-30) mmol/L BUN (7-17) mg/dL Glucose (74-99) mg/dL POC Glucose (mg/dL) 139 H (75-99) mg/dL AST (14-36) U/L ALT (4-34) U/L Total Protein (6.3-8.2) g/dL Albumin (3.5-5.0) g/dL Coronavirus (PCR) (Not Detected) Microbiology - Last 24 Hours (Table) 11/08/20 20:58 Blood Culture - Preliminary Blood No Growth after 72 hours Diabetes panel 11/12/20 Range/Units 05:00 Sodium 137 (137-145) mmol/L Potassium 4.0 (3.5-5.1) mmol/L Chloride 102 (98-107) mmol/L Carbon Dioxide 33 H (22-30) mmol/L BUN 29 H (7-17) mg/dL Creatinine 0.54 (0.52-1.04) mg/dL Glucose 145 H (74-99) mg/dL Calcium 8.6 (8.4-10.2) mg/dL AST 47 H (14-36) U/L ALT 55 H (4-34) U/L Alkaline Phosphatase 69 (38-126) U/L Total Protein 5.4 L (6.3-8.2) g/dL Albumin 2.7 L (3.5-5.0) g/dL Calcium panel 11/12/20 Range/Units 05:00 Calcium 8.6 (8.4-10.2) mg/dL Phosphorus 3.0 (2.5-4.5) mg/dL Albumin 2.7 L (3.5-5.0) g/dL Pituitary panel 11/12/20 Range/Units 05:00 Sodium 137 (137-145) mmol/L Potassium 4.0 (3.5-5.1) mmol/L Chloride 102 (98-107) mmol/L Carbon Dioxide 33 H (22-30) mmol/L BUN 29 H (7-17) mg/dL Creatinine 0.54 (0.52-1.04) mg/dL Glucose 145 H (74-99) mg/dL Calcium 8.6 (8.4-10.2) mg/dL Adrenal panel 11/12/20 Range/Units 05:00 Sodium 137 (137-145) mmol/L Potassium 4.0 (3.5-5.1) mmol/L Chloride 102 (98-107) mmol/L Carbon Dioxide 33 H (22-30) mmol/L BUN 29 H (7-17) mg/dL Creatinine 0.54 (0.52-1.04) mg/dL Glucose 145 H (74-99) mg/dL Calcium 8.6 (8.4-10.2) mg/dL Total Bilirubin 0.6 (0.2-1.3) mg/dL AST 47 H (14-36) U/L ALT 55 H (4-34) U/L Alkaline Phosphatase 69 (38-126) U/L Total Protein 5.4 L (6.3-8.2) g/dL Albumin 2.7 L (3.5-5.0) g/dL
[2020-11-12] MEDS: SYMBICORT 160-4.5 MCG INHALER INHALATION SCH ×2 (14:26→19:06)
[2020-11-12 17:01] LABS: Glucose,Whole Blood 196 mg/dL (75-99)
[2020-11-12] MEDS: CLEVIDIPINE BUTYRATE 25 MG in EMPTY BAG 1 BAG IV SCH (19:54)
[2020-11-12 20:06] LABS: Glucose,Whole Blood 126 mg/dL (75-99)
[2020-11-12] MEDS: ARIPiprazole 10 MG TAB PO SCH (20:13)
[2020-11-12] MEDS: clonazePAM 0.5 MG TAB PO SCH (20:13)
--- NOTE | 2020-11-12 20:23 | P.PN ---
Subjective Progress Note Date: 11/12/20 Principal diagnosis: Acute hypoxic respiratory failure secondary to COVID-19 pneumonia This is a 60-year-old patient who follows with Yajaira Barber. Chronic stable medical conditions include diabetes, fibromyalgia, GERD, hypertension, hyperlipidemia, osteoarthritis, obstructive sleep apnea. She is on 3 L of nasal cannula home. Night has been getting it more often lately. Diabetic peripheral neuropathy, obstructive sleep apnea does not use CPAP, chronic kidney disease, arthritis in multiple joints, bipolar schizoaffective disorder. Patient presents of 1 week of increasing shortness of breath. Cough. Slight phlegm. Has had fever for 2 days. Decrease appetite some headaches no loss of taste or smell. No diarrhea. Body aches all over. Patient tested for COVID 19 in the ER. Still somewhat tired rundown. Admitted with bilateral COVID 19 pneumonia, acute hypoxic respiratory failure, acute COPD exacerbation. Patient was started on dexamethasone, Lovenox, Remdes ivir, vitamin C vitamin D and zinc. Pulmonary was consulted. Patient has been requiring BiPAP. On October 28 because of increasing oxygen requirement patient is moved to the ICU. Patient was started on IV cefepime and vancomycin. Given convalescent plasma on October 30. PICC line placed-started on TPN and lipids. intubated November 06 Today-ICU: On the ventilator: FiO2 -60, PEEP of 16. Drips include propofol, TPN. Telemetry-sinus rhythm. 11/09/2020 Patient remains in the ICU, intubated and sedated, she is minimally for bilateral Covid pneumonia Patient is not doing well and her prognosis looks guarded She is exposed to Marla hour of prone position with little improvement and blood gases today Daughter today May the patient DO NOT RESUSCITATE per staff Pulmonary/critical care team on the case 11/10/2020 pt remains in the ICU intubated and sedated and she is followed closely by pulmonary/critical care team who manage her vent setting. Patient remains in critical condition and slowly to progress. She spends about 16 hours in the prone position, however in supine position she is undergoing weaning off sedation to assess her mental status. Suctioning showing moderate amount of whitish secretion, we will send for sputum culture. Also patient has Almeida catheter. She is still running fever around 100. She is tachypneic. Blood pressure is stable with no need for pressors. With that showed leukocytosis of 13 K today. While creatinine and electrolytes are normal. LDH was normal yesterday and C-reactive protein trending down to 36.3. D-dimer is 1.92 days ago. Patient is not on anticoagulation because of possible upper GI bleed 11/11/2020 Patient remains intubated and sedated in the ICU with pulmonary/critical care team on the case, they help with vent management She has some improvement where she was awakened, showing understanding and follow some commands Patient remains febrile at 99.8. She is tachycardic, tachypneic, saturating 90% on FiO2 50%, Slight improvement from 55% to day earlier WBC is 11.4 K. Hemoglobin stable at 9.9. LDH still normal at 505, C-reactive protein is still low at 31.2 Chest x-ray showing diffuse coarse infiltrates without significant change She's a still on cefepime per ID team. Basically for bacterial pneumonia. Also she is on dexamethasone. Also she is getting TPN 11/12/2020 Patient is currently intubated and on mechanical ventilator. Patient is also sedated. Continued on dexamethasone and antibiotics in the form of cefepime. Blood cultures and urine cultures have been negative. Chest x-ray showed persistent diffuse interstitial infiltrates and patchy peripheral and basilar infiltrates with slight improving aeration on the left. Patient is able to wiggle her toes and squeezing hands. Possible critical illness polyneuropathy is being considered. Pulmonary is recommending tracheostomy and PEG tube placement. TPN is on hold. General surgery was consulted. Laboratory showed WBC 10.6, hemoglobin 9.8 and platelets 240 Sodium 137, potassium 4.0, bicarb is 33 BUN 29 and creatinine 0.54 Blood sugar is controlled and currently insulin regimen. Current medications reviewed. Active Medications Acetaminophen (Acetaminophen Tab 325 Mg Tab) 650 mg PO Q6HR PRN PRN Reason: Fever and/ or Pain Last Admin: 11/05/20 00:06 Dose: 650 mg Documented by: Albuterol Sulfate (Albuterol Hfa Inhaler) 4 puff INHALATION Q4H RAE Last Admin: 11/12/20 19:05 Dose: 4 puff Documented by: Aripiprazole (Aripiprazole 10 Mg Tab) 10 mg PO HS RAE Last Admin: 11/11/20 20:39 Dose: 10 mg Documented by: Aripiprazole (Aripiprazole 20 Mg Tab) 20 mg PO DAILY [facility] Last Admin: 11/12/20 09:46 Dose: 20 mg Documented by: Artificial Tears (Artificial Tears-Hypromellose Drops 15 Ml Btl) 1 drops BOTH EYES QID PRN PRN Reason: Dry Eye(s) Last Admin: 10/29/20 18:47 Dose: 1 drops Documented by: Ascorbic Acid (Ascorbic Acid 500 Mg Tab) 500 mg PO DAILY [facility] Last Admin: 11/12/20 10:01 Dose: 500 mg Documented by: Atorvastatin Calcium (Atorvastatin 20 Mg Tab) 20 mg PO DAILY [facility] Last Admin: 11/12/20 10:01 Dose: 20 mg Documented by: Budesonide/Formoterol Fumarate (Symbicort 160-4.5 Mcg Inhaler) 2 puff INHALATION RT-BID [facility] Last Admin: 11/12/20 19:06 Dose: 2 puff Documented by: Chlorhexidine Gluconate (Chlorhexidine Gluconate 15 Ml Cup) 15 ml MUCOUS MEM BID [facility] Last Admin: 11/12/20 09:47 Dose: 15 ml Documented by: Cholecalciferol (Cholecalciferol 25 Mcg (1000 Iu) Tablet) 100 mcg PO DAILY [facility] Last Admin: 11/12/20 10:01 Dose: 100 mcg Documented by: Clonazepam (Clonazepam 0.5 Mg Tab) 0.5 mg PO HS [facility] Last Admin: 11/11/20 20:23 Dose: 0.5 mg Documented by: Dexamethasone Sodium Phosphate (Dexamethasone Sod Phosphate 10 Mg/Ml 1 Ml Vial) 6 mg IV DAILY [facility] Last Admin: 11/12/20 10:02 Dose: 6 mg Documented by: Cefepime HCl 2 gm/ Sodium (Chloride) 100 mls @ 25 mls/hr IVPB Q12HR [facility] Last Admin: 11/12/20 09:46 Dose: 25 mls/hr Documented by: Propofol 500 mg/ IV Solution 50 mls @ 0 mls/hr IV .Q0M [facility]; Protocol Last Admin: 11/12/20 16:53 Dose: 45 mcg/kg/min, 23.679 mls/hr Documented by: Clevidipine 25 mg/ IV Solution 50 mls @ 2 mls/hr IV .Q24H [facility]; Protocol Last Admin: 11/12/20 19:54 Dose: Not Given Documented by: Insulin Aspart (Insulin Aspart (Novolog) 100 Unit/Ml Vial) 0 unit SQ Q4H [facility]; Protocol Last Admin: 11/12/20 17:04 Dose: 5 unit Documented by: Insulin Detemir (Insulin Detemir (Levemir) 100 Unit/Ml Syr) 36 unit SQ HS [facility] Last Admin: 11/11/20 20:23 Dose: 36 unit Documented by: Lamotrigine (Lamotrigine 100 Mg Tab) 150 mg PO BID [facility] Last Admin: 11/12/20 10:02 Dose: 150 mg Documented by: Lidocaine (Lidocaine 5% Patch) 1 patch TOPICAL DAILY [facility] Last Admin: 11/12/20 10:03 Dose: 1 patch Documented by: Linagliptin (Linagliptin 5 Mg Tablet) 5 mg PO DAILY [facility] Last Admin: 11/12/20 09:57 Dose: 5 mg Documented by: Losartan Potassium (Losartan 50 Mg Tab) 50 mg PO DAILY [facility] Last Admin: 11/12/20 09:59 Dose: 50 mg Documented by: Meclizine HCl (Meclizine 25 Mg Tab) 25 mg PO Q8H PRN PRN Reason: Nausea And Vomiting Miscellaneous Information (Magnesium Replacement Protocol 1 Each Misc) 1 each MISCELLANE DAILY PRN; Protocol PRN Reason: Per Protocol Miscellaneous Information (Potassium Replacement Protocol 1 Each Misc) 1 each MISCELLANE DAILY PRN; Protocol PRN Reason: Per Protocol Morphine Sulfate (Morphine Sulfate 2 Mg/Ml Syringe) 2 mg IVP Q4H PRN PRN Reason: Pain/Discomfort Last Admin: 11/08/20 04:39 Dose: 2 mg Documented by: Oxcarbazepine (Oxcarbazepine 150 Mg Tab) 150 mg PO BID [facility] Last Admin: 11/12/20 09:59 Dose: 150 mg Documented by: Pantoprazole Sodium (Pantoprazole 40 Mg/10 Ml Vial) 40 mg IVP DAILY [facility] Last Admin: 11/12/20 09:52 Dose: 40 mg Documented by: Pregabalin (Pregabalin 100 Mg Cap) 100 mg PO BID [facility] Last Admin: 11/12/20 09:59 Dose: 100 mg Documented by: Sumatriptan Succinate (Sumatriptan Succinate 50 Mg Tab) 100 mg PO BID PRN PRN Reason: Migraine Headache Topiramate (Topiramate 25 Mg Tab) 50 mg PO BID [facility] Last Admin: 11/12/20 10:00 Dose: 50 mg Documented by: Zinc Sulfate (Zinc Sulfate 220 Mg Cap) 220 mg PO DAILY [facility] Last Admin: 11/12/20 10:00 Dose: 220 mg Documented by: Objective - Vital Signs Vital signs: Vital Signs Temp 99.2 F 11/12/20 12:00 Pulse 91 11/12/20 12:00 Resp 25 H 11/12/20 12:00 BP 104/50 11/11/20 15:00 Pulse Ox 91 L 11/12/20 12:00 Intake & Output 11/11/20 11/12/20 11/12/20 18:59 06:59 18:59 Intake Total 1014.780 834.937 523 Output Total 1485 385 650 Balance -470.220 449.937 -127 Weight 86.1 kg 87.7 kg Intake: IV 799 463 261 .9 NS pressure bag 39 33 21 0.9NS 260 220 140 Cefepime 2 gm In Sodium 100 100 Chloride 0.9% 100 ml @ 25 mls/hr IVPB Q12HR [facility] Rx #:[id number] Fat Emulsion 20% 250 ml @ 60 20.833 mls/hr IV MoWeFr [facility] Rx#:[id number] TPN 440 110 Intake, IV Titration 215.780 101.937 Amount propofoL 500 mg In Empty 215.780 101.937 Bag 1 bag @ Titrate IV . Q0M [facility] Rx#:[id number] Tube Feeding 180 202 Other 90 60 Output: Gastric Drainage 150 Urine 1335 385 650 Other: Voiding Method Indwelling Catheter Indwelling Catheter Indwelling Catheter # Bowel Movements 1 ABP, PAP, CO, CI - Last Documented Arterial Blood Pressure 120/49 - Exam - Exam -GENERAL: The patient is intubated and sedated. HEENT: Pupils are round and equally reacting to light. EOMI. No scleral icterus. No conjunctival pallor. Normocephalic, atraumatic. No pharyngeal erythema. No thyromegaly. CARDIOVASCULAR: S1 and S2 present. No murmurs, rubs, or gallops. PULMONARY: Chest is clear to auscultation, no wheezing or crackles. ABDOMEN: Soft, nontender, nondistended, normoactive bowel sounds. No palpable organomegaly. MUSCULOSKELETAL: No joint swelling or deformity. EXTREMITIES: No cyanosis, clubbing, or pedal edema. NEUROLOGICAL: Gross neurological examination did not reveal any focal deficits. SKIN: No rashes. no petechiae. - Labs CBC & Chem 7: 11/12/20 05:00 11/12/20 05:00 Labs: Abnormal Lab Results - Last 24 Hours (Table) 11/11/20 11/11/20 11/11/20 Range/Units 11:00 15:45 20:17 RBC (3.80-5.40) m/uL Hgb (11.4-16.0) gm/dL Hct (34.0-46.0) % Neutrophils # (1.3-7.7) k/uL Lymphocytes # (1.0-4.8) k/uL ABG pCO2 (35-45) mmHg ABG pO2 (83-108) mmHg ABG HCO3 (21-25) mmol/L ABG Total CO2 (19-24) mmol/L Carbon Dioxide (22-30) mmol/L BUN (7-17) mg/dL Glucose (74-99) mg/dL POC Glucose (mg/dL) 217 H 130 H (75-99) mg/dL AST (14-36) U/L ALT (4-34) U/L Total Protein (6.3-8.2) g/dL Albumin (3.5-5.0) g/dL Coronavirus (PCR) Detected A (Not Detected) 11/12/20 11/12/20 11/12/20 Range/Units 00:15 04:59 05:00 RBC (3.80-5.40) m/uL Hgb (11.4-16.0) gm/dL Hct (34.0-46.0) % Neutrophils # (1.3-7.7) k/uL Lymphocytes # (1.0-4.8) k/uL ABG pCO2 (35-45) mmHg ABG pO2 (83-108) mmHg ABG HCO3 (21-25) mmol/L ABG Total CO2 (19-24) mmol/L Carbon Dioxide 33 H (22-30) mmol/L BUN 29 H (7-17) mg/dL Glucose 145 H (74-99) mg/dL POC Glucose (mg/dL) 130 H 144 H (75-99) mg/dL AST 47 H (14-36) U/L ALT 55 H (4-34) U/L Total Protein 5.4 L (6.3-8.2) g/dL Albumin 2.7 L (3.5-5.0) g/dL Coronavirus (PCR) (Not Detected) 11/12/20 11/12/20 11/12/20 Range/Units 05:00 05:12 08:05 RBC 3.39 L (3.80-5.40) m/uL Hgb 9.8 L (11.4-16.0) gm/dL Hct 30.8 L (34.0-46.0) % Neutrophils # 8.9 H (1.3-7.7) k/uL Lymphocytes # 0.9 L (1.0-4.8) k/uL ABG pCO2 53 H (35-45) mmHg ABG pO2 67 L (83-108) mmHg ABG HCO3 33 H (21-25) mmol/L ABG Total CO2 34 H (19-24) mmol/L Carbon Dioxide (22-30) mmol/L BUN (7-17) mg/dL Glucose (74-99) mg/dL POC Glucose (mg/dL) 131 H (75-99) mg/dL AST (14-36) U/L ALT (4-34) U/L Total Protein (6.3-8.2) g/dL Albumin (3.5-5.0) g/dL Coronavirus (PCR) (Not Detected) 11/12/20 Range/Units 12:09 RBC (3.80-5.40) m/uL Hgb (11.4-16.0) gm/dL Hct (34.0-46.0) % Neutrophils # (1.3-7.7) k/uL Lymphocytes # (1.0-4.8) k/uL ABG pCO2 (35-45) mmHg ABG pO2 (83-108) mmHg ABG HCO3 (21-25) mmol/L ABG Total CO2 (19-24) mmol/L Carbon Dioxide (22-30) mmol/L BUN (7-17) mg/dL Glucose (74-99) mg/dL POC Glucose (mg/dL) 139 H (75-99) mg/dL AST (14-36) U/L ALT (4-34) U/L Total Protein (6.3-8.2) g/dL Albumin (3.5-5.0) g/dL Coronavirus (PCR) (Not Detected) Microbiology - Last 24 Hours (Table) 11/08/20 20:58 Blood Culture - Preliminary Blood No Growth after 72 hours Assessment and Plan Assessment: -Acute on chronic hypoxic respiratory failure secondary to COVID-19 pneumonia. Currently on mechanical ventilator. Difficult to wean off from vent. -Bilateral COVID 19 pneumonia causing sepsis. Slow to respond. Has received Remdesivir. Convalescent plasma. on dexamethasone -Also being covered for secondary bacterial pneumonia infection with IV cefepime, patient showing marginal improvement -Acute COPD exacerbation in an [id number] to respond -acute hypoxic respiratory failure, requiring BiPAP-; intubated November 06. Slow to respond on the ventilator -Acute Upper GI bleed with Coffee-ground emesis., hold anticoagulation -Diabetes mellitus 2, uncontrolled with hyperglycemia from steroids. Increase Levemir to 36 units -Chronic fibromyalgia -GERD -Essential hypertension, on Cozaar -Hyperlipidemia, on Lipitor -Obstructive sleep apnea does not use CPAP -Diabetic peripheral neuropathy -Primary osteoarthritis of multiple joint -TPN and lipids DVT prophylaxis: Mechanical, hold Lovenox for possible GI bleed GI prophylaxis: PPI Prognosis guarded No code Time with Patient: Greater than 30
[2020-11-12] MEDS: INSULIN DETEMIR (LEVEMIR) 100 UNIT/ML SYR SQ SCH (20:30)
--- NOTE | 2020-11-12 22:27 | PN ---
PROGRESS NOTE DATE OF SERVICE: 11/12/2020 REASON FOR FOLLOWUP: Pneumonia. INTERVAL HISTORY: The patient is currently afebrile. The patient is hemodynamically stable. The patient remains intubated on the vent. FiO2 is currently at 50% and 12 of PEEP. No significant purulent secretions in the ET or any diarrhea reported. PHYSICAL EXAMINATION: Her vital signs are stable with a blood pressure 129/55 with a pulse of 90, temperature 98. She is 93% on 50% FiO2. General description is a middle-aged female intubated on the vent. RESPIRATORY: Unlabored breathing. Bilateral rhonchi. HEART: S1, S2. Regular rate and rhythm. ABDOMEN: Soft. No tenderness. LABS: Hemoglobin 9.8, white count 10.6, BUN of 29, creatinine 0.54. DIAGNOSTIC IMPRESSION AND PLAN: Patient with acute respiratory failure which is multifactorial in this patient who did have a component of pneumonia followed by worsening respiratory status. Patient is currently covered with cefepime. Culture remains negative. Has shown some clinical improvement. That will be continued and we will monitor her clinical course closely. Continue supportive care. MMODL / IJN: [id number] /
[2020-11-13 00:46] LABS: Glucose,Whole Blood 115 mg/dL (75-99)
[2020-11-13] MEDS: INSULIN ASPART (NovoLOG) 100 UNIT/ML VIAL SQ SCH ×6 (01:03→20:15)
[2020-11-13] MEDS: ALBUTEROL HFA INHALER INHALATION SCH ×6 (02:58→23:50)
[2020-11-13 04:06] LABS: Glucose,Whole Blood 126 mg/dL (75-99)
[2020-11-13 04:39] LABS: Basophils % (A) 0 %; Eosinophils # (A) 0.3 k/uL (0-0.7); Eosinophils % (A) 3 %; HCT 30.2 % (34.0-46.0); HGB 9.8 gm/dL (11.4-16.0); Lymphocytes # (A) 1.1 k/uL (1.0-4.8); Lymphocytes % (A) 12 %; MCH 29.1 pg (25.0-35.0); MCHC 32.3 g/dL (31.0-37.0); Mean Platelet Volume 7.9; Monocytes # (A) 0.4 k/uL (0-1.0); Monocytes % (A) 4 %; Neutrophils # (A) 7.4 k/uL (1.3-7.7); Neutrophils % (A) 79 %; Platelet Count 227 k/uL (150-450); RBC 3.35 m/uL (3.80-5.40); RDW 15.3 % (11.5-15.5); WBC 9.4 k/uL (3.8-10.6)
[2020-11-13 04:48] LABS: ALT 52 U/L (4-34); AST 43 U/L (14-36); African American GFR (CKD) >90 (>60 ml/min/1.73 sqM); Albumin 2.7 g/dL (3.5-5.0); Alkaline Phosphatase 74 U/L (38-126); Anion Gap 4 mmol/L; Blood Urea Nitrogen 24 mg/dL (7-17); Calcium 8.4 mg/dL (8.4-10.2); Carbon Dioxide 33 mmol/L (22-30); Chloride 104 mmol/L (98-107); Glucose 139 mg/dL (74-99); Non-African American GFR(CKD) >90 (>60 ml/min/1.73 sqM); Phosphorus 3.1 mg/dL (2.5-4.5); Potassium 3.7 mmol/L (3.5-5.1); Sodium 141 mmol/L (137-145); Total Bilirubin 0.5 mg/dL (0.2-1.3); Total Protein 5.4 g/dL (6.3-8.2)
[2020-11-13 05:02] LABS: INR 0.9 (<1.2); Prothrombin Time 9.8 sec (9.0-12.0)
[2020-11-13 05:30] LABS: ABG HCO3 32 mmol/L (21-25); ABG Oxygen Saturation 95.2 % (94-97); ABG PCO2 50 mmHg (35-45); ABG PH 7.41 (7.35-7.45); ABG PO2 71 mmHg (83-108); ABG TCO2 33 mmol/L (19-24)
[2020-11-13 05:38] LABS: Allen Test Performed? no
[2020-11-13] MEDS: SYMBICORT 160-4.5 MCG INHALER INHALATION SCH ×2 (07:59→19:52)
[2020-11-13] MEDS: LOSARTAN 50 MG TAB PO SCH (10:00)
[2020-11-13] MEDS: OXcarbazepine 150 MG TAB PO SCH ×3 (10:00→21:07)
[2020-11-13] MEDS: LINAGLIPTIN 5 MG TABLET PO SCH (10:00)
[2020-11-13] MEDS: ASCORBIC ACID 500 MG TAB PO SCH (10:00)
[2020-11-13] MEDS: CHOLECALCIFEROL 25 MCG (1000 IU) TABLET PO SCH (10:00)
[2020-11-13] MEDS: PREGABALIN 100 MG CAP PO SCH ×3 (10:00→21:07)
[2020-11-13] MEDS: ATORVASTATIN 20 MG TAB PO SCH (10:00)
[2020-11-13] MEDS: lamoTRIgine 100 MG TAB PO SCH ×3 (10:00→21:07)
[2020-11-13] MEDS: ZINC SULFATE 220 MG CAP PO SCH (10:01)
[2020-11-13] MEDS: TOPIRAMATE 25 MG TAB PO SCH ×3 (10:01→21:07)
[2020-11-13] MEDS: DEXAMETHASONE SOD PHOSPHATE 10 MG/ML 1 ML VIAL IV SCH (10:06)
[2020-11-13] MEDS: POTASSIUM CHLORIDE 20 MEQ in WATER FOR INJECTION 1 100ML.BAG IVPB SCH ×2 (10:06→14:35)
[2020-11-13] MEDS: PANTOPRAZOLE 40 MG/10 ML VIAL IVP SCH (10:06)
[2020-11-13] MEDS: CHLORHEXIDINE GLUCONATE 15 ML CUP MUCOUS MEM SCH ×2 (10:06→20:51)
[2020-11-13] MEDS: CEFEPIME 2 GM in SODIUM CHLORIDE 0.9% 100 ML IVPB SCH ×2 (10:06→20:51)
[2020-11-13] MEDS: LIDOCAINE 5% PATCH TOPICAL SCH (10:07)
[2020-11-13] MEDS ORDERED: PHENYLEPHRINE-0.9% NACL SYG 1,000 MCG/10 ML SYRINGE ONE (10:40)
[2020-11-13] MEDS ORDERED: fentaNYL (PF) 50 MCG/ML 2 ML AMP ONE (10:40)
[2020-11-13] MEDS ORDERED: IV FLUID CONTINUATION 1,000 ML IV ONE (10:50)
--- NOTE | 2020-11-13 11:59 | P.OP ---
Date of Procedure: 11/13/20 Preoperative Diagnosis: Respiratory failure Malnutrition Postoperative Diagnosis: Respiratory failure Malnutrition Procedure(s) Performed: The tracheostomy Insertion of PEG tube Anesthesia: SVETA Surgeon: Eagle Herrera Estimated Blood Loss (ml): 5 Pathology: none sent Condition: stable Disposition: PACU Description of Procedure: The patient's placed on the operative table in supine position. She received general anesthesia. Her neck was prepped and draped usual fashion. Standard [place] incision was made. Electrocautery subcutaneous tissue divided. The strap muscle were divided in the midline. We'll enter traction placed a wound. The trachea was exposed. The tracheotomy was performed and second and third endotracheal rings. The introducer brought back under direct vision. Then the #8 Portex adjustable cough tracheotomy tube was placed in the trachea. Internal CO2 was confirmed. Skin was closed was 3-0 nylon. Trach ties were applied. Patient top she will well. Next the gastric gastroscope placed oropharynx past esophagus and stomach. Scope was then placed through the pylorus. There is no unsteady gastric obstruction. The stomach was inflated with air. After adequate insufflation a suitable light reflux seen the anterior abdominal wall. The skin and S is 1% local Xylocaine. Using an needle the stomach was cannulized the needle was snared. A wires placed the needle and the wire was snared brought the oropharynx. The PEG tube placed overtop the wire brought down into the stomach. The PEG tube was secured at the 4 cm christophe. Patient top she will was sent to recovery room stable condition.
[2020-11-13 12:43] LABS: Glucose,Whole Blood 116 mg/dL (75-99)
[2020-11-13] MEDS: CLEVIDIPINE BUTYRATE 25 MG in EMPTY BAG 1 BAG IV SCH (12:59)
--- NOTE | 2020-11-13 13:19 | XR ---
EXAMINATION TYPE: XR chest 1V portable DATE OF EXAM: 11/13/2020 COMPARISON: 11/12/2020 INDICATION: Tracheostomy placement TECHNIQUE: Single frontal view of the chest is obtained. FINDINGS: The heart size is normal. The pulmonary vasculature is distinct. Diffuse increased lung markings are present bilaterally. There is insertion of a tracheostomy tube wi th tip above sancho. Small pleural effusions may be present. IMPRESSION: 1. r there is now a tracheostomy tube with the tip 2.7 cm above the sancho 2. Diffuse increased lung markings with small bilateral pleural effusions. Correlate for atypical pn eumonia
[2020-11-13 13:23] LABS: ABG Base Excess 4.2 mmol/L; ABG HCO3 31 mmol/L (21-25); ABG Oxygen Saturation 88.7 % (94-97); ABG PCO2 67 mmHg (35-45); ABG PH 7.28 (7.35-7.45); ABG PO2 62 mmHg (83-108); ABG TCO2 33 mmol/L (19-24); Allen Test Performed? Yes
[2020-11-13] MEDS ORDERED: FUROSEMIDE 10 MG/ML 4 ML VIAL IV STA (13:30)
--- NOTE | 2020-11-13 15:18 | PN ---
PROGRESS NOTE DATE OF SERVICE: 11/13/2020. REASON FOR FOLLOWUP: Pneumonia. INTERVAL HISTORY: The patient is currently afebrile. The patient did have a low-grade fever last night to 100.4 degrees Fahrenheit. The patient is status post tracheostomy this morning. Post tracheostomy did have slight problem with her oxygenation, has to be at 100%. FiO2 is currently down to 50%. Not on any pressor support. No vomiting or diarrhea or any other changes reported by the nursing staff. PHYSICAL EXAMINATION: Blood pressure 98/54 with a pulse of 92, temperature 99.7. She is 94% on 50% FiO2. General description is an elderly female lying in bed in no distress. RESPIRATORY SYSTEM: Unlabored breathing. Decreased breath sounds at the bases. HEART: S1, S2. Regular rate and rhythm. ABDOMEN: Soft. No tenderness. LABS: Hemoglobin 9.8, white count 9.4, BUN of 24 creatinine 0.65. DIAGNOSTIC IMPRESSION AND PLAN: Patient with acute respiratory failure which is multifactorial. This patient initial admission hospital was for COVID-19 infection. The patient has completed her remdesivir with subsequent worsening of her respiratory status. The patient is currently covered with cefepime empirically to continue. Will monitor clinical course closely. Continue supportive care. MMODL / IJN: [id number] /
[2020-11-13 17:29] LABS: Glucose,Whole Blood 141 mg/dL (75-99)
[2020-11-13 20:13] LABS: Glucose,Whole Blood 107 mg/dL (75-99)
--- NOTE | 2020-11-13 20:21 | P.PN ---
Progress Note - Text Progress Note Date: 11/13/20 Chief Complaint: Short of breath History of presenting complaint: This is a 60-year-old patient who follows with Yajaira Barber. Chronic stable medical conditions include diabetes, fibromyalgia, GERD, hypertension, hyperlipidemia, osteoarthritis, obstructive sleep apnea. She is on 3 L of nasal cannula home. Night has been getting it more often lately. Diabetic peripheral neuropathy, obstructive sleep apnea does not use CPAP, chronic kidney disease, arthritis in multiple joints, bipolar schizoaffective disorder. Patient presents of 1 week of increasing shortness of breath. Cough. Slight phlegm. Has had fever for 2 days. Decrease appetite some headaches no loss of taste or smell. No diarrhea. Body aches all over. Patient tested for COVID 19 in the ER. Still somewhat tired rundown. Admitted with bilateral COVID 19 pneumonia, acute hypoxic respiratory failure, acute COPD exacerbation. Patient was started on dexamethasone, Lovenox, Remdesivir, vitamin C vitamin D and zinc. Pulmonary was consulted. Patient has been requiring BiPAP. On October 28 because of increasing oxygen requirement patient is moved to the ICU. Patient was started on IV cefepime and vancomycin. Given convalescent plasma on October 30. PICC line placed-started on TPN and lipids. intubated November 06. November 13-PEG tube and tracheostomy tube done Today-ICU: Ventilator-FiO2 100, PEEP 16. Telemetry sinus rhythm. Drips include propofol. Patient today had tracheostomy and PEG tube done. Became hypotensive. FiO2 and PEEP had to be decreased. IV propofol Review of systems: Patient intubated Active Medications Acetaminophen (Acetaminophen Tab 325 Mg Tab) 650 mg PO Q6HR PRN PRN Reason: Fever and/ or Pain Last Admin: 11/05/20 00:06 Dose: 650 mg Documented by: Albuterol Sulfate (Albuterol Hfa Inhaler) 4 puff INHALATION Q4H [facility] Last Admin: 11/13/20 19:52 Dose: 4 puff Documented by: Aripiprazole (Aripiprazole 10 Mg Tab) 10 mg PO HS [facility] Last Admin: 11/12/20 20:13 Dose: 10 mg Documented by: Aripiprazole (Aripiprazole 20 Mg Tab) 20 mg PO DAILY [facility] Last Admin: 11/13/20 10:00 Dose: Not Given Documented by: Artificial Tears (Artificial Tears-Hypromellose Drops 15 Ml Btl) 1 drops BOTH EYES QID PRN PRN Reason: Dry Eye(s) Last Admin: 10/29/20 18:47 Dose: 1 drops Documented by: Ascorbic Acid (Ascorbic Acid 500 Mg Tab) 500 mg PO DAILY [facility] Last Admin: 11/13/20 10:00 Dose: Not Given Documented by: Atorvastatin Calcium (Atorvastatin 20 Mg Tab) 20 mg PO DAILY [facility] Last Admin: 11/13/20 10:00 Dose: Not Given Documented by: Budesonide/Formoterol Fumarate (Symbicort 160-4.5 Mcg Inhaler) 2 puff INHA LATION RT-BID [facility] Last Admin: 11/13/20 19:52 Dose: 2 puff Documented by: Chlorhexidine Gluconate (Chlorhexidine Gluconate 15 Ml Cup) 15 ml MUCOUS MEM BID [facility] Last Admin: 11/13/20 10:06 Dose: 15 ml Documented by: Cholecalciferol (Cholecalciferol 25 Mcg (1000 Iu) Tablet) 100 mcg PO DAILY [facility] Last Admin: 11/13/20 10:00 Dose: Not Given Documented by: Clonazepam (Clonazepam 0.5 Mg Tab) 0.5 mg PO HS [facility] Last Admin: 11/12/20 20:13 Dose: 0.5 mg Documented by: Dexamethasone Sodium Phosphate (Dexamethasone Sod Phosphate 10 Mg/Ml 1 Ml Vial) 6 mg IV DAILY [facility] Last Admin: 11/13/20 10:06 Dose: 6 mg Documented by: Cefepime HCl 2 gm/ Sodium (Chloride) 100 mls @ 25 mls/hr IVPB Q12HR [facility] Last Admin: 11/13/20 10:06 Dose: 25 mls/hr Documented by: Propofol 500 mg/ IV Solution 50 mls @ 0 mls/hr IV .Q0M [facility]; Protocol Last Admin: 11/13/20 19:59 Dose: 45 mcg/kg/min, 23.301 mls/hr Documented by: Clevidipine 25 mg/ IV Solution 50 mls @ 2 mls/hr IV .Q24H [facility]; Protocol Last Admin: 11/13/20 12:59 Dose: Not Given Documented by: Insulin Aspart (Insulin Aspart (Novolog) 100 Unit/Ml Vial) 0 unit SQ Q4H [facility]; Protocol Last Admin: 11/13/20 20:15 Dose: Not Given Documented by: Insulin Detemir (Insulin Detemir (Levemir) 100 Unit/Ml Syr) 36 unit SQ HS [facility] Last Admin: 11/12/20 20:30 Dose: 36 unit Documented by: Lamotrigine (Lamotrigine 100 Mg Tab) 150 mg PO BID [facility] Last Admin: 11/13/20 10:00 Dose: Not Given Documented by: Lidocaine (Lidocaine 5% Patch) 1 patch TOPICAL DAILY [facility] Last Admin: 11/13/20 10:07 Dose: 1 patch Documented by: Linagliptin (Linagliptin 5 Mg Tablet) 5 mg PO DAILY [facility] Last Admin: 11/13/20 10:00 Dose: Not Given Documented by: Losartan Potassium (Losartan 50 Mg Tab) 50 mg PO DAILY [facility] Last Admin: 11/13/20 10:00 Dose: Not Given Documented by: Meclizine HCl (Meclizine 25 Mg Tab) 25 mg PO Q8H PRN PRN Reason: Nausea And Vomiting Miscellaneous Information (Magnesium Replacement Protocol 1 Each Misc) 1 each MISCELLANE DAILY PRN; Protocol PRN Reason: Per Protocol Miscellaneous Information (Potassium Replacement Protocol 1 Each Misc) 1 each MISCELLANE DAILY PRN; Protocol PRN Reason: Per Protocol Morphine Sulfate (Morphine Sulfate 2 Mg/Ml Syringe) 2 mg IVP Q4H PRN PRN Reason: Pain/Discomfort Last Admin: 11/08/20 04:39 Dose: 2 mg Documented by: Oxcarbazepine (Oxcarbazepine 150 Mg Tab) 150 mg PO BID [facility] Last Admin: 11/13/20 10:00 Dose: Not Given Documented by: Pantoprazole Sodium (Pantoprazole 40 Mg/10 Ml Vial) 40 mg IVP DAILY [facility] Last Admin: 11/13/20 10:06 Dose: 40 mg Documented by: Pregabalin (Pregabalin 100 Mg Cap) 100 mg PO BID [facility] Last Admin: 11/13/20 10:00 Dose: Not Given Documented by: Sumatriptan Succinate (Sumatriptan Succinate 50 Mg Tab) 100 mg PO BID PRN PRN Reason: Migraine Headache Topiramate (Topiramate 25 Mg Tab) 50 mg PO BID [facility] Last Admin: 11/13/20 10:01 Dose: Not Given Documented by: Zinc Sulfate (Zinc Sulfate 220 Mg Cap) 220 mg PO DAILY [facility] Last Admin: 11/13/20 10:01 Dose: Not Given Documented by: Past medical history to include: COPD, diabetes, fibromyalgia, GERD, hyperlipidemia, hypertension, obstructive sleep apnea does not use CPAP, home oxygen 3 L normal. Night, diabetic peripheral neuropathy, chronic kidney disease, bipolar depression, schizoaffective disorder. Social history: Lives with her daughter. Disabled. Home oxygen. Smoked from 9065 through 2009. In the past used several street drugs but not so since 1989. Physical examination: VITAL SIGNS: 100, 102, 26, 96/69, 97% on 100% FiO2 GENERAL: Laying in bed, intubated, tracheostomy Physical exam as per pulmonary and nursing INVESTIGATIONS, reviewed in the clinical context: November 13: WBC 9.4 hemoglobin 9.8 platelets 227 creatinine 0.65 potassium 3.7 November 08: WBC 40.4 hemoglobin 11.4 d-dimer 1.9 potassium 4.6 creatinine 0.71 CRP 83 November 07: WBC 13.9 hemoglobin 11.7 platelets 270 ABG-pH 7.3 pCO2 64 pO2 131 MRSA nasal screen-negative. November 04: D-dimer 4.4 CRP 40.1 pro-calcitonin 0.11 October 28: D-dimer 0.78 CRP 169 pro-calcitonin 0.38 Chest x-ray from yesterday-scattered infiltrates Admission labs: White count 7.2 hemoglobin 15.1 decreased lymphocytes d-dimer 0.85 potassium 3.3 creatinine 0.90 glucose 205 EST 106 ALT 103 CRP 37.2 procalcitonin 0.27 Influenza type A, type B both not detected. RSV P/Cr-not detected. Coronavirus [PCR]-detected EKG tracing personally reviewed by me-normal sinus rhythm some slight ST segment changes Chest x-ray film personally reviewed by me-bilateral basilar infiltrates Assessment and plan: -Bilateral COVID 19 pneumonia causing sepsis. received Remdesivir. Convalescent plasma. colchicine. from dexamethasone to IV Solu-Medrol on October 30.- changed over to dexamethasone 20 mg IV daily- changed over to Decadron, and Lovenox -Also being covered for secondary bacterial pneumonia infection with IV cefepime, IV vancomycin.. MRSA nasal screen negative. vancomycin discontinued -Acute COPD exacerbation in an [id number] to respond -acute hypoxic respiratory failure, requiring BiPAP-; intubated November 06. Slow to respond on the ventilator -Diabetes mellitus 2, uncontrolled with hyperglycemia from steroids. Levemir dose being adjusted -Chronic fibromyalgia -GERD -Essential hypertension, on Cozaar -Hyperlipidemia, on Lipitor -Obstructive sleep apnea does not use CPAP -Diabetic peripheral neuropathy -Primary osteoarthritis of multiple joint -TPN and lipids Prognosis remains guarded. Follow-up in tire mechanic. Remains on IV propofol.
[2020-11-13] MEDS: INSULIN DETEMIR (LEVEMIR) 100 UNIT/ML SYR SQ SCH (20:49)
[2020-11-13] MEDS: clonazePAM 0.5 MG TAB PO SCH ×2 (20:50→21:07)
[2020-11-13] MEDS: ARIPiprazole 10 MG TAB PO SCH ×2 (20:50→21:07)
[2020-11-13] MEDS: MORPHINE SULFATE 2 MG/ML SYRINGE IVP PRN (20:57)
[2020-11-14 00:45] LABS: Glucose,Whole Blood 101 mg/dL (75-99)
[2020-11-14] MEDS: INSULIN ASPART (NovoLOG) 100 UNIT/ML VIAL SQ SCH ×6 (00:56→22:11)
[2020-11-14 05:54] LABS: Basophils % (A) 0 %; Eosinophils # (A) 0.3 k/uL (0-0.7); Eosinophils % (A) 3 %; HCT 29.9 % (34.0-46.0); HGB 9.5 gm/dL (11.4-16.0); Hypochromasia Slight; Lymphocytes # (A) 0.8 k/uL (1.0-4.8); Lymphocytes % (A) 8 %; MCH 28.6 pg (25.0-35.0); MCHC 31.7 g/dL (31.0-37.0); MCV 90.4 fL (80.0-100.0); Mean Platelet Volume 7.9; Monocytes # (A) 0.3 k/uL (0-1.0); Monocytes % (A) 4 %; Neutrophils # (A) 7.6 k/uL (1.3-7.7); Neutrophils % (A) 84 %; Platelet Count 237 k/uL (150-450); RBC 3.31 m/uL (3.80-5.40); RDW 15.9 % (11.5-15.5)
[2020-11-14 06:09] LABS: ALT 57 U/L (4-34); AST 48 U/L (14-36); African American GFR (CKD) >90 (>60 ml/min/1.73 sqM); Albumin 2.8 g/dL (3.5-5.0); Alkaline Phosphatase 77 U/L (38-126); Anion Gap 4 mmol/L; Blood Urea Nitrogen 25 mg/dL (7-17); Calcium 8.1 mg/dL (8.4-10.2); Carbon Dioxide 34 mmol/L (22-30); Chloride 104 mmol/L (98-107); Glucose 122 mg/dL (74-99); Magnesium 1.9 mg/dL (1.6-2.3); Non-African American GFR(CKD) >90 (>60 ml/min/1.73 sqM); Phosphorus 3.3 mg/dL (2.5-4.5); Potassium 3.9 mmol/L (3.5-5.1); Sodium 142 mmol/L (137-145); Total Bilirubin 0.5 mg/dL (0.2-1.3); Total Protein 5.6 g/dL (6.3-8.2)
[2020-11-14 06:21] LABS: ABG Base Excess 8.2 mmol/L; ABG HCO3 33 mmol/L (21-25); ABG PCO2 52 mmHg (35-45); ABG PH 7.41 (7.35-7.45); ABG PO2 163 mmHg (83-108); ABG TCO2 34 mmol/L (19-24); Allen Test Performed? Yes
[2020-11-14] MEDS: ALBUTEROL HFA INHALER INHALATION SCH ×5 (06:32→19:59)
[2020-11-14] MEDS ORDERED: POTASSIUM CHLORIDE 10 MEQ in WATER FOR INJECTION 1 100ML.BAG IVPB SCH (06:45)
[2020-11-14] MEDS ORDERED: POTASSIUM CHLORIDE 20 MEQ in WATER FOR INJECTION 1 100ML.BAG IVPB ONE (07:00)
[2020-11-14] MEDS: SYMBICORT 160-4.5 MCG INHALER INHALATION SCH ×2 (07:31→19:59)
[2020-11-14] MEDS: PANTOPRAZOLE 40 MG/10 ML VIAL IVP SCH (08:12)
[2020-11-14] MEDS: CHLORHEXIDINE GLUCONATE 15 ML CUP MUCOUS MEM SCH ×2 (08:12→21:49)
[2020-11-14] MEDS: DEXAMETHASONE SOD PHOSPHATE 10 MG/ML 1 ML VIAL IV SCH (08:12)
[2020-11-14] MEDS: CHOLECALCIFEROL 25 MCG (1000 IU) TABLET PO SCH (08:12)
[2020-11-14] MEDS: lamoTRIgine 100 MG TAB PO SCH ×2 (08:13→21:47)
[2020-11-14] MEDS: CEFEPIME 2 GM in SODIUM CHLORIDE 0.9% 100 ML IVPB SCH ×2 (08:13→21:46)
[2020-11-14] MEDS: OXcarbazepine 150 MG TAB PO SCH ×2 (08:13→21:47)
[2020-11-14] MEDS: TOPIRAMATE 25 MG TAB PO SCH ×2 (08:13→21:48)
[2020-11-14] MEDS: ATORVASTATIN 20 MG TAB PO SCH (08:13)
[2020-11-14] MEDS: ASCORBIC ACID 500 MG TAB PO SCH (08:13)
[2020-11-14] MEDS: PREGABALIN 100 MG CAP PO SCH ×2 (08:13→21:47)
[2020-11-14] MEDS: LINAGLIPTIN 5 MG TABLET PO SCH (08:14)
[2020-11-14] MEDS: LIDOCAINE 5% PATCH TOPICAL SCH (08:14)
[2020-11-14] MEDS: ZINC SULFATE 220 MG CAP PO SCH (08:15)
--- NOTE | 2020-11-14 09:07 | XR ---
EXAMINATION TYPE: XR chest 1V DATE OF EXAM: 11/14/2020 HISTORY: Shortness of breath. COMPARISON: 11/13/2020 TECHNIQUE: Single view of the chest is submitted. FINDINGS: Tracheostomy tube is in place. Coarse infiltrates persist throughout both lung pool with more conso lidative process at the right lung base. Improving basilar aeration however is noted. The heart is stable. Hilar and mediastinal structures are within normal limits. Degenerative changes are seen of the dorsal spine. IMPRESSION: 1. Coarse infiltrates persist throughout both lung pool with more consolidative process at the rig ht lung base. Improving basilar aeration however is noted.
[2020-11-14 09:53] LABS: Glucose,Whole Blood 117 mg/dL (75-99)
--- NOTE | 2020-11-14 10:05 | P.PN ---
Subjective Progress Note Date: 11/14/20 Principal diagnosis: Respiratory failure Patient underwent tracheostomy and PEG tube placement yesterday. T-max 100.9. White blood cell count normal at 9. Starting tube feeds at 10 mL per hour. Objective - Vital Signs Vital signs: Vital Signs Temp 99.9 F H 11/14/20 08:00 Pulse 86 11/14/20 10:00 Resp 36 H 11/14/20 10:00 BP 107/61 11/14/20 10:00 Pulse Ox 92 L 11/14/20 10:00 Intake & Output 11/13/20 11/14/20 11/14/20 18:59 06:59 18:59 Intake Total 767.498 562.882 49 Output Total 1205 650 130 Balance -437.502 -87.118 -81 Weight 86.3 kg 85.8 kg Intake: IV 653 376 49 .9 NS pressure bag 33 36 9 0.9NS 220 240 40 Cefepime 2 gm In Sodium 100 Chloride 0.9% 100 ml @ 25 mls/hr IVPB Q12HR [facility] Rx #:[id number] Potassium Chloride 10 meq 100 In Water For Injection 1 100ml.bag @ 100 mls/hr IVPB Q1HR [facility] Rx#: [id number] Intake, IV Titration 114.498 186.882 Amount propofoL 500 mg In Empty 114.498 186.882 Bag 1 bag @ Titrate IV . Q0M [facility] Rx#:[id number] Output: Urine 1180 650 130 Estimated Blood Loss 25 Other: Voiding Method Indwelling Catheter Indwelling Catheter Indwelling Catheter ABP, PAP, CO, CI - Last Documented Arterial Blood Pressure 79/65 - Exam Trach site clean without bleeding or erythema Abdomen: Soft, nondistended, PEG tube in place, no appreciable tenderness - Labs CBC & Chem 7: 11/14/20 05:40 11/14/20 05:40 Labs: Abnormal Lab Results - Last 24 Hours (Table) 11/13/20 11/13/20 11/13/20 Range/Units 12:42 13:13 17:27 RBC (3.80-5.40) m/uL Hgb (11.4-16.0) gm/dL Hct (34.0-46.0) % RDW (11.5-15.5) % Lymphocytes # (1.0-4.8) k/uL ABG pH 7.28 L (7.35-7.45) ABG pCO2 67 H (35-45) mmHg ABG pO2 62 L (83-108) mmHg ABG HCO3 31 H (21-25) mmol/L ABG Total CO2 33 H (19-24) mmol/L ABG O2 Saturation 88.7 L (94-97) % Carbon Dioxide (22-30) mmol/L BUN (7-17) mg/dL Glucose (74-99) mg/dL POC Glucose (mg/dL) 116 H 141 H (75-99) mg/dL Calcium (8.4-10.2) mg/dL AST (14-36) U/L ALT (4-34) U/L Total Protein (6.3-8.2) g/dL Albumin (3.5-5.0) g/dL 11/13/20 11/14/20 11/14/20 Range/Units 20:12 00:43 05:40 RBC 3.31 L (3.80-5.40) m/uL Hgb 9.5 L (11.4-16.0) gm/dL Hct 29.9 L (34.0-46.0) % RDW 15.9 H (11.5-15.5) % Lymphocytes # 0.8 L (1.0-4.8) k/uL ABG pH (7.35-7.45) ABG pCO2 (35-45) mmHg ABG pO2 (83-108) mmHg ABG HCO3 (21-25) mmol/L ABG Total CO2 (19-24) mmol/L ABG O2 Saturation (94-97) % Carbon Dioxide (22-30) mmol/L BUN (7-17) mg/dL Glucose (74-99) mg/dL POC Glucose (mg/dL) 107 H 101 H (75-99) mg/dL Calcium (8.4-10.2) mg/dL AST (14-36) U/L ALT (4-34) U/L Total Protein (6.3-8.2) g/dL Albumin (3.5-5.0) g/dL 11/14/20 11/14/20 11/14/20 Range/Units 05:40 06:18 09:51 RBC (3.80-5.40) m/uL Hgb (11.4-16.0) gm/dL Hct (34.0-46.0) % RDW (11.5-15.5) % Lymphocytes # (1.0-4.8) k/uL ABG pH (7.35-7.45) ABG pCO2 52 H (35-45) mmHg ABG pO2 163 H (83-108) mmHg ABG HCO3 33 H (21-25) mmol/L ABG Total CO2 34 H (19-24) mmol/L ABG O2 Saturation 100.0 H (94-97) % Carbon Dioxide 34 H (22-30) mmol/L BUN 25 H (7-17) mg/dL Glucose 122 H (74-99) mg/dL POC Glucose (mg/dL) 117 H (75-99) mg/dL Calcium 8.1 L (8.4-10.2) mg/dL AST 48 H (14-36) U/L ALT 57 H (4-34) U/L Total Protein 5.6 L (6.3-8.2) g/dL Albumin 2.8 L (3.5-5.0) g/dL Microbiology - Last 24 Hours (Table) 11/08/20 20:58 Blood Culture - Preliminary Blood No Growth after 120 hours 11/13/20 12:25 Gram Stain - Preliminary Sputum Sputum Culture - Preliminary Assessment and Plan (1) Pneumonia due to COVID-19 virus Narrative/Plan: Begin tube feeds at 10 mL per hour. Continue tracheostomy care. We'll follow. Current Visit: Yes Status: Acute Code(s): U07.1 - COVID-19; J12.82 - Pneumonia due to coronavirus disease 2018 SNOMED Code(s): [id number]
--- NOTE | 2020-11-14 11:35 | P.PN ---
Subjective Progress Note Date: 11/14/20 Principal diagnosis: Acute on chronic hypoxic respiratory failure secondary to covid 19 pneumonitis. This is a 58-year-old female patient with COVID 19 related pneumonia. The kailey ent has developed progressive worsening and hypoxic respiratory failure secondary to coronavirus/COVID 19 pneumonia. The patient was treated with a combination of treatment including Remdesivir and steroids and the patient was also treated with colchicine. The patient was given anticoagulation with Lovenox. With progressive respiratory failure, the patient was placed on high flow oxygen and subsequently the patient was switched to BiPAP for respiratory support. The patient was initially a DNR/DNI status and somewhat at a later stage she changed her mind and she was consented for short-term intubation mechanical ventilation if needed. She did not want any form of long-term aspiratory support, tracheostomy and feeding tube. The patient currently is on a BiPAP at a pressure of 12/6 cm of water and FiO2 of 100%. Chest x-ray has not shown any significant improvement. For now, the patient is on BiPAP for respiratory support, she is receiving colchicine 0.6 mg by mouth twice a day. She is on Lovenox 40 mg subcu every 12 hours. She is on Levemir insulin 15 units at bedtime in addition to a sliding scale coverage. She is receiving albuterol HFA 4 puffs every 4 hours when necessary and his Symbicort on a 160/4.52 puffs twice a day. The patient is also on IV Solu-Medrol 60 mg every 6 hours. The patient is also on antibiotic coverage with vancomycin. The patient is on BiPAP at a pressure of 12/6 cm of water with an FiO2 of 100%. The chest x-ray shows stable findings. While on the BiPAP, she is able to generate a tidal volume as high as 800. Nevertheless she is quite tachypneic and her minute ventilation is around 18-20 L per minute. Her pulse ox is order of 91%. Even while being given her medication, she seems to be desaturating out of it. Otherwise, she is hemodynamically stable. No chest pain. No altered mentation. No fever. No chills. She was unable to eat and she is currently on TPN for nutritional support. On 11/07/2020, the patient is being seen in follow-up. The patient was intubated yesterday and postintubation she became profoundly hypoxic and based on that, the appropriate ventilator changes were done. I ultimately put the patient on an assist-control mode at the rate of 78 with a tidal volume of 350 and the PEEP was at 20 with an FiO2 of 100%. Subsequently, we were able to wean down the PEEP down to 75%. The most recent blood gases was a 75% FiO2 showed a pH of 7.33 with a pCO2 of 51 and pO2 of 139. She is currently in a prone body positioning. I'm going to liver back to supine today after being thrown for the past 16 hours. No chest x-rays available from today. Meanwhile, the patient has a peak airway pressure that around 33 while she is been in a prone body position. On today's evaluation, she is sedated with propofol which is currently running at 45 micrograms per KG per minute. She is still on TPN for nutritional support. She is hemodynamically stable on no pressors. IV fluids are all. She has a PICC line and she also has an arterial line. On today's blood work, his CRP level is up to 179, pro calcitonin from yesterday was 0.1, her LDH level is at 782, there was a causative 12.6 with a hemoglobin of 12.6. Platelet count is at 96. Renal function stable with a creatinine of 0.1. The net fluid balance over the past 24 hours is been negative to 45 mL. The patient remains on Decadron 20 mg IV, colchicine 0.6 mg by mouth twice a day, she is also on zinc sulfate and multivitamins. Antibiotic coverage is with IV cefepime. Lovenox Discontinued yesterday as the patient developed coffee-ground emesis and this was also noted in her OG. Based on that, no enteral feeding has been done and the patient is still on TPN for nutritional support. Patient was reevaluated today on 11/08/2020, patient remains in the ICU, intubated and mechanically ventilated. She is presently on assist control mode of mechanical ventilation, tidal volume is 350 rate of 28 FiO2 60% PEEP was 18 and I cut it down to 16. ABG showed a pO2 of 106 pCO2 of 67 pH of 7.30. Patient is now in prone position. She remains on propofol at 45 mcg/kg/m, she is also on TPN. She is not requiring any pressors. Chest x-ray showed significant interstitial edema involving the right lung, more so than the left lung. CBC showed WBC count of 14.4, hemoglobin is 11.4 d-dimer is 1.90, electrolytes and renal profile are normal LDH is 745 C-reactive protein 83.1 blood sugar is 168. Patient is on TPN. Continues to have some coffee-ground material in the orogastric tube. Patient has been intermittently in prone position for about 16 hours. And this morning she was still in prone position from earlier today. After reviewing the ABG, I recommended cutting down the PEEP from 18-16 and kept her on 60% FiO2. Patient remains on Decadron, colchicine, she is also on zinc and multivitamins. Remains on cefepime, Lovenox is presently on hold. Reevaluated today on 11/09/2020, patient remains in the ICU, intubated and mechanically ventilated. She is back in a prone position this morning. Her ventilator settings are assist control rate of 28 tidal volume 350 FiO2 is 60% PEEP is 16 after reviewing her ABG, I cut down her PEEP down to 14 and her FiO2 is down to 55%. ABG showed a pO2 of 114 pCO2 of 67 pH of 7.31. Patient remains on propofol at 45 mcg/kg/m, she is also on TPN which is presently on hold and the patient is receiving enteral feeding. Patient was intubated on 11/06/2020, and she has been intermittently late in prone positioning. Chest x-ray continues to show bilateral infiltrates, right more so than left. CBC is relatively normal. Basic metabolic profile is normal. Renal profile is normal. C-reactive protein is 36 and her LDH is 593, both are trending down Patient was reevaluated today on 11/10/2020, patient remains in the ICU, remains intubated and mechanically ventilated. Her ventilator settings are assist control rate of 28, tidal volume 350 FiO2 is down to 55% this morning and the PEEP is down to 12. ABG on 60% and PEEP of 14 showed a pO2 of 109 pCO2 of 59 pH of 7.38. Patient remains on TPN, up to goal, propofol at 45 mcg/kg/m, I will fluid at KVO. Pressure is 25 her plateau pressure is 20 chest x-ray continues to show diffuse interstitial infiltrates bilaterally. Right more so than left. Today after reevaluating the patient, I have recommended cutting down the PEEP to 12 and FiO2 down to 50%. I also increased the flow to 75 L/m. Patient is now in prone position, however when she is in supine position, I have instructed holding sedation, and assessment of mental status today this afternoon. Chest x-ray was reviewed CBC is relatively normal ABG was reviewed. Basic metabolic profile is normal and her renal profile is normal. Liver profile is relatively unremarkable except for slightly elevated transaminases. Patient remains on the Coumadin 19 cocktail, she is also on cefepime. Colchicine Decadron 6 mg IV push daily, insulin Trileptal, Protonix, and zinc. Is also on cefepime which I will continue for the time being. Patient was reevaluated today on 11/11/2020, remains in the ICU, intubated and mechanically ventilated, intermittently in prone position for 16 hours every day. Today she is back in prone position, however considering the patient's improvement in oxygenation, I was able to cut down her FiO2 to 50%, and her PEEP is down to 12. Patient was awakened yesterday, sedation was placed on hold, and the patient was appropriate according to the nurse taking care of the patient, and she was following very simple instructions. Chest x-ray continues to show diffuse bilateral infiltrates. Patient remains on TPN, and she'll be transitioned today to enteral feeding. ABG showed a pO2 of 97 pCO2 of 59 pH of 7.37. Her ventilator settings at present are FiO2 of 50% PEEP of 12 tidal volume is 350 Patient was reevaluated today on 11/12/2020, patient remains in the ICU, remains intubated and mechanically ventilated. She is not in prone position today anymore, her ventilator settings are assist control rate 28 tidal volume is 350 FiO2 50% and PEEP of 12. ABG showed a pO2 of 67 pCO2 of 53 pH of 7.40. Patient is on IV fluid at KVO, propofol at 35 mcg/kg/m, she is also on enteral feeding, and TPN is off. Chest x-ray is showing slight improvement especially on the left side. Patient is arousable even with propofol on board, and she'll follow simple instructions like wiggling toes and squeezing hands. However she is noted to be generally weak, and considering his overall picture I believe the patient has critical illness polyneuropathy. Hence I am feeling that the patient will not wean easily, and tracheostomy and PEG tube placement would be appropriate at this time. We will consult general surgery for possible tracheostomy in the next 24 hours CBC is relatively normal ABG as noted above electrolytes are normal renal profile is normal. Liver enzymes are normalizing. Reevaluated today on 11/13/2020, patient remains in the ICU, intubated and mechanically ventilated. Her ventilator settings are assist control rate of 28 tidal volume 350 FiO2 50% and PEEP of 12. No chest x-ray was done this morning, however the patient will have a chest x-ray post tracheostomy sometime later today. ABG showed a pO2 of 71 pCO2 of 50 pH of 7.41. Patient remains on propofol at 40 mcg/kg/m, and she remains on cefepime empirically. Blood cultures and sputum cultures have been negative over the last couple of weeks. Urine culture has also been negative. Patient is arousable, follows simple instructions. And yesterday I had a long discussion with her daughter and her sister regarding tracheostomy and PEG tube placement. Initially they were reluctant to have the procedure done, however as I explained the purpose of the procedure and the goal, they became agreeable for the procedure. Patient was reevaluated today on 11/14/2020, patient underwent tracheostomy and PEG tube placement yesterday. However as soon as she arrived to the ICU, patient required increase in her FiO2 and increase in her PEEP because she came back to desaturating significantly. Chest x-ray was basically about the same, the tracheostomy tip was very close to the sancho but was not in the right mainstem bronchus. Patient had adjustment of her tracheostomy, placed on 100% FiO2, increased the PEEP to 16, and recommended mostly sedation overnight. This morning patient had ABG on 80% FiO2 with tidal volume of 350 rate of 34 and PEEP was at 16, ABG showed pO2 of 163 pCO2 of 52 pH of 7.41. Hence patient was placed on a PEEP of 14, cut down her FiO2 back to 50%, and I plan to titrate her PEEP down further over the next 24 hours hopefully back to 12 or 10. Patient is on propofol at 45 mcg/kg/m, and I cut it down to 25 pg/kg/m. Patient is arousable while on propofol, and she follows simple instructions. Enteral feeding will be restarted today via PEG tube which was placed yesterday. Lovenox remains on hold, however I will restart Lovenox today, patient developed erosive gastritis when she was on Lovenox and we had it on hold for the last 1 week chest x-ray today showed slight improvement in her interstitial infiltrates especially on the left side. CBC showed the PEEP cigar of 9 hemoglobin 9.5. Electrolytes are normal. Bicarb is 34, renal profile is normal. Liver enzymes are significantly improved just above normal Objective - Vital Signs Vital signs: Vital Signs Temp 99.9 F H 11/14/20 08:00 Pulse 86 11/14/20 10:00 Resp 36 H 11/14/20 10:00 BP 107/61 11/14/20 10:00 Pulse Ox 92 L 11/14/20 10:00 Intake & Output 11/13/20 11/14/20 11/14/20 18:59 06:59 18:59 Intake Total 767.498 562.882 49 Output Total 1205 650 130 Balance -437.502 -87.118 -81 Weight 86.3 kg 85.8 kg Intake: IV 653 376 49 .9 NS pressure bag 33 36 9 0.9NS 220 240 40 Cefepime 2 gm In Sodium 100 Chloride 0.9% 100 ml @ 25 mls/hr IVPB Q12HR RAE Rx #:[id number] Potassium Chloride 10 meq 100 In Water For Injection 1 100ml.bag @ 100 mls/hr IVPB Q1HR RAE Rx#: [id number] Intake, IV Titration 114.498 186.882 Amount propofoL 500 mg In Empty 114.498 186.882 Bag 1 bag @ Titrate IV . Q0M RAE Rx#:[id number] Output: Urine 1180 650 130 Estimated Blood Loss 25 Other: Voiding Method Indwelling Catheter Indwelling Catheter Indwelling Catheter ABP, PAP, CO, CI - Last Documented Arterial Blood Pressure 79/65 - Exam Physical Exam: Revealed a 60-year-old female, on mechanical ventilation via trac heostomy. Head: Atraumatic, normocephalic. Tracheostomy is intact. HEENT:[Neck is supple.] [No neck masses.] [No thyromegaly.] [No JVD.] brandon,eomi, nonicteric. Chest: [Symmetrical chest expansion, crackles persist bilaterally at the bases especially at the right base. Cardiac Exam: [Normal S1 and S2, no S3 gallop, no murmur.] Abdomen: [Obese, Soft, nontender, no megaly, no rebound, no guarding, normal bowel sounds.] Extremities: [No clubbing, no edema, no cyanosis.] Skin: No rashes. Neurological Exam: Arousable, even on propofol, the patient follows simple instructions. Like squeezing hands wiggling toes and closing eyes. Psychiatric: Depressed mood, blunt affect, otherwise as above - Labs CBC & Chem 7: 11/14/20 05:40 11/14/20 05:40 Labs: Abnormal Lab Results - Last 24 Hours (Table) 11/13/20 11/13/20 11/13/20 Range/Units 12:42 13:13 17:27 RBC (3.80-5.40) m/uL Hgb (11.4-16.0) gm/dL Hct (34.0-46.0) % RDW (11.5-15.5) % Lymphocytes # (1.0-4.8) k/uL ABG pH 7.28 L (7.35-7.45) ABG pCO2 67 H (35-45) mmHg ABG pO2 62 L (83-108) mmHg ABG HCO3 31 H (21-25) mmol/L ABG Total CO2 33 H (19-24) mmol/L ABG O2 Saturation 88.7 L (94-97) % Carbon Dioxide (22-30) mmol/L BUN (7-17) mg/dL Glucose (74-99) mg/dL POC Glucose (mg/dL) 116 H 141 H (75-99) mg/dL Calcium (8.4-10.2) mg/dL AST (14-36) U/L ALT (4-34) U/L Total Protein (6.3-8.2) g/dL Albumin (3.5-5.0) g/dL 11/13/20 11/14/20 11/14/20 Range/Units 20:12 00:43 05:40 RBC 3.31 L (3.80-5.40) m/uL Hgb 9.5 L (11.4-16.0) gm/dL Hct 29.9 L (34.0-46.0) % RDW 15.9 H (11.5-15.5) % Lymphocytes # 0.8 L (1.0-4.8) k/uL ABG pH (7.35-7.45) ABG pCO2 (35-45) mmHg ABG pO2 (83-108) mmHg ABG HCO3 (21-25) mmol/L ABG Total CO2 (19-24) mmol/L ABG O2 Saturation (94-97) % Carbon Dioxide (22-30) mmol/L BUN (7-17) mg/dL Glucose (74-99) mg/dL POC Glucose (mg/dL) 107 H 101 H (75-99) mg/dL Calcium (8.4-10.2) mg/dL AST (14-36) U/L ALT (4-34) U/L Total Protein (6.3-8.2) g/dL Albumin (3.5-5.0) g/dL 11/14/20 11/14/20 11/14/20 Range/Units 05:40 06:18 09:51 RBC (3.80-5.40) m/uL Hgb (11.4-16.0) gm/dL Hct (34.0-46.0) % RDW (11.5-15.5) % Lymphocytes # (1.0-4.8) k/uL ABG pH (7.35-7.45) ABG pCO2 52 H (35-45) mmHg ABG pO2 163 H (83-108) mmHg ABG HCO3 33 H (21-25) mmol/L ABG Total CO2 34 H (19-24) mmol/L ABG O2 Saturation 100.0 H (94-97) % Carbon Dioxide 34 H (22-30) mmol/L BUN 25 H (7-17) mg/dL Glucose 122 H (74-99) mg/dL POC Glucose (mg/dL) 117 H (75-99) mg/dL Calcium 8.1 L (8.4-10.2) mg/dL AST 48 H (14-36) U/L ALT 57 H (4-34) U/L Total Protein 5.6 L (6.3-8.2) g/dL Albumin 2.8 L (3.5-5.0) g/dL Microbiology - Last 24 Hours (Table) 11/08/20 20:58 Blood Culture - Preliminary Blood No Growth after 120 hours 11/13/20 12:25 Gram Stain - Preliminary Sputum Sputum Culture - Preliminary Assessment and Plan Assessment: Impression: Acute on chronic hypoxic respiratory failure secondary to acute covid 19 pneumonitis. On mechanical ventilation Elevated transaminases secondary to Covid 19 infection, improving Type 2 diabetes. History of dyslipidemia. Obstructive sleep apnea syndrome. History of bipolar disorder. Back on her psychiatric medications. Acute upper GI bleeding with coffee-ground emesis, most likely secondary to erosive gastritis. Resolved. Remains on Protonix. Lovenox was on hold however I will restart Lovenox today. Critical illness polyneuropathy with generalized weakness. Status post tracheostomy and PEG tube placement on 11/13/2020. Recommendation: Continue ventilatory support. Presently on 50% FiO2 and PEEP of 14. Continue nutritional support/enteral feedings. Via PEG tube. We'll continue daily assessment of mental status Resume Lovenox Continue cefepime. Continue GI and DVT prophylaxis. Continue Decadron at 6 mg IV push daily. Continue colchicine 0.6 mg daily Patient remains critically ill Critical care time is over 30 minutes. Time with Patient: Greater than 30
[2020-11-14] MEDS: ENOXAPARIN 40 MG/0.4 ML SYRINGE SQ SCH (12:21)
[2020-11-14 12:28] LABS: Glucose,Whole Blood 136 mg/dL (75-99)
--- NOTE | 2020-11-14 15:21 | PN ---
PROGRESS NOTE DATE OF SERVICE: 11/14/2020 REASON FOR FOLLOWUP: Pneumonia. INTERVAL HISTORY: The patient is currently afebrile. The patient is hemodynamically stable, not on any pressor support. Patient's FiO2 is currently 50%. No significant purulent secretions thru the ET or diarrhea reported by nursing staff. PHYSICAL EXAMINATION: Blood pressure 118/66, pulse of 92, temperature 98.5. She is 92% on 50% FiO2. General description is a middle-aged female lying in bed in no distress. Respiratory system: Unlabored breathing, decreased breath sounds at bases. No wheeze. Heart S1, S2. Regular rate and rhythm. Abdomen soft, no tenderness. LABS: Hemoglobin 9.5, white count 9.0. BUN of 25, creatinine 0.69. Sputum culture repeat is currently pending. DIAGNOSTIC IMPRESSION AND PLAN: Patient with acute respiratory failure which is multifactorial in this patient who was admitted to the hospital with Covid 19, completed Remdesivir therapy. Subsequently with evidence of respiratory failure, failed to be extubated, status post tracheostomy. Patient white count normalized. Currently covered with empiric antibiotic therapy, continue and monitor clinical course closely. MMODL / IJN: [id number] /
[2020-11-14] MEDS: LOSARTAN 50 MG TAB PO SCH (15:29)
[2020-11-14] MEDS: CLEVIDIPINE BUTYRATE 25 MG in EMPTY BAG 1 BAG IV SCH (15:29)
[2020-11-14 16:39] LABS: Glucose,Whole Blood 142 mg/dL (75-99)
--- NOTE | 2020-11-14 18:13 | P.PN ---
Progress Note - Text Progress Note Date: 11/14/20 Chief Complaint: Short of breath History of presenting complaint: This is a 60-year-old patient who follows with Yajaira Barber. Chronic stable medical conditions include diabetes, fibromyalgia, GERD, hypertension, hyperlipidemia, osteoarthritis, obstructive sleep apnea. She is on 3 L of nasal cannula home. Night has been getting it more often lately. Diabetic peripheral neuropathy, obstructive sleep apnea does not use CPAP, chronic kidney disease, arthritis in multiple joints, bipolar schizoaffective disorder. Patient presents of 1 week of increasing shortness of breath. Cough. Slight phlegm. Has had fever for 2 days. Decrease appetite some headaches no loss of taste or smell. No diarrhea. Body aches all over. Patient tested for COVID 19 in the ER. Still somewhat tired rundown. Admitted with bilateral COVID 19 pneumonia, acute hypoxic respiratory failure, acute COPD exacerbation. Patient was started on dexamethasone, Lovenox, Remdesivir, vitamin C vitamin D and zinc. Pulmonary was consulted. Patient has been requiring BiPAP. On October 28 because of increasing oxygen requirement patient is moved to the ICU. Patient was started on IV cefepime and vancomycin. Given convalescent plasma on October 30. PICC line placed-started on TPN and lipids. intubated November 06. November 13-PEG tube and tracheostomy tube done Today-ICU: Ventilator-FiO2 50 and a PEEP of 14. Telemetry-sinus rhythm. Following some commands though lethargic. Review of systems: Patient intubated Active Medications Acetaminophen (Acetaminophen Tab 325 Mg Tab) 650 mg PO Q6HR PRN PRN Reason: Fever and/ or Pain Last Admin: 11/05/20 00:06 Dose: 650 mg Documented by: Albuterol Sulfate (Albuterol Hfa Inhaler) 4 puff INHALATION Q4H [facility] Last Admin: 11/14/20 16:05 Dose: 4 puff Documented by: Aripiprazole (Aripiprazole 10 Mg Tab) 10 mg PO HS [facility] Last Admin: 11/13/20 21:07 Dose: Not Given Documented by: Aripiprazole (Aripiprazole 20 Mg Tab) 20 mg PO DAILY [facility] Last Admin: 11/14/20 08:14 Dose: 20 mg Documented by: Artificial Tears (Artificial Tears-Hypromellose Drops 15 Ml Btl) 1 drops BOTH EYES QID PRN PRN Reason: Dry Eye(s) Last Admin: 10/29/20 18:47 Dose: 1 drops Documented by: Ascorbic Acid (Ascorbic Acid 500 Mg Tab) 500 mg PO DAILY [facility] Last Admin: 11/14/20 08:13 Dose: 500 mg Documented by: Atorvastatin Calcium (Atorvastatin 20 Mg Tab) 20 mg PO DAILY [facility] Last Admin: 11/14/20 08:13 Dose: 20 mg Documented by: Budesonide/Formoterol Fumarate (Symbicort 160-4.5 Mcg Inhaler) 2 puff INHALATION RT-BID [facility] Last Admin: 11/14/20 07:31 Dose: 2 puff Documented by: Chlorhexidine Gluconate (Chlorhexidine Gluconate 15 Ml Cup) 15 ml MUCOUS MEM BID [facility] Last Admin: 11/14/20 08:12 Dose: 15 ml Documented by: Cholecalciferol (Cholecalciferol 25 Mcg (1000 Iu) Tablet) 100 mcg PO DAILY [facility] Last Admin: 11/14/20 08:12 Dose: 100 mcg Documented by: Clonazepam (Clonazepam 0.5 Mg Tab) 0.5 mg PO HS [facility] Last Admin: 11/13/20 21:07 Dose: Not Given Documented by: Dexamethasone Sodium Phosphate (Dexamethasone Sod Phosphate 10 Mg/Ml 1 Ml Vial) 6 mg IV DAILY [facility] Last Admin: 11/14/20 08:12 Dose: 6 mg Documented by: Enoxaparin Sodium (Enoxaparin 40 Mg/0.4 Ml Syringe) 40 mg SQ DAILY [facility] Last Admin: 11/14/20 12:21 Dose: 40 mg Documented by: Cefepime HCl 2 gm/ Sodium (Chloride) 100 mls @ 25 mls/hr IVPB Q12HR [facility] Last Admin: 11/14/20 08:13 Dose: 25 mls/hr Documented by: Propofol 500 mg/ IV Solution 50 mls @ 0 mls/hr IV .Q0M [facility]; Protocol Last Admin: 11/14/20 16:52 Dose: 45 mcg/kg/min, 23.166 mls/hr Documented by: Clevidipine 25 mg/ IV Solution 50 mls @ 2 mls/hr IV .Q24H [facility]; Protocol Last Admin: 11/14/20 15:29 Dose: Not Given Documented by: Insulin Aspart (Insulin Aspart (Novolog) 100 Unit/Ml Vial) 0 unit SQ Q4H [facility]; Protocol Last Admin: 11/14/20 16:51 Dose: 2 unit Documented by: Insulin Detemir (Insulin Detemir (Levemir) 100 Unit/Ml Syr) 36 unit SQ HS [facility] Last Admin: 11/13/20 20:49 Dose: 36 unit Documented by: Lamotrigine (Lamotrigine 100 Mg Tab) 150 mg PO BID [facility] Last Admin: 11/14/20 08:13 Dose: 150 mg Documented by: Lidocaine (Lidocaine 5% Patch) 1 patch TOPICAL DAILY [facility] Last Admin: 11/14/20 08:14 Dose: 1 patch Documented by: Linagliptin (Linagliptin 5 Mg Tablet) 5 mg PO DAILY [facility] Last Admin: 11/14/20 08:14 Dose: 5 mg Documented by: Losartan Potassium (Losartan 50 Mg Tab) 50 mg PO DAILY [facility] Last Admin: 11/14/20 15:29 Dose: Not Given Documented by: Meclizine HCl (Meclizine 25 Mg Tab) 25 mg PO Q8H PRN PRN Reason: Nausea And Vomiting Miscellaneous Information (Magnesium Replacement Protocol 1 Each Misc) 1 each MISCELLANE DAILY PRN; Protocol PRN Reason: Per Protocol Miscellaneous Information (Potassium Replacement Protocol 1 Each Misc) 1 each MISCELLANE DAILY PRN; Protocol PRN Reason: Per Protocol Morphine Sulfate (Morphine Sulfate 2 Mg/Ml Syringe) 2 mg IVP Q4H PRN PRN Reason: Pain/Discomfort Last Admin: 11/13/20 20:57 Dose: 2 mg Documented by: Oxcarbazepine (Oxcarbazepine 150 Mg Tab) 150 mg PO BID [facility] Last Admin: 11/14/20 08:13 Dose: 150 mg Documented by: Pantoprazole Sodium (Pantoprazole 40 Mg/10 Ml Vial) 40 mg IVP DAILY [facility] Last Admin: 11/14/20 08:12 Dose: 40 mg Documented by: Pregabalin (Pregabalin 100 Mg Cap) 100 mg PO BID [facility] Last Admin: 11/14/20 08:13 Dose: 100 mg Documented by: Sumatriptan Succinate (Sumatriptan Succinate 50 Mg Tab) 100 mg PO BID PRN PRN Reason: Migraine Headache Topiramate (Topiramate 25 Mg Tab) 50 mg PO BID [facility] Last Admin: 11/14/20 08:13 Dose: 50 mg Documented by: Zinc Sulfate (Zinc Sulfate 220 Mg Cap) 220 mg PO DAILY [facility] Last Admin: 11/14/20 08:15 Dose: 220 mg Documented by: Past medical history to include: COPD, diabetes, fibromyalgia, GERD, hyperlipidemia, hypertension, obstructive sleep apnea does not use CPAP, home oxygen 3 L normal. Night, diabetic peripheral neuropathy, chronic kidney disease, bipolar depression, schizoaffective disorder. Social history: Lives with her daughter. Disabled. Home oxygen. Smoked from 9065 through 2009. In the past used several street drugs but not so since 1989. Physical examination: VITAL SIGNS: 99.5, 76, 35, 97/50, 93% on the ventilator GENERAL: Laying in bed, intubated, tracheostomy Physical exam as per pulmonary and nursing INVESTIGATIONS, reviewed in the clinical context: November 14: WBC 9 hemoglobin 9.5 platelets 237 ABG-pCO2 52, pO2 was 63. Potassium 3.9 creatinine 0.69 November 13: WBC 9.4 hemoglobin 9.8 platelets 227 creatinine 0.65 potassium 3.7 November 08: WBC 40.4 hemoglobin 11.4 d-dimer 1.9 potassium 4.6 creatinine 0.71 CRP 83 November 07: WBC 13.9 hemoglobin 11.7 platelets 270 ABG-pH 7.3 pCO2 64 pO2 131 MRSA nasal screen-negative. November 04: D-dimer 4.4 CRP 40.1 pro-calcitonin 0.11 October 28: D-dimer 0.78 CRP 169 pro-calcitonin 0.38 Chest x-ray from yesterday-scattered infiltrates Admission labs: White count 7.2 hemoglobin 15.1 decreased lymphocytes d-dimer 0.85 potassium 3.3 creatinine 0.90 glucose 205 EST 106 ALT 103 CRP 37.2 procalcitonin 0.27 Influenza type A, type B both not detected. RSV P/Cr-not detected. Coronavirus [PCR]-detected EKG tracing personally reviewed by me-normal sinus rhythm some slight ST segment changes Chest x-ray film personally reviewed by me-bilateral basilar infiltrates Assessment and plan: -Bilateral COVID 19 pneumonia causing sepsis. received Remdesivir. Convalescent plasma. colchicine. Received dexamethasone - Solu-Medrol - dexamethasone 20 mg IV daily- currently Decadron, and Lovenox -secondary bacterial pneumonia infection with IV cefepime, IV vancomycin.. MRSA nasal screen negative. vancomycin discontinued -Acute COPD exacerbation in an [id number] to respond -acute hypoxic respiratory failure, requiring BiPAP-; intubated November 06. Slow to respond on the ventilator -Diabetes mellitus 2, uncontrolled with hyperglycemia from steroids. Levemir dose being adjusted -Chronic fibromyalgia -GERD -Essential hypertension, on Cozaar -Hyperlipidemia, on Lipitor -Obstructive sleep apnea does not use CPAP -Diabetic peripheral neuropathy -Primary osteoarthritis of multiple joint -TPN and lipids Prognosis remains guarded. Continue current medications
[2020-11-14] MEDS: INSULIN DETEMIR (LEVEMIR) 100 UNIT/ML SYR SQ SCH (21:46)
[2020-11-14] MEDS: ARIPiprazole 10 MG TAB PO SCH (21:47)
[2020-11-14] MEDS: clonazePAM 0.5 MG TAB PO SCH (21:47)
[2020-11-14 22:03] LABS: Glucose,Whole Blood 94 mg/dL (75-99)
[2020-11-14] MEDS: MORPHINE SULFATE 2 MG/ML SYRINGE IVP PRN (22:11)
[2020-11-15] MEDS: ALBUTEROL HFA INHALER INHALATION SCH ×6 (00:09→19:06)
[2020-11-15 01:08] LABS: Glucose,Whole Blood 85 mg/dL (75-99)
[2020-11-15] MEDS: INSULIN ASPART (NovoLOG) 100 UNIT/ML VIAL SQ SCH ×6 (01:27→20:57)
[2020-11-15 04:52] LABS: Basophils % (A) 0 %; Eosinophils # (A) 0.3 k/uL (0-0.7); Eosinophils % (A) 5 %; HCT 27.2 % (34.0-46.0); HGB 8.6 gm/dL (11.4-16.0); Hypochromasia Slight; Lymphocytes # (A) 0.9 k/uL (1.0-4.8); Lymphocytes % (A) 13 %; MCH 28.3 pg (25.0-35.0); MCHC 31.7 g/dL (31.0-37.0); MCV 89.2 fL (80.0-100.0); Mean Platelet Volume 7.8; Monocytes # (A) 0.4 k/uL (0-1.0); Monocytes % (A) 6 %; Neutrophils # (A) 5.2 k/uL (1.3-7.7); Neutrophils % (A) 75 %; Platelet Count 199 k/uL (150-450); RBC 3.05 m/uL (3.80-5.40); RDW 15.9 % (11.5-15.5)
[2020-11-15 05:16] LABS: ALT 52 U/L (4-34); AST 45 U/L (14-36); African American GFR (CKD) >90 (>60 ml/min/1.73 sqM); Albumin 2.6 g/dL (3.5-5.0); Alkaline Phosphatase 76 U/L (38-126); Anion Gap 2 mmol/L; Blood Urea Nitrogen 29 mg/dL (7-17); Calcium 8.3 mg/dL (8.4-10.2); Carbon Dioxide 33 mmol/L (22-30); Chloride 105 mmol/L (98-107); Glucose 84 mg/dL (74-99); Non-African American GFR(CKD) 86 (>60 ml/min/1.73 sqM); Potassium 3.6 mmol/L (3.5-5.1); Sodium 140 mmol/L (137-145); Total Bilirubin 0.4 mg/dL (0.2-1.3); Total Protein 5.2 g/dL (6.3-8.2)
[2020-11-15 05:58] LABS: ABG Base Excess 7.9 mmol/L; ABG HCO3 32 mmol/L (21-25); ABG Oxygen Saturation 98.2 % (94-97); ABG PCO2 45 mmHg (35-45); ABG PH 7.45 (7.35-7.45); ABG PO2 86 mmHg (83-108); ABG TCO2 33 mmol/L (19-24); Allen Test Performed? Yes
[2020-11-15] MEDS: POTASSIUM CHLORIDE 20 MEQ in WATER FOR INJECTION 1 100ML.BAG IVPB SCH ×2 (06:23→08:44)
[2020-11-15] MEDS: SYMBICORT 160-4.5 MCG INHALER INHALATION SCH (07:19)
[2020-11-15] MEDS: OXcarbazepine 150 MG TAB PO SCH ×2 (08:32→21:04)
[2020-11-15] MEDS: PANTOPRAZOLE 40 MG/10 ML VIAL IVP SCH (08:37)
[2020-11-15] MEDS: ZINC SULFATE 220 MG CAP PO SCH (08:37)
[2020-11-15] MEDS: lamoTRIgine 100 MG TAB PO SCH ×2 (08:37→21:04)
[2020-11-15] MEDS: CEFEPIME 2 GM in SODIUM CHLORIDE 0.9% 100 ML IVPB SCH ×2 (08:38→21:05)
[2020-11-15] MEDS: PREGABALIN 100 MG CAP PO SCH ×2 (08:38→21:04)
[2020-11-15] MEDS: ATORVASTATIN 20 MG TAB PO SCH (08:38)
[2020-11-15] MEDS: CHLORHEXIDINE GLUCONATE 15 ML CUP MUCOUS MEM SCH ×2 (08:38→21:03)
[2020-11-15] MEDS: ASCORBIC ACID 500 MG TAB PO SCH (08:38)
[2020-11-15] MEDS: CHOLECALCIFEROL 25 MCG (1000 IU) TABLET PO SCH (08:38)
[2020-11-15] MEDS: DEXAMETHASONE SOD PHOSPHATE 10 MG/ML 1 ML VIAL IV SCH (08:38)
[2020-11-15] MEDS: LOSARTAN 50 MG TAB PO SCH (08:39)
[2020-11-15] MEDS: TOPIRAMATE 25 MG TAB PO SCH ×2 (08:39→21:04)
[2020-11-15] MEDS: LIDOCAINE 5% PATCH TOPICAL SCH (08:39)
[2020-11-15] MEDS: LINAGLIPTIN 5 MG TABLET PO SCH (08:40)
[2020-11-15] MEDS: ENOXAPARIN 40 MG/0.4 ML SYRINGE SQ SCH (08:42)
--- NOTE | 2020-11-15 09:44 | P.PN ---
Subjective Progress Note Date: 11/15/20 Acute on chronic hypoxic respiratory failure secondary to covid 19 pneumonitis. This is a 58-year-old female patient with COVID 19 related pneumonia. The patient has developed progressive worsening and hypoxic respiratory failure secondary to coronavirus/COVID 19 pneumonia. The patient was treated with a combination of treatment including Remdesivir and steroids and the patient was also treated with colchicine. The patient was given anticoagulation with Lovenox. With progressive respiratory failure, the patient was placed on high flow oxygen and subsequently the patient was switched to BiPAP for respiratory support. The patient was initially a DNR/DNI status and somewhat at a later stage she changed her mind and she was consented for short-term intubation mechanical ventilation if needed. She did not want any form of long-term aspiratory support, tracheostomy and feeding tube. The patient currently is on a BiPAP at a pressure of 12/6 cm of water and FiO2 of 100%. Chest x-ray has not shown any significant improvement. For now, the patient is on BiPAP for r espiratory support, she is receiving colchicine 0.6 mg by mouth twice a day. She is on Lovenox 40 mg subcu every 12 hours. She is on Levemir insulin 15 units at bedtime in addition to a sliding scale coverage. She is receiving albuterol HFA 4 puffs every 4 hours when necessary and his Symbicort on a 160/4.52 puffs twice a day. The patient is also on IV Solu-Medrol 60 mg every 6 hours. The patient is also on antibiotic coverage with vancomycin. The patient is on BiPAP at a pressure of 12/6 cm of water with an FiO2 of 100%. The chest x-ray shows stable findings. While on the BiPAP, she is able to generate a tidal volume as high as 800. Nevertheless she is quite tachypneic and her min tonawanda ventilation is around 18-20 L per minute. Her pulse ox is order of 91%. Even while being given her medication, she seems to be desaturating out of it. Otherwise, she is hemodynamically stable. No chest pain. No altered mentation. No fever. No chills. She was unable to eat and she is currently on TPN for nutritional support. On 11/07/2020, the patient is being seen in follow-up. The patient was intubated yesterday and postintubation she became profoundly hypoxic and based on that, the appropriate ventilator changes were done. I ultimately put the patient on an assist-control mode at the rate of 78 with a tidal volume of 350 and the PEEP was at 20 with an FiO2 of 100%. Subsequently, we were able to wean down the PEEP down to 75%. The most recent blood gases was a 75% FiO2 showed a pH of 7.33 with a pCO2 of 51 and pO2 of 139. She is currently in a prone body positioning. I'm going to liver back to supine today after being thrown for the past 16 hours. No chest x-rays available from today. Meanwhile, the patient has a peak airway pressure that around 33 while she is been in a prone body position. On today's evaluation, she is sedated with propofol which is currentl y running at 45 micrograms per KG per minute. She is still on TPN for nutritional support. She is hemodynamically stable on no pressors. IV fluids are all. She has a PICC line and she also has an arterial line. On today's blood work, his CRP level is up to 179, pro calcitonin from yesterday was 0.1, her LDH level is at 782, there was a causative 12.6 with a hemoglobin of 12.6. Platelet count is at 96. Renal function stable with a creatinine of 0.1. The net fluid balance over the past 24 hours is been negative to 45 mL. The patient remains on Decadron 20 mg IV, colchicine 0.6 mg by mouth twice a day, she is also on zinc sulfate and multivitamins. Antibiotic coverage is with IV cefe pime. Lovenox Discontinued yesterday as the patient developed coffee-ground emesis and this was also noted in her OG. Based on that, no enteral feeding has been done and the patient is still on TPN for nutritional support. Patient was reevaluated today on 11/08/2020, patient remains in the ICU, intubated and mechanically ventilated. She is presently on assist control mode of mechanical ventilation, tidal volume is 350 rate of 28 FiO2 60% PEEP was 18 and I cut it down to 16. ABG showed a pO2 of 106 pCO2 of 67 pH of 7.30. Patient is now in prone position. She remains on propofol at 45 mcg/kg/m, she is also on TPN. She is not requiring any pressors. Chest x-ray showed significant interstitial edema involving the right lung, more so than the left lung. CBC showed WBC count of 14.4, hemoglobin is 11.4 d-dimer is 1.90, electrolytes and renal profile are normal LDH is 745 C-reactive protein 83.1 blood sugar is 168. Patient is on TPN. Continues to have some coffee-ground material in the orogastric tube. Patient has been intermittently in prone position for about 16 hours. And this morning she was still in prone position from earlier today. After reviewing the ABG, I recommended cutting down the PEEP from 18-16 and kept her on 60% FiO2. Patient remains on Decadron, colchi cine, she is also on zinc and multivitamins. Remains on cefepime, Lovenox is presently on hold. Reevaluated today on 11/09/2020, patient remains in the ICU, intubated and mechanically ventilated. She is back in a prone position this morning. Her ventilator settings are assist control rate of 28 tidal volume 350 FiO2 is 60% PEEP is 16 after reviewing her ABG, I cut down her PEEP down to 14 and her FiO2 is down to 55%. ABG showed a pO2 of 114 pCO2 of 67 pH of 7.31. Patient remains on propofol at 45 mcg/kg/m, she is also on TPN which is presently on hold and the patient is receiving enteral feeding. Patient was intubated on 11/06/2020, and she has been intermittently late in prone positioning. Chest x-ray continues to show bilateral infiltrates, right more so than left. CBC is relatively normal. Basic metabolic profile is normal. Renal profile is normal. C-reactive protein is 36 and her LDH is 593, both are trending down Patient was reevaluated today on 11/10/2020, patient remains in the ICU, remains intubated and mechanically ventilated. Her ventilator settings are assist co ntrol rate of 28, tidal volume 350 FiO2 is down to 55% this morning and the PEEP is down to 12. ABG on 60% and PEEP of 14 showed a pO2 of 109 pCO2 of 59 pH of 7.38. Patient remains on TPN, up to goal, propofol at 45 mcg/kg/m, I will fluid at KVO. Pressure is 25 her plateau pressure is 20 chest x-ray continues to show diffuse interstitial infiltrates bilaterally. Right more so than left. Today after reevaluating the patient, I have recommended cutting down the PEEP to 12 and FiO2 down to 50%. I also increased the flow to 75 L/m. Patient is now in prone position, however when she is in supine position, I have instructed holding sedation, and assessment of mental status today this afternoon. Chest x-ray was reviewed CBC is relatively normal ABG was reviewed. Basic metabolic profile is normal and her renal profile is normal. Liver profile is relatively unremarkable except for slightly elevated transaminases. Patient remains on the Coumadin 19 cocktail, she is also on cefepime. Colchicine Decadron 6 mg IV push daily, insulin Trileptal, Protonix, and zinc. Is also on cefepime which I will continue for the time being. Patient was reevaluated today on 11/11/2020, remains in the ICU, intubated and mechanically ventilated, intermittently in prone position for 16 hours every da y. Today she is back in prone position, however considering the patient's improvement in oxygenation, I was able to cut down her FiO2 to 50%, and her PEEP is down to 12. Patient was awakened yesterday, sedation was placed on hold, and the patient was appropriate according to the nurse taking care of the patient, and she was following very simple instructions. Chest x-ray continues to show diffuse bilateral infiltrates. Patient remains on TPN, and she'll be transitioned today to enteral feeding. ABG showed a pO2 of 97 pCO2 of 59 pH of 7.37. Her ventilator settings at present are FiO2 of 50% PEEP of 12 tidal volume is 350 Patient was reevaluated today on 11/12/2020, patient remains in the ICU, remains intubated and mechanically ventilated. She is not in prone position today anymore, her ventilator settings are assist control rate 28 tidal volume is 350 FiO2 50% and PEEP of 12. ABG showed a pO2 of 67 pCO2 of 53 pH of 7.40. Patient is on IV fluid at KVO, propofol at 35 mcg/kg/m, she is also on enteral feeding, and TPN is off. Chest x-ray is showing slight improvement especially on the left side. Patient is arousable even with propofol on board, and she'll follow simple instructions like wiggling toes and squeezing hands. However she is noted to be generally weak, and considering his overall picture I believe the patient has critical illness polyneuropathy. Hence I am feeling that the patient will not wean easily, and tracheostomy and PEG tube placement would be appropriate at this time. We will consult general surgery for possible tracheostomy in the next 24 hours CBC is relatively normal ABG as noted above electrolytes are normal renal profile is normal. Liver enzymes are normalizing. Reevaluated today on 11/13/2020, patient remains in the ICU, intubated and mechanically ventilated. Her ventilator settings are assist control rate of 28 tidal volume 350 FiO2 50% and PEEP of 12. No chest x-ray was done this morning, however the patient will have a chest x-ray post tracheostomy sometime later today. ABG showed a pO2 of 71 pCO2 of 50 pH of 7.41. Patient remains on propofol at 40 mcg/kg/m, and she remains on cefepime empirically. Blood cultures and sputum cultures have been negative over the last couple of weeks. Urine culture has also been negative. Patient is arousable, follows simple instructions. And yesterday I had a long discussion with her daughter and her sister regarding tracheostomy and PEG tube placement. Initially they were relu ctant to have the procedure done, however as I explained the purpose of the procedure and the goal, they became agreeable for the procedure. Patient was reevaluated today on 11/14/2020, patient underwent tracheostomy and PEG tube placement yesterday. However as soon as she arrived to the ICU, tiffanie ch required increase in her FiO2 and increase in her PEEP because she came back to desaturating significantly. Chest x-ray was basically about the same, the tracheostomy tip was very close to the sancho but was not in the right mainstem bronchus. Patient had adjustment of her tracheostomy, placed on 100% FiO2, increased the PEEP to 16, and recommended mostly sedation overnight. This morning patient had ABG on 80% FiO2 with tidal volume of 350 rate of 34 and PEEP was at 16, ABG showed pO2 of 163 pCO2 of 52 pH of 7.41. Hence patient was placed on a PEEP of 14, cut down her FiO2 back to 50%, and I plan to titrate her PEEP down further over the next 24 hours hopefully back to 12 or 10. Patient is on propofol at 45 mcg/kg/m, and I cut it down to 25 pg/kg/m. Patient is arousable while on propofol, and she follows simple instructions. Enteral feeding will be restarted today via PEG tube which was placed yesterday. Lovenox remains on hold, however I will restart Lovenox today, patient developed erosive gastritis when she was on Lovenox and we had it on hold for the last 1 week chest x-ray today showed slight improvement in her interstitial infiltrates especially on the left side. CBC showed the PEEP cigar of 9 hemoglobin 9.5. Electrolytes are normal. Bicarb is 34, renal profile is normal. Liver enzymes are significantly improved just above normal On 11/15/2020 the patient is being seen in follow-up in the intensive care unit. The patient has code 19 related pneumonia with ARDS and she had prolonged respiratory failure requiring intubation mechanical ventilation and ultimately the patient had a chest tube insertion on 11/13/2020. This morning, the patient is still sedated with propofol and we are in the process of weaning off the sedation gradually. She is running at 30 mics for respiratory kilo gram per minute. No agitation. She is calm and comfortable and safe is a mechanical ventilator. She remains on assist control mode at the rate of 34 with a tidal v olume of 350 and if low of 75 with an inspiratory +0.2 seconds and an FiO2 of 50% with a PEEP of 14. Peak pressures around 30. I:E ratio is 1:1. The blood gases from today is showing a pH of 7.45 with a pCO2 of 45 and a pO2 of 86. The chest x-ray from today has not been done. A chest x-ray from yesterday was showing bilateral interstitial pulmonary infiltrates with more so the consolidation of the right lower lobe area and the patient has a Bivona tracheostomy tube in place. No major changes in the chest x-ray findings. The white cell count is at 7. She is afebrile. She has a normal renal function. Inflammatory markers including LDH was down to 505 and a CRP was down to 31 on 11/11/2020. She remains on Decadron 6 mg IV every 24 hours. She is back on Lovenox 40 mg subcu every 24 hours and the patient is not showing any signs of bleeding. She is started on enteral feeding via her PEG tube and she is receiving vital high protein at the rate of 27 mL an hour. No abdominal dis tention. No increases he was for now. No signs of any GI bleeding for now. She is on Levemir insulin 36 units once a day. Objective - Vital Signs Vital signs: Vital Signs Temp 99.5 F 11/15/20 08:00 Pulse 73 11/15/20 09:00 Resp 34 H 11/15/20 09:00 BP 95/47 11/15/20 09:00 Pulse Ox 94 L 11/15/20 09:00 Intake & Output 11/14/20 11/15/20 11/15/20 18:59 06:59 18:59 Intake Total 510.104 703 257 Output Total 510 525 100 Balance 0.104 178 157 Weight 84.5 kg Intake: IV 256 276 69 .9 NS pressure bag 36 36 9 0.9NS 220 240 60 Intake, IV Titration 147.104 100 50 Amount propofoL 500 mg In Empty 147.104 100 50 Bag 1 bag @ Titrate IV . Q0M [facility] Rx#:[id number] Tube Feeding 77 237 108 Other 30 90 30 Output: Urine 510 525 100 Other: Voiding Method Indwelling Catheter Indwelling Catheter Indwelling Catheter ABP, PAP, CO, CI - Last Documented Arterial Blood Pressure 79/65 - Exam Physical Exam: Revealed a 60-year-old female, on mechanical ventilation via tracheostomy. The patient has a Bivona tracheostomy tube in place pH is quite successful mechanical ventilator. Head: Atraumatic, normocephalic. Tracheostomy is intact. HEENT: Neck is supple and there is no JVDs no goiter or neck masses patient is a tracheostomy tube in place and this is a Bivona tracheostomy tube #8 monocytes along Chest: [Symmetrical chest expansion, crackles persist bilaterally at the bases especially at the right base. Cardiac exam revealed the PMI to be normally situated and sized. The rhythm was regular and no extrasystoles were noted during several minutes of auscultation. The first and second heart sounds were normal and physiologic splitting of the second heart sound was noted. There were no murmurs, rubs, clicks, or gallops. Abdominal exam revealed normal bowel sounds. The abdomen was soft, non-tender, and without masses, organomegaly, or appreciable enlargement of the abdominal aorta. The patient is a PEG tube in place Examination of the extremities revealed easily palpable radial, femoral and pedal pulses. There was no cyanosis, clubbing or edema. Skin: No rashes. Neurological Exam: Arousable, even on propofol, the patient follows simple instructions. Like squeezing hands wiggling toes and closing eyes. Psychiatric: Unable to perform - Labs CBC & Chem 7: 11/15/20 03:16 11/15/20 03:16 Labs: Abnormal Lab Results - Last 24 Hours (Table) 11/14/20 11/14/20 11/14/20 Range/Units 09:51 12:27 16:38 RBC (3.80-5.40) m/uL Hgb (11.4-16.0) gm/dL Hct (34.0-46.0) % RDW (11.5-15.5) % Lymphocytes # (1.0-4.8) k/uL ABG HCO3 (21-25) mmol/L ABG Total CO2 (19-24) mmol/L ABG O2 Saturation (94-97) % Carbon Dioxide (22-30) mmol/L BUN (7-17) mg/dL POC Glucose (mg/dL) 117 H 136 H 142 H (75-99) mg/dL Calcium (8.4-10.2) mg/dL AST (14-36) U/L ALT (4-34) U/L Total Protein (6.3-8.2) g/dL Albumin (3.5-5.0) g/dL 11/15/20 11/15/20 11/15/20 Range/Units 03:16 03:16 05:55 RBC 3.05 L (3.80-5.40) m/uL Hgb 8.6 L (11.4-16.0) gm/dL Hct 27.2 L (34.0-46.0) % RDW 15.9 H (11.5-15.5) % Lymphocytes # 0.9 L (1.0-4.8) k/uL ABG HCO3 32 H (21-25) mmol/L ABG Total CO2 33 H (19-24) mmol/L ABG O2 Saturation 98.2 H (94-97) % Carbon Dioxide 33 H (22-30) mmol/L BUN 29 H (7-17) mg/dL POC Glucose (mg/dL) (75-99) mg/dL Calcium 8.3 L (8.4-10.2) mg/dL AST 45 H (14-36) U/L ALT 52 H (4-34) U/L Total Protein 5.2 L (6.3-8.2) g/dL Albumin 2.6 L (3.5-5.0) g/dL Microbiology - Last 24 Hours (Table) 11/13/20 12:25 Gram Stain - Preliminary Sputum Sputum Culture - Preliminary Aspergillus species 11/08/20 20:58 Blood Culture - Final Blood No Growth after 144 hours Assessment and Plan Plan: #1. Acute on chronic hypoxemic respiratory failure secondary to acute COVID 19 pneumonitis, status post remdesivir, steroids/ Decadron and colchicine, and prone positioning , intubated and placed on a mechanical ventilator for around a week and subsequently the patient had a tracheostomy tube inserted in combination with a PEG tube insertion on 11/13/2019. For now, the patient is on a mechanical ventilator. Her inflammatory markers have dropped including LDH and CRP and the d-dimer was at 1.9. The patient was restarted on Lovenox for D VT prophylaxis at a dose of 40 mg subcu on a daily basis. Chest x-ray shows essentially unchanged bilateral coarse pulmonary infiltrates with some worsening consolidation of the right lower lobe. The patient and a PEEP of 14 with an FiO2 of 50% and the patient hasn't respiratory +0.2 seconds with a I:E ratio of 1-1 year . chest x-ray was noted. The blood gases was noted. #2. History of COPD #3. Elevated transaminases secondary to COVID 19 infection #4. Type 2 diabetes mellitus, currently on Levemir insulin 36 units at bedtime addition to a slight scale coverage, and addition to oral hypoglycemic medication including Januvia and Tradjenta. She is receiving EN for nutritional support #5. History of obstructive sleep apnea syndrome #6. Dyslipidemia #7. History of degenerative joint disease #8. History of bipolar disorder #9 upper GI bleed with an underlying coffee-ground emesis while the patient was being treated with Lovenox. Anticoagulation was stopped and the patient was treated with IV Protonix. Bleeding subsequently recovered. The patient was started on enteral feeding for nutritional support via PEG tube. #10 generalized weakness with critical illness polyneuropathy and motor weakness Plan: Continue Decadron @ 6 mg IV every 24 hours Stop the Tradjenta Remove the inspiratory pause from the ventilator setting, I noted that the patient is able to generate a larger tidal volume on a mechanical ventilator. Based on that, increase the tidal volume to 400s, especially to obesity plus mode, I placed on a I time of 0.9 seconds and current peak air pressures around 27. The follow-up blood gases is to follow. Discontinue the Symbicort Wean off propofol and assess the patient's mental status Continue the Lovenox Enteral feeding for nutritional support via PEG tube Monitor for any signs of GI bleeding Condition is critical and we'll keep the patient ICU for now. Condition is critical. Intubation process will be done in the ICU and will make further recommendations based on her progress. Critical care evaluation, >30min. Time with Patient: Greater than 30
[2020-11-15 09:48] LABS: Glucose,Whole Blood 99 mg/dL (75-99)
--- NOTE | 2020-11-15 10:28 | P.PN ---
Subjective Progress Note Date: 11/15/20 Principal diagnosis: Respiratory failure Patient stable on the ventilator. Tolerating tube feeds at goal of 27 mL per hour. She is afebrile. White blood cell count normal. Objective - Vital Signs Vital signs: Vital Signs Temp 99.5 F 11/15/20 08:00 Pulse 80 11/15/20 10:00 Resp 27 H 11/15/20 10:00 BP 110/53 11/15/20 10:00 Pulse Ox 93 L 11/15/20 10:00 Intake & Output 11/14/20 11/15/20 11/15/20 18:59 06:59 18:59 Intake Total 510.104 703 307 Output Total 510 525 130 Balance 0.104 178 177 Weight 84.5 kg Intake: IV 256 276 92 .9 NS pressure bag 36 36 12 0.9NS 220 240 80 Intake, IV Titration 147.104 100 50 Amount propofoL 500 mg In Empty 147.104 100 50 Bag 1 bag @ Titrate IV . Q0M [facility] Rx#:[id number] Tube Feeding 77 237 135 Other 30 90 30 Output: Urine 510 525 130 Other: Voiding Method Indwelling Catheter Indwelling Catheter Indwelling Catheter ABP, PAP, CO, CI - Last Documented Arterial Blood Pressure 79/65 - Exam Trach site clean, tracheostomy ties changed yesterday Abdomen: Soft, nondistended, minimal tenderness, PEG tube in place - Labs CBC & Chem 7: 11/15/20 03:16 11/15/20 03:16 Labs: Abnormal Lab Results - Last 24 Hours (Table) 11/14/20 11/14/20 11/15/20 Range/Units 12:27 16:38 03:16 RBC 3.05 L (3.80-5.40) m/uL Hgb 8.6 L (11.4-16.0) gm/dL Hct 27.2 L (34.0-46.0) % RDW 15.9 H (11.5-15.5) % Lymphocytes # 0.9 L (1.0-4.8) k/uL ABG HCO3 (21-25) mmol/L ABG Total CO2 (19-24) mmol/L ABG O2 Saturation (94-97) % Carbon Dioxide (22-30) mmol/L BUN (7-17) mg/dL POC Glucose (mg/dL) 136 H 142 H (75-99) mg/dL Calcium (8.4-10.2) mg/dL AST (14-36) U/L ALT (4-34) U/L Total Protein (6.3-8.2) g/dL Albumin (3.5-5.0) g/dL 11/15/20 11/15/20 Range/Units 03:16 05:55 RBC (3.80-5.40) m/uL Hgb (11.4-16.0) gm/dL Hct (34.0-46.0) % RDW (11.5-15.5) % Lymphocytes # (1.0-4.8) k/uL ABG HCO3 32 H (21-25) mmol/L ABG Total CO2 33 H (19-24) mmol/L ABG O2 Saturation 98.2 H (94-97) % Carbon Dioxide 33 H (22-30) mmol/L BUN 29 H (7-17) mg/dL POC Glucose (mg/dL) (75-99) mg/dL Calcium 8.3 L (8.4-10.2) mg/dL AST 45 H (14-36) U/L ALT 52 H (4-34) U/L Total Protein 5.2 L (6.3-8.2) g/dL Albumin 2.6 L (3.5-5.0) g/dL Microbiology - Last 24 Hours (Table) 11/13/20 12:25 Gram Stain - Preliminary Sputum Sputum Culture - Preliminary Aspergillus species 11/08/20 20:58 Blood Culture - Final Blood No Growth after 144 hours Assessment and Plan (1) Pneumonia due to COVID-19 virus Narrative/Plan: Patient stable on the ventilator. Continue weaning. Continue tube feeds at goal. Current Visit: Yes Status: Acute Code(s): U07.1 - COVID-19; J12.82 - Pneumonia due to coronavirus disease 2018 SNOMED Code(s): 957340662721965698
[2020-11-15 11:37] LABS: Glucose,Whole Blood 104 mg/dL (75-99)
[2020-11-15] MEDS: MORPHINE SULFATE 2 MG/ML SYRINGE IVP PRN ×2 (12:54→21:15)
--- NOTE | 2020-11-15 13:17 | P.PN ---
Progress Note - Text Progress Note Date: 11/15/20 Chief Complaint: Short of breath History of presenting complaint: This is a 60-year-old patient who follows with Yajaira Barber. Chronic stable medical conditions include diabetes, fibromyalgia, GERD, hypertension, hyperlipidemia, osteoarthritis, obstructive sleep apnea. She is on 3 L of nasal cannula home. Night has been getting it more often lately. Diabetic peripheral neuropathy, obstructive sleep apnea does not use CPAP, chronic kidney disease, arthritis in multiple joints, bipolar schizoaffective disorder. Patient presents of 1 week of increasing shortness of breath. Cough. Slight phlegm. Has had fever for 2 days. Decrease appetite some headaches no loss of taste or smell. No diarrhea. Body aches all over. Patient tested for COVID 19 in the ER. Still somewhat tired rundown. Admitted with bilateral COVID 19 pneumonia, acute hypoxic respiratory failure, acute COPD exacerbation. Patient was started on dexamethasone, Lovenox, Remdesivir, vitamin C vitamin D and zinc. Pulmonary was consulted. Patient has been requiring BiPAP. On October 28 because of increasing oxygen requirement patient is moved to the ICU. Patient was started on IV cefepime and vancomycin. Given convalescent plasma on October 30. PICC line placed-started on TPN and lipids. intubated November 06. November 13-PEG tube and tracheostomy tube done Today-ICU: Ventilator-FiO2 50 and a PEEP of 5. Tachycardia. 2 feeding at goal at 20 mL an hour. Awake. Following commands Review of systems: Patient intubated Active Medications Acetaminophen (Acetaminophen Tab 325 Mg Tab) 650 mg PO Q6HR PRN PRN Reason: Fever and/ or Pain Last Admin: 11/05/20 00:06 Dose: 650 mg Documented by: Albuterol Sulfate (Albuterol Hfa Inhaler) 4 puff INHALATION Q4H [facility] Last Admin: 11/15/20 11:25 Dose: 4 puff Documented by: Aripiprazole (Aripiprazole 10 Mg Tab) 10 mg PO HS [facility] Last Admin: 11/14/20 21:47 Dose: 10 mg Documented by: Aripiprazole (Aripiprazole 20 Mg Tab) 20 mg PO DAILY [facility] Last Admin: 11/15/20 08:32 Dose: 20 mg Documented by: Artificial Tears (Artificial Tears-Hypromellose Drops 15 Ml Btl) 1 drops BOTH EYES QID PRN PRN Reason: Dry Eye(s) Last Admin: 10/29/20 18:47 Dose: 1 drops Documented by: Ascorbic Acid (Ascorbic Acid 500 Mg Tab) 500 mg PO DAILY [facility] Last Admin: 11/15/20 08:38 Dose: 500 mg Documented by: Atorvastatin Calcium (Atorvastatin 20 Mg Tab) 20 mg PO DAILY [facility] Last Admin: 11/15/20 08:38 Dose: 20 mg Documented by: Chlorhexidine Gluconate (Chlorhexidine Gluconate 15 Ml Cup) 15 ml MUCOUS MEM BID [facility] Last Admin: 11/15/20 08:38 Dose: 15 ml Documented by: Cholecalciferol (Cholecalciferol 25 Mcg (1000 Iu) Tablet) 100 mcg PO DAILY [facility] Last Admin: 11/15/20 08:38 Dose: 100 mcg Documented by: Clonazepam (Clonazepam 0.5 Mg Tab) 0.5 mg PO HS [facility] Last Admin: 11/14/20 21:47 Dose: 0.5 mg Documented by: Dexamethasone Sodium Phosphate (Dexamethasone Sod Phosphate 10 Mg/Ml 1 Ml Vial) 6 mg IV DAILY [facility] Last Admin: 11/15/20 08:38 Dose: 6 mg Documented by: Enoxaparin Sodium (Enoxaparin 40 Mg/0.4 Ml Syringe) 40 mg SQ DAILY [facility] Last Admin: 11/15/20 08:42 Dose: 40 mg Documented by: Cefepime HCl 2 gm/ Sodium (Chloride) 100 mls @ 25 mls/hr IVPB Q12HR [facility] Last Admin: 11/15/20 08:38 Dose: 25 mls/hr Documented by: Propofol 500 mg/ IV Solution 50 mls @ 0 mls/hr IV .Q0M [facility]; Protocol Last Admin: 11/15/20 07:45 Dose: 45 mcg/kg/min, 22.815 mls/hr Documented by: Insulin Aspart (Insulin Aspart (Novolog) 100 Unit/Ml Vial) 0 unit SQ Q4H [facility]; Protocol Last Admin: 11/15/20 05:27 Dose: Not Given Documented by: Insulin Detemir (Insulin Detemir (Levemir) 100 Unit/Ml Syr) 36 unit SQ HS [facility] Last Admin: 11/14/20 21:46 Dose: 36 unit Documented by: Lamotrigine (Lamotrigine 100 Mg Tab) 150 mg PO BID [facility] Last Admin: 11/15/20 08:37 Dose: 150 mg Documented by: Lidocaine (Lidocaine 5% Patch) 1 patch TOPICAL DAILY [facility] Last Admin: 11/15/20 08:39 Dose: 1 patch Documented by: Losartan Potassium (Losartan 50 Mg Tab) 50 mg PO DAILY [facility] Last Admin: 11/15/20 08:39 Dose: Not Given Documented by: Meclizine HCl (Meclizine 25 Mg Tab) 25 mg PO Q8H PRN PRN Reason: Nausea And Vomiting Miscellaneous Information (Magnesium Replacement Protocol 1 Each Misc) 1 each MISCELLANE DAILY PRN; Protocol PRN Reason: Per Protocol Miscellaneous Information (Potassium Replacement Protocol 1 Each Misc) 1 each MISCELLANE DAILY PRN; Protocol PRN Reason: Per Protocol Morphine Sulfate (Morphine Sulfate 2 Mg/Ml Syringe) 2 mg IVP Q4H PRN PRN Reason: Pain/Discomfort Last Admin: 11/15/20 12:54 Dose: 2 mg Documented by: Oxcarbazepine (Oxcarbazepine 150 Mg Tab) 150 mg PO BID [facility] Last Admin: 11/15/20 08:32 Dose: 150 mg Documented by: Pantoprazole Sodium (Pantoprazole 40 Mg/10 Ml Vial) 40 mg IVP DAILY [facility] Last Admin: 11/15/20 08:37 Dose: 40 mg Documented by: Pregabalin (Pregabalin 100 Mg Cap) 100 mg PO BID [facility] Last Admin: 11/15/20 08:38 Dose: 100 mg Documented by: Sumatriptan Succinate (Sumatriptan Succinate 50 Mg Tab) 100 mg PO BID PRN PRN Reason: Migraine Headache Topiramate (Topiramate 25 Mg Tab) 50 mg PO BID [facility] Last Admin: 11/15/20 08:39 Dose: 50 mg Documented by: Zinc Sulfate (Zinc Sulfate 220 Mg Cap) 220 mg PO DAILY [facility] Last Admin: 11/15/20 08:37 Dose: 220 mg Documented by: Past medical history to include: COPD, diabetes, fibromyalgia, GERD, hyperlipidemia, hypertension, obstructive sleep apnea does not use CPAP, home oxygen 3 L normal. Night, diabetic peripheral neuropathy, chronic kidney disease, bipolar depression, schizoaffective disorder. Social history: Lives with her daughter. Disabled. Home oxygen. Smoked from 9065 through 2009. In the past used several street drugs but not so since 1989. Physical examination: VITAL SIGNS: 99.5, 80, 27, 110/53, 93% on the ventilator GENERAL: Laying in bed, tracheostomy, awake NEUROLOGICAL: Following commands Physical exam as per pulmonary and nursing INVESTIGATIONS, reviewed in the clinical context: November 15: White count 17 hemoglobin 8.6 platelets 199 potassium 3.6 creatinine 0.75. Chest [id number] infiltrates November 14: WBC 9 hemoglobin 9.5 platelets 237 ABG-pCO2 52, pO2 was 63. Potassium 3.9 creatinine 0.69 November 13: WBC 9.4 hemoglobin 9.8 platelets 227 creatinine 0.65 potassium 3.7 November 08: WBC 40.4 hemoglobin 11.4 d-dimer 1.9 potassium 4.6 creatinine 0.71 CRP 83 November 07: WBC 13.9 hemoglobin 11.7 platelets 270 ABG-pH 7.3 pCO2 64 pO2 131 MRSA nasal screen-negative. November 04: D-dimer 4.4 CRP 40.1 pro-calcitonin 0.11 October 28: D-dimer 0.78 CRP 169 pro-calcitonin 0.38 Chest x-ray from yesterday-scattered infiltrates Admission labs: White count 7.2 hemoglobin 15.1 decreased lymphocytes d-dimer 0.85 potassium 3.3 creatinine 0.90 glucose 205 EST 106 ALT 103 CRP 37.2 procalcitonin 0.27 Influenza type A, type B both not detected. RSV P/Cr-not detected. Coronavirus [PCR]-detected EKG tracing personally reviewed by me-normal sinus rhythm some slight ST segment changes Chest x-ray film personally reviewed by me-bilateral basilar infiltrates Assessment and plan: -Bilateral COVID 19 pneumonia causing sepsis. received Remdesivir. Convalescent plasma. colchicine. Received dexamethasone - Solu-Medrol - d examethasone 20 mg IV daily- currently Decadron, and Lovenox -secondary bacterial pneumonia infection with IV cefepime, [ IV vancomycin.. MRSA nasal screen negative. vancomycin discontinued] -Acute COPD exacerbation in an [id number] to respond -acute hypoxic respiratory failure, requiring BiPAP-; intubated November 06. Slow to respond on the ventilator, but tracheostomy -Diabetes mellitus 2, uncontrolled with hyperglycemia from steroids. Levemir dose being adjusted -Chronic fibromyalgia -GERD -Essential hypertension, on Cozaar -Hyperlipidemia, on Lipitor -Obstructive sleep apnea does not use CPAP -Diabetic peripheral neuropathy -Primary osteoarthritis of multiple joint -TPN and lipids Continue bronchodilators, cefepime, IV Decadron. Patient is off sedation.
--- NOTE | 2020-11-15 19:50 | PN ---
PROGRESS NOTE DATE OF SERVICE: 11/15/2020 REASON FOR FOLLOWUP: Pneumonia. INTERVAL HISTORY: The patient is currently afebrile. The patient is hemodynamically stable, not on any pressor support. FiO2 is currently at 50%. The patient has been tolerating his tube feeds. No diarrhea has been reported or any other changes reported by the nursing staff. PHYSICAL EXAMINATION: Blood pressure 108/53, pulse of 84, temperature 98.9, she is 94% on 50% FiO2. GENERAL DESCRIPTION is a middle-aged female lying in bed in no distress. RESPIRATORY system: Unlabored breathing and is clear to auscultation anteriorly. HEART: S1-S2 regular rate and rhythm. ABDOMEN: Soft. No tenderness. LABS: Hemoglobin 8.6, white count of 7.0 with a BUN of 29, creatinine 0.75. DIAGNOSTIC IMPRESSION AND PLAN: Patient with acute respiratory failure which is multifactorial with a possible component of pneumonia in this patient who was initially admitted to the hospital for Covid 19, has completed Remdesivir therapy. The patient has received almost 2 weeks of IV cefepime and will be discontinued as prescription runs out. No plan to extend antibiotic further. The patient will be monitored closely for now off antibiotic therapy. Continue supportive care. MMODL / IJN: [id number] /
[2020-11-15 20:05] LABS: Glucose,Whole Blood 128 mg/dL (75-99)
[2020-11-15] MEDS: clonazePAM 0.5 MG TAB PO SCH (21:04)
[2020-11-15] MEDS: INSULIN DETEMIR (LEVEMIR) 100 UNIT/ML SYR SQ SCH (21:05)
[2020-11-15] MEDS: ARIPiprazole 10 MG TAB PO SCH (21:06)
[2020-11-15 23:25] LABS: Glucose,Whole Blood 95 mg/dL (75-99)
[2020-11-16] MEDS: ALBUTEROL HFA INHALER INHALATION SCH ×7 (00:19→23:00)
[2020-11-16] MEDS: MORPHINE SULFATE 2 MG/ML SYRINGE IVP PRN ×4 (04:00→23:09)
[2020-11-16 04:21] LABS: Basophils % (A) 0 %; Eosinophils # (A) 0.3 k/uL (0-0.7); Eosinophils % (A) 4 %; HCT 25.6 % (34.0-46.0); HGB 8.4 gm/dL (11.4-16.0); Hypochromasia Slight; Lymphocytes # (A) 0.8 k/uL (1.0-4.8); Lymphocytes % (A) 14 %; MCH 29.3 pg (25.0-35.0); MCHC 32.7 g/dL (31.0-37.0); MCV 89.7 fL (80.0-100.0); Monocytes # (A) 0.4 k/uL (0-1.0); Monocytes % (A) 6 %; Neutrophils # (A) 4.5 k/uL (1.3-7.7); Neutrophils % (A) 75 %; Platelet Count 197 k/uL (150-450); RBC 2.86 m/uL (3.80-5.40); RDW 15.7 % (11.5-15.5)
[2020-11-16 04:40] LABS: ALT 63 U/L (4-34); AST 57 U/L (14-36); African American GFR (CKD) >90 (>60 ml/min/1.73 sqM); Albumin 2.6 g/dL (3.5-5.0); Alkaline Phosphatase 79 U/L (38-126); Anion Gap 4 mmol/L; Blood Urea Nitrogen 25 mg/dL (7-17); Calcium 8.3 mg/dL (8.4-10.2); Carbon Dioxide 29 mmol/L (22-30); Chloride 108 mmol/L (98-107); Glucose 102 mg/dL (74-99); Magnesium 1.9 mg/dL (1.6-2.3); Non-African American GFR(CKD) >90 (>60 ml/min/1.73 sqM); Potassium 3.5 mmol/L (3.5-5.1); Sodium 141 mmol/L (137-145); Total Bilirubin 0.5 mg/dL (0.2-1.3); Total Protein 5.1 g/dL (6.3-8.2)
[2020-11-16 05:17] LABS: ABG Base Excess 5.5 mmol/L; ABG HCO3 30 mmol/L (21-25); ABG Oxygen Saturation 96.1 % (94-97); ABG PCO2 42 mmHg (35-45); ABG PH 7.45 (7.35-7.45); ABG PO2 74 mmHg (83-108); ABG TCO2 31 mmol/L (19-24); Allen Test Performed? Yes
[2020-11-16] MEDS: INSULIN ASPART (NovoLOG) 100 UNIT/ML VIAL SQ SCH ×6 (05:21→20:36)
[2020-11-16 07:23] LABS: Glucose,Whole Blood 118 mg/dL (75-99)
[2020-11-16] MEDS: PANTOPRAZOLE 40 MG/10 ML VIAL IVP SCH (08:02)
[2020-11-16] MEDS: CEFEPIME 2 GM in SODIUM CHLORIDE 0.9% 100 ML IVPB SCH (08:02)
[2020-11-16] MEDS: DEXAMETHASONE SOD PHOSPHATE 10 MG/ML 1 ML VIAL IV SCH (08:02)
[2020-11-16] MEDS: CHOLECALCIFEROL 25 MCG (1000 IU) TABLET PO SCH (08:02)
[2020-11-16] MEDS: CHLORHEXIDINE GLUCONATE 15 ML CUP MUCOUS MEM SCH ×2 (08:02→20:01)
[2020-11-16] MEDS: ATORVASTATIN 20 MG TAB PO SCH (08:03)
[2020-11-16] MEDS: lamoTRIgine 100 MG TAB PO SCH ×2 (08:03→20:02)
[2020-11-16] MEDS: ZINC SULFATE 220 MG CAP PO SCH (08:03)
[2020-11-16] MEDS: OXcarbazepine 150 MG TAB PO SCH ×2 (08:03→20:02)
[2020-11-16] MEDS: ASCORBIC ACID 500 MG TAB PO SCH (08:03)
[2020-11-16] MEDS: LIDOCAINE 5% PATCH TOPICAL SCH (08:03)
[2020-11-16] MEDS: PREGABALIN 100 MG CAP PO SCH ×2 (08:03→20:01)
[2020-11-16] MEDS: TOPIRAMATE 25 MG TAB PO SCH ×2 (08:04→20:02)
[2020-11-16] MEDS: LOSARTAN 50 MG TAB PO SCH (08:10)
[2020-11-16] MEDS: ENOXAPARIN 40 MG/0.4 ML SYRINGE SQ SCH (08:15)
[2020-11-16] MEDS: POTASSIUM CHLORIDE 20 MEQ in WATER FOR INJECTION 1 100ML.BAG IVPB SCH ×2 (08:16→10:00)
--- NOTE | 2020-11-16 09:59 | P.PN ---
Subjective Progress Note Date: 11/16/20 Principal diagnosis: Shortness of breath and fever This is a 60-year-old female with history of multiple medical problems including hypertension, type 2 diabetes, dyslipidemia, COPD, fibromyalgia, patient is also known to have history of obstructive sleep apnea, noncompliant with CPAP, patient uses mostly oxygen at night at 2 L. She is compliant with her oxygen for her presumptive obstructive sleep apnea syndrome and underlying COPD. Patient presented to the ER yesterday with 2 days history of shortness of breath, fever as high as 103, nonproductive cough, but she had no other symptoms, patient has chronic headaches, denies any loss of sensation of taste or smell. Denies any nausea vomiting abdominal pain melena or hematemesis. Patient denies exposure to Mayer virus, however she lives with her daughter was supposedly healthy at home. At any rate patient had a chest x-ray upon presentation to the ER that showed bibasilar infiltrates, the infiltrates were noted to be peripheral, and she had a PCR for covid 19 which came back positive. Patient was placed on 6 L nasal cannula, and her O2 saturations are 93%, she was later transitioned to 5 L and her O2 saturation remained at 95%. Considering her Covid 19 pneumonia, this consult was initiated. We saw the p atient on consultation, recommended that we start the patient on remdesivir, will also recommended starting the patient on the Covid 19 cocktail, and also started colchicine at 0.6 mg by mouth twice a day. Upon presentation the patient had a temp of 102.4, and her temp this morning is 98.9. Patient had a relatively normal CBC. Normal platelets. She had lymphopenia. And she had a relatively normal electrolytes. Inflammatory markers including LDH and C- reactive protein with 645 and 37.2 respectively. On 10/22/2020 patient seen in follow-up, she is awake and alert, she remains on 6 L of oxygen her pulse ox is 90-93%, she is breathing comfortably, although still having fever spikes, with a T-max of 101.8F this morning, today's day 2 of Remdesivir, we added colchicine, she is on oral Decadron 6 mg daily, she is on prophylactic dose of Lovenox, in addition to vitamins. Today's labs have been reviewed, showing d-dimer of 0.85, CRP is down to 4.6, associated LDH value from today, her pro-calcitonin level was 0.27, her influenza and RSV screen were negative. On 10/23/2020 patient seen in follow-up on medical floor, she is awake and alert, oriented 3, she is wheezy, has a congested cough, she is currently on 2 L of oxygen her pulse ox is between 87-93%, she still having some low-grade fevers, today's chest x-ray showing patchy perihilar and basilar infiltrates without significant change. Patient remains on Remdesivir, today is day 3 of treatment, in addition to Decadron, prophylactic doses of Lovenox in her d-dimer remains low at 0.62, in addition to vitamins and colchicine. Her inflammatory markers are coming down, her procalcitonin level was not elevated to 0.27 On 10/26/2019 patient seen in follow-up on medical floor, she is currently on high flow oxygen per year flow at 50 L and FiO2 of 82%, and her pulse ox is 91%, she states his breathing comfortably, overall her breathing is better, she is feeling better, she's had that no fever or chills, hemodynamically stable, no chest discomfort. 0.9 normal saline is infusing at 20 ML per hour, chest x-ray today showed coarse perihilar and basilar infiltrates unchanged from prior study. She finished her Remdesivir treatment yesterday, she remains on bronchodilators, she remains on dexamethasone 6 mg daily, subcu Lovenox 40 mg twice daily, oral Pepcid, vitamin C D and zinc. Today's labs have been reviewed, CBC is within normal limits, d-dimer 0.49, renal profile is unremarkable, CO2 was mildly elevated at 32, the rest of electrolytes were within normal limits, LDH is 346, and CRP is 2.3. No Altered mentation, patient is tolerating oral diet, no nausea vomiting no abdominal pain On 10/27/2020 patient seen in follow-up on medical floor. Patient remains on high flow oxygen per [employer] with 50 L and FiO2 of 82%, and her pulse ox has been 87-89%, patient feels more dyspneic on today's exam, she did have a fever spike earlier today in the morning however it is not recorded. She is coughing, however her cough is dry, nonproductive. No chest pain. Today's chest x-ray shows patchy perihilar basilar infiltrates noted to be slightly improved. Patient remains on empiric antibiotics in the form of Rocephin, she is on 6 mg oral dose of Decadron on a daily basis, she is on Lovenox 40 mg twice a day, patient to vitamin C D and zinc. Her last d-dimer yesterday was 0.49, today's labs have been reviewed. Pro-calcitonin is 0.22 on today's labs, inflammatory markers are improving. On 10/28/2020 patient seen in follow-up in intensive care unit. Patient was transferred from the medical surgical floor to the intensive care unit yesterday in view of worsening dyspnea and hypoxemia, patient is on BiPAP support with pressures of 12 and 6 and FiO2 of 100%. Patient was febrile in the last 24 hours, with a T-max of 101.5F. Low-grade fevers overnight. today's chest x-ray shows nonspecific bibasilar infiltrates similar to prior exam.this morning his blood gases revealed pO2 of 65 pCO2 46, and pH of 7.45 this was done on FiO2 100%, CBC was within normal limits except with a lymphocyte count which was low at 0.7, d-dimer today 0.65, sodium is 131, potassium 3.3, chloride is 90, CO2 is 32. CRP is up to 179, LDH is 757. patient continues on cefepime and vancomycin for empiric antibiotic coverage, Decadron and yesterday she received 1 dose of IV Lasix. Anticoagulation in the form of Lovenox 40 mg twice daily. On 2020 patient seen in follow-up in the intensive care unit, she is currently on VC plus mode of ventilation with a rate of 34, target volume of 400, FiO2 of 50% and PEEP of 14, inspiratory time is 0.9. This morning blood gases revealed a pO2 of 74, pCO2 42, and pH 7.45. She is currently lightly sedated on Diprivan at 20 mics per kilo per minute, 0.9 normal saline is at 20 ML per hour, patient is receiving tube feedings, she is on vital high protein at 27 with a goal of 27 and standard water flushes. Patient is status post tracheostomy and PEG tube placement on 11/13/[address] Tidwell, she is in sinus mechanism, she has not required any vasopressors. Her last chest x-ray was done on the showing coarse infiltrates throughout both lungs with more consolidative processes at the right lung base, improving basilar aeration was noted. This morning's labs have been reviewed, white blood cell count of 6.0, hemoglobin is 8.4, sodium is 141, potassium 3.5, chloride was 108, CO2 is 29, BUN is 25, creatinine 0.7. AST was 57, ALT was 63, alkaline phosphatase was 79. Cultures have been reviewed, bloody urine have been negative, latest sputum culture from 11/13/2020 revealed Aspergillus fumigatus. ID service is following, patient is currently on cefepime. Patient remains on 6 mg of dexamethasone IV daily, she is on prophylactic dose of Lovenox 40 mg daily. Patient has been producing 30-50 ML of urine on the regular basis. Patient does follow commands and moves all 4 extremities. No new chest x-ray today, patient was rechecked for COVID 19 on 11/11/2020 and was found to be positive Objective - Vital Signs Vital signs: Vital Signs Temp 98.1 F 11/16/20 04:00 Pulse 75 11/16/20 07:00 Resp 34 H 11/16/20 07:00 BP 98/50 11/16/20 07:00 Pulse Ox 93 L 11/16/20 07:00 Intake & Output 11/15/20 11/16/20 11/16/20 18:59 06:59 18:59 Intake Total 921.000 641 23 Output Total 600 525 40 Balance 321.000 116 -17 Intake: IV 299 453 23 .9 NS pressure bag 39 33 3 0.9NS 260 220 20 Cefepime 2 gm In Sodium 200 Chloride 0.9% 100 ml @ 25 mls/hr IVPB Q12HR [facility] Rx #:[id number] Intake, IV Titration 100.000 50 Amount propofoL 500 mg In Empty 100.000 50 Bag 1 bag @ Titrate IV . Q0M [facility] Rx#:[id number] Tube Feeding 432 108 Other 90 30 Output: Urine 600 525 40 Other: Voiding Method Indwelling Catheter Indwelling Catheter Indwelling Catheter ABP, PAP, CO, CI - Last Documented Arterial Blood Pressure 79/65 - Exam GENERAL EXAM: Intubated, sedated, trached to the mechanical ventilator 60-year-old white female, with FiO2 of 50% and PEEP of 14 HEAD: Normocephalic/atraumatic. EYES: Normal reaction of pupils, equal size. Conjunctiva pink, sclera white. NOSE: Clear with pink turbinates. THROAT: No erythema or exudates. NECK: No masses, no JVD, no thyroid enlargement, no adenopathy. CHEST: No chest wall deformity. Symmetrical expansion. LUNGS: Equal air entry with no crackles, wheeze, rhonchi or dullness. CVS: Regular rate and rhythm, normal S1 and S2, no gallops, no murmurs, no rubs ABDOMEN: Soft, nontender. No hepatosplenomegaly, normal bowel sounds, no guarding or rigidity. Left upper quadrant PEG tube present EXTREMITIES: No clubbing, no edema, no cyanosis, 2+ pulses and upper and lower extremities. MUSCULOSKELETAL: Muscle strength and tone normal. SPINE: No scoliosis or deformity SKIN: No rashes CENTRAL NERVOUS SYSTEM: Sedated. No focal deficits, tone is normal in all 4 extremities. - Labs CBC & Chem 7: 11/16/20 02:59 11/16/20 02:59 Labs: Abnormal Lab Results - Last 24 Hours (Table) 11/15/20 11/15/20 11/16/20 Range/Units 11:35 20:03 02:59 RBC 2.86 L (3.80-5.40) m/uL Hgb 8.4 L (11.4-16.0) gm/dL Hct 25.6 L (34.0-46.0) % RDW 15.7 H (11.5-15.5) % Lymphocytes # 0.8 L (1.0-4.8) k/uL ABG pO2 (83-108) mmHg ABG HCO3 (21-25) mmol/L ABG Total CO2 (19-24) mmol/L Chloride (98-107) mmol/L BUN (7-17) mg/dL Glucose (74-99) mg/dL POC Glucose (mg/dL) 104 H 128 H (75-99) mg/dL Calcium (8.4-10.2) mg/dL AST (14-36) U/L ALT (4-34) U/L Total Protein (6.3-8.2) g/dL Albumin (3.5-5.0) g/dL 11/16/20 11/16/20 11/16/20 Range/Units 02:59 05:15 07:21 RBC (3.80-5.40) m/uL Hgb (11.4-16.0) gm/dL Hct (34.0-46.0) % RDW (11.5-15.5) % Lymphocytes # (1.0-4.8) k/uL ABG pO2 74 L (83-108) mmHg ABG HCO3 30 H (21-25) mmol/L ABG Total CO2 31 H (19-24) mmol/L Chloride 108 H (98-107) mmol/L BUN 25 H (7-17) mg/dL Glucose 102 H (74-99) mg/dL POC Glucose (mg/dL) 118 H (75-99) mg/dL Calcium 8.3 L (8.4-10.2) mg/dL AST 57 H (14-36) U/L ALT 63 H (4-34) U/L Total Protein 5.1 L (6.3-8.2) g/dL Albumin 2.6 L (3.5-5.0) g/dL Microbiology - Last 24 Hours (Table) 11/13/20 12:25 Gram Stain - Final Sputum Sputum Culture - Final Aspergillus fumigatus Assessment and Plan Plan: Assessment: #1. Acute on chronic hypoxic respiratory failure secondary to acute COVID 19 pneumonitis, influenza and RSV PCR were negative, started Remdesivir treatment on 10/21/2020, completed Remdesivir on 10/25/2020. In addition patient has received steroids in the form of Decadron, colchicine, prophylactic doses of Lovenox. Patient required intubation and placement on mechanical ventilator, had good response with prone positioning, was trached and pegged on 11/13/2020. Patient has been rechecked for COVID 19 on 11/11/2020 and remains positive #2. History of COPD #3. Elevated transaminases secondary to COVID 19 infection #4. Type 2 diabetes mellitus #5. History of obstructive sleep apnea syndrome #6. Dyslipidemia #7. History of degenerative joint disease #8. History of bipolar disorder #9. Upper GI bleed with coffee-ground emesis, resolved, patient was receiving prophylactic doses of Lovenox which was discontinued and reinitiated after resolution of the GI bleeding. Currently tolerating enteral feedings #10. Generalized weakness with critical illness polyneuropathy and more weakness Plan: Continue current medical treatment, vital signs have been stable, patient remains on a PEEP of 14 and FiO2 of 50%, will continue with current vent settings. Continue enteral feedings. Antibiotics per ID service recomme ndations, there have been no fever or chills. Continue current dose Decadron, prophylactic dose of Lovenox. We'll obtain a chest x-ray today. Repeat COVID 19 PCR was noted and patient is still positive. We'll continue to closely follow I performed a history & physical examination of the patient and discussed their management with my nurse practitioner, Melany Stanton. I reviewed the nurse pr actitioner's note and agree with the documented findings and plan of care. Lung sounds are positive for diminished breath sounds. The findings and the impression was discussed with the patient. I attest to the documentation by the nurse practitioner. Time with Patient: Greater than 30
--- NOTE | 2020-11-16 11:07 | P.PN ---
Subjective Progress Note Date: 11/16/20 CHIEF COMPLAINT: Shortness of breath HISTORY OF PRESENT ILLNESS: Patient remains in the ICU she is currently on mechanical ventilation. She is status post tracheostomy and PEG tube placement on 11/13/[address] Herrera. Patient is tolerating tube feedings. She is currently at 27 mL per hour for her to feedings. She is afebrile. WBC 6.0 Hgb 8.4 PHYSICAL EXAM: VITAL SIGNS: Reviewed. GENERAL: Well-developed in no acute distress. HEENT: No sclera icterus. Extraocular movements grossly intact. Moist buccal mucosa. Head is atraumatic, normocephalic. ABDOMEN: Soft. Nondistended. Nontender. NEUROLOGIC: Alert and oriented. Cranial nerves II through XII grossly intact. ASSESSMENT: 1. Acute on chronic hypoxic respiratory failure status post tracheostomy placement 2. Severe protein calorie nutrition status post PEG tube placement 3. Covid 19 pneumonia PLAN: -Continue supportive care -Continue ICU management -Continue PEG tube feedings Physician Offset Label Rewinder note has been reviewed by physician. Signing provider agrees with the documented findings, assessment, and plan of care. Objective - Vital Signs Vital signs: Vital Signs Temp 98.1 F 11/16/20 04:00 Pulse 75 11/16/20 07:00 Resp 34 H 11/16/20 07:00 BP 98/50 11/16/20 07:00 Pulse Ox 93 L 11/16/20 07:00 Intake & Output 11/15/20 11/16/20 11/16/20 18:59 06:59 18:59 Intake Total 921.000 641 153 Output Total 600 525 125 Balance 321.000 116 28 Weight 84.5 kg Intake: IV 299 453 69 .9 NS pressure bag 39 33 9 0.9NS 260 220 60 Cefepime 2 gm In Sodium 200 Chloride 0.9% 100 ml @ 25 mls/hr IVPB Q12HR [facility] Rx #:[id number] Intake, IV Titration 100.000 50 Amount propofoL 500 mg In Empty 100.000 50 Bag 1 bag @ Titrate IV . Q0M [facility] Rx#:[id number] Tube Feeding 432 108 54 Other 90 30 30 Output: Urine 600 525 125 Other: Voiding Method Indwelling Catheter Indwelling Catheter Indwelling Catheter ABP, PAP, CO, CI - Last Documented Arterial Blood Pressure 79/65 - Labs CBC & Chem 7: 11/16/20 02:59 11/16/20 02:59 Labs: Abnormal Lab Results - Last 24 Hours (Table) 11/15/20 11/15/20 11/16/20 Range/Units 11:35 20:03 02:59 RBC 2.86 L (3.80-5.40) m/uL Hgb 8.4 L (11.4-16.0) gm/dL Hct 25.6 L (34.0-46.0) % RDW 15.7 H (11.5-15.5) % Lymphocytes # 0.8 L (1.0-4.8) k/uL ABG pO2 (83-108) mmHg ABG HCO3 (21-25) mmol/L ABG Total CO2 (19-24) mmol/L Chloride (98-107) mmol/L BUN (7-17) mg/dL Glucose (74-99) mg/dL POC Glucose (mg/dL) 104 H 128 H (75-99) mg/dL Calcium (8.4-10.2) mg/dL AST (14-36) U/L ALT (4-34) U/L Total Protein (6.3-8.2) g/dL Albumin (3.5-5.0) g/dL 11/16/20 11/16/20 11/16/20 Range/Units 02:59 05:15 07:21 RBC (3.80-5.40) m/uL Hgb (11.4-16.0) gm/dL Hct (34.0-46.0) % RDW (11.5-15.5) % Lymphocytes # (1.0-4.8) k/uL ABG pO2 74 L (83-108) mmHg ABG HCO3 30 H (21-25) mmol/L ABG Total CO2 31 H (19-24) mmol/L Chloride 108 H (98-107) mmol/L BUN 25 H (7-17) mg/dL Glucose 102 H (74-99) mg/dL POC Glucose (mg/dL) 118 H (75-99) mg/dL Calcium 8.3 L (8.4-10.2) mg/dL AST 57 H (14-36) U/L ALT 63 H (4-34) U/L Total Protein 5.1 L (6.3-8.2) g/dL Albumin 2.6 L (3.5-5.0) g/dL Microbiology - Last 24 Hours (Table) 11/13/20 12:25 Gram Stain - Final Sputum Sputum Culture - Final Aspergillus fumigatus
[2020-11-16 11:27] LABS: Glucose,Whole Blood 137 mg/dL (75-99)
--- NOTE | 2020-11-16 16:57 | P.PN ---
Progress Note - Text Progress Note Date: 11/16/20 Chief Complaint: Short of breath History of presenting complaint: This is a 60-year-old patient who follows with Yajaira Barber. Chronic stable medical conditions include diabetes, fibromyalgia, GERD, hypertension, hyperlipidemia, osteoarthritis, obstructive sleep apnea. She is on 3 L of nasal cannula home. Night has been getting it more often lately. Diabetic peripheral neuropathy, obstructive sleep apnea does not use CPAP, chronic kidney disease, arthritis in multiple joints, bipolar schizoaffective disorder. Patient presents of 1 week of increasing shortness of breath. Cough. Slight phlegm. Has had fever for 2 days. Decrease appetite some headaches no loss of taste or smell. No diarrhea. Body aches all over. Patient tested for COVID 19 in the ER. Still somewhat tired rundown. Admitted with bilateral COVID 19 pneumonia, acute hypoxic respiratory failure, acute COPD exacerbation. Patient was started on dexamethasone, Lovenox, Remdesivir, vitamin C vitamin D and zinc. Pulmonary was consulted. Patient has been requiring BiPAP. On October 28 because of increasing oxygen requirement patient is moved to the ICU. Patient was started on IV cefepime and vancomycin. Given convalescent plasma on October 30. PICC line placed-started on TPN and lipids. intubated November 06. November 13-PEG tube and tracheostomy tube done Today-ICU: [place] ventilator: FiO2 50 and a PEEP of 14. IV drips include propofol. Eyes open. Telemetry-sinus tachycardia Review of systems: Patient intubated Active Medications Acetaminophen (Acetaminophen Tab 325 Mg Tab) 650 mg PO Q6HR PRN PRN Reason: Fever and/ or Pain Last Admin: 11/05/20 00:06 Dose: 650 mg Documented by: Albuterol Sulfate (Albuterol Hfa Inhaler) 4 puff INHALATION Q4H [facility] Last Admin: 11/16/20 16:04 Dose: 4 puff Documented by: Aripiprazole (Aripiprazole 10 Mg Tab) 10 mg PO HS [facility] Last Admin: 11/15/20 21:06 Dose: 10 mg Documented by: Aripiprazole (Aripiprazole 20 Mg Tab) 20 mg PO DAILY [facility] Last Admin: 11/16/20 08:04 Dose: 20 mg Documented by: Artificial Tears (Artificial Tears-Hypromellose Drops 15 Ml Btl) 1 drops BOTH EYES QID PRN PRN Reason: Dry Eye(s) Last Admin: 10/29/20 18:47 Dose: 1 drops Documented by: Ascorbic Acid (Ascorbic Acid 500 Mg Tab) 500 mg PO DAILY [facility] Last Admin: 11/16/20 08:03 Dose: 500 mg Documented by: Atorvastatin Calcium (Atorvastatin 20 Mg Tab) 20 mg PO DAILY [facility] Last Admin: 11/16/20 08:03 Dose: 20 mg Documented by: Chlorhexidine Gluconate (Chlorhexidine Gluconate 15 Ml Cup) 15 ml MUCOUS MEM BID [facility] Last Admin: 11/16/20 08:02 Dose: 15 ml Documented by: Cholecalciferol (Cholecalciferol 25 Mcg (1000 Iu) Tablet) 100 mcg PO DAILY [facility] Last Admin: 11/16/20 08:02 Dose: 100 mcg Documented by: Clonazepam (Clonazepam 0.5 Mg Tab) 0.5 mg PO HS [facility] Last Admin: 11/15/20 21:04 Dose: 0.5 mg Documented by: Dexamethasone Sodium Phosphate (Dexamethasone Sod Phosphate 10 Mg/Ml 1 Ml Vial) 6 mg IV DAILY [facility] Last Admin: 11/16/20 08:02 Dose: 6 mg Documented by: Enoxaparin Sodium (Enoxaparin 40 Mg/0.4 Ml Syringe) 40 mg SQ DAILY [facility] Last Admin: 11/16/20 08:15 Dose: 40 mg Documented by: Cefepime HCl 2 gm/ Sodium (Chloride) 100 mls @ 25 mls/hr IVPB Q12HR [facility] Last Admin: 11/16/20 08:02 Dose: 25 mls/hr Documented by: Propofol 500 mg/ IV Solution 50 mls @ 0 mls/hr IV .Q0M [facility]; Protocol Last Admin: 11/16/20 05:21 Dose: 20 mcg/kg/min, 10.14 mls/hr Documented by: Insulin Aspart (Insulin Aspart (Novolog) 100 Unit/Ml Vial) 0 unit SQ Q4H [facility]; Protocol Last Admin: 11/16/20 14:40 Dose: Not Given Documented by: Insulin Detemir (Insulin Detemir (Levemir) 100 Unit/Ml Syr) 36 unit SQ [facility] Last Admin: 11/15/20 21:05 Dose: 36 unit Documented by: Lamotrigine (Lamotrigine 100 Mg Tab) 150 mg PO BID [facility] Last Admin: 11/16/20 08:03 Dose: 150 mg Documented by: Lidocaine (Lidocaine 5% Patch) 1 patch TOPICAL DAILY [facility] Last Admin: 11/16/20 08:03 Dose: 1 patch Documented by: Losartan Potassium (Losartan 50 Mg Tab) 50 mg PO DAILY [facility] Last Admin: 11/16/20 08:10 Dose: Not Given Documented by: Meclizine HCl (Meclizine 25 Mg Tab) 25 mg PO Q8H PRN PRN Reason: Nausea And Vomiting Miscellaneous Information (Magnesium Replacement Protocol 1 Each Misc) 1 each MISCELLANE DAILY PRN; Protocol PRN Reason: Per Protocol Miscellaneous Information (Potassium Replacement Protocol 1 Each Misc) 1 each MISCELLANE DAILY PRN; Protocol PRN Reason: Per Protocol Morphine Sulfate (Morphine Sulfate 2 Mg/Ml Syringe) 2 mg IVP Q4H PRN PRN Reason: Pain/Discomfort Last Admin: 11/16/20 08:27 Dose: 2 mg Documented by: Oxcarbazepine (Oxcarbazepine 150 Mg Tab) 150 mg PO BID [facility] Last Admin: 11/16/20 08:03 Dose: 150 mg Documented by: Pantoprazole Sodium (Pantoprazole 40 Mg/10 Ml Vial) 40 mg IVP DAILY [facility] Last Admin: 11/16/20 08:02 Dose: 40 mg Documented by: Pregabalin (Pregabalin 100 Mg Cap) 100 mg PO BID [facility] Last Admin: 11/16/20 08:03 Dose: 100 mg Documented by: Sumatriptan Succinate (Sumatriptan Succinate 50 Mg Tab) 100 mg PO BID PRN PRN Reason: Migraine Headache Topiramate (Topiramate 25 Mg Tab) 50 mg PO BID [facility] Last Admin: 11/16/20 08:04 Dose: 50 mg Documented by: Zinc Sulfate (Zinc Sulfate 220 Mg Cap) 220 mg PO DAILY [facility] Last Admin: 11/16/20 08:03 Dose: 220 mg Documented by: Past medical history to include: COPD, diabetes, fibromyalgia, GERD, hyperlipidemia, hypertension, obstructive sleep apnea does not use CPAP, home oxygen 3 L normal. Night, diabetic peripheral neuropathy, chronic kidney disease, bipolar depression, schizoaffective disorder. Social history: Lives with her daughter. Disabled. Home oxygen. Smoked from 9065 through 2009. In the past used several street drugs but not so since 1989. Physical examination: VITAL SIGNS: 99, 84, 30, 104/48, 94% on the ventilator GENERAL: Laying in bed, tracheostomy, awake NEUROLOGICAL: Following commands, eyes open Physical exam as per pulmonary and nursing INVESTIGATIONS, reviewed in the clinical context: November 16: White count 6 and troponin 8.4 potassium 3.5 creatinine 0.7 pro- calcitonin 0.16 November 15: White count 17 hemoglobin 8.6 platelets 199 potassium 3.6 creatinine 0.75. Chest q-wev-edlkdhkov infiltrates November 14: WBC 9 hemoglobin 9.5 platelets 237 ABG-pCO2 52, pO2 was 63. Potassium 3.9 creatinine 0.69 November 13: WBC 9.4 hemoglobin 9.8 platelets 227 creatinine 0.65 potassium 3.7 November 08: WBC 40.4 hemoglobin 11.4 d-dimer 1.9 potassium 4.6 creatinine 0.71 CRP 83 November 07: WBC 13.9 hemoglobin 11.7 platelets 270 ABG-pH 7.3 pCO2 64 pO2 131 MRSA nasal screen-negative. November 04: D-dimer 4.4 CRP 40.1 pro-calcitonin 0.11 October 28: D-dimer 0.78 CRP 169 pro-calcitonin 0.38 Chest x-ray from yesterday-scattered infiltrates Admission labs: White count 7.2 hemoglobin 15.1 decreased lymphocytes d-dimer 0.85 potassium 3.3 creatinine 0.90 glucose 205 EST 106 ALT 103 CRP 37.2 procalcitonin 0.27 Influenza type A, type B both not detected. RSV P/Cr-not detected. Coronavirus [PCR]-detected EKG tracing personally reviewed by me-normal sinus rhythm some slight ST segment changes Chest x-ray film personally reviewed by me-bilateral basilar infiltrates Assessment and plan: -Bilateral COVID 19 pneumonia causing sepsis. received Remdesivir. Convalescent plasma. colchicine. Received dexamethasone - Solu-Medrol currently Decadron, and Lovenox -secondary bacterial pneumonia infection with IV cefepime-discontinued on , [ IV vancomycin.. MRSA nasal screen negative. vancomycin discontinued] -Acute COPD exacerbation in an [id number] to respond -acute hypoxic respiratory failure, requiring BiPAP-; intubated November 06. Slow to respond on the ventilator, - tracheostomy -Diabetes mellitus 2, uncontrolled with hyperglycemia from steroids. Levemir dose being adjusted -Chronic fibromyalgia -GERD -Essential hypertension, on Cozaar -Hyperlipidemia, on Lipitor -Obstructive sleep apnea does not use CPAP -Diabetic peripheral neuropathy -Primary osteoarthritis of multiple joint -TPN and lipids Continue bronchodilators, cefepime to discontinue after today. Sputum is also now growing Aspergillus fumigatus.-Follow with ID
[2020-11-16 17:01] LABS: Glucose,Whole Blood 150 mg/dL (75-99)
[2020-11-16] MEDS ORDERED: RX INFO: IV CONTRAST WAS GIVEN 1 EACH MISC MISCELLANE PRN (17:11)
--- NOTE | 2020-11-16 18:07 | PN ---
PROGRESS NOTE DATE OF SERVICE: 11/16/2020 REASON FOR FOLLOWUP: Pneumonia. INTERVAL HISTORY: The patient has been running a low-grade fever with temperature of 99.2 to 99.7. The patient is hemodynamically stable. FiO2 is currently stable at 50%. No significant purulent secretions through the ET or any diarrhea reported by the nursing staff. PHYSICAL EXAMINATION: Blood pressure 109/56 with a pulse of 85, temperature 99.7. She is 94% on 50% FiO2. General description is a middle-aged female lying in bed in no distress. RESPIRATORY SYSTEM: Unlabored breathing with decreased intensity of breath sounds. No wheeze. HEART: S1, S2. Regular rate and rhythm. ABDOMEN: Soft. No tenderness. LABS: Hemoglobin 8.4, white count 6.0, BUN of 25, creatinine 0.70. Liver enzymes mildly elevated. Sputum now showing Aspergillus fumigatus. Chest x-ray last 2 days ago showed worsening infiltrate with more consolidative process at the right lung base. DIAGNOSTIC IMPRESSION AND PLAN: Patient with a low-grade fever in this patient with COVID likely pneumonia and has been on high-dose steroids for close to a month now and high risk for infection which is aspergillosis. We will check a CT of the chest, check an aspergillus galactomannan and add voriconazole 6 mg/kg two doses followed by 4 mg/kg b.i.d. Will monitor her clinical course closely. Continue supportive care. MMMIHAELAL / BECK: [id number] /
[2020-11-16] MEDS: clonazePAM 0.5 MG TAB PO SCH (20:01)
[2020-11-16] MEDS: ARIPiprazole 10 MG TAB PO SCH (20:02)
[2020-11-16 20:27] LABS: Glucose,Whole Blood 104 mg/dL (75-99)
[2020-11-16] MEDS: INSULIN DETEMIR (LEVEMIR) 100 UNIT/ML SYR SQ SCH (20:36)
[2020-11-16] MEDS: VORICONAZOLE 500 MG in SODIUM CHLORIDE 0.9% 250 ML IVPB SCH (21:07)
[2020-11-16 23:09] LABS: Glucose,Whole Blood 99 mg/dL (75-99)
[2020-11-17] MEDS: INSULIN ASPART (NovoLOG) 100 UNIT/ML VIAL SQ SCH ×7 (00:24→23:22)
[2020-11-17] MEDS: MORPHINE SULFATE 2 MG/ML SYRINGE IVP PRN ×3 (02:45→15:05)
[2020-11-17] MEDS: ALBUTEROL HFA INHALER INHALATION SCH ×6 (03:02→23:05)
[2020-11-17 04:29] LABS: Anisocytosis Slight; Basophils % (A) 0 %; Eosinophils # (A) 0.3 k/uL (0-0.7); Eosinophils % (A) 5 %; HCT 26.4 % (34.0-46.0); HGB 8.3 gm/dL (11.4-16.0); Hypochromasia Slight; Lymphocytes # (A) 1.1 k/uL (1.0-4.8); Lymphocytes % (A) 18 %; MCH 28.7 pg (25.0-35.0); MCHC 31.6 g/dL (31.0-37.0); MCV 90.7 fL (80.0-100.0); Mean Platelet Volume 7.9; Monocytes # (A) 0.3 k/uL (0-1.0); Monocytes % (A) 5 %; Neutrophils # (A) 4.5 k/uL (1.3-7.7); Neutrophils % (A) 72 %; Platelet Count 207 k/uL (150-450); RBC 2.91 m/uL (3.80-5.40); WBC 6.3 k/uL (3.8-10.6)
[2020-11-17 04:58] LABS: African American GFR (CKD) >90 (>60 ml/min/1.73 sqM); Anion Gap 6 mmol/L; Blood Urea Nitrogen 26 mg/dL (7-17); Calcium 8.3 mg/dL (8.4-10.2); Carbon Dioxide 27 mmol/L (22-30); Chloride 108 mmol/L (98-107); Glucose 97 mg/dL (74-99); Non-African American GFR(CKD) >90 (>60 ml/min/1.73 sqM); Potassium 3.6 mmol/L (3.5-5.1); Sodium 141 mmol/L (137-145)
[2020-11-17 05:53] LABS: ABG Base Excess 4.5 mmol/L; ABG HCO3 29 mmol/L (21-25); ABG Oxygen Saturation 97.2 % (94-97); ABG PCO2 42 mmHg (35-45); ABG PH 7.45 (7.35-7.45); ABG PO2 78 mmHg (83-108); ABG TCO2 30 mmol/L (19-24); Allen Test Performed? Yes
[2020-11-17] MEDS ORDERED: POTASSIUM BICARBONATE/CIT AC 20 MEQ TABLET.EFF NG-TUBE SCH (07:00)
[2020-11-17 07:26] LABS: Glucose,Whole Blood 111 mg/dL (75-99)
--- NOTE | 2020-11-17 09:03 | XR ---
EXAMINATION TYPE: XR chest 1V portable DATE OF EXAM: 11/17/2020 CLINICAL HISTORY: Difficulty breathing progress study. Covid pneumonia. TECHNIQUE: Single AP portable upright view of the chest is obtained. COMPARISON: Chest x-ray from 3 days earlier and older studies. CTA chest October 23, 2020 FINDINGS: Tracheostomy tube redemonstrated. Stable left-sided PICC line. Persistent somewhat low lung volumes with elevated left hemidiaphragm and reticulonodular opacities b ilaterally with areas of consolidation in the lower lungs redemonstrated. Cardiac silhouette size mor e prominent on current study. Underlying scoliosis redemonstrated. IMPRESSION: Bilateral multifocal reticulonodular infiltrates with organizing lower lung consolidation s consistent with covid 19 infection progression. No significant change from most recent x-ray.
[2020-11-17] MEDS: LIDOCAINE 5% PATCH TOPICAL SCH (09:40)
[2020-11-17] MEDS: VORICONAZOLE 500 MG in SODIUM CHLORIDE 0.9% 250 ML IVPB SCH (09:40)
[2020-11-17] MEDS: TOPIRAMATE 25 MG TAB PO SCH ×2 (09:41→20:11)
[2020-11-17] MEDS: OXcarbazepine 150 MG TAB PO SCH ×2 (09:41→20:11)
[2020-11-17] MEDS: ENOXAPARIN 40 MG/0.4 ML SYRINGE SQ SCH (09:42)
[2020-11-17] MEDS: ZINC SULFATE 220 MG CAP PO SCH (09:45)
[2020-11-17] MEDS: CHOLECALCIFEROL 25 MCG (1000 IU) TABLET PO SCH (09:46)
[2020-11-17] MEDS: lamoTRIgine 100 MG TAB PO SCH ×2 (09:46→20:10)
[2020-11-17] MEDS: predniSONE 10 MG TAB PO SCH (09:47)
[2020-11-17] MEDS: LOSARTAN 50 MG TAB PO SCH (09:47)
[2020-11-17] MEDS: PANTOPRAZOLE 40 MG/10 ML VIAL IVP SCH (09:47)
[2020-11-17] MEDS: PREGABALIN 100 MG CAP PO SCH ×2 (09:47→20:10)
[2020-11-17] MEDS: ASCORBIC ACID 500 MG TAB PO SCH (09:47)
[2020-11-17] MEDS: ATORVASTATIN 20 MG TAB PO SCH (09:47)
[2020-11-17] MEDS: CHLORHEXIDINE GLUCONATE 15 ML CUP MUCOUS MEM SCH ×2 (09:49→20:10)
--- NOTE | 2020-11-17 11:06 | P.PN ---
Subjective Progress Note Date: 11/17/20 Principal diagnosis: Shortness of breath. On 10/22/2020 patient seen in follow-up, she is awake and alert, she remains on 6 L of oxygen her pulse ox is 90-93%, she is breathing comfortably, although still having fever spikes, with a T-max of 101.8F this morning, today's day 2 o f Remdesivir, we added colchicine, she is on oral Decadron 6 mg daily, she is on prophylactic dose of Lovenox, in addition to vitamins. Today's labs have been reviewed, showing d-dimer of 0.85, CRP is down to 4.6, associated LDH value from today, her pro-calcitonin level was 0.27, her influenza and RSV screen were negative. On 10/23/2020 patient seen in follow-up on medical floor, she is awake and alert, oriented 3, she is wheezy, has a congested cough, she is currently on 2 L of oxygen her pulse ox is between 87-93%, she still having some low-grade fevers, today's chest x-ray showing patchy perihilar and basilar infiltrates without significant change. Patient remains on Remdesivir, today is day 3 of treatment, in addition to Decadron, prophylactic doses of Lovenox in her d-dimer remains low at 0.62, in addition to vitamins and colchicine. Her inflammatory markers are coming down, her procalcitonin level was not elevated to 0.27 On 10/26/2019 patient seen in follow-up on medical floor, she is currently on high flow oxygen per year flow at 50 L and FiO2 of 82%, and her pulse ox is 91%, she states his breathing comfortably, overall her breathing is better, she is feeling better, she's had that no fever or chills, hemodynamically stable, no chest discomfort. 0.9 normal saline is infusing at 20 ML per hour, chest x-ray today showed coarse perihilar and basilar infiltrates unchanged from prior study. She finished her Remdesivir treatment yesterday, she remains on bronchodilators, she remains on dexamethasone 6 mg daily, subcu Lovenox 40 mg twice daily, oral Pepcid, vitamin C D and zinc. Today's labs have been reviewed, CBC is within normal limits, d-dimer 0.49, renal profile is unremarkable, CO2 was mildly elevated at 32, the rest of electrolytes were within normal limits, LDH is 346, and CRP is 2.3. No Altered mentation, patient is tolerating oral diet, no nausea vomiting no abdominal pain On 10/27/2020 patient seen in follow-up on medical floor. Patient remains on high flow oxygen per Airvo with 50 L and FiO2 of 82%, and her pulse ox has been 87-89%, patient feels more dyspneic on today's exam, she did have a fever spike earlier today in the morning however it is not recorded. She is coughing, however her cough is dry, nonproductive. No chest pain. Today's chest x-ray shows patchy perihilar basilar infiltrates noted to be slightly improved. Tory ent remains on empiric antibiotics in the form of Rocephin, she is on 6 mg oral dose of Decadron on a daily basis, she is on Lovenox 40 mg twice a day, patient to vitamin C D and zinc. Her last d-dimer yesterday was 0.49, today's labs have been reviewed. Pro-calcitonin is 0.22 on today's labs, inflammatory markers are improving. Progress note dated 10/28/2020. 60-year-old female with a history of severe hypoxemic respiratory failure, secondary to COVID 19 pneumonia. Today, the patient was on AIRVO at 60 L/m, and 90% FiO2, as well as a partial rebreather mask. Her saturations were only in the mid to high 80s and for that reason, the patient was transferred to the intensive care unit for further monitoring and treatment. The patient really has not shown much improvement over the last couple of days. Her chest x-ray actually looked a bit worse to us, but we did give her some Lasix just in case some of what we were seeing related to fluid overload. White count was 5.72, hemoglobin 12.9, hematocrit 39.8, and platelet count 224,000. Sodium was 134, potassium 4, chloride 94, CO2 31, anion gap 9, BUN 15, and creatinine 0.8. Vital signs showed a blood pressure of 87/45, heart rate 79, respiratory rate 24, and a normal temperature. Medications were reviewed and were appropriate. Progress note dated 10/30/2020 60-year-old female with a history of severe hypoxemic respiratory failure. The patient has a history of COVID 19 pneumonia. Currently, the patient is on BiPAP with an IPAP of 12 and EPAP of 6, and 100%. Yesterday, the nurse had a conversation with the patient and before the end that shift, the patient had decided to be a DO NOT RESUSCITATE. Sometime after that, the patient changed her mind. In addition to BiPAP, the patient is on saline at 10 mL an hour. The patient was admitted on 10/21/2020. We did have a long discussion again today about CODE STATUS. The patient did agree to go on life support if necessary. She stated though that if it appeared that she was not going to improve, that she would want to come off of life support and be made comfortable. The patient would not agree to tracheostomy or PEG tube placement. She has not eaten anyt warner she's been on the BiPAP 17/04. Today, we'll place a PICC line, and start her on total parenteral nutrition. Today's temperature is 97.9, heart rate 95, respiratory rate 17, blood pressure 108/59, and saturations between 85-90%. White count is 5.7, hemoglobin 13.4, hematocrit 40.3, and platelet count 268,000. D-dimer is 0.92. Sodium 134, potassium 3.8, chloride 96, CO2 30, anion gap 8, BUN 24, and creatinine 0.8. LDH is 905, C-reactive protein is 202. Chest x-ray stable to minimally improved. Progress note dated 10/31/2020. 60-year-old female, with a history of severe hypoxemic respiratory failure, secondary to COVID 19 pneumonia. The patient remains about the same. The patient is currently on BiPAP, with an IPAP of 12 pending EPAP 6. The patient's FiO2 is set at 100%. She's getting saline at 20 mL an hour and TPN at 30 mL/h with a goal of 60. She has a PICC line in place. The patient did receive, convalescent plasma yesterday. We have talked to her numerous times about CODE STATUS. The patient is currently a full code and would agree to at least short- term intubation and mechanical ventilation. She would not agree to tracheostomy or PEG tube placement. Currently, her white count is 7.5, hemoglobin 13.5, hematocrit 40.5, platelet count 283,000. The patient's d-dimer is 1.03. Sodium 134, potassium 3.8, chlorides 99, CO2 27, anion gap 8, BUN 23, and creatinine 0.67. Chest x-ray is stable to slightly improved. Progress note dated 11/01/2020. 60-year-old female, with a history of severe hypoxemic respiratory failure, secondary to COVID 19 pneumonia. The patient remains in the intensive care unit. She is in room 251. She is on BiPAP with settings of IPAP 12 and EPAP 6, and 100%. She's getting TPN at 60 mL and saline at KVO. The patient's x-ray continues to show bilateral diffuse patchy infiltrates. Today's sodium is 136, potassium 4.1, chloride 101, CO2 30, anion gap 5, BUN 23, and creatinine 0.65. LDH is 8 O2. C-reactive protein is 33.4. Chest x-ray shows bilateral patchy infiltrates, which are unchanged. The patient remains on appropriate medications. On 2020 patient seen in follow-up in the intensive care unit, she is cu rrently on VC plus mode of ventilation with a rate of 34, target volume of 400, FiO2 of 50% and PEEP of 14, inspiratory time is 0.9. This morning blood gases revealed a pO2 of 74, pCO2 42, and pH 7.45. She is currently lightly sedated on Diprivan at 20 mics per kilo per minute, 0.9 normal saline is at 20 ML per hour, patient is receiving tube feedings, she is on vital high protein at 27 with a g oal of 27 and standard water flushes. Patient is status post tracheostomy and PEG tube placement on 11/13/[address] Tidwell, she is in sinus mechanism, she has not required any vasopressors. Her last chest x-ray was done on the showing coarse infiltrates throughout both lungs with more consolidative processes at the right lung base, improving basilar aeration was noted. This morning's labs have been reviewed, white blood cell count of 6.0, hemoglobin is 8.4, sodium is 141, potassium 3.5, chloride was 108, CO2 is 29, BUN is 25, creatinine 0.7. AST was 57, ALT was 63, alkaline phosphatase was 79. Cultures have been reviewed, bloody urine have been negative, latest sputum culture from 11/13/2020 revealed Aspergillus fumigatus. ID service is following, patient is currently on cefepime. Patient remains on 6 mg of dexamethasone IV daily, she is on prophylactic dose of Lovenox 40 mg daily. Patient has been producing 30- 50 ML of urine on the regular basis. Patient does follow commands and moves all 4 extremities. No new chest x-ray today, patient was rechecked for COVID 19 on 11/11/2020 and was found to be positive Progress note dated 11/17/2020. 60-year-old female seen today in the intensive care unit. The patient has been in the hospital for 27 days. She was initially admitted with COVID 19 pneumonia and acute and severe hypoxemic respiratory failure. She has a history of hypertension, type 2 diabetes, hyperlipidemia, COPD, fibromyalgia, sleep apnea syndrome, and chronic hypoxemic respiratory failure. For many days, the patient was not intubated. Finally, the patient did get intubated, and ended up with a tracheostomy and feeding tube. Yesterday, the patient was thinking about comfort measures but apparently she has changed her mind and would like to continue to try to get better. The goal will be to try to get her to a long- term acute care facility. She currently remains on the ventilator, on the pressure regulated volume control modality also known as VC plus. Her respiratory rate is 34, her targeted tidal volume 400, her inspiratory time is 0.9 seconds, her FiO2 is 50%, and her PEEP is 14. Arterial blood gases show a PaO2 of 78, PaCO2 of 42, and a pH is 7.45. Currently, she is on saline at KVO, propofol at 15 mcg/kg/m, and vital high protein at 43, with a goal of 43 mL an hour. The patient's Decadron will be discontinued in favor of prednisone. She's been on steroids for a number of weeks. We will eventually wean the pr ednisone completely off. Her chest x-ray continues to show diffuse bilateral infiltrates. Objective - Vital Signs Vital signs: Vital Signs Temp 99.5 F 11/17/20 08:00 Pulse 76 11/17/20 10:00 Resp 16 11/17/20 10:00 BP 100/50 11/17/20 10:00 Pulse Ox 95 11/17/20 10:00 Intake & Output 11/16/20 11/17/20 11/17/20 18:59 06:59 18:59 Intake Total 798 889 252 Output Total 480 625 130 Balance 318 264 122 Weight 84.5 kg Intake: IV 267 240 80 .9 NS pressure bag 27 0.9NS 240 240 80 Intake, IV Titration 50 Amount propofoL 500 mg In Empty 50 Bag 1 bag @ Titrate IV . Q0M [facility] Rx#:[id number] Tube Feeding 391 559 172 Other 90 90 Output: Urine 480 625 130 Other: Voiding Method Indwelling Catheter Indwelling Catheter Indwelling Catheter ABP, PAP, CO, CI - Last Documented Arterial Blood Pressure 79/65 - Exam Currently ventilated, awake, with a midline tracheostomy tube. HEENT examination is grossly unremarkable. Mucous membranes are moist. Neck supple. Full range of motion. No adenopathy thyromegaly or neck vein distention. Midline tracheostomy tube noted. Cardiovascular examination reveals regular rhythm rate. S1-S2 normal. No S3 or S4. No discernible murmur noted. Heart sounds are distant and heart rate is 76 bpm. Lungs reveal coarse bilateral rhonchi, and a few crackles. Breath sounds equal bilaterally but diminished throughout. No wheezes. . Abdomen soft bowel sounds are heard. No masses or tenderness. A PEG tube is noted. Extremities are intact. No cyanosis clubbing or edema. Skin is without rash or lesion. Neurologic examination is brief but nonfocal. - Labs CBC & Chem 7: 11/17/20 03:24 11/17/20 03:24 Labs: Abnormal Lab Results - Last 24 Hours (Table) 11/16/20 11/16/20 11/16/20 Range/Units 02:59 11:25 16:59 RBC (3.80-5.40) m/uL Hgb (11.4-16.0) gm/dL Hct (34.0-46.0) % RDW (11.5-15.5) % ABG pO2 (83-108) mmHg ABG HCO3 (21-25) mmol/L ABG Total CO2 (19-24) mmol/L ABG O2 Saturation (94-97) % Chloride (98-107) mmol/L BUN (7-17) mg/dL POC Glucose (mg/dL) 137 H 150 H (75-99) mg/dL Calcium (8.4-10.2) mg/dL Procalcitonin 0.16 H (0.02-0.09) ng/mL 11/16/20 11/17/20 11/17/20 Range/Units 20:23 03:24 03:24 RBC 2.91 L (3.80-5.40) m/uL Hgb 8.3 L (11.4-16.0) gm/dL Hct 26.4 L (34.0-46.0) % RDW 16.0 H (11.5-15.5) % ABG pO2 (83-108) mmHg ABG HCO3 (21-25) mmol/L ABG Total CO2 (19-24) mmol/L ABG O2 Saturation (94-97) % Chloride 108 H (98-107) mmol/L BUN 26 H (7-17) mg/dL POC Glucose (mg/dL) 104 H (75-99) mg/dL Calcium 8.3 L (8.4-10.2) mg/dL Procalcitonin (0.02-0.09) ng/mL 11/17/20 11/17/20 Range/Units 04:47 07:24 RBC (3.80-5.40) m/uL Hgb (11.4-16.0) gm/dL Hct (34.0-46.0) % RDW (11.5-15.5) % ABG pO2 78 L (83-108) mmHg ABG HCO3 29 H (21-25) mmol/L ABG Total CO2 30 H (19-24) mmol/L ABG O2 Saturation 97.2 H (94-97) % Chloride (98-107) mmol/L BUN (7-17) mg/dL POC Glucose (mg/dL) 111 H (75-99) mg/dL Calcium (8.4-10.2) mg/dL Procalcitonin (0.02-0.09) ng/mL Microbiology - Last 24 Hours (Table) 11/13/20 12:25 Gram Stain - Final Sputum Sputum Culture - Final Aspergillus fumigatus Assessment and Plan Assessment: Acute on chronic hypoxemic respiratory failure, secondary to acute COVID 19 pneumonitis/pneumonia, status post remdesivir. Status post intubation and mechanical ventilation, and subsequent tracheostomy and PEG tube placement (11/13/2020), for failure to wean from mechanical ventilation. History of COPD. Elevated liver enzymes, secondary to rhinovirus infection. Type 2 diabetes mellitus. History of obstructive sleep apnea syndrome. Hyperlipidemia. History of degenerative joint disease. History of bipolar disorder. Suspected critical illness polyneuropathy. Upper GI bleed, resolved. Plan: Plan dated 11/17/2020. The patient remains on mechanical ventilator, on the VC plus mode, also known as pressure regulated volume control. Today's arterial blood gases are stable. She remains on propofol at 15 mcg/kg/m. She getting nourishment vital high protein at 43 mL an hour, which is goal, and today, we DC'd her Decadron in fav or of prednisone, 10 mg a day. Apparently the patient has changed her mind and now once continue to try to get better, and eventually be transferred to her long-term acute care. We will have to get her off the propofol for that. In addition, we'll have to get her PEEP levels down to about 8 cm of water before they will take her. Her medications are reviewed. Sodium 141, potassium 3.6, chlorides 108, CO2 27, anion gap 6, BUN 26, and creatinine 0.64. In addition, white count 6.3, hemoglobin 8.3, hematocrit 26.4, and platelet count 207,000. Overall prognosis remains guarded. We will continue to see this patient on a daily basis and make recommendations were appropriate. Her medications have been reviewed. Unnecessary medications have been discontinued. Time with Patient: Greater than 30
[2020-11-17 12:23] LABS: Glucose,Whole Blood 134 mg/dL (75-99)
--- NOTE | 2020-11-17 13:53 | P.PN ---
Subjective Progress Note Date: 11/17/20 CHIEF COMPLAINT: Shortness of breath HISTORY OF PRESENT ILLNESS: Patient seen and examined with Dr. gerardo. Patient remains in the ICU she is currently on mechanical ventilation. She is status post tracheostomy and PEG tube placement on 11/13/[address] Gerardo. Patient is tolerating tube feedings. She is currently at 27 mL per hour for her to feedings. She is afebrile. WBC 6.3 Hgb 8.3 PHYSICAL EXAM: VITAL SIGNS: Reviewed. GENERAL: Well-developed in no acute distress. HEENT: No sclera icterus. Extraocular movements grossly intact. Moist buccal mucosa. Head is atraumatic, normocephalic. ABDOMEN: Soft. Nondistended. Nontender. NEUROLOGIC: Alert and oriented. Cranial nerves II through XII grossly intact. ASSESSMENT: 1. Acute on chronic hypoxic respiratory failure status post tracheostomy placement 2. Severe protein calorie nutrition status post PEG tube placement 3. Covid 19 pneumonia PLAN: -Continue supportive care -Continue ICU management -Continue PEG tube feedings Physician Superintendent Track note has been reviewed by physician. Signing provider agrees with the documented findings, assessment, and plan of care. Objective - Vital Signs Vital signs: Vital Signs Temp 99.4 F 11/17/20 12:00 Pulse 79 11/17/20 12:00 Resp 20 11/17/20 12:00 BP 105/59 11/17/20 12:00 Pulse Ox 95 11/17/20 12:00 Intake & Output 11/16/20 11/17/20 11/17/20 18:59 06:59 18:59 Intake Total 798 889 438 Output Total 480 625 230 Balance 318 264 208 Weight 84.5 kg Intake: IV 267 240 120 .9 NS pressure bag 27 0.9NS 240 240 120 Intake, IV Titration 50 Amount propofoL 500 mg In Empty 50 Bag 1 bag @ Titrate IV . Q[facility]M [facility] Rx#:[id number] Tube Feeding 391 559 258 Other 90 90 60 Output: Urine 480 625 230 Other: Voiding Method Indwelling Catheter Indwelling Catheter Indwelling Catheter ABP, PAP, CO, CI - Last Documented Arterial Blood Pressure 79/65 - Labs CBC & Chem 7: 11/17/20 03:24 11/17/20 03:24 Labs: Abnormal Lab Results - Last 24 Hours (Table) 0211/16/20 11/17/20 Range/Units 16:59 20:23 03:24 RBC 2.91 L (3.80-5.40) m/uL Hgb 8.3 L (11.4-16.0) gm/dL Hct 26.4 L (34.0-46.0) % RDW 16.0 H (11.5-15.5) % ABG pO2 (83-108) mmHg ABG HCO3 (21-25) mmol/L ABG Total CO2 (19-24) mmol/L ABG O2 Saturation (94-97) % Chloride (98-107) mmol/L BUN (7-17) mg/dL POC Glucose (mg/dL) 150 H 104 H (75-99) mg/dL Calcium (8.4-10.2) mg/dL 11/17/20 11/17/20 11/17/20 Range/Units 03:24 04:47 07:24 RBC (3.80-5.40) m/uL Hgb (11.4-16.0) gm/dL Hct (34.0-46.0) % RDW (11.5-15.5) % ABG pO2 78 L (83-108) mmHg ABG HCO3 29 H (21-25) mmol/L ABG Total CO2 30 H (19-24) mmol/L ABG O2 Saturation 97.2 H (94-97) % Chloride 108 H (98-107) mmol/L BUN 26 H (7-17) mg/dL POC Glucose (mg/dL) 111 H (75-99) mg/dL Calcium 8.3 L (8.4-10.2) mg/dL 11/17/20 Range/Units 12:22 RBC (3.80-5.40) m/uL Hgb (11.4-16.0) gm/dL Hct (34.0-46.0) % RDW (11.5-15.5) % ABG pO2 (83-108) mmHg ABG HCO3 (21-25) mmol/L ABG Total CO2 (19-24) mmol/L ABG O2 Saturation (94-97) % Chloride (98-107) mmol/L BUN (7-17) mg/dL POC Glucose (mg/dL) 134 H (75-99) mg/dL Calcium (8.4-10.2) mg/dL Microbiology - Last 24 Hours (Table) 11/13/20 12:25 Gram Stain - Final Sputum Sputum Culture - Final Aspergillus fumigatus
--- NOTE | 2020-11-17 15:20 | PN ---
PROGRESS NOTE DATE OF SERVICE: 11/17/2020 REASON FOR FOLLOWUP: Pneumonia, question of aspergillosis. INTERVAL HISTORY: The patient overall fever pattern improved. He did have a low-grade fever of 100.2 last night, 99.4 today. The patient is currently on trach collar. She is awake and alert. Did answer some simple questions. No chest pain. No abdominal pain and no diarrhea has been reported. PHYSICAL EXAMINATION: Blood pressure is 105/59 with pulse of 79, temperature 99.4. She is 95% on 50% FiO2. General description is a middle-aged female lying in bed in no distress. RESPIRATORY SYSTEM: Unlabored breathing, coarse breath sounds bilaterally. HEART: S1, S2. Regular rate and rhythm. ABDOMEN: Soft, no tenderness. EXTREMITIES: No edema of feet. LABS: Hemoglobin 8.1, white count 6.3, BUN of 26, creatinine 0.64. DIAGNOSTIC IMPRESSION AND PLAN: Patient with acute respiratory failure, multifactorial with initial diagnosis of COVID- 19 infection treated, respiratory failure and has been on a prolonged course of steroids, . CT was requested yesterday, which has been canceled. Voriconazole has been added, will be continued and we will monitor clinical course closely. MMODL / IJN: [id number] /
[2020-11-17 18:09] LABS: Glucose,Whole Blood 129 mg/dL (75-99)
[2020-11-17 19:51] LABS: Glucose,Whole Blood 114 mg/dL (75-99)
[2020-11-17] MEDS: clonazePAM 0.5 MG TAB PO SCH (20:10)
[2020-11-17] MEDS: INSULIN DETEMIR (LEVEMIR) 100 UNIT/ML SYR SQ SCH (20:11)
[2020-11-17] MEDS: ARIPiprazole 10 MG TAB PO SCH (20:11)
[2020-11-17] MEDS: SODIUM CHLORIDE 0.9% IVPB SCH (21:30)
[2020-11-17] MEDS: VORICONAZOLE IVPB SCH (21:30)
--- NOTE | 2020-11-17 21:44 | P.PN ---
Progress Note - Text Progress Note Date: 11/17/20 Chief Complaint: Short of breath History of presenting complaint: This is a 60-year-old patient who follows with Yajaira Braber. Chronic stable medical conditions include diabetes, fibromyalgia, GERD, hypertension, hyperlipidemia, osteoarthritis, obstructive sleep apnea. She is on 3 L of nasal cannula home. Night has been getting it more often lately. Diabetic peripheral neuropathy, obstructive sleep apnea does not use CPAP, chronic kidney disease, arthritis in multiple joints, bipolar schizoaffective disorder. Patient presents of 1 week of increasing shortness of breath. Cough. Slight phlegm. Has had fever for 2 days. Decrease appetite some headaches no loss of taste or smell. No diarrhea. Body aches all over. Patient tested for COVID 19 in the ER. Still somewhat tired rundown. Admitted with bilateral COVID 19 pneumonia, acute hypoxic respiratory failure, acute COPD exacerbation. Patient was started on dexamethasone, Lovenox, Remdesivir, vitamin C vitamin D and zinc. Pulmonary was consulted. Patient has been requiring BiPAP. On October 28 because of increasing oxygen requirement patient is moved to the ICU. Patient was started on IV cefepime and vancomycin. Given convalescent plasma on October 30. PICC line placed-started on TPN and lipids. intubated November 06. November 13-PEG tube and tracheostomy tube done. Sputum grew Aspergillus fumigatus. Voriconazole was added. Today-ICU:ventilator-50/14. Telemetry-sinus rhythm. 2 feeding at 43 mL an hour. Awake. Decadron discontinued by pulmonary. changed to prednisone. Review of systems: Patient intubated Active Medications Acetaminophen (Acetaminophen Tab 325 Mg Tab) 650 mg PO Q6HR PRN PRN Reason: Fever and/ or Pain Last Admin: 11/05/20 00:06 Dose: 650 mg Documented by: Albuterol Sulfate (Albuterol Hfa Inhaler) 4 puff INHALATION Q4H [facility] Last Admin: 11/17/20 19:05 Dose: 4 puff Documented by: Aripiprazole (Aripiprazole 10 Mg Tab) 10 mg PO HS [facility] Last Admin: 11/17/20 20:11 Dose: 10 mg Documented by: Aripiprazole (Aripiprazole 20 Mg Tab) 20 mg PO DAILY [facility] Last Admin: 11/17/20 09:47 Dose: 20 mg Documented by: Artificial Tears (Artificial Tears-Hypromellose Drops 15 Ml Btl) 1 drops BOTH EYES QID PRN PRN Reason: Dry Eye(s) Last Admin: 10/29/20 18:47 Dose: 1 drops Documented by: Ascorbic Acid (Ascorbic Acid 500 Mg Tab) 500 mg PO DAILY [facility] Last Admin: 11/17/20 09:47 Dose: 500 mg Documented by: Atorvastatin Calcium (Atorvastatin 20 Mg Tab) 20 mg PO DAILY [facility] Last Admin: 11/17/20 09:47 Dose: 20 mg Documented by: Chlorhexidine Gluconate (Chlorhexidine Gluconate 15 Ml Cup) 15 ml MUCOUS MEM BID [facility] Last Admin: 11/17/20 20:10 Dose: 15 ml Documented by: Cholecalciferol (Cholecalciferol 25 Mcg (1000 Iu) Tablet) 100 mcg PO DAILY [facility] Last Admin: 11/17/20 09:46 Dose: 100 mcg Documented by: Clonazepam (Clonazepam 0.5 Mg Tab) 0.5 mg PO HS [facility] Last Admin: 11/17/20 20:10 Dose: 0.5 mg Documented by: Enoxaparin Sodium (Enoxaparin 40 Mg/0.4 Ml Syringe) 40 mg SQ DAILY [facility] Last Admin: 11/17/20 09:42 Dose: 40 mg Documented by: Propofol 500 mg/ IV Solution 50 mls @ 0 mls/hr IV .Q0M [facility]; Protocol Last Admin: 11/17/20 00:23 Dose: 10 mcg/kg/min, 5.07 mls/hr Documented by: Voriconazole 350 mg/ Sodium (Chloride) 250 mls @ 125 mls/hr IVPB Q12HR [facility] Insulin Aspart (Insulin Aspart (Novolog) 100 Unit/Ml Vial) 0 unit SQ Q4H [facility]; Protocol Last Admin: 11/17/20 19:58 Dose: Not Given Documented by: Insulin Detemir (Insulin Detemir (Levemir) 100 Unit/Ml Syr) 36 unit SQ HS [facility] Last Admin: 11/17/20 20:11 Dose: 36 unit Documented by: Lamotrigine (Lamotrigine 100 Mg Tab) 150 mg PO BID [facility] Last Admin: 11/17/20 20:10 Dose: 150 mg Documented by: Lidocaine (Lidocaine 5% Patch) 1 patch TOPICAL DAILY [facility] Last Admin: 11/17/20 09:40 Dose: 1 patch Documented by: Losartan Potassium (Losartan 50 Mg Tab) 50 mg PO DAILY [facility] Last Admin: 11/17/20 09:47 Dose: Not Given Documented by: Meclizine HCl (Meclizine 25 Mg Tab) 25 mg PO Q8H PRN PRN Reason: Nausea And Vomiting Miscellaneous Information (Magnesium Replacement Protocol 1 Each Misc) 1 each MISCELLANE DAILY PRN; Protocol PRN Reason: Per Protocol Miscellaneous Information (Potassium Replacement Protocol 1 Each Misc) 1 each MISCELLANE DAILY PRN; Protocol PRN Reason: Per Protocol Miscellaneous Information (Rx Info: Iv Contrast Was Given 1 Each Misc) 1 each MISCELLANE DAILY PRN PRN Reason: Per Protocol Stop: 11/18/20 17:12 Morphine Sulfate (Morphine Sulfate 2 Mg/Ml Syringe) 2 mg IVP Q4H PRN PRN Reason: Pain/Discomfort Last Admin: 11/17/20 15:05 Dose: 2 mg Documented by: Oxcarbazepine (Oxcarbazepine 150 Mg Tab) 150 mg PO BID [facility] Last Admin: 11/17/20 20:11 Dose: 150 mg Documented by: Pantoprazole Sodium (Pantoprazole 40 Mg/10 Ml Vial) 40 mg IVP DAILY [facility] Last Admin: 11/17/20 09:47 Dose: 40 mg Documented by: Prednisone (Prednisone 10 Mg Tab) 10 mg PO DAILY [facility] Last Admin: 11/17/20 09:47 Dose: 10 mg Documented by: Pregabalin (Pregabalin 100 Mg Cap) 100 mg PO BID [facility] Last Admin: 11/17/20 20:10 Dose: 100 mg Documented by: Sumatriptan Succinate (Sumatriptan Succinate 50 Mg Tab) 100 mg PO BID PRN PRN Reason: Migraine Headache Topiramate (Topiramate 25 Mg Tab) 50 mg PO BID [facility] Last Admin: 11/17/20 20:11 Dose: 50 mg Documented by: Zinc Sulfate (Zinc Sulfate 220 Mg Cap) 220 mg PO DAILY [facility] Last Admin: 11/17/20 09:45 Dose: 220 mg Documented by: Past medical history to include: COPD, diabetes, fibromyalgia, GERD, hyperlipidemia, hypertension, obstructive sleep apnea does not use CPAP, home oxygen 3 L normal. Night, diabetic peripheral neuropathy, chronic kidney disease, bipolar depression, schizoaffective disorder. Social history: Lives with her daughter. Disabled. Home oxygen. Smoked from 9065 through 2009. In the past used several street drugs but not so since 1989. Physical examination: VITAL SIGNS: 99, 83, 32, 111/63, 96% on 50% FiO2 GENERAL: Laying in bed, tracheostomy, awake NEUROLOGICAL: Following commands, eyes open Physical exam as per pulmonary and nursing INVESTIGATIONS, reviewed in the clinical context: Family :WBC 6.3 hemoglobin 8.3 potassium 3.6 creatinine 0.64 November 08: WBC 40.4 hemoglobin 11.4 d-dimer 1.9 potassium 4.6 creatinine 0.71 CRP 83 November 07: WBC 13.9 hemoglobin 11.7 platelets 270 ABG-pH 7.3 pCO2 64 pO2 131 MRSA nasal screen-negative. November 04: D-dimer 4.4 CRP 40.1 pro-calcitonin 0.11 October 28: D-dimer 0.78 CRP 169 pro-calcitonin 0.38 Chest x-ray from yesterday-scattered infiltrates Admission labs: White count 7.2 hemoglobin 15.1 decreased lymphocytes d-dimer 0.85 potassium 3.3 creatinine 0.90 glucose 205 EST 106 ALT 103 CRP 37.2 procalcitonin 0.27 Influenza type A, type B both not detected. RSV P/Cr-not detected. Coronavirus [PCR]-detected EKG tracing personally reviewed by me-normal sinus rhythm some slight ST segment changes Chest x-ray film personally reviewed by me-bilateral basilar infiltrates Assessment and plan: -Bilateral COVID 19 pneumonia causing sepsis. received Remdesivir. Convalescent plasma. colchicine. Received dexamethasone - Solu-Medrol currently Decadron, and Lovenox -secondary bacterial pneumonia infection with IV cefepime-discontinued on November 16, [ IV vancomycin.. MRSA nasal screen negative. vancomycin discontinued]. Sputum also positive for Aspergillus fumigatus. Warty, so D -Acute COPD exacerbation in an [id number] to respond -acute hypoxic respiratory failure, requiring BiPAP-; intubated November 06. Slow to respond on the ventilator, - tracheostomy.FiO2 50% -Diabetes mellitus 2, uncontrolled with hyperglycemia from steroids. Levemir dose being adjusted -Chronic fibromyalgia -GERD -Essential hypertension, on Cozaar -Hyperlipidemia, on Lipitor -Obstructive sleep apnea does not use CPAP -Diabetic peripheral neuropathy -Primary osteoarthritis of multiple joint -TPN and lipids -taken off -continue tube feeding follow with pulmonary an ID
[2020-11-18] MEDS: ALBUTEROL HFA INHALER INHALATION SCH ×6 (03:06→23:05)
[2020-11-18] MEDS: MORPHINE SULFATE 2 MG/ML SYRINGE IVP PRN ×3 (03:33→22:24)
[2020-11-18 03:49] LABS: Anisocytosis Slight; HGB 8.6 gm/dL (11.4-16.0); Hypochromasia Slight; MCH 30.1 pg (25.0-35.0); MCV 91.1 fL (80.0-100.0); Mean Platelet Volume 7.6; Platelet Count 200 k/uL (150-450); RBC 2.85 m/uL (3.80-5.40); RDW 16.1 % (11.5-15.5); WBC 6.2 k/uL (3.8-10.6)
[2020-11-18 04:06] LABS: African American GFR (CKD) >90 (>60 ml/min/1.73 sqM); Anion Gap 5 mmol/L; Blood Urea Nitrogen 20 mg/dL (7-17); Calcium 8.3 mg/dL (8.4-10.2); Carbon Dioxide 29 mmol/L (22-30); Chloride 109 mmol/L (98-107); Glucose 72 mg/dL (74-99); Non-African American GFR(CKD) >90 (>60 ml/min/1.73 sqM); Potassium 3.7 mmol/L (3.5-5.1); Sodium 143 mmol/L (137-145)
[2020-11-18] MEDS: INSULIN ASPART (NovoLOG) 100 UNIT/ML VIAL SQ SCH ×5 (04:11→20:44)
[2020-11-18 04:25] LABS: Glucose,Whole Blood 79 mg/dL (75-99)
[2020-11-18] MEDS ORDERED: POTASSIUM BICARBONATE/CIT AC 20 MEQ TABLET.EFF NG-TUBE SCH (05:00)
[2020-11-18 05:41] LABS: ABG HCO3 29 mmol/L (21-25); ABG Oxygen Saturation 98.1 % (94-97); ABG PCO2 43 mmHg (35-45); ABG PH 7.44 (7.35-7.45); ABG PO2 89 mmHg (83-108); ABG TCO2 31 mmol/L (19-24); Allen Test Performed? Yes
--- NOTE | 2020-11-18 07:27 | XR ---
EXAMINATION TYPE: XR chest 1V portable DATE OF EXAM: 11/18/2020 Comparison: 11/17/2020 Clinical History: 60-year-old female ICU management Findings: Tracheostomy cannula. Left PICC tip at the mid SVC level. PFO closure device noted. Heart borderline in size. Diffuse interstitial and patchy/confluent peripheral basilar airspace opacities, right great er than left having shown some interval improvement. Impression: Diffuse interstitial opacities and patchy peripheral and basilar airspace disease, right greater than left. There has been slight improvement in aeration as compared to prior exam, particularly on the l eft.
[2020-11-18 08:06] LABS: Glucose,Whole Blood 88 mg/dL (75-99)
[2020-11-18] MEDS: CHOLECALCIFEROL 25 MCG (1000 IU) TABLET PO SCH (08:29)
[2020-11-18] MEDS: CHLORHEXIDINE GLUCONATE 15 ML CUP MUCOUS MEM SCH ×2 (08:29→20:00)
[2020-11-18] MEDS: ATORVASTATIN 20 MG TAB PO SCH (08:29)
[2020-11-18] MEDS: PREGABALIN 100 MG CAP PO SCH ×2 (08:30→20:00)
[2020-11-18] MEDS: OXcarbazepine 150 MG TAB PO SCH ×2 (08:30→20:00)
[2020-11-18] MEDS: predniSONE 10 MG TAB PO SCH (08:30)
[2020-11-18] MEDS: ASCORBIC ACID 500 MG TAB PO SCH (08:30)
[2020-11-18] MEDS: ZINC SULFATE 220 MG CAP PO SCH (08:30)
[2020-11-18] MEDS: TOPIRAMATE 25 MG TAB PO SCH ×2 (08:30→20:00)
[2020-11-18] MEDS: PANTOPRAZOLE 40 MG/10 ML VIAL IVP SCH (08:31)
[2020-11-18] MEDS: LIDOCAINE 5% PATCH TOPICAL SCH (08:31)
[2020-11-18] MEDS: ACETAMINOPHEN TAB 325 MG TAB PO PRN (08:37)
[2020-11-18] MEDS: lamoTRIgine 100 MG TAB PO SCH ×2 (08:40→20:00)
[2020-11-18] MEDS: LOSARTAN 50 MG TAB PO SCH (08:41)
[2020-11-18] MEDS: ENOXAPARIN 40 MG/0.4 ML SYRINGE SQ SCH (08:57)
--- NOTE | 2020-11-18 09:35 | P.PN ---
Subjective Progress Note Date: 11/18/20 Principal diagnosis: Shortness of breath. On 10/22/2020 patient seen in follow-up, she is awake and alert, she remains on 6 L of oxygen her pulse ox is 90-93%, she is breathing comfortably, although still having fever spikes, with a T-max of 101.8F this morning, today's day 2 o f Remdesivir, we added colchicine, she is on oral Decadron 6 mg daily, she is on prophylactic dose of Lovenox, in addition to vitamins. Today's labs have been reviewed, showing d-dimer of 0.85, CRP is down to 4.6, associated LDH value from today, her pro-calcitonin level was 0.27, her influenza and RSV screen were negative. On 10/23/2020 patient seen in follow-up on medical floor, she is awake and alert, oriented 3, she is wheezy, has a congested cough, she is currently on 2 L of oxygen her pulse ox is between 87-93%, she still having some low-grade fevers, today's chest x-ray showing patchy perihilar and basilar infiltrates without significant change. Patient remains on Remdesivir, today is day 3 of treatment, in addition to Decadron, prophylactic doses of Lovenox in her d-dimer remains low at 0.62, in addition to vitamins and colchicine. Her inflammatory markers are coming down, her procalcitonin level was not elevated to 0.27 On 10/26/2019 patient seen in follow-up on medical floor, she is currently on high flow oxygen per year flow at 50 L and FiO2 of 82%, and her pulse ox is 91%, she states his breathing comfortably, overall her breathing is better, she is feeling better, she's had that no fever or chills, hemodynamically stable, no chest discomfort. 0.9 normal saline is infusing at 20 ML per hour, chest x-ray today showed coarse perihilar and basilar infiltrates unchanged from prior study. She finished her Remdesivir treatment yesterday, she remains on bronchodilators, she remains on dexamethasone 6 mg daily, subcu Lovenox 40 mg twice daily, oral Pepcid, vitamin C D and zinc. Today's labs have been reviewed, CBC is within normal limits, d-dimer 0.49, renal profile is unremarkable, CO2 was mildly elevated at 32, the rest of electrolytes were within normal limits, LDH is 346, and CRP is 2.3. No Altered mentation, patient is tolerating oral diet, no nausea vomiting no abdominal pain On 10/27/2020 patient seen in follow-up on medical floor. Patient remains on high flow oxygen per Airvo with 50 L and FiO2 of 82%, and her pulse ox has been 87-89%, patient feels more dyspneic on today's exam, she did have a fever spike earlier today in the morning however it is not recorded. She is coughing, however her cough is dry, nonproductive. No chest pain. Today's chest x-ray shows patchy perihilar basilar infiltrates noted to be slightly improved. Tory ent remains on empiric antibiotics in the form of Rocephin, she is on 6 mg oral dose of Decadron on a daily basis, she is on Lovenox 40 mg twice a day, patient to vitamin C D and zinc. Her last d-dimer yesterday was 0.49, today's labs have been reviewed. Pro-calcitonin is 0.22 on today's labs, inflammatory markers are improving. Progress note dated 10/28/2020. 60-year-old female with a history of severe hypoxemic respiratory failure, secondary to COVID 19 pneumonia. Today, the patient was on AIRVO at 60 L/m, and 90% FiO2, as well as a partial rebreather mask. Her saturations were only in the mid to high 80s and for that reason, the patient was transferred to the intensive care unit for further monitoring and treatment. The patient really has not shown much improvement over the last couple of days. Her chest x-ray actually looked a bit worse to us, but we did give her some Lasix just in case some of what we were seeing related to fluid overload. White count was 5.72, hemoglobin 12.9, hematocrit 39.8, and platelet count 224,000. Sodium was 134, potassium 4, chloride 94, CO2 31, anion gap 9, BUN 15, and creatinine 0.8. Vital signs showed a blood pressure of 87/45, heart rate 79, respiratory rate 24, and a normal temperature. Medications were reviewed and were appropriate. Progress note dated 10/30/2020 60-year-old female with a history of severe hypoxemic respiratory failure. The patient has a history of COVID 19 pneumonia. Currently, the patient is on BiPAP with an IPAP of 12 and EPAP of 6, and 100%. Yesterday, the nurse had a conversation with the patient and before the end that shift, the patient had decided to be a DO NOT RESUSCITATE. Sometime after that, the patient changed her mind. In addition to BiPAP, the patient is on saline at 10 mL an hour. The patient was admitted on 10/21/2020. We did have a long discussion again today about CODE STATUS. The patient did agree to go on life support if necessary. She stated though that if it appeared that she was not going to improve, that she would want to come off of life support and be made comfortable. The patient would not agree to tracheostomy or PEG tube placement. She has not eaten anyt warner she's been on the BiPAP 17/04. Today, we'll place a PICC line, and start her on total parenteral nutrition. Today's temperature is 97.9, heart rate 95, respiratory rate 17, blood pressure 108/59, and saturations between 85-90%. White count is 5.7, hemoglobin 13.4, hematocrit 40.3, and platelet count 268,000. D-dimer is 0.92. Sodium 134, potassium 3.8, chloride 96, CO2 30, anion gap 8, BUN 24, and creatinine 0.8. LDH is 905, C-reactive protein is 202. Chest x-ray stable to minimally improved. Progress note dated 10/31/2020. 60-year-old female, with a history of severe hypoxemic respiratory failure, secondary to COVID 19 pneumonia. The patient remains about the same. The patient is currently on BiPAP, with an IPAP of 12 pending EPAP 6. The patient's FiO2 is set at 100%. She's getting saline at 20 mL an hour and TPN at 30 mL/h with a goal of 60. She has a PICC line in place. The patient did receive, convalescent plasma yesterday. We have talked to her numerous times about CODE STATUS. The patient is currently a full code and would agree to at least short- term intubation and mechanical ventilation. She would not agree to tracheostomy or PEG tube placement. Currently, her white count is 7.5, hemoglobin 13.5, hematocrit 40.5, platelet count 283,000. The patient's d-dimer is 1.03. Sodium 134, potassium 3.8, chlorides 99, CO2 27, anion gap 8, BUN 23, and creatinine 0.67. Chest x-ray is stable to slightly improved. Progress note dated 11/01/2020. 60-year-old female, with a history of severe hypoxemic respiratory failure, secondary to COVID 19 pneumonia. The patient remains in the intensive care unit. She is in room 251. She is on BiPAP with settings of IPAP 12 and EPAP 6, and 100%. She's getting TPN at 60 mL and saline at KVO. The patient's x-ray continues to show bilateral diffuse patchy infiltrates. Today's sodium is 136, potassium 4.1, chloride 101, CO2 30, anion gap 5, BUN 23, and creatinine 0.65. LDH is 8 O2. C-reactive protein is 33.4. Chest x-ray shows bilateral patchy infiltrates, which are unchanged. The patient remains on appropriate medications. On 2020 patient seen in follow-up in the intensive care unit, she is cu rrently on VC plus mode of ventilation with a rate of 34, target volume of 400, FiO2 of 50% and PEEP of 14, inspiratory time is 0.9. This morning blood gases revealed a pO2 of 74, pCO2 42, and pH 7.45. She is currently lightly sedated on Diprivan at 20 mics per kilo per minute, 0.9 normal saline is at 20 ML per hour, patient is receiving tube feedings, she is on vital high protein at 27 with a g oal of 27 and standard water flushes. Patient is status post tracheostomy and PEG tube placement on 11/13/[address] Tidwell, she is in sinus mechanism, she has not required any vasopressors. Her last chest x-ray was done on the showing coarse infiltrates throughout both lungs with more consolidative processes at the right lung base, improving basilar aeration was noted. This morning's labs have been reviewed, white blood cell count of 6.0, hemoglobin is 8.4, sodium is 141, potassium 3.5, chloride was 108, CO2 is 29, BUN is 25, creatinine 0.7. AST was 57, ALT was 63, alkaline phosphatase was 79. Cultures have been reviewed, bloody urine have been negative, latest sputum culture from 11/13/2020 revealed Aspergillus fumigatus. ID service is following, patient is currently on cefepime. Patient remains on 6 mg of dexamethasone IV daily, she is on prophylactic dose of Lovenox 40 mg daily. Patient has been producing 30- 50 ML of urine on the regular basis. Patient does follow commands and moves all 4 extremities. No new chest x-ray today, patient was rechecked for COVID 19 on 11/11/2020 and was found to be positive Progress note dated 11/17/2020. 60-year-old female seen today in the intensive care unit. The patient has been in the hospital for 27 days. She was initially admitted with COVID 19 pneumonia and acute and severe hypoxemic respiratory failure. She has a history of hypertension, type 2 diabetes, hyperlipidemia, COPD, fibromyalgia, sleep apnea syndrome, and chronic hypoxemic respiratory failure. For many days, the patient was not intubated. Finally, the patient did get intubated, and ended up with a tracheostomy and feeding tube. Yesterday, the patient was thinking about comfort measures but apparently she has changed her mind and would like to continue to try to get better. The goal will be to try to get her to a long- term acute care facility. She currently remains on the ventilator, on the pressure regulated volume control modality also known as VC plus. Her respiratory rate is 34, her targeted tidal volume 400, her inspiratory time is 0.9 seconds, her FiO2 is 50%, and her PEEP is 14. Arterial blood gases show a PaO2 of 78, PaCO2 of 42, and a pH is 7.45. Currently, she is on saline at KVO, propofol at 15 mcg/kg/m, and vital high protein at 43, with a goal of 43 mL an hour. The patient's Decadron will be discontinued in favor of prednisone. She's been on steroids for a number of weeks. We will eventually wean the pr ednisone completely off. Her chest x-ray continues to show diffuse bilateral infiltrates. Progress note dated 11/18/2020. 60-year-old female, again seen here in the intensive care unit. She is in room 251. She was initially admitted a number of days back, maybe almost 30, with a diagnosis of COVID 19 pneumonia, with acute hypoxemic respiratory failure. The patient eventually was intubated, and because of failure to wean, had a tracheostomy and PEG tube placed. Currently, the patient remains on the VC plus mode of ventilation. Her targeted tidal volume is 400 mL, inspiratory time, 0.9 seconds, rate is 34, FiO2 50%, and PEEP is 14, to be reduced down to 10 cm water. Arterial blood gases show a PaO2 of 89, PaCO2 of 43, and a pH of 7.43. The blood gases show a relative hypoxemia, and normal acid base status. The patient's getting saline at 20 mL an hour, and propofol has been turned off. She is receiving vital high protein at 43, with a goal of 43 mL an hour. The plan is to try to get this patient off to long-term acute care. We'll make sure that they are consulted. We will get her PEEP down to 8 cm of water. Currently, she is off propofol. Laboratory data today includes a white count of 6.2, hemoglobin 8.6, hematocrit 26.0, and platelet count 200,000. Sodium 143, potassium 3.7, chlorides 109, CO2 29, anion gap 5, BUN 20, and creatinine 0.57. Chest x-ray continues to show bilateral infiltrates. Objective - Vital Signs Vital signs: Vital Signs Temp 99.1 F 11/18/20 08:00 Pulse 86 11/18/20 09:00 Resp 12 11/18/20 09:00 BP 104/66 11/18/20 09:00 Pulse Ox 95 11/18/20 09:00 Intake & Output 11/17/20 11/18/20 11/18/20 18:59 06:59 18:59 Intake Total 846 846 219 Output Total 475 650 135 Balance 371 196 84 Weight 87.543 kg Intake: IV 240 240 60 0.9NS 240 240 60 Tube Feeding 516 516 129 Other 90 90 30 Output: Urine 475 650 135 Other: Voiding Method Indwelling Catheter Indwelling Catheter Indwelling Catheter ABP, PAP, CO, CI - Last Documented Arterial Blood Pressure 79/65 - Exam Currently ventilated, awake, with a midline tracheostomy tube. HEENT examination is grossly unremarkable. Mucous membranes are moist. Neck supple. Full range of motion. No adenopathy thyromegaly or neck vein distention. Midline tracheostomy tube noted. Cardiovascular examination reveals regular rhythm rate. S1-S2 normal. No S3 or S4. No discernible murmur noted. Heart sounds are distant and heart rate is 86 bpm. Lungs reveal coarse bilateral rhonchi, and a few crackles. Breath sounds equal bilaterally but diminished throughout. No wheezes. . Abdomen soft bowel sounds are heard. No masses or tenderness. A PEG tube is noted. Extremities are intact. No cyanosis clubbing or edema. Skin is without rash or lesion. Neurologic examination is brief but nonfocal. - Labs CBC & Chem 7: 11/18/20 03:02 11/18/20 03:02 Labs: Abnormal Lab Results - Last 24 Hours (Table) 11/17/20 11/17/20 11/17/20 Range/Units 12:22 18:08 19:50 RBC (3.80-5.40) m/uL Hgb (11.4-16.0) gm/dL Hct (34.0-46.0) % RDW (11.5-15.5) % ABG HCO3 (21-25) mmol/L ABG Total CO2 (19-24) mmol/L ABG O2 Saturation (94-97) % Chloride (98-107) mmol/L BUN (7-17) mg/dL Glucose (74-99) mg/dL POC Glucose (mg/dL) 134 H 129 H 114 H (75-99) mg/dL Calcium (8.4-10.2) mg/dL 11/18/20 11/18/20 11/18/20 Range/Units 03:02 03:02 05:32 RBC 2.85 L (3.80-5.40) m/uL Hgb 8.6 L (11.4-16.0) gm/dL Hct 26.0 L (34.0-46.0) % RDW 16.1 H (11.5-15.5) % ABG HCO3 29 H (21-25) mmol/L ABG Total CO2 31 H (19-24) mmol/L ABG O2 Saturation 98.1 H (94-97) % Chloride 109 H (98-107) mmol/L BUN 20 H (7-17) mg/dL Glucose 72 L (74-99) mg/dL POC Glucose (mg/dL) (75-99) mg/dL Calcium 8.3 L (8.4-10.2) mg/dL Assessment and Plan Assessment: Acute on chronic hypoxemic respiratory failure, secondary to acute COVID 19 pneumonitis/pneumonia, status post remdesivir. Status post intubation and mechanical ventilation, and subsequent tracheostomy and PEG tube placement (11/13/2020), for failure to wean from mechanical ventilation. History of COPD. Elevated liver enzymes, secondary to rhinovirus infection. Type 2 diabetes mellitus. History of obstructive sleep apnea syndrome. Hyperlipidemia. History of degenerative joint disease. History of bipolar disorder. Suspected critical illness polyneuropathy. Upper GI bleed, resolved. Plan: Plan dated 11/18/2020. The patient's PEEP will be reduced from 14 cm of water down to 10 cm water. The patient remains off of propofol at this time. We will make sure that the long- term acute care facility knows about this patient. The goal is to try to get her out of the hospital by Monday if possible. She does have a PICC line in place. Currently, her respiratory status is stable. She is off propofol. X- rays and labs are reviewed. Medications are also reviewed. Chest x-ray is unchanged. We will continue to follow this patient closely. The patient remains on all appropriate medications. No additional recommendations are made at this time. Prognosis is very guarded. Time with Patient: Greater than 30
[2020-11-18] MEDS: VORICONAZOLE IVPB SCH ×2 (09:43→20:01)
[2020-11-18] MEDS: SODIUM CHLORIDE 0.9% IVPB SCH ×2 (09:43→20:01)
[2020-11-18 11:54] LABS: Glucose,Whole Blood 120 mg/dL (75-99)
--- NOTE | 2020-11-18 13:01 | P.PN ---
Subjective Progress Note Date: 11/18/20 CHIEF COMPLAINT: Shortness of breath HISTORY OF PRESENT ILLNESS: Patient seen and examined with Dr. gerardo. Patient remains in the ICU she is currently on VC mode of ventilation. She is status post tracheostomy and PEG tube placement on 11/13/[address] Gerardo. Patient is tolerating tube feedings. She did have a temp of 100.1 last night. WBC 6.2 PHYSICAL EXAM: VITAL SIGNS: Reviewed. GENERAL: Well-developed in no acute distress. HEENT: No sclera icterus. Extraocular movements grossly intact. Moist buccal mucosa. Head is atraumatic, normocephalic. Tracheostomy site clean dry and in tact ABDOMEN: Soft. Nondistended. Nontender. PEG tube site clean dry and intact NEUROLOGIC: Alert and oriented. Cranial nerves II through XII grossly intact. ASSESSMENT: 1. Acute on chronic hypoxic respiratory failure status post tracheostomy placement 2. Severe protein calorie nutrition status post PEG tube placement 3. Covid 19 pneumonia PLAN: -Continue supportive care -Continue ICU management -Continue PEG tube feedings Physician Program Director [employer] note has been reviewed by physician. Signing provider agrees with the documented findings, assessment, and plan of care. Objective - Vital Signs Vital signs: Vital Signs Temp 99.0 F 11/18/20 12:00 Pulse 76 11/18/20 12:00 Resp 24 11/18/20 12:00 BP 106/67 11/18/20 12:00 Pulse Ox 94 L 11/18/20 12:00 Intake & Output 11/17/20 11/18/20 11/18/20 18:59 06:59 18:59 Intake Total 846 846 718 Output Total 475 650 285 Balance 371 196 433 Weight 87.543 kg 87.543 kg Intake: IV 240 240 120 0.9NS 240 240 120 Intake, IV Titration 250 Amount Voriconazole 350 mg In 250 Sodium Chloride 0.9% 250 ml @ 125 mls/hr IVPB Q12HR [facility] Rx#:[id number] Tube Feeding 516 516 288 Other 90 90 60 Output: Urine 475 650 285 Other: Voiding Method Indwelling Catheter Indwelling Catheter Indwelling Catheter ABP, PAP, CO, CI - Last Documented Arterial Blood Pressure 79/65 - Labs CBC & Chem 7: 11/18/20 03:02 11/18/20 03:02 Labs: Abnormal Lab Results - Last 24 Hours (Table) 11/17/20 11/17/20 11/18/20 Range/Units 18:08 19:50 03:02 RBC 2.85 L (3.80-5.40) m/uL Hgb 8.6 L (11.4-16.0) gm/dL Hct 26.0 L (34.0-46.0) % RDW 16.1 H (11.5-15.5) % ABG HCO3 (21-25) mmol/L ABG Total CO2 (19-24) mmol/L ABG O2 Saturation (94-97) % Chloride (98-107) mmol/L BUN (7-17) mg/dL Glucose (74-99) mg/dL POC Glucose (mg/dL) 129 H 114 H (75-99) mg/dL Calcium (8.4-10.2) mg/dL 11/18/20 11/18/20 11/18/20 Range/Units 03:02 05:32 11:52 RBC (3.80-5.40) m/uL Hgb (11.4-16.0) gm/dL Hct (34.0-46.0) % RDW (11.5-15.5) % ABG HCO3 29 H (21-25) mmol/L ABG Total CO2 31 H (19-24) mmol/L ABG O2 Saturation 98.1 H (94-97) % Chloride 109 H (98-107) mmol/L BUN 20 H (7-17) mg/dL Glucose 72 L (74-99) mg/dL POC Glucose (mg/dL) 120 H (75-99) mg/dL Calcium 8.3 L (8.4-10.2) mg/dL
[2020-11-18 16:57] LABS: Glucose,Whole Blood 134 mg/dL (75-99)
--- NOTE | 2020-11-18 19:02 | P.PN ---
Progress Note - Text Progress Note Date: 11/18/20 Chief Complaint: Short of breath History of presenting complaint: This is a 60-year-old patient who follows with Yajaira Barber. Chronic stable medical conditions include diabetes, fibromyalgia, GERD, hypertension, hyperlipidemia, osteoarthritis, obstructive sleep apnea. She is on 3 L of nasal cannula home. Night has been getting it more often lately. Diabetic peripheral neuropathy, obstructive sleep apnea does not use CPAP, chronic kidney disease, arthritis in multiple joints, bipolar schizoaffective disorder. Patient presents of 1 week of increasing shortness of breath. Cough. Slight phlegm. Has had fever for 2 days. Decrease appetite some headaches no loss of taste or smell. No diarrhea. Body aches all over. Patient tested for COVID 19 in the ER. Still somewhat tired rundown. Admitted with bilateral COVID 19 pneumonia, acute hypoxic respiratory failure, acute COPD exacerbation. Patient was started on dexamethasone, Lovenox, Remdesivir, vitamin C vitamin D and zinc. Pulmonary was consulted. Patient has been requiring BiPAP. On October 28 because of increasing oxygen requirement patient is moved to the ICU. Patient was started on IV cefepime and vancomycin. Given convalescent plasma on October 30. PICC line placed-started on TPN and lipids. intubated November 06. November 13-PEG tube and tracheostomy tube done. Sputum grew Aspergillus fumigatus. Voriconazole was added. Today-ICU: Ventilator with FiO2 50 and a PEEP of 10. Telemetry-sinus rhythm. 2 feeding at 53 mL an hour. Patient is awake, communicating. Review of systems: Difficult to obtain Active Medications Acetaminophen (Acetaminophen Tab 325 Mg Tab) 650 mg PO Q6HR PRN PRN Reason: Fever and/ or Pain Last Admin: 11/18/20 08:37 Dose: 650 mg Documented by: Albuterol Sulfate (Albuterol Hfa Inhaler) 4 puff INHALATION Q4H [facility] Last Admin: 11/18/20 15:00 Dose: 4 puff Documented by: Aripiprazole (Aripiprazole 10 Mg Tab) 10 mg PO HS [facility] Last Admin: 11/17/20 20:11 Dose: 10 mg Documented by: Aripiprazole (Aripiprazole 20 Mg Tab) 20 mg PO DAILY [facility] Last Admin: 11/18/20 08:30 Dose: 20 mg Documented by: Artificial Tears (Artificial Tears-Hypromellose Drops 15 Ml Btl) 1 drops BOTH EYES QID PRN PRN Reason: Dry Eye(s) Last Admin: 10/29/20 18:47 Dose: 1 drops Documented by: Ascorbic Acid (Ascorbic Acid 500 Mg Tab) 500 mg PO DAILY [facility] Last Admin: 11/18/20 08:30 Dose: 500 mg Documented by: Atorvastatin Calcium (Atorvastatin 20 Mg Tab) 20 mg PO DAILY [facility] Last Admin: 11/18/20 08:29 Dose: 20 mg Documented by: Chlorhexidine Gluconate (Chlorhexidine Gluconate 15 Ml Cup) 15 ml MUCOUS MEM BID [facility] Last Admin: 11/18/20 08:29 Dose: 15 ml Documented by: Cholecalciferol (Cholecalciferol 25 Mcg (1000 Iu) Tablet) 100 mcg PO DAILY [facility] Last Admin: 11/18/20 08:29 Dose: 100 mcg Documented by: Clonazepam (Clonazepam 0.5 Mg Tab) 0.5 mg PO HS [facility] Last Admin: 11/17/20 20:10 Dose: 0.5 mg Documented by: Enoxaparin Sodium (Enoxaparin 40 Mg/0.4 Ml Syringe) 40 mg SQ DAILY [facility] Last Admin: 11/18/20 08:57 Dose: 40 mg Documented by: Propofol 500 mg/ IV Solution 50 mls @ 0 mls/hr IV .Q0M [facility]; Protocol Last Admin: 11/17/20 00:23 Dose: 10 mcg/kg/min, 5.07 mls/hr Documented by: Voriconazole 350 mg/ Sodium (Chloride) 250 mls @ 125 mls/hr IVPB Q12HR [facility] Last Admin: 11/18/20 09:43 Dose: 125 mls/hr Documented by: Insulin Aspart (Insulin Aspart (Novolog) 100 Unit/Ml Vial) 0 unit SQ Q4H [facility]; Protocol Last Admin: 11/18/20 16:58 Dose: Not Given Documented by: Insulin Detemir (Insulin Detemir (Levemir) 100 Unit/Ml Syr) 36 unit SQ [facility] Last Admin: 11/17/20 20:11 Dose: 36 unit Documented by: Lamotrigine (Lamotrigine 100 Mg Tab) 150 mg PO BID [facility] Last Admin: 11/18/20 08:40 Dose: 150 mg Documented by: Lidocaine (Lidocaine 5% Patch) 1 patch TOPICAL DAILY [facility] Last Admin: 11/18/20 08:31 Dose: 1 patch Documented by: Losartan Potassium (Losartan 50 Mg Tab) 50 mg PO DAILY [facility] Last Admin: 11/18/20 08:41 Dose: Not Given Documented by: Meclizine HCl (Meclizine 25 Mg Tab) 25 mg PO Q8H PRN PRN Reason: Nausea And Vomiting Miscellaneous Information (Magnesium Replacement Protocol 1 Each Misc) 1 each MISCELLANE DAILY PRN; Protocol PRN Reason: Per Protocol Miscellaneous Information (Potassium Replacement Protocol 1 Each Misc) 1 each MISCELLANE DAILY PRN; Protocol PRN Reason: Per Protocol Morphine Sulfate (Morphine Sulfate 2 Mg/Ml Syringe) 2 mg IVP Q4H PRN PRN Reason: Pain/Discomfort Last Admin: 11/18/20 17:33 Dose: 2 mg Documented by: Oxcarbazepine (Oxcarbazepine 150 Mg Tab) 150 mg PO BID [facility] Last Admin: 11/18/20 08:30 Dose: 150 mg Documented by: Pantoprazole Sodium (Pantoprazole 40 Mg/10 Ml Vial) 40 mg IVP DAILY [facility] Last Admin: 11/18/20 08:31 Dose: 40 mg Documented by: Prednisone (Prednisone 10 Mg Tab) 10 mg PO DAILY [facility] Last Admin: 11/18/20 08:30 Dose: 10 mg Documented by: Pregabalin (Pregabalin 100 Mg Cap) 100 mg PO BID [facility] Last Admin: 11/18/20 08:30 Dose: 100 mg Documented by: Sumatriptan Succinate (Sumatriptan Succinate 50 Mg Tab) 100 mg PO BID PRN PRN Reason: Migraine Headache Topiramate (Topiramate 25 Mg Tab) 50 mg PO BID [facility] Last Admin: 11/18/20 08:30 Dose: 50 mg Documented by: Zinc Sulfate (Zinc Sulfate 220 Mg Cap) 220 mg PO DAILY [facility] Last Admin: 11/18/20 08:30 Dose: 220 mg Documented by: Past medical history to include: COPD, diabetes, fibromyalgia, GERD, hyperlipidemia, hypertension, obstructive sleep apnea does not use CPAP, home oxygen 3 L normal. Night, diabetic peripheral neuropathy, chronic kidney disease, bipolar depression, schizoaffective disorder. Social history: Lives with her daughter. Disabled. Home oxygen. Smoked from 9065 through 2009. In the past used several street drugs but not so since 1989. Physical examination: VITAL SIGNS: 99, 76, 34, 106/67, 94% on FiO2 50% GENERAL: Laying in bed, tracheostomy, awake PSYCHIATRY: Answering questions slowly NEUROLOGICAL: Following commands, eyes open Physical exam as per pulmonary and nursing INVESTIGATIONS, reviewed in the clinical context: November 18: White count 6.2 hemoglobin 8.6 potassium 3.7 creatinine 0.57 November 17:WBC 6.3 hemoglobin 8.3 potassium 3.6 creatinine 0.64 November 08: WBC 40.4 hemoglobin 11.4 d-dimer 1.9 potassium 4.6 creatinine 0.71 CRP 83 November 07: WBC 13.9 hemoglobin 11.7 platelets 270 ABG-pH 7.3 pCO2 64 pO2 131 MRSA nasal screen-negative. November 04: D-dimer 4.4 CRP 40.1 pro-calcitonin 0.11 October 28: D-dimer 0.78 CRP 169 pro-calcitonin 0.38 Chest x-ray from yesterday-scattered infiltrates Admission labs: White count 7.2 hemoglobin 15.1 decreased lymphocytes d-dimer 0.85 potassium 3.3 creatinine 0.90 glucose 205 EST 106 ALT 103 CRP 37.2 procalcitonin 0.27 Influenza type A, type B both not detected. RSV P/Cr-not detected. Coronavirus [PCR]-detected EKG tracing personally reviewed by me-normal sinus rhythm some slight ST segment changes Chest x-ray film personally reviewed by me-bilateral basilar infiltrates Assessment and plan: -Bilateral COVID 19 pneumonia causing sepsis. received Remdesivir. Convalescent plasma. colchicine. Received dexamethasone - Solu-Medrol , Decadron,-now on prednisone. and Lovenox -secondary bacterial pneumonia infection with IV cefepime-discontinued on November 16, [ IV vancomycin.. MRSA nasal screen negative. vancomycin discontinued]. Sputum also positive for Aspergillus fumigatus. On voriconazole -Acute COPD exacerbation in an [id number] to respond -acute hypoxic respiratory failure, requiring BiPAP-; intubated November 06. Slow to respond on the ventilator, - tracheostomy.FiO2 50% -Diabetes mellitus 2, uncontrolled with hyperglycemia from steroids. Levemir dose being adjusted -Chronic fibromyalgia -GERD, on Pepcid -Essential hypertension, on Cozaar -Hyperlipidemia, on Lipitor -Obstructive sleep apnea does not use CPAP -Diabetic peripheral neuropathy -Primary osteoarthritis of multiple joint -TPN and lipids -taken off -continue tube feeding follow with pulmonary and ID
[2020-11-18] MEDS: FAMOTIDINE 20 MG TAB PO SCH (20:00)
[2020-11-18] MEDS: clonazePAM 0.5 MG TAB PO SCH (20:00)
[2020-11-18] MEDS: ARIPiprazole 10 MG TAB PO SCH (20:24)
[2020-11-18 20:35] LABS: Glucose,Whole Blood 129 mg/dL (75-99)
[2020-11-18] MEDS: INSULIN DETEMIR (LEVEMIR) 100 UNIT/ML SYR SQ SCH (20:44)
--- NOTE | 2020-11-18 23:31 | PN ---
PROGRESS NOTE DATE OF SERVICE: 11/18/2020 REASON FOR FOLLOWUP: Aspergillosis. INTERVAL HISTORY: The patient is currently afebrile. The patient is breathing more comfortably. The patient denies having any chest pain. Minimal cough. No nausea, no vomiting, no abdominal pain or diarrhea. PHYSICAL EXAMINATION: Blood pressure 122/58 with a pulse of 77, temperature 99.4. She is 98% on 50% FiO2. General description is a middle-aged female lying in bed in no distress. RESPIRATORY SYSTEM: Unlabored breathing. Coarse bilateral rhonchi. HEART: S1, S2. Regular rate and rhythm. ABDOMEN: Soft. No tenderness. LABS: Hemoglobin 8.6, white count 6.2, BUN of 20, creatinine 0.57. DIAGNOSTIC IMPRESSION AND PLAN: Patient with acute respiratory failure which is multifactorial in this patient with an initial diagnosis of COVID-19 followed by acute respiratory failure with concern for possible secondary bacterial pneumonia. Sputum has been finalized with aspergillus in this patient who has been steroids for aspergillus patient is covered with voriconazole and seems to have shown a clinical response; to continue and monitor her clinical course closely. MMODL / IJN: [id number] /
[2020-11-19] MEDS: ALBUTEROL HFA INHALER INHALATION SCH ×6 (03:00→23:52)
[2020-11-19 03:59] LABS: Anisocytosis Slight; HCT 25.8 % (34.0-46.0); HGB 8.4 gm/dL (11.4-16.0); Hypochromasia Slight; MCH 29.7 pg (25.0-35.0); MCHC 32.5 g/dL (31.0-37.0); MCV 91.3 fL (80.0-100.0); Mean Platelet Volume 7.4; Platelet Count 234 k/uL (150-450); RBC 2.82 m/uL (3.80-5.40); RDW 16.4 % (11.5-15.5); WBC 5.7 k/uL (3.8-10.6)
[2020-11-19 04:37] LABS: African American GFR (CKD) >90 (>60 ml/min/1.73 sqM); Anion Gap 6 mmol/L; Blood Urea Nitrogen 19 mg/dL (7-17); Calcium 8.3 mg/dL (8.4-10.2); Carbon Dioxide 29 mmol/L (22-30); Chloride 108 mmol/L (98-107); Glucose 108 mg/dL (74-99); Non-African American GFR(CKD) >90 (>60 ml/min/1.73 sqM); Potassium 3.7 mmol/L (3.5-5.1); Sodium 143 mmol/L (137-145)
[2020-11-19] MEDS ORDERED: POTASSIUM BICARBONATE/CIT AC 20 MEQ TABLET.EFF NG-TUBE SCH (05:00)
[2020-11-19] MEDS: INSULIN ASPART (NovoLOG) 100 UNIT/ML VIAL SQ SCH ×6 (05:04→22:47)
[2020-11-19 05:28] LABS: ABG Base Excess 3.5 mmol/L; ABG HCO3 28 mmol/L (21-25); ABG Oxygen Saturation 99.9 % (94-97); ABG PCO2 46 mmHg (35-45); ABG PO2 150 mmHg (83-108); ABG TCO2 30 mmol/L (19-24); Allen Test Performed? Yes
--- NOTE | 2020-11-19 06:57 | XR ---
EXAMINATION TYPE: XR chest 1V portable DATE OF EXAM: 11/19/2020 HISTORY: Shortness of breath. COMPARISON: 11/18/2020 TECHNIQUE: Single view of the chest is submitted. FINDINGS: Tracheostomy tube and left-sided PICC line are in place. Coarse infiltrates are seen throughout both lung pool with more confluent opacity right lower lobe. Overall no significant change appreciated. The heart is stable. Hilar and mediastinal structures are within normal limits. Degenerative changes are seen of the dorsal spine. IMPRESSION: 1. Stable chest.
[2020-11-19] MEDS ORDERED: PANTOPRAZOLE 40 MG TABLET PO SCH (07:30)
[2020-11-19] MEDS: CHLORHEXIDINE GLUCONATE 15 ML CUP MUCOUS MEM SCH ×2 (08:46→22:48)
[2020-11-19] MEDS: ENOXAPARIN 40 MG/0.4 ML SYRINGE SQ SCH (08:46)
[2020-11-19] MEDS: FAMOTIDINE 20 MG TAB PO SCH (08:47)
[2020-11-19] MEDS: ASCORBIC ACID 500 MG TAB PO SCH (08:47)
[2020-11-19] MEDS: TOPIRAMATE 25 MG TAB PO SCH ×2 (08:47→22:48)
[2020-11-19] MEDS: ATORVASTATIN 20 MG TAB PO SCH (08:48)
[2020-11-19] MEDS: CHOLECALCIFEROL 25 MCG (1000 IU) TABLET PO SCH (08:48)
[2020-11-19] MEDS: lamoTRIgine 100 MG TAB PO SCH ×2 (08:49→22:48)
[2020-11-19] MEDS: OXcarbazepine 150 MG TAB PO SCH ×2 (08:50→22:49)
[2020-11-19 08:59] LABS: Glucose,Whole Blood 139 mg/dL (75-99)
[2020-11-19] MEDS: ZINC SULFATE 220 MG CAP PO SCH (09:04)
[2020-11-19] MEDS: VORICONAZOLE IVPB SCH ×2 (09:07→22:49)
[2020-11-19] MEDS: PREGABALIN 100 MG CAP PO SCH ×2 (09:07→22:49)
[2020-11-19] MEDS: SODIUM CHLORIDE 0.9% IVPB SCH ×2 (09:07→22:49)
[2020-11-19] MEDS: predniSONE 10 MG TAB PO SCH (09:07)
[2020-11-19] MEDS: LIDOCAINE 5% PATCH TOPICAL SCH (09:08)
[2020-11-19] MEDS: ACETAMINOPHEN TAB 325 MG TAB PO PRN ×2 (09:17→14:50)
[2020-11-19] MEDS: LOSARTAN 50 MG TAB PO SCH (09:31)
--- NOTE | 2020-11-19 10:04 | P.PN ---
Subjective Progress Note Date: 11/19/20 Principal diagnosis: Shortness of breath. On 10/22/2020 patient seen in follow-up, she is awake and alert, she remains on 6 L of oxygen her pulse ox is 90-93%, she is breathing comfortably, although still having fever spikes, with a T-max of 101.8F this morning, today's day 2 o f Remdesivir, we added colchicine, she is on oral Decadron 6 mg daily, she is on prophylactic dose of Lovenox, in addition to vitamins. Today's labs have been reviewed, showing d-dimer of 0.85, CRP is down to 4.6, associated LDH value from today, her pro-calcitonin level was 0.27, her influenza and RSV screen were negative. On 10/23/2020 patient seen in follow-up on medical floor, she is awake and alert, oriented 3, she is wheezy, has a congested cough, she is currently on 2 L of oxygen her pulse ox is between 87-93%, she still having some low-grade fevers, today's chest x-ray showing patchy perihilar and basilar infiltrates without significant change. Patient remains on Remdesivir, today is day 3 of treatment, in addition to Decadron, prophylactic doses of Lovenox in her d-dimer remains low at 0.62, in addition to vitamins and colchicine. Her inflammatory markers are coming down, her procalcitonin level was not elevated to 0.27 On 10/26/2019 patient seen in follow-up on medical floor, she is currently on high flow oxygen per year flow at 50 L and FiO2 of 82%, and her pulse ox is 91%, she states his breathing comfortably, overall her breathing is better, she is feeling better, she's had that no fever or chills, hemodynamically stable, no chest discomfort. 0.9 normal saline is infusing at 20 ML per hour, chest x-ray today showed coarse perihilar and basilar infiltrates unchanged from prior study. She finished her Remdesivir treatment yesterday, she remains on bronchodilators, she remains on dexamethasone 6 mg daily, subcu Lovenox 40 mg twice daily, oral Pepcid, vitamin C D and zinc. Today's labs have been reviewed, CBC is within normal limits, d-dimer 0.49, renal profile is unremarkable, CO2 was mildly elevated at 32, the rest of electrolytes were within normal limits, LDH is 346, and CRP is 2.3. No Altered mentation, patient is tolerating oral diet, no nausea vomiting no abdominal pain On 10/27/2020 patient seen in follow-up on medical floor. Patient remains on high flow oxygen per Airvo with 50 L and FiO2 of 82%, and her pulse ox has been 87-89%, patient feels more dyspneic on today's exam, she did have a fever spike earlier today in the morning however it is not recorded. She is coughing, however her cough is dry, nonproductive. No chest pain. Today's chest x-ray shows patchy perihilar basilar infiltrates noted to be slightly improved. Tory ent remains on empiric antibiotics in the form of Rocephin, she is on 6 mg oral dose of Decadron on a daily basis, she is on Lovenox 40 mg twice a day, patient to vitamin C D and zinc. Her last d-dimer yesterday was 0.49, today's labs have been reviewed. Pro-calcitonin is 0.22 on today's labs, inflammatory markers are improving. Progress note dated 10/28/2020. 60-year-old female with a history of severe hypoxemic respiratory failure, secondary to COVID 19 pneumonia. Today, the patient was on AIRVO at 60 L/m, and 90% FiO2, as well as a partial rebreather mask. Her saturations were only in the mid to high 80s and for that reason, the patient was transferred to the intensive care unit for further monitoring and treatment. The patient really has not shown much improvement over the last couple of days. Her chest x-ray actually looked a bit worse to us, but we did give her some Lasix just in case some of what we were seeing related to fluid overload. White count was 5.72, hemoglobin 12.9, hematocrit 39.8, and platelet count 224,000. Sodium was 134, potassium 4, chloride 94, CO2 31, anion gap 9, BUN 15, and creatinine 0.8. Vital signs showed a blood pressure of 87/45, heart rate 79, respiratory rate 24, and a normal temperature. Medications were reviewed and were appropriate. Progress note dated 10/30/2020 60-year-old female with a history of severe hypoxemic respiratory failure. The patient has a history of COVID 19 pneumonia. Currently, the patient is on BiPAP with an IPAP of 12 and EPAP of 6, and 100%. Yesterday, the nurse had a conversation with the patient and before the end that shift, the patient had decided to be a DO NOT RESUSCITATE. Sometime after that, the patient changed her mind. In addition to BiPAP, the patient is on saline at 10 mL an hour. The patient was admitted on 10/21/2020. We did have a long discussion again today about CODE STATUS. The patient did agree to go on life support if necessary. She stated though that if it appeared that she was not going to improve, that she would want to come off of life support and be made comfortable. The patient would not agree to tracheostomy or PEG tube placement. She has not eaten anyt warner she's been on the BiPAP 17/04. Today, we'll place a PICC line, and start her on total parenteral nutrition. Today's temperature is 97.9, heart rate 95, respiratory rate 17, blood pressure 108/59, and saturations between 85-90%. White count is 5.7, hemoglobin 13.4, hematocrit 40.3, and platelet count 268,000. D-dimer is 0.92. Sodium 134, potassium 3.8, chloride 96, CO2 30, anion gap 8, BUN 24, and creatinine 0.8. LDH is 905, C-reactive protein is 202. Chest x-ray stable to minimally improved. Progress note dated 10/31/2020. 60-year-old female, with a history of severe hypoxemic respiratory failure, secondary to COVID 19 pneumonia. The patient remains about the same. The patient is currently on BiPAP, with an IPAP of 12 pending EPAP 6. The patient's FiO2 is set at 100%. She's getting saline at 20 mL an hour and TPN at 30 mL/h with a goal of 60. She has a PICC line in place. The patient did receive, convalescent plasma yesterday. We have talked to her numerous times about CODE STATUS. The patient is currently a full code and would agree to at least short- term intubation and mechanical ventilation. She would not agree to tracheostomy or PEG tube placement. Currently, her white count is 7.5, hemoglobin 13.5, hematocrit 40.5, platelet count 283,000. The patient's d-dimer is 1.03. Sodium 134, potassium 3.8, chlorides 99, CO2 27, anion gap 8, BUN 23, and creatinine 0.67. Chest x-ray is stable to slightly improved. Progress note dated 11/01/2020. 60-year-old female, with a history of severe hypoxemic respiratory failure, secondary to COVID 19 pneumonia. The patient remains in the intensive care unit. She is in room 251. She is on BiPAP with settings of IPAP 12 and EPAP 6, and 100%. She's getting TPN at 60 mL and saline at KVO. The patient's x-ray continues to show bilateral diffuse patchy infiltrates. Today's sodium is 136, potassium 4.1, chloride 101, CO2 30, anion gap 5, BUN 23, and creatinine 0.65. LDH is 8 O2. C-reactive protein is 33.4. Chest x-ray shows bilateral patchy infiltrates, which are unchanged. The patient remains on appropriate medications. On 2020 patient seen in follow-up in the intensive care unit, she is cu rrently on VC plus mode of ventilation with a rate of 34, target volume of 400, FiO2 of 50% and PEEP of 14, inspiratory time is 0.9. This morning blood gases revealed a pO2 of 74, pCO2 42, and pH 7.45. She is currently lightly sedated on Diprivan at 20 mics per kilo per minute, 0.9 normal saline is at 20 ML per hour, patient is receiving tube feedings, she is on vital high protein at 27 with a g oal of 27 and standard water flushes. Patient is status post tracheostomy and PEG tube placement on 11/13/[address] Tidwell, she is in sinus mechanism, she has not required any vasopressors. Her last chest x-ray was done on the showing coarse infiltrates throughout both lungs with more consolidative processes at the right lung base, improving basilar aeration was noted. This morning's labs have been reviewed, white blood cell count of 6.0, hemoglobin is 8.4, sodium is 141, potassium 3.5, chloride was 108, CO2 is 29, BUN is 25, creatinine 0.7. AST was 57, ALT was 63, alkaline phosphatase was 79. Cultures have been reviewed, bloody urine have been negative, latest sputum culture from 11/13/2020 revealed Aspergillus fumigatus. ID service is following, patient is currently on cefepime. Patient remains on 6 mg of dexamethasone IV daily, she is on prophylactic dose of Lovenox 40 mg daily. Patient has been producing 30- 50 ML of urine on the regular basis. Patient does follow commands and moves all 4 extremities. No new chest x-ray today, patient was rechecked for COVID 19 on 11/11/2020 and was found to be positive Progress note dated 11/17/2020. 60-year-old female seen today in the intensive care unit. The patient has been in the hospital for 27 days. She was initially admitted with COVID 19 pneumonia and acute and severe hypoxemic respiratory failure. She has a history of hypertension, type 2 diabetes, hyperlipidemia, COPD, fibromyalgia, sleep apnea syndrome, and chronic hypoxemic respiratory failure. For many days, the patient was not intubated. Finally, the patient did get intubated, and ended up with a tracheostomy and feeding tube. Yesterday, the patient was thinking about comfort measures but apparently she has changed her mind and would like to continue to try to get better. The goal will be to try to get her to a long- term acute care facility. She currently remains on the ventilator, on the pressure regulated volume control modality also known as VC plus. Her respiratory rate is 34, her targeted tidal volume 400, her inspiratory time is 0.9 seconds, her FiO2 is 50%, and her PEEP is 14. Arterial blood gases show a PaO2 of 78, PaCO2 of 42, and a pH is 7.45. Currently, she is on saline at KVO, propofol at 15 mcg/kg/m, and vital high protein at 43, with a goal of 43 mL an hour. The patient's Decadron will be discontinued in favor of prednisone. She's been on steroids for a number of weeks. We will eventually wean the pr ednisone completely off. Her chest x-ray continues to show diffuse bilateral infiltrates. Progress note dated 11/18/2020. 60-year-old female, again seen here in the intensive care unit. She is in room 251. She was initially admitted a number of days back, maybe almost 30, with a diagnosis of COVID 19 pneumonia, with acute hypoxemic respiratory failure. The patient eventually was intubated, and because of failure to wean, had a tracheostomy and PEG tube placed. Currently, the patient remains on the VC plus mode of ventilation. Her targeted tidal volume is 400 mL, inspiratory time, 0.9 seconds, rate is 34, FiO2 50%, and PEEP is 14, to be reduced down to 10 cm water. Arterial blood gases show a PaO2 of 89, PaCO2 of 43, and a pH of 7.43. The blood gases show a relative hypoxemia, and normal acid base status. The patient's getting saline at 20 mL an hour, and propofol has been turned off. She is receiving vital high protein at 43, with a goal of 43 mL an hour. The plan is to try to get this patient off to long-term acute care. We'll make sure that they are consulted. We will get her PEEP down to 8 cm of water. Currently, she is off propofol. Laboratory data today includes a white count of 6.2, hemoglobin 8.6, hematocrit 26.0, and platelet count 200,000. Sodium 143, potassium 3.7, chlorides 109, CO2 29, anion gap 5, BUN 20, and creatinine 0.57. Chest x-ray continues to show bilateral infiltrates. Progress note dated 11/19/2020. 60-year-old female, again seen in the intensive care unit, room 251. She's been in the hospital for nearly a month. The patient was admitted on 10/21/2020. Her initial admission diagnosis was that of acute hypoxemic respiratory failure, secondary to COVID 19 pneumonia. The patient remains on mechanical ventilator. She is on the pressure regulated volume control modality or VC plus. With a rate of 34, a targeted tidal volume of 400, inspiratory time of 0.9 seconds, FiO2 50%, and a PEEP of 10. Gen. blood gases show a PaO2 of 150, PaCO2 of 46, and a pH is 7.39. The PEEP is reduced from 10 down to a PEEP of 5. Currently, she is on saline at KVO, propofol, which is currently off, and vital high protein, 53 mL an hour, which is goal. She had uneventful night according to the nurse. In my opinion, she is ready to be transferred to a long-term acute care facility. Currently, her white count is 5.7, hemoglobin 8.4, hematocrit 25.8, and a platelet count which is normal. Sodium is 143, potassium 3.7, chlorides 108, CO2 29, anion gap 6, BUN 19, creatinine 0.59. Microbiology is currently still negative, and chest x-ray shows diffuse bilateral infiltrates. Objective - Vital Signs Vital signs: Vital Signs Temp 99.5 F 11/19/20 08:00 Pulse 78 11/19/20 09:00 Resp 34 H 11/19/20 09:00 BP 103/55 11/19/20 09:00 Pulse Ox 97 11/19/20 09:00 Intake & Output 11/18/20 11/19/20 11/19/20 18:59 06:59 18:59 Intake Total 1186 966 249 Output Total 905 430 185 Balance 281 536 64 Weight 87.543 kg 87.6 kg Intake: IV 240 240 60 0.9NS 240 240 60 Intake, IV Titration 250 Amount Voriconazole 350 mg In 250 Sodium Chloride 0.9% 250 ml @ 125 mls/hr IVPB Q12HR [facility] Rx#:[id number] Tube Feeding 606 636 159 Other 90 90 30 Output: Urine 905 430 185 Other: Voiding Method Indwelling Catheter Indwelling Catheter ABP, PAP, CO, CI - Last Documented Arterial Blood Pressure 79/65 - Exam Currently ventilated, awake, with a midline tracheostomy tube. HEENT examination is grossly unremarkable. Mucous membranes are moist. Neck supple. Full range of motion. No adenopathy thyromegaly or neck vein distention. Midline tracheostomy tube noted. Cardiovascular examination reveals regular rhythm rate. S1-S2 normal. No S3 or S4. No discernible murmur noted. Heart sounds are distant and heart rate is 78 bpm. Lungs reveal coarse bilateral rhonchi, and a few crackles. Breath sounds equal bilaterally but diminished throughout. No wheezes. . Abdomen soft bowel sounds are heard. No masses or tenderness. A PEG tube is noted. Extremities are intact. No cyanosis clubbing or edema. Skin is without rash or lesion. Neurologic examination is brief but nonfocal. - Labs CBC & Chem 7: 11/19/20 03:26 11/19/20 03:26 Labs: Abnormal Lab Results - Last 24 Hours (Table) 11/18/20 11/18/20 11/18/20 Range/Units 11:52 16:56 20:34 RBC (3.80-5.40) m/uL Hgb (11.4-16.0) gm/dL Hct (34.0-46.0) % RDW (11.5-15.5) % ABG pCO2 (35-45) mmHg ABG pO2 (83-108) mmHg ABG HCO3 (21-25) mmol/L ABG Total CO2 (19-24) mmol/L ABG O2 Saturation (94-97) % Chloride (98-107) mmol/L BUN (7-17) mg/dL Glucose (74-99) mg/dL POC Glucose (mg/dL) 120 H 134 H 129 H (75-99) mg/dL Calcium (8.4-10.2) mg/dL 11/19/20 11/19/20 11/19/20 Range/Units 03:26 03:26 05:18 RBC 2.82 L (3.80-5.40) m/uL Hgb 8.4 L (11.4-16.0) gm/dL Hct 25.8 L (34.0-46.0) % RDW 16.4 H (11.5-15.5) % ABG pCO2 46 H (35-45) mmHg ABG pO2 150 H (83-108) mmHg ABG HCO3 28 H (21-25) mmol/L ABG Total CO2 30 H (19-24) mmol/L ABG O2 Saturation 99.9 H (94-97) % Chloride 108 H (98-107) mmol/L BUN 19 H (7-17) mg/dL Glucose 108 H (74-99) mg/dL POC Glucose (mg/dL) (75-99) mg/dL Calcium 8.3 L (8.4-10.2) mg/dL 11/19/20 Range/Units 08:57 RBC (3.80-5.40) m/uL Hgb (11.4-16.0) gm/dL Hct (34.0-46.0) % RDW (11.5-15.5) % ABG pCO2 (35-45) mmHg ABG pO2 (83-108) mmHg ABG HCO3 (21-25) mmol/L ABG Total CO2 (19-24) mmol/L ABG O2 Saturation (94-97) % Chloride (98-107) mmol/L BUN (7-17) mg/dL Glucose (74-99) mg/dL POC Glucose (mg/dL) 139 H (75-99) mg/dL Calcium (8.4-10.2) mg/dL Assessment and Plan Assessment: Acute on chronic hypoxemic respiratory failure, secondary to acute COVID 19 pneumonitis/pneumonia, status post remdesivir. Status post intubation and mechanical ventilation, and subsequent tracheostomy and PEG tube placement (11/13/2020), for failure to wean from mechanical ventilation. History of COPD. Elevated liver enzymes, secondary to rhinovirus infection. Type 2 diabetes mellitus. History of obstructive sleep apnea syndrome. Hyperlipidemia. History of degenerative joint disease. History of bipolar disorder. Suspected critical illness polyneuropathy. Upper GI bleed, resolved. Plan: Plan dated 11/19/2020. In my opinion, patient is ready to be transferred to a long-term acute care. Patient's PEEP levels have come down nicely. She is currently off all sedation. She's getting her tube feeds of vital high protein 53 mL an hour, which is goal. Her arterial blood gases are stable. Her vital signs are stable. Her medications, labs, and problem list reviewed. Additional recommendations and suggestions are forthcoming. We will continue to follow. Prognosis is guarded Time with Patient: Greater than 30
[2020-11-19] MEDS: MORPHINE SULFATE 2 MG/ML SYRINGE IVP PRN ×2 (10:18→16:41)
--- NOTE | 2020-11-19 11:23 | P.PN ---
Subjective Progress Note Date: 11/12/20 CHIEF COMPLAINT: Shortness of breath HISTORY OF PRESENT ILLNESS: Patient seen and examined with Dr. Herrera. Patient remains in the ICU and is on mechanical ventilation. She is status post tracheostomy and PEG tube placement on 11/13/[address] Herrera. Patient is tolerating tube feedings. She did have a small air leak from her tracheostomy. Respiratory added air to the bulb. Afebrile. WBC 8.4 PHYSICAL EXAM: VITAL SIGNS: Reviewed. GENERAL: Well-developed in no acute distress. HEENT: No sclera icterus. Extraocular movements grossly intact. Moist buccal mucosa. Head is atraumatic, normocephalic. Tracheostomy site clean dry and intact ABDOMEN: Soft. Nondistended. Nontender. PEG tube site clean dry and intact NEUROLOGIC: Alert and oriented. Cranial nerves II through XII grossly intact. ASSESSMENT: 1. Acute on chronic hypoxic respiratory failure status post tracheostomy pl acement 2. Severe protein calorie nutrition status post PEG tube placement 3. Covid 19 pneumonia PLAN: -Continue supportive care -Continue ICU management -Continue PEG tube feedings Physician Assistant [employer] note has been reviewed by physician. Signing provider agrees with the documented findings, assessment, and plan of care. Objective - Vital Signs Vital signs: Vital Signs Temp 99.5 F 11/19/20 08:00 Pulse 84 11/19/20 10:00 Resp 34 H 11/19/20 10:00 BP 109/58 11/19/20 10:00 Pulse Ox 95 11/19/20 10:00 Intake & Output 11/18/20 11/19/20 11/19/20 18:59 06:59 18:59 Intake Total 1186 966 322 Output Total 905 430 245 Balance 281 536 77 Weight 87.543 kg 87.6 kg Intake: IV 240 240 80 0.9NS 240 240 80 Intake, IV Titration 250 Amount Voriconazole 350 mg In 250 Sodium Chloride 0.9% 250 ml @ 125 mls/hr IVPB Q12HR [facility] Rx#:[id number] Tube Feeding 606 636 212 Other 90 90 30 Output: Urine 905 430 245 Other: Voiding Method Indwelling Catheter Indwelling Catheter Indwelling Catheter ABP, PAP, CO, CI - Last Documented Arterial Blood Pressure 79/65 - Labs CBC & Chem 7: 11/19/20 03:26 11/19/20 03:26 Labs: Abnormal Lab Results - Last 24 Hours (Table) 11/18/20 11/18/20 11/18/20 Range/Units 11:52 16:56 20:34 RBC (3.80-5.40) m/uL Hgb (11.4-16.0) gm/dL Hct (34.0-46.0) % RDW (11.5-15.5) % ABG pCO2 (35-45) mmHg ABG pO2 (83-108) mmHg ABG HCO3 (21-25) mmol/L ABG Total CO2 (19-24) mmol/L ABG O2 Saturation (94-97) % Chloride (98-107) mmol/L BUN (7-17) mg/dL Glucose (74-99) mg/dL POC Glucose (mg/dL) 120 H 134 H 129 H (75-99) mg/dL Calcium (8.4-10.2) mg/dL 11/19/20 11/19/20 11/19/20 Range/Units 03:26 03:26 05:18 RBC 2.82 L (3.80-5.40) m/uL Hgb 8.4 L (11.4-16.0) gm/dL Hct 25.8 L (34.0-46.0) % RDW 16.4 H (11.5-15.5) % ABG pCO2 46 H (35-45) mmHg ABG pO2 150 H (83-108) mmHg ABG HCO3 28 H (21-25) mmol/L ABG Total CO2 30 H (19-24) mmol/L ABG O2 Saturation 99.9 H (94-97) % Chloride 108 H (98-107) mmol/L BUN 19 H (7-17) mg/dL Glucose 108 H (74-99) mg/dL POC Glucose (mg/dL) (75-99) mg/dL Calcium 8.3 L (8.4-10.2) mg/dL 11/19/20 Range/Units 08:57 RBC (3.80-5.40) m/uL Hgb (11.4-16.0) gm/dL Hct (34.0-46.0) % RDW (11.5-15.5) % ABG pCO2 (35-45) mmHg ABG pO2 (83-108) mmHg ABG HCO3 (21-25) mmol/L ABG Total CO2 (19-24) mmol/L ABG O2 Saturation (94-97) % Chloride (98-107) mmol/L BUN (7-17) mg/dL Glucose (74-99) mg/dL POC Glucose (mg/dL) 139 H (75-99) mg/dL Calcium (8.4-10.2) mg/dL
[2020-11-19 12:24] LABS: Glucose,Whole Blood 154 mg/dL (75-99)
[2020-11-19 16:24] LABS: Glucose,Whole Blood 159 mg/dL (75-99)
--- NOTE | 2020-11-19 21:10 | XR ---
EXAMINATION TYPE: XR chest 1V portable DATE OF EXAM: 11/19/2020 COMPARISON: Earlier same day. HISTORY: Follow-up shortness of breath. Covid positive. TECHNIQUE: Single frontal view of the chest is obtained. FINDINGS: Tracheostomy tube and left PICC remain in place. There is redemonstration of bilateral dif fuse interstitial opacities, slightly more pronounced in the left lung. No significant effusion, or p neumothorax seen. The cardiac silhouette size is within normal limits. The osseous structures are intact. IMPRESSION: Bilateral diffuse interstitial opacities, slightly more pronounced in the left lung.
--- NOTE | 2020-11-19 22:15 | P.PN ---
Progress Note - Text Progress Note Date: 11/19/20 Chief Complaint: Short of breath History of presenting complaint: This is a 60-year-old patient who follows with Yajaira Barber. Chronic stable medical conditions include diabetes, fibromyalgia, GERD, hypertension, hyperlipidemia, osteoarthritis, obstructive sleep apnea. She is on 3 L of nasal cannula home. Night has been getting it more often lately. Diabetic peripheral neuropathy, obstructive sleep apnea does not use CPAP, chronic kidney disease, arthritis in multiple joints, bipolar schizoaffective disorder. Patient presents of 1 week of increasing shortness of breath. Cough. Slight phlegm. Has had fever for 2 days. Decrease appetite some headaches no loss of taste or smell. No diarrhea. Body aches all over. Patient tested for COVID 19 in the ER. Still somewhat tired rundown. Admitted with bilateral COVID 19 pneumonia, acute hypoxic respiratory failure, acute COPD exacerbation. Patient was started on dexamethasone, Lovenox, Remdesivir, vitamin C vitamin D and zinc. Pulmonary was consulted. Patient has been requiring BiPAP. On October 28 because of increasing oxygen requirement patient is moved to the ICU. Patient was started on IV cefepime and vancomycin. Given convalescent plasma on October 30. PICC line placed-started on TPN and lipids. intubated November 06. November 13-PEG tube and tracheostomy tube done. Sputum grew Aspergillus fumigatus. Voriconazole was added. Today-ICU: Overnight patient had been stable. On the ventilator. Getting a tube feeding. Late in the evening patient went into some respiratory distress. About to 300s of bloody secretions were obtained by aspiration. Patient had to be bagged. Dr. Agee was contacted. Currently on FiO2 of 100% and a PEEP of 13. Pulse ox 90%. Patient does follow commands Review of systems: Difficult to obtain Active Medications Acetaminophen (Acetaminophen Tab 325 Mg Tab) 650 mg PO Q6HR PRN PRN Reason: Fever and/ or Pain Last Admin: 11/19/20 14:50 Dose: 650 mg Documented by: Albuterol Sulfate (Albuterol Hfa Inhaler) 4 puff INHALATION Q4H RAE Last Admin: 11/19/20 20:43 Dose: 4 puff Documented by: Aripiprazole (Aripiprazole 10 Mg Tab) 10 mg PO HS RAE Last Admin: 11/18/20 20:24 Dose: 10 mg Documented by: Aripiprazole (Aripiprazole 20 Mg Tab) 20 mg PO DAILY [facility] Last Admin: 11/19/20 08:48 Dose: 20 mg Documented by: Artificial Tears (Artificial Tears-Hypromellose Drops 15 Ml Btl) 1 drops BOTH EYES QID PRN PRN Reason: Dry Eye(s) Last Admin: 10/29/20 18:47 Dose: 1 drops Documented by: Ascorbic Acid (Ascorbic Acid 500 Mg Tab) 500 mg PO DAILY [facility] Last Admin: 11/19/20 08:47 Dose: 500 mg Documented by: Atorvastatin Calcium (Atorvastatin 20 Mg Tab) 20 mg PO DAILY [facility] Last Admin: 11/19/20 08:48 Dose: 20 mg Documented by: Chlorhexidine Gluconate (Chlorhexidine Gluconate 15 Ml Cup) 15 ml MUCOUS MEM BID [facility] Last Admin: 11/19/20 08:46 Dose: 15 ml Documented by: Cholecalciferol (Cholecalciferol 25 Mcg (1000 Iu) Tablet) 100 mcg PO DAILY [facility] Last Admin: 11/19/20 08:48 Dose: 100 mcg Documented by: Clonazepam (Clonazepam 0.5 Mg Tab) 0.5 mg PO HS [facility] Last Admin: 11/18/20 20:00 Dose: 0.5 mg Documented by: Enoxaparin Sodium (Enoxaparin 40 Mg/0.4 Ml Syringe) 40 mg SQ DAILY [facility] Last Admin: 11/19/20 08:46 Dose: 40 mg Documented by: Famotidine (Famotidine 20 Mg Tab) 20 mg PO BID [facility] Last Admin: 11/19/20 08:47 Dose: 20 mg Documented by: Voriconazole 350 mg/ Sodium (Chloride) 250 mls @ 125 mls/hr IVPB Q12HR [facility] Last Admin: 11/19/20 09:07 Dose: 125 mls/hr Documented by: Propofol 1,000 mg/ IV Solution 100 mls @ 0 mls/hr IV .Q0M [facility]; Protocol Cisatracurium Besylate 200 mg/ (Sodium Chloride) 200 mls @ 10.512 mls/hr IV .Q19H2M [facility]; Protocol Insulin Aspart (Insulin Aspart (Novolog) 100 Unit/Ml Vial) 0 unit SQ Q4H [facility]; Protocol Last Admin: 11/19/20 16:40 Dose: 2 unit Documented by: Insulin Detemir (Insulin Detemir (Levemir) 100 Unit/Ml Syr) 26 unit SQ HS [facility] Last Admin: 11/18/20 20:44 Dose: 26 unit Documented by: Lamotrigine (Lamotrigine 100 Mg Tab) 150 mg PO BID [facility] Last Admin: 11/19/20 08:49 Dose: 150 mg Documented by: Lidocaine (Lidocaine 5% Patch) 1 patch TOPICAL DAILY [facility] Last Admin: 11/19/20 09:08 Dose: 1 patch Documented by: Losartan Potassium (Losartan 50 Mg Tab) 50 mg PO DAILY [facility] Last Admin: 11/19/20 09:31 Dose: Not Given Documented by: Meclizine HCl (Meclizine 25 Mg Tab) 25 mg PO Q8H PRN PRN Reason: Nausea And Vomiting Miscellaneous Information (Magnesium Replacement Protocol 1 Each Mis) 1 each MISCELLANE DAILY PRN; Protocol PRN Reason: Per Protocol Miscellaneous Information (Potassium Replacement Protocol 1 Each [facility]) 1 each MISCELLANE DAILY PRN; Protocol PRN Reason: Per Protocol Morphine Sulfate (Morphine Sulfate 2 Mg/Ml Syringe) 2 mg IVP Q4H PRN PRN Reason: Pain/Discomfort Last Admin: 11/19/20 16:41 Dose: 2 mg Documented by: Oxcarbazepine (Oxcarbazepine 150 Mg Tab) 150 mg PO BID [facility] Last Admin: 11/19/20 08:50 Dose: 150 mg Documented by: Prednisone (Prednisone 10 Mg Tab) 10 mg PO DAILY [facility] Last Admin: 11/19/20 09:07 Dose: 10 mg Documented by: Pregabalin (Pregabalin 100 Mg Cap) 100 mg PO BID [facility] Last Admin: 11/19/20 09:07 Dose: 100 mg Documented by: Sumatriptan Succinate (Sumatriptan Succinate 50 Mg Tab) 100 mg PO BID PRN PRN Reason: Migraine Headache Topiramate (Topiramate 25 Mg Tab) 50 mg PO BID [facility] Last Admin: 11/19/20 08:47 Dose: 50 mg Documented by: Zinc Sulfate (Zinc Sulfate 220 Mg Cap) 220 mg PO DAILY [facility] Last Admin: 11/19/20 09:04 Dose: 220 mg Documented by: Past medical history to include: COPD, diabetes, fibromyalgia, GERD, hyperlipidemia, hypertension, obstructive sleep apnea does not use CPAP, home oxygen 3 L normal. Night, diabetic peripheral neuropathy, chronic kidney disease, bipolar depression, schizoaffective disorder. Social history: Lives with her daughter. Disabled. Home oxygen. Smoked from 9065 through 2009. In the past used several street drugs but not so since 1989. Physical examination: VITAL SIGNS: 98.9, 67, 35, 96/64, 100% on the vent GENERAL: Laying in bed, tracheostomy, awake PSYCHIATRY: Answering questions slowly NEUROLOGICAL: Following commands, eyes open Physical exam as per pulmonary and nursing INVESTIGATIONS, reviewed in the clinical context: November 19: WBC 5.7 hemoglobin 8.4 potassium 3.7 creatinine 0.59 November 18: White count 6.2 hemoglobin 8.6 potassium 3.7 creatinine 0.57 November 17:WBC 6.3 hemoglobin 8.3 potassium 3.6 creatinine 0.64 November 08: WBC 40.4 hemoglobin 11.4 d-dimer 1.9 potassium 4.6 creatinine 0.71 CRP 83 November 07: WBC 13.9 hemoglobin 11.7 platelets 270 ABG-pH 7.3 pCO2 64 pO2 131 MRSA nasal screen-negative. November 04: D-dimer 4.4 CRP 40.1 pro-calcitonin 0.11 October 28: D-dimer 0.78 CRP 169 pro-calcitonin 0.38 Chest x-ray from yesterday-scattered infiltrates Admission labs: White count 7.2 hemoglobin 15.1 decreased lymphocytes d-dimer 0.85 potassium 3.3 creatinine 0.90 glucose 205 EST 106 ALT 103 CRP 37.2 procalcitonin 0.27 Influenza type A, type B both not detected. RSV P/Cr-not detected. Coronavirus [PCR]-detected EKG tracing personally reviewed by me-normal sinus rhythm some slight ST segment changes Chest x-ray film personally reviewed by me-bilateral basilar infiltrates Assessment and plan: -Bilateral COVID 19 pneumonia causing sepsis. received Remdesivir. Convalescent plasma. colchicine. Received dexamethasone - Solu-Medrol , Decadron,-now on prednisone. and Lovenox -secondary bacterial pneumonia infection with IV cefepime-discontinued on November 16, [ IV vancomycin.. MRSA nasal screen negative. vancomycin discontinued]. Sputum also positive for Aspergillus fumigatus. On voriconazole -Acute COPD exacerbation in an [id number] to respond -acute hypoxic respiratory failure, requiring BiPAP-; intubated November 06. Slow to respond on the ventilator, - tracheostomy.FiO2 50% -Diabetes mellitus 2, uncontrolled with hyperglycemia from steroids. Levemir dose being adjusted -Chronic fibromyalgia -GERD, on Pepcid -Essential hypertension, on Cozaar -Hyperlipidemia, on Lipitor -Obstructive sleep apnea does not use CPAP -Diabetic peripheral neuropathy -Primary osteoarthritis of multiple joint -TPN and lipids -taken off -continue tube feeding Given that patient's had bloody aspiration of the lungs if maybe she had a GI bleed and aspirated the same. We'll put the patient on IV Protonix.
--- NOTE | 2020-11-19 22:33 | PN ---
PROGRESS NOTE DATE OF SERVICE: 11/19/2020 REASON FOR FOLLOWUP: Aspergillosis pneumonia. INTERVAL HISTORY: The patient is currently afebrile. The patient is breathing comfortably. The patient is currently on a trach collar. Denies having any chest pain. Cough but no sputum. No abdominal pain or diarrhea has been reported by the nursing staff. PHYSICAL EXAMINATION: Blood pressure 109/59, pulse of 69, temperature 98. General description is a middle-aged female lying in bed in no distress. RESPIRATORY SYSTEM: Unlabored breathing with decreased breath sounds at the base. No wheeze. HEART: S1, S2. Regular rate and rhythm. ABDOMEN: Soft. No tenderness. LABS: Hemoglobin 8.4, white count of 5.7. BUN of 19, creatinine 0.59. DIAGNOSTIC IMPRESSION AND PLAN: Patient with pneumonia in this patient who had admission with COVID-19, subsequent respiratory failure, extensive exposures to steroids, now sputum with aspergillosis with bilateral consolidation concerning for possible aspergillus pneumonia. The patient is covered with Vfend; that will be continued while monitoring clinical course closely. Continue with supportive care. MMODL / IJN: [id number] /
[2020-11-19 22:48] LABS: Glucose,Whole Blood 117 mg/dL (75-99)
[2020-11-19] MEDS: ARIPiprazole 10 MG TAB PO SCH (22:49)
[2020-11-19] MEDS: clonazePAM 0.5 MG TAB PO SCH (22:49)
[2020-11-19] MEDS: CISATRACURIUM 200 MG in SODIUM CHLORIDE 0.9% 180 ML IV SCH (22:51)
[2020-11-19] MEDS: PANTOPRAZOLE 40 MG/10 ML VIAL IVP SCH (22:56)
[2020-11-19] MEDS: INSULIN DETEMIR (LEVEMIR) 100 UNIT/ML SYR SQ SCH (22:58)
[2020-11-20 00:07] LABS: ABG Base Excess 2.3 mmol/L; ABG HCO3 28 mmol/L (21-25); ABG Oxygen Saturation 93.8 % (94-97); ABG PCO2 54 mmHg (35-45); ABG PH 7.33 (7.35-7.45); ABG PO2 68 mmHg (83-108); ABG TCO2 30 mmol/L (19-24); Allen Test Performed? Yes
[2020-11-20 01:17] LABS: Glucose,Whole Blood 134 mg/dL (75-99)
[2020-11-20] MEDS: INSULIN ASPART (NovoLOG) 100 UNIT/ML VIAL SQ SCH ×6 (01:29→20:08)
[2020-11-20] MEDS: ALBUTEROL HFA INHALER INHALATION SCH ×6 (03:27→23:49)
[2020-11-20 04:05] LABS: Anisocytosis Slight; Basophils % (A) 0 %; Eosinophils # (A) 0.2 k/uL (0-0.7); Eosinophils % (A) 3 %; HCT 29.1 % (34.0-46.0); HGB 9.1 gm/dL (11.4-16.0); Hypochromasia Moderate; Lymphocytes % (A) 10 %; MCHC 31.2 g/dL (31.0-37.0); MCV 93.1 fL (80.0-100.0); Mean Platelet Volume 7.7; Monocytes # (A) 0.5 k/uL (0-1.0); Monocytes % (A) 6 %; Neutrophils # (A) 7.5 k/uL (1.3-7.7); Neutrophils % (A) 80 %; Platelet Count 299 k/uL (150-450); RBC 3.13 m/uL (3.80-5.40); RDW 16.2 % (11.5-15.5); WBC 9.5 k/uL (3.8-10.6)
[2020-11-20 04:05] LABS: Glucose,Whole Blood 159 mg/dL (75-99)
[2020-11-20 04:24] LABS: ALT 138 U/L (4-34); AST 101 U/L (14-36); African American GFR (CKD) >90 (>60 ml/min/1.73 sqM); Albumin 3.2 g/dL (3.5-5.0); Alkaline Phosphatase 139 U/L (38-126); Anion Gap 5 mmol/L; Blood Urea Nitrogen 16 mg/dL (7-17); Calcium 8.6 mg/dL (8.4-10.2); Carbon Dioxide 31 mmol/L (22-30); Chloride 108 mmol/L (98-107); Glucose 153 mg/dL (74-99); Non-African American GFR(CKD) >90 (>60 ml/min/1.73 sqM); Potassium 4.2 mmol/L (3.5-5.1); Sodium 144 mmol/L (137-145); Total Bilirubin 0.4 mg/dL (0.2-1.3); Total Protein 5.9 g/dL (6.3-8.2)
[2020-11-20 05:19] LABS: ABG Base Excess 3.2 mmol/L; ABG HCO3 30 mmol/L (21-25); ABG Oxygen Saturation 88.1 % (94-97); ABG PCO2 58 mmHg (35-45); ABG PH 7.31 (7.35-7.45); ABG TCO2 31 mmol/L (19-24); Allen Test Performed? Yes
[2020-11-20 05:21] LABS: ABG PO2 55 mmHg (83-108)
[2020-11-20 07:40] LABS: Glucose,Whole Blood 150 mg/dL (75-99)
--- NOTE | 2020-11-20 07:49 | XR ---
EXAMINATION TYPE: XR chest 1V portable DATE OF EXAM: 11/20/2020 COMPARISON: 11/19/2020 INDICATION: ICU management, previous abnormal TECHNIQUE: Single frontal view of the chest is obtained. FINDINGS: The heart size is normal. The pulmonary vasculature is prominent. There is diffuse increased lung markings greater on the right some slight improvement of the left mid lung infiltrate may be present. Right basilar infiltrate may be increasing. Tracheostomy tube is in the midline. The tip appears to be within the proximal trachea. IMPRESSION: 1. There may be some slight improvement of the left mid lung infiltrate. Diffuse infiltrate through t he remaining portions of the lung appear stable. This may be increasing at the right base.
[2020-11-20] MEDS: VORICONAZOLE IVPB SCH ×2 (09:22→20:08)
[2020-11-20] MEDS: ARTIFICIAL TEARS-HYPROMELLOSE DROPS 15 ML BTL BOTH EYES SCH ×4 (09:22→20:07)
[2020-11-20] MEDS: SODIUM CHLORIDE 0.9% IVPB SCH ×2 (09:22→20:08)
[2020-11-20] MEDS: CHLORHEXIDINE GLUCONATE 15 ML CUP MUCOUS MEM SCH ×2 (09:27→20:08)
[2020-11-20] MEDS: PANTOPRAZOLE 40 MG/10 ML VIAL IVP SCH ×2 (09:27→20:08)
[2020-11-20] MEDS: ENOXAPARIN 40 MG/0.4 ML SYRINGE SQ SCH (10:15)
[2020-11-20] MEDS: ZINC SULFATE 220 MG CAP PO SCH (10:18)
[2020-11-20] MEDS: lamoTRIgine 100 MG TAB PO SCH ×2 (10:18→20:07)
[2020-11-20] MEDS: CHOLECALCIFEROL 25 MCG (1000 IU) TABLET PO SCH (10:18)
[2020-11-20] MEDS: ASCORBIC ACID 500 MG TAB PO SCH (10:18)
[2020-11-20] MEDS: predniSONE 10 MG TAB PO SCH (10:19)
[2020-11-20] MEDS: LOSARTAN 50 MG TAB PO SCH (10:19)
[2020-11-20] MEDS: TOPIRAMATE 25 MG TAB PO SCH ×2 (10:24→20:08)
[2020-11-20] MEDS: OXcarbazepine 150 MG TAB PO SCH ×2 (10:25→20:08)
[2020-11-20 11:01] VITALS: BMI 37.0
[2020-11-20] MEDS: LIDOCAINE 5% PATCH TOPICAL SCH (11:21)
--- NOTE | 2020-11-20 11:24 | P.PN ---
Subjective Progress Note Date: 11/20/20 Principal diagnosis: Shortness of breath. On 10/22/2020 patient seen in follow-up, she is awake and alert, she remains on 6 L of oxygen her pulse ox is 90-93%, she is breathing comfortably, although still having fever spikes, with a T-max of 101.8F this morning, today's day 2 o f Remdesivir, we added colchicine, she is on oral Decadron 6 mg daily, she is on prophylactic dose of Lovenox, in addition to vitamins. Today's labs have been reviewed, showing d-dimer of 0.85, CRP is down to 4.6, associated LDH value from today, her pro-calcitonin level was 0.27, her influenza and RSV screen were negative. On 10/23/2020 patient seen in follow-up on medical floor, she is awake and alert, oriented 3, she is wheezy, has a congested cough, she is currently on 2 L of oxygen her pulse ox is between 87-93%, she still having some low-grade fevers, today's chest x-ray showing patchy perihilar and basilar infiltrates without significant change. Patient remains on Remdesivir, today is day 3 of treatment, in addition to Decadron, prophylactic doses of Lovenox in her d-dimer remains low at 0.62, in addition to vitamins and colchicine. Her inflammatory markers are coming down, her procalcitonin level was not elevated to 0.27 On 10/26/2019 patient seen in follow-up on medical floor, she is currently on high flow oxygen per year flow at 50 L and FiO2 of 82%, and her pulse ox is 91%, she states his breathing comfortably, overall her breathing is better, she is feeling better, she's had that no fever or chills, hemodynamically stable, no chest discomfort. 0.9 normal saline is infusing at 20 ML per hour, chest x-ray today showed coarse perihilar and basilar infiltrates unchanged from prior study. She finished her Remdesivir treatment yesterday, she remains on bronchodilators, she remains on dexamethasone 6 mg daily, subcu Lovenox 40 mg twice daily, oral Pepcid, vitamin C D and zinc. Today's labs have been reviewed, CBC is within normal limits, d-dimer 0.49, renal profile is unremarkable, CO2 was mildly elevated at 32, the rest of electrolytes were within normal limits, LDH is 346, and CRP is 2.3. No Altered mentation, patient is tolerating oral diet, no nausea vomiting no abdominal pain On 10/27/2020 patient seen in follow-up on medical floor. Patient remains on high flow oxygen per Airvo with 50 L and FiO2 of 82%, and her pulse ox has been 87-89%, patient feels more dyspneic on today's exam, she did have a fever spike earlier today in the morning however it is not recorded. She is coughing, however her cough is dry, nonproductive. No chest pain. Today's chest x-ray shows patchy perihilar basilar infiltrates noted to be slightly improved. Tory ent remains on empiric antibiotics in the form of Rocephin, she is on 6 mg oral dose of Decadron on a daily basis, she is on Lovenox 40 mg twice a day, patient to vitamin C D and zinc. Her last d-dimer yesterday was 0.49, today's labs have been reviewed. Pro-calcitonin is 0.22 on today's labs, inflammatory markers are improving. Progress note dated 10/28/2020. 60-year-old female with a history of severe hypoxemic respiratory failure, secondary to COVID 19 pneumonia. Today, the patient was on AIRVO at 60 L/m, and 90% FiO2, as well as a partial rebreather mask. Her saturations were only in the mid to high 80s and for that reason, the patient was transferred to the intensive care unit for further monitoring and treatment. The patient really has not shown much improvement over the last couple of days. Her chest x-ray actually looked a bit worse to us, but we did give her some Lasix just in case some of what we were seeing related to fluid overload. White count was 5.72, hemoglobin 12.9, hematocrit 39.8, and platelet count 224,000. Sodium was 134, potassium 4, chloride 94, CO2 31, anion gap 9, BUN 15, and creatinine 0.8. Vital signs showed a blood pressure of 87/45, heart rate 79, respiratory rate 24, and a normal temperature. Medications were reviewed and were appropriate. Progress note dated 10/30/2020 60-year-old female with a history of severe hypoxemic respiratory failure. The patient has a history of COVID 19 pneumonia. Currently, the patient is on BiPAP with an IPAP of 12 and EPAP of 6, and 100%. Yesterday, the nurse had a conversation with the patient and before the end that shift, the patient had decided to be a DO NOT RESUSCITATE. Sometime after that, the patient changed her mind. In addition to BiPAP, the patient is on saline at 10 mL an hour. The patient was admitted on 10/21/2020. We did have a long discussion again today about CODE STATUS. The patient did agree to go on life support if necessary. She stated though that if it appeared that she was not going to improve, that she would want to come off of life support and be made comfortable. The patient would not agree to tracheostomy or PEG tube placement. She has not eaten anyt warner she's been on the BiPAP 17/04. Today, we'll place a PICC line, and start her on total parenteral nutrition. Today's temperature is 97.9, heart rate 95, respiratory rate 17, blood pressure 108/59, and saturations between 85-90%. White count is 5.7, hemoglobin 13.4, hematocrit 40.3, and platelet count 268,000. D-dimer is 0.92. Sodium 134, potassium 3.8, chloride 96, CO2 30, anion gap 8, BUN 24, and creatinine 0.8. LDH is 905, C-reactive protein is 202. Chest x-ray stable to minimally improved. Progress note dated 10/31/2020. 60-year-old female, with a history of severe hypoxemic respiratory failure, secondary to COVID 19 pneumonia. The patient remains about the same. The patient is currently on BiPAP, with an IPAP of 12 pending EPAP 6. The patient's FiO2 is set at 100%. She's getting saline at 20 mL an hour and TPN at 30 mL/h with a goal of 60. She has a PICC line in place. The patient did receive, convalescent plasma yesterday. We have talked to her numerous times about CODE STATUS. The patient is currently a full code and would agree to at least short- term intubation and mechanical ventilation. She would not agree to tracheostomy or PEG tube placement. Currently, her white count is 7.5, hemoglobin 13.5, hematocrit 40.5, platelet count 283,000. The patient's d-dimer is 1.03. Sodium 134, potassium 3.8, chlorides 99, CO2 27, anion gap 8, BUN 23, and creatinine 0.67. Chest x-ray is stable to slightly improved. Progress note dated 11/01/2020. 60-year-old female, with a history of severe hypoxemic respiratory failure, secondary to COVID 19 pneumonia. The patient remains in the intensive care unit. She is in room 251. She is on BiPAP with settings of IPAP 12 and EPAP 6, and 100%. She's getting TPN at 60 mL and saline at KVO. The patient's x-ray continues to show bilateral diffuse patchy infiltrates. Today's sodium is 136, potassium 4.1, chloride 101, CO2 30, anion gap 5, BUN 23, and creatinine 0.65. LDH is 8 O2. C-reactive protein is 33.4. Chest x-ray shows bilateral patchy infiltrates, which are unchanged. The patient remains on appropriate medications. On 2020 patient seen in follow-up in the intensive care unit, she is cu rrently on VC plus mode of ventilation with a rate of 34, target volume of 400, FiO2 of 50% and PEEP of 14, inspiratory time is 0.9. This morning blood gases revealed a pO2 of 74, pCO2 42, and pH 7.45. She is currently lightly sedated on Diprivan at 20 mics per kilo per minute, 0.9 normal saline is at 20 ML per hour, patient is receiving tube feedings, she is on vital high protein at 27 with a g oal of 27 and standard water flushes. Patient is status post tracheostomy and PEG tube placement on 11/13/[address] Tidwell, she is in sinus mechanism, she has not required any vasopressors. Her last chest x-ray was done on the showing coarse infiltrates throughout both lungs with more consolidative processes at the right lung base, improving basilar aeration was noted. This morning's labs have been reviewed, white blood cell count of 6.0, hemoglobin is 8.4, sodium is 141, potassium 3.5, chloride was 108, CO2 is 29, BUN is 25, creatinine 0.7. AST was 57, ALT was 63, alkaline phosphatase was 79. Cultures have been reviewed, bloody urine have been negative, latest sputum culture from 11/13/2020 revealed Aspergillus fumigatus. ID service is following, patient is currently on cefepime. Patient remains on 6 mg of dexamethasone IV daily, she is on prophylactic dose of Lovenox 40 mg daily. Patient has been producing 30- 50 ML of urine on the regular basis. Patient does follow commands and moves all 4 extremities. No new chest x-ray today, patient was rechecked for COVID 19 on 11/11/2020 and was found to be positive Progress note dated 11/17/2020. 60-year-old female seen today in the intensive care unit. The patient has been in the hospital for 27 days. She was initially admitted with COVID 19 pneumonia and acute and severe hypoxemic respiratory failure. She has a history of hypertension, type 2 diabetes, hyperlipidemia, COPD, fibromyalgia, sleep apnea syndrome, and chronic hypoxemic respiratory failure. For many days, the patient was not intubated. Finally, the patient did get intubated, and ended up with a tracheostomy and feeding tube. Yesterday, the patient was thinking about comfort measures but apparently she has changed her mind and would like to continue to try to get better. The goal will be to try to get her to a long- term acute care facility. She currently remains on the ventilator, on the pressure regulated volume control modality also known as VC plus. Her respiratory rate is 34, her targeted tidal volume 400, her inspiratory time is 0.9 seconds, her FiO2 is 50%, and her PEEP is 14. Arterial blood gases show a PaO2 of 78, PaCO2 of 42, and a pH is 7.45. Currently, she is on saline at KVO, propofol at 15 mcg/kg/m, and vital high protein at 43, with a goal of 43 mL an hour. The patient's Decadron will be discontinued in favor of prednisone. She's been on steroids for a number of weeks. We will eventually wean the pr ednisone completely off. Her chest x-ray continues to show diffuse bilateral infiltrates. Progress note dated 11/18/2020. 60-year-old female, again seen here in the intensive care unit. She is in room 251. She was initially admitted a number of days back, maybe almost 30, with a diagnosis of COVID 19 pneumonia, with acute hypoxemic respiratory failure. The patient eventually was intubated, and because of failure to wean, had a tracheostomy and PEG tube placed. Currently, the patient remains on the VC plus mode of ventilation. Her targeted tidal volume is 400 mL, inspiratory time, 0.9 seconds, rate is 34, FiO2 50%, and PEEP is 14, to be reduced down to 10 cm water. Arterial blood gases show a PaO2 of 89, PaCO2 of 43, and a pH of 7.43. The blood gases show a relative hypoxemia, and normal acid base status. The patient's getting saline at 20 mL an hour, and propofol has been turned off. She is receiving vital high protein at 43, with a goal of 43 mL an hour. The plan is to try to get this patient off to long-term acute care. We'll make sure that they are consulted. We will get her PEEP down to 8 cm of water. Currently, she is off propofol. Laboratory data today includes a white count of 6.2, hemoglobin 8.6, hematocrit 26.0, and platelet count 200,000. Sodium 143, potassium 3.7, chlorides 109, CO2 29, anion gap 5, BUN 20, and creatinine 0.57. Chest x-ray continues to show bilateral infiltrates. Progress note dated 11/19/2020. 60-year-old female, again seen in the intensive care unit, room 251. She's been in the hospital for nearly a month. The patient was admitted on 10/21/2020. Her initial admission diagnosis was that of acute hypoxemic respiratory failure, secondary to COVID 19 pneumonia. The patient remains on mechanical ventilator. She is on the pressure regulated volume control modality or VC plus. With a rate of 34, a targeted tidal volume of 400, inspiratory time of 0.9 seconds, FiO2 50%, and a PEEP of 10. Gen. blood gases show a PaO2 of 150, PaCO2 of 46, and a pH is 7.39. The PEEP is reduced from 10 down to a PEEP of 5. Currently, she is on saline at KVO, propofol, which is currently off, and vital high protein, 53 mL an hour, which is goal. She had uneventful night according to the nurse. In my opinion, she is ready to be transferred to a long-term acute care facility. Currently, her white count is 5.7, hemoglobin 8.4, hematocrit 25.8, and a platelet count which is normal. Sodium is 143, potassium 3.7, chlorides 108, CO2 29, anion gap 6, BUN 19, creatinine 0.59. Microbiology is currently still negative, and chest x-ray shows diffuse bilateral infiltrates. Progress note dated 11/20/2020. 60-year-old female, again seen in the intensive care unit, and room 251. She's been in the hospital now for 30 days. She was admitted back on 10/21/2020. Her initial diagnosis was that of acute hypoxemic respiratory failure, secondary to COVID 19 pneumonia. The patient remains on mechanical ventilator. Last night, she developed worsening respiratory status. I was called numerous times by the nurse. Initially, they were bagging the patient because every time they put her back on the ventilator, she desaturated. Finally, I was able to sedate the patient appropriately, and paralyzed the patient with Nimbex. At that point, she was a bit more stable. We did have a conversation with the daughter Renetta today. They have made the patient a DO NOT RESUSCITATE. They're planning to withdraw life support on Monday. Currently, she is on the volume assist control mode, rate 34, tidal volume 400, FiO2 100%, and PEEP is now 12. On the same settings, but a PEEP of 8, PaO2 was 55, PaCO2 was 58, and the pH was 7.31. The patient is on saline at KVO, propofol at 30 mcg/kg/m, and Nimbex, at 2 mcg/kg/m, with [id number] monitoring. In addition, the patient is getting tube feeds, with vital high protein, 51 mL an hour, which is goal. White count is 9.5, hemoglobin 9.1, hematocrit 29.1, and platelet count 299,000. Sodium is 144, potassium 4.2, chlorides 108, CO2 31, anion gap 5, BUN 16, and creatinine 0.52. Microbiology is essentially negative save for Aspergillus fumigated send a sputum from November 13. Chest x-ray continues to show diffuse bilateral infiltrates, with some worsening in the left lung. Objective - Vital Signs Vital signs: Vital Signs Temp 98.6 F 11/20/20 04:00 Pulse 78 11/20/20 10:00 Resp 34 H 11/20/20 10:00 BP 106/67 11/20/20 10:00 Pulse Ox 100 11/20/20 10:00 Intake & Output 11/19/20 11/20/20 11/20/20 18:59 06:59 18:59 Intake Total 1149 783.794 159.355 Output Total 780 845 95 Balance 369 -61.206 64.355 Weight 88.8 kg 88.8 kg Intake: IV 240 260 60 0.9NS 240 260 60 Intake, IV Titration 250 187.794 48.355 Amount Cisatracurium 200 mg In 75.774 Sodium Chloride 0.9% 180 ml @ 2 MCG/KG/MIN 10.512 mls/hr IV .Q19H2M [facility] Rx# :[id number] Voriconazole 350 mg In 250 Sodium Chloride 0.9% 250 ml @ 125 mls/hr IVPB Q12HR R[facility] Rx#:[id number] propofoL 500 mg In Empty 112.020 48.355 Bag 1 bag @ Titrate IV . Q0M R[facility] Rx#:[id number] Tube Feeding 569 306 51 Other 90 30 Output: Urine 780 845 95 Other: Voiding Method Indwelling Catheter Indwelling Catheter Indwelling Catheter ABP, PAP, CO, CI - Last Documented Arterial Blood Pressure 79/65 - Exam Currently ventilated, sedated and paralyzed, with a midline tracheostomy tube. HEENT examination is grossly unremarkable. Mucous membranes are moist. Neck supple. Full range of motion. No adenopathy thyromegaly or neck vein distention. Midline tracheostomy tube noted. Cardiovascular examination reveals regular rhythm rate. S1-S2 normal. No S3 or S4. No discernible murmur noted. Heart sounds are distant and heart rate is 80 bpm. Lungs reveal coarse bilateral rhonchi, and a few crackles. Breath sounds equal bilaterally but diminished throughout. No wheezes. . Abdomen soft bowel sounds are heard. No masses or tenderness. A PEG tube is noted. Extremities are intact. No cyanosis clubbing or edema. Skin is without rash or lesion. Neurologic examination cannot be evaluated as the patient is currently sedated and paralyzed. - Labs CBC & Chem 7: 11/20/20 03:51 11/20/20 03:51 Labs: Abnormal Lab Results - Last 24 Hours (Table) 11/19/20 11/19/20 11/19/20 Range/Units 12:23 16:22 22:46 RBC (3.80-5.40) m/uL Hgb (11.4-16.0) gm/dL Hct (34.0-46.0) % RDW (11.5-15.5) % ABG pH (7.35-7.45) ABG pCO2 (35-45) mmHg ABG pO2 (83-108) mmHg ABG HCO3 (21-25) mmol/L ABG Total CO2 (19-24) mmol/L ABG O2 Saturation (94-97) % Chloride (98-107) mmol/L Carbon Dioxide (22-30) mmol/L Glucose (74-99) mg/dL POC Glucose (mg/dL) 154 H 159 H 117 H (75-99) mg/dL AST (14-36) U/L ALT (4-34) U/L Alkaline Phosphatase (38-126) U/L Total Protein (6.3-8.2) g/dL Albumin (3.5-5.0) g/dL 11/20/20 11/20/20 11/20/20 Range/Units 00:02 01:15 03:51 RBC 3.13 L (3.80-5.40) m/uL Hgb 9.1 L (11.4-16.0) gm/dL Hct 29.1 L (34.0-46.0) % RDW 16.2 H (11.5-15.5) % ABG pH 7.33 L (7.35-7.45) ABG pCO2 54 H (35-45) mmHg ABG pO2 68 L (83-108) mmHg ABG HCO3 28 H (21-25) mmol/L ABG Total CO2 30 H (19-24) mmol/L ABG O2 Saturation 93.8 L (94-97) % Chloride (98-107) mmol/L Carbon Dioxide (22-30) mmol/L Glucose (74-99) mg/dL POC Glucose (mg/dL) 134 H (75-99) mg/dL AST (14-36) U/L ALT (4-34) U/L Alkaline Phosphatase (38-126) U/L Total Protein (6.3-8.2) g/dL Albumin (3.5-5.0) g/dL 11/20/20 11/20/20 11/20/20 Range/Units 03:51 04:03 05:14 RBC (3.80-5.40) m/uL Hgb (11.4-16.0) gm/dL Hct (34.0-46.0) % RDW (11.5-15.5) % ABG pH 7.31 L (7.35-7.45) ABG pCO2 58 H (35-45) mmHg ABG pO2 55 L* (83-108) mmHg ABG HCO3 30 H (21-25) mmol/L ABG Total CO2 31 H (19-24) mmol/L ABG O2 Saturation 88.1 L (94-97) % Chloride 108 H (98-107) mmol/L Carbon Dioxide 31 H (22-30) mmol/L Glucose 153 H (74-99) mg/dL POC Glucose (mg/dL) 159 H (75-99) mg/dL AST 101 H (14-36) U/L ALT 138 H (4-34) U/L Alkaline Phosphatase 139 H (38-126) U/L Total Protein 5.9 L (6.3-8.2) g/dL Albumin 3.2 L (3.5-5.0) g/dL 11/20/20 Range/Units 07:38 RBC (3.80-5.40) m/uL Hgb (11.4-16.0) gm/dL Hct (34.0-46.0) % RDW (11.5-15.5) % ABG pH (7.35-7.45) ABG pCO2 (35-45) mmHg ABG pO2 (83-108) mmHg ABG HCO3 (21-25) mmol/L ABG Total CO2 (19-24) mmol/L ABG O2 Saturation (94-97) % Chloride (98-107) mmol/L Carbon Dioxide (22-30) mmol/L Glucose (74-99) mg/dL POC Glucose (mg/dL) 150 H (75-99) mg/dL AST (14-36) U/L ALT (4-34) U/L Alkaline Phosphatase (38-126) U/L Total Protein (6.3-8.2) g/dL Albumin (3.5-5.0) g/dL Assessment and Plan Assessment: Acute on chronic hypoxemic respiratory failure, secondary to acute COVID 19 pneumonitis/pneumonia, status post remdesivir. Status post intubation and mechanical ventilation, and subsequent tracheostomy and PEG tube placement (11/13/2020), for failure to wean from mechanical ventilation. Worsening hypoxemic respiratory failure last night (11/19/2020), with need for higher levels of sedation, and paralysis, and increasing PEEP levels. The patient is also on 100% oxygen. History of COPD. Elevated liver enzymes, secondary to rhinovirus infection. Type 2 diabetes mellitus. History of obstructive sleep apnea syndrome. Hyperlipidemia. History of degenerative joint disease. History of bipolar disorder. Suspected critical illness polyneuropathy. Upper GI bleed, resolved. Plan: Plan dated 11/20/2020. Unfortunately, the patient took a turn for the worse last night. The patient had to be bagged for a number of hours area finally, we were able to gain c ontrol of the patient, but had to heavily sedate her, and paralyzed her. In addition, the FiO2 on the ventilator was increased to 100%, and we had to increase the PEEP up to 12 cm water. In addition, we change her vent settings from pressure regulated volume control, to volume assist control. With a long conversation with the daughter, Renetta. She has decided to make mom a DO NOT RESUSCITATE. That's very appropriate. She's also leaning towards comfort measures but maybe once to wait till additional family members arrive to see her. This may not happen until Monday. Overall prognosis is poor. We did let the daughter know that the patient may not survive until Monday. She is someth ing more happen catastrophically, we will limit our resuscitative efforts. Time with Patient: Greater than 30
[2020-11-20 11:30] LABS: Glucose,Whole Blood 97 mg/dL (75-99)
[2020-11-20] MEDS: CISATRACURIUM 200 MG in SODIUM CHLORIDE 0.9% 180 ML IV SCH ×2 (12:17→20:13)
--- NOTE | 2020-11-20 12:44 | P.PN ---
Subjective Progress Note Date: 11/20/20 CHIEF COMPLAINT: Shortness of breath HISTORY OF PRESENT ILLNESS: Patient seen and examined with Dr. Herrera. Patient remains in the ICU and is on mechanical ventilation. She is status post tracheostomy and PEG tube placement on 11/13/[address] Herrera. Last night patient's condition declined. She had worsening respiratory status. Patient is intubated and is sedated. Patient was restarted on Nimbex. Patient is tolerating tube feedings. Afebrile. WBC 9.5 patient's CODE STATUS changed to D O NOT RESUSCITATE. Awaiting family's decision regarding comfort care. PHYSICAL EXAM: VITAL SIGNS: Reviewed. GENERAL: Well-developed in no acute distress. HEENT: No sclera icterus. Extraocular movements grossly intact. Moist buccal mucosa. Head is atraumatic, normocephalic. Tracheostomy site clean dry and intact ABDOMEN: Soft. Nondistended. Nontender. PEG tube site clean dry and intact NEUROLOGIC: Patient intubated and sedated ASSESSMENT: 1. Acute on chronic hypoxic respiratory failure status post tracheostomy placement 2. Severe protein calorie nutrition status post PEG tube placement 3. Covid 19 pneumonia PLAN: -Continue supportive care -Continue ICU management -Continue PEG tube feedings Physician Racking Technician note has been reviewed by physician. Signing provider agrees with the documented findings, assessment, and plan of care. Objective - Vital Signs Vital signs: Vital Signs Temp 98.6 F 11/20/20 04:00 Pulse 67 11/20/20 12:00 Resp 34 H 11/20/20 12:00 BP 85/48 11/20/20 12:00 Pulse Ox 98 11/20/20 12:00 Intake & Output 11/19/20 11/20/20 11/20/20 18:59 06:59 18:59 Intake Total 1149 783.794 379.614 Output Total 780 845 195 Balance 369 -61.206 184.614 Weight 88.8 kg 88.8 kg Intake: IV 240 260 100 0.9NS 240 260 100 Intake, IV Titration 250 187.794 154.614 Amount Cisatracurium 200 mg In 75.774 106.259 Sodium Chloride 0.9% 180 ml @ 2 MCG/KG/MIN 10.512 mls/hr IV .Q19H2M [facility] Rx# :[id number] Voriconazole 350 mg In 250 Sodium Chloride 0.9% 250 ml @ 125 mls/hr IVPB Q12HR [facility] Rx#:[id number] propofoL 500 mg In Empty 112.020 48.355 Bag 1 bag @ Titrate IV . Q0M [facility] Rx#:[id number] Tube Feeding 569 306 125 Other 90 30 Output: Urine 780 845 195 Other: Voiding Method Indwelling Catheter Indwelling Catheter Indwelling Catheter ABP, PAP, CO, CI - Last Documented Arterial Blood Pressure 79/65 - Labs CBC & Chem 7: 11/20/20 03:51 11/20/20 03:51 Labs: Abnormal Lab Results - Last 24 Hours (Table) 11/19/20 11/19/20 11/20/20 Range/Units 16:22 22:46 00:02 RBC (3.80-5.40) m/uL Hgb (11.4-16.0) gm/dL Hct (34.0-46.0) % RDW (11.5-15.5) % ABG pH 7.33 L (7.35-7.45) ABG pCO2 54 H (35-45) mmHg ABG pO2 68 L (83-108) mmHg ABG HCO3 28 H (21-25) mmol/L ABG Total CO2 30 H (19-24) mmol/L ABG O2 Saturation 93.8 L (94-97) % Chloride (98-107) mmol/L Carbon Dioxide (22-30) mmol/L Glucose (74-99) mg/dL POC Glucose (mg/dL) 159 H 117 H (75-99) mg/dL AST (14-36) U/L ALT (4-34) U/L Alkaline Phosphatase (38-126) U/L Total Protein (6.3-8.2) g/dL Albumin (3.5-5.0) g/dL 11/20/20 11/20/20 11/20/20 Range/Units 01:15 03:51 03:51 RBC 3.13 L (3.80-5.40) m/uL Hgb 9.1 L (11.4-16.0) gm/dL Hct 29.1 L (34.0-46.0) % RDW 16.2 H (11.5-15.5) % ABG pH (7.35-7.45) ABG pCO2 (35-45) mmHg ABG pO2 (83-108) mmHg ABG HCO3 (21-25) mmol/L ABG Total CO2 (19-24) mmol/L ABG O2 Saturation (94-97) % Chloride 108 H (98-107) mmol/L Carbon Dioxide 31 H (22-30) mmol/L Glucose 153 H (74-99) mg/dL POC Glucose (mg/dL) 134 H (75-99) mg/dL AST 101 H (14-36) U/L ALT 138 H (4-34) U/L Alkaline Phosphatase 139 H (38-126) U/L Total Protein 5.9 L (6.3-8.2) g/dL Albumin 3.2 L (3.5-5.0) g/dL 11/20/20 11/20/20 11/20/20 Range/Units 04:03 05:14 07:38 RBC (3.80-5.40) m/uL Hgb (11.4-16.0) gm/dL Hct (34.0-46.0) % RDW (11.5-15.5) % ABG pH 7.31 L (7.35-7.45) ABG pCO2 58 H (35-45) mmHg ABG pO2 55 L* (83-108) mmHg ABG HCO3 30 H (21-25) mmol/L ABG Total CO2 31 H (19-24) mmol/L ABG O2 Saturation 88.1 L (94-97) % Chloride (98-107) mmol/L Carbon Dioxide (22-30) mmol/L Glucose (74-99) mg/dL POC Glucose (mg/dL) 159 H 150 H (75-99) mg/dL AST (14-36) U/L ALT (4-34) U/L Alkaline Phosphatase (38-126) U/L Total Protein (6.3-8.2) g/dL Albumin (3.5-5.0) g/dL
[2020-11-20 15:21] LABS: Glucose,Whole Blood 127 mg/dL (75-99)
[2020-11-20 15:55] LABS: Glucose,Whole Blood 145 mg/dL (75-99)
--- NOTE | 2020-11-20 16:09 | P.PN ---
Subjective Patient is a prolonged hospitalization secondary to home with 19 pneumonia patient is on ventilatory support and patient is presently on ventilator support with tracheostomy and PEG tube. Patient remains on the Decadron Lovenox. A she is also on TPN. 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 Patient had a mucous plug patient was overall clinical condition continued to get worse because of which the family decided on hospice and terminal being on Monday. Review of Systems: Unable to obtain All inpatient medications were reviewed and appropriate changes in these medic ations as dictated in the interval history and assessment and plan. Objective - Vital Signs Vital signs: Vital Signs Temp 98.6 F 11/20/20 04:00 Pulse 78 11/20/20 14:00 Resp 34 H 11/20/20 14:00 BP 108/64 11/20/20 14:00 Pulse Ox 99 11/20/20 14:00 Intake & Output 11/19/20 11/20/20 11/20/20 18:59 06:59 18:59 Intake Total 1149 783.794 506.614 Output Total 780 845 265 Balance 369 -61.206 241.614 Weight 88.8 kg 88.8 kg Intake: IV 240 260 140 0.9NS 240 260 140 Intake, IV Titration 250 187.794 204.614 Amount Cisatracurium 200 mg In 75.774 106.259 Sodium Chloride 0.9% 180 ml @ 2 MCG/KG/MIN 10.512 mls/hr IV .Q19H2M [facility] Rx# :[id number] Voriconazole 350 mg In 250 Sodium Chloride 0.9% 250 ml @ 125 mls/hr IVPB Q12HR [facility] Rx#:[id number] propofoL 500 mg In Empty 112.020 98.355 Bag 1 bag @ Titrate IV . Q0M [facility] Rx#:[id number] Tube Feeding 569 306 162 Other 90 30 Output: Urine 780 845 265 Other: Voiding Method Indwelling Catheter Indwelling Catheter Indwelling Catheter ABP, PAP, CO, CI - Last Documented Arterial Blood Pressure 79/65 - Exam PHYSICAL EXAMINATION: GENERAL: She is on ventilator support has a tracheostomy PEG tube TPN sedated HEENT: Pupils are round and equally reacting to light. EOMI. No scleral icterus. No conjunctival pallor. Normocephalic, atraumatic. No pharyngeal erythema. No thyromegaly. CARDIOVASCULAR: S1 and S2 present. No murmurs, rubs, or gallops. PULMONARY: Coarse breath sounds with expiratory wheezing. ABDOMEN: Soft, nontender, nondistended, normoactive bowel sounds. No palpable organomegaly. MUSCULOSKELETAL: No joint swelling or deformity. EXTREMITIES: No cyanosis, clubbing, or pedal edema. NEUROLOGICAL: Sedated SKIN: No rashes. - Labs CBC & Chem 7: 11/20/20 03:51 11/20/20 03:51 Labs: Abnormal Lab Results - Last 24 Hours (Table) 11/19/20 11/19/20 11/20/20 Range/Units 16:22 22:46 00:02 RBC (3.80-5.40) m/uL Hgb (11.4-16.0) gm/dL Hct (34.0-46.0) % RDW (11.5-15.5) % ABG pH 7.33 L (7.35-7.45) ABG pCO2 54 H (35-45) mmHg ABG pO2 68 L (83-108) mmHg ABG HCO3 28 H (21-25) mmol/L ABG Total CO2 30 H (19-24) mmol/L ABG O2 Saturation 93.8 L (94-97) % Chloride (98-107) mmol/L Carbon Dioxide (22-30) mmol/L Glucose (74-99) mg/dL POC Glucose (mg/dL) 159 H 117 H (75-99) mg/dL AST (14-36) U/L ALT (4-34) U/L Alkaline Phosphatase (38-126) U/L Total Protein (6.3-8.2) g/dL Albumin (3.5-5.0) g/dL 11/20/20 11/20/20 11/20/20 Range/Units 01:15 03:51 03:51 RBC 3.13 L (3.80-5.40) m/uL Hgb 9.1 L (11.4-16.0) gm/dL Hct 29.1 L (34.0-46.0) % RDW 16.2 H (11.5-15.5) % ABG pH (7.35-7.45) ABG pCO2 (35-45) mmHg ABG pO2 (83-108) mmHg ABG HCO3 (21-25) mmol/L ABG Total CO2 (19-24) mmol/L ABG O2 Saturation (94-97) % Chloride 108 H (98-107) mmol/L Carbon Dioxide 31 H (22-30) mmol/L Glucose 153 H (74-99) mg/dL POC Glucose (mg/dL) 134 H (75-99) mg/dL AST 101 H (14-36) U/L ALT 138 H (4-34) U/L Alkaline Phosphatase 139 H (38-126) U/L Total Protein 5.9 L (6.3-8.2) g/dL Albumin 3.2 L (3.5-5.0) g/dL 11/20/20 11/20/20 11/20/20 Range/Units 04:03 05:14 07:38 RBC (3.80-5.40) m/uL Hgb (11.4-16.0) gm/dL Hct (34.0-46.0) % RDW (11.5-15.5) % ABG pH 7.31 L (7.35-7.45) ABG pCO2 58 H (35-45) mmHg ABG pO2 55 L* (83-108) mmHg ABG HCO3 30 H (21-25) mmol/L ABG Total CO2 31 H (19-24) mmol/L ABG O2 Saturation 88.1 L (94-97) % Chloride (98-107) mmol/L Carbon Dioxide (22-30) mmol/L Glucose (74-99) mg/dL POC Glucose (mg/dL) 159 H 150 H (75-99) mg/dL AST (14-36) U/L ALT (4-34) U/L Alkaline Phosphatase (38-126) U/L Total Protein (6.3-8.2) g/dL Albumin (3.5-5.0) g/dL 11/20/20 11/20/20 Range/Units 15:19 15:54 RBC (3.80-5.40) m/uL Hgb (11.4-16.0) gm/dL Hct (34.0-46.0) % RDW (11.5-15.5) % ABG pH (7.35-7.45) ABG pCO2 (35-45) mmHg ABG pO2 (83-108) mmHg ABG HCO3 (21-25) mmol/L ABG Total CO2 (19-24) mmol/L ABG O2 Saturation (94-97) % Chloride (98-107) mmol/L Carbon Dioxide (22-30) mmol/L Glucose (74-99) mg/dL POC Glucose (mg/dL) 127 H 145 H (75-99) mg/dL AST (14-36) U/L ALT (4-34) U/L Alkaline Phosphatase (38-126) U/L Total Protein (6.3-8.2) g/dL Albumin (3.5-5.0) g/dL Assessment and Plan Plan: Acute on chronic hypoxemic respiratory failure prolonged ventilator support secondary to code 90 pneumonitis. Patient may have secondary fungal infection and bronchitis for which patient is on voriconazole. As mentioned above patient remains on ventilator support family meditation of the terminal wean and comfort care on Monday. -COPD -Type 2 diabetes mellitus -Obstructive sleep apnea -Hyperlipidemia -Critical illness polyneuropathy -Resolved upper GI bleed -Gastroesophageal reflux disease
--- NOTE | 2020-11-20 16:26 | PN ---
PROGRESS NOTE DATE OF SERVICE: 11/20/2020 REASON FOR FOLLOWUP: Pneumonia. INTERVAL HISTORY: The patient did have worsening respiratory status last night. She was noticed to have mucus plugging and has been put back on the mechanical ventilation, currently on 100% FiO2. The patient is hemodynamically stable not on pressor support and no fever has been recorded. PHYSICAL EXAMINATION: Blood pressure 108/64, pulse of 78, temperature .She is 99% on 100% FiO2. General description is a middle-aged female intubated on the vent. RESPIRATORY SYSTEM: Unlabored breathing, coarse breath sounds bilaterally. HEART: S1, S2. Regular rate and rhythm. ABDOMEN: Soft, no tenderness. LABS: Hemoglobin 9.1, white count 9.5. BUN of 16, creatinine 0.52. DIAGNOSTIC IMPRESSION AND PLAN: Patient with acute respiratory failure which is multifactorial in this patient with possible mucus plugging has been put back on the ventilator. May benefit from repeat sputum. She is currently covered with Vfend positive for aspergillosis. However, per discussion with the nursing staff patient may go hospice on Monday. Will follow the family wishes. MMMIHAELAL / IJN: [id number] /
[2020-11-20] MEDS: ACETAMINOPHEN TAB 325 MG TAB PO PRN (19:29)
[2020-11-20 20:04] LABS: Glucose,Whole Blood 141 mg/dL (75-99)
[2020-11-20] MEDS: ARIPiprazole 10 MG TAB PO SCH (20:08)
[2020-11-20] MEDS: INSULIN DETEMIR (LEVEMIR) 100 UNIT/ML SYR SQ SCH (20:08)
[2020-11-21 00:11] LABS: Glucose,Whole Blood 119 mg/dL (75-99)
[2020-11-21] MEDS: ARTIFICIAL TEARS-HYPROMELLOSE DROPS 15 ML BTL BOTH EYES SCH ×6 (00:11→20:32)
[2020-11-21] MEDS: INSULIN ASPART (NovoLOG) 100 UNIT/ML VIAL SQ SCH ×6 (00:13→20:32)
[2020-11-21] MEDS: ALBUTEROL HFA INHALER INHALATION SCH ×2 (03:23→07:36)
[2020-11-21 04:26] LABS: Anisocytosis Slight; Basophils % (A) 0 %; Eosinophils # (A) 0.2 k/uL (0-0.7); Eosinophils % (A) 4 %; HCT 26.6 % (34.0-46.0); HGB 8.5 gm/dL (11.4-16.0); Hypochromasia Moderate; Lymphocytes # (A) 0.8 k/uL (1.0-4.8); Lymphocytes % (A) 15 %; MCH 29.2 pg (25.0-35.0); MCHC 31.9 g/dL (31.0-37.0); MCV 91.3 fL (80.0-100.0); Mean Platelet Volume 7.4; Monocytes # (A) 0.3 k/uL (0-1.0); Monocytes % (A) 7 %; Neutrophils # (A) 3.8 k/uL (1.3-7.7); Neutrophils % (A) 72 %; Platelet Count 286 k/uL (150-450); Poikilocytosis Slight; RBC 2.91 m/uL (3.80-5.40); RDW 16.3 % (11.5-15.5); WBC 5.2 k/uL (3.8-10.6)
[2020-11-21 04:38] LABS: ALT 94 U/L (4-34); AST 46 U/L (14-36); African American GFR (CKD) >90 (>60 ml/min/1.73 sqM); Albumin 2.8 g/dL (3.5-5.0); Alkaline Phosphatase 111 U/L (38-126); Anion Gap 4 mmol/L; Blood Urea Nitrogen 18 mg/dL (7-17); Calcium 8.8 mg/dL (8.4-10.2); Carbon Dioxide 31 mmol/L (22-30); Chloride 110 mmol/L (98-107); Glucose 111 mg/dL (74-99); Non-African American GFR(CKD) >90 (>60 ml/min/1.73 sqM); Sodium 145 mmol/L (137-145); Total Bilirubin 0.5 mg/dL (0.2-1.3); Total Protein 5.4 g/dL (6.3-8.2)
[2020-11-21 05:16] LABS: ABG Base Excess 5.3 mmol/L; ABG HCO3 30 mmol/L (21-25); ABG Oxygen Saturation 98.6 % (94-97); ABG PCO2 50 mmHg (35-45); ABG PH 7.39 (7.35-7.45); ABG PO2 101 mmHg (83-108); ABG TCO2 32 mmol/L (19-24); Allen Test Performed? Yes
--- NOTE | 2020-11-21 06:54 | XR ---
EXAMINATION TYPE: XR chest 1V portable DATE OF EXAM: 11/21/2020 CLINICAL HISTORY: Difficulty breathing progress study. TECHNIQUE: Single AP portable semiupright view of the chest is obtained. COMPARISON: Chest x-ray from one day earlier and older studies. FINDINGS: Stable tracheostomy tube and left-sided PICC line. Reticular parenchymal changes bilateral ly remain present with increased right lung opacities and left basilar opacities again seen. Cardiac silhouette size stable and within normal limits. Underlying scoliosis redemonstrated. IMPRESSION: Chronic parenchymal changes with left basilar and diffuse right lung edema and/or infiltr ates are all redemonstrated. No significant change from one day earlier.
[2020-11-21] MEDS ORDERED: propofoL 100 ML IV ONE ×2 (08:11→14:33)
[2020-11-21] MEDS: ENOXAPARIN 40 MG/0.4 ML SYRINGE SQ SCH (08:14)
[2020-11-21] MEDS: CHLORHEXIDINE GLUCONATE 15 ML CUP MUCOUS MEM SCH ×2 (08:15→20:30)
[2020-11-21] MEDS: PANTOPRAZOLE 40 MG/10 ML VIAL IVP SCH ×2 (08:15→20:30)
[2020-11-21] MEDS: TOPIRAMATE 25 MG TAB PO SCH ×2 (08:15→20:30)
[2020-11-21] MEDS: ZINC SULFATE 220 MG CAP PO SCH (08:16)
[2020-11-21] MEDS: VORICONAZOLE IVPB SCH (08:16)
[2020-11-21] MEDS: predniSONE 10 MG TAB PO SCH (08:16)
[2020-11-21] MEDS: SODIUM CHLORIDE 0.9% IVPB SCH (08:16)
[2020-11-21] MEDS: ASCORBIC ACID 500 MG TAB PO SCH (08:18)
[2020-11-21] MEDS: lamoTRIgine 100 MG TAB PO SCH ×2 (08:18→20:29)
[2020-11-21] MEDS: LOSARTAN 50 MG TAB PO SCH (08:18)
[2020-11-21] MEDS: OXcarbazepine 150 MG TAB PO SCH ×2 (08:19→20:30)
[2020-11-21] MEDS: CHOLECALCIFEROL 25 MCG (1000 IU) TABLET PO SCH (08:19)
[2020-11-21] MEDS: LIDOCAINE 5% PATCH TOPICAL SCH (08:20)
[2020-11-21] MEDS: CISATRACURIUM 200 MG in SODIUM CHLORIDE 0.9% 180 ML IV SCH ×2 (08:26→20:31)
--- NOTE | 2020-11-21 09:37 | P.PN ---
Subjective Progress Note Date: 11/21/20 Principal diagnosis: Shortness of breath. On 10/22/2020 patient seen in follow-up, she is awake and alert, she remains on 6 L of oxygen her pulse ox is 90-93%, she is breathing comfortably, although still having fever spikes, with a T-max of 101.8F this morning, today's day 2 o f Remdesivir, we added colchicine, she is on oral Decadron 6 mg daily, she is on prophylactic dose of Lovenox, in addition to vitamins. Today's labs have been reviewed, showing d-dimer of 0.85, CRP is down to 4.6, associated LDH value from today, her pro-calcitonin level was 0.27, her influenza and RSV screen were negative. On 10/23/2020 patient seen in follow-up on medical floor, she is awake and alert, oriented 3, she is wheezy, has a congested cough, she is currently on 2 L of oxygen her pulse ox is between 87-93%, she still having some low-grade fevers, today's chest x-ray showing patchy perihilar and basilar infiltrates without significant change. Patient remains on Remdesivir, today is day 3 of treatment, in addition to Decadron, prophylactic doses of Lovenox in her d-dimer remains low at 0.62, in addition to vitamins and colchicine. Her inflammatory markers are coming down, her procalcitonin level was not elevated to 0.27 On 10/26/2019 patient seen in follow-up on medical floor, she is currently on high flow oxygen per year flow at 50 L and FiO2 of 82%, and her pulse ox is 91%, she states his breathing comfortably, overall her breathing is better, she is feeling better, she's had that no fever or chills, hemodynamically stable, no chest discomfort. 0.9 normal saline is infusing at 20 ML per hour, chest x-ray today showed coarse perihilar and basilar infiltrates unchanged from prior study. She finished her Remdesivir treatment yesterday, she remains on bronchodilators, she remains on dexamethasone 6 mg daily, subcu Lovenox 40 mg twice daily, oral Pepcid, vitamin C D and zinc. Today's labs have been reviewed, CBC is within normal limits, d-dimer 0.49, renal profile is unremarkable, CO2 was mildly elevated at 32, the rest of electrolytes were within normal limits, LDH is 346, and CRP is 2.3. No Altered mentation, patient is tolerating oral diet, no nausea vomiting no abdominal pain On 10/27/2020 patient seen in follow-up on medical floor. Patient remains on high flow oxygen per Airvo with 50 L and FiO2 of 82%, and her pulse ox has been 87-89%, patient feels more dyspneic on today's exam, she did have a fever spike earlier today in the morning however it is not recorded. She is coughing, however her cough is dry, nonproductive. No chest pain. Today's chest x-ray shows patchy perihilar basilar infiltrates noted to be slightly improved. Tory ent remains on empiric antibiotics in the form of Rocephin, she is on 6 mg oral dose of Decadron on a daily basis, she is on Lovenox 40 mg twice a day, patient to vitamin C D and zinc. Her last d-dimer yesterday was 0.49, today's labs have been reviewed. Pro-calcitonin is 0.22 on today's labs, inflammatory markers are improving. Progress note dated 10/28/2020. 60-year-old female with a history of severe hypoxemic respiratory failure, secondary to COVID 19 pneumonia. Today, the patient was on AIRVO at 60 L/m, and 90% FiO2, as well as a partial rebreather mask. Her saturations were only in the mid to high 80s and for that reason, the patient was transferred to the intensive care unit for further monitoring and treatment. The patient really has not shown much improvement over the last couple of days. Her chest x-ray actually looked a bit worse to us, but we did give her some Lasix just in case some of what we were seeing related to fluid overload. White count was 5.72, hemoglobin 12.9, hematocrit 39.8, and platelet count 224,000. Sodium was 134, potassium 4, chloride 94, CO2 31, anion gap 9, BUN 15, and creatinine 0.8. Vital signs showed a blood pressure of 87/45, heart rate 79, respiratory rate 24, and a normal temperature. Medications were reviewed and were appropriate. Progress note dated 10/30/2020 60-year-old female with a history of severe hypoxemic respiratory failure. The patient has a history of COVID 19 pneumonia. Currently, the patient is on BiPAP with an IPAP of 12 and EPAP of 6, and 100%. Yesterday, the nurse had a conversation with the patient and before the end that shift, the patient had decided to be a DO NOT RESUSCITATE. Sometime after that, the patient changed her mind. In addition to BiPAP, the patient is on saline at 10 mL an hour. The patient was admitted on 10/21/2020. We did have a long discussion again today about CODE STATUS. The patient did agree to go on life support if necessary. She stated though that if it appeared that she was not going to improve, that she would want to come off of life support and be made comfortable. The patient would not agree to tracheostomy or PEG tube placement. She has not eaten anyt warner she's been on the BiPAP 17/04. Today, we'll place a PICC line, and start her on total parenteral nutrition. Today's temperature is 97.9, heart rate 95, respiratory rate 17, blood pressure 108/59, and saturations between 85-90%. White count is 5.7, hemoglobin 13.4, hematocrit 40.3, and platelet count 268,000. D-dimer is 0.92. Sodium 134, potassium 3.8, chloride 96, CO2 30, anion gap 8, BUN 24, and creatinine 0.8. LDH is 905, C-reactive protein is 202. Chest x-ray stable to minimally improved. Progress note dated 10/31/2020. 60-year-old female, with a history of severe hypoxemic respiratory failure, secondary to COVID 19 pneumonia. The patient remains about the same. The patient is currently on BiPAP, with an IPAP of 12 pending EPAP 6. The patient's FiO2 is set at 100%. She's getting saline at 20 mL an hour and TPN at 30 mL/h with a goal of 60. She has a PICC line in place. The patient did receive, convalescent plasma yesterday. We have talked to her numerous times about CODE STATUS. The patient is currently a full code and would agree to at least short- term intubation and mechanical ventilation. She would not agree to tracheostomy or PEG tube placement. Currently, her white count is 7.5, hemoglobin 13.5, hematocrit 40.5, platelet count 283,000. The patient's d-dimer is 1.03. Sodium 134, potassium 3.8, chlorides 99, CO2 27, anion gap 8, BUN 23, and creatinine 0.67. Chest x-ray is stable to slightly improved. Progress note dated 11/01/2020. 60-year-old female, with a history of severe hypoxemic respiratory failure, secondary to COVID 19 pneumonia. The patient remains in the intensive care unit. She is in room 251. She is on BiPAP with settings of IPAP 12 and EPAP 6, and 100%. She's getting TPN at 60 mL and saline at KVO. The patient's x-ray continues to show bilateral diffuse patchy infiltrates. Today's sodium is 136, potassium 4.1, chloride 101, CO2 30, anion gap 5, BUN 23, and creatinine 0.65. LDH is 8 O2. C-reactive protein is 33.4. Chest x-ray shows bilateral patchy infiltrates, which are unchanged. The patient remains on appropriate medications. On 2020 patient seen in follow-up in the intensive care unit, she is cu rrently on VC plus mode of ventilation with a rate of 34, target volume of 400, FiO2 of 50% and PEEP of 14, inspiratory time is 0.9. This morning blood gases revealed a pO2 of 74, pCO2 42, and pH 7.45. She is currently lightly sedated on Diprivan at 20 mics per kilo per minute, 0.9 normal saline is at 20 ML per hour, patient is receiving tube feedings, she is on vital high protein at 27 with a g oal of 27 and standard water flushes. Patient is status post tracheostomy and PEG tube placement on 11/13/[address] Tidwell, she is in sinus mechanism, she has not required any vasopressors. Her last chest x-ray was done on the showing coarse infiltrates throughout both lungs with more consolidative processes at the right lung base, improving basilar aeration was noted. This morning's labs have been reviewed, white blood cell count of 6.0, hemoglobin is 8.4, sodium is 141, potassium 3.5, chloride was 108, CO2 is 29, BUN is 25, creatinine 0.7. AST was 57, ALT was 63, alkaline phosphatase was 79. Cultures have been reviewed, bloody urine have been negative, latest sputum culture from 11/13/2020 revealed Aspergillus fumigatus. ID service is following, patient is currently on cefepime. Patient remains on 6 mg of dexamethasone IV daily, she is on prophylactic dose of Lovenox 40 mg daily. Patient has been producing 30- 50 ML of urine on the regular basis. Patient does follow commands and moves all 4 extremities. No new chest x-ray today, patient was rechecked for COVID 19 on 11/11/2020 and was found to be positive Progress note dated 11/17/2020. 60-year-old female seen today in the intensive care unit. The patient has been in the hospital for 27 days. She was initially admitted with COVID 19 pneumonia and acute and severe hypoxemic respiratory failure. She has a history of hypertension, type 2 diabetes, hyperlipidemia, COPD, fibromyalgia, sleep apnea syndrome, and chronic hypoxemic respiratory failure. For many days, the patient was not intubated. Finally, the patient did get intubated, and ended up with a tracheostomy and feeding tube. Yesterday, the patient was thinking about comfort measures but apparently she has changed her mind and would like to continue to try to get better. The goal will be to try to get her to a long- term acute care facility. She currently remains on the ventilator, on the pressure regulated volume control modality also known as VC plus. Her respiratory rate is 34, her targeted tidal volume 400, her inspiratory time is 0.9 seconds, her FiO2 is 50%, and her PEEP is 14. Arterial blood gases show a PaO2 of 78, PaCO2 of 42, and a pH is 7.45. Currently, she is on saline at KVO, propofol at 15 mcg/kg/m, and vital high protein at 43, with a goal of 43 mL an hour. The patient's Decadron will be discontinued in favor of prednisone. She's been on steroids for a number of weeks. We will eventually wean the pr ednisone completely off. Her chest x-ray continues to show diffuse bilateral infiltrates. Progress note dated 11/18/2020. 60-year-old female, again seen here in the intensive care unit. She is in room 251. She was initially admitted a number of days back, maybe almost 30, with a diagnosis of COVID 19 pneumonia, with acute hypoxemic respiratory failure. The patient eventually was intubated, and because of failure to wean, had a tracheostomy and PEG tube placed. Currently, the patient remains on the VC plus mode of ventilation. Her targeted tidal volume is 400 mL, inspiratory time, 0.9 seconds, rate is 34, FiO2 50%, and PEEP is 14, to be reduced down to 10 cm water. Arterial blood gases show a PaO2 of 89, PaCO2 of 43, and a pH of 7.43. The blood gases show a relative hypoxemia, and normal acid base status. The patient's getting saline at 20 mL an hour, and propofol has been turned off. She is receiving vital high protein at 43, with a goal of 43 mL an hour. The plan is to try to get this patient off to long-term acute care. We'll make sure that they are consulted. We will get her PEEP down to 8 cm of water. Currently, she is off propofol. Laboratory data today includes a white count of 6.2, hemoglobin 8.6, hematocrit 26.0, and platelet count 200,000. Sodium 143, potassium 3.7, chlorides 109, CO2 29, anion gap 5, BUN 20, and creatinine 0.57. Chest x-ray continues to show bilateral infiltrates. Progress note dated 11/19/2020. 60-year-old female, again seen in the intensive care unit, room 251. She's been in the hospital for nearly a month. The patient was admitted on 10/21/2020. Her initial admission diagnosis was that of acute hypoxemic respiratory failure, secondary to COVID 19 pneumonia. The patient remains on mechanical ventilator. She is on the pressure regulated volume control modality or VC plus. With a rate of 34, a targeted tidal volume of 400, inspiratory time of 0.9 seconds, FiO2 50%, and a PEEP of 10. Gen. blood gases show a PaO2 of 150, PaCO2 of 46, and a pH is 7.39. The PEEP is reduced from 10 down to a PEEP of 5. Currently, she is on saline at KVO, propofol, which is currently off, and vital high protein, 53 mL an hour, which is goal. She had uneventful night according to the nurse. In my opinion, she is ready to be transferred to a long-term acute care facility. Currently, her white count is 5.7, hemoglobin 8.4, hematocrit 25.8, and a platelet count which is normal. Sodium is 143, potassium 3.7, chlorides 108, CO2 29, anion gap 6, BUN 19, creatinine 0.59. Microbiology is currently still negative, and chest x-ray shows diffuse bilateral infiltrates. Progress note dated 11/20/2020. 60-year-old female, again seen in the intensive care unit, and room 251. She's been in the hospital now for 30 days. She was admitted back on 10/21/2020. Her initial diagnosis was that of acute hypoxemic respiratory failure, secondary to COVID 19 pneumonia. The patient remains on mechanical ventilator. Last night, she developed worsening respiratory status. I was called numerous times by the nurse. Initially, they were bagging the patient because every time they put her back on the ventilator, she desaturated. Finally, I was able to sedate the patient appropriately, and paralyzed the patient with Nimbex. At that point, she was a bit more stable. We did have a conversation with the daughter Renetta today. They have made the patient a DO NOT RESUSCITATE. They're planning to withdraw life support on Monday. Currently, she is on the volume assist control mode, rate 34, tidal volume 400, FiO2 100%, and PEEP is now 12. On the same settings, but a PEEP of 8, PaO2 was 55, PaCO2 was 58, and the pH was 7.31. The patient is on saline at KVO, propofol at 30 mcg/kg/m, and Nimbex, at 2 mcg/kg/m, with [id number] monitoring. In addition, the patient is getting tube feeds, with vital high protein, 51 mL an hour, which is goal. White count is 9.5, hemoglobin 9.1, hematocrit 29.1, and platelet count 299,000. Sodium is 144, potassium 4.2, chlorides 108, CO2 31, anion gap 5, BUN 16, and creatinine 0.52. Microbiology is essentially negative save for Aspergillus fumigated send a sputum from November 13. Chest x-ray continues to show diffuse bilateral infiltrates, with some worsening in the left lung. Progress note dated 11/21/2020. 60-year-old female again seen in the intensive care unit, room 251. She's now been in the hospital for early 1 days. She was admitted back on 10/21/2020. Her initial diagnosis was that of acute hypoxemic respiratory failure, secondary to COVID 19 pneumonia. The patient remains on mechanical ventilator. She is now on the volume assist control mode, rate 34, tidal volume 400, FiO2 100%, and PEEP of 12. Arterial blood gases show a PaO2 101, pCO2 of 50, pH 7.4. The patient is currently on saline at 20 mL an hour, Nimbex at 3 g kilogram per minute, propofol at 20 mcg/kg/m, and vital high protein at 37 mL an hour, which is goal. The patient's also receiving [id number] monitoring given the fact that the patient is paralyzed. A long conversation with the daughter yesterday. The daughter did make the patient a DO NOT RESUSCITATE yesterday. Also, the plans are for comfort measures, likely tomorrow, because of family members that apparently need to arrive into town. Unnecessary medications can be discontinued. Some of those have really been discontinued. I also mentioned to the nurse that we really should not be doing any additional x-rays, or blood draws. Those are unnecessary. The plan would be to taper off the ventilator, place her on trach collar, and add some morphine sulfate. Objective - Vital Signs Vital signs: Vital Signs Temp 97.9 F 11/21/20 08:00 Pulse 86 11/21/20 09:00 Resp 20 11/21/20 09:00 BP 115/64 11/21/20 09:00 Pulse Ox 99 11/21/20 09:00 Intake & Output 11/20/20 11/21/20 11/21/20 18:59 06:59 18:59 Intake Total 414.536 6286.115 258.567 Output Total 1240 715 60 Balance -425.569 292.115 198.567 Weight 88.8 kg 88.451 kg Intake: IV 220 240 20 0.9NS 220 240 20 Intake, IV Titration 254.431 270.115 201.567 Amount Cisatracurium 200 mg In 106.259 125.093 201.567 Sodium Chloride 0.9% 180 ml @ 2 MCG/KG/MIN 10.512 mls/hr IV .Q19H2M RAE Rx# :[id number] propofoL 500 mg In Empty 148.172 145.022 Bag 1 bag @ Titrate IV . Q0M RAE Rx#:[id number] Tube Feeding 310 407 37 Other 30 90 Output: Urine 1240 715 60 Other: Voiding Method Indwelling Catheter Indwelling Catheter ABP, PAP, CO, CI - Last Documented Arterial Blood Pressure 79/65 - Exam Currently ventilated, sedated and paralyzed, with a midline tracheostomy tube. HEENT examination is grossly unremarkable. Mucous membranes are moist. Neck supple. Full range of motion. No adenopathy thyromegaly or neck vein distention. Midline tracheostomy tube noted. Cardiovascular examination reveals regular rhythm rate. S1-S2 normal. No S3 or S4. No discernible murmur noted. Heart sounds are distant and heart rate is 86 bpm. Lungs reveal coarse bilateral rhonchi, and a few crackles. Breath sounds equal bilaterally but diminished throughout. No wheezes. Breath sounds are unchanged. Abdomen soft bowel sounds are heard. No masses or tenderness. A PEG tube is noted. Extremities are intact. No cyanosis clubbing or edema. Skin is without rash or lesion. Neurologic examination cannot be evaluated as the patient is currently sedated and paralyzed. - Labs CBC & Chem 7: 11/21/20 04:00 11/21/20 04:00 Labs: Abnormal Lab Results - Last 24 Hours (Table) 11/20/20 11/20/20 11/20/20 Range/Units 15:19 15:54 20:02 RBC (3.80-5.40) m/uL Hgb (11.4-16.0) gm/dL Hct (34.0-46.0) % RDW (11.5-15.5) % Lymphocytes # (1.0-4.8) k/uL ABG pCO2 (35-45) mmHg ABG HCO3 (21-25) mmol/L ABG Total CO2 (19-24) mmol/L ABG O2 Saturation (94-97) % Chloride (98-107) mmol/L Carbon Dioxide (22-30) mmol/L BUN (7-17) mg/dL Glucose (74-99) mg/dL POC Glucose (mg/dL) 127 H 145 H 141 H (75-99) mg/dL AST (14-36) U/L ALT (4-34) U/L Total Protein (6.3-8.2) g/dL Albumin (3.5-5.0) g/dL 11/21/20 11/21/20 11/21/20 Range/Units 00:09 04:00 04:00 RBC 2.91 L (3.80-5.40) m/uL Hgb 8.5 L (11.4-16.0) gm/dL Hct 26.6 L (34.0-46.0) % RDW 16.3 H (11.5-15.5) % Lymphocytes # 0.8 L (1.0-4.8) k/uL ABG pCO2 (35-45) mmHg ABG HCO3 (21-25) mmol/L ABG Total CO2 (19-24) mmol/L ABG O2 Saturation (94-97) % Chloride 110 H (98-107) mmol/L Carbon Dioxide 31 H (22-30) mmol/L BUN 18 H (7-17) mg/dL Glucose 111 H (74-99) mg/dL POC Glucose (mg/dL) 119 H (75-99) mg/dL AST 46 H (14-36) U/L ALT 94 H (4-34) U/L Total Protein 5.4 L (6.3-8.2) g/dL Albumin 2.8 L (3.5-5.0) g/dL 11/21/20 Range/Units 05:11 RBC (3.80-5.40) m/uL Hgb (11.4-16.0) gm/dL Hct (34.0-46.0) % RDW (11.5-15.5) % Lymphocytes # (1.0-4.8) k/uL ABG pCO2 50 H (35-45) mmHg ABG HCO3 30 H (21-25) mmol/L ABG Total CO2 32 H (19-24) mmol/L ABG O2 Saturation 98.6 H (94-97) % Chloride (98-107) mmol/L Carbon Dioxide (22-30) mmol/L BUN (7-17) mg/dL Glucose (74-99) mg/dL POC Glucose (mg/dL) (75-99) mg/dL AST (14-36) U/L ALT (4-34) U/L Total Protein (6.3-8.2) g/dL Albumin (3.5-5.0) g/dL Assessment and Plan Assessment: Acute on chronic hypoxemic respiratory failure, secondary to acute COVID 19 pneumonitis/pneumonia, status post remdesivir. Status post intubation and mechanical ventilation, and subsequent tracheostomy and PEG tube placement (11/13/2020), for failure to wean from mechanical ventilation. Worsening hypoxemic respiratory failure last night (11/19/2020), with need for higher levels of sedation, and paralysis, and increasing PEEP levels. The patient is also on 100% oxygen. History of COPD. Elevated liver enzymes, secondary to rhinovirus infection. Type 2 diabetes mellitus. History of obstructive sleep apnea syndrome. Hyperlipidemia. History of degenerative joint disease. History of bipolar disorder. Suspected critical illness polyneuropathy. Upper GI bleed, resolved. Plan: Plan dated 11/21/2020. The patient is now a DO NOT RESUSCITATE. The family is planning to have comfort measures instituted tomorrow. Currently, her white count is 5.2, hemoglobin 8.5, hematocrit 26.6, and platelet count 286,000. Blood gases show a PaO2 of 101, PaCO2 of 50, and pH is 7.39. The patient's sodium is 145, potassium 4, chlorides 110, CO2 31, anion gap is 4, BUN is 18, and creatinine 0.55. Chest x- ray continues to show bilateral diffuse infiltrates. Sputum was positive for Aspergillus fumigators. The patient remains on saline at 20 mL an hour, Nimbex 3 mcg/kg/m, propofol at 20 mcg/kg/m, and vital high protein at goal, which is 37 mL an hour. Prognosis is very poor. I did have a long conversation with the vipin meneses yesterday. We will continue to follow. Time with Patient: Greater than 30
[2020-11-21 12:04] LABS: Glucose,Whole Blood 147 mg/dL (75-99)
--- NOTE | 2020-11-21 12:41 | P.PN ---
Subjective Progress Note Date: 11/21/20 Patient is a prolonged hospitalization secondary to home with 19 pneumonia patient is on ventilatory support and patient is presently on ventilator support with tracheostomy and PEG tube. Patient remains on the Decadron Lovenox. A she is also on TPN. 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 Patient had a mucous plug patient was overall clinical condition continued to get worse because of which the family decided on hospice and terminal being on Monday. 11/21/2020 Patient seen in follow-up in ICU, remains intubated on ventilatory support, and settings 100% FiO2, PEEP of 12, TG 450. Family is also on hospice measures, planning for terminal wean on Monday. Review of Systems: Unable to obtain All inpatient medications were reviewed and appropriate changes in these medications as dictated in the interval history and assessment and plan. Objective - Vital Signs Vital signs: Vital Signs Temp 98.7 F 11/21/20 12:00 Pulse 85 11/21/20 12:00 Resp 15 11/21/20 12:00 BP 101/51 11/21/20 12:00 Pulse Ox 100 11/21/20 12:00 Intake & Output 11/20/20 11/21/20 11/21/20 18:59 06:59 18:59 Intake Total 698.200 6421.115 603.567 Output Total 1240 715 400 Balance -425.569 292.115 203.567 Weight 88.8 kg 88.451 kg Intake: IV 220 240 120 0.9NS 220 240 120 Intake, IV Titration 254.431 270.115 201.567 Amount Cisatracurium 200 mg In 106.259 125.093 201.567 Sodium Chloride 0.9% 180 ml @ 2 MCG/KG/MIN 10.512 mls/hr IV .Q19H2M RAE Rx# :[id number] propofoL 500 mg In Empty 148.172 145.022 Bag 1 bag @ Titrate IV . Q0M RAE Rx#:[id number] Tube Feeding 310 407 222 Other 30 90 60 Output: Urine 1240 715 400 Other: Voiding Method Indwelling Catheter Indwelling Catheter Indwelling Catheter ABP, PAP, CO, CI - Last Documented Arterial Blood Pressure 79/65 - Exam PHYSICAL EXAMINATION: GENERAL: She is on ventilator support has a tracheostomy PEG tube TPN sedated HEENT: Pupils are round and equally reacting to light. EOMI. No scleral icterus. No conjunctival pallor. Normocephalic, atraumatic. No pharyngeal erythema. No thyromegaly. CARDIOVASCULAR: S1 and S2 present. No murmurs, rubs, or gallops. PULMONARY: Coarse breath sounds with expiratory wheezing. ABDOMEN: Soft, nontender, nondistended, normoactive bowel sounds. No palpable organomegaly. MUSCULOSKELETAL: No joint swelling or deformity. EXTREMITIES: No cyanosis, clubbing, or pedal edema. NEUROLOGICAL: Sedated SKIN: No rashes. - Labs CBC & Chem 7: 11/21/20 04:00 11/21/20 04:00 Labs: Abnormal Lab Results - Last 24 Hours (Table) 11/20/20 11/20/20 11/20/20 Range/Units 15:19 15:54 20:02 RBC (3.80-5.40) m/uL Hgb (11.4-16.0) gm/dL Hct (34.0-46.0) % RDW (11.5-15.5) % Lymphocytes # (1.0-4.8) k/uL ABG pCO2 (35-45) mmHg ABG HCO3 (21-25) mmol/L ABG Total CO2 (19-24) mmol/L ABG O2 Saturation (94-97) % Chloride (98-107) mmol/L Carbon Dioxide (22-30) mmol/L BUN (7-17) mg/dL Glucose (74-99) mg/dL POC Glucose (mg/dL) 127 H 145 H 141 H (75-99) mg/dL AST (14-36) U/L ALT (4-34) U/L Total Protein (6.3-8.2) g/dL Albumin (3.5-5.0) g/dL 11/21/20 11/21/20 11/21/20 Range/Units 00:09 04:00 04:00 RBC 2.91 L (3.80-5.40) m/uL Hgb 8.5 L (11.4-16.0) gm/dL Hct 26.6 L (34.0-46.0) % RDW 16.3 H (11.5-15.5) % Lymphocytes # 0.8 L (1.0-4.8) k/uL ABG pCO2 (35-45) mmHg ABG HCO3 (21-25) mmol/L ABG Total CO2 (19-24) mmol/L ABG O2 Saturation (94-97) % Chloride 110 H (98-107) mmol/L Carbon Dioxide 31 H (22-30) mmol/L BUN 18 H (7-17) mg/dL Glucose 111 H (74-99) mg/dL POC Glucose (mg/dL) 119 H (75-99) mg/dL AST 46 H (14-36) U/L ALT 94 H (4-34) U/L Total Protein 5.4 L (6.3-8.2) g/dL Albumin 2.8 L (3.5-5.0) g/dL 11/21/20 11/21/20 Range/Units 05:11 12:03 RBC (3.80-5.40) m/uL Hgb (11.4-16.0) gm/dL Hct (34.0-46.0) % RDW (11.5-15.5) % Lymphocytes # (1.0-4.8) k/uL ABG pCO2 50 H (35-45) mmHg ABG HCO3 30 H (21-25) mmol/L ABG Total CO2 32 H (19-24) mmol/L ABG O2 Saturation 98.6 H (94-97) % Chloride (98-107) mmol/L Carbon Dioxide (22-30) mmol/L BUN (7-17) mg/dL Glucose (74-99) mg/dL POC Glucose (mg/dL) 147 H (75-99) mg/dL AST (14-36) U/L ALT (4-34) U/L Total Protein (6.3-8.2) g/dL Albumin (3.5-5.0) g/dL Assessment and Plan Assessment: Acute on chronic hypoxemic respiratory failure prolonged ventilator support secondary to code 90 pneumonitis. Patient may have secondary fungal infection and bronchitis for which patient is on voriconazole. As mentioned above patient remains on ventilator support family meditation of the terminal wean and comfort care on Monday. -COPD -Type 2 diabetes mellitus -Obstructive sleep apnea -Hyperlipidemia -Critical illness polyneuropathy -Resolved upper GI bleed -Gastroesophageal reflux disease
--- NOTE | 2020-11-21 12:49 | PN ---
PROGRESS NOTE DATE OF SERVICE: 11/21/2020 REASON FOR FOLLOWUP: Pneumonia. INTERVAL HISTORY: The patient is currently afebrile. Patient is hemodynamically stable, not on pressor support. Patient remains to be on 100% FiO2. No significant purulent secretions through the ET, diarrhea or any other changes reported by nursing staff. PHYSICAL EXAMINATION: Blood pressure 140/81 with a pulse of 59. Temperature is 97.9. She is 99% on 100% FiO2. General description is a middle-aged female lying in bed in no distress. Respiratory system: Unlabored breathing. Coarse bilateral rhonchi. Heart S1-S2 regular rate and rhythm. ABDOMEN: Soft, no tenderness. LABS: Hemoglobin 8.5, white count 5.2 with a BUN of 18, creatinine 0.55. DIAGNOSTIC IMPRESSION AND PLAN: Patient with acute respiratory failure which is multifactorial in this patient who had acute COVID-19 pneumonia that was treated and subsequent respiratory failure and prolonged exposure to antibiotic with concern for possible secondary fungal pneumonia with aspergillosis in the sputum, covered with Vfend. She did have a setback the night before and has been put back on the vent support and apparently the family wants to wean off life support possibly tomorrow. We will follow the family wishes. Continue supportive care. MMODL / IJN: [id number] /
[2020-11-21 16:33] VITALS: RESP 34
[2020-11-21 16:33] LABS: Glucose,Whole Blood 146 mg/dL (75-99)
--- NOTE | 2020-11-21 19:42 | P.PN ---
Subjective Progress Note Date: 11/21/20 She is now DNR pending comfort care for tomorrow per nurse. On nimbex and cannot stay on vent. Objective - Vital Signs Vital signs: Vital Signs Temp 98.9 F 11/21/20 16:00 Pulse 92 11/21/20 19:00 Resp 34 H 11/21/20 19:00 BP 144/73 11/21/20 19:00 Pulse Ox 100 11/21/20 19:00 Intake & Output 11/21/20 11/21/20 11/22/20 06:59 18:59 06:59 Intake Total 9755.424 8268.567 Output Total 715 895 Balance 292.115 137.567 Weight 88.451 kg Intake: IV 240 260 0.9NS 240 260 Intake, IV Titration 270.115 201.567 Amount Cisatracurium 200 mg In 125.093 201.567 Sodium Chloride 0.9% 180 ml @ 2 MCG/KG/MIN 10.512 mls/hr IV .Q19H2M RAE Rx# :[id number] propofoL 500 mg In Empty 145.022 Bag 1 bag @ Titrate IV . Q0M RAE Rx#:[id number] Tube Feeding 407 481 Other 90 90 Output: Urine 715 895 Other: Voiding Method Indwelling Catheter Indwelling Catheter ABP, PAP, CO, CI - Last Documented Arterial Blood Pressure 79/65 - Labs CBC & Chem 7: 11/21/20 04:00 11/21/20 04:00 Labs: Abnormal Lab Results - Last 24 Hours (Table) 11/20/20 11/21/20 11/21/20 Range/Units 20:02 00:09 04:00 RBC 2.91 L (3.80-5.40) m/uL Hgb 8.5 L (11.4-16.0) gm/dL Hct 26.6 L (34.0-46.0) % RDW 16.3 H (11.5-15.5) % Lymphocytes # 0.8 L (1.0-4.8) k/uL ABG pCO2 (35-45) mmHg ABG HCO3 (21-25) mmol/L ABG Total CO2 (19-24) mmol/L ABG O2 Saturation (94-97) % Chloride (98-107) mmol/L Carbon Dioxide (22-30) mmol/L BUN (7-17) mg/dL Glucose (74-99) mg/dL POC Glucose (mg/dL) 141 H 119 H (75-99) mg/dL AST (14-36) U/L ALT (4-34) U/L Total Protein (6.3-8.2) g/dL Albumin (3.5-5.0) g/dL 11/21/20 11/21/20 11/21/20 Range/Units 04:00 05:11 12:03 RBC (3.80-5.40) m/uL Hgb (11.4-16.0) gm/dL Hct (34.0-46.0) % RDW (11.5-15.5) % Lymphocytes # (1.0-4.8) k/uL ABG pCO2 50 H (35-45) mmHg ABG HCO3 30 H (21-25) mmol/L ABG Total CO2 32 H (19-24) mmol/L ABG O2 Saturation 98.6 H (94-97) % Chloride 110 H (98-107) mmol/L Carbon Dioxide 31 H (22-30) mmol/L BUN 18 H (7-17) mg/dL Glucose 111 H (74-99) mg/dL POC Glucose (mg/dL) 147 H (75-99) mg/dL AST 46 H (14-36) U/L ALT 94 H (4-34) U/L Total Protein 5.4 L (6.3-8.2) g/dL Albumin 2.8 L (3.5-5.0) g/dL 11/21/20 Range/Units 16:32 RBC (3.80-5.40) m/uL Hgb (11.4-16.0) gm/dL Hct (34.0-46.0) % RDW (11.5-15.5) % Lymphocytes # (1.0-4.8) k/uL ABG pCO2 (35-45) mmHg ABG HCO3 (21-25) mmol/L ABG Total CO2 (19-24) mmol/L ABG O2 Saturation (94-97) % Chloride (98-107) mmol/L Carbon Dioxide (22-30) mmol/L BUN (7-17) mg/dL Glucose (74-99) mg/dL POC Glucose (mg/dL) 146 H (75-99) mg/dL AST (14-36) U/L ALT (4-34) U/L Total Protein (6.3-8.2) g/dL Albumin (3.5-5.0) g/dL
[2020-11-21 20:16] LABS: Glucose,Whole Blood 119 mg/dL (75-99)
[2020-11-21] MEDS: ARIPiprazole 10 MG TAB PO SCH (20:30)
[2020-11-21] MEDS: INSULIN DETEMIR (LEVEMIR) 100 UNIT/ML SYR SQ SCH (20:31)
[2020-11-22] MEDS: ARTIFICIAL TEARS-HYPROMELLOSE DROPS 15 ML BTL BOTH EYES SCH ×3 (00:23→08:27)
[2020-11-22 00:29] LABS: Glucose,Whole Blood 127 mg/dL (75-99)
[2020-11-22] MEDS: INSULIN ASPART (NovoLOG) 100 UNIT/ML VIAL SQ SCH ×3 (02:22→08:27)
[2020-11-22 05:11] LABS: Glucose,Whole Blood 147 mg/dL (75-99)
[2020-11-22] MEDS: MORPHINE SULFATE 2 MG/ML SYRINGE IVP PRN (05:19)
[2020-11-22 08:08] VITALS: BP 136/71; PULSE 110; TEMP 98.9
[2020-11-22] MEDS: CHLORHEXIDINE GLUCONATE 15 ML CUP MUCOUS MEM SCH (08:29)
[2020-11-22] MEDS: lamoTRIgine 100 MG TAB PO SCH (08:29)
[2020-11-22] MEDS: ENOXAPARIN 40 MG/0.4 ML SYRINGE SQ SCH (08:29)
[2020-11-22] MEDS: TOPIRAMATE 25 MG TAB PO SCH (08:30)
[2020-11-22] MEDS: PANTOPRAZOLE 40 MG/10 ML VIAL IVP SCH (08:30)
[2020-11-22] MEDS: LOSARTAN 50 MG TAB PO SCH (08:30)
[2020-11-22] MEDS: predniSONE 10 MG TAB PO SCH (08:30)
[2020-11-22] MEDS: OXcarbazepine 150 MG TAB PO SCH (08:30)
[2020-11-22] MEDS: LIDOCAINE 5% PATCH TOPICAL SCH (08:30)
[2020-11-22] MEDS ORDERED: LORazepam 2 MG/ML INJ IV PRN (09:24)
[2020-11-22] MEDS ORDERED: MORPHINE SULFATE (100 MG/2 ML) 100 MG in SODIUM CHLORIDE 0.9% 100 ML IV SCH (09:30)
[2020-11-22] MEDS ORDERED: SCOPOLAMINE 1.5MG/72HR PATCH TRANSDERM SCH (09:30)
--- NOTE | 2020-11-22 12:16 | P.PN ---
Subjective Progress Note Date: 11/22/20 Principal diagnosis: Shortness of breath. On 10/22/2020 patient seen in follow-up, she is awake and alert, she remains on 6 L of oxygen her pulse ox is 90-93%, she is breathing comfortably, although still having fever spikes, with a T-max of 101.8F this morning, today's day 2 o f Remdesivir, we added colchicine, she is on oral Decadron 6 mg daily, she is on prophylactic dose of Lovenox, in addition to vitamins. Today's labs have been reviewed, showing d-dimer of 0.85, CRP is down to 4.6, associated LDH value from today, her pro-calcitonin level was 0.27, her influenza and RSV screen were negative. On 10/23/2020 patient seen in follow-up on medical floor, she is awake and alert, oriented 3, she is wheezy, has a congested cough, she is currently on 2 L of oxygen her pulse ox is between 87-93%, she still having some low-grade fevers, today's chest x-ray showing patchy perihilar and basilar infiltrates without significant change. Patient remains on Remdesivir, today is day 3 of treatment, in addition to Decadron, prophylactic doses of Lovenox in her d-dimer remains low at 0.62, in addition to vitamins and colchicine. Her inflammatory markers are coming down, her procalcitonin level was not elevated to 0.27 On 10/26/2019 patient seen in follow-up on medical floor, she is currently on high flow oxygen per year flow at 50 L and FiO2 of 82%, and her pulse ox is 91%, she states his breathing comfortably, overall her breathing is better, she is feeling better, she's had that no fever or chills, hemodynamically stable, no chest discomfort. 0.9 normal saline is infusing at 20 ML per hour, chest x-ray today showed coarse perihilar and basilar infiltrates unchanged from prior study. She finished her Remdesivir treatment yesterday, she remains on bronchodilators, she remains on dexamethasone 6 mg daily, subcu Lovenox 40 mg twice daily, oral Pepcid, vitamin C D and zinc. Today's labs have been reviewed, CBC is within normal limits, d-dimer 0.49, renal profile is unremarkable, CO2 was mildly elevated at 32, the rest of electrolytes were within normal limits, LDH is 346, and CRP is 2.3. No Altered mentation, patient is tolerating oral diet, no nausea vomiting no abdominal pain On 10/27/2020 patient seen in follow-up on medical floor. Patient remains on high flow oxygen per Airvo with 50 L and FiO2 of 82%, and her pulse ox has been 87-89%, patient feels more dyspneic on today's exam, she did have a fever spike earlier today in the morning however it is not recorded. She is coughing, however her cough is dry, nonproductive. No chest pain. Today's chest x-ray shows patchy perihilar basilar infiltrates noted to be slightly improved. Tory ent remains on empiric antibiotics in the form of Rocephin, she is on 6 mg oral dose of Decadron on a daily basis, she is on Lovenox 40 mg twice a day, patient to vitamin C D and zinc. Her last d-dimer yesterday was 0.49, today's labs have been reviewed. Pro-calcitonin is 0.22 on today's labs, inflammatory markers are improving. Progress note dated 10/28/2020. 60-year-old female with a history of severe hypoxemic respiratory failure, secondary to COVID 19 pneumonia. Today, the patient was on AIRVO at 60 L/m, and 90% FiO2, as well as a partial rebreather mask. Her saturations were only in the mid to high 80s and for that reason, the patient was transferred to the intensive care unit for further monitoring and treatment. The patient really has not shown much improvement over the last couple of days. Her chest x-ray actually looked a bit worse to us, but we did give her some Lasix just in case some of what we were seeing related to fluid overload. White count was 5.72, hemoglobin 12.9, hematocrit 39.8, and platelet count 224,000. Sodium was 134, potassium 4, chloride 94, CO2 31, anion gap 9, BUN 15, and creatinine 0.8. Vital signs showed a blood pressure of 87/45, heart rate 79, respiratory rate 24, and a normal temperature. Medications were reviewed and were appropriate. Progress note dated 10/30/2020 60-year-old female with a history of severe hypoxemic respiratory failure. The patient has a history of COVID 19 pneumonia. Currently, the patient is on BiPAP with an IPAP of 12 and EPAP of 6, and 100%. Yesterday, the nurse had a conversation with the patient and before the end that shift, the patient had decided to be a DO NOT RESUSCITATE. Sometime after that, the patient changed her mind. In addition to BiPAP, the patient is on saline at 10 mL an hour. The patient was admitted on 10/21/2020. We did have a long discussion again today about CODE STATUS. The patient did agree to go on life support if necessary. She stated though that if it appeared that she was not going to improve, that she would want to come off of life support and be made comfortable. The patient would not agree to tracheostomy or PEG tube placement. She has not eaten anyt warner she's been on the BiPAP 17/04. Today, we'll place a PICC line, and start her on total parenteral nutrition. Today's temperature is 97.9, heart rate 95, respiratory rate 17, blood pressure 108/59, and saturations between 85-90%. White count is 5.7, hemoglobin 13.4, hematocrit 40.3, and platelet count 268,000. D-dimer is 0.92. Sodium 134, potassium 3.8, chloride 96, CO2 30, anion gap 8, BUN 24, and creatinine 0.8. LDH is 905, C-reactive protein is 202. Chest x-ray stable to minimally improved. Progress note dated 10/31/2020. 60-year-old female, with a history of severe hypoxemic respiratory failure, secondary to COVID 19 pneumonia. The patient remains about the same. The patient is currently on BiPAP, with an IPAP of 12 pending EPAP 6. The patient's FiO2 is set at 100%. She's getting saline at 20 mL an hour and TPN at 30 mL/h with a goal of 60. She has a PICC line in place. The patient did receive, convalescent plasma yesterday. We have talked to her numerous times about CODE STATUS. The patient is currently a full code and would agree to at least short- term intubation and mechanical ventilation. She would not agree to tracheostomy or PEG tube placement. Currently, her white count is 7.5, hemoglobin 13.5, hematocrit 40.5, platelet count 283,000. The patient's d-dimer is 1.03. Sodium 134, potassium 3.8, chlorides 99, CO2 27, anion gap 8, BUN 23, and creatinine 0.67. Chest x-ray is stable to slightly improved. Progress note dated 11/01/2020. 60-year-old female, with a history of severe hypoxemic respiratory failure, secondary to COVID 19 pneumonia. The patient remains in the intensive care unit. She is in room 251. She is on BiPAP with settings of IPAP 12 and EPAP 6, and 100%. She's getting TPN at 60 mL and saline at KVO. The patient's x-ray continues to show bilateral diffuse patchy infiltrates. Today's sodium is 136, potassium 4.1, chloride 101, CO2 30, anion gap 5, BUN 23, and creatinine 0.65. LDH is 8 O2. C-reactive protein is 33.4. Chest x-ray shows bilateral patchy infiltrates, which are unchanged. The patient remains on appropriate medications. On 2020 patient seen in follow-up in the intensive care unit, she is cu rrently on VC plus mode of ventilation with a rate of 34, target volume of 400, FiO2 of 50% and PEEP of 14, inspiratory time is 0.9. This morning blood gases revealed a pO2 of 74, pCO2 42, and pH 7.45. She is currently lightly sedated on Diprivan at 20 mics per kilo per minute, 0.9 normal saline is at 20 ML per hour, patient is receiving tube feedings, she is on vital high protein at 27 with a g oal of 27 and standard water flushes. Patient is status post tracheostomy and PEG tube placement on 11/13/[address] Tidwell, she is in sinus mechanism, she has not required any vasopressors. Her last chest x-ray was done on the showing coarse infiltrates throughout both lungs with more consolidative processes at the right lung base, improving basilar aeration was noted. This morning's labs have been reviewed, white blood cell count of 6.0, hemoglobin is 8.4, sodium is 141, potassium 3.5, chloride was 108, CO2 is 29, BUN is 25, creatinine 0.7. AST was 57, ALT was 63, alkaline phosphatase was 79. Cultures have been reviewed, bloody urine have been negative, latest sputum culture from 11/13/2020 revealed Aspergillus fumigatus. ID service is following, patient is currently on cefepime. Patient remains on 6 mg of dexamethasone IV daily, she is on prophylactic dose of Lovenox 40 mg daily. Patient has been producing 30- 50 ML of urine on the regular basis. Patient does follow commands and moves all 4 extremities. No new chest x-ray today, patient was rechecked for COVID 19 on 11/11/2020 and was found to be positive Progress note dated 11/17/2020. 60-year-old female seen today in the intensive care unit. The patient has been in the hospital for 27 days. She was initially admitted with COVID 19 pneumonia and acute and severe hypoxemic respiratory failure. She has a history of hypertension, type 2 diabetes, hyperlipidemia, COPD, fibromyalgia, sleep apnea syndrome, and chronic hypoxemic respiratory failure. For many days, the patient was not intubated. Finally, the patient did get intubated, and ended up with a tracheostomy and feeding tube. Yesterday, the patient was thinking about comfort measures but apparently she has changed her mind and would like to continue to try to get better. The goal will be to try to get her to a long- term acute care facility. She currently remains on the ventilator, on the pressure regulated volume control modality also known as VC plus. Her respiratory rate is 34, her targeted tidal volume 400, her inspiratory time is 0.9 seconds, her FiO2 is 50%, and her PEEP is 14. Arterial blood gases show a PaO2 of 78, PaCO2 of 42, and a pH is 7.45. Currently, she is on saline at KVO, propofol at 15 mcg/kg/m, and vital high protein at 43, with a goal of 43 mL an hour. The patient's Decadron will be discontinued in favor of prednisone. She's been on steroids for a number of weeks. We will eventually wean the pr ednisone completely off. Her chest x-ray continues to show diffuse bilateral infiltrates. Progress note dated 11/18/2020. 60-year-old female, again seen here in the intensive care unit. She is in room 251. She was initially admitted a number of days back, maybe almost 30, with a diagnosis of COVID 19 pneumonia, with acute hypoxemic respiratory failure. The patient eventually was intubated, and because of failure to wean, had a tracheostomy and PEG tube placed. Currently, the patient remains on the VC plus mode of ventilation. Her targeted tidal volume is 400 mL, inspiratory time, 0.9 seconds, rate is 34, FiO2 50%, and PEEP is 14, to be reduced down to 10 cm water. Arterial blood gases show a PaO2 of 89, PaCO2 of 43, and a pH of 7.43. The blood gases show a relative hypoxemia, and normal acid base status. The patient's getting saline at 20 mL an hour, and propofol has been turned off. She is receiving vital high protein at 43, with a goal of 43 mL an hour. The plan is to try to get this patient off to long-term acute care. We'll make sure that they are consulted. We will get her PEEP down to 8 cm of water. Currently, she is off propofol. Laboratory data today includes a white count of 6.2, hemoglobin 8.6, hematocrit 26.0, and platelet count 200,000. Sodium 143, potassium 3.7, chlorides 109, CO2 29, anion gap 5, BUN 20, and creatinine 0.57. Chest x-ray continues to show bilateral infiltrates. Progress note dated 11/19/2020. 60-year-old female, again seen in the intensive care unit, room 251. She's been in the hospital for nearly a month. The patient was admitted on 10/21/2020. Her initial admission diagnosis was that of acute hypoxemic respiratory failure, secondary to COVID 19 pneumonia. The patient remains on mechanical ventilator. She is on the pressure regulated volume control modality or VC plus. With a rate of 34, a targeted tidal volume of 400, inspiratory time of 0.9 seconds, FiO2 50%, and a PEEP of 10. Gen. blood gases show a PaO2 of 150, PaCO2 of 46, and a pH is 7.39. The PEEP is reduced from 10 down to a PEEP of 5. Currently, she is on saline at KVO, propofol, which is currently off, and vital high protein, 53 mL an hour, which is goal. She had uneventful night according to the nurse. In my opinion, she is ready to be transferred to a long-term acute care facility. Currently, her white count is 5.7, hemoglobin 8.4, hematocrit 25.8, and a platelet count which is normal. Sodium is 143, potassium 3.7, chlorides 108, CO2 29, anion gap 6, BUN 19, creatinine 0.59. Microbiology is currently still negative, and chest x-ray shows diffuse bilateral infiltrates. Progress note dated 11/20/2020. 60-year-old female, again seen in the intensive care unit, and room 251. She's been in the hospital now for 30 days. She was admitted back on 10/21/2020. Her initial diagnosis was that of acute hypoxemic respiratory failure, secondary to COVID 19 pneumonia. The patient remains on mechanical ventilator. Last night, she developed worsening respiratory status. I was called numerous times by the nurse. Initially, they were bagging the patient because every time they put her back on the ventilator, she desaturated. Finally, I was able to sedate the patient appropriately, and paralyzed the patient with Nimbex. At that point, she was a bit more stable. We did have a conversation with the daughter Renetta today. They have made the patient a DO NOT RESUSCITATE. They're planning to withdraw life support on Monday. Currently, she is on the volume assist control mode, rate 34, tidal volume 400, FiO2 100%, and PEEP is now 12. On the same settings, but a PEEP of 8, PaO2 was 55, PaCO2 was 58, and the pH was 7.31. The patient is on saline at KVO, propofol at 30 mcg/kg/m, and Nimbex, at 2 mcg/kg/m, with [id number] monitoring. In addition, the patient is getting tube feeds, with vital high protein, 51 mL an hour, which is goal. White count is 9.5, hemoglobin 9.1, hematocrit 29.1, and platelet count 299,000. Sodium is 144, potassium 4.2, chlorides 108, CO2 31, anion gap 5, BUN 16, and creatinine 0.52. Microbiology is essentially negative save for Aspergillus fumigated send a sputum from November 13. Chest x-ray continues to show diffuse bilateral infiltrates, with some worsening in the left lung. Progress note dated 11/21/2020. 60-year-old female again seen in the intensive care unit, room 251. She's now been in the hospital for early 1 days. She was admitted back on 10/21/2020. Her initial diagnosis was that of acute hypoxemic respiratory failure, secondary to COVID 19 pneumonia. The patient remains on mechanical ventilator. She is now on the volume assist control mode, rate 34, tidal volume 400, FiO2 100%, and PEEP of 12. Arterial blood gases show a PaO2 101, pCO2 of 50, pH 7.4. The patient is currently on saline at 20 mL an hour, Nimbex at 3 g kilogram per minute, propofol at 20 mcg/kg/m, and vital high protein at 37 mL an hour, which is goal. The patient's also receiving [id number] monitoring given the fact that the patient is paralyzed. A long conversation with the daughter yesterday. The daughter did make the patient a DO NOT RESUSCITATE yesterday. Also, the plans are for comfort measures, likely tomorrow, because of family members that apparently need to arrive into town. Unnecessary medications can be discontinued. Some of those have really been discontinued. I also mentioned to the nurse that we really should not be doing any additional x-rays, or blood draws. Those are unnecessary. The plan would be to taper off the ventilator, place her on trach collar, and add some morphine sulfate. Progress note dated 11/22/2020. 60-year-old female, again seen in the intensive care unit this morning, room 251. The patient was initially admitted back on 10/21/2020, with a diagnosis of COVID 19 pneumonia and acute hypoxemic respiratory failure. The patient eventually underwent a tracheostomy and PEG tube placement for failure to wean from mechanical ventilation. This morning, she is on the volume assist control mode, rate 34, tidal volume 400, FiO2 100%, and PEEP of 12. She's currently on herbal fall at 40 mcg/kg/m, Nimbex has been turned off, saline at 20 mL an hour, and vital high protein at 37 mL an hour. Apparently the family has decided to go comfort care on this patient sometime today. A couple days ago, the family did decide to make the patient DO NOT RESUSCITATE. Unfortunately, this was a patient who initially, did not want intubation and mechanical ventilation and certainly did not want long-term mechanical ventilation. Anyway, despite our best efforts to get her turned around, she deteriorated couple days ago, right before she was to go to long-term acute care, and will probably not last long off mechanical ventilation. Really quite a sad case. Labs and blood gases, and chest x-ray, were not done today in anticipation of comfort care. Objective - Vital Signs Vital signs: Vital Signs Temp 98.9 F 11/22/20 08:00 Pulse 110 H 11/22/20 08:00 Resp 34 H 11/22/20 08:00 BP 136/71 11/22/20 08:00 Pulse Ox 96 11/22/20 08:00 Intake & Output 11/21/20 11/22/20 11/22/20 18:59 06:59 18:59 Intake Total 1032.567 876.700 337.413 Output Total 895 690 110 Balance 137.567 186.700 227.413 Weight 88.6 kg Intake: IV 260 220 40 0.9NS 260 220 40 Intake, IV Titration 201.567 189.700 193.413 Amount Cisatracurium 200 mg In 201.567 121.063 126.670 Sodium Chloride 0.9% 180 ml @ 2 MCG/KG/MIN 10.512 mls/hr IV .Q19H2M [facility] Rx# :[id number] Morphine Sulfate (100 mg/ 28.152 2 ml) 100 mg In Sodium Chloride 0.9% 100 ml @ 1 MG/HR 1.02 mls/hr IV . Q24H [facility] Rx#:[id number] propofoL 1,000 mg In 68.637 38.591 Empty Bag 1 bag @ Titrate IV .Q0M [facility] Rx#: [id number] Tube Feeding 481 407 74 Other 90 60 30 Output: Urine 895 690 110 Other: Voiding Method Indwelling Catheter Indwelling Catheter Indwelling Catheter ABP, PAP, CO, CI - Last Documented Arterial Blood Pressure 79/65 - Exam Currently ventilated, sedated, with a midline tracheostomy tube. HEENT examination is grossly unremarkable. Mucous membranes are moist. Neck supple. Full range of motion. No adenopathy thyromegaly or neck vein distention. Midline tracheostomy tube noted. Cardiovascular examination reveals regular rhythm rate. S1-S2 normal. No S3 or S4. No discernible murmur noted. Heart sounds are distant and heart rate is 102 bpm. Lungs reveal coarse bilateral rhonchi, and a few crackles. Breath sounds equal bilaterally but diminished throughout. No wheezes. Breath sounds are unchanged. Abdomen soft bowel sounds are heard. No masses or tenderness. A PEG tube is noted. Extremities are intact. No cyanosis clubbing or edema. Skin is without rash or lesion. Neurologic examination cannot be evaluated as the patient is currently sedated. - Labs CBC & Chem 7: 11/21/20 04:00 11/21/20 04:00 Labs: Abnormal Lab Results - Last 24 Hours (Table) 11/21/20 11/21/20 11/22/20 Range/Units 16:32 20:14 00:27 POC Glucose (mg/dL) 146 H 119 H 127 H (75-99) mg/dL 11/22/20 Range/Units 05:08 POC Glucose (mg/dL) 147 H (75-99) mg/dL Assessment and Plan Assessment: Acute on chronic hypoxemic respiratory failure, secondary to acute COVID 19 pneumonitis/pneumonia, status post remdesivir. Status post intubation and mechanical ventilation, and subsequent tracheostomy and PEG tube placement (11/13/2020), for failure to wean from mechanical ventilation. Worsening hypoxemic respiratory failure last night (11/19/2020), with need for higher levels of sedation, and paralysis, and increasing PEEP levels. The patient is also on 100% oxygen. History of COPD. Elevated liver enzymes, secondary to rhinovirus infection. Type 2 diabetes mellitus. History of obstructive sleep apnea syndrome. Hyperlipidemia. History of degenerative joint disease. History of bipolar disorder. Suspected critical illness polyneuropathy. Upper GI bleed, resolved. Plan: Plan dated 11/22/2020. Later this morning, the patient will be taken off life support. We will supply her with oxygen and 100%, and a morphine sulfate drip, and implement the comfort care orders. I don't suspect that the patient will last very long off of mechanical ventilation. Unfortunately, this patient has been in the hospital for 32 days. Despite our best efforts to get her turned around and improve, she deteriorated a couple days ago, and needed full ventilatory support, with sedation and paralysis. A couple days ago, the family decided to make the patient DO NOT RESUSCITATE. Subsequent to that, they decided that a note was enough, and his decided to go comfort care. In the end, I think that was the best thing for this patient. Time with Patient: Greater than 30
--- NOTE | 2020-11-22 14:51 | P.DS ---
Providers Date of admission: 10/21/20 10:12 Attending physician: Rhett Garcia Consults: 10/21/20 10:10 Consult Physician Urgent Consulting Provider: Angel Virk Consult Reason/Comments: COVID pneumonia Do you want consulting provider notified?: Yes 10/25/20 11:28 Consult Physician Routine Consulting Provider: Lora Stevens Consult Reason/Comments: worsening covid? Do you want consulting provider notified?: Yes 11/12/20 08:36 Consult Physician Routine Consulting Provider: Eagle Herrera Consult Reason/Comments: tracheostomy and peg tube placement Do you want consulting provider notified?: Yes Primary care physician: Amado Bowers Hospital Course: Patient is a prolonged hospitalization secondary to home with 19 pneumonia patient is on ventilatory support and patient is presently on ventilator support with tracheostomy and PEG tube. Patient remains on the Decadron Lovenox. A she is also on TPN. 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 Patient had a mucous plug patient was overall clinical condition continued to get worse because of which the family decided on hospice and terminal being on Monday. 11/21/2020 Patient seen in follow-up in ICU, remains intubated on ventilatory support, and settings 100% FiO2, PEEP of 12, TG 450. Family is also on hospice measures, planning for terminal wean on Monday. 11/22/2020 Patient ventilator support was discontinued and patient was terminally weaned him for measures were initiated. Patient subsequently please refer to nursing staff documentation for exact time of . Assessment: Acute on chronic hypoxemic respiratory failure prolonged ventilator support secondary to covid 19 pneumonitis. Patient may have secondary fungal infection and bronchitis and patient was terminally weaned today subsequently . -COPD -Type 2 diabetes mellitus -Obstructive sleep apnea -Hyperlipidemia -Critical illness polyneuropathy -Resolved upper GI bleed -Gastroesophageal reflux disease Patient Condition at Discharge: Serious Plan - Discharge Summary Discharge Rx Participant: No New Discharge Prescriptions: No Action Atorvastatin [Lipitor] 20 mg PO DAILY tab Losartan [Cozaar] 50 mg PO DAILY Pregabalin [Lyrica] 100 mg PO BID lamoTRIgine [LaMICtal] 150 mg PO BID Potassium Chloride [Klor-Con 10] 10 meq PO TID OXcarbazepine [Trileptal] 150 mg PO BID Meclizine [Antivert] 25 mg PO Q8H PRN PRN Reason: Nausea And Vomiting Fluticasone/Salmeterol [Advair Hfa 115-21 Mcg Inhaler] 2 puff INHALATION RT- BID dexAMETHasone [Dexamethasone] 2 mg PO Q8H PRN PRN Reason: Migraine Headache oxyCODONE-APAP 10-325MG [Percocet 10-325 mg] 1 tab PO Q6H PRN PRN Reason: Pain Topiramate [Topamax] 50 mg PO BID Albuterol Sulfate [Ventolin HFA] 2 puff INHALATION RT-QID PRN PRN Reason: Shortness Of Breath Albuterol Sulfate [Accuneb] 0.63 mg INHALATION RT-TID PRN PRN Reason: Shortness Of Breath ARIPiprazole [Abilify] 20 mg PO DAILY ARIPiprazole [Abilify] 10 mg PO HS clonazePAM [KlonoPIN] 0.5 mg PO BID sitaGLIPtin [Januvia] 50 mg PO DAILY Chlorthalidone 50 mg PO DAILY SUMAtriptan SUCCINATE [Imitrex] 100 mg PO BID PRN PRN Reason: Migraine Headache Discharge Medication List Atorvastatin [Lipitor] 20 mg PO DAILY tab 04/30/15 [Rx] Losartan [Cozaar] 50 mg PO DAILY 08/13/15 [History] Pregabalin [Lyrica] 100 mg PO BID 01/07/16 [History] Fluticasone/Salmeterol [Advair Hfa 115-21 Mcg Inhaler] 2 puff INHALATION RT-BID 11/18/16 [History] Meclizine [Antivert] 25 mg PO Q8H PRN 11/18/16 [History] OXcarbazepine [Trileptal] 150 mg PO BID 11/18/16 [History] Potassium Chloride [Klor-Con 10] 10 meq PO TID 11/18/16 [History] lamoTRIgine [LaMICtal] 150 mg PO BID 11/18/16 [History] ARIPiprazole [Abilify] 10 mg PO HS 10/21/20 [History] ARIPiprazole [Abilify] 20 mg PO DAILY 10/21/20 [History] Albuterol Sulfate [Accuneb] 0.63 mg INHALATION RT-TID PRN 10/21/20 [History] Albuterol Sulfate [Ventolin HFA] 2 puff INHALATION RT-QID PRN 10/21/20 [History] Chlorthalidone 50 mg PO DAILY 10/21/20 [History] SUMAtriptan SUCCINATE [Imitrex] 100 mg PO BID PRN 10/21/20 [History] Topiramate [Topamax] 50 mg PO BID 10/21/20 [History] clonazePAM [KlonoPIN] 0.5 mg PO BID 10/21/20 [History] dexAMETHasone [Dexamethasone] 2 mg PO Q8H PRN 10/21/20 [History] oxyCODONE-APAP 10-325MG [Percocet 10-325 mg] 1 tab PO Q6H PRN 10/21/20 [History] sitaGLIPtin [Januvia] 50 mg PO DAILY 10/21/20 [History] Follow up Appointment(s)/Referral(s): Amdao Bowers MD [Primary Care Provider] - 1-2 days Discharge Disposition: - Preliminary Cause of Preliminary Cause of : Covid 19
--- NOTE | 2020-11-25 15:55 | CDI ---
Documentation Clarification Form Date: 11/25/2020 03:37:50 PM From: Linh Mcnulty CCS, CCDS Admit Date: 10/21/2020 10:12:00 AM Patient Name: Bobbi Chavira Visit Number: [id number] Discharge Date: 11/22/2020 11:50:00 AM ATTENTION: The Clinical Documentation Specialists (CDI) and [facility] Coding Staff appreciate your assistance in clarifying documentation. Please respond to the clarification below the line at the bottom and electronically sign. The CDI & [facility] Coding staff will review the response and follow-up if needed. Please note: Queries are made part of the Legal Health Record. If you have any questions, please contact the author of this message via ITS. Dr. Dick Sol: The patient's Hemoglobin and Hematocrit dropped from 15.1/ on admission (10/21/2020) to 8.5 (11/21/2020). The patient developed Upper GI Bleeding and was diagnosed with Erosive Gastritis. Per the 11/07 Pulmonary/Critical Care Progress Note: "Acute on chronic hypoxemic respiratory failure secondary to acute COVID 19 pneumonitis, status post Remdesivir, currently on IV Decadron and she is also on Colchicine and Lovenox had to be discontinued because of upper GI bleeding. Plan: Stop Lovenox for now because of a coffee-ground emesis and suspected upper GI bleeding put the patient IV Protonix " History/Risk Factors Per the 10/21 ED Note patient Past Medical History: COPD, DM II, Asthma, Fibromyalgia, Hyperlipidemia, Hypertension, Home O2 at night. Clinical indicators: Presented to the ED on 10/21 with SOB, Fever, Headache, Chest congestion. Clinical Impression: Pneumonia due to COVID-19 Virus 10/21 COVID: Positive. 11/11 COVID: Positive LABS: 10/21 Hemoglobin: 15.1, 11/09: 10.3, 11/11: 9.9, 11/15: 8.6, 11/21: 8.5 10/21 Hematocrit: 46.1, 11/10: 33.4, 11/11: 31.0, 11/15: 27.2, 11/21: 26.6 Treatment 10/21: Lovenox 40 mg sq Daily, IV Remdesivir. 10/30 TPN started. Transfused 1 unit Convalescent Plasma. No other blood transfusions. In your professional opinion, please clarify the significance of the above lab values: Acute Blood Loss Anemia Other Blood Loss Anemia Other Anemia Other, please specify: Unable to determine (Last Revision: June 2017) Acute Blood Loss Anemia MTDD
== END 2020-11-22 11:50 | disposition expired | DRG 4 ==
LOC: EC 08:18 → 4SSUR 10:12 → 2SICU 10-28 12:32
PROVIDERS: ADMIT Hospitalist; ATTEND Hospitalist
PROC: XW033E5 Introduction of Remdesivir Anti-infective into Peripheral Vein, Percutaneous Approach, New Technology Group 5 (ICD-10-PCS; 2020-10-22)
PROC: 5A0955A Assistance with Respiratory Ventilation, Greater than 96 Consecutive Hours, High Flow/Velocity Cannula (ICD-10-PCS; 2020-10-22)
PROC: 5A09557 Assistance with Respiratory Ventilation, Greater than 96 Consecutive Hours, Continuous Positive Airway Pressure (ICD-10-PCS; 2020-10-28)
PROC: 02HV33Z Insertion of Infusion Device into Superior Vena Cava, Percutaneous Approach (ICD-10-PCS; 2020-10-30)
PROC: 3E0436Z Introduction of Nutritional Substance into Central Vein, Percutaneous Approach (ICD-10-PCS; 2020-10-30)
PROC: XW14325 Transfusion of Convalescent Plasma (Nonautologous) into Central Vein, Percutaneous Approach, New Technology Group 5 (ICD-10-PCS; 2020-10-30)
PROC: 5A1955Z Respiratory Ventilation, Greater than 96 Consecutive Hours (ICD-10-PCS; 2020-11-06)
PROC: 0D9670Z Drainage of Stomach with Drainage Device, Via Natural or Artificial Opening (ICD-10-PCS; 2020-11-06)
PROC: 0BH17EZ Insertion of Endotracheal Airway into Trachea, Via Natural or Artificial Opening (ICD-10-PCS; 2020-11-06)
PROC: 0DH63UZ Insertion of Feeding Device into Stomach, Percutaneous Approach (ICD-10-PCS; 2020-11-13)
PROC: 3E0G76Z Introduction of Nutritional Substance into Upper GI, Via Natural or Artificial Opening (ICD-10-PCS; 2020-11-13)
PROC: 0B110F4 Bypass Trachea to Cutaneous with Tracheostomy Device, Open Approach (ICD-10-PCS; principal; 2020-11-13 10:45)
DX: A41.89 Other specified sepsis (principal); J12.82 Pneumonia due to coronavirus disease 2019; U07.1 COVID-19; E43 Unspecified severe protein-calorie malnutrition; J15.6 Pneumonia due to other Gram-negative bacteria; K29.01 Acute gastritis with bleeding; J80 Acute respiratory distress syndrome; G62.81 Critical illness polyneuropathy; B44.9 Aspergillosis, unspecified; J44.0 Chronic obstructive pulmonary disease with (acute) lower respiratory infection; J44.1 Chronic obstructive pulmonary disease with (acute) exacerbation; E87.1 Hypo-osmolality and hyponatremia; F31.30 Bipolar disorder, current episode depressed, mild or moderate severity, unspecified; D62 Acute posthemorrhagic anemia; F25.9 Schizoaffective disorder, unspecified; I95.9 Hypotension, unspecified; E11.42 Type 2 diabetes mellitus with diabetic polyneuropathy; Z66 Do not resuscitate; Z51.5 Encounter for palliative care; E11.65 Type 2 diabetes mellitus with hyperglycemia; E78.5 Hyperlipidemia, unspecified; I10 Essential (primary) hypertension; M79.7 Fibromyalgia; G43.909 Migraine, unspecified, not intractable, without status migrainosus; F41.9 Anxiety disorder, unspecified; G47.33 Obstructive sleep apnea (adult) (pediatric); K21.9 Gastro-esophageal reflux disease without esophagitis; M15.0 Primary generalized (osteo)arthritis; E66.9 Obesity, unspecified; D72.810 Lymphocytopenia; E87.6 Hypokalemia; E83.42 Hypomagnesemia; R74.01 Elevation of levels of liver transaminase levels; T38.0X5A Adverse effect of glucocorticoids and synthetic analogues, initial encounter; E87.70 Fluid overload, unspecified; Z79.899 Other long term (current) drug therapy; Z79.51 Long term (current) use of inhaled steroids; Z79.84 Long term (current) use of oral hypoglycemic drugs; Z79.01 Long term (current) use of anticoagulants; Z87.820 Personal history of traumatic brain injury; Z99.81 Dependence on supplemental oxygen; Z98.890 Other specified postprocedural states; Z96.651 Presence of right artificial knee joint; Z87.891 Personal history of nicotine dependence; Z68.35 Body mass index [BMI] 35.0-35.9, adult; Z87.440 Personal history of urinary (tract) infections; Z86.010 Personal history of colon polyps; Z96.641 Presence of right artificial hip joint; Z91.19 Patient's noncompliance with other medical treatment and regimen; Z88.6 Allergy status to analgesic agent; Z80.0 Family history of malignant neoplasm of digestive organs; Z80.8 Family history of malignant neoplasm of other organs or systems; Z82.3 Family history of stroke; Z82.0 Family history of epilepsy and other diseases of the nervous system; Z82.49 Family history of ischemic heart disease and other diseases of the circulatory system; Z71.3 Dietary counseling and surveillance
CPT/HCPCS: 36415; 36573; 36600; 43246; 71045; 71275; 80048; 80053; 80202; 81001; 82330; 82550; 82728; 82805; 83605; 83615; 83625; 83735; 84100; 84132; 84145; 84478; 85025; 85027; 85379; 85610; 85730; 86140; 86850; 86900; 86901; 87040; 87070; 87086; 87205; 87305; 87636; 93005; 94002; 94003; 94640; 94660; 94760; 96361; 96365; 96375; 99285